=== PATIENT | female | born 1970 | race Caucasian/White ===

== ENCOUNTER 2024-11-06 08:31 | Inpatient (IN) | payer OTHER ==
[2024-11-06 09:23] LABS: Absolute Eosinophils 0.1 K/uL (0-0.5); Absolute Lymphocytes (CBC) 0.8 K/uL (0.7-4.9); Absolute Monocytes 0.3 K/uL (0.1-1.3); Absolute Neutrophil 7.2 K/uL (1.8-8.0); Basophils % 0.4 % (0-1.3); Eosinophils % 0.6 % (0-4.4); Hematocrit 30.7 % (36.0-45.0); Hemoglobin 9.8 g/dL (12.0-15.0); Lymphocytes % 9.2 % (15.3-44.8); MCH 24.8 pg (27.0-35.0); MCHC 31.9 g/dL (32.0-36.0); MCV 77.6 fL (80-100); MPV 9.1 fL (7.6-11.3); Monocytes % 3.2 % (3.3-12.3); Neutrophils % 86.6 % (41.7-73.7); Platelets 172 thou/uL (152-406); RBC Red Blood Cell Count 3.96 M/uL (3.86-4.86)
--- NOTE | 2024-11-06 09:41 | RAD REPORT ---
Procedure: Chest Single View HISTORY: Shortness of breath COMPARISON: none FINDINGS: Mild bilateral pulmonary opacities No significant pleural effusion noted. The heart is mildly enlarged. IMPRESSION: These findings probably indicate mild CHF
[2024-11-06 09:45] LABS: Albumin 3.5 g/dL (3.4-5.0); Albumin/Globulin Ratio 0.8 (1.1-1.8); Anion Gap 12.3 mEq/L (5.0-15.0); Bilirubin Direct 0.3 mg/dL (0-0.2); Bilirubin Indirect, Calculated 0.5 mg/dL (0.2-0.8); Bilirubin Total 0.8 mg/dL (0.2-1.0); Globulin 4.2 g/dL (2.3-3.5); Protein, Total 7.7 g/dL (6.4-8.2)
[2024-11-06 09:46] LABS: Magnesium 2.2 mg/dL (1.6-2.4); Potassium 4.3 mEq/L (3.5-5.1)
[2024-11-06 09:48] LABS: Troponin High Sensitivity 2547.4 pg/mL (<58.9)
[2024-11-06] MEDS ORDERED: NITROGLYCERIN 0.4 MG/TAB SL ONE (09:54)
[2024-11-06] MEDS ORDERED: ASPIRIN 81 MG CHEWABLE TABLET ONE (09:54)
[2024-11-06] MEDS ORDERED: HEPARIN 5000 UNIT/ML 1 ML VIAL ONE (10:11)
[2024-11-06] MEDS ORDERED: HEPARIN/D5W 25,000 UNIT/500 ML BAG IV ONE (10:11)
--- NOTE | 2024-11-06 10:12 | ER ---
Nurse's Notes [facility] Name: Cira Warren Age: 54 yrs Sex: Female : 1970 Arrival Date: 11/06/2024 Time: 08:31 Bed 15 Private MD: Diagnosis: Subsequent non-ST elevation (NSTEMI) myocardial infarction;Anemia, unspecified;Heart failure, unspecified;Essential (primary) hypertension Presentation: 11/06 08:32 Chief complaint: Patient states: trouble breathing since yesterday AM upon awakening. kc6 Coronavirus screen: At this time, the client does not indicate any symptoms associated with coronavirus-19. Ebola Screen: No symptoms or risks identified at this time. Initial Sepsis Screen: Does the patient meet any 2 criteria? No. Patient's initial sepsis screen is negative. Does the patient have a suspected source of infection? No. Patient's initial sepsis screen is negative. Risk Assessment: Do you want to hurt yourself or someone else? Patient reports no desire to harm self or others. Onset of symptoms was November 06, 2024. Care prior to arrival: Glucose check: 210. 08:32 Method Of Arrival: EMS: [facility] 08:32 Acuity: SWETHA 3 kc6 Historical: - Allergies: 08:34 No Known Allergies; kc6 - PMHx: 08:34 Diabetes mellitus; neuropathy; hyperlipidemia; kc6 - PSHx: 08:34 Appendectomy; kc6 - Immunization history:: Adult Immunizations up to date. - Infectious Disease History:: Denies. - Social history:: Smoking status: Patient reports the use of cigarette tobacco products, smokes one-half pack cigarettes per day, Reported history of juuling and/or vaping. Screenin:34 [facility] ED Fall Risk Assessment (Adult) History of falling in the last 3 months, kc6 including since admission No falls in past 3 months (0 pts) Confusion or Disorientation No (0 pts) Intoxicated or Sedated No (0 pts) Impaired Gait No (0 pts) Mobility Assist Device Used No (0 pt) Altered Elimination No (0 pt) Score/Fall Risk Level 0 - 2 = Low Risk Oriented to surroundings, Maintained a safe environment, Educated pt \\T\\ family on fall prevention, incl call for assistance when getting out of bed. Abuse screen: Denies threats or abuse. Denies injuries from another. Nutritional screening: No deficits noted. Tuberculosis screening: No symptoms or risk factors identified. Assessment: 08:32 General: Appears in no apparent distress. comfortable, well groomed, well developed, kc6 Behavior is calm, cooperative, appropriate for age. Pain: Complains of pain in mid-sternal area Pain does not radiate. Pain currently is 3 out of 10 on a pain scale. Quality of pain is described as burning, Pain began 1 day ago. Is intermittent. Neuro: Level of Consciousness is awake, alert, obeys commands, Oriented to person, place, time, situation, Appropriate for age. Cardiovascular: Reports chest pain, Heart tones S1 S2 present Capillary refill < 3 seconds Rhythm is sinus rhythm. Respiratory: Reports shortness of breath on exertion Airway is patent Trachea midline Respiratory effort is even, unlabored, Respiratory pattern is regular, symmetrical, Breath sounds are clear bilaterally. Onset: The symptoms/episode began/occurred yesterday. GI: No signs and/or symptoms were reported involving the gastrointestinal system. : No signs and/or symptoms were reported regarding the genitourinary system. EENT: No signs and/or symptoms were reported regarding the EENT system. Derm: No signs and/or symptoms reported regarding the dermatologic system. Skin is intact, is healthy with good turgor, Skin is dry, Skin is pale, Skin temperature is warm. Musculoskeletal: No signs and/or symptoms reported regarding the musculoskeletal system. Circulation, motion, and sensation intact. Range of motion: intact in all extremities. 09:32 Reassessment: Patient appears in no apparent distress at this time. No changes from kc6 previously documented assessment. Patient and/or family updated on plan of care and expected duration. Pain level reassessed. Patient is alert, oriented x 3, equal unlabored respirations, skin warm/dry/pink. 10:28 Reassessment: Patient appears in no apparent distress at this time. No changes from kc6 previously documented assessment. Patient and/or family updated on plan of care and expected duration. Pain level reassessed. Patient is alert, oriented x 3, equal unlabored respirations, skin warm/dry/pink. 10:52 Neuro: Reports headache that is the "worst ever". kc 11:52 Reassessment: Patient appears in no apparent distress at this time. No changes from kc6 previously documented assessment. Patient and/or family updated on plan of care and expected duration. Pain level reassessed. Patient is alert, oriented x 3, equal unlabored respirations, skin warm/dry/pink. Vital Signs: 08:32 BP 160 / 80; Pulse 83; Resp 18 S; Temp 97.7(O); Pulse Ox 97% on R/A; Weight 74.39 kg kc6 (R); Height 5 ft. 7 in. (R); 09:52 BP 162 / 82; Pulse 82; Resp 20 S; Pulse Ox 98% on R/A; kc6 10:28 BP 144 / 85; Pulse 74; Resp 18 S; Pulse Ox 100% on 2.5 lpm NC; kc6 08:32 Body Mass Index 25.69 (74.39 kg, 170.18 cm) 6 ED Course: 08:32 Patient arrived in ED. kc6 08:34 Triage completed. kc6 08:34 Arm band placed on. kc6 08:35 Patient has correct armband on for positive identification. Bed in low position. Call kc light in reach. Side rails up X2. Pulse ox on. NIBP on. Door closed. Noise minimized. Lights dimmed. Warm blanket given. Pillow given. Verbal reassurance given. 08:35 Patient maintains SpO2 saturation greater than 95% on room air. kc6 08:47 Nolberto Escobar DO is Attending Physician. ms3 08:48 Viktoriya Reddy, TAO is Primary Nurse. kc6 09:10 Inserted saline lock: 20 gauge in right forearm, using aseptic technique. Blood kc6 collected. Flushed with 10 mL NS. 09:32 XRAY Chest (1 view) In Process Unspecified. EDMS 09:49 Notified ED physician of a critical lab result(s). troponin 2,547.4. kc6 10:06 Inserted saline lock: 20 gauge in left forearm, using aseptic technique. Blood kc6 collected. Flushed with 10 mL NS. 10:10 Alexandra Hart MD is Hospitalizing Provider. ms3 12:00 No provider procedures requiring assistance completed. Patient admitted, IV remains in kc6 place. Administered Medications: 09:57 Drug: Nitroglycerin Sublingual 0.4 mg Sublingual once Route: Sublingual; kc6 10:41 Follow up: Response: No adverse reaction; Pain is decreased; Blood pressure is lowered kc6 09:57 Drug: Aspirin PO Chewable Tablet 324 mg PO once; 81 mg tablets x 4 Route: PO; kc6 10:41 Follow up: Response: No adverse reaction kc6 10:20 Drug: Heparin (IN-Bolus No thrombolytic) - HEParin IVP 60 units/kg IVP once; Max 5000 kc6 units {Co-Signature: (Jasbir Esquivel RN).} Route: IVP; Site: right forearm; 10:42 Follow up: Response: No adverse reaction kc6 10:20 Drug: Heparin (IN Drip) 12 units/kg/[place] - ([place] [address] units, D5W IV 500 ml) IV at kc6 calculated rate Per protocol; Max initial rate 1000 units/hr {Co-Signature: bp (Jasbir Esquivel RN).} Route: IV; Rate: calculated rate; Site: right forearm; 12:00 Follow up: Response: No adverse reaction; IV Status: Infusion continued upon admission; kc6 IV Intake: 500ml 10:52 Drug: Acetaminophen PO 1000 mg PO once Route: PO; kc6 12:00 Follow up: Response: No adverse reaction; Pain is unchanged, physician notified kc6 Medication: 12:00 VIS not applicable for this client. kc6 Intake: 12:00 IV: 500ml; Total: 500ml. kc6 Outcome: 10:11 Decision to Hospitalize by Provider. ms3 12:00 Admitted to ER Hold. Please see [facility] for further documentation. kc6 12:00 Condition: stable 12:00 Instructed on the need for admit, 17:44 Patient left the ED. kc6 Signatures: Dispatcher [employer] EDMS Nolberto Escobar DO DO ms3 Viktoriya Reddy RN RN kc6 Jasbir Esquivel RN bp
--- NOTE | 2024-11-06 10:12 | EDPHYS ---
Physician Documentation [facility] Name: Cira Warren Age: 54 yrs Sex: Female : 1970 Arrival Date: 11/06/2024 Time: 08:31 Bed 15 Private MD: ED Physician Nolberto Escobar HPI: 11/06 10:04 This 54 yrs old Female presents to ER via EMS with complaints of Breathing Difficulty. ms3 10:04 54-year-old female with past medical history of diabetes, neuropathy, hyperlipidemia ms3 presents to the emergency department via [facility] for shortness of breath that began yesterday. Patient states she is also having some mild chest discomfort. Patient denies nausea, vomiting, diaphoresis. Patient notes she has been around multiple sick contacts while at work.. Historical: - Allergies: 08:34 No Known Allergies; kc6 - PMHx: 08:34 Diabetes mellitus; neuropathy; hyperlipidemia; kc6 - PSHx: 08:34 Appendectomy; kc6 - Immunization history:: Adult Immunizations up to date. - Infectious Disease History:: Denies. - Social history:: Smoking status: Patient reports the use of cigarette tobacco products, smokes one-half pack cigarettes per day, Reported history of juuling and/or vaping. ROS: 10:04 Constitutional: Negative for fever, and chills. ms3 10:04 MS/Extremity: Negative for injury and deformity, Skin: Negative for injury, rash, and discoloration, 10:04 Cardiovascular: Positive for chest pain, 10:04 Respiratory: Positive for cough, shortness of breath, Exam: 10:04 Constitutional: This is a well developed, well nourished patient who is awake, alert, ms3 and in no acute distress. Chest/axilla: Normal chest wall appearance and motion. Nontender with no deformity. Cardiovascular: Regular rate and rhythm with a normal S1 and S2. No gallops, murmurs, or rubs. Normal PMI, no JVD. No pulse deficits. Respiratory: Lungs have equal breath sounds bilaterally, clear to auscultation and percussion. No rales, rhonchi or wheezes noted. No increased work of breathing, no retractions or nasal flaring. Abdomen/GI: Soft, non-tender, with normal bowel sounds. No distension or tympany. No guarding or rebound. No evidence of tenderness throughout. Skin: Warm, dry with normal turgor. Normal color with no rashes, no lesions, and no evidence of cellulitis. MS/ Extremity: Pulses equal, no cyanosis. Neurovascular intact. Full, normal range of motion. 10:04 ECG was reviewed by the Attending Physician. Vital Signs: 08:32 BP 160 / 80; Pulse 83; Resp 18 S; Temp 97.7(O); Pulse Ox 97% on R/A; Weight 74.39 kg kc6 (R); Height 5 ft. 7 in. (R); 09:52 BP 162 / 82; Pulse 82; Resp 20 S; Pulse Ox 98% on R/A; kc6 10:28 BP 144 / 85; Pulse 74; Resp 18 S; Pulse Ox 100% on 2.5 lpm NC; kc6 08:32 Body Mass Index 25.69 (74.39 kg, 170.18 cm) kc6 MDM: 08:51 Medical Screening Exam initiated ms3 10:04 Differential diagnosis: Anemia Chronic Obstructive Pulmonary Disease Myocardial ms3 Infarction pneumonia, pulmonary edema. Data reviewed: vital signs, nurses notes, lab test result(s), radiologic studies, and as a result, I will admit patient. Consideration of Admission/Observation Patient was admitted/placed on observation. Management of patient was discussed with the following: Assistant Cross Country Coach: Dr Roca will consult on patient. Agrees with Heparin ggt. I considered the following discharge prescriptions or medication management in the emergency department Medications were administered in the Emergency Department. See MAR. Independent interpretation of the following test(s) in the Emergency Department EKG: See my EKG interpretation above. Historians other than the Patient: EMS: [facility]. Counseling: I had a detailed discussion with the patient and/or guardian regarding the historical points, exam findings, and any diagnostic results supporting the discharge/admit diagnosis, lab results, radiology results, the need for further work-up and treatment in the hospital. ED course: Discussed case with Dr Roca and Dr Hart. Dr Hart accepts patient as admission. All questions answered.. 11/06 08:48 Order name: Basic Metabolic Panel; Complete Time: 09:50 ms3 11/06 08:48 Order name: CBC with Diff; Complete Time: 13:26 ms3 11/06 08:48 Order name: LFT's; Complete Time: 09:50 ms3 11/06 08:48 Order name: Magnesium; Complete Time: 09:50 ms3 11/06 08:48 Order name: NT PRO-BNP; Complete Time: 09:50 ms3 11/06 08:48 Order name: Troponin HS; Complete Time: 09:50 ms3 11/06 09:55 Order name: PT-INR; Complete Time: 10:45 ms3 11/06 09:55 Order name: Ptt, Activated; Complete Time: 10:45 ms3 11/06 10:57 Order name: CBC Smear Scan; Complete Time: 13:26 EDMS 11/06 12:08 Order name: Magnesium; Complete Time: 16:02 EDMS 11/06 12:08 Order name: Basic Metabolic Panel EDMS 11/06 12:08 Order name: Phosphorus; Complete Time: 16:02 EDMS 11/06 12:08 Order name: T4 Free; Complete Time: 16:02 EDMS 11/06 12:08 Order name: Basic Metabolic Panel EDMS 11/06 12:08 Order name: Thyroid Stimulating Hormone; Complete Time: 16:02 EDMS 11/06 12:08 Order name: CBC with Automated Diff EDMS 11/06 12:08 Order name: CBC with Automated Diff EDMS 11/06 12:08 Order name: Urinalysis w/ reflexes; Complete Time: 16:02 EDMS 11/06 14:52 Order name: Ptt, Activated kc6 11/06 15:25 Order name: PTT, Activated Partial Thromb; Complete Time: 16:02 EDMS 11/06 08:48 Order name: XRAY Chest (1 view); Complete Time: 09:50 ms3 11/06 08:48 Order name: EKG; Complete Time: 08:48 ms3 11/06 08:48 Order name: Cardiac monitoring; Complete Time: 09:10 ms3 11/06 08:48 Order name: EKG - Nurse/Tech; Complete Time: 09:10 ms3 11/06 08:48 Order name: IV Saline Lock; Complete Time: 09:10 ms3 11/06 08:48 Order name: Labs collected and sent; Complete Time: 09:10 ms3 11/06 08:48 Order name: O2 Per Protocol; Complete Time: 08:48 ms3 11/06 08:48 Order name: O2 Sat Monitoring; Complete Time: 08:48 ms3 EC:04 Rate is 74 beats/min. Rhythm is regular. Right axis deviation noted. QRS interval is ms3 normal. Clinical impression: NSR w/ Non-specific ST/T Changes. Interpreted by me. Reviewed by me. Administered Medications: 09:57 Drug: Nitroglycerin Sublingual 0.4 mg Sublingual once Route: Sublingual; kc6 10:41 Follow up: Response: No adverse reaction; Pain is decreased; Blood pressure is lowered kc6 09:57 Drug: Aspirin PO Chewable Tablet 324 mg PO once; 81 mg tablets x 4 Route: PO; kc6 10:41 Follow up: Response: No adverse reaction kc6 10:20 Drug: Heparin (IA-Bolus No thrombolytic) - HEParin IVP 60 units/kg IVP once; Max 5000 kc6 units {Co-Signature: bp (Jasbir Esquivel RN).} Route: IVP; Site: right forearm; 10:42 Follow up: Response: No adverse reaction kc6 10:20 Drug: Heparin ([place] Drip) 12 units/kg/[place] - ([place] [address] units, D5W IV 500 ml) IV at kc6 calculated rate Per protocol; Max initial rate 1000 units/hr {Co-Signature: bp (Jasbir Esquivel RN).} Route: IV; Rate: calculated rate; Site: right forearm; 12:00 Follow up: Response: No adverse reaction; IV Status: Infusion continued upon admission; kc6 IV Intake: 500ml 10:52 Drug: Acetaminophen PO 1000 mg PO once Route: PO; kc6 12:00 Follow up: Response: No adverse reaction; Pain is unchanged, physician notified kc6 Disposition Summary: 11/06/24 10:11 Hospitalization Ordered Notes: Hospitalization Status: Inpatient Admission ms3 Provider: Alexandra Hart ms3 Condition: Stable ms3 Problem: new ms3 Symptoms: are unchanged ms3 Bed/Room Type: Standard ms3 Location: Telemetry/MedSurg (Inpatient)(11/06/24 16:22) bd Room Assignment: 229(11/06/24 16:22) bd Diagnosis - Subsequent non-ST elevation (NSTEMI) myocardial infarction ms3 - Anemia, unspecified ms3 - Heart failure, unspecified ms3 - Essential (primary) hypertension ms3 Forms: - Medication Reconciliation Form ms3 - SBAR form ms3 - Leadership Thank You Letter ms3 Critical care time excluding procedures: 10:10 Critical care time: Bedside Care: 35 minutes, Consultation: 5 minutes. Total time: 40 ms3 minutes Signatures: Dispatcher [employer] EDYahaira Lopez Marcus, DO DO ms3 Viktoriya Reddy RN RN kc6 Dilia Lam RN RN kb3 Jasbir Esquivel RN bp Corrections: (The following items were deleted from the chart) 12:29 10:11 Telemetry/MedSurg (Inpatient) ms3 kb3 12:29 10:11 ms3 kb3 16:22 12:29 BR ER HOLD kb3 bd 16:22 12:29 ERHOLD- kb3 bd
[2024-11-06] MEDS: HEPARIN/D5W 25,000 UNIT/500 ML BAG IV SCH (10:20)
[2024-11-06 10:28] LABS: PT Prothrombin Time 13.6 SECONDS (10-13.0); PTT, Activated Partial Thromb 31.8 SECONDS (27.2-37.4); Protime INR 1.2
[2024-11-06] MEDS ORDERED: ACETAMINOPHEN 500 MG TAB ONE (10:43)
[2024-11-06 10:56] LABS: Anisocytosis 1+; Blood Morphology Comment NOTED (NOT SEEN); Microcytosis 1+; Platelet Estimate ADEQ; White Blood Cell Scan OK (OK)
[2024-11-06 10:58] LABS: Ovalocytes SLIGHT
[2024-11-06] MEDS ORDERED: ACETAMINOPHEN 325 MG TABLET PO PRN (12:02)
[2024-11-06] MEDS ORDERED: ONDANSETRON 4 MG/2 ML VIAL IV PRN (12:06)
--- NOTE | 2024-11-06 12:10 | P.HP ---
Certification for Inpatient Patient admitted to: Inpatient With expected LOS: >2 Midnights Patient will require the following post-hospital care: None Practitioner: I am a practitioner with admitting privileges, knowledge of patient current condition, hospital course, and medical plan of care. Services: Services provided to patient in accordance with Admission requirements found in Title 42 Section 412.3 of the Code of Federal Regulations <Keegan Dolan - Last Filed: 11/06/24 22:42> Patient History Date of Service: 11/06/24 Reason for admission: Chest pain History of Present Illness: Patient is a 54-year-old female with a past medical history significant for DM2 with neuropathy, hyperlipidemia, nicotine dependence who presents with complaint of substernal chest pain onset yesterday. Patient rated pain as 5/10 in severity and described pain as sharp in quality. Patient reported associated signs and symptoms of chest tightness, cough and shortness of breath. Patient denies any other signs and symptoms. Symptoms are aggravated or relieved by nothing. Patient decided to present to the hospital due to worsening symptoms. - Past Medical/Surgical History -: DM 2 WithNeuropathy -: HLD -: Nicotine dependence Past Surgical History: Patient denies surgical history - Family History Family History: Reviewed- Non-Contributory - Social History Smoking Status: Current every day smoker Counseled patient to stop smoking for: less than 10 minutes Smoking therapy provided: Yes Patient receptive to therapy: Yes Alcohol use: No CD- Drugs: No Caffeine use: No Place of Residence: Home <Keegan Dolan - Last Filed: 11/06/24 22:42> Date of Service: 11/06/24 <Alexandra Hart - Last Filed: 11/28/24 14:54> Allergies No Known Allergies Allergy (Verified 03/28/12 17:20) Home Medications: Duloxetine [Cymbalta *] 100 mg PO DAILY 11/06/24 Gabapentin 1,200 mg PO TID 11/06/24 Insulin NPH Hum/Reg Insulin Hm [Novolin 70-30 100 Unit/ml Vial] 25 units SQ BID 11/06/24 Losartan Potassium 100 mg PO DAILY 11/06/24 Quetiapine Fumarate [Seroquel] 100 mg PO BID 11/06/24 Review of Systems General: Unremarkable Eyes: Unremarkable ENT: Unremarkable Respiratory: Cough, Shortness of Breath, Other (Chest tightness) Cardiovascular: Chest Pain Gastrointestinal: Unremarkable Genitourinary: Unremarkable Musculoskeletal: Unremarkable Integumentary: Unremarkable Neurological: Unremarkable Lymphatics: Unremarkable <Keegan Dolan - Last Filed: 11/06/24 22:42> Physical Examination - Physical Exam General: Alert, In no apparent distress, Oriented x3, Cooperative HEENT: Atraumatic, PERRLA, Mucous membr. moist/pink, EOMI, Sclerae nonicteric Neck: Supple, 2+ carotid pulse no bruit, No LAD, Without JVD or thyroid abnormality Respiratory: Clear to auscultation bilaterally, Normal air movement Cardiovascular: No edema, Regular rate/rhythm, Normal S1 S2 Capillary refill: <2 Seconds Gastrointestinal: Normal bowel sounds, Non-distended, No tenderness Musculoskeletal: No clubbing, No tenderness Integumentary: No rashes Neurological: Normal gait, Normal speech, Normal tone, Normal affect Lymphatics: No axilla or inguinal lymphadenopathy - Studies Laboratory Data (last 24 hrs) 11/06/24 11/06/24 11/06/24 10:06 09:09 09:09 WBC 8.30 Hgb 9.8 L Hct 30.7 L Plt Count 172 PT 13.6 H INR 1.20 APTT 31.8 Sodium 137 Potassium 4.3 BUN 13 Creatinine 0.68 Glucose 206 H Magnesium 2.2 Total Bilirubin 0.8 AST 28 ALT 23 Alkaline Phosphatase 126 H <Keegan Dolan - Last Filed: 11/06/24 22:42> Assessment and Plan - Plan NSTEMI --Will continue to trend serial troponins. --Patient started on heparin drip. --Cardiology consulted. Recommendations appreciated. --Echocardiogram pending to assess cardiac structures and functions. --Continue aspirin and statin --Cardiology plans a left heart cath in a.m. Suspected systolic or diastolic CHF Elevated BNP --Basket Maker recommend starting Lasix twice daily --Daily weight and strict I/O. --Echocardiogram pending to assess LV\valvular functions and wall motions. Nicotine dependence. --Patient counseled on tobacco cessation. --Placed on nicotine patch. Hyperlipidemia --Continue statin DM2 with hyperglycemia and neuropathy --BS monitoring with sliding scale insulin and NPH. --Continue gabapentin for her neuropathy Hypertension. --Poorly controlled. --We manage BP with hydralazine as needed. DVT prophylaxis with heparin drip Discharge Plan: Home Plan to discharge in: Greater than 2 days - Advance Directives Does patient have a Living Will: No Does patient have a Durable POA for Healthcare: No - Code Status/Comfort Care Code Status Assessed: Yes Physician Review: Patient Assessed, Agree with Above Assessment and Plan Critical Care: No <Keegan Dolan - Last Filed: 11/06/24 22:42> - Problems (Diagnosis) (1) Type [address] elevation Status: Acute (2) Metabolic syndrome Status: Acute (3) Tobacco abuse Status: Acute <Alexandra Hart - Last Filed: 11/28/24 14:54> Date of Service: 11/06/24 Patient was seen and examined. Events of the last 24 hours have been noted. Spoke with with JOSE ANGEL regarding patient's clinical picture after evaluating and examining the patient independently. I performed a substantial part of the MDM during this patient's care today. I personally made or approved the documented management plan and acknowledge its risk of complications. I agree with the findings and documentation provided in the JOSE ANGEL's notes. Further evaluation by cardiology <Alexandra Hart - Last Filed: 11/28/24 14:54>
--- NOTE | 2024-11-06 13:45 | P.CNS ---
Date of Consult: 11/06/24 Chief Complaint: SOB, CP History of Present Illness: Patient with no significant PMH presented with new onset SOB, cough, HARTMAN and chest pressure sensation, denies any other cardiac symptoms, no palpitations, no syncope. Allergies No Known Allergies Allergy (Verified 03/28/12 17:20) Home medications list reviewed: Yes Review of Systems 10-point ROS is otherwise unremarkable Physical Examination General: Alert, In no apparent distress HEENT: Atraumatic, PERRLA, Mucous membr. moist/pink, EOMI, Sclerae nonicteric Neck: Supple, 2+ carotid pulse no bruit, No LAD, Without JVD or thyroid abnormality Respiratory: Clear to auscultation bilaterally, Normal air movement Cardiovascular: Regular rate/rhythm, Normal S1 S2 Gastrointestinal: Normal bowel sounds, No tenderness Musculoskeletal: No tenderness Integumentary: No rashes Neurological: Normal gait, Normal speech, Normal tone, Normal affect Lymphatics: No axilla or inguinal lymphadenopathy Laboratory Data (last 24 hrs) 11/06/24 11/06/24 11/06/24 10:06 09:09 09:09 WBC 8.30 Hgb 9.8 L Hct 30.7 L Plt Count 172 PT 13.6 H INR 1.20 APTT 31.8 Sodium 137 Potassium 4.3 BUN 13 Creatinine 0.68 Glucose 206 H Magnesium 2.2 Total Bilirubin 0.8 AST 28 ALT 23 Alkaline Phosphatase 126 H - Problems (1) NSTEMI (non-ST elevated myocardial infarction) Current Visit: Yes Status: Acute Plan: Patient EKG shows ST depression lateral leads, Troponin first set is elevated, ASA 81 mg daily Heparin drip get echo NPO after midnight for coronary angiogram in am (2) SOB (shortness of breath) Current Visit: Yes Status: Acute Plan: BNP is elevated, start patient on Lasix 40 mg IV BID Monitor input and output and electrolytes Echo
[2024-11-06] MEDS ORDERED: HYDROCODONE/APAP 5/325 MG TAB ONE (13:48)
[2024-11-06] MEDS: HYDROCODONE/APAP 5/325 MG TAB PO PRN (13:56)
[2024-11-06 15:01] VITALS: BMI 25.7
[2024-11-06 15:34] LABS: Specific Gravity 1.018 (1.005-1.030); Sqamous Epithelial <5 /HPF (None Seen); Urine Bacteria None Seen /HPF (<20); Urine Bilirubin NEGATIVE (Negative); Urine Blood Negative (Negative); Urine Clarity Clear (Clear); Urine Color Yellow (Yellow); Urine Culture Reflex Order NOT NEEDED; Urine Glucose NEGATIVE (Negative); Urine Ketones 1+ (Negative); Urine Microscopic Reflex YN ORDER UMIC; Urine Nitrite NEGATIVE (Negative); Urine Protein TRACE (Negative); Urine RBC <5 /HPF (None Seen); Urine Urobilinogen 2+ (Normal); Urine WBC None Seen /HPF (<5); Urine pH 6.5 (5.0-7.0)
[2024-11-06 15:54] LABS: Phosphorus 3.8 mg/dL (2.5-4.9); Thyroid Stimulating Hormone 0.778 uIU/mL (0.358-3.740)
[2024-11-06] MEDS: MORPHINE 4 MG/ML SYR IV ONE (22:31)
[2024-11-06] MEDS ORDERED: D50W 25 GM/50 ML SYRINGE IV PRN (22:40)
[2024-11-06] MEDS ORDERED: GLUCAGON 1 MG/VIAL IM PRN ×2 (22:40→22:50)
[2024-11-06] MEDS ORDERED: D10W 125 ML IV PRN ×2 (22:48→22:50)
[2024-11-07] MEDS: FUROSEMIDE 40 MG/4 ML VIAL IV SCH (00:31)
[2024-11-07] MEDS ORDERED: ALBUTEROL 2.5 MG/3 ML NEB SOL NEB SCH (01:00)
[2024-11-07] MEDS: LEVALBUTEROL 1.25 MG/3 ML NEB ONE (04:21)
[2024-11-07 06:21] LABS: Anion Gap 10.3 mEq/L (5.0-15.0); Potassium 3.3 mEq/L (3.5-5.1)
[2024-11-07 06:23] LABS: Absolute Lymphocytes (CBC) 0.9 K/uL (0.7-4.9); Absolute Monocytes 0.4 K/uL (0.1-1.3); Absolute Neutrophil 7.7 K/uL (1.8-8.0); Basophils % 0.3 % (0-1.3); Eosinophils % 0.5 % (0-4.4); Hematocrit 30.3 % (36.0-45.0); Hemoglobin 9.8 g/dL (12.0-15.0); Lymphocytes % 9.7 % (15.3-44.8); MCH 24.5 pg (27.0-35.0); MCHC 32.4 g/dL (32.0-36.0); MCV 75.5 fL (80-100); MPV 9.6 fL (7.6-11.3); Monocytes % 4.6 % (3.3-12.3); Neutrophils % 84.9 % (41.7-73.7); Nucleated Red Blood Cells % 0.3 % (0-0); Platelets 183 thou/uL (152-406); RBC Red Blood Cell Count 4.01 M/uL (3.86-4.86); Red Cell Distribution Width 16.8 % (12.1-15.2)
[2024-11-07] MEDS ORDERED: HEPA 1000U/500MLS 2,000 UNIT/1,000 ML BAG IV ONE (06:48)
[2024-11-07] MEDS ORDERED: HEPARIN 10,000 UNIT/10 ML VIAL IV ONE (06:49)
[2024-11-07] MEDS ORDERED: ATROPINE SULF 1 MG/10 ML SYR IV ONE (06:49)
[2024-11-07] MEDS ORDERED: MIDAZOLAM HCL 2 MG/2 ML INJ ONE (06:49)
[2024-11-07] MEDS ORDERED: LIDOCAINE 1% 20 ML MDV ONE (06:49)
[2024-11-07] MEDS ORDERED: CLOPIDOGREL 75 MG TABLET ONE (06:50)
[2024-11-07] MEDS ORDERED: ASPIRIN 325 MG TAB ONE (06:50)
[2024-11-07] MEDS ORDERED: FENTANYL CITR 100 MCG/2 ML ONE (06:50)
[2024-11-07] MEDS ORDERED: HEPARIN 5000 UNIT/ML 1 ML VIAL ONE (06:50)
[2024-11-07] MEDS ORDERED: TICAGRELOR 90 MG TABLET PO ONE (06:50)
[2024-11-07] MEDS: LEVALBUTEROL 1.25 MG/3 ML NEB NEB SCH (07:00)
[2024-11-07] MEDS: INSULIN REGULAR (HUMAN) 100 UNIT/ML SQ SCH (07:30)
[2024-11-07] MEDS ORDERED: NA CHLORIDE 0.9% 500 ML ONE (07:44)
[2024-11-07] MEDS: INSULIN 70/30 100 UNITS/ML SQ SCH (08:00)
[2024-11-07] MEDS: GABAPENTIN 300 MG CAP PO SCH (08:04)
[2024-11-07] MEDS ORDERED: INSULIN 70/30 100 UNITS/ML SQ SCH ×2 (09:00→17:00)
[2024-11-07] MEDS: DULOXETINE 20 MG CAP PO SCH (11:51)
[2024-11-07] MEDS: NICOTINE 21 MG/PAT TD SCH (11:52)
--- NOTE | 2024-11-07 11:58 | P.PN ---
Subjective Date of Service: 11/07/24 Chief Complaint: Chest pain Subjective: No new changes, No C/O voiced, Tolerating diet, Ambulating, Improving Review of Systems 10-point ROS is otherwise unremarkable Physical Examination - Vital Signs Temperature: 97.5 F Blood Pressure: 159/69 Pulse: 75 Respirations: 17 Pulse Ox (%): 98 - Physical Exam General: Alert, In no apparent distress HEENT: Atraumatic, PERRLA, EOMI Neck: Supple, JVD not distended Respiratory: Clear to auscultation bilaterally, Normal air movement Cardiovascular: Regular rate/rhythm, Normal S1 S2 Gastrointestinal: Normal bowel sounds, No tenderness Musculoskeletal: No tenderness Integumentary: No rashes Neurological: Normal speech, Normal tone, Normal affect Lymphatics: No axilla or inguinal lymphadenopathy - Studies Medications List Reviewed: Yes Assessment And Plan - Current Problems (Diagnosis) (1) NSTEMI (non-ST elevated myocardial infarction) Current Visit: Yes Status: Acute Plan: Patient Coronary angiogram done today and shows multivessel CAD, patient pending transfer to [facility] for CABG evaluation., ASA 81 mg daily resume Heparin drip in 2 hours get echo (2) SOB (shortness of breath) Current Visit: Yes Status: Acute Plan: BNP is elevated, continue Lasix 40 mg IV BID Monitor input and output and electrolytes start patient on Coreg 3.125 mg po BID Resume Losartan 50 mg daily Echo Physician Review: Patient Assessed, Agree with Above Assessment and Plan
--- NOTE | 2024-11-07 12:32 | EKG ---
Test Date: 2024-11-06 Test Time: 08:58:41 Slurry Mixer: DAVID MEASUREMENT RESULTS: Intervals: Rate: 74 OK: 154 QRSD: 96 QT: 414 QTc: 459 [place]: P: 47 OK: 154 QRS: 101 T: -1 INTERPRETIVE STATEMENTS: Normal sinus rhythm Rightward axis Anterior infarct, age undetermined Abnormal ECG Compared to ECG 08/03/2007 21:29:22 Right-axis deviation now present Myocardial infarct finding now present Sinus tachycardia no longer present Electronically Signed On 11-07-24 12:26:15 CDT by Nick Roca
[2024-11-07] MEDS: POTASSIUM CL SA 10 MEQ TAB PO ONE (13:25)
[2024-11-07] MEDS: HYDRALAZINE HCL 20 MG/ML VIAL IV PRN (13:27)
--- NOTE | 2024-11-07 16:15 | OP ---
Date of Procedure: 11/07/2024 Surgeon: Nick Roca Procedures Performed: 1. Selective coronary angiogram. 2. Left heart catheterization. Indication For Procedure: [id number] AR. Complications: None. Estimated Blood Loss: Less than 50 cc. Access: Right radial, closed by TR band. Sedation Time: 20 minutes with 1 of Versed and 25 of fentanyl. Description Of Procedure: After risks, and benefits, and alternatives were explained to the patient, patient agreed to proceed with procedure and signed informed consent. The patient was brought back to the lab tester, prepped and draped in sterile fashion. Time-out was performed. Sedation was admini stered. Next, right radial access was obtained using an ultrasound-guided micropuncture technique. [place] 4.0 catheter was advanced over a J-wire to the LV cavity. LVEDP was obtained. Pullback did no t show any gradient. Same catheter was used for selective angiogram of the left and right coronary a rteries. At the end of procedure, catheter was removed back to the nonselective shot of the CYRUS and then catheter was removed over a J-wire. Sheath was removed. TR band was applied. Hemostasis was a chieved, and the patient was moved back to Recovery in stable condition. Findings: 1. Left main normal. 2. LAD; large with very tortuous artery with mid 80% disease before it takes a 90 degree bend after d iagonal 1 takeoff that has got mild luminal irregularities, then distal mild luminal irregularities o f the LAD. 3. Left circ; small, gives OM1 and OM2, that has both got small diffuse proximal 80% disease, then mi ld luminal irregularities. 4. RCA; large dominant with mid 90% disease, then mild luminal irregularities. 5. Left subclavian artery/ASH patent. 6. LVEDP 19 mmHg. Assessment And Plan: Significant very tortuous mid LAD disease and mid RCA disease with small OM1 an d OM2 disease. The patient will be transferred for inpatient CABG, to be seen in hospital evaluation. CHRISTINE/NIESHA Voice ID: [id number] Report ID: [id number]
[2024-11-07] MEDS: QUETIAPINE 100MG TAB PO SCH (21:10)
[2024-11-07] MEDS: GABAPENTIN 300 MG CAP PO ONE (21:11)
[2024-11-07 23:02] VITALS: O2SAT 96
[2024-11-07 23:27] LABS: Troponin High Sensitivity 2081.1 pg/mL (<58.9)
[2024-11-08 01:24] VITALS: BP 100/63; TEMP 97.5
--- NOTE | 2024-11-28 14:50 | P.PN ---
Subjective Date of Service: 11/07/24 Patient scheduled for cardiac catheterization today. Continues to have some chest pain. Continue with anti-platelet therapy and statin therapy. Review of Systems 10-point ROS is otherwise unremarkable Physical Examination - Vital Signs Temperature: 97.5 F Blood Pressure: 100/63 Pulse: 100 Respirations: 18 Pulse Ox (%): 99 - Physical Exam General: Alert, In no apparent distress, Oriented x3 Respiratory: Clear to auscultation bilaterally, Normal air movement Cardiovascular: Regular rate/rhythm, Normal S1 S2, No murmurs Gastrointestinal: Normal bowel sounds, Soft and benign, Non-distended, No ten derness Musculoskeletal: No clubbing, No swelling, No tenderness Neurological: Sensation intact, Cranial nerves 3-12 intact - Studies Medications List Reviewed: Yes Assessment & Plan - Problems (Diagnosis) (1) Type [address] elevation Status: Acute (2) Metabolic syndrome Status: Acute (3) Tobacco abuse Status: Acute - Plan 1. Patient with type 1 myocardial infarction; scheduled for cardiac catheterization will continue with anticoagulation. Continue with anti-platelet therapy and statin therapy. 2. Metabolic syndrome; strict blood pressure and blood sugar control 3. Nicotine dependence; continue with patch and elementary school counselor regarding cessation 4. GI/DVT prophylaxis Discharge Plan: Home Plan to discharge in: Greater than 2 days - Advance Directives Does patient have a Living Will: No Does patient have a Durable POA for Healthcare: No - Code Status/Comfort Care Code Status Assessed: Yes Code Status: Full Code Physician Review: Patient Assessed, Agree with Above Assessment and Plan Critical Care: No Time Spent Managing PTS Care (In Minutes): 35
--- NOTE | 2024-11-28 14:53 | P.DS ---
Discharge Date: 11/08/24 Disposition: [facility]SFER TO [facility] Discharge Condition: CRITICAL Reason for Admission: Chest pain - Problems (1) Type [address] elevation Status: Acute (2) Metabolic syndrome Status: Acute (3) Tobacco abuse Status: Acute Brief History of Present Illness: Patient is a 54-year-old female with a past medical history significant for DM2 with neuropathy, hyperlipidemia, nicotine dependence who presents with complaint of substernal chest pain onset yesterday. Patient rated pain as 5/10 in severity and described pain as sharp in quality. Patient reported associated signs and symptoms of chest tightness, cough and shortness of breath. Patient denies any other signs and symptoms. Symptoms are aggravated or relieved by nothing. Patient decided to present to the hospital due to worsening symptoms. Hospital Course: patient had a type 1 myocardial infarction and was taken to the cardiac catheterization lab and was found have multivessel disease. Patient was transferred to [facility] for evaluation for bypass surgery. Vital Signs/Physical Exam: Temp Pulse Resp BP Pulse Ox 97.5 F 100 H 18 100/63 99 11/28/24 14:50 11/28/24 14:50 11/28/24 14:50 11/28/24 14:50 11/28/24 14:50 General: Alert, In no apparent distress, Oriented x3 Laboratory Data at Discharge: WBC 9.10 thou/uL (4.3-10.9) 11/07/24 05:43 Hgb 9.8 g/dL (12.0-15.0) L 11/07/24 05:43 Hct 30.3 % (36.0-45.0) L 11/07/24 05:43 Plt Count 183 thou/uL (152-406) 11/07/24 05:43 PT 13.6 SECONDS (10-13.0) H 11/06/24 10:06 INR 1.20 11/06/24 10:06 APTT Cancelled 11/08/24 02:00 Sodium 137 mEq/L (136-145) 11/07/24 05:43 Potassium 3.0 mEq/L (3.5-5.1) L 11/07/24 22:48 BUN 13 mg/dL (7-18) 11/07/24 05:43 Creatinine 0.61 mg/dL (0.55-1.02) 11/07/24 05:43 Glucose 278 mg/dL (74-106) H 11/07/24 05:43 Phosphorus 3.8 mg/dL (2.5-4.9) 11/06/24 15:12 Magnesium 2.0 mg/dL (1.6-2.4) 11/06/24 15:12 Total Bilirubin 0.8 mg/dL (0.2-1.0) 11/06/24 09:09 AST 28 U/L (15-37) 11/06/24 09:09 ALT 23 U/L (13-56) 11/06/24 09:09 Alkaline Phosphatase 126 U/L (45-117) H 11/06/24 09:09 Home Medications: Duloxetine [Cymbalta *] 100 mg PO DAILY 11/06/24 Gabapentin 1,200 mg PO TID 11/06/24 Insulin NPH Hum/Reg Insulin Hm [Novolin 70-30 100 Unit/ml Vial] 25 units SQ BID 11/06/24 Losartan Potassium 100 mg PO DAILY 11/06/24 Quetiapine Fumarate [Seroquel] 100 mg PO BID 11/06/24 Physician Discharge Instructions: Transfer to [facility] for evaluation by CT surgery Diet: AHA Activity: Fall precautions Followup: Nayeli Miner [Primary Care Provider] - Time spent managing pt's care (in minutes): 35
== END 2024-11-08 00:22 | disposition short-term general hospital (02) | DRG 282 ==
LOC: ER 08:31 → ERHOLD 12:01 → 2ND 17:43
PROVIDERS: ADMIT Hospitalist; ATTEND Hospitalist
PROC: 4A023N7 Measurement of Cardiac Sampling and Pressure, Left Heart, Percutaneous Approach (ICD-10-PCS; principal; 2024-11-07)
PROC: B2111ZZ Fluoroscopy of Multiple Coronary Arteries using Low Osmolar Contrast (ICD-10-PCS; 2024-11-07)
DX: I21.9 Acute myocardial infarction, unspecified (principal); I11.0 Hypertensive heart disease with heart failure; I50.9 Heart failure, unspecified; E78.5 Hyperlipidemia, unspecified; E11.65 Type 2 diabetes mellitus with hyperglycemia; E11.40 Type 2 diabetes mellitus with diabetic neuropathy, unspecified; E88.810 Metabolic syndrome; D64.9 Anemia, unspecified; I25.10 Atherosclerotic heart disease of native coronary artery without angina pectoris; F17.210 Nicotine dependence, cigarettes, uncomplicated; Z79.4 Long term (current) use of insulin; Z90.49 Acquired absence of other specified parts of digestive tract; Z79.899 Other long term (current) drug therapy
CPT/HCPCS: 36415; 71045; 76937; 80048; 80076; 81001; 82947; 83735; 83880; 84100; 84132; 84439; 84443; 84484; 85025; 85610; 85730; 93005; 93458; 94640; 94760; 96365; 96366; 99152; 99153; 99285; C1893; J0360; J0461; J1644; J1815; J1940; J2003; J2250; J3010; J7040; J7614; Q9966

== ENCOUNTER 2024-11-24 08:05 | Emergency (ER) | payer OTHER ==
--- OUTSIDE RECORDS SUMMARY | 2024-11-24 08:14 | XMS REPORT | Continuity of Care Document ---
Author Name Unknown Address [address] [facility] [address] [place] [address] [facility] [place] Address [address] [facility] [place] [address] Care Team Providers Care Golf Ball Molder Name Role Phone Flynn Becerra Attending Clinician Unavailab le UNKNOWN Attending Clinician Unavailable REMBERTO CONNORS Attending Clinician Unavailable LAB90 Attending Clinician Unavailable LAVELLE WILSON Attending Clinician Unavailable LAVELLE JOINER Attending Clinician Unavailable EVERARDO PAN Attending Clinician Unavailable Angela Aceves Admitting Clinician Unavailable Payers Payer Name Policy Type Policy Number Effective Date Expirati on Date Source [facility] 2 [id number] 2022 00:00:00 [facility] 9 [id number] 2022 00:00:00 Problems Condition Name Condition Details Condition Category Status Onset Date Resolution Date Last Treatment Date Treating Clinician Comments Source Dizziness Dizziness Disease Active 01-04 00:00: 00 Nancy ortega Stress reaction Stress reaction Disease Active 01-04 00:00: 00 Nancy ortega Snoring Snoring Disease Active 11-30 00:00: 00 Nancy ortega Chronic pain of left knee Chronic pain of left knee Disease Active 11-30 00:00: 00 Nancy Alba - Externa shannon 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 type 2 with diabetic mixed hyperlipid emia Disease Active 11-30 00:00: 00 Nancy Alba - Externa l Type 2 diabetes mellitus with hyperglyce branden, with long-term current use of insulin Type 2 diabetes mellitus with hyperglyce branden, with long-term current use of insulin Disease Active 11-30 00:00: 00 Nancy Alba - Externa shannon Vitamin D deficiency Vitamin D deficiency Disease Active 11-30 00:00: 00 Nancy Alba - Externa shannon Primary insomnia Primary insomnia Disease Active 10-01 00:00: 00 Nancy Alba - Externa l Chronic bilateral low back pain without sciatica Chronic bilateral low back pain without sciatica Disease Active 10-01 00:00: 00 Nancy Alba - Externa l DDD (degenerat leon disc disease), lumbar DDD (degenerat leon disc disease), lumbar Disease Active 10-01 00:00: 00 Nancy Cassidy Externa shannon Class 2 severe obesity due to excess calories with serious comorbidit y and body mass index (BMI) of 37.0 to 37.9 in adult Class 2 severe obesity due to excess calories with serious comorbidit y and body mass index (BMI) of 37.0 to 37.9 in adult Disease Active 10-01 00:00: 00 Nancy Alba - Externa shannon Diabetic polyneurop athy associated with type 2 diabetes mellitus Diabetic polyneurop athy associated with type 2 diabetes mellitus Disease Active 10-01 00:00: 00 Nancy Alba - Externa l Primary hypertensi on Primary hypertensi on Disease Active 10-01 00:00: 00 Nancy Alba - Externa l Allergies, Adverse Reactions, Alerts Allergy Name Allergy Type Status Severity Reaction(s) Onset Date Inactive Date Treating Clinician Comments Source heparin DA Active U BLOOD CLOT 11-13 00:00: 00 [facility] No Known Allergie s DA Active U 20 00:00: 00 [facility] Azithrom ycin Propensi ty to adverse reaction s Active Itching 2 00:00: 00 Nancy ortega Social History Social Habit Start Date Stop Date Quantity Comments Source History of tobacco use Cigarette Smoker Nancy serrato - External Gender identity Radha artis Parth - External Sexual orientation Kallie horn Parth - External Alcohol intake 2023-02-17 00:00:00 2023-02-17 00:00:00 Ex-drinker (finding) Nancy Alba - External Cigarettes smoked current (pack per day) - Reported 2022-11-30 00:00:00 2022-11-30 00:00:00 Nancy Alba - External Cigarette pack-years 2022-11-30 00:00:00 2022-11-30 00:00:00 Nancy Alba - External Tobacco use and exposure 2022-11-30 00:00:00 2022-11-30 00:00:00 Smokeless tobacco non-user Nancy Alba - External History of Social function 2022-11-30 00:00:00 2022-11-30 00:00:00 Nancy Alba - External Education 2022-11-30 00:00:00 2022-11-30 00:00:00 14 Nancy Alba - External Sex Assigned At 1970 00:00:00 1970 00:00:00 Nancy Alba - External Smoking Status Start Date Stop Date Source Smokes tobacco daily 2022-11-30 00:00:00 Nancy Alba - External Medications Ordered Medication Name Filled Medication Name Start Date Stop Date Current Medication? Ordering Clinician Indication Dosage Frequency Signature (SIG) Comments Components Source Insulin Aspart Prot & Aspart (70-30) 100 UNIT/ML SC SUPN 02-17 13:42: 54 Yes 25U Inject 25 units into the skin nightly Nancy ortega Cholecalcif rico (Vitamin D) 25 MCG (1000 UT) oral Tablet 02-17 13:42: 54 Yes 25U Take 25 units by mouth daily Nancy ortega Gabapentin 300 MG oral Capsule 02-17 00:00: 00 Yes [id number] 900mg Take 3 capsules (900 mg total) by mouth 3 times daily Nancy ortega Losartan Potassium (COZAAR) 100 MG oral Tablet 02-17 00:00: 00 Yes [id number] 100mg Take 1 tablet (100 mg total) by mouth daily Nancy ortega Cyanocobala min (VIT B12) 1000 MCG/ML injection Solution 02-17 00:00: 00 Yes [id number] 1000ug Inject 1,000 mcg as directed once a month Nancy ortega Atorvastati n Calcium (Lipitor) 10 MG oral Tablet 02-17 00:00: 00 Yes [id number] 3 10mg Take 1 tablet (10 mg total) by mouth daily Nancy ortega Acetaminoph en-Codeine 300-30 MG oral Tablet 02-17 00:00: 00 Yes [id number] 1{tbl} Q.5D Take 1 tablet by mouth 2 times daily as needed for pain Nancy ortega Multiple Vitamins-Ir on (Multivitam in Plus Iron Adult) oral Tablet 01-09 00:00: 00 Yes [id number] 1{tbl} Take 1 tablet by mouth daily Nancy ortega Insulin Aspart Prot & Aspart (70-30) 100 UNIT/ML SC SUPN 01-04 07:56: 51 Yes 25U Inject 25 units into the skin nightly Nancy ortega Cholecalcif rico (Vitamin D) 25 MCG (1000 UT) oral Tablet 01-04 07:56: 51 Yes 25U Take 25 units by mouth daily Nancy ortega Losartan Potassium (COZAAR) 100 MG oral Tablet 01-04 00:00: 00 Yes [id number] 100mg Take 1 tablet (100 mg total) by mouth daily Nancy ortega Gabapentin 300 MG oral Capsule 01-04 00:00: 00 Yes [id number] 900mg Take 3 capsules (900 mg total) by mouth 3 times daily Nancy ortega Atorvastati n Calcium (Lipitor) 10 MG oral Tablet 01-04 00:00: 00 Yes [id number] 3 10mg Take 1 tablet (10 mg total) by mouth daily Nancy ortega Quetiapine Fumarate 100 MG oral Tablet 01-04 00:00: 00 Yes [id number] 100mg QD Take 1 tablet (100 mg total) by mouth nightly as needed Nancy ortega Acetaminoph en-Codeine 300-30 MG oral Tablet 01-04 00:00: 00 Yes [id number] 1{tbl} Q.5D Take 1 tablet by mouth 2 times daily as needed for pain Nancy ortega Sertraline HCl 25 MG oral Tablet 01-04 00:00: 00 Yes [id number] 25mg Take 1 tablet (25 mg total) by mouth daily Nancy ortega Cholecalcif rico (Vitamin D) 25 MCG (1000 UT) oral Tablet 11-30 10:56: 17 Yes 25U Take 25 units by mouth daily Nancy ortega Insulin Aspart Prot & Aspart (70-30) 100 UNIT/ML SC SUPN 11-30 10:55: 22 Yes 25U Inject 25 units into the skin nightly Nancy ortega Acetaminoph en-Codeine 300-30 MG oral Tablet 11-30 00:00: 00 Yes [id number] 1{tbl} Q.5D Take 1 tablet by mouth 2 times daily as needed for pain Nancy ortega Losartan Potassium (COZAAR) 100 MG oral Tablet 11-30 00:00: 00 Yes [id number] 100mg Take 1 tablet (100 mg total) by mouth daily Nancy ortega Gabapentin 300 MG oral Capsule 11-30 00:00: 00 Yes [id number] 900mg Take 3 capsules (900 mg total) by mouth 3 times daily Nancy ortega Quetiapine Fumarate 100 MG oral Tablet 11-30 00:00: 00 Yes [id number] 100mg QD Take 1 tablet (100 mg total) by mouth nightly as needed Nancy ortega Tirzepatide (Mounjaro) 10 MG/0.5ML subcutaneou s Solution Pen-injecto r 11-30 00:00: 00 Yes [id number] 10mg Inject 0.5 mL (10 mg total) into the skin once a week Nancy ortega Cyanocobala min (VIT B12) 1000 MCG/ML injection Solution 11-30 00:00: 00 02-17 00:00 :00 No [id number] 1000ug Inject 1,000 mcg as directed once a month Nancy ortega Tirzepatide (Mounjaro) 7.5 MG/0.5ML subcutaneou s Solution Pen-injecto r 11-22 00:00: 00 11-30 00:00 :00 No [id number] 3 7.5mg Inject 0.5 mL (7.5 mg total) into the skin once a week Nancy ortega Quetiapine Fumarate 100 MG oral Tablet 11-04 00:00: 00 11-30 00:00 :00 No [id number] TAKE ONE (1) TABLET(S) BY MOUTH NIGHTLY. Nancy ortega Atorvastati n Calcium (Lipitor) 10 MG oral Tablet 10-06 00:00: 00 01-04 00:00 :00 No [id number] 3 10mg Take 1 tablet (10 mg total) by mouth daily Nancy ortega Vitamin D, Ergocalcife rol, 1.25 MG (06835 UT) oral Capsule 10-06 00:00: 00 11-30 00:00 :00 No [id number] 45173S Take 1 capsule (50,000 units total) by mouth once a week Nancy ortega Gabapentin 300 MG oral Capsule 10-01 14:44: 25 10-01 00:00 :00 No 300mg Take 300 mg by mouth 3 times daily Nancy ortega Losartan Potassium (COZAAR) 100 MG oral Tablet 10-01 14:44: 25 10-01 00:00 :00 No 100mg Take 100 mg by mouth daily Nancy ortega Metformin HCl 500 MG oral Tablet 10-01 14:44: 25 10-01 00:00 :00 No 500mg Take 500 mg by mouth in the morning and 500 mg in the evening. Take with meals. Nancy ortega Quetiapine Fumarate 200 MG oral Tablet 10-01 14:44: 25 10-01 00:00 :00 No Take by mouth Nancy ortega Tirzepatide 5 MG/0.5ML subcutaneou s Solution Pen-injecto r 10-01 14:24: 42 10-01 00:00 :00 No 5mg Inject 5 mg into the skin once a week Nancy ortega Cyanocobala min (Vitamin B-12) 500 MCG sublingual SL Tab 10-01 14:02: 50 10-01 00:00 :[address] under the tongue Nancy ortega Quetiapine Fumarate 100 MG oral Tablet 10-01 00:00: 00 Yes [id number] 100mg Take 1 tablet (100 mg total) by mouth nightly Nancy ortega Tirzepatide (Mounjaro) 7.5 MG/0.5ML subcutaneou s Solution Pen-injecto r 10-01 00:00: 00 Yes [id number] 7.5mg Inject 0.5 mL (7.5 mg total) into the skin once a week Nancy ortega Metformin HCl 500 MG oral Tablet 10-01 00:00: 00 Yes [id number] 500mg Take 1 tablet (500 mg total) by mouth in the morning and 1 tablet (500 mg total) in the evening. Take with meals. Nancy ortega Cyanocobala min (VIT B12) 1000 MCG/ML injection Solution 10-01 00:00: 00 Yes [id number] 1000ug Inject 1,000 mcg as directed once a month Nancy orteag Losartan Potassium (COZAAR) 100 MG oral Tablet 10-01 00:00: 00 Yes [id number] 100mg Take 1 tablet (100 mg total) by mouth daily Nancy ortega Gabapentin 300 MG oral Capsule 10-01 00:00: 00 Yes [id number] 900mg Take 3 capsules (900 mg total) by mouth 3 times daily Nancy ortega Acetaminoph en-Codeine 300-30 MG oral Tablet 10-01 00:00: 00 Yes [id number] 1{tbl} Q.5D Take 1 tablet by mouth 2 times daily as needed for pain Nancy ortega Cyanocobala min (VIT B12) 1000 MCG/ML injection Solution 09-24 00:00: 00 10-01 00:00 :00 No INJECT ONE (1) ML(S) INTO THE MUSCLE ONCE A MONTH. Nancy ortega Vital Signs Vital Name Observation Time Observation Value Comments S ource Systolic blood pressure 2023-02-17 18:38:00 130 mm[Hg] Nancyhaley Cejao ld - External Diastolic blood pressure 2023-02-17 18:38:00 74 mm[Hg] Nancyhaley Cejao ld - External Heart rate 2023-02-17 18:38:00 75 /min Kelse y Parth - External Body temperature 2023-02-17 18:38:00 36.22 Vale Nancy Parth - External Respiratory rate 2023-02-17 18:38:00 15 /min Nancyhaley Alba - External Body height 2023-02-17 18:38:00 170.2 cm Radha steff Nguyenybold - External Body weight 2023-02-17 18:38:00 102.513 kg Radha steff Nguyenybold - External BMI 2023-02-17 18:38:00 35.40 kg/m2 Radha ey Seybold - External Systolic blood pressure 2023-01-04 12:55:00 143 mm[Hg] Nancyhaley Cejao ld - External Diastolic blood pressure 2023-01-04 12:55:00 85 mm[Hg] Nancy Seybo ld - External Heart rate 2023-01-04 12:55:00 79 /min Kelse y Sejoeyold - External Body temperature 2023-01-04 12:55:00 36.56 Vale Nancy Seybold - External Respiratory rate 2023-01-04 12:55:00 16 /min Nancy Seybold - External Body height 2023-01-04 12:55:00 170.2 cm Radha ey Seybold - External Body weight 2023-01-04 12:55:00 102.059 kg Radha ey Seybold - External BMI 2023-01-04 12:55:00 35.24 kg/m2 Radha ey Seybold - External Oxygen saturation in Arterial blood by Pulse oximetry 2023-01-04 12:55:00 97 /min Nancy Seybo ld - External Systolic blood pressure 2022-11-30 15:34:00 137 mm[Hg] Nancy Seybo ld - External Diastolic blood pressure 2022-11-30 15:34:00 83 mm[Hg] Nancy Seybo ld - External Heart rate 2022-11-30 15:34:00 70 /min Kelse y Seybold - External Body temperature 2022-11-30 15:34:00 36.5 Vale Nancy Seybold - External Respiratory rate 2022-11-30 15:34:00 18 /min Nancy Seybold - External Body height 2022-11-30 15:34:00 170.2 cm Radha ey Seybold - External Body weight 2022-11-30 15:34:00 107.956 kg Radha ey Seybold - External BMI 2022-11-30 15:34:00 37.28 kg/m2 Radha ey Seybold - External Oxygen saturation in Arterial blood by Pulse oximetry 2022-11-30 15:34:00 98 /min Nancy Seybo ld - External Systolic blood pressure 2022-10-01 19:54:00 148 mm[Hg] Nancy Seybo ld - External Diastolic blood pressure 2022-10-01 19:54:00 82 mm[Hg] Nancy Seybo ld - External Heart rate 2022-10-01 19:54:00 99 /min Kelse y Seybold - External Body temperature 2022-10-01 19:54:00 36.5 Vale Nancy Seybold - External Respiratory rate 2022-10-01 19:54:00 15 /min Nancy Seybold - External Body height 2022-10-01 19:54:00 170.2 cm Radha ey Seybold - External Body weight 2022-10-01 19:54:00 105.688 kg Radha ey Seybold - External BMI 2022-10-01 19:54:00 36.49 kg/m2 Radha ey Seybold - External Procedures Procedure Date / Time Performed Performing Clinicia n Source DRAINAGE OF R PLEURAL CAV WITH DRAIN DEV, PERC JOSE ANGEL 2024-11-19 00:00:00 SHEAL01 [facility] DRAINAGE OF L PLEURAL CAV WITH DRAIN DEV, PERC JOSE ANGEL 2024-11-19 00:00:00 SHEAL01 [facility] BYPASS 1 COR ART FROM L INT MAMMARY, OPEN APPROACH 2024-11-09 00:00:00 CHAAB.01 [facility] BYPASS 4+ COR ART FROM AORTA WITH AUTOL VN, OPEN A 2024-11-09 00:00:00 CHAAB.01 [facility] EXCISION OF RIGHT SAPHENOUS VEIN, [facility] ENDO APPROA 2024-11-09 00:00:00 CHAAB.01 [facility] EXCISION OF LEFT SAPHENOUS VEIN, [facility] ENDO APPROAC 2024-11-09 00:00:00 CHAAB.01 [facility] EXCISION OF LEFT ATRIAL APPENDAGE, OPEN APPROACH 2024-11-09 00:00:00 CHAAB.01 [facility] PERFORMANCE OF CARDIAC OUTPUT, CONTINUOUS 2024-11-09 00:00:00 CHAAB.01 [facility] INSERTION OF INFUSION DEVICE INTO UPPER VEIN, PERC 2024-11-09 00:00:00 RAMED [facility] INSERTION OF MONITORING DEVICE INTO UP ART, PERC A 2024-11-09 00:00:00 RAMED [facility] MONITORING OF ARTERIAL PRESSURE, PERIPHERAL, PERC 2024-11-09 00:00[facility] MONITORING OF ARTERIAL PULSE, PERIPHERAL, [facility] JOSE ANGEL 2024-11-09 00:00:00 [facility] Encounters Start Date/Time End Date/Time Encounter Type Admission Type Attending [facility] Care Facility Care Department Encounter ID Source 2024-11-08 01:59:00 2024-11-21 11:00:00 Inpatient Flynn Gold [facility] INTE.02 [id number] [facility] 2023-06-21 00:00:00 2023-06-21 00:00:00 Outpatient PREZAREMBERTO Bridges NANCY BENITEZ [id number] Nancy Alba 2023-04-07 08:15:00 2023-04-07 08:15:00 Outpatient PREZASDIMPLEREMBERTOSUSHMA BENITEZ [id number] [facility]23-03-21 10:19:58 2023-03-21 10:19:58 Outpatient SFA SFA [id number] Luis F Garcia 2023-03-17 10:15:00 2023-03-17 10:15:00 Outpatient PREZAS, REMBERTO NANCY BENITEZ [id number] [facility] 2023-03-01 08:45:00 2023-03-01 08:45:00 Outpatient PREZAS, REMBERTOSUSHMA BENITEZ [id number] Nancy [facility] 2023-03-01 00:00:00 2023-03-01 00:00:00 Outpatient PREZAS, REMBERTO NANCY BENITEZ [id number] [facility] 2023-02-17 14:45:00 2023-02-17 14:45:00 Outpatient LAB90 NANCY BENITEZ [id number] Nancy [facility] 2023-02-17 14:00:00 2023-02-17 14:00:00 [facility]EL[facility]ILSON [id number] [facility] 2023-02-15 00:00:00 2023-02-15 00:00:00 Outpatient PREZAS REMBERTO NANCY BENITEZ [id number] [facility] 2023-01-09 00:00:00 2023-01-09 00:00:00 Outpatient PREZAS REMBERTO BENITEZ [id number] Nancy [facility] 2023-01-07 08:00:00 2023-01-07 08:00:00 Outpatient LAB90 NANCY BENITEZ [id number] Nancy [facility] 2023-01-07 00:00:00 2023-01-07 00:00:00 Outpatient PREZAS, REMBERTO BENITEZ [id number] [facility] 2023-01-07 00:00:00 2023-01-07 00:00:00 Outpatient IZLAVELLE ADAN [facility]ANCY [id number] [facility] 2023-01-04 08:30:00 2023-01-04 08:30:00 Outpatient LAB90 NANCY NANCY [id number] [facility]23-[facility]-04 08:00:00 2023-01-04 08:00:00 Outpatient PREZAS, REMBERTO BENITEZ NANCY [id number] [facility] 2022-12-10 00:00:00 2022-12-10 00:00:00 Outpatient PREZAS, REMBERTO NANCY BENITEZ [id number] [facility] 2022-11-30 11:30:00 2022-11-30 11:30:00 Outpatient LAB90 NANCY NANCY [id number] [facility] 2022-11-30 10:45:00 2022-11-30 10:45:00 Outpatient PREZAS, REMBERTO BENITEZ NANCY [id number] [facility] 2022-11-25 00:00:00 2022-11-25 00:00:00 Outpatient PREZAS, REMBERTO NANCY BENITEZ [id number] [facility] 2022-11-22 00:00:00 2022-11-22 00:00:00 Outpatient PREZAS, REMBERTO NANCY BENITEZ [id number] [facility] 2022-11-22 00:00:00 2022-11-22 00:00:00 Outpatient PREZAS, REMBERTO NANCY BENITEZ [id number] [facility] 2022-11-20 00:00:00 2022-11-20 00:00:00 Outpatient PREZAS, REMBERTO NANCY BENITEZ [id number] [facility] 2022-11-05 00:00:00 2022-11-05 00:00:00 Outpatient PREZAS, REMBERTO BENITEZ [id number] [facility] 2022-11-04 00:00:00 2022-11-04 00:00:00 Outpatient PREZAS, REMBERTO BENITEZ [id number] Nancy Alba 2022-10-29 15:30:00 2022-10-29 15:30:00 Outpatient PREREMBERTO NOBLE NANCY [id number] Nancy Alba 2022-10-19 00:00:00 2022-10-19 00:00:00 Outpatient PREZAS, REMBERTO BENITEZ NANCY [id number] Nancy Alba 2022-10-13 00:00:00 2022-10-13 00:00:00 Outpatient PREZAS, REMBERTO BENITEZ NANCY [id number] Nancy Alba 2022-10-11 00:00:00 2022-10-11 00:00:00 Outpatient PREZAS, REMBERTO NANCY BENITEZ [id number] Nancy Alba 2022-10-06 00:00:00 2022-10-06 00:00:00 Outpatient PREZASREMBERTO NANCY BENITEZ [id number] Nancy Alba 2022-10-06 00:00:00 2022-10-06 00:00:00 Outpatient PREZASREMBERTO NANCY [id number] Nancy Alba 2022-10-05 08:20:00 2022-10-05 08:20:00 Outpatient LAB90 NANCY BENITEZ [id number] Nancy Alba 2022-10-04 00:00:00 2022-10-04 00:00:00 Outpatient EVERARDO PAN NANCY BENITEZ [id number] Nancy Alba 2022-10-01 15:00:00 2022-10-01 15:00:00 Outpatient LAB90 NANCY BENITEZ [id number] Nancy Nguyenybaam 2022-10-01 14:15:00 2022-10-01 14:15:00 Outpatient PREREMBERTO NOBLE NANCY BENITEZ [id number] [facility] Results Test Description Test Time Test Comments Results Result Co mments Source GLUCOSE [id number] 21:30:00* Test Item Value Reference Range Interpretation Comme nts GLUCOSE BEDSIDE (test code = GLUBED) 135 MG/DL 70-110 H Performed by cer tified power plant operators supervisor at [facility] GLUCOSE [id number] 17:28:00* Test Item Value Reference Range Interpretation Comme nts GLUCOSE BEDSIDE (test code = GLUBED) 177 MG/DL 70-110 H Performed by cer tified power plant operators supervisor at [facility] GLUCOSE [id number] 12:41:00* Test Item Value Reference Range Interpretation Comme nts GLUCOSE BEDSIDE (test code = GLUBED) 221 MG/DL 70-110 H Performed by cer tified power plant operators supervisor at [facility] GLUCOSE [id number] 08:54:00* Test Item Value Reference Range Interpretation Comme nts GLUCOSE BEDSIDE (test code = GLUBED) 173 MG/DL 70-110 H Performed by cer tified power plant operators supervisor at [facility] UNFRACT HEPARIN DEPEND PLT [id number] 07:53:00* Test Item Value Reference Range Interpretation Comme nts UNFRACT HEPARIN LOW DOSE (test code = UHDPABL) <1 % 0-20 UNFRACT HEPARIN HIGH DOSE (test code = UHDPABH) 3 % 0-20 UNFRACT HEPARIN RESULT (test code = UHDPABT) Comment See_Comment RACHELLE Result: NEGATIVECOMMENT: While these results argue against a diagnosis cgubxklpj-ulilaqo-mfgnirhfx topenia (HIT), they do notcompletely exclude the diagnosis. The result should beinterpreted in conjunction with other HIT assays, and thecontext of all the clinical information including theplatelet count, the type of heparin administered, theduration of heparin exposure, previous heparin exposure andany thrombotic history. The assay measures serotoninrelease from donor platelets in the presence of patient'sserum and heparin. A positive result requires greater thanor equal to 20% release in the presence of low dose (0.2IU/mL) heparin and inhibition of serotonin releasein the presence of high dose (100 IU/mL) heparin.Performed At: [address] [id number] Armstrong MD Ph:[phone] [Automated message] The system which generated this result transmitted reference range: (). The reference range was not used to interpret this result as normal/abnormal. SHORT SAMPLE.GLUCOSE [id number] 03:35:00* Test Item Value Reference Range Interpretation Comme [facility] GLUCOSE BEDSIDE (test code = GLUBED) 200 MG/DL 70-110 H Performed by cer tified power plant operators supervisor at [facility] GLUCOSE [id number] 16:34:00* Test Item Value Reference Range Interpretation Comme nts GLUCOSE BEDSIDE (test code = GLUBED) 172 MG/DL 70-110 H Performed by cer tified power plant operators supervisor at [facility] GLUCOSE [id number] 12:51:00* Test Item Value Reference Range Interpretation Comme nts GLUCOSE BEDSIDE (test code = GLUBED) 193 MG/DL 70-110 H Performed by cer tified power plant operators supervisor at [facility] GLUCOSE [id number] 08:36:00* Test Item Value Reference Range Interpretation Comme nts GLUCOSE BEDSIDE (test code = GLUBED) 174 MG/DL 70-110 H Performed by cer tified power plant operators supervisor at [facility] GLUCOSE [id number] 19:50:00* Test Item Value Reference Range Interpretation Comme nts GLUCOSE BEDSIDE (test code = GLUBED) 104 MG/DL 70-110 N Performed by cer tified power plant operators supervisor at [facility] GLUCOSE [id number] 17:28:00* Test Item Value Reference Range Interpretation Comme nts GLUCOSE BEDSIDE (test code = GLUBED) 181 MG/DL 70-110 H Performed by cer tified power plant operators supervisor at [facility] GLUCOSE [id number] 13:21:00* Test Item Value Reference Range Interpretation Comme nts GLUCOSE BEDSIDE (test code = GLUBED) 197 MG/DL 70-110 H Performed by cer tified power plant operators supervisor at [facility] GLUCOSE [id number] 09:09:00* Test Item Value Reference Range Interpretation Comme nts GLUCOSE BEDSIDE (test code = GLUBED) 106 MG/DL 70-110 N Performed by cer tified power plant operators supervisor at [facility] BASIC METABOLIC [id number] 03:49:00* Test Item Value Reference Range Interpretation Comme nts SODIUM (test code = NA) 141 mEq/L 134-147 N POTASSIUM (test code = K) 4.2 mEq/L 3.4-5.0 N CHLORIDE (test code = CL) 105 mEq/L 100-108 N CARBON DIOXIDE (test code = CO2) 32 mEq/l 21-33 N ANION GAP (test code = GAP) 9 0-20 N GLUCOSE (test code = GLU) 106 mg/dL 77-141 BLOOD UREA NITROGEN (test code = BUN) 15 mg/dL 7-25 N GLOMERULAR FILTRATION RATE (test code = GFR) 107.9 90-95 H The Glomerular Filtration Rate is a calculated parameterbased on serum Creatinine, patient age and sex. GFR valuesless than 60 mL/min/1.73 square meters are indicative ofChronic Kidney Disease. Values less than 15 mL/min/1.73square meters indicate Kidney failure. The calculation forGFR is based on the CKD-EPI (202) calculation. This formulais race indifferent and is the recommended formula for GFRby the National Kidney Foundation for Adults.The GFR will not calculate if the sex is unknown or if thepatient's age is <18 years. CREATININE (test code = CREAT) 0.6 mg/dL 0.6-1.3 N CALCIUM (test code = CA) 8.6 mg/dL 8.0-10.5 N [id number] 03:49:00* Test Item Value Reference Range Interpretation Comme nts MAGNESIUM (test code = MAG) 1.90 mg/dL 1.6-2.6 N CBC W/AUTO [id number] 03:31:00* Test Item Value Reference Range Interpretation Comme nts WHITE BLOOD CELL (test code = WBC) 5.2 x10 3/uL 4.5-11.0 N RED BLOOD CELL (test code = RBC) 3.14 x10 6/uL 3.54-5.02 L HEMOGLOBIN (test code = HGB) 7.8 g/dL 11.0-15.0 L HEMATOCRIT (test code = HCT) 26.4 % 33.0-45.0 L MEAN CELL VOLUME (test code = MCV) 84.1 fL 81.0-99.0 N MEAN CELL HGB (test code = MCH) 24.8 pg 27.0-33.0 L MEAN CELL HGB CONCETRATION (test code = MCHC) 29.5 g/dL 33.0-37.0 L RED CELL DISTRIBUTION WIDTH CV (test code = RDW) 17.2 % 11.5-14.5 H RED CELL DISTRIBUTION WIDTH SD (test code = RDW-SD) 51.8 fL 37.0-54.0 N PLATELET COUNT (test code = PLT) 133 x10 3/uL 150-400 L MEAN PLATELET VOLUME (test c ode = MPV) 11.2 fL 7.0-9.0 H NEUTROPHIL % (test code = NT%) 61.9 % 56.0-77.0 N IMMATURE GRANULOCYTE % (test code = IG%) 0.8 % 0.0-2.0 N LYMPHOCYTE % (test code = LY%) 20.2 % 14.0-32.0 N MONOCYTE % (test code = MO%) 11.7 % 4.8-9.0 H EOSINOPHIL % (test code = EO%) 4.6 % 0.3-3.7 H BASOPHIL % (test code = BA%) 0.8 % 0.0-2.0 N NUCLEATED RBC % (test code = NRBC%) 0.0 % 0-0 N NEUTROPHIL # (test code = NT#) 3.22 x10 3/uL 2.0-7.6 N IMMATURE GRANULOCYTE # (test code = IG#) 0.04 x10 3/uL 0.00-0.03 H LYMPHOCYTE # (test code = LY#) 1.05 x10 3/uL 1.0-3.8 N MONOCYTE # (test code = MO#) 0.61 x10 3/uL 0.1-0.8 N EOSINOPHIL # (test code = EO#) 0.24 x10 3/uL 0.0-0.2 H BASOPHIL # (test code = BA#) 0.04 x10 3/uL 0.0-0.2 N NUCLEATED RBC # (test code = NRBC#) 0.00 x10 3/uL 0.0-0.1 N GLUCOSE [id number] 20:44:00* Test Item Value Reference Range Interpretation Comme nts GLUCOSE BEDSIDE (test code = GLUBED) 123 MG/DL 70-110 H Performed by cer tified power plant operators supervisor at [facility] GLUCOSE [id number] 17:34:00* Test Item Value Reference Range Interpretation Comme nts GLUCOSE BEDSIDE (test code = GLUBED) 171 MG/DL 70-110 H Performed by cer tified power plant operators supervisor at [facility] GLUCOSE [id number] 12:46:00* Test Item Value Reference Range Interpretation Comme nts GLUCOSE BEDSIDE (test code = GLUBED) 148 MG/DL 70-110 H Performed by cer tified power plant operators supervisor at [facility] GLUCOSE [id number] 07:33:00* Test Item Value Reference Range Interpretation Comme nts GLUCOSE BEDSIDE (test code = GLUBED) 153 MG/DL 70-110 H Performed by cer tified power plant operators supervisor at [facility] GLUCOSE [id number] 07:33:00* Test Item Value Reference Range Interpretation Comme nts GLUCOSE BEDSIDE (test code = GLUBED) 133 MG/DL 70-110 H Performed by cer tified power plant operators supervisor at [facility] BASIC METABOLIC [id number] 05:53:00* Test Item Value Reference Range Interpretation Comme nts SODIUM (test code = NA) 139 mEq/L 134-147 N POTASSIUM (test code = K) 4.4 mEq/L 3.4-5.0 N CHLORIDE (test code = CL) 104 mEq/L 100-108 N CARBON DIOXIDE (test code = CO2) 29 mEq/l 21-33 N ANION GAP (test code = GAP) 10 0-20 N GLUCOSE (test code = GLU) 175 mg/dL 77-141 H BLOOD UREA NITROGEN (test code = BUN) 14 mg/dL 7-25 N GLOMERULAR FILTRATION RATE (test code = GFR) 104.0 90-95 H The Glomerular Filtration Rate is a calculated parameterbased on serum Creatinine, patient age and sex. GFR valuesless than 60 mL/min/1.73 square meters are indicative ofChronic Kidney Disease. Values less than 15 mL/min/1.73square meters indicate Kidney failure. The calculation forGFR is based on the CKD-EPI (2020) calculation. This formulais race indifferent and is the recommended formula for GFRby the National Kidney Foundation for Adults.The GFR will not calculate if the sex is unknown or if thepatient's age is <18 years. CREATININE (test code = CREAT) 0.7 mg/dL 0.6-1.3 N CALCIUM (test code = CA) 8.4 mg/dL 8.0-10.5 N [id number] 05:53:00* Test Item Value Reference Range Interpretation Comme nts MAGNESIUM (test code = MAG) 1.92 mg/dL 1.6-2.6 N CBC W/AUTO [id number] 05:35:00* Test Item Value Reference Range Interpretation Comme nts WHITE BLOOD CELL (test code = WBC) 6.4 x10 3/uL 4.5-11.0 N RED BLOOD CELL (test code = RBC) 3.17 x10 6/uL 3.54-5.02 L HEMOGLOBIN (test code = HGB) 7.8 g/dL 11.0-15.0 L HEMATOCRIT (test code = HCT) 26.0 % 33.0-45.0 L MEAN CELL VOLUME (test code = MCV) 82.0 fL 81.0-99.0 N MEAN CELL HGB (test code = MCH) 24.6 pg 27.0-33.0 L MEAN CELL HGB CONCETRATION (test code = MCHC) 30.0 g/dL 33.0-37.0 L RED CELL DISTRIBUTION WIDTH CV (test code = RDW) 16.7 % 11.5-14.5 H RED CELL DISTRIBUTION WIDTH SD (test code = RDW-SD) 49.9 fL 37.0-54.0 N PLATELET COUNT (test code = PLT) 138 x10 3/uL 150-400 L MEAN PLATELET VOLUME (test c ode = MPV) 12.1 fL 7.0-9.0 H NEUTROPHIL % (test code = NT%) 67.2 % 56.0-77.0 N IMMATURE GRANULOCYTE % (test code = IG%) 0.6 % 0.0-2.0 N LYMPHOCYTE % (test code = LY%) 16.5 % 14.0-32.0 N MONOCYTE % (test code = MO%) 10.5 % 4.8-9.0 H EOSINOPHIL % (test code = EO%) 4.6 % 0.3-3.7 H BASOPHIL % (test code = BA%) 0.6 % 0.0-2.0 N NUCLEATED RBC % (test code = NRBC%) 0.0 % 0-0 N NEUTROPHIL # (test code = NT#) 4.28 x10 3/uL 2.0-7.6 N IMMATURE GRANULOCYTE # (test code = IG#) 0.04 x10 3/uL 0.00-0.03 H LYMPHOCYTE # (test code = LY#) 1.05 x10 3/uL 1.0-3.8 N MONOCYTE # (test code = MO#) 0.67 x10 3/uL 0.1-0.8 N EOSINOPHIL # (test code = EO#) 0.29 x10 3/uL 0.0-0.2 H BASOPHIL # (test code = BA#) 0.04 x10 3/uL 0.0-0.2 N NUCLEATED RBC # (test code = NRBC#) 0.00 x10 3/uL 0.0-0.1 N GLUCOSE [id number] 16:43:00* Test Item Value Reference Range Interpretation Comme nts GLUCOSE BEDSIDE (test code = GLUBED) 211 MG/DL 70-110 H Performed by cer tified power plant operators supervisor at [facility] GLUCOSE [id number] 11:58:00* Test Item Value Reference Range Interpretation Comme nts GLUCOSE BEDSIDE (test code = GLUBED) 197 MG/DL 70-110 H Performed by cer tified power plant operators supervisor at [facility] GLUCOSE [id number] 08:12:00* Test Item Value Reference Range Interpretation Comme nts GLUCOSE BEDSIDE (test code = GLUBED) 139 MG/DL 70-110 H Performed by [facility] tified power plant operators supervisor at [facility] BASIC METABOLIC [id number] 06:27:00* Test Item Value Reference Range Interpretation Comme nts SODIUM (test code = NA) 139 mEq/L 134-147 N POTASSIUM (test code = K) 4.6 mEq/L 3.4-5.0 N CHLORIDE (test code = CL) 106 mEq/L 100-108 N CARBON DIOXIDE (test code = CO2) 30 mEq/l 21-33 N ANION GAP (test code = GAP) 8 0-20 N GLUCOSE (test code = GLU) 145 mg/dL 77-141 H BLOOD UREA NITROGEN (test code = BUN) 12 mg/dL 7-25 N GLOMERULAR FILTRATION RATE (test code = GFR) 104.0 90-95 H The Glomerular Filtration Rate is a calculated parameterbased on serum Creatinine, patient age and sex. GFR valuesless than 60 mL/min/1.73 square meters are indicative ofChronic Kidney Disease. Values less than 15 mL/min/1.73square meters indicate Kidney failure. The calculation forGFR is based on the CKD-EPI (202) calculation. This formulais race indifferent and is the recommended formula for GFRby the National Kidney Foundation for Adults.The GFR will not calculate if the sex is unknown or if thepatient's age is <18 years. CREATININE (test code = CREAT) 0.7 mg/dL 0.6-1.3 N CALCIUM (test code = CA) 8.7 mg/dL 8.0-10.5 N [id number] 06:27:00* Test Item Value Reference Range Interpretation Comme nts MAGNESIUM (test code = MAG) 1.98 mg/dL 1.6-2.6 N CBC W/AUTO [id number] 06:05:00* Test Item Value Reference Range Interpretation Comme nts WHITE BLOOD CELL (test code = WBC) 5.0 x10 3/uL 4.5-11.0 N RED BLOOD CELL (test code = RBC) 3.42 x10 6/uL 3.54-5.02 L HEMOGLOBIN (test code = HGB) 8.6 g/dL 11.0-15.0 L HEMATOCRIT (test code = HCT) 28.7 % 33.0-45.0 L MEAN CELL VOLUME (test code = MCV) 83.9 fL 81.0-99.0 N MEAN CELL HGB (test code = MCH) 25.1 pg 27.0-33.0 L MEAN CELL HGB CONCETRATION (test code = MCHC) 30.0 g/dL 33.0-37.0 L RED CELL DISTRIBUTION WIDTH CV (test code = RDW) 16.8 % 11.5-14.5 H RED CELL DISTRIBUTION WIDTH SD (test code = RDW-SD) 51.8 fL 37.0-54.0 N PLATELET COUNT (test code = PLT) 118 x10 3/uL 150-400 L MEAN PLATELET VOLUME (test c ode = MPV) 11.9 fL 7.0-9.0 H NEUTROPHIL % (test code = NT%) 61.7 % 56.0-77.0 N IMMATURE GRANULOCYTE % (test code = IG%) 0.4 % 0.0-2.0 N LYMPHOCYTE % (test code = LY%) 22.2 % 14.0-32.0 N MONOCYTE % (test code = MO%) 11.3 % 4.8-9.0 H EOSINOPHIL % (test code = EO%) 3.8 % 0.3-3.7 H BASOPHIL % (test code = BA%) 0.6 % 0.0-2.0 N NUCLEATED RBC % (test code = NRBC%) 0.0 % 0-0 N NEUTROPHIL # (test code = NT#) 3.05 x10 3/uL 2.0-7.6 N IMMATURE GRANULOCYTE # (test code = IG#) 0.02 x10 3/uL 0.00-0.03 N LYMPHOCYTE # (test code = LY#) 1.10 x10 3/uL 1.0-3.8 N MONOCYTE # (test code = MO#) 0.56 x10 3/uL 0.1-0.8 N EOSINOPHIL # (test code = EO#) 0.19 x10 3/uL 0.0-0.2 N BASOPHIL # (test code = BA#) 0.03 x10 3/uL 0.0-0.2 N NUCLEATED RBC # (test code = NRBC#) 0.00 x10 3/uL 0.0-0.1 N GLUCOSE [id number] 21:17:00* Test Item Value Reference Range Interpretation Comme nts GLUCOSE BEDSIDE (test code = GLUBED) 206 MG/DL 70-110 H Performed by [employer] power plant operators supervisor at [facility] GLUCOSE [id number] 17:02:00* Test Item Value Reference Range Interpretation Comme nts GLUCOSE BEDSIDE (test code = GLUBED) 256 MG/DL 70-110 H Performed by [employer] power plant operators supervisor at [facility] GLUCOSE [id number] 11:36:00* Test Item Value Reference Range Interpretation Comme nts GLUCOSE BEDSIDE (test code = GLUBED) 209 MG/DL 70-110 H Performed by [employer] power plant operators supervisor at [facility] GLUCOSE [id number] 10:54:00* Test Item Value Reference Range Interpretation Comme nts GLUCOSE BEDSIDE (test code = GLUBED) 211 MG/DL 70-110 H Performed by [employer] power plant operators supervisor at [facility] BASIC METABOLIC [id number] 07:41:00* Test Item Value Reference Range Interpretation Comme nts SODIUM (test code = NA) 139 mEq/L 134-147 N POTASSIUM (test code = K) 4.2 mEq/L 3.4-5.0 N CHLORIDE (test code = CL) 104 mEq/L 100-108 N CARBON DIOXIDE (test code = CO2) 28 mEq/l 21-33 N ANION GAP (test code = GAP) 11 0-20 N GLUCOSE (test code = GLU) 229 mg/dL 77-141 H BLOOD UREA NITROGEN (test code = BUN) 12 mg/dL 7-25 N GLOMERULAR FILTRATION RATE (test code = GFR) 104.0 90-95 H The Glomerular Filtration Rate is a calculated parameterbased on serum Creatinine, patient age and sex. GFR valuesless than 60 mL/min/1.73 square meters are indicative ofChronic Kidney Disease. Values less than 15 mL/min/1.73square meters indicate Kidney failure. The calculation forGFR is based on the CKD-EPI (202) calculation. This formulais race indifferent and is the recommended formula for GFRby the National Kidney Foundation for Adults.The GFR will not calculate if the sex is unknown or if thepatient's age is <18 years. CREATININE (test code = CREAT) 0.7 mg/dL 0.6-1.3 N CALCIUM (test code = CA) 8.6 mg/dL 8.0-10.5 N [id number] 07:41:00* Test Item Value Reference Range Interpretation Comme nts MAGNESIUM (test code = MAG) 2.03 mg/dL 1.6-2.6 N CBC W/AUTO [id number] 06:43:00* Test Item Value Reference Range Interpretation Comme nts WHITE BLOOD CELL (test code = WBC) 4.7 x10 3/uL 4.5-11.0 N RED BLOOD CELL (test code = RBC) 3.39 x10 6/uL 3.54-5.02 L HEMOGLOBIN (test code = HGB) 8.6 g/dL 11.0-15.0 L HEMATOCRIT (test code = HCT) 28.3 % 33.0-45.0 L MEAN CELL VOLUME (test code = MCV) 83.5 fL 81.0-99.0 N MEAN CELL HGB (test code = MCH) 25.4 pg 27.0-33.0 L MEAN CELL HGB CONCETRATION (test code = MCHC) 30.4 g/dL 33.0-37.0 L RED CELL DISTRIBUTION WIDTH CV (test code = RDW) 16.7 % 11.5-14.5 H RED CELL DISTRIBUTION WIDTH SD (test code = RDW-SD) 51.0 fL 37.0-54.0 N PLATELET COUNT (test code = PLT) 103 x10 3/uL 150-400 L MEAN PLATELET VOLUME (test c ode = MPV) 12.1 fL 7.0-9.0 H NEUTROPHIL % (test code = NT%) 65.3 % 56.0-77.0 N IMMATURE GRANULOCYTE % (test code = IG%) 0.4 % 0.0-2.0 N LYMPHOCYTE % (test code = LY%) 17.8 % 14.0-32.0 N MONOCYTE % (test code = MO%) 11.6 % 4.8-9.0 H EOSINOPHIL % (test code = EO%) 4.3 % 0.3-3.7 H BASOPHIL % (test code = BA%) 0.6 % 0.0-2.0 N NUCLEATED RBC % (test code = NRBC%) 0.0 % 0-0 N NEUTROPHIL # (test code = NT#) 3.05 x10 3/uL 2.0-7.6 N IMMATURE GRANULOCYTE # (test code = IG#) 0.02 x10 3/uL 0.00-0.03 N LYMPHOCYTE # (test code = LY#) 0.83 x10 3/uL 1.0-3.8 L MONOCYTE # (test code = MO#) 0.54 x10 3/uL 0.1-0.8 N EOSINOPHIL # (test code = EO#) 0.20 x10 3/uL 0.0-0.2 N BASOPHIL # (test code = BA#) 0.03 x10 3/uL 0.0-0.2 N NUCLEATED RBC # (test code = NRBC#) 0.00 x10 3/uL 0.0-0.1 N GLUCOSE [id number] 21:22:00* Test Item Value Reference Range Interpretation Comme nts GLUCOSE BEDSIDE (test code = GLUBED) 143 MG/DL 70-110 H Performed by cer tified power plant operators supervisor at [facility] GLUCOSE [id number] 18:07:00* Test Item Value Reference Range Interpretation Comme nts GLUCOSE BEDSIDE (test code = GLUBED) 82 MG/DL 70-110 N Performed by cer tified power plant operators supervisor at [facility] GLUCOSE [id number] 13:16:00* Test Item Value Reference Range Interpretation Comme nts GLUCOSE BEDSIDE (test code = GLUBED) 295 MG/DL 70-110 H Performed by cer tified power plant operators supervisor at [facility] [id number] 11:58:00* Test Item Value Reference Range Interpretation Comments SURGICAL (test code = SR) RUN DATE: 11/14/24 [place] - LAB PAGE 1 RUN TIME: 1158 Specimen Inquiry RUN USER: INTERFACE PATIENT: YUNIER PRATT LOC: [facility] U #: [id number] AGE/SX: 54/F ROOM: [facility] RE11/08/24REG DR: Leyda Trotter MD : 72 BED: 1 DIS: STATUS: ADM IN TLOC: SPEC #: [id number] RECD: 11/12/24-947 STATUS: SOUT REQ #: [id number] PANCHO: 11/09/24- SUBM DR: Antoniette Ross MD ENTERED: 11/12/24-948 SP TYPE: SURGICAL OTHR DR: No Primary or Family Physician Self Referred Sharon Lindquist MD, Hannan H MD Hatmaker, Daniel C NP Howard, Lauren DO Rashid,Nito Smith,Dayanara López MD, MD [id number]: [id number], ANATOMIC SPEC COPIES TO: No Primary or Family Physician Self Referred Sharon Lindquist MD [address] [id number] Antoinette Ross MD [address] [place] [address] Alejandro Cabrera NP [address] [place] [address] Angela Aceves DO [address] [place] [address] [place] [address] [facility] ZEB [address] [id number] CONTINUED ON NEXT PAGE RUN DATE: 11/14/24 [place] - LAB PAGE 2 RUN TIME: 1158 Specimen Inquiry RUN USER: INTERFACE SPEC #: [id number] PATIENT: YUNIER PRATT #[id number] (Continued) - COPIES TO: (Continued) Jean Claude Smith MD [address] [place] [address] Dayanara Man MD R1 [address] [place] [id number] PROCEDURES: 99614 (11/12/24) TISSUES: A. ATRIUM - LEFT ATRIAL APPENDAGE CLINICAL HISTORY SAME FINAL DIAGNOSIS Heart, left atrial appendage, wedge biopsy: - Myocardium with focal mild ischemic change. GROSS DESCRIPTION Received in formalin labeled "left atrial appendage" is a kaur-red atrial appendagemeasuring up to 4.1 cm. The specimen is serially sectioned and no gross lesions areidentified. Rotor Pilot sections are submitted in cassette A. Technical component performed at [facility],[address] [place] [id number] Unless gross only, the diagnosis is based upon microscopic examination.Immunohistochemistry: This test was developed and its performance characteristicsdetermined by this laboratory. It has not been approved nor does it need approvalby the [place] FDA. Appropriate positive and negative controls are reviewed and judgedto be acceptable for performedimmunohistochemistry and/or special stains. This laboratoryis certified under the Clinical Laboratory Improvement Amendments (CLIA-88) as qualified toperform high complexity clinical laboratory testing. CLINICAL INFORMATION MULTIVESSEL DISEASE Signed SIGNATURE ON FILE Iman Long 11/14/24 1158 END OF REPORT BASIC METABOLIC [id number] 11:11:00* Test Item Value Reference Range Interpretation Comme nts SODIUM (test code = NA) 137 mEq/L 134-147 N POTASSIUM (test code = K) 3.8 mEq/L 3.4-5.0 N CHLORIDE (test code = CL) 104 mEq/L 100-108 N CARBON DIOXIDE (test code = CO2) 27 mEq/l 21-33 N ANION GAP (test code = GAP) 10 0-20 N GLUCOSE (test code = GLU) 260 mg/dL 77-141 H BLOOD UREA NITROGEN (test code = BUN) 11 mg/dL 7-25 N GLOMERULAR FILTRATION RATE (test code = GFR) 104.0 90-95 H The Glomerular Filtration Rate is a calculated parameterbased on serum Creatinine, patient age and sex. GFR valuesless than 60 mL/min/1.73 square meters are indicative ofChronic Kidney Disease. Values less than 15 mL/min/1.73square meters indicate Kidney failure. The calculation forGFR is based on the CKD-EPI (2020) calculation. This formulais race indifferent and is the recommended formula for GFRby the National Kidney Foundation for Adults.The GFR will not calculate if the sex is unknown or if thepatient's age is <18 years. CREATININE (test code = CREAT) 0.7 mg/dL 0.6-1.3 N CALCIUM (test code = CA) 8.7 mg/dL 8.0-10.5 N [id number] 11:11:00* Test Item Value Reference Range Interpretation Comme nts MAGNESIUM (test code = MAG) 1.99 mg/dL 1.6-2.6 N CBC W/AUTO [id number] 10:56:00* Test Item Value Reference Range Interpretation Comme nts WHITE BLOOD CELL (test code = WBC) 5.3 x10 3/uL 4.5-11.0 N RED BLOOD CELL (test code = RBC) 3.69 x10 6/uL 3.54-5.02 N HEMOGLOBIN (test code = HGB) 9.5 g/dL 11.0-15.0 L HEMATOCRIT (test code = HCT) 30.6 % 33.0-45.0 L MEAN CELL VOLUME (test code = MCV) 82.9 fL 81.0-99.0 N MEAN CELL HGB (test code = MCH) 25.7 pg 27.0-33.0 L MEAN CELL HGB CONCETRATION (test code = MCHC) 31.0 g/dL 33.0-37.0 L RED CELL DISTRIBUTION WIDTH CV (test code = RDW) 16.4 % 11.5-14.5 H RED CELL DISTRIBUTION WIDTH SD (test code = RDW-SD) 48.8 fL 37.0-54.0 N PLATELET COUNT (test code = PLT) 114 x10 3/uL 150-400 L MEAN PLATELET VOLUME (test c ode = MPV) 13.4 fL 7.0-9.0 H NEUTROPHIL % (test code = NT%) 69.0 % 56.0-77.0 N IMMATURE GRANULOCYTE % (test code = IG%) 0.4 % 0.0-2.0 N LYMPHOCYTE % (test code = LY%) 17.9 % 14.0-32.0 N MONOCYTE % (test code = MO%) 8.3 % 4.8-9.0 N EOSINOPHIL % (test code = EO%) 4.0 % 0.3-3.7 H BASOPHIL % (test code = BA%) 0.4 % 0.0-2.0 N NUCLEATED RBC % (test code = NRBC%) 0.0 % 0-0 N NEUTROPHIL # (test code = NT#) 3.67 x10 3/uL 2.0-7.6 N IMMATURE GRANULOCYTE # (test code = IG#) 0.02 x10 3/uL 0.00-0.03 N LYMPHOCYTE # (test code = LY#) 0.95 x10 3/uL 1.0-3.8 L MONOCYTE # (test code = MO#) 0.44 x10 3/uL 0.1-0.8 N EOSINOPHIL # (test code = EO#) 0.21 x10 3/uL 0.0-0.2 H BASOPHIL # (test code = BA#) 0.02 x10 3/uL 0.0-0.2 N NUCLEATED RBC # (test code = NRBC#) 0.00 x10 3/uL 0.0-0.1 N GLUCOSE [id number] 08:42:00* Test Item Value Reference Range Interpretation Comme nts GLUCOSE BEDSIDE (test code = GLUBED) 128 MG/DL 70-110 H Performed by cer tified power plant operators supervisor at [facility] GLUCOSE [id number] 00:23:00* Test Item Value Reference Range Interpretation Comme nts GLUCOSE BEDSIDE (test code = GLUBED) 93 MG/DL 70-110 N Performed by cer tified power plant operators supervisor at [facility] GLUCOSE [id number] 22:53:00* Test Item Value Reference Range Interpretation Comme nts GLUCOSE BEDSIDE (test code = GLUBED) 213 MG/DL 70-110 H Performed by cer tified power plant operators supervisor at [facility] GLUCOSE [id number] 16:59:00* Test Item Value Reference Range Interpretation Comme nts GLUCOSE BEDSIDE (test code = GLUBED) 85 MG/DL 70-110 N Performed by cer tified power plant operators supervisor at [facility] GLUCOSE [id number] 12:00:00* Test Item Value Reference Range Interpretation Comme nts GLUCOSE BEDSIDE (test code = GLUBED) 212 MG/DL 70-110 H Performed by cer tified power plant operators supervisor at [facility] GLUCOSE [id number] 08:26:00* Test Item Value Reference Range Interpretation Comme nts GLUCOSE BEDSIDE (test code = GLUBED) 287 MG/DL 70-110 H Performed by cer tified power plant operators supervisor at [facility] BASIC METABOLIC [id number] 06:34:00* Test Item Value Reference Range Interpretation Comme nts SODIUM (test code = NA) 135 mEq/L 134-147 N POTASSIUM (test code = K) 3.9 mEq/L 3.4-5.0 N CHLORIDE (test code = CL) 106 mEq/L 100-108 N CARBON DIOXIDE (test code = CO2) 26 mEq/l 21-33 N ANION GAP (test code = GAP) 7 0-20 N GLUCOSE (test code = GLU) 324 mg/dL 77-141 H BLOOD UREA NITROGEN (test code = BUN) 12 mg/dL 7-25 N GLOMERULAR FILTRATION RATE (test code = GFR) 107.9 90-95 H The Glomerular Filtration Rate is a calculated parameterbased on serum Creatinine, patient age and sex. GFR valuesless than 60 mL/min/1.73 square meters are indicative ofChronic Kidney Disease. Values less than 15 mL/min/1.73square meters indicate Kidney failure. The calculation forGFR is based on the CKD-EPI (202) calculation. This formulais race indifferent and is the recommended formula for GFRby the National Kidney Foundation for Adults.The GFR will not calculate if the sex is unknown or if thepatient's age is <18 years. CREATININE (test code = CREAT) 0.6 mg/dL 0.6-1.3 N CALCIUM (test code = CA) 8.4 mg/dL 8.0-10.5 N [id number] 06:34:00* Test Item Value Reference Range Interpretation Comme nts MAGNESIUM (test code = MAG) 1.74 mg/dL 1.6-2.6 N CBC W/AUTO [id number] 06:00:00* Test Item Value Reference Range Interpretation Comme nts WHITE BLOOD CELL (test code = WBC) 4.0 x10 3/uL 4.5-11.0 L RED BLOOD CELL (test code = RBC) 2.70 x10 6/uL 3.54-5.02 L HEMOGLOBIN (test code = HGB) 6.6 g/dL 11.0-15.0 L HEMATOCRIT (test code = HCT) 22.1 % 33.0-45.0 L MEAN CELL VOLUME (test code = MCV) 81.9 fL 81.0-99.0 N MEAN CELL HGB (test code = MCH) 24.4 pg 27.0-33.0 L MEAN CELL HGB CONCETRATION (test code = MCHC) 29.9 g/dL 33.0-37.0 L RED CELL DISTRIBUTION WIDTH CV (test code = RDW) 17.2 % 11.5-14.5 H RED CELL DISTRIBUTION WIDTH SD (test code = RDW-SD) 51.0 fL 37.0-54.0 N PLATELET COUNT (test code = PLT) 61 x10 3/uL 150-400 L IMMATURE PLATELET FRACTION (test code = IPF) 10.9 % 0.9-11.2 N MEAN PLATELET VOLUME (test c ode = MPV) 12.5 fL 7.0-9.0 H NEUTROPHIL % (test code = NT%) 67.1 % 56.0-77.0 N IMMATURE GRANULOCYTE % (test code = IG%) 0.5 % 0.0-2.0 N LYMPHOCYTE % (test code = LY%) 18.7 % 14.0-32.0 N MONOCYTE % (test code = MO%) 10.6 % 4.8-9.0 H EOSINOPHIL % (test code = EO%) 2.8 % 0.3-3.7 N BASOPHIL % (test code = BA%) 0.3 % 0.0-2.0 N NUCLEATED RBC % (test code = NRBC%) 0.0 % 0-0 N NEUTROPHIL # (test code = NT#) 2.66 x10 3/uL 2.0-7.6 N IMMATURE GRANULOCYTE # (test code = IG#) 0.02 x10 3/uL 0.00-0.03 N LYMPHOCYTE # (test code = LY#) 0.74 x10 3/uL 1.0-3.8 L MONOCYTE # (test code = MO#) 0.42 x10 3/uL 0.1-0.8 N EOSINOPHIL # (test code = EO#) 0.11 x10 3/uL 0.0-0.2 N BASOPHIL # (test code = BA#) 0.01 x10 3/uL 0.0-0.2 N NUCLEATED RBC # (test code = NRBC#) 0.00 x10 3/uL 0.0-0.1 N HEPARIN INDUCED [id number] 23:31:00* Test Item Value Reference Range Interpretation Comme nts HEPARIN INDUCED THROMBOCYTOPEN (test code = HITAB) POSITIVE A Critical Value r eported toFirst Name:HARDIK Last Name:BETHANIE READ BACK AND VERIFIEDby [id number], on 11/12/24, @ 1596.The HIT (PF4) test is a qualitative, fully automated lateximmunoassay that detects, IgG, IgM and IgA associatedantibodies and is used as a primary screening assay for thedetection of Platelet Factor 4 Heparin-Dependent Antibodies.Positive or negative is the final interpreted result. Thepositive or negative result should be used with otherinformation, including the clinical context, in forming adiagnosis such as the 4T score and the 2013 [place] [employer] guidelines. NEGATIVE results indicate the absence of Platelet Factor 4Heparin-Dependent Antibodies to IgG, IgM or IgA. A negativeresult for anti-PF4 heparin antibodies can support theclinical decision to exclude the presence of HIT, andtherefore continue heparin treatment. POSITIVE results indicate the presence of Platelet Factor 4Heparin-Dependent Antibodies to IgG, IgM or IgA. Although apositive result obtained using this assay may indicate thepresence of heparin-associated antibodies, a positive resultDOES NOT CONFIRM the diagnosis of HIT. Confirmation with afunctional test is recommended. A clinical reassesmentsupported by laboratory data should be performed beforeconfirmation or exclusion of the diagnosis. Some patientsmay have naturally occurring antibodies to PF4. If clinically indicated, a repeat study is recommended in2-3 days after the patient has been off heparin for at least4 hours. HEPARIN INDUCED [id number] 23:31:00* Test Item Value Reference Range Interpretation Comme nts HEPARIN INDUCED THROMBOCYTOPEN (test code = HITAB) POSITIVE See_Comment A Critical Value r eported toFirst Name:HARDIK Last Name:BEHTANIE READ BACK AND VERIFIEDby [id number], on 11/12/24, @ 4053.The HIT (PF4) test is a qualitative, fully automated lateximmunoassay that detects, IgG, IgM and IgA associatedantibodies and is used as a primary screening assay for thedetection of Platelet Factor 4 Heparin-Dependent Antibodies.Positive or negative is the final interpreted result. Thepositive or negative result should be used with otherinformation, including the clinical context, in forming adiagnosis such as the 4T score and the 2013 [place] [employer] Hemat[employer] guidelines. NEGATIVE results indicate the absence of Platelet Factor 4Heparin-Dependent Antibodies to IgG, IgM or IgA. A negativeresult for anti-PF4 heparin antibodies can support theclinical decision to exclude the presence of HIT, andtherefore continue heparin treatment. POSITIVE results indicate the presence of Platelet Factor 4Heparin-Dependent Antibodies to IgG, IgM or IgA. Although apositive result obtained using this assay may indicate thepresence of heparin-associated antibodies, a positive resultDOES NOT CONFIRM the diagnosis of HIT. Confirmation with afunctional test is recommended. A clinical reassesmentsupported by laboratory data should be performed beforeconfirmation or exclusion of the diagnosis. Some patientsmay have naturally occurring antibodies to PF4. If clinically indicated, a repeat study is recommended in2-3 days after the patient has been off heparin for at least4 hours. [Automated message] The system which generated this result transmitted reference range: (). The reference range was not used to interpret this result as normal/abnormal. GLUCOSE [id number] 20:51:00* Test Item Value Reference Range Interpretation Comme nts GLUCOSE BEDSIDE (test code = GLUBED) 229 MG/DL 70-110 H Performed by cer tified power plant operators supervisor at [facility] GLUCOSE [id number] 16:56:00* Test Item Value Reference Range Interpretation Comme nts GLUCOSE BEDSIDE (test code = GLUBED) 141 MG/DL 70-110 H Performed by cer tified power plant operators supervisor at [facility] GLUCOSE [id number] 12:25:00* Test Item Value Reference Range Interpretation Comme nts GLUCOSE BEDSIDE (test code = GLUBED) 321 MG/DL 70-110 H Performed by cer tified power plant operators supervisor at [facility] GLUCOSE [id number] 09:14:00* Test Item Value Reference Range Interpretation Comme nts GLUCOSE BEDSIDE (test code = GLUBED) 333 MG/DL 70-110 H Performed by cer tified power plant operators supervisor at [facility] BASIC METABOLIC [id number] 06:20:00* Test Item Value Reference Range Interpretation Comme nts SODIUM (test code = NA) 135 mEq/L 134-147 N POTASSIUM (test code = K) 4.3 mEq/L 3.4-5.0 N CHLORIDE (test code = CL) 103 mEq/L 100-108 N CARBON DIOXIDE (test code = CO2) 28 mEq/l 21-33 N ANION GAP (test code = GAP) 8 0-20 N GLUCOSE (test code = GLU) 286 mg/dL 77-141 H BLOOD UREA NITROGEN (test code = BUN) 10 mg/dL 7-25 N GLOMERULAR FILTRATION RATE (test code = GFR) 104.0 90-95 H The Glomerular Filtration Rate is a calculated parameterbased on serum Creatinine, patient age and sex. GFR valuesless than 60 mL/min/1.73 square meters are indicative ofChronic Kidney Disease. Values less than 15 mL/min/1.73square meters indicate Kidney failure. The calculation forGFR is based on the CKD-EPI (202) calculation. This formulais race indifferent and is the recommended formula for GFRby the National Kidney Foundation for Adults.The GFR will not calculate if the sex is unknown or if thepatient's age is <18 years. CREATININE (test code = CREAT) 0.7 mg/dL 0.6-1.3 N CALCIUM (test code = CA) 8.8 mg/dL 8.0-10.5 N COMMENTS: POD #1HEPATIC FUNCTION [id number] 06:20:00* Test Item Value Reference Range Interpretation Comme nts TOTAL PROTEIN (test code = PROT) 6.2 g/dL 5.7-8.2 N Note change in REFERENCE RANGE due to change in REAGENT. ALBUMIN (test code = ALB) 3.10 g/dL 3.4-5.0 L BILIRUBIN TOTAL (test code = BILT) 0.40 mg/dL 0.0-1.0 N BILIRUBIN DIRECT (test code = BILD) 0.20 MG/DL 0.1-0.3 N BILIRUBIN INDIRECT (test code = BILIND) 0.20 MG/DL SGOT/AST (test code = AST) 20 IUnit/L 8-34 N SGPT/ALT (test code = ALT) 15 IUnit/L 10-49 N ALKALINE PHOSPHATASE TOTAL (test code = ALKP) 77 IUnit/L 20-125 N COMMENTS: POD #[id number] 06:20:00* Test Item Value Reference Range Interpretation Comme nts MAGNESIUM (test code = MAG) 1.72 mg/dL 1.6-2.6 N COMMENTS: POD #1CBC W/AUTO [id number] 04:22:00* Test Item Value Reference Range Interpretation Comme nts WHITE BLOOD CELL (test code = WBC) 7.5 x10 3/uL 4.5-11.0 N RED BLOOD CELL (test code = RBC) 3.18 x10 6/uL 3.54-5.02 L HEMOGLOBIN (test code = HGB) 7.8 g/dL 11.0-15.0 L HEMATOCRIT (test code = HCT) 25.9 % 33.0-45.0 L MEAN CELL VOLUME (test code = MCV) 81.4 fL 81.0-99.0 N MEAN CELL HGB (test code = MCH) 24.5 pg 27.0-33.0 L MEAN CELL HGB CONCETRATION (test code = MCHC) 30.1 g/dL 33.0-37.0 L RED CELL DISTRIBUTION WIDTH CV (test code = RDW) 16.8 % 11.5-14.5 H RED CELL DISTRIBUTION WIDTH SD (test code = RDW-SD) 49.4 fL 37.0-54.0 N PLATELET COUNT (test code = PLT) 94 x10 3/uL 150-400 L MEAN PLATELET VOLUME (test c ode = MPV) 12.0 fL 7.0-9.0 H NEUTROPHIL % (test code = NT%) 71.4 % 56.0-77.0 N IMMATURE GRANULOCYTE % (test code = IG%) 0.5 % 0.0-2.0 N LYMPHOCYTE % (test code = LY%) 16.7 % 14.0-32.0 N MONOCYTE % (test code = MO%) 8.9 % 4.8-9.0 N EOSINOPHIL % (test code = EO%) 2.1 % 0.3-3.7 N BASOPHIL % (test code = BA%) 0.4 % 0.0-2.0 N NUCLEATED RBC % (test code = NRBC%) 0.0 % 0-0 N NEUTROPHIL # (test code = NT#) 5.38 x10 3/uL 2.0-7.6 N IMMATURE GRANULOCYTE # (test code = IG#) 0.04 x10 3/uL 0.00-0.03 H LYMPHOCYTE # (test code = LY#) 1.26 x10 3/uL 1.0-3.8 N MONOCYTE # (test code = MO#) 0.67 x10 3/uL 0.1-0.8 N EOSINOPHIL # (test code = EO#) 0.16 x10 3/uL 0.0-0.2 N BASOPHIL # (test code = BA#) 0.03 x10 3/uL 0.0-0.2 N NUCLEATED RBC # (test code = NRBC#) 0.00 x10 3/uL 0.0-0.1 N GLUCOSE [id number] 23:57:00* Test Item Value Reference Range Interpretation Comme nts GLUCOSE BEDSIDE (test code = GLUBED) 241 MG/DL 70-110 H Performed by cer tified power plant operators supervisor at [facility] GLUCOSE [id number] 19:33:00* Test Item Value Reference Range Interpretation Comme nts GLUCOSE BEDSIDE (test code = GLUBED) 227 MG/DL 70-110 H Performed by cer tified power plant operators supervisor at [facility] BASIC METABOLIC [id number] 18:12:00* Test Item Value Reference Range Interpretation Comme nts SODIUM (test code = NA) 133 mEq/L 134-147 L POTASSIUM (test code = K) 4.5 mEq/L 3.4-5.0 N CHLORIDE (test code = CL) 103 mEq/L 100-108 N CARBON DIOXIDE (test code = CO2) 26 mEq/l 21-33 N ANION GAP (test code = GAP) 8 0-20 N GLUCOSE (test code = GLU) 262 mg/dL 77-141 H BLOOD UREA NITROGEN (test code = BUN) 11 mg/dL 7-25 N GLOMERULAR FILTRATION RATE (test code = GFR) 88.6 90-95 L The Glomerular Filtration Rate is a calculated parameterbased on serum Creatinine, patient age and sex. GFR valuesless than 60 mL/min/1.73 square meters are indicative ofChronic Kidney Disease. Values less than 15 mL/min/1.73square meters indicate Kidney failure. The calculation forGFR is based on the CKD-EPI (2020) calculation. This formulais race indifferent and is the recommended formula for GFRby the National Kidney Foundation for Adults.The GFR will not calculate if the sex is unknown or if thepatient's age is <18 years. CREATININE (test code = CREAT) 0.8 mg/dL 0.6-1.3 N CALCIUM (test code = CA) 8.7 mg/dL 8.0-10.5 N [id number] 18:12:00* Test Item Value Reference Range Interpretation Comme nts MAGNESIUM (test code = MAG) 1.61 mg/dL 1.6-2.6 N GLUCOSE [id number] 16:43:00* Test Item Value Reference Range Interpretation Comme nts GLUCOSE BEDSIDE (test code = GLUBED) 185 MG/DL 70-110 H Performed by cer [employer] power plant operators supervisor at [facility] GLUCOSE [id number] 11:39:00* Test Item Value Reference Range Interpretation Comme nts GLUCOSE BEDSIDE (test code = GLUBED) 371 MG/DL 70-110 H Performed by [employer] power plant operators supervisor at [facility] GLUCOSE [id number] 08:34:00* Test Item Value Reference Range Interpretation Comme nts GLUCOSE BEDSIDE (test code = GLUBED) 270 MG/DL 70-110 H Performed by [employer] power plant operators supervisor at [facility] BASIC METABOLIC [id number] 04:27:00* Test Item Value Reference Range Interpretation Comme nts SODIUM (test code = NA) 135 mEq/L 134-147 N POTASSIUM (test code = K) 4.5 mEq/L 3.4-5.0 N CHLORIDE (test code = CL) 106 mEq/L 100-108 N CARBON DIOXIDE (test code = CO2) 25 mEq/l 21-33 N ANION GAP (test code = GAP) 8 0-20 N GLUCOSE (test code = GLU) 317 mg/dL 77-141 H BLOOD UREA NITROGEN (test code = BUN) 12 mg/dL 7-25 N GLOMERULAR FILTRATION RATE (test code = GFR) 104.0 90-95 H The Glomerular Filtration Rate is a calculated parameterbased on serum Creatinine, patient age and sex. GFR valuesless than 60 mL/min/1.73 square meters are indicative ofChronic Kidney Disease. Values less than 15 mL/min/1.73square meters indicate Kidney failure. The calculation forGFR is based on the CKD-EPI (202) calculation. This formulais race indifferent and is the recommended formula for GFRby the National Kidney Foundation for Adults.The GFR will not calculate if the sex is unknown or if thepatient's age is <18 years. CREATININE (test code = CREAT) 0.7 mg/dL 0.6-1.3 N CALCIUM (test code = CA) 8.6 mg/dL 8.0-10.5 N COMMENTS: POD #1HEPATIC FUNCTION [id number] 04:27:00* Test Item Value Reference Range Interpretation Comme nts TOTAL PROTEIN (test code = PROT) 6.1 g/dL 5.7-8.2 N Note change in REFERENCE RANGE due to change in REAGENT. ALBUMIN (test code = ALB) 3.10 g/dL 3.4-5.0 L BILIRUBIN TOTAL (test code = BILT) 0.50 mg/dL 0.0-1.0 N BILIRUBIN DIRECT (test code = BILD) 0.20 MG/DL 0.1-0.3 N BILIRUBIN INDIRECT (test code = BILIND) 0.30 MG/DL SGOT/AST (test code = AST) 38 IUnit/L 8-34 H SGPT/ALT (test code = ALT) 15 IUnit/L 10-49 N ALKALINE PHOSPHATASE TOTAL (test code = ALKP) 73 IUnit/L 20-125 N COMMENTS: POD #[id number] 04:27:00* Test Item Value Reference Range Interpretation Comme nts MAGNESIUM (test code = MAG) 1.76 mg/dL 1.6-2.6 N COMMENTS: POD #1CBC W/AUTO [id number] 04:10:00* Test Item Value Reference Range Interpretation Comme nts WHITE BLOOD CELL (test code = WBC) 11.1 x10 3/uL 4.5-11.0 H RED BLOOD CELL (test code = RBC) 2.98 x10 6/uL 3.54-5.02 L HEMOGLOBIN (test code = HGB) 7.2 g/dL 11.0-15.0 L HEMATOCRIT (test code = HCT) 24.4 % 33.0-45.0 L MEAN CELL VOLUME (test code = MCV) 81.9 fL 81.0-99.0 N MEAN CELL HGB (test code = MCH) 24.2 pg 27.0-33.0 L MEAN CELL HGB CONCETRATION (test code = MCHC) 29.5 g/dL 33.0-37.0 L RED CELL DISTRIBUTION WIDTH CV (test code = RDW) 16.9 % 11.5-14.5 H RED CELL DISTRIBUTION WIDTH SD (test code = RDW-SD) 50.0 fL 37.0-54.0 N PLATELET COUNT (test code = PLT) 113 x10 3/uL 150-400 L MEAN PLATELET VOLUME (test c ode = MPV) 12.3 fL 7.0-9.0 H NEUTROPHIL % (test code = NT%) 75.1 % 56.0-77.0 N IMMATURE GRANULOCYTE % (test code = IG%) 0.5 % 0.0-2.0 N LYMPHOCYTE % (test code = LY%) 12.2 % 14.0-32.0 L MONOCYTE % (test code = MO%) 9.9 % 4.8-9.0 H EOSINOPHIL % (test code = EO%) 1.9 % 0.3-3.7 N BASOPHIL % (test code = BA%) 0.4 % 0.0-2.0 N NUCLEATED RBC % (test code = NRBC%) 0.0 % 0-0 N NEUTROPHIL # (test code = NT#) 8.36 x10 3/uL 2.0-7.6 H IMMATURE GRANULOCYTE # (test code = IG#) 0.05 x10 3/uL 0.00-0.03 H LYMPHOCYTE # (test code = LY#) 1.35 x10 3/uL 1.0-3.8 N MONOCYTE # (test code = MO#) 1.10 x10 3/uL 0.1-0.8 H EOSINOPHIL # (test code = EO#) 0.21 x10 3/uL 0.0-0.2 H BASOPHIL # (test code = BA#) 0.04 x10 3/uL 0.0-0.2 N NUCLEATED RBC # (test code = NRBC#) 0.00 x10 3/uL 0.0-0.1 N GLUCOSE [id number] 19:46:00* Test Item Value Reference Range Interpretation Comme nts GLUCOSE BEDSIDE (test code = GLUBED) 135 MG/DL 70-110 H Performed by cer [employer] plant operators supervisor at [facility] GLUCOSE [id number] 11:34:00* Test Item Value Reference Range Interpretation Comme nts GLUCOSE BEDSIDE (test code = GLUBED) 124 MG/DL 70-110 H Performed by cer [employer] plant operators supervisor at [facility] GLUCOSE [id number] 07:32:00* Test Item Value Reference Range Interpretation Comme nts GLUCOSE BEDSIDE (test code = GLUBED) 153 MG/DL 70-110 H Performed by cer tified power plant operators supervisor at [facility] GLUCOSE [id number] 06:27:00* Test Item Value Reference Range Interpretation Comme nts GLUCOSE BEDSIDE (test code = GLUBED) 187 MG/DL 70-110 H Performed by cer tified power plant operators supervisor at [facility] POC ARTERIAL BLOOD [id number] 05:22:00* Test Item Value Reference Range Interpretation Comme nts POC ARTERIAL BLOOD GAS PH (test code = POCPHA) 7.359 7.35-7.45 N POC ARTERIAL BLOOD GAS PCO2 (test code = BYEVVI0R) 45.0 mmHg 35.0-45 N POC TCO2 ARTERIAL (test code = POCTCO2) 26.8 22-29 N POC ARTERIAL BLOOD GAS PO2 (test code = SZEGU9O) 88.9 mmHg 80-100.0 N POC HCO3 ARTERIAL (test code = RSUSEV1E) 25.4 MMOL/L 22.0-26.0 N POC BASE EXCESS (test code = POCBEA) -0.1 MMOL/L See_Comment L [Automated messa ge] The system which generated this result transmitted reference range: 0-+/-4. The reference range was not used to interpret this result as normal/abnormal. POC O2 SATURATION (test code = POCO2S) 96.4 % 90-100 N ABG DELIVERY (test code = ESTHER) Cannula ABG TEMPERATURE (test code = TEMPA) 98.4 F ABG SITE (test code = SITEA) [employer] BASIC METABOLIC [id number] 05:22:00* Test Item Value Reference Range Interpretation Comme nts SODIUM (test code = NA/ABG) 143 mmol/L 134-147 N POTASSIUM (test code = K/ABG) 4.3 mmol/L 3.4-5.0 N CHLORIDE (test code = CL/ABG) 107 mmol/L 100-108 N CREATININE ABG (test code = CREAABG) 0.6 mg/dL 0.6-1.3 N POC IONIZED CALCIUM (test co de = POCCA) 1.35 MMOL/L 1.12-1.32 H POC GLUCOSE (test code = POCGLU) 175 MG/DL 70-110 H HEMOGLOBIN [id number] 05:22:00* Test Item Value Reference Range Interpretation Comme nts HEMOGLOBIN ABG (test code = HGB/ABG) 7.8 G/DL 11.0-15.0 L [id number] 05:22:00* Test Item Value Reference Range Interpretation Comme nts HEMATOCRIT (test code = HCT/ABG) 23 % 33-45 L CBC W/AUTO [id number] 03:16:00* Test Item Value Reference Range Interpretation Comme nts WHITE BLOOD CELL (test code = WBC) 11.3 x10 3/uL 4.5-11.0 H RED BLOOD CELL (test code = RBC) 2.84 x10 6/uL 3.54-5.02 L HEMOGLOBIN (test code = HGB) 6.9 g/dL 11.0-15.0 L HEMATOCRIT (test code = HCT) 23.0 % 33.0-45.0 L MEAN CELL VOLUME (test code = MCV) 81.0 fL 81.0-99.0 N MEAN CELL HGB (test code = MCH) 24.3 pg 27.0-33.0 L MEAN CELL HGB CONCETRATION (test code = MCHC) 30.0 g/dL 33.0-37.0 L RED CELL DISTRIBUTION WIDTH CV (test code = RDW) 16.4 % 11.5-14.5 H RED CELL DISTRIBUTION WIDTH SD (test code = RDW-SD) 47.8 fL 37.0-54.0 N PLATELET COUNT (test code = PLT) 94 x10 3/uL 150-400 L MEAN PLATELET VOLUME (test code = MPV) 10.7 fL 7.0-9.0 H NEUTROPHIL % (test code = NT%) 89.2 % 56.0-77.0 H IMMATURE GRANULOCYTE % (test code = IG%) 0.4 % 0.0-2.0 N LYMPHOCYTE % (test code = LY%) 4.9 % 14.0-32.0 L MONOCYTE % (test code = MO%) 5.4 % 4.8-9.0 N EOSINOPHIL % (test code = EO%) 0.0 % 0.3-3.7 L BASOPHIL % (test code = BA%) 0.1 % 0.0-2.0 N NUCLEATED RBC % (test code = NRBC%) 0.0 % 0-0 N NEUTROPHIL # (test code = NT#) 10.11 x10 3/uL 2.0-7.6 H IMMATURE GRANULOCYTE # (test code = IG#) 0.05 x10 3/uL 0.00-0.03 H LYMPHOCYTE # (test code = LY#) 0.56 x10 3/uL 1.0-3.8 L MONOCYTE # (test code = MO#) 0.61 x10 3/uL 0.1-0.8 N EOSINOPHIL # (test code = EO#) 0.00 x10 3/uL 0.0-0.2 N BASOPHIL # (test code = BA#) 0.01 x10 3/uL 0.0-0.2 N NUCLEATED RBC # (test code = NRBC#) 0.00 x10 3/uL 0.0-0.1 N PLT [id number] 03:16:00* Test Item Value Reference Range Interpretation Comme nts PLATELET ESTIMATE (test code = PLTEST) 99 x10 3/uL 150-400 L PLATELET MORPHOLOGY (test co de = PLTMORPH) NORMAL BASIC METABOLIC [id number] 02:34:00* Test Item Value Reference Range Interpretation Comme nts SODIUM (test code = NA) 141 mEq/L 134-147 N POTASSIUM (test code = K) 4.5 mEq/L 3.4-5.0 N CHLORIDE (test code = CL) 113 mEq/L 100-108 H CARBON DIOXIDE (test code = CO2) 26 mEq/l 21-33 N ANION GAP (test code = GAP) 6 0-20 N GLUCOSE (test code = GLU) 117 mg/dL 77-141 N BLOOD UREA NITROGEN (test code = BUN) 14 mg/dL 7-25 N GLOMERULAR FILTRATION RATE (test code = GFR) 107.9 90-95 H The Glomerular Filtration Rate is a calculated parameterbased on serum Creatinine, patient age and sex. GFR valuesless than 60 mL/min/1.73 square meters are indicative ofChronic Kidney Disease. Values less than 15 mL/min/1.73square meters indicate Kidney failure. The calculation forGFR is based on the CKD-EPI (2020) calculation. This formulais race indifferent and is the recommended formula for GFRby the National Kidney Foundation for Adults.The GFR will not calculate if the sex is unknown or if thepatient's age is <18 years. CREATININE (test code = CREAT) 0.6 mg/dL 0.6-1.3 N CALCIUM (test code = CA) 8.5 mg/dL 8.0-10.5 N COMMENTS: POD #1HEPATIC FUNCTION [id number] 02:34:00* Test Item Value Reference Range Interpretation Comme nts TOTAL PROTEIN (test code = PROT) 5.7 g/dL 5.7-8.2 N Note change in REFERENCE RANGE due to change in REAGENT. ALBUMIN (test code = ALB) 3.20 g/dL 3.4-5.0 L BILIRUBIN TOTAL (test code = BILT) 0.50 mg/dL 0.0-1.0 N BILIRUBIN DIRECT (test code = BILD) 0.20 MG/DL 0.1-0.3 BILIRUBIN INDIRECT (test code = BILIND) 0.30 MG/DL SGOT/AST (test code = AST) 39 IUnit/L 8-34 H SGPT/ALT (test code = ALT) 14 IUnit/L 10-49 ALKALINE PHOSPHATASE TOTAL (test code = ALKP) 65 IUnit/L 20-125 N COMMENTS: POD #[id number] 02:34:00* Test Item Value Reference Range Interpretation Comme nts MAGNESIUM (test code = MAG) 2.14 mg/dL 1.6-2.6 N COMMENTS: POD #1POC ARTERIAL BLOOD [id number] 02:11:00* Test Item Value Reference Range Interpretation Comme nts POC ARTERIAL BLOOD GAS PH (test code = POCPHA) 7.353 7.35-7.45 N POC ARTERIAL BLOOD GAS PCO2 (test code = PAFLDO3G) 50.9 mmHg 35.0-45 HH POC TCO2 ARTERIAL (test code = POCTCO2) 29.9 22-29 H POC ARTERIAL BLOOD GAS PO2 (test code = ZONLN5T) 169.9 mmHg 80-100.0 H POC HCO3 ARTERIAL (test code = DSOHDI6O) 28.3 MMOL/L 22.0-26.0 HH POC BASE EXCESS (test code = POCBEA) 2.8 MMOL/L See_Comment N [Automated Fidelisa ge] The system which generated this result transmitted reference range: 0-+/-4. The reference range was not used to interpret this result as normal/abnormal. POC O2 SATURATION (test code = POCO2S) 99.4 % 90-100 N ABG DELIVERY (test code = ESTHER) Cannula ABG TEMPERATURE (test code = TEMPA) 98.2 F ABG SITE (test code = SITEA) [employer] BASIC METABOLIC [id number] 02:11:00* Test Item Value Reference Range Interpretation Comme nts SODIUM (test code = NA/ABG) 144 mmol/L 134-147 N POTASSIUM (test code = K/ABG) 4.4 mmol/L 3.4-5.0 N CHLORIDE (test code = CL/ABG) 106 mmol/L 100-108 N CREATININE ABG (test code = CREAABG) 0.5 mg/dL 0.6-1.3 L POC IONIZED CALCIUM (test co de = POCCA) 1.41 MMOL/L 1.12-1.32 H POC GLUCOSE (test code = POCGLU) 120 MG/DL 70-110 H HEMOGLOBIN [id number] 02:11:00* Test Item Value Reference Range Interpretation Comme nts HEMOGLOBIN ABG (test code = HGB/ABG) 7.3 G/DL 11.0-15.0 L [id number] 02:11:00* Test Item Value Reference Range Interpretation Comme nts HEMATOCRIT (test code = HCT/ABG) 21 % 33-45 L POC ARTERIAL BLOOD [id number] 00:17:00* Test Item Value Reference Range Interpretation Comme nts POC ARTERIAL BLOOD GAS PH (test code = POCPHA) 7.320 7.35-7.45 L POC ARTERIAL BLOOD GAS PCO2 (test code = WAGFZK4W) 50.6 mmHg 35.0-45 HH POC TCO2 ARTERIAL (test code = POCTCO2) 27.6 22-29 N POC ARTERIAL BLOOD GAS PO2 (test code = TWAMC4D) 229.7 mmHg 80-100.0 HH POC HCO3 ARTERIAL (test code = TGLZKK5K) 26.1 MMOL/L 22.0-26.0 H POC BASE EXCESS (test code = POCBEA) 0.0 MMOL/L See_Comment N [Automated messa ge] The system which generated this result transmitted reference range: 0-+/-4. The reference range was not used to interpret this result as normal/abnormal. POC O2 SATURATION (test code = POCO2S) 99.7 % 90-100 N ABG DELIVERY (test code = ESTHER) Cannula ABG TEMPERATURE (test code = TEMPA) 97.9 F ABG SITE (test code = SITEA) Art Line BASIC METABOLIC [id number] 00:17:00* Test Item Value Reference Range Interpretation Comme nts SODIUM (test code = NA/ABG) 143 mmol/L 134-147 N POTASSIUM (test code = K/ABG) 4.3 mmol/L 3.4-5.0 N CHLORIDE (test code = CL/ABG) 108 mmol/L 100-108 N CREATININE ABG (test code = CREAABG) 0.5 mg/dL 0.6-1.3 L POC IONIZED CALCIUM (test co de = POCCA) 1.38 MMOL/L 1.12-1.32 H POC GLUCOSE (test code = POCGLU) 141 MG/DL 70-110 H HEMOGLOBIN [id number] 00:17:00* Test Item Value Reference Range Interpretation Comme [facility] HEMOGLOBIN ABG (test code = HGB/ABG) 7.3 G/DL 11.0-15.0 L [id number] 00:17:00* Test Item Value Reference Range Interpretation Comme [facility] HEMATOCRIT (test code = HCT/ABG) 22 % 33-45 L GLUCOSE [id number] 00:12:00* Test Item Value Reference Range Interpretation Comme [facility] GLUCOSE BEDSIDE (test code = GLUBED) 127 MG/DL 70-110 H Performed by cer [employer] power plant operators supervisor at [facility] [id number] 22:55:00* Test Item Value Reference Range Interpretation Comme nts R-TIME (test code = RTIME) 5.9 min 4.6-9.1 N K-TIME (test code = KTIME) 1.2 min 0.8-2.1 N ANGLE (test code = ANG) 74.0 degrees 63-78 N MAXIMUM AMPLITUDE (test code = MA) 59.6 mm 52-69 N TEG TRAIN DRIVER RAP MAXIMUM AMPLITUD E (test code = CRTMA) 61.4 mm 52-70 N TEG CIT KOALIN HEPARINASE CT (test code = CKHR) 5.4 mins 4.3-8.3 N Citrated FUNC FIB MAX AMP (t est code = CFFMA) 19.1 mm 15-32 N CIT FUNCTIONAL FIB ESTIMATED (test code = CFFFLEV) 348.5 mg/dL 278-581 N GLUCOSE [id number] 22:21:00* Test Item Value Reference Range Interpretation Comme nts GLUCOSE BEDSIDE (test code = GLUBED) 143 MG/DL 70-110 H Performed by cer [employer]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 Prophylaxis of venous thrombosis 2.0 - 3.0 (orthopedic surgery), Prophylaxis of venous thrombosis (other than high-risk surgery), Treatment of Deep Vein Thrombosis/Pulmonary Embolism, Prevention of systemic embolism - Tissue heart valves, Acute Myocardial Infarction (to prevent systemic embolism), Valvular heart disease, Atrial Fibrillation, [place] mechanical valve in aortic position.2. Mechanical prosthetic valves (high risk), 2.5 - 3.5 Presence of Lupus Anticoagulant or Antiphospholipid Antibodies, Prevention of systemic embolism - Acute Myocardial Infarction (to prevent recurrent infarct). THROMBOPLASTIN TIME [id number] 21:05:00* Test Item Value Reference Range Interpretation Comme nts THROMBOPLASTIN TIME PARTIAL (test code = PTT) 26.6 Seconds 25.0-39.5 N Therapeutic Rang e: 58.8 - 96.0 Seconds Effective 06/15/2024 POC ARTERIAL BLOOD [id number] 19:50:00* Test Item Value Reference Range Interpretation Comme nts POC ARTERIAL BLOOD GAS PH (test code = POCPHA) 7.338 7.35-7.45 L POC ARTERIAL BLOOD GAS PCO2 (test code = AEPCAF4C) 51.0 mmHg 35.0-45 HH POC TCO2 ARTERIAL (test code = POCTCO2) 29.0 22-29 N POC ARTERIAL BLOOD GAS PO2 (test code = HHOEI6O) 120.6 mmHg 80-100.0 H POC HCO3 ARTERIAL (test code = JAYRUW0I) 27.4 MMOL/L 22.0-26.0 H POC BASE EXCESS (test code = POCBEA) 1.6 MMOL/L See_Comment N [Automated messa ge] The system which generated this result transmitted reference range: 0-+/-4. The reference range was not used to interpret this result as normal/abnormal. POC O2 SATURATION (test code = POCO2S) 98.4 % 90-100 N ABG DELIVERY (test code = ESTHER) Cannula ABG TEMPERATURE (test code = TEMPA) 98.4 F ABG SITE (test code = SITEA) Art Line BASIC METABOLIC [id number] 19:50:00* Test Item Value Reference Range Interpretation Comme nts SODIUM (test code = NA/ABG) 145 mmol/L 134-147 N POTASSIUM (test code = K/ABG) 4.2 mmol/L 3.4-5.0 N CHLORIDE (test code = CL/ABG) 110 mmol/L 100-108 H CREATININE ABG (test code = CREAABG) 0.6 mg/dL 0.6-1.3 N POC IONIZED CALCIUM (test co de = POCCA) 1.38 MMOL/L 1.12-1.32 H POC GLUCOSE (test code = POCGLU) 152 MG/DL 70-110 H HEMOGLOBIN [id number] 19:50:00* Test Item Value Reference Range Interpretation Comme nts HEMOGLOBIN ABG (test code = HGB/ABG) 8.7 G/DL 11.0-15.0 L [id number] 19:50:00* Test Item Value Reference Range Interpretation Comme nts HEMATOCRIT (test code = HCT/ABG) 25 % 33-45 L BASIC METABOLIC [id number] 19:26:00* Test Item Value Reference Range Interpretation Comme nts SODIUM (test code = NA) 142 mEq/L 134-147 N POTASSIUM (test code = K) 4.4 mEq/L 3.4-5.0 N CHLORIDE (test code = CL) 113 mEq/L 100-108 H CARBON DIOXIDE (test code = CO2) 25 mEq/l 21-33 N ANION GAP (test code = GAP) 8 0-20 N GLUCOSE (test code = GLU) 136 mg/dL 77-141 BLOOD UREA NITROGEN (test code = BUN) 13 mg/dL 7-25 N GLOMERULAR FILTRATION RATE (test code = GFR) 107.9 90-95 H The Glomerular Filtration Rate is a calculated parameterbased on serum Creatinine, patient age and sex. GFR valuesless than 60 mL/min/1.73 square meters are indicative ofChronic Kidney Disease. Values less than 15 mL/min/1.73square meters indicate Kidney failure. The calculation forGFR is based on the CKD-EPI (2020) calculation. This formulais race indifferent and is the recommended formula for GFRby the National Kidney Foundation for Adults.The GFR will not calculate if the sex is unknown or if thepatient's age is <18 years. CREATININE (test code = CREAT) 0.6 mg/dL 0.6-1.3 N CALCIUM (test code = CA) 8.4 mg/dL 8.0-10.5 N COMMENTS: On arrivalComment: On [id number] 19:26:00* Test Item Value Reference Range Interpretation Comme nts MAGNESIUM (test code = MAG) 2.30 mg/dL 1.6-2.6 COMMENTS: On arrivalComment: On arrivalPROTHROMBIN [id number] 19:16:00* Test Item Value Reference Range Interpretation Comme [facility] PROTHROMBIN TIME PATIENT (test code = PTP) 15.3 SECONDS 9.3-12.9 H INTERNATIONAL NORMAL RATIO (test code = INR) 1.4 0.8-1.2 H TARGET INR BY INDICATION Indication INR1. Prophylaxis of venous thrombosis 2.0 - 3.0 (orthopedic surgery), Prophylaxis of venous thrombosis (other than high-risk surgery), Treatment of Deep Vein Thrombosis/Pulmonary Embolism, Prevention of systemic embolism - Tissue heart valves, Acute Myocardial Infarction (to prevent systemic embolism), Valvular heart disease, Atrial Fibrillation, Bileaflet mechanical valve in aortic position.2. Mechanical prosthetic valves (high risk), 2.5 - 3.5 Presence of Lupus Anticoagulant or Antiphospholipid Antibodies, Prevention of systemic embolism - Acute Myocardial Infarction (to prevent recurrent infarct). COMMENTS: On arrivalTHROMBOPLASTIN TIME [id number] 19:16:00* Test Item Value Reference Range Interpretation [facility] TIME PARTIAL (test code = PTT) 25.1 Seconds 25.0-39.5 Therapeutic Rang e: 58.8 - 96.0 Seconds Effective 06/15/2024 COMMENTS: On arrivalCBC W/AUTO [id number] 18:46:00* Test Item Value Reference Range Interpretation Comme [facility] WHITE BLOOD CELL (test code = WBC) 18.3 x10 3/uL 4.5-11.0 H RED BLOOD CELL (test code = RBC) 3.23 x10 6/uL 3.54-5.02 L HEMOGLOBIN (test code = HGB) 8.0 g/dL 11.0-15.0 L HEMATOCRIT (test code = HCT) 26.2 % 33.0-45.0 L MEAN CELL VOLUME (test code = MCV) 81.1 fL 81.0-99.0 N MEAN CELL HGB (test code = MCH) 24.8 pg 27.0-33.0 L MEAN CELL HGB CONCETRATION (test code = MCHC) 30.5 g/dL 33.0-37.0 L RED CELL DISTRIBUTION WIDTH CV (test code = RDW) 16.7 % 11.5-14.5 H RED CELL DISTRIBUTION WIDTH SD (test code = RDW-SD) 48.8 fL 37.0-54.0 N PLATELET COUNT (test code = PLT) 151 x10 3/uL 150-400 N MEAN PLATELET VOLUME (test code = MPV) 10.9 fL 7.0-9.0 H NEUTROPHIL % (test code = NT%) 87.5 % 56.0-77.0 H IMMATURE GRANULOCYTE % (test code = IG%) 0.7 % 0.0-2.0 N LYMPHOCYTE % (test code = LY%) 6.1 % 14.0-32.0 L MONOCYTE % (test code = MO%) 4.6 % 4.8-9.0 L EOSINOPHIL % (test code = EO%) 0.8 % 0.3-3.7 N BASOPHIL % (test code = BA%) 0.3 % 0.0-2.0 N NUCLEATED RBC % (test code = NRBC%) 0.0 % 0-0 N NEUTROPHIL # (test code = NT#) 15.97 x10 3/uL 2.0-7.6 H IMMATURE GRANULOCYTE # (test code = IG#) 0.13 x10 3/uL 0.00-0.03 H LYMPHOCYTE # (test code = LY#) 1.12 x10 3/uL 1.0-3.8 N MONOCYTE # (test code = MO#) 0.84 x10 3/uL 0.1-0.8 H EOSINOPHIL # (test code = EO#) 0.15 x10 3/uL 0.0-0.2 N BASOPHIL # (test code = BA#) 0.05 x10 3/uL 0.0-0.2 N NUCLEATED RBC # (test code = NRBC#) 0.00 x10 3/uL 0.0-0.1 N [facility] [id number] 18:38:00* Test Item Value Reference Range Interpretation Comme nts POC ARTERIAL BLOOD GAS PH (test code = POCPHA) 7.310 7.35-7.45 L POC ARTERIAL BLOOD GAS PCO2 (test code = OYIMAD7H) 60.3 mmHg 35.0-45 HH POC TCO2 ARTERIAL (test code = POCTCO2) 32.2 22-29 H POC ARTERIAL BLOOD GAS PO2 (test code = NRNEO6S) 115.3 mmHg 80-100.0 H POC HCO3 ARTERIAL (test code = LRTMAB4Q) 30.4 MMOL/L 22.0-26.0 HH POC BASE EXCESS (test code = POCBEA) 4.1 MMOL/L See_Comment H [Automated messa ge] The system which generated this result transmitted reference range: 0-+/-4. The reference range was not used to interpret this result as normal/abnormal. POC O2 SATURATION (test code = POCO2S) 97.9 % 90-100 N FIO2 (test code = FIO2A) 60.0 % PaO2/FiO2 (test code = [id number]) 192.10 mm/Hg ABG DELIVERY (test code = ESTHER) simple mask ABG TEMPERATURE (test code = TEMPA) 98.4 F ABG SITE (test code = SITEA) Art Line TERESO'S TEST (test code = ALLENS) N/A BASIC METABOLIC [id number] 18:38:00* Test Item Value Reference Range Interpretation Comme nts SODIUM (test code = NA/ABG) 146 mmol/L 134-147 N POTASSIUM (test code = K/ABG) 4.4 mmol/L 3.4-5.0 N CHLORIDE (test code = CL/ABG) 110 mmol/L 100-108 H CREATININE ABG (test code = CREAABG) 0.6 mg/dL 0.6-1.3 N POC IONIZED CALCIUM (test co de = POCCA) 1.45 MMOL/L 1.12-1.32 H POC GLUCOSE (test code = POCGLU) 151 MG/DL 70-110 H HEMOGLOBIN [id number] 18:38:00* Test Item Value Reference Range Interpretation Comme nts HEMOGLOBIN ABG (test code = HGB/ABG) 8.3 G/DL 11.0-15.0 L [id number] 18:38:00* Test Item Value Reference Range Interpretation Comme nts HEMATOCRIT (test code = HCT/ABG) 24 % 33-45 L POC LACTIC [id number] 18:38:00* Test Item Value Reference Range Interpretation Comme nts POC LACTIC ACID (test code = POCLAC) 1.6 mmol/l 0.9-1.7 N [id number] 17:44:00* Test Item Value Reference Range Interpretation Comme nts ACT-ISTAT (test code = ACTI) 106 SEC 74-137 N Performed by cer tified power plant operators supervisor at [facility] POC ARTERIAL BLOOD [id number] 17:41:00* Test Item Value Reference Range Interpretation Comme nts POC ARTERIAL BLOOD GAS PH (test code = POCPHA) 7.448 7.35-7.45 N POC ARTERIAL BLOOD GAS PCO2 (test code = UKMXLI9P) 34.2 mmHg 35.0-45 L POC TCO2 ARTERIAL (test code = POCTCO2) 24.7 22-29 N POC ARTERIAL BLOOD GAS PO2 (test code = WSPRT6M) 99.5 mmHg 80-100.0 N POC HCO3 ARTERIAL (test code = DSSEOF8V) 23.7 MMOL/L 22.0-26.0 N POC BASE EXCESS (test code = POCBEA) -0.2 MMOL/L See_Comment L [Automated messa ge] The system which generated this result transmitted reference range: 0-+/-4. The reference range was not used to interpret this result as normal/abnormal. POC O2 SATURATION (test code = POCO2S) 98.1 % 90-100 N BASIC METABOLIC [id number] 17:41:00* Test Item Value Reference Range Interpretation Comme nts SODIUM (test code = NA/ABG) 146 mmol/L 134-147 N POTASSIUM (test code = K/ABG) 3.7 mmol/L 3.4-5.0 N CHLORIDE (test code = CL/ABG) 112 mmol/L 100-108 H CREATININE ABG (test code = CREAABG) 0.5 mg/dL 0.6-1.3 L POC IONIZED CALCIUM (test co de = POCCA) 1.35 MMOL/L 1.12-1.32 H POC GLUCOSE (test code = POCGLU) 139 MG/DL 70-110 H HEMOGLOBIN [id number] 17:41:00* Test Item Value Reference Range Interpretation Comme nts HEMOGLOBIN ABG (test code = HGB/ABG) 7.4 G/DL 11.0-15.0 L [id number] 17:41:00* Test Item Value Reference Range Interpretation Comme nts HEMATOCRIT (test code = HCT/ABG) 22 % 33-45 L POC LACTIC [id number] 17:41:00* Test Item Value Reference Range Interpretation Comme nts POC LACTIC ACID (test code = POCLAC) 1.9 mmol/l 0.9-1.7 H [id number] 17:30:00* Test Item Value Reference Range Interpretation Comme nts ACT-ISTAT (test code = ACTI) 579 SEC 74-137 H Performed by cer rubiaied power plant operators supervisor at [facility] POC ARTERIAL BLOOD [id number] 17:22:00* Test Item Value Reference Range Interpretation Comme nts POC ARTERIAL BLOOD GAS PH (test code = POCPHA) 7.386 7.35-7.45 N POC ARTERIAL BLOOD GAS PCO2 (test code = ZXLJJF9K) 42.2 mmHg 35.0-45 N POC TCO2 ARTERIAL (test code = POCTCO2) 26.6 22-29 N POC ARTERIAL BLOOD GAS PO2 (test code = IKAXV3L) 477.9 mmHg 80-100.0 HH POC HCO3 ARTERIAL (test code = EMVLFM9G) 25.3 MMOL/L 22.0-26.0 N POC BASE EXCESS (test code = POCBEA) 0.2 MMOL/L See_Comment N [Automated messa ge] The system which generated this result transmitted reference range: 0-+/-4. The reference range was not used to interpret this result as normal/abnormal. POC O2 SATURATION (test code = POCO2S) 100.0 % 90-100 N BASIC METABOLIC [id number] 17:22:00* Test Item Value Reference Range Interpretation Comme nts SODIUM (test code = NA/ABG) 143 mmol/L 134-147 N POTASSIUM (test code = K/ABG) 4.7 mmol/L 3.4-5.0 N CHLORIDE (test code = CL/ABG) 105 mmol/L 100-108 N CREATININE ABG (test code = CREAABG) 0.6 mg/dL 0.6-1.3 N POC IONIZED CALCIUM (test co de = POCCA) 1.19 MMOL/L 1.12-1.32 N POC GLUCOSE (test code = POCGLU) 138 MG/DL 70-110 H HEMOGLOBIN [id number] 17:22:00* Test Item Value Reference Range Interpretation Comme nts HEMOGLOBIN ABG (test code = HGB/ABG) 7.9 G/DL 11.0-15.0 L [id number] 17:22:00* Test Item Value Reference Range Interpretation Comme nts HEMATOCRIT (test code = HCT/ABG) 23 % 33-45 L POC LACTIC [id number] 17:22:00* Test Item Value Reference Range Interpretation Comme nts POC LACTIC ACID (test code = POCLAC) 1.5 mmol/l 0.9-1.7 N [id number] 17:03:00* Test Item Value Reference Range Interpretation Comme nts ACT-ISTAT (test code = ACTI) 458 SEC 74-137 H Performed by cer tified power plant operators supervisor at [facility] POC ARTERIAL BLOOD [id number] 16:53:00* Test Item Value Reference Range Interpretation Comme nts POC ARTERIAL BLOOD GAS PH (test code = POCPHA) 7.390 7.35-7.45 N POC ARTERIAL BLOOD GAS PCO2 (test code = UHXCDR8Y) 42.1 mmHg 35.0-45 N POC TCO2 ARTERIAL (test code = POCTCO2) 26.8 22-29 N POC ARTERIAL BLOOD GAS PO2 (test code = TAVUB3S) 407.2 mmHg 80-100.0 HH POC HCO3 ARTERIAL (test code = AWBKMO5H) 25.5 MMOL/L 22.0-26.0 N POC BASE EXCESS (test code = POCBEA) 0.5 MMOL/L See_Comment N [Automated messa ge] The system which generated this result transmitted reference range: 0-+/-4. The reference range was not used to interpret this result as normal/abnormal. POC O2 SATURATION (test code = POCO2S) 100.0 % 90-100 N BASIC METABOLIC [id number] 16:53:00* Test Item Value Reference Range Interpretation Comme nts SODIUM (test code = NA/ABG) 141 mmol/L 134-147 N POTASSIUM (test code = K/ABG) 4.1 mmol/L 3.4-5.0 N CHLORIDE (test code = CL/ABG) 104 mmol/L 100-108 N CREATININE ABG (test code = CREAABG) 0.6 mg/dL 0.6-1.3 N POC IONIZED CALCIUM (test co de = POCCA) 1.19 MMOL/L 1.12-1.32 N POC GLUCOSE (test code = POCGLU) 147 MG/DL 70-110 H HEMOGLOBIN [id number] 16:53:00* Test Item Value Reference Range Interpretation Comme nts HEMOGLOBIN ABG (test code = HGB/ABG) 6.9 G/DL 11.0-15.0 L [id number] 16:53:00* Test Item Value Reference Range Interpretation Comme nts HEMATOCRIT (test code = HCT/ABG) 20 % 33-45 L POC LACTIC [id number] 16:53:00* Test Item Value Reference Range Interpretation Comme nts POC LACTIC ACID (test code = POCLAC) 1.5 mmol/l 0.9-1.7 N [id number] 16:30:00* Test Item Value Reference Range Interpretation Comme nts ACT-ISTAT (test code = ACTI) 619 SEC 74-137 H Performed by cer tified power plant operators supervisor at [facility] POC ARTERIAL BLOOD [id number] 16:22:00* Test Item Value Reference Range Interpretation Comme nts POC ARTERIAL BLOOD GAS PH (test code = POCPHA) 7.463 7.35-7.45 H POC ARTERIAL BLOOD GAS PCO2 (test code = ZWIIQQ5X) 40.0 mmHg 35.0-45 N POC TCO2 ARTERIAL (test code = POCTCO2) 29.8 22-29 H POC ARTERIAL BLOOD GAS PO2 (test code = GXLNK8K) 449.1 mmHg 80-100.0 HH POC HCO3 ARTERIAL (test code = FLPRQI4T) 28.6 MMOL/L 22.0-26.0 HH POC BASE EXCESS (test code = POCBEA) 4.4 MMOL/L See_Comment H [Automated messa ge] The system which generated this result transmitted reference range: 0-+/-4. The reference range was not used to interpret this result as normal/abnormal. POC O2 SATURATION (test code = POCO2S) 100.0 % 90-100 N BASIC METABOLIC [id number] 16:22:00* Test Item Value Reference Range Interpretation Comme nts SODIUM (test code = NA/ABG) 144 mmol/L 134-147 N POTASSIUM (test code = K/ABG) 3.7 mmol/L 3.4-5.0 N CHLORIDE (test code = CL/ABG) 104 mmol/L 100-108 N CREATININE ABG (test code = CREAABG) 0.6 mg/dL 0.6-1.3 N POC IONIZED CALCIUM (test co de = POCCA) 1.14 MMOL/L 1.12-1.32 N POC GLUCOSE (test code = POCGLU) 160 MG/DL 70-110 H HEMOGLOBIN [id number] 16:22:00* Test Item Value Reference Range Interpretation Comme nts HEMOGLOBIN ABG (test code = HGB/ABG) 7.3 G/DL 11.0-15.0 L [id number] 16:22:00* Test Item Value Reference Range Interpretation Comme nts HEMATOCRIT (test code = HCT/ABG) 22 % 33-45 L POC LACTIC [id number] 16:22:00* Test Item Value Reference Range Interpretation Comme nts POC LACTIC ACID (test code = POCLAC) 0.9 mmol/l 0.9-1.7 N [id number] 16:01:00* Test Item Value Reference Range Interpretation Comme nts ACT-ISTAT (test code = ACTI) 498 SEC 74-137 H Performed by cer tified power plant operators supervisor at [facility] POC ARTERIAL BLOOD [id number] 15:55:00* Test Item Value Reference Range Interpretation Comme nts POC ARTERIAL BLOOD GAS PH (test code = POCPHA) 7.429 7.35-7.45 N POC ARTERIAL BLOOD GAS PCO2 (test code = QIKUCI6G) 39.3 mmHg 35.0-45 N POC TCO2 ARTERIAL (test code = POCTCO2) 27.3 22-29 N POC ARTERIAL BLOOD GAS PO2 (test code = XYGLK3T) 229.4 mmHg 80-100.0 HH POC HCO3 ARTERIAL (test code = KDDQST7Q) 26.1 MMOL/L 22.0-26.0 H POC BASE EXCESS (test code = POCBEA) 1.6 MMOL/L See_Comment N [Automated messa ge] The system which generated this result transmitted reference range: 0-+/-4. The reference range was not used to interpret this result as normal/abnormal. POC O2 SATURATION (test code = POCO2S) 99.8 % 90-100 N BASIC METABOLIC [id number] 15:55:00* Test Item Value Reference Range Interpretation Comme nts SODIUM (test code = NA/ABG) 142 mmol/L 134-147 N POTASSIUM (test code = K/ABG) 4.2 mmol/L 3.4-5.0 N CHLORIDE (test code = CL/ABG) 106 mmol/L 100-108 N CREATININE ABG (test code = CREAABG) 0.4 mg/dL 0.6-1.3 L POC IONIZED CALCIUM (test co de = POCCA) 1.22 MMOL/L 1.12-1.32 N POC GLUCOSE (test code = POCGLU) 195 MG/DL 70-110 H HEMOGLOBIN [id number] 15:55:00* Test Item Value Reference Range Interpretation Comme nts HEMOGLOBIN ABG (test code = HGB/ABG) 8.8 G/DL 11.0-15.0 L [id number] 15:55:00* Test Item Value Reference Range Interpretation Comme nts HEMATOCRIT (test code = HCT/ABG) 26 % 33-45 L POC LACTIC [id number] 15:55:00* Test Item Value Reference Range Interpretation Comme nts POC LACTIC ACID (test code = POCLAC) 0.7 mmol/l 0.9-1.7 L [id number] 15:03:00* Test Item Value Reference Range Interpretation Comme nts ACT-ISTAT (test code = ACTI) 135 SEC 74-137 N Performed by cer tified power plant operators supervisor at [facility] POC ARTERIAL BLOOD [id number] 14:54:00* Test Item Value Reference Range Interpretation Comme nts POC ARTERIAL BLOOD GAS PH (test code = POCPHA) 7.422 7.35-7.45 N POC ARTERIAL BLOOD GAS PCO2 (test code = WOBVDR9X) 38.5 mmHg 35.0-45 N POC TCO2 ARTERIAL (test code = POCTCO2) 26.3 22-29 N POC ARTERIAL BLOOD GAS PO2 (test code = YOWOO5C) 545.9 mmHg 80-100.0 HH POC HCO3 ARTERIAL (test code = XNZWLK3Z) 25.1 MMOL/L 22.0-26.0 N POC BASE EXCESS (test code = POCBEA) 0.7 MMOL/L See_Comment N [Automated messa ge] The system which generated this result transmitted reference range: 0-+/-4. The reference range was not used to interpret this result as normal/abnormal. POC O2 SATURATION (test code = POCO2S) 100.0 % 90-100 N BASIC METABOLIC [id number] 14:54:00* Test Item Value Reference Range Interpretation Comme nts SODIUM (test code = NA/ABG) 145 mmol/L 134-147 N POTASSIUM (test code = K/ABG) 3.8 mmol/L 3.4-5.0 N CHLORIDE (test code = CL/ABG) 108 mmol/L 100-108 N CREATININE ABG (test code = CREAABG) 0.5 mg/dL 0.6-1.3 L POC IONIZED CALCIUM (test co de = POCCA) 1.19 MMOL/L 1.12-1.32 N POC GLUCOSE (test code = POCGLU) 195 MG/DL 70-110 H HEMOGLOBIN [id number] 14:54:00* Test Item Value Reference Range Interpretation Comme nts HEMOGLOBIN ABG (test code = HGB/ABG) 8.3 G/DL 11.0-15.0 L [id number] 14:54:00* Test Item Value Reference Range Interpretation Comme nts HEMATOCRIT (test code = HCT/ABG) 24 % 33-45 L POC LACTIC [id number] 14:54:00* Test Item Value Reference Range Interpretation Comme nts POC LACTIC ACID (test code = POCLAC) < 0.3 mmol/l 0.9-1.7 L HCG SERUM [id number] 13:40:00* Test Item Value Reference Range Interpretation Comme nts HCG SERUM QUAL (test code = HCGQL) SERUM NEGATIVE NEGATIVE GLUCOSE [id number] 09:48:00* Test Item Value Reference Range Interpretation Comme nts GLUCOSE BEDSIDE (test code = GLUBED) 265 MG/DL 70-110 H Performed by cer tified power plant operators supervisor at [facility] BASIC METABOLIC [id number] 02:20:00* Test Item Value Reference Range Interpretation Comme nts SODIUM (test code = NA) 141 mEq/L 134-147 N POTASSIUM (test code = K) 3.8 mEq/L 3.4-5.0 CHLORIDE (test code = CL) 108 mEq/L 100-108 N CARBON DIOXIDE (test code = CO2) 31 mEq/l 21-33 N ANION GAP (test code = GAP) 6 0-20 N GLUCOSE (test code = GLU) 233 mg/dL 77-141 H BLOOD UREA NITROGEN (test code = BUN) 12 mg/dL 7-25 N GLOMERULAR FILTRATION RATE (test code = GFR) 76.9 90-95 L The Glomerular Filtration Rate is a calculated parameterbased on serum Creatinine, patient age and sex. GFR valuesless than 60 mL/min/1.73 square meters are indicative ofChronic Kidney Disease. Values less than 15 mL/min/1.73square meters indicate Kidney failure. The calculation forGFR is based on the CKD-EPI (2020) calculation. This formulais race indifferent and is the recommended formula for GFRby the National Kidney Foundation for Adults.The GFR will not calculate if the sex is unknown or if thepatient's age is <18 years. CREATININE (test code = CREAT) 0.9 mg/dL 0.6-1.3 N CALCIUM (test code = CA) 8.6 mg/dL 8.0-10.5 N [id number] 02:20:00* Test Item Value Reference Range Interpretation Comme nts MAGNESIUM (test code = MAG) 1.83 mg/dL 1.6-2.6 N PROTHROMBIN [id number] 02:13:00* Test Item Value Reference Range Interpretation Comme nts PROTHROMBIN TIME PATIENT (test code = PTP) 13.5 SECONDS 9.3-12.9 H INTERNATIONAL NORMAL RATIO (test code = INR) 1.2 0.8-1.2 N TARGET INR BY INDICATION Indication INR1. Prophylaxis of venous thrombosis 2.0 - 3.0 (orthopedic surgery), Prophylaxis of venous thrombosis (other than high-risk surgery), Treatment of Deep Vein Thrombosis/Pulmonary Embolism, Prevention of systemic embolism - Tissue heart valves, Acute Myocardial Infarction (to prevent systemic embolism), Valvular heart disease, Atrial Fibrillation, Bileaflet mechanical valve in aortic position.2. Mechanical prosthetic valves (high risk), 2.5 - 3.5 Presence of Lupus Anticoagulant or Antiphospholipid Antibodies, Prevention of systemic embolism - Acute Myocardial Infarction (to prevent recurrent infarct). THROMBOPLASTIN TIME [id number] 02:13:00* Test Item Value Reference Range Interpretation Comme nts THROMBOPLASTIN TIME PARTIAL (test code = PTT) 52.0 Seconds 25.0-39.5 H Therapeutic Rang e: 58.8 - 96.0 Seconds Effective 06/15/2024 CBC W/AUTO [id number] 01:52:00* Test Item Value Reference Range Interpretation Comme nts WHITE BLOOD CELL (test code = WBC) 6.2 x10 3/uL 4.5-11.0 N RED BLOOD CELL (test code = RBC) 3.63 x10 6/uL 3.54-5.02 N HEMOGLOBIN (test code = HGB) 8.6 g/dL 11.0-15.0 L HEMATOCRIT (test code = HCT) 28.7 % 33.0-45.0 L MEAN CELL VOLUME (test code = MCV) 79.1 fL 81.0-99.0 L MEAN CELL HGB (test code = MCH) 23.7 pg 27.0-33.0 L MEAN CELL HGB CONCETRATION (test code = MCHC) 30.0 g/dL 33.0-37.0 L RED CELL DISTRIBUTION WIDTH CV (test code = RDW) 16.5 % 11.5-14.5 H RED CELL DISTRIBUTION WIDTH SD (test code = RDW-SD) 46.3 fL 37.0-54.0 N PLATELET COUNT (test code = PLT) 146 x10 3/uL 150-400 L MEAN PLATELET VOLUME (test c ode = MPV) 11.0 fL 7.0-9.0 H NEUTROPHIL % (test code = NT%) 58.1 % 56.0-77.0 N IMMATURE GRANULOCYTE % (test code = IG%) 0.3 % 0.0-2.0 N LYMPHOCYTE % (test code = LY%) 29.6 % 14.0-32.0 N MONOCYTE % (test code = MO%) 9.2 % 4.8-9.0 H EOSINOPHIL % (test code = EO%) 2.3 % 0.3-3.7 N BASOPHIL % (test code = BA%) 0.5 % 0.0-2.0 N NUCLEATED RBC % (test code = NRBC%) 0.0 % 0-0 N NEUTROPHIL # (test code = NT#) 3.59 x10 3/uL 2.0-7.6 N IMMATURE GRANULOCYTE # (test code = IG#) 0.02 x10 3/uL 0.00-0.03 N LYMPHOCYTE # (test code = LY#) 1.83 x10 3/uL 1.0-3.8 N MONOCYTE # (test code = MO#) 0.57 x10 3/uL 0.1-0.8 N EOSINOPHIL # (test code = EO#) 0.14 x10 3/uL 0.0-0.2 N BASOPHIL # (test code = BA#) 0.03 x10 3/uL 0.0-0.2 N NUCLEATED RBC # (test code = NRBC#) 0.00 x10 3/uL 0.0-0.1 N COMMENTS: Daily while on heparin dripGLUCOSE [id number] 21:41:00* Test Item Value Reference Range Interpretation Comme nts GLUCOSE BEDSIDE (test code = GLUBED) 370 MG/DL 70-110 H Performed by cer tified power plant operators supervisor at [facility] THROMBOPLASTIN TIME [id number] 18:00:00* Test Item Value Reference Range Interpretation Comme nts THROMBOPLASTIN TIME PARTIAL (test code = PTT) 47.9 Seconds 25.0-39.5 H Therapeutic Rang e: 58.8 - 96.0 Seconds Effective 06/15/2024 GLUCOSE [id number] 17:35:00* Test Item Value Reference Range Interpretation Comme nts GLUCOSE BEDSIDE (test code = GLUBED) 126 MG/DL 70-110 H Performed by cer tified power plant operators supervisor at [facility] GLUCOSE [id number] 13:11:00* Test Item Value Reference Range Interpretation Comme nts GLUCOSE BEDSIDE (test code = GLUBED) 334 MG/DL 70-110 H Performed by cer tified power plant operators supervisor at [facility] GLUCOSE [id number] 13:11:00* Test Item Value Reference Range Interpretation Comme nts GLUCOSE BEDSIDE (test code = GLUBED) 334 MG/DL 70-110 H Performed by cer tified power plant operators supervisor at [facility] TROP-I HIGH [id number] 11:09:00* Test Item Value Reference Range Interpretation Comme [facility] TROP-I HIGH SENSITIVITY (test code = TROPIHS) 1298 ng/L 0-34 HH CAUTION: Units o f the current test methodology (ng/L) differfrom the prior test methodology (ng/mL) by a factor of 1000. 99th Percentile Upper Reference Limit (URL): Females: 34 ng/LMales: 54 ng/L In order to distinguish acute elevations of high sensitivitytroponin from other clinical conditions, the FourthUniversal Definition of Myocardial Infarction stressesclinical assessment and the demonstration of a rise and/orfall in serial troponin results above the URL. These results were obtained using [employer] IM TnIHreagent. Results from different methodologies should not becompared to one another as quantitative results and URLs mayvary by method. THROMBOPLASTIN TIME [id number] 11:08:00* Test Item Value Reference Range Interpretation Comme [facility] THROMBOPLASTIN TIME PARTIAL (test code = PTT) 32.6 Seconds 25.0-39.5 N Therapeutic Rang e: 58.8 - 96.0 Seconds Effective 06/15/2024 GLUCOSE [id number] 09:30:00* Test Item Value Reference Range Interpretation Comme nts GLUCOSE BEDSIDE (test code = GLUBED) 209 MG/DL 70-110 H Performed by cer [employer] plant operators supervisor at [facility] UA RFLX MICR CULT IF [id number] 08:28:00* Test Item Value Reference Range Interpretation Comme nts UA COLOR (test code = COLU) YELLOW YEL/STRAW UA APPEARANCE (test code = APPU) CLEAR CLEAR UA GLUCOSE DIPSTICK (test co de = DGLUU) NEGATIVE NEGATIVE UA BILIRUBIN DIPSTICK (test code = BILU) NEGATIVE NEGATIVE UA KETONE DIPSTICK (test cod e = KETU) NEGATIVE NEGATIVE UA SPECIFIC GRAVITY (test co de = SGU) 1.024 1.005-1.030 N UA BLOOD DIPSTICK (test code = LAINA) NEGATIVE NEGATIVE UA PH DIPSTICK (test code = ALCIDES) 8.0 5.0-7.0 H UA PROTEIN DIPSTICK (test co de = PROU) NEGATIVE NEGATIVE UA UROBILINIOGEN DIPSTICK (test code = URO) 4.0 mg/dL 0.2-1.0 A UA NITRITE DIPSTICK (test co de = DEMI) NEGATIVE NEGATIVE UA LEUKOCYTE ESTERASE DIPSTI CK (test code = LEUU) NEGATIVE NEGATIVE UA WBC (test code = WBCU) 0-3 WBC/HPF 0-3 UA RBC (test code = RBCU) 0-3 RBC/HPF 0-3 UA WBC NO REFLEX (test code = WBCUCL) 0-3 WBC/HPF 0-3 UA BACTERIA (test code = BACU) NONE SEEN /HPF NONE SEEN UA SQUAMOUS CELLS (test code = SQU) 0-5 /HPF NONE SEEN Indication for culture: Flank PainSpecimen Description: CLEAN CATCHB-TYPE NATRIURETIC [id number] 07:52:00* Test Item Value Reference Range Interpretation Comme nts B-TYPE NATRIURETIC PEPTIDE ( test code = BNP) 687.0 PG/ML 0-100 H COMPREHENSIVE METABOLIC [id number] 07:43:00* Test Item Value Reference Range Interpretation Comme nts SODIUM (test code = NA) 137 mEq/L 134-147 N POTASSIUM (test code = K) 3.0 mEq/L 3.4-5.0 L CHLORIDE (test code = CL) 107 mEq/L 100-108 N CARBON DIOXIDE (test code = CO2) 31 mEq/l 21-33 N ANION GAP (test code = GAP) 2 0-20 N GLUCOSE (test code = GLU) 205 mg/dL 77-141 H BLOOD UREA NITROGEN (test code = BUN) 9 mg/dL 7-25 N GLOMERULAR FILTRATION RATE (test code = GFR) 107.9 90-95 H The Glomerular Filtration Rate is a calculated parameterbased on serum Creatinine, patient age and sex. GFR valuesless than 60 mL/min/1.73 square meters are indicative ofChronic Kidney Disease. Values less than 15 mL/min/1.73square meters indicate Kidney failure. The calculation forGFR is based on the CKD-EPI (202) calculation. This formulais race indifferent and is the recommended formula for GFRby the National Kidney Foundation for Adults.The GFR will not calculate if the sex is unknown or if thepatient's age is <18 years. CREATININE (test code = CREAT) 0.6 mg/dL 0.6-1.3 N TOTAL PROTEIN (test code = PROT) 6.4 g/dL 5.7-8.2 N Note change in REFERENCE RANGE due to change in REAGENT. ALBUMIN (test code = ALB) 3.10 g/dL 3.4-5.0 L CALCIUM (test code = CA) 8.6 mg/dL 8.0-10.5 N BILIRUBIN TOTAL (test code = BILT) 0.50 mg/dL 0.0-1.0 N SGOT/AST (test code = AST) 15 IUnit/L 8-34 N SGPT/ALT (test code = ALT) 9 IUnit/L 10-49 L ALKALINE PHOSPHATASE TOTAL (test code = ALKP) 99 IUnit/L 20-125 N LIPID PROFILE (CORONARY RISK)2024-11-08 07:43:00* Test Item Value Reference Range Interpretation Comme nts TRIGLYCERIDES (test code = TRIG) 85 mg/dL 40-150 N CHOLESTEROL (test code = CHOL) 165 mg/dL <200 CHOLESTEROL/HDL RATIO (test code = CHOLHDL) 3.70 RATIO 3.27-4.44 N RISK ASSOCIATED WITH CHOL/HDL RATIOS: RISK MALE FEMALE1/2 AVERAGE 3.43 3.27AVERAGE 4.97 4.442X AVERAGE 9.55 7.053X AVERAGE 23.39 11.04 NOTE THAT THE REFERENCE VALUE IS RELATEDTO RISK LEVELS RECOMMENDED BY THE NATL.HEART, LUNG, AND BLOOD INST. HDL CHOLESTEROL (test code = HDL) 44.6 MG/DL 40-60 N HDL Interpreta tion < 40.0 mg/dL Low (undesirable, high risk)> 60.0 mg/dL High (desirable, low risk) Reference interval for healthy adults was established by theNational Cholesterol Education Program (NCEP). LIPOPROTEIN LDL (test code = LDL) 112.0 mg/dL 0-100 H <100 EIBAANA34 0-129 NEAR OPTIMAL/ABOVE [id number] HIGH>MU=161 VERY HIGH*Guidelines provided by the National Cholesterol EducationProgram Adult Treatment Panel III TROP-I HIGH [id number] 07:43:00* Test Item Value Reference Range Interpretation Comme nts TROP-I HIGH SENSITIVITY (test code = TROPIHS) 1148 ng/L 0-34 HH CAUTION: Units o f the current test methodology (ng/L) differfrom the prior test methodology (ng/mL) by a factor of 1000. 99th Percentile Upper Reference Limit (URL): Females: 34 ng/LMales: 54 ng/L In order to distinguish acute elevations of high sensitivitytroponin from other clinical conditions, the FourthUniversal Definition of Myocardial Infarction stressesclinical assessment and the demonstration of a rise and/orfall in serial troponin results above the URL. These results were obtained using [employer] IM TnIHreagent. Results from different methodologies should not becompared to one another as quantitative results and URLs mayvary by method. CBC W/AUTO [id number] 07:20:00* Test Item Value Reference Range Interpretation Comme nts WHITE BLOOD CELL (test code = WBC) 6.8 x10 3/uL 4.5-11.0 N RED BLOOD CELL (test code = RBC) 3.72 x10 6/uL 3.54-5.02 N HEMOGLOBIN (test code = HGB) 9.0 g/dL 11.0-15.0 L HEMATOCRIT (test code = HCT) 28.6 % 33.0-45.0 L MEAN CELL VOLUME (test code = MCV) 76.9 fL 81.0-99.0 L MEAN CELL HGB (test code = MCH) 24.2 pg 27.0-33.0 L MEAN CELL HGB CONCETRATION (test code = MCHC) 31.5 g/dL 33.0-37.0 L RED CELL DISTRIBUTION WIDTH CV (test code = RDW) 16.1 % 11.5-14.5 H RED CELL DISTRIBUTION WIDTH SD (test code = RDW-SD) 44.2 fL 37.0-54.0 N PLATELET COUNT (test code = PLT) 163 x10 3/uL 150-400 N MEAN PLATELET VOLUME (test c ode = MPV) 10.5 fL 7.0-9.0 H NEUTROPHIL % (test code = NT%) 72.4 % 56.0-77.0 N IMMATURE GRANULOCYTE % (test code = IG%) 0.4 % 0.0-2.0 N LYMPHOCYTE % (test code = LY%) 17.5 % 14.0-32.0 N MONOCYTE % (test code = MO%) 7.2 % 4.8-9.0 N EOSINOPHIL % (test code = EO%) 2.2 % 0.3-3.7 N BASOPHIL % (test code = BA%) 0.3 % 0.0-2.0 N NUCLEATED RBC % (test code = NRBC%) 0.0 % 0-0 N NEUTROPHIL # (test code = NT#) 4.95 x10 3/uL 2.0-7.6 N IMMATURE GRANULOCYTE # (test code = IG#) 0.03 x10 3/uL 0.00-0.03 N LYMPHOCYTE # (test code = LY#) 1.20 x10 3/uL 1.0-3.8 N MONOCYTE # (test code = MO#) 0.49 x10 3/uL 0.1-0.8 N EOSINOPHIL # (test code = EO#) 0.15 x10 3/uL 0.0-0.2 N BASOPHIL # (test code = BA#) 0.02 x10 3/uL 0.0-0.2 N NUCLEATED RBC # (test code = NRBC#) 0.00 x10 3/uL 0.0-0.1 N GLUCOSE [id number] 04:05:00* Test Item Value Reference Range Interpretation Comme nts GLUCOSE BEDSIDE (test code = GLUBED) 231 MG/DL 70-110 H Performed by cer rubiaied power plant operators supervisor at [facility] LIPOPROTEIN [id number] 03:44:00* Test Item Value Reference Range Interpretation Comme nts LIPOPROTEIN LDL (test code = LDL) 108.0 mg/dL 0-100 H <100 [id number] 0-129 NEAR OPTIMAL/ABOVE [id number] HIGH>GU=842 VERY HIGH*Guidelines provided by the National Cholesterol EducationProgram Adult Treatment Panel III HEPATIC FUNCTION [id number] 03:30:00* Test Item Value Reference Range Interpretation Comme nts TOTAL PROTEIN (test code = PROT) 6.3 g/dL 5.7-8.2 N Note change in REFERENCE RANGE due to change in REAGENT. ALBUMIN (test code = ALB) 3.10 g/dL 3.4-5.0 L BILIRUBIN TOTAL (test code = BILT) 0.50 mg/dL 0.0-1.0 N BILIRUBIN DIRECT (test code = BILD) 0.10 MG/DL 0.1-0.3 N BILIRUBIN INDIRECT (test code = BILIND) 0.40 MG/DL SGOT/AST (test code = AST) 18 IUnit/L 8-34 N SGPT/ALT (test code = ALT) 10 IUnit/L 10-49 N ALKALINE PHOSPHATASE TOTAL (test code = ALKP) 98 IUnit/L 20-125 N TSH REFLEX TO [id number] 03:30:00* Test Item Value Reference Range Interpretation Comme nts TSH REFLEX TO FT4 (test code = TSHREFLEX) 2.39 IU/mL 0.42-5.47 N TROP-I HIGH [id number] 03:30:00* Test Item Value Reference Range Interpretation Comme nts TROP-I HIGH SENSITIVITY (test code = TROPIHS) 1099 ng/L 0-34 HH Critical result called to TAO Dumas [id number] at 0326 11/08/24Nurse read back result and tech confirmed it's correct? YESCAUTION: Units of the current test methodology (ng/L) differfrom the prior test methodology (ng/mL) by a factor of 1000. 99th Percentile Upper Reference Limit (URL): Females: 34 ng/LMales: 54 ng/L In order to distinguish acute elevations of high sensitivitytroponin from other clinical conditions, the FourthUniversal Definition of Myocardial Infarction stressesclinical assessment and the demonstration of a rise and/orfall in serial troponin results above the URL. These results were obtained using [employer] IM TnIHreagent. Results from different methodologies should not becompared to one another as quantitative results and URLs mayvary by method. BASIC METABOLIC [id number] 03:30:00* Test Item Value Reference Range Interpretation Comme nts SODIUM (test code = NA) 137 mEq/L 134-147 N POTASSIUM (test code = K) 3.1 mEq/L 3.4-5.0 L CHLORIDE (test code = CL) 105 mEq/L 100-108 N CARBON DIOXIDE (test code = CO2) 30 mEq/l 21-33 N ANION GAP (test code = GAP) 5 0-20 N GLUCOSE (test code = GLU) 238 mg/dL 77-141 H BLOOD UREA NITROGEN (test code = BUN) 10 mg/dL 7-25 N GLOMERULAR FILTRATION RATE (test code = GFR) 104.0 90-95 H The Glomerular Filtration Rate is a calculated parameterbased on serum Creatinine, patient age and sex. GFR valuesless than 60 mL/min/1.73 square meters are indicative ofChronic Kidney Disease. Values less than 15 mL/min/1.73square meters indicate Kidney failure. The calculation forGFR is based on the CKD-EPI (2020) calculation. This formulais race indifferent and is the recommended formula for GFRby the National Kidney Foundation for Adults.The GFR will not calculate if the sex is unknown or if thepatient's age is <18 years. CREATININE (test code = CREAT) 0.7 mg/dL 0.6-1.3 N CALCIUM (test code = CA) 8.7 mg/dL 8.0-10.5 N PROTHROMBIN [id number] 03:27:00* Test Item Value Reference Range Interpretation Comme nts PROTHROMBIN TIME PATIENT (test code = PTP) 13.5 SECONDS 9.3-12.9 H INTERNATIONAL NORMAL RATIO (test code = INR) 1.2 0.8-1.2 N TARGET INR BY INDICATION Indication INR1. Prophylaxis of venous thrombosis 2.0 - 3.0 (orthopedic surgery), Prophylaxis of venous thrombosis (other than high-risk surgery), Treatment of Deep Vein Thrombosis/Pulmonary Embolism, Prevention of systemic embolism - Tissue heart valves, Acute Myocardial Infarction (to prevent systemic embolism), Valvular heart disease, Atrial Fibrillation, Bileaflet mechanical valve in aortic position.2. Mechanical prosthetic valves (high risk), 2.5 - 3.5 Presence of Lupus Anticoagulant or Antiphospholipid Antibodies, Prevention of systemic embolism - Acute Myocardial Infarction (to prevent recurrent infarct). COMMENTS: STAT if not done within 24 hours prior to initiation of heparinComment: infusionTHROMBOPLASTIN TIME [id number] 03:27:00* Test Item Value Reference Range Interpretation Comme nts THROMBOPLASTIN TIME PARTIAL (test code = PTT) 27.5 Seconds 25.0-39.5 N Therapeutic Rang e: 58.8 - 96.0 Seconds Effective 06/15/2024 COMMENTS: STAT if not done within 24 hours prior to initiation of heparinComment: [id number] 03:26:00* Test Item Value Reference Range Interpretation Comme nts HGBA1C% (test code = HGBA1C%) 8.0 %A1C 4.8-6.0 H CBC W/AUTO [id number] 03:11:00* Test Item Value Reference Range Interpretation Comme nts WHITE BLOOD CELL (test code = WBC) 6.8 x10 3/uL 4.5-11.0 N RED BLOOD CELL (test code = RBC) 3.63 x10 6/uL 3.54-5.02 N HEMOGLOBIN (test code = HGB) 9.1 g/dL 11.0-15.0 L HEMATOCRIT (test code = HCT) 28.6 % 33.0-45.0 L MEAN CELL VOLUME (test code = MCV) 78.8 fL 81.0-99.0 L MEAN CELL HGB (test code = MCH) 25.1 pg 27.0-33.0 L MEAN CELL HGB CONCETRATION (test code = MCHC) 31.8 g/dL 33.0-37.0 L RED CELL DISTRIBUTION WIDTH CV (test code = RDW) 16.2 % 11.5-14.5 H RED CELL DISTRIBUTION WIDTH SD (test code = RDW-SD) 45.7 fL 37.0-54.0 N PLATELET COUNT (test code = PLT) 159 x10 3/uL 150-400 N MEAN PLATELET VOLUME (test c ode = MPV) 10.4 fL 7.0-9.0 H NEUTROPHIL % (test code = NT%) 70.9 % 56.0-77.0 N IMMATURE GRANULOCYTE % (test code = IG%) 0.3 % 0.0-2.0 N LYMPHOCYTE % (test code = LY%) 21.0 % 14.0-32.0 N MONOCYTE % (test code = MO%) 5.9 % 4.8-9.0 N EOSINOPHIL % (test code = EO%) 1.6 % 0.3-3.7 N BASOPHIL % (test code = BA%) 0.3 % 0.0-2.0 N NUCLEATED RBC % (test code = NRBC%) 0.0 % 0-0 N NEUTROPHIL # (test code = NT#) 4.79 x10 3/uL 2.0-7.6 N IMMATURE GRANULOCYTE # (test code = IG#) 0.02 x10 3/uL 0.00-0.03 N LYMPHOCYTE # (test code = LY#) 1.42 x10 3/uL 1.0-3.8 N MONOCYTE # (test code = MO#) 0.40 x10 3/uL 0.1-0.8 N EOSINOPHIL # (test code = EO#) 0.11 x10 3/uL 0.0-0.2 N BASOPHIL # (test code = BA#) 0.02 x10 3/uL 0.0-0.2 N NUCLEATED RBC # (test code = NRBC#) 0.00 x10 3/uL 0.0-0.1 N COMMENTS: STAT if not done within 24 hours prior to initiation of heparin Comment: infusionHEPATITIS C ANTIBODY [id number] 15:31:00* Test Item Value Reference Range Interpretation Comme nts SCRN HCV (test code = SCRN HCV) NEGATIVE NEGATIVE Hepatitis C Anti body test is for screening purposes only. All reactives will be confirmed by additional testing. ER SCREEN FOR HIV 14:10:00* Test Item Value Reference Range Interpretation Comme nts HIV 1/2 AB (test code = SCRN HIV) NONREACTIVE NONREACTIVE This test is us ed for SCREENING purposes only. All reactive results are prelimenary and confirmation results will follow. ISTAT [id number] [id number] 16:35:00* Test Item Value Reference Range Interpretation Comme nts ISTATNA (test code = ISTATNA) 141 MMOL/L 137-145 ISTATK (test code = ISTATK) 3.9 MMOL/L 3.6-5.0 ISTATCL (test code = ISTATCL) 104 MMOL/L 98-107 ISTIONCA (test code = ISTIONCA) 1.22 MMOL/L 1.12-1.32 ISTCO2 (test code = ISTCO2) 24 MMOL/L 22-30 ISTATGLU (test code = ISTATGLU) 204 MG/DL 65-110 ISTATBUN (test code = ISTATBUN) 12.0 MG/DL 7.0-20.0 ISTCREA (test code = ISTCREA) 0.4 MG/DL 0.7-1.5 ISTATHCT (test code = ISTATHCT) 30 %PCV 37.0-52.0 ISTATHGB (test code = ISTATHGB) 10.2 G/DL 12.0-18.0 ISTANGAP (test code = ISTANGAP) 17 MMOL/L ANTIBODY [id number] 20:23:00* Test Item Value Reference Range Interpretation Comme nts AB ID (test code = ABID) Anti-E [id number] 19:35:00* Test Item Value Reference Range Interpretation Comme nts BLOOD TYPE (test code = TYPE) O Rh Positive ANTIBODY SCREEN (test code = SCREEN) POSITIVE NEGATIVE LIVER [id number] 18:38:00* Test Item Value Reference Range Interpretation Comme nts TOTPROT (test code = TOTPROT) 7.7 G/DL 6.3-8.2 ALBUMIN (test code = ALBSERUM) 4.2 G/DL 3.5-5.0 BILITOT (test code = BILITOT) 0.7 MG/DL 0.2-1.3 BILIDIR (test code = BILIDIR) 0.2 MG/DL 0.0-0.4 AST (test code = AST) 29 U/L 15-46 PHOSALK (test code = PHOSALK) 92 U/L 38-126 ALT (test code = ALT) 33 U/L 13-69 [id number] 18:05:00* Test Item Value Reference Range Interpretation Comme nts PTT (test code = PTT) 33.0 SECONDS 24.4-36.3 HEPARIN THERAPEU TIC RANGE 57-92 SECONDS PROTHROMBIN TIME WITH [id number] 18:05:00* Test Item Value Reference Range Interpretation Comme nts PROTHROMBIN TIME (test code = PT) 14.6 SECONDS 12.0-14.6 INR Usual Range = 2 to 3 for prevention of deep vein thrombosis (DVT) INR (test code = INR) 1.1 [id number] 17:59:00* Test Item Value Reference Range Interpretation Comme nts WBC (test code = WBC) 4.9 K/UL 3.5-10.9 RBC (test code = RBC) 3.72 M/UL 4.0-5.0 L HGB (test code = HGB) 9.7 G/DL 11.5-15.5 L HCT (test code = HCT) 31.3 % 34-46 L MCV (test code = MCV) 84.1 FL 80-98 MCH (test code = MCH) 26.1 PG 28-32 L MCHC (test code = MCHC) 31.0 G/DL 32.5-36.5 L RDW (test code = RDW) 21.9 % 11.5-14.5 H PLT (test code = PLT) 102 K/UL 150-450 L MPV (test code = MPV) 11.7 FL 7.4-10.4 H MANDIFF (test code = MANDIFF) NO SCAN (test code = SCAN) NO NEUT% (test code = NEUT%) 58.9 % 40-75 LYMPH% (test code = LYMPH%) 27.4 % 24-44 MONO% (test code = MONO%) 9.2 % 0-13 EOS% (test code = EOS%) 3.7 % 0-4 BASO % (test code = BASO%) 0.4 % 0-2 IG (test code = IG) 0 % 0-1 IG% (test code = IG%) 0.4 % 0-1 IG% = Metamyeloc ytes, Myelocytes, and Promyelocytes. (Immature neutrophils not including "bands".) > 3% IG indicates risk of sepsis NRBC% (test code = NRBC%) 0 /100 WBC ABS NEUT (test code = NEUT) 2.9 K/UL 1.2-7.2 WHOLE BLOOD [id number] 17:25:00* Test Item Value Reference Range Interpretation Comme nts WHOLE BLOOD GLUCOSE (test co de = POC GLU) 189 MG/DL 70-99 H ANTI-NUCLEAR AB, IGG [id number] 16:27:00* Test Item Value Reference Range Interpretation Comme nts ANTI-NUCLEAR AB, IGG (test c ode = DANIEL IGG) NEGATIVE NEGATIVE HEMOGLOBIN [id number] 15:23:00* Test Item Value Reference Range Interpretation Comme nts HEMOGLOBIN A (test code = HGBA) 97.9 % 96.4-98.8 HEMOGLOBIN S (test code = HGBS) 0.0 % >0.0 HEMOGLOBIN C (test code = HGBC) 0.0 % >0.0 HEMOGLOBIN A2 (test code = HGBA2) 2.1 % 1.8-3.2 HEMOGLOBIN F (test code = HGBF) 0.0 % 0.0-2.0 HEMOGLOBIN VARIANT (test code = HGBVAR) 0.0 % >0.0 INTERPRE (test code = INTERPRE) Note: Normal adult hem oglobin present. Performed at: [address], [place] [id number] Sticker Hand: GRETCHEN Luna MD, Phone: [phone] PAROXYSMAL NOCT. [id number] 11:09:00* Test Item Value Reference Range Interpretation Comme nts PNH (test code = PNH) NEGATIVE TESTING PERFORME D AT [facility] INTERPRETATION: NO EVIDENCE OF PAROXYSMAL NOCTURNAL HEMOGLOBINURIA FREE K AND L LIGHT CHAIN [id number] 09:47:00* Test Item Value Reference Range Interpretation Comme nts FREE KAPPA LT CHAIN (test co de = FRKLTCH) 21.5 mg/l 3.3-19.4 H FREE LAMBDA LT CHAINS (test code = FRLLTCH) 22.3 mg/l 5.7-26.3 KAPPA/LAMBDA RATIO (test cod e = K/L RATI) 0.96 0.26-1.65 TESTING PERFORMED AT [address] [id number], QUANT 2018-06-28 08:30:00* Test Item Value Reference Range Interpretation Comme nts HAPTO (test code = HAPTO) 61 mg/dL 34-200 Performed at: [address] [id number] Sticker Hand: Patti Bustillos MD, Phone: [phone] HOMOCYSTEINE, [id number] 10:17:00* Test Item Value Reference Range Interpretation Comme nts HOMOCYSTEINE, PLASMA (test code = HOMO-S) 12.5 umol/L 0.0-15.0 Performed at: [facility] [id number] Sticker Hand: Kiet Carpenter MD, Phone: [phone] DIRECT [id number] 13:36:00* Test Item Value Reference Range Interpretation Comme nts IGG (test code = ANTI-IGG) NEGATIVE NEGATIVE IGG-C3D (test code = IGG-C3D) NEGATIVE NEGATIVE RHEUMATOID [id number] 12:50:00* Test Item Value Reference Range Interpretation Comme nts RF/RA (test code = RA) <8.6 IU/mL 0-12 HIV 1/2 [id number] 12:50:00* Test Item Value Reference Range Interpretation Comme [facility] HIV 1/2 ANTIBODY (test code = AHIV) NONREACTIVE NONREACTIVE This test is used for SCREENING purposes only. All reactive results are prelimenary and confirmation results will follow. ACUTE HEPATITIS [id number] 12:49:00* Test Item Value Reference Range Interpretation Comme nts HAAB,M (test code = HAAB,M) NEGATIVE NEGATIVE HBCABM (test code = HBCABM) NEGATIVE NEGATIVE A GRAYZONE resul t is presumptive evidence of IgM anti-HBc. Patients with specimens exhibiting buitrago zone reactive test results should be retested at approximately one-week intervals. HCV (test code = HCV) NEGATIVE NEGATIVE Hepatitis C Anti body test is for screening purposes only. All reactives will be confirmed by additional testing. HEPBSAG (test code = HEPBSAG) NEGATIVE NEGATIVE Hepatitis B Surf thiago Antigen is for screening purpose only. All reactives will be sent to reference lab for confirmation. [id number] 12:49:00* Test Item Value Reference Range Interpretation Comme nts LDH (test code = LDH) 510 U/L 313-618 WHOLE BLOOD [id number] 12:26:00* Test Item Value Reference Range Interpretation Comme [facility] WHOLE BLOOD GLUCOSE (test code = POC GLU) 122 mg/dL 70-99 H Fasting glucose normal <100 MG/DL- [employer] recommendation US LIMITED ABD [id number] 11:55:[address] [address]AOQPOHRINB IMAGING REPORTPatient Name: Kade PRATT of Service: [id number]: 47 Sex: F Order #: [id number] Room: [address] [place] [address] T3DOB: 1970 X-Ray Number: [id number] Record Number: [id number] Hospital Number: [id number] Physician: LEONOR EUBANKS -Ordering Physician: Lauren COOPER upper quadrant sonogram.History:Splenomegaly.Technique: Transabdominal images of the left upper quadrant was performedand reviewed.F indings:The left kidney appears normal in terms of size, shape, and echogenicity.Left kidney measures 10.8 x 4.8 x 4.8 cm.The spleen was assessed and demonstrates mild enlargement at almost 14 cm.Impression:Mild splenomegaly at 14 cm.Electronically Signed By: Deondre Jules M.D., 06/26/2018 11:52 AMLegally authenticated by KATALINA Mac 2018-06-26 11:52:56RETIC COUNT 2018-06-26 11:22:00* Test Item Value Reference Range Interpretation Comme nts RETIC (test code = RETIRE) 1.8 % 0.3-1.9 IRF (test code = IRF) 20.0 % 3-15.9 H RETHE (test code = RETHE) 21.3 pg 28.2-36.6 L RHCT (test code = RHCT) 33.6 % 38-52 L HCT/[id number] 08:04:00* Test Item Value Reference Range Interpretation Comme nts HGB (test code = HGB) 10.8 G/DL 11.5-15.5 L HCT (test code = HCT) 34.7 % 34-46 MCV (test code = MCV) 77.6 FL 80-98 L MCHC (test code = MCHC) 31.1 G/DL 32.5-36.5 L WHOLE BLOOD [id number] 20:30:00* Test Item Value Reference Range Interpretation Comme nts WHOLE BLOOD GLUCOSE (test code = POC GLU) 127 mg/dL 70-99 H Fasting glucose normal <100 MG/DL- [employer] recommendation VITAMIN [id number] 18:40:00* Test Item Value Reference Range Interpretation Comme nts B12 (test code = B12) 286 pg/mL 239-931 [id number] 18:40:00* Test Item Value Reference Range Interpretation Comme nts FOLATE (test code = FOLATE) 11.8 ng/mL 2.76-20.0 WHOLE BLOOD [id number] 18:01:00* Test Item Value Reference Range Interpretation Comme nts WHOLE BLOOD GLUCOSE (test code = POC GLU) 84 mg/dL 70-99 Fasting glucose normal <100 MG/DL- [employer] recommendation WHOLE BLOOD [id number] 12:26:00* Test Item Value Reference Range Interpretation Comme nts WHOLE BLOOD GLUCOSE (test code = POC GLU) 197 mg/dL 70-99 H Fasting glucose normal <100 MG/DL- [employer] recommendation 1 UNIT [id number] 12:00:00* Test Item Value Reference Range Interpretation Comme nts PI (test code = PI) MORTGAGE FUNDER SI (test code = SI) Transfused [id number] 08:56:00* Test Item Value Reference Range Interpretation Comme nts HGB (test code = HGB) 10.3 G/DL 11.5-15.5 L HCT (test code = HCT) 32.9 % 34-46 L MCV (test code = MCV) 78.5 FL 80-98 L MCHC (test code = MCHC) 31.3 G/DL 32.5-36.5 L WHOLE BLOOD [id number] 08:12:00* Test Item Value Reference Range Interpretation Comme nts WHOLE BLOOD GLUCOSE (test code = POC GLU) 114 mg/dL 70-99 H Fasting glucose normal <100 MG/DL- [employer] recommendation ER SCREEN FOR HIV 07:38:00* Test Item Value Reference Range Interpretation Comme nts HIV 1/2 AB (test code = SCRN HIV) NONREACTIVE NONREACTIVE This test is us ed for SCREENING purposes only. All reactive results are prelimenary and confirmation results will follow. HEPATITIS C ANTIBODY [id number] 07:38:00* Test Item Value Reference Range Interpretation Comme nts SCRN HCV (test code = SCRN HCV) NEGATIVE NEGATIVE Hepatitis C Anti body test is for screening purposes only. All reactives will be confirmed by additional testing. 1 UNIT [id number] 04:00:00* Test Item Value Reference Range Interpretation Comme nts PI (test code = PI) MORTGAGE FUNDER SI (test code = SI) Transfused [id number] 01:31:00* Test Item Value Reference Range Interpretation Comme nts HGB (test code = HGB) 8.9 G/DL 11.5-15.5 L HCT (test code = HCT) 28.8 % 34-46 L MCV (test code = MCV) 77.4 FL 80-98 L MCHC (test code = MCHC) 30.9 G/DL 32.5-36.5 L WHOLE BLOOD [id number] 00:56:00* Test Item Value Reference Range Interpretation Comme nts WHOLE BLOOD GLUCOSE (test code = POC GLU) 139 mg/dL 70-99 H Fasting glucose normal <100 MG/DL- [employer] recommendation WHOLE BLOOD [id number] 21:17:00* Test Item Value Reference Range Interpretation Comme nts WHOLE BLOOD GLUCOSE (test code = POC GLU) 105 mg/dL 70-99 H Fasting glucose normal <100 MG/DL- [employer] recommendation [id number] 17:49:00* Test Item Value Reference Range Interpretation Comme nts HGB (test code = HGB) 9.8 G/DL 11.5-15.5 L HCT (test code = HCT) 31.5 % 34-46 L MCV (test code = MCV) 78.2 FL 80-98 L MCHC (test code = MCHC) 31.1 G/DL 32.5-36.5 L SMALL BOWEL [id number] 16:22:[address] [id number] IMAGING REPORTPatient Name: Kade PRATT of Service: [id number]: 47 Sex: F Order #: [id number] Room: [address] [place] [address] T3DOB: 1970 X-Ray Number: [id number] Record Number: [id number] Hospital Number: [id number] Physician: DANA PERALES NHATOrdering Physician: Sameera NDIAYE bowel study 1500 hoursHistory: Anemia, recent colonoscopyGastrografin Contrast was given orally.Findings:Small bowel loops have a normal course, caliber and motility.Contrast reaches the colon within 45 minutes.There is no definite persistent constricting or obstructing lesion.Impression:Unremarkable small bowel series.Electronically Signed By: Chris Brannon M.D., 06/24/2018 4:20 PMLegally authenticated by LIDYA DAVIDSON 2018-06-24 16:20:24IRON/ BINDING CAPACITY/ %[id number] 15:07:00* Test Item Value Reference Range Interpretation Comme nts IRON % SATURATION (test code = %SAT) 5 % 20-45 L IRON (test code = FE) 28 UG/DL 37-170 L If Iron is <6 the % saturation is incalculable. IBC (test code = IBC) 521 265-497 H [id number] 13:26:00* Test Item Value Reference Range Interpretation Comme nts HGB (test code = HGB) 8.7 G/DL 11.5-15.5 L HCT (test code = HCT) 28.2 % 34-46 L MCV (test code = MCV) 78.3 FL 80-98 L MCHC (test code = MCHC) 30.9 G/DL 32.5-36.5 L 1 UNIT [id number] 10:26:00* Test Item Value Reference Range Interpretation Comme nts PI (test code = PI) MORTGAGE FUNDER SI (test code = SI) Transfused [id number] 10:14:00* Test Item Value Reference Range Interpretation Comme nts WBC (test code = WBC) 5.4 K/UL 3.5-10.9 RBC (test code = RBC) 3.47 M/UL 4.0-5.0 L HGB (test code = HGB) 8.5 G/DL 11.5-15.5 L HCT (test code = HCT) 27.1 % 34-46 L MCV (test code = MCV) 78.1 FL 80-98 L MCH (test code = MCH) 24.5 PG 28-32 L MCHC (test code = MCHC) 31.4 G/DL 32.5-36.5 L RDW (test code = RDW) 17.7 % 11.5-14.5 H PLT (test code = PLT) 131 K/UL 150-450 L MPV (test code = MPV) 12.5 FL 7.4-10.4 H MANDIFF (test code = MANDIFF) NO SCAN (test code = SCAN) NO NEUT% (test code = NEUT%) 62.9 % 40-75 LYMPH% (test code = LYMPH%) 26.9 % 24-44 MONO% (test code = MONO%) 7.0 % 0-13 EOS% (test code = EOS%) 2.2 % 0-4 BASO % (test code = BASO%) 0.6 % 0-2 IG (test code = IG) 0 % 0-1 IG% (test code = IG%) 0.4 % 0-1 IG% = Metamyeloc ytes, Myelocytes, and Promyelocytes. (Immature neutrophils not including "bands".) > 3% IG indicates risk of sepsis NRBC% (test code = NRBC%) 0 /100 WBC ABS NEUT (test code = NEUT) 3.4 K/UL 1.2-7.2 1 UNIT [id number] 10:07:00* Test Item Value Reference Range Interpretation Comme nts PI (test code = PI) MORTGAGE FUNDER SI (test code = SI) Transfused BMP, BASIC METABOLIC [id number] 10:02:00* Test Item Value Reference Range Interpretation Comme nts SODIUM (test code = NA) 142 MMOL/L 137-145 K+ (test code = KSERUM) 4.3 MMOL/L 3.5-5.1 PLEASE NOTE NEW REFERENCE RANGE(S) IN EFFECT EFFECTIVE 03/26/2010 - NEW ANALYZER (iGoOn s.r.l. 5600) CHLORIDE (test code = CL) 107 MMOL/L 98-107 CO2 (test code = CO2) 28 MMOL/L 22-30 BUN (test code = BUN) 8 MG/DL 7-17 CREA (test code = CREA) 0.5 MG/DL 0.7-1.2 L GLUCOSE (test code = GLUCOSE) 122 MG/DL 70-99 H Fasting glucos e normal <100 MG/DL- [employer] recommendation CALCIUM (test code = CABLOOD) 8.8 MG/DL 8.4-10.2 GFR (test code = GFR) 142 mL/min/1.73m2 A GFR of >90 mL/min/1.73m2 is considered normal. [id number] 08:53:00* Test Item Value Reference Range Interpretation Comme nts HGB (test code = HGB) 8.2 G/DL 11.5-15.5 L HCT (test code = HCT) 27.1 % 34-46 L MCV (test code = MCV) 77.7 FL 80-98 L MCHC (test code = MCHC) 30.3 G/DL 32.5-36.5 L THYROID STIMULATION [id number] 23:21:00* Test Item Value Reference Range Interpretation Comme nts TSH (test code = TSH) 2.88 UIU/ML 0.465-4.68 OCCULT BLOOD, [id number] 17:52:00* Test Item Value Reference Range Interpretation Comme nts OCCULT BLOOD FECES (test cod e = OCCBLFEC) POSITIVE NEGATIVE A LOT# CRD (test code = LOT# CRD) [id number] EXP CRD (test code = EXP CRD) LOT# DVL (test code = LOT# DVL) [id number] EXP DVL (test code = EXP DVL) INT QC (test code = INT QC) PASSED ABO/RH [id number] 17:49:00* Test Item Value Reference Range Interpretation Comme nts CONFIRMATION BLOOD TYPE (juan carlos t code = CONFTYPE) O POSITIVE [id number] 17:46:00* Test Item Value Reference Range Interpretation Comme nts BLOOD TYPE (test code = TYPE) O Rh Positive ANTIBODY SCREEN (test code = SCREEN) NEGATIVE NEGATIVE [id number] 17:04:00* Test Item Value Reference Range Interpretation Comme nts SODIUM (test code = NA) 141 MMOL/L 137-145 K+ (test code = KSERUM) 4.1 MMOL/L 3.5-5.1 PLEASE NOTE NEW REFERENCE RANGE(S) IN EFFECT EFFECTIVE 03/26/2010 - NEW ANALYZER (iGoOn s.r.l. 5600) CHLORIDE (test code = CL) 111 MMOL/L 98-107 H CO2 (test code = CO2) 28 MMOL/L 22-30 BUN (test code = BUN) 9 MG/DL 7-17 CREA (test code = CREA) 0.5 MG/DL 0.7-1.2 L GLUCOSE (test code = GLUCOSE) 150 MG/DL 70-99 H Fasting glucos e normal <100 MG/DL- [employer] recommendation CALCIUM (test code = CABLOOD) 8.9 MG/DL 8.4-10.2 TOTPROT (test code = TOTPROT) 6.8 G/DL 6.3-8.2 ALBUMIN (test code = ALBSERUM) 3.5 G/DL 3.5-5.0 BILITOT (test code = BILITOT) 0.5 MG/DL 0.2-1.3 AST (test code = AST) 28 U/L 15-46 PHOSALK (test code = PHOSALK) 86 U/L 38-126 ALT (test code = ALT) 26 U/L 13-69 GFR (test code = GFR) 142 mL/min/1.73m2 A GFR of >90 mL/min/1.73m2 is considered normal. [id number] 16:38:00* Test Item Value Reference Range Interpretation Comme nts WBC (test code = WBC) 6.1 K/UL 3.5-10.9 RBC (test code = RBC) 2.43 M/UL 4.0-5.0 L HGB (test code = HGB) 5.1 G/DL 11.5-15.5 LL HCT (test code = HCT) 17.9 % 34-46 L MCV (test code = MCV) 73.7 FL 80-98 L MCH (test code = MCH) 21.0 PG 28-32 L MCHC (test code = MCHC) 28.5 G/DL 32.5-36.5 L RDW (test code = RDW) 17.6 % 11.5-14.5 H PLT (test code = PLT) 137 K/UL 150-450 L MPV (test code = MPV) 11.5 FL 7.4-10.4 H MANDIFF (test code = MANDIFF) NO SCAN (test code = SCAN) NO NEUT% (test code = NEUT%) 64.0 % 40-75 LYMPH% (test code = LYMPH%) 26.2 % 24-44 MONO% (test code = MONO%) 7.4 % 0-13 EOS% (test code = EOS%) 2.0 % 0-4 BASO % (test code = BASO%) 0.2 % 0-2 IG (test code = IG) 0 % 0-1 IG% (test code = IG%) 0.2 % 0-1 IG% = Metamyeloc ytes, Myelocytes, and Promyelocytes. (Immature neutrophils not including "bands".) > 3% IG indicates risk of sepsis NRBC% (test code = NRBC%) 0 /100 WBC ABS NEUT (test code = NEUT) 3.9 K/UL 1.2-7.2 CHECKED x2 RESULTS VERIFIED.C'd TO ight/ped er/1637/caCHEST 1 VIEW PORTABLE 2018-06-23 14:01:[address] [id number] IMAGING REPORTPatient Name: Kade PRATT of Service: [id number]: 47 Sex: F Order #: [id number] [facility] 1970 [facility] Number: [id number] Record Number: [id number] Hospital Number: [id number] Physician: JANETTE BARRETT -Ordering Physician: JANETTE BARRETT -CHEST 1 VIEW PORTABLE 06/23/2018 1:58 PMHistory: Cough without feverComparisons: 06/12/2018FINDINGS:Heart size is normal.There is no focallung consolidation.There is no definite pleural effusion or pneumothorax identified.Resection of the distal RIGHT clavicle.IMPRESSION:No acute cardiopulmonary process.Electronically Signed By: Chris Brannon M.D., 06/23/2018 1:59 PMLegally authenticated by LIDYA DAVIDSON 2018-06-23 13:59:27WHOLE BLOOD [id number] 12:41:00* Test Item Value Reference Range Interpretation Comme nts WHOLE BLOOD GLUCOSE (test code = POC GLU) 127 mg/dL 70-99 H Fasting glucose normal <100 MG/DL- [employer] recommendation GROUP A STREP [id number] 12:44:00* Test Item Value Reference Range Interpretation Comme nts GROUP A STREP SCREEN (test code = STREPGRA) POSITIVE NEGATIVE A SCREEN PO S/CULT POS - GRP A STREP ISOLATED. FINAL REPORT STREP A INTERNAL POS CNTRL (test code = STRPAIPC) PASS PASS STREP A LOT # (test code = STRPALOT) [id number] STREP A EXPIRATION DATE (test code = STRPAEXP) 2020-06-16 SCREEN POS/CULT POS - GRP A STREP ISOLATED. FINAL REPORTWHOLE BLOOD GLUCOSE 2018-06-12 11:33:00* Test Item Value Reference Range Interpretation Comme nts WHOLE BLOOD GLUCOSE (test code = POC GLU) 146 mg/dL 70-99 H Fasting glucose normal <100 MG/DL- [employer] recommendation CHEST XR 2 [id number] 09:28:00[address] [id number] IMAGING REPORTPatient Name: Kade PRATT of Service: [id number]: 47 Sex: F Order #: [id number] Room: [facility]: [facility] X-Ray Number: [id number] Record Number: [id number] Hospital Number: [id number] Physician: Sophia LAW Physician: SALOMON CAMACHO 2 VIEWS@0 912 hours June 12, 2018:CLINICAL HISTORY: Sore throat, swollen glands and cough dyspnea andlightheaded bodyachesTECHNIQUE: PA and lateralFINDINGS: The heart and pulmonary vasculature are normal, and the lungs areclear.The mediastin al structures and bony thorax are normal.IMPRESSION:Normal chest.Electronically Signed By: Luis F Uribe M.D., 06/12/2018 9:26 AMLegally authenticated by LORNE Tafoya 2018-06-12 09:26:12INFLUENZA [id number] 09:10:00* Test Item Value Reference Range Interpretation Comme nts FLU A (test code = FLU A) NEGATIVE NEGATIVE FLU B (test code = FLU B) NEGATIVE NEGATIVE FLU INTERNAL POSITIVE CNTRL (test code = FLU IPC) PASS PASS INFLUENZA LOT # (test code = FLULOT) [id number] INFLUENZA EXPIRATION DATE (t est code = FLUEXP) [id number] Notes Date/Time Note Provider Source 2024-11-23 14:23:00 [id number] [place] [address] PATIENT NAME: YUNIER PRATT ADMIT DATE: 11/08/24 ACCOUNT NO: [id number] ROOM NO: DCCVN1 AGE: 54 REPORT TYPE: eECHOCARDIOGRAM REPORT SEX: F ADMITTING PHYSICIAN:Angela Aceves DO ATTENDING PHYSICIAN:Flynn Becerra MD *[place] [address] Limited Transthoracic Echocardiogram Patient: Yunier Pratt Study Date: 11/20/2024 BP: 118 / 69 URN: [id number] Location: : 1970 Age: 54 Gender: F Height: 66 in / 167.6 cm Weight: 166 lb / 75.3 kg BMI/BSA: 26.8 kg/m 2 / 1.89 m 2 *Ordering Physician: * Talita Monzon *Interpreting Physician: * Sharon Lindquist MD *Bolt Maker: * Isabela Nguyen Indications: S/P CABG. Study data: Transthoracic echocardiogram, limited study. Procedure: A transthoracic echocardiogram was performed. Image quality was adequate. Limited 2D and limited spectral Doppler. Location: Bedside. Patient room number: 3360. Heart rate: 78 bpm. Findings Left ventricle: The cavity size is normal. Wall thickness is normal. Systolic function is normal. The estimated ejection fraction is 55-60%. Wall motion is normal; there are no regional wall motion abnormalities. Left atrium: The atrium is dilated. Aortic valve: There is thickening, consistent with sclerosis. There is no PATIENT NAME: YUNIER PRATT evidence of stenosis. Mitral valve: The annulus is moderately fibrotic. The leaflets are mildly thickened. Pericardium: A trivial pericardial effusion is identified. Measurements Left ventricle Value Ref 11/08/2024 GLS, 2D -15 % --------- -13 JUANI, LAX 5.2 cm 3.8 - 5.2 4.1 ESD, LAX 3.6 cm 2.2 - 3.5 2.9 FS, LAX 31 % 27 - 45 29 IVS, ED 1.0 cm 0.6 - 0.9 1.2 PW, ED 1.0 cm 0.6 - 0.9 1.6 IVS/PW, ED 0.95 --------- 0.77 EF 58 % 54 - 74 57 LVOT Value Ref 11/08/2024 Diam, S 1.91 cm --------- 2.00 Area 2.9 cm 2 --------- 3.1 Right ventricle Value Ref 11/08/2024 JUANI, LAX 3.0 cm --------- 2.9 Left atrium Value Ref 11/08/2024 Vol/bsa, S 58 ml/m 2 16 - 34 86 Vol/bsa, ES, 1-p A4C 53 ml/m 2 11 - 40 88 Vol, ES, 2-p 118 ml --------- 159 Vol/bsa, ES, 2-p 63 ml/m 2 16 - 34 86 Vol/bsa, ES, A/L 56 ml/m 2 16 - 34 88 AP dim, ES MM 5.3 cm 2.7 - 3.8 LA/Ao root ratio, MM 1.75 --------- Aortic valve Value Ref 11/08/2024 Leaflet sep, MM 2.02 cm --------- Mitral valve Value Ref 11/08/2024 E-septal separation 0.5 cm --------- E-F slope 0.07 m/sec --------- Aortic root Value Ref 11/08/2024 Root diam, ED MM 3.0 cm --------- Conclusions Summary: 1. Left ventricle: The cavity size is normal. Wall thickness is normal. Systolic function is normal. The estimated ejection fraction is 55-60%. Wall motion is normal; there are no regional wall motion abnormalities. 2. Left atrium: The atrium is dilated. 3. Aortic valve: There is thickening, consistent with sclerosis. PATIENT NAME: YUNIER PRATT 4. Mitral valve: The annulus is moderately fibrotic. The leaflets are mildly thickened. 5. Pericardium, extracardiac: A trivial pericardial effusion is identified. Electronically signed by Sharon Lindquist MD 11/23/2024 14:23 at 1423 PATIENT NAME: YUNIER PRATT [facility] 2024-11-23 01:49:00 [id number] [place] [address] PATIENT NAME: YUNIER PRATT ADMIT DATE: 11/08/24 ACCOUNT NO: [id number] ROOM NO: G.DCCVN1 AGE: 54 REPORT TYPE: 360 - QUERY RESPONSE DOCUMENT SEX: F ADMITTING PHYSICIAN:Angela Aceves DO ATTENDING PHYSICIAN:Flynn Becerra MD Provider Query QUERY TEXT: Condition Nutritional Status 360MD Query related questions should be directed to:[facility] Coding Query Helpline Based on your clinical judgment, please clarify the condition(s) that represent(s) the clinical indicators listed below. The patient's Clinical Indicators include: Nutrition BMI calculated: 24.6 Nutrition weight k.050 Nutrition height ft: 5 Nutrition height in: 6 Recent weight loss without trying: Yes How much weight have you lost: 14-23 lb Malnutrition screen tool score: 2 - Malnutrition risk Albumin (3.4 - 5.0 g/dL) 3.10 L Albumin (3.4 - 5.0 g/dL) 3.10 L-Cardiology Consultation 11/08/2024 CYANOCOBALAMIN (VITAMIN B-12) 500 MCG TABLET Date Start Stop Amount Route Site 11/12/2024 07:59 Oral 11/13/2024 08:26 1 MCG Oral 11/14/2024 08:51 1 MCG Oral Options provided: -- Mild protein-calorie/protein-energy malnutrition, Please specify supporting clinical documentation for severity (e.g. BMI, serum albumin, total lymphocyte count, CD4+, etc.) as well as supporting conditions such as disorders that affect GI function, wasting disorders, or metabolic conditions. -- Moderate protein-calorie/protein-energy malnutrition, Please specify supporting clinical documentation for severity (e.g. BMI, serum albumin, total lymphocyte count, CD4+, etc.) as well as supporting conditions such as disorders that affect GI function, wasting disorders, or metabolic conditions. -- Severe protein-calorie/protein-energy malnutrition, Please specify supporting clinical documentation for severity (e.g. BMI, serum albumin, total lymphocyte count, CD4+, etc.) as well as supporting conditions such as disorders that affect GI function, wasting disorders, or metabolic conditions. -- Unspecified protein-calorie/protein-energy malnutrition -- Failure to thrive -- Weight Loss -- Underweight -- Other - I will add my own diagnosis -- Disagree - Not applicable / Not valid -- Disagree - Clinically unable to determine / Unknown -- Assign to another provider QUERY RESPONSE: The patient has mild protein-calorie/protein-energy malnutrition. albu 3.1 BMI 24 Query created by: Kyra English on 11/14/2024 11:46 AM at 0149 PATIENT NAME: YUNIER PRATT [facility] 2024-11-23 01:49:00 [id number] [place] [address] PATIENT NAME: YUNIER PRATT ADMIT DATE: 11/08/24 ACCOUNT NO: [id number] ROOM NO: G.DCCVN1 AGE: 54 REPORT TYPE: 360 - QUERY RESPONSE DOCUMENT SEX: F ADMITTING PHYSICIAN:Angela Aceves DO ATTENDING PHYSICIAN:Flynn Becerra MD Provider Query QUERY TEXT: Condition General 360MD Query related questions should be directed to:[facility] Coding Query Helpline [Based on your clinical judgment, can you please clarify if atelectasis was confirmed, atelectasis Ruled out or other more appropriate diagnosis?.] The patient's Clinical Indicators include: - XR CHEST 1 V 11/14/2024 (1) FINDINGS: Pulmonary vascular congestion with small left pleural effusion and possible left lower lobe consolidation/atelectasis. - XR CHEST 1 V 11/11/2024 (1) FINDINGS: There is pulmonary vascular congestion and interstitial prominence with moderate bibasilar atelectasis/infiltrates and small bilateral pleural effusions. RT: Incentive Spirometry + 11/08/2024 (3) RT: Incentive Spirometry +: 11/08/2024 - 03:10 PM - RT INCENTIVE SPIROMETRY - - Incentive spirometry comments: Incentive Spirometry +: 11/14/2024 - 08:49 AM - RT INCENTIVE SPIROMETRY - - Incentive spirometry comments: - Options provided: -- Respond - Create new note now -- Disagree - Not applicable / Not valid -- Disagree - Clinically unable to determine / Unknown -- Assign to another provider QUERY RESPONSE: Atelectasis ruled out Query created by: Kyra English on 11/14/2024 11:50 AM at 0149 PATIENT NAME: YUNIER PRATT [facility] 2024-11-21 16:24:00 [facility] Hospitalist Progress Note REPORT#:[id number] REPORT STATUS: Signed REPORT INITIALIZATION DATE:11/21/24 TIME: 1624 PATIENT: YUNIER PRATT UNIT #: [id number] ROOM/BED: [place] [address]-1 : [birth year] AGE: 54 SEX: F ATTEND: Flynn Becerra MD ADM AUTHOR: Flynn Becerra MD REPT SERVICE DT/TIME: 11/21/24 0901 * ALL edits or amendments must be made on the electronic/computer document * Subjective Chief complaint: s/p chest tube insertion, fluid drained. Chest tube have been removed and pain resolved. Objective General VS/I O: Vital Signs: Date Time Temp Pulse Resp B/P B/P Pulse O2 O2 Flow FiO2 Mean Ox Delivery Rate 11/21 910 100 Room air 11/21 0725 74 38 112/59 79 100 11/21 0725 98.4 74 20 112/59 0.0 100 Room air 11/21 0547 98.4 76 14 148/75 0.0 100 Room air 11/21 0545 78 25 148/75 105 100 11/20 2354 69 18 100/59 75 99 11/20 2354 97.7 69 12 100/59 0.0 99 Room air 11/203 99 Room air 11/20 2037 86 22 146/72 103 99 11/20 1937 99.3 85 14 118/69 85.2 100 Room air 11/20 1648 97.9 78 16 102/65 77.2 99 24 hour I O ending at 0700: 11/21 0700 11/20 1900 Intake Total Output Total Balance Number 1 Bowel Movements PATIENT WEIGHT: Weight (lb): 166 Weight (oz): 3.66 Weight (kg): 75.400 Physical Exam General appearance: alert, awake, oriented Head/Eyes: atraumatic, normocephalic ENT: moist mucosal membranes, normal dentition Neck: full range of motion, supple/no meningismus Cardiovascular: normal heart sounds, regular rate rhythm, no murmur Respiratory: aerating well, clear to auscultation, symmetric expansion, no distress Abdomen: non-tender, soft, no distention, no guarding, no rebound Extremities: moves all, no edema 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, oriented X 3, CNII-XII intact, no motor deficits, no sensory deficits Skin: dry, intact, no rash Psychiatry: normal affect, normal mood Results Findings/Data: Laboratory Tests 11/21 11/20 11/20 0723 2046 1646 Chemistry POC Glucose (70 - 110 MG/DL) 184 H 135 H 177 H Radiology data: Recent Impressions: RADIOLOGY - XR CHEST 1 V 11/21 0850 Report Impression - Status: SIGNED Entered: 11/21/2024 1118 IMPRESSION: Cardiomegaly with mild pulmonary vascular congestion, similar to most recent prior. Impression By: Jj Wynne M.D. Diagnosis, Assessment Plan Hospital course to date: 11/10- POD #1 CABG. c/o post op pain. d/w CV surgery team and pain management consulted 11/11- POD #2 CABG. pain is much better controlled. possibly transfer out of CCU today. chest tubes out yesterday.lasix x1 today 11/12: POD #3. Hyperglycemia improved after adding Lantus 15 BID. 11/13: Hb 6.6 today. 2 units RBC transfused. HIT panel postive, Heme Onc consulted and RACHELLE panel sent. CXR shows diffsue congestive changes. Venous doppler negative. 11/15-11/17: Fecal occult blood and RACHELLE pending 11/19: US for pleural effusion was done due to SOB, shows that there is increasing effusion, IR has been consulted to place CORNELL pigtails. 11/20: s/p CORNELL pigtails, reduction in effusion, will DC according to CTS. RACHELLE negative. 11/21: s/p chest tube removal. Ok to d/c home. Consultants: cardiology, cardiovascular surgery Free Text DxA P Notes Free text DxA P notes: 54 yo F w PMHx of HTN, DM presented for evaluation of SOB and chest pain at [facility]. Patient was found to have NSTEMI. 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 Patient was transported to [facility] for CABG evaluation. Assessment and Plan CORNELL pleural effusion: -As seen on US -s/p Ultrasound guided pleural drain placement (11/19) -s/p CORNELL pigtails, reduction in effusion, will DC according to CTS. Heparin Induced Thrombocytopenia -As per Hematology and CTS anticoagulation, will hold off on argatroban but watch closely for any thrombosis, platelet counts and await RACHELLE testing result. -Platelets 94>61>114>118 -HIT panel positive, RACHELLE negative. 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 FEV1 is 60% of predicted. Ratio is normal. History of Diabetes Mellitus Type-2, Uncontrolled - HGB A1c 8.0 - Blood sugar monitoring - Lantus 20 BID - Insulin SS History of Diabetic Neuropathy - Continue Gabapentin 1,200MG PO TID (verified) - Continue home Cymbalta History of Anxiety - Continue Seroquel 200MG PO bedtime Pleural effusions -U/S - may need pig tail catheter. Diet: Regular DVT ppx: Heparin gtt Pepcid FULL CODE Dispo: CORNELL pigtails in place, will DC acording to CTS. at 1625 RPT #:[id number] END OF REPORT [facility] 2024-11-21 08:27:00 [facility] Pain Management Progress Note REPORT#:[id number] REPORT STATUS: Signed REPORT INITIALIZATION DATE:11/21/24 TIME: 826 PATIENT: YUNIER PRATT UNIT #: [id number] [facility] AGE: 54 SEX: F ATTEND: Flynn Becerra MD ADM AUTHOR: Alejandro Cabrera JOB COACH/JOB DEVELOPER REPT SERVICE DT/TIME: 11/21/24826 * ALL edits or amendments must be made on the electronic/computer document * Subjective Chief complaint: Patient seen and examined. Chart/MAR reviewed Patient states pain control has been doing fairly well. The medication allows for adequate comfort when taken and without side effects. Medication regimen reviewed. She is discharging this morning. Patient being seen for chest pain, acute postoperative pain, diabetic polyneuropathy, muscle spasms, constipation/OIC Patient is still requiring medications to help with managing current problems Patient is requiring IV narcotics to help manage breakthrough pain No fever/chills, chest pain, orthopnea, nausea/vomiting, pruritus, or hallucinations. 14-point ROS undertaken and is unremarkable except as noted. Objective General VS/I O: Vital Signs Date Temp Pulse Resp B/P B/P Mean Pulse Ox FiO2 11/20-11/21 97.7-99.3 66-86 12-38 100-148/56-75 0.0-105 96-100 Last Documented: Result Date Time Pulse Ox 100 11/21 0725 B/P 112/59 11/21 07 B/P Mean 79 11/21 0725 Pulse 74 11/21 0725 Resp 38 11/21 07 O2 Delivery Room air 11/21 724 Temp 98.4 11/21 07 FiO2 21 11/20 0141 O2 Flow Rate 0 11/11 1601 24 hour I O ending at 0700: 11/21 0700 11/20 1900 Intake Total Output Total Balance Number 1 Bowel Movements PATIENT WEIGHT: Weight (lb): 166 Weight (oz): 3.66 Weight (kg): 75.400 Medications: Active Meds + DC'd Last 24 Hrs Lorazepam (ATIVAN) 0.5 MG Q8H PRN PRN PO Amiodarone HCl (CORDARONE) 200 MG BID PO Acetaminophen (TYLENOL) 650 MG Q4H PRN PRN PO Hydromorphone HCl (DILAUDID) 0.2 MG Q6H PRN PRN IV Bisacodyl (DULCOLAX) 10 MG DAILY PRN PRN RECTAL Lidocaine (Lidocaine 4% Patch) 1 PATCH DAILY TOPICAL Tizanidine HCl (ZANAFLEX) 4 MG Q8HR PO Hydrocodone Bitart/Acetaminophen (NORCO 7.5/325 TABLET) 2 TAB Q4H PRN PRN PO Insulin Glargine (Semglee) 20 UNIT BID SUBQ Ipratropium Hazard (ATROVENT) 500 MCG RTQ2H PRN PRN INH Cyanocobalamin (Vitamin B-12 500 mcg tab) 500 MCG DAILY PO Ferrous Sulfate (FERROUS SULFATE) 325 MG DAILY PO Quetiapine Fumarate (SeroqueL) 200 MG BEDTIME PO Gabapentin (NEURONTIN) 1,200 MG TID PO Insulin Human Lispro (Admelog) 0 AC HS SUBQ Amitriptyline HCl (ELAVIL) 25 MG BEDTIME PO Naloxone HCl (NARCAN) 0.4 MG Q2M PRN PRN IV Clopidogrel Bisulfate (Plavix) 75 MG DAILY PO Polyethylene Glycol (MIRALAX) 17 GM DAILY PO Pantoprazole (PROTONIX) 40 MG DAILY@0600 PO Aspirin (ASPIRIN) 81 MG DAILY PO Atorvastatin Calcium (LIPITOR) 40 MG 2100 PO Docusate Sodium (COLACE) 100 MG BID PO Metoprolol Tartrate (LOPRESSOR) 12.5 MG Q12HR PO Sennosides (Senna Lax 8.6 MG TABLET) 17.2 MG BEDTIME PO Dextrose/Water (DEXTROSE 10% IN WATER) 125 ML ASDIR PRN IV (CKD) Dextrose/Water (DEXTROSE 10% IN WATER) 250 ML ASDIR PRN IV (CKD) Glucagon (GLUCAGON) 1 MG ASDIR PRN IM Magnesium Sulfate (MAGNESIUM SULFATE 4GM/SWFI 100ML) 100 ML ASDIR PRN IV Magnesium Sulfate (MAGNESIUM SULFATE 2GM/SWFI 50ML) 50 ML ASDIR PRN IV Magnesium Sulfate/Dextrose (MAGNESIUM SULFATE 1GM/D5W 100ML) 100 ML ASDIR PRN IV Ondansetron HCl (ZOFRAN) 4 MG Q6H PRN PRN IV Potassium Chloride (KCL 20MEQ/SWFI 100ML) 100 ML ASDIR PRN IV Fluticasone Propionate (Flonase Nasal Baxter) 2 SPRAY DAILY NASAL (CKD) Physical Exam General appearance: alert, awake, oriented, no acute distress Head/eyes: atraumatic, EOMI, normocephalic, PERRLA ENT: normal nose, moist mucosal membranes Neck: no JVD, supple/no meningismus Cardiovascular: regular rate rhythm, normal heart sounds, dressing over sternum Respiratory: aerating well, symmetric expansion Abdomen: soft, non-tender, no distention Extremities: moves all, no edema, no clubbing, no cyanosis 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, oriented X 3, normal speech, CNII-XII grossly intact Skin: dry, normal turgor, warm Psychiatry: no hallucinations, normal affect, normal mood Results Findings/data: Laboratory Tests: 11/21 11/20 11/20 11/20 0723 2046 1646 1154 Chemistry POC Glucose (70 - 110 MG/DL) 184 H 135 H 177 H 221 H Recent Impressions: RADIOLOGY - XR CHEST 1 V 11/20 1008 Report Impression - Status: SIGNED Entered: 11/20/2024 1009 impression: Bilateral pigtail pleural chest tubes remain in place with significant interval decrease in size of bilateral pleural effusions with only trace residual fluid. There is mild CHF pattern with cardiomegaly and pulmonary vascular congestion. Cardiac and mediastinal silhouettes otherwise appear stable. Significantly improved aeration of the lung bases with only mild bibasilar subsegmental atelectasis. There are trace biapical pneumothoraces. No acute bony abnormality or other remarkable changes compared to prior study. Impression By: [email or web address] - George Gonzalez D.O. Diagnosis, Assessment Plan Free text A P: Patient is a 54 year old female who presents with the following: Chest pain, acute postoperative pain -S/P CABG on 11/09/24 -S/P chest tube placement x 2 11/19 -DC oxycodone 10mg q6h PRN -DC Dilaudid 4mg PO q4h PRN, pain scale 4-10 (11/15) -DC Acetaminophen 1000mg q6h (11/15) -Lidocaine patch to chest wall daily 12h on 12h off (11/16) -[place] 7.5/325 mg 2 tabs PO q4h PRN pain scale 4-10 (11/15) -Dilaudid 0.2 mg IV q6h PRN, pain scale 7-10, second line (decr dose 11/18) -stable Diabetic polyneuropathy -Amitriptyline 25mg at bedtime -Gabapentin 1200mg TID (11/11) -stable Muscle spams -DC Robaxin 500mg PO TID -DC Methocarbamol 1000mg IV q8h x 3 doses (11/14) -Tizanidine 4 mg PO q8h (11/15) -stable Insomnia -Takes seroquel 200mg QHS at home Constipation/OIC -Relistor 12 mg subq daily x 3 days (11/13, completed) -Docusate 100mg BID -Miralax 17gm daily -Senna 17.2 mg at bedtime -Dulcolax 10 mg CA daily PRN -Manageable Disposition: Okay for outpatient follow up Rx: sent electronically 11/19 Portage 7.5/325 mg PO q6h PRN #20, Narcan, Gabapentin 1200 mg PO TID, Tizanidine 4 mg PO q8h PRN (signed) [facility]: [facility] Past medical history: DM, HTN, CAD Past surgical history: CABG, ALAA, PP, EVH, chest tube placement x2 Family history: Noncontributory Social history: denies drugs, alcohol, smoking Allergies: NKDA All pertinent diagnostics/labs from the last 24 hours and during the course of the admission were reviewed. Plan discussed with the patient and the nurse. All questions were answered. Patient will be monitored for deleterious side effects associated with opioids and sedative medications. Medications will be adjusted further clinical course. Risks versus benefits of opioid medications were reviewed to include, but not limited to respiratory depression, accidental overdose, altered mental status, sudden , constipation which could result in bowel obstruction, seizures, withdrawal, dependency/addiction, risk for falls. Goals: Daily pain control. Case reviewed and discussed with Dr. Keith who agrees with plan of care. [place] [employer] records reviewed: Total Prescriptions 6 Total Private Pay 0 Total Prescribers 4 Total Pharmacies 2 2024 2024 1 HYDROCODONE-ACETAMIN 5-325 MG 20.00 3 Pa Tho [id number] [facility] (191) 0 33.33 MME Comm Ins [place] 2024 2024 1 TRAMADOL-ACETAMINOPHN 37.5-325 20.00 3 Pa Tho [id number] [facility] (0911) 0 50.00 MME Comm Ins [place] 06/08/2023 06/08/2023 1 ACETAMINOPHEN-COD #3 TABLET 10.00 10 Ma Gopi [id number] [facility] ( 9890) 0 4.50 MME Comm Ins [place] [facility] (1911) [address] [facility] [id number] [facility] [phone] [facility] [address] at 1404 RPT #:[id number] END OF REPORT [facility] 2024-11-21 07:42:00 [facility] ([facility] Discharge Summary REPORT#:[id number] REPORT STATUS: Signed REPORT INITIALIZATION DATE:11/21/24 TIME: 741 PATIENT: YUNIRE PRATT UNIT #: [id number] ROOM/BED: [place] [id number] : 72 AGE: 54 SEX: F ATTEND: Flynn Becerra MD ADM AUTHOR: Talita Monzon REPT SERVICE DT/TIME: 11/21/24 0742 * ALL edits or amendments must be made on the electronic/computer document * PCP PCP PCP: PCP: No Primary or Family Physician Discharge to: home General Information Date of admission: Observation Start Date: Date of admission: 11/08/24 Discharge date: 11/21/24 Discharge diagnosis: s/p CABG Hospital course: This is a 54-year-old female with a past medical history of hypertension, diabetes on insulin who presented to [facility] with complaints of chest pain. She was ruled in for NSTEMI on her blood work. 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 Patient was transferred to [facility] for further evaluation and workup of multivessel CAD. Patient denies any alcohol or drug use. He does report half pack a day smoking for the past 40 years. 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 Assessment/plan 1. Hypertension 2. Diabetes on insulin 3. NSTEMI 4. Multivessel CAD Patient seen and examined. Patient will begin workup for consideration for coronary bypass graft surgery. Appropriate preoperative studies will be completed. Echocardiogram pending vein mapping pending Carotid Doppler pending Will obtain pulmonary function test due to patient's history of smoking Further recs to follow based on further clinical workup. 11/09/24 1. Coronary artery bypass graft surgery x5 (ASH to LAD, saphenous vein to diagonal, saphenous vein to first marginal, saphenous vein to second marginal, saphenous vein to PDA). 2. Amputation of left atrial appendage. 3. Endoscopic vein harvest bilateral greater saphenous vein. 4. Posterior pericardiotomy. 11/10/24 POD 1 AAOx3 Patient reports pain, Multimodal pain control Respiratory: 4 L nasal cannula Encourage IS, Deep Breathing, CXR reviewed chest tube drainage 25 and 25 so far this morning after walking. Chest tubes causing marked amount of pain. Will DC chest tubes Cardiac: Sinus rhythm, pacing wires on standby GI: Advance diet as tolerated, monitor glycemic control : Ramirez in place, monitor urine output UO: 765 overnight PT/OT, patient walked the unit Disposition: Patient has good family support DVT prophylaxis, SCDs in place Continue DAPT, metoprolol, Lipitor, amiodarone Labs reveiwed- replace electrolytes as needed Patient seen and examined by Dr. Ross. Plan of care discussed with patient and multidisciplinary team. The patient's questions were answered 11/11/24 POD 2 AAOx3 Patient reports pain, Multimodal pain control, pain management following Respiratory: Room air Encourage IS, Deep Breathing, CXR reviewed, chest tubes removed yesterday. Bilateral pleural effusions. Continue diuresis for now. Patient may need right pigtail placement GI: Advance diet as tolerated, monitor glycemic control : F Ramirez DC'd yesterday. Voiding well PT/OT, patient walked the unit Disposition: Patient has good family support DVT prophylaxis, SCDs in place Continue DAPT, metoprolol, Lipitor, amiodarone Labs reveiwed- replace electrolytes as needed Patient seen and examined by Dr. Ross. Plan of care discussed with patient and multidisciplinary team. The patient's questions were answered Give Lasix 20 IV today. 11/12/24 POD 3 AAOx3 Patient reports pain, Multimodal pain control, pain management following, consider decreasing pain m meds. Respiratory: Room air Encourage IS, Deep Breathing, CXR reviewed, pleural effusion appears to be improving continue diuresing. GI: Tolerating diet, pending BM : Voiding well PT/OT, patient walked the unit Disposition: Patient has good family support DVT prophylaxis, SCDs in place Continue DAPT, metoprolol, Lipitor, amiodarone Labs reveiwed- replace electrolytes as needed Patient seen and examined by Dr. Ross. Plan of care discussed with patient and multidisciplinary team. The patient's questions were answered 20 of Lasix given. Platelets trending down, Will order HIT panel 11/13/24 POD 4 AAOx3 Labs reviewed, replace electrolytes as needed, hgb dropped to 6.6 from 7.8, plts 61 HIT panel positive, pending RACHELLE Patient reports improved pain, Multimodal pain control, pain management following Respiratory: Room air, Encourage IS, Deep Breathing, CXR reviewed, There are diffuse congestive changes bilaterally. No pneumothorax or pleural effusion is identified. NSR, monitoring BP closly, pacing wires on standby GI: Tolerating diet, pending BM, mom suppository today : Voiding well, urine output 400cc overnight, Lasix today PT/OT, patient walked the unit Disposition: Patient has good family support DVT prophylaxis, SCDs in place DVT study ordered, negative DVT to Left leg, ordered updated bilateral Lower extremity Continue DAPT, metoprolol, Lipitor, amiodarone Labs reviewed- replace electrolytes as needed Patient seen and examined by Dr. Ross. Plan of care discussed with patient and multidisciplinary team. The patient's questions were answered. 11/14/24 POD 5 AAOx3 Pending updated labs, replace electrolytes as needed, yesterday hgb dropped to 6.6 from 7.8, plts 61, pending stool occult HIT panel positive, pending RACHELLE Discussed with hematology plan for anticoagulation, will hold off on argatroban but watch closely for any thrombosis, platelet counts and await RACHELLE testing result. Patient reports improved pain, Multimodal pain control, pain management following Respiratory: Room air, Encourage IS, Deep Breathing, CXR reviewed NSR, monitoring BP closly, pacing wires on standby GI: Tolerating diet, pending BM, mom suppository today : Voiding well, weight still up from baseline, continue diuresis PT/OT, patient ambulating around the unit Disposition: Patient has good family support DVT prophylaxis, SCDs in place DVT study negative for DVT to CORNELL LE Continue DAPT, metoprolol, Lipitor, amiodarone Patient seen and examined by Dr. Ross. Plan of care discussed with patient and multidisciplinary team. The patient's questions were answered. 11/16/24 POD 7 AAOx3 Pending updated labs, replace electrolytes as needed, hgb 8.6, plts 118, pending stool occult Patient complaints of left back pain, pain management following HIT panel positive, pending RACHELLE Discussed with hematology plan for anticoagulation, will hold off on argatroban but watch closely for any thrombosis, platelet counts and await RACHELLE testing result. Patient reports improved pain, Multimodal pain control, pain management following Respiratory: Room air, Encourage IS, Deep Breathing, CXR reviewed, small bilateral effusions, will give Lasix 20mg IV BID NSR, monitoring BP closly, pacing wires on standby GI: Tolerating diet, small bowel movement yesterday, continue bowel regimen : Voiding well, weight still up from baseline, continue diuresis PT/OT, patient ambulating around the unit Disposition: Patient has good family support DVT prophylaxis, SCDs in place DVT study negative for DVT to CORNELL LE Continue DAPT, metoprolol, Lipitor, amiodarone Patient seen and examined by Dr. Ross. Plan of care discussed with patient and multidisciplinary team. The patient's questions were answered. 11/17/24 POD 8 AAOx3 Pending updated labs, replace electrolytes as needed, hgb 7.8, plts 138 Patient complaints of left back pain, pain management following HIT panel positive, pending RACHELLE Discussed with hematology plan for anticoagulation, will hold off on argatroban but watch closely for any thrombosis, platelet counts and await RACHELLE testing result. Patient reports improved pain, Multimodal pain control, pain management following Respiratory: Room air, Encourage IS, Deep Breathing, CXR reviewed, small bilateral effusions, will give Lasix 40mg IV x1 today NSR, monitoring BP closly, pacing wires on standby GI: Tolerating diet, reports BM, continue bowel regimen : Voiding well, weight still up from baseline, continue diuresis PT/OT, patient ambulating around the unit Disposition: Patient has good family support DVT prophylaxis, SCDs in place DVT study negative for DVT to CORNELL LE Continue DAPT, metoprolol, Lipitor, amiodarone Patient seen and examined by Dr. Rsos. Plan of care discussed with patient and multidisciplinary team. The patient's questions were answered. 11/18/24 POD 9 AAOx3 Pending updated labs, replace electrolytes as needed, hgb 7.8, plts 133 Please no more labs, patient complaining of being poked all the time and is becoming very frustrated. Today, a repeat type and screen was completed. Will hold off on any further lab draws until RACHELLE is resulted. Patient complaints of left back pain, pain management following HIT panel positive, pending RACHELLE Discussed with hematology plan for anticoagulation, will hold off on argatroban but watch closely for any thrombosis, platelet counts and await RACHELLE testing result. Patient reports improved pain, Multimodal pain control, pain management following Respiratory: Room air, Encourage IS, Deep Breathing, CXR reviewed, bilateral pleural effusions, ordered US to evaluate size for possible pigtail placement NSR, monitoring BP closly, pacing wires on standby GI: Tolerating diet, reports BM, continue bowel regimen : Voiding well, weight still up from baseline, continue diuresis PT/OT, patient ambulating around the unit Disposition: Patient has good family support. DVT prophylaxis, SCDs in place DVT study negative for DVT to CORNELL LE Continue DAPT, metoprolol, Lipitor, amiodarone Patient seen and examined by Dr. Ross. Plan of care discussed with patient and multidisciplinary team. The patient's questions were answered. 11/20/24 POD 11 AAOx3 Pending updated labs, replace electrolytes as needed, hgb 7.8, plts 133 on Please no more labs. Will hold off on any further lab draws until RACHELLE is resulted. Patient complaints of left back pain, pain management following HIT panel positive, pending RACHELLE Discussed with hematology plan for anticoagulation, will hold off on argatroban but watch closely for any thrombosis, platelet counts and await RACHELLE testing result. Patient reports improved pain, Multimodal pain control, pain management following Respiratory: Room air, Encourage IS, Deep Breathing, CXR reviewed IR placed bilateral pigtails, CT 1 1600cc, CT 2 1800, will continue to monitor today NSR, monitoring BP closly, pacing wires on standby GI: Tolerating diet, reports BM, continue bowel regimen : Voiding well, weight still up from baseline, continue diuresis PT/OT, patient ambulating around the unit Disposition: Patient has good family support. DVT prophylaxis, SCDs in place DVT study negative for DVT to CORNELL LE Continue DAPT, metoprolol, Lipitor, amiodarone Patient seen and examined by Dr. Ross. Plan of care discussed with patient and multidisciplinary team. The patient's questions were answered. 11/21/24 POD 12 AAOx3 RACHELLE negative Patient reports improved pain, Multimodal pain control, pain management following Respiratory: Room air, Encourage IS, Deep Breathing, CXR reviewed CT's removed last night NSR, monitoring BP closly, pacing wires Dc'd last night, echocardiogram limited preliminary results shows EF 55-60%, trivial pericardial effusion GI: Tolerating diet, reports BM, continue bowel regimen : Voiding well, continue diuresis PT/OT, patient ambulating around the unit Disposition: Patient has good family support. DVT prophylaxis, SCDs in place DVT study negative for DVT to CORNELL LE Continue DAPT, metoprolol, Lipitor, amiodarone Post op apt given, instructions given, all questions answered. Patient seen and examined by Dr. Ross. Plan of care discussed with patient and multidisciplinary team. The patient's questions were answered. Consultants: cardiology, cardiovascular surgery Med Rec PCP PCP: PCP: No Primary or Family Physician Med Rec Discharge meds: Stop taking the following medications: FUROSEMIDE (LASIX) 10 MG/ML VIAL 40 MILLIGRAM INTRAVENOUS TWICE DAILY. NICOTINE (NICODERM 21 MG) 21 MG/24 HOUR PATCH 21 MILLIGRAM TRANSDERMAL DAILY. Continue taking these medications: DULoxetine DR (CYMBALTA) 20 MG CAP.DR 20 MILLIGRAM ORAL DAILY. GABAPENTIN (NEURONTIN) 300 MG CAP 600 MILLIGRAM ORAL THREE TIMES A DAY. Qty = 2 Start taking the following new medications: CLOPIDOGREL (PLAVIX) 75 MG TAB 75 MILLIGRAM ORAL DAILY. Days = 60 Qty = 60 No Refills FERROUS SULFATE (FEOSOL) 325 MG (65 MG IRON) TAB 325 MILLIGRAM ORAL DAILY. Days = 30 Qty = 30 No Refills AMIODARONE (PACERONE) 200 MG TAB 200 MILLIGRAM ORAL DAILY. Days = 7 Qty = 7 No Refills ATORVASTATIN (LIPITOR) 40 MG TAB 40 MILLIGRAM ORAL 2100 Days = 30 Qty = 30 No Refills METOPROLOL TARTRATE (LOPRESSOR) 25 MG TAB 12.5 MILLIGRAM ORAL EVERY 12 HOURS. Days = 30 Qty = 30 No Refills ASPIRIN (ASPIRIN) 81 MG TAB.CHEW 81 MILLIGRAM ORAL DAILY. Days = 30 Qty = [address] (PROTONIX) 40 MG TAB.DR 40 MILLIGRAM ORAL DAILY. Days = 30 Qty = 30 No Refills CYANOCOBALAMIN (VITAMIN B-12) 500 MCG TAB 500 MICROGRAM ORAL DAILY. Days = 30 Qty = 30 No Refills FUROSEMIDE (LASIX) 40 MG TAB 40 MILLIGRAM ORAL DAILY. Days = 7 Qty = 7 No Refills Objective VS/I O Last Documented: Result Date Time Pulse Ox 100 11/21 0725 B/P 112/59 11/21 0725 B/P Mean 0.0 11/21 0725 O2 Delivery Room air 11/21 0725 Temp 98.4 11/21 0725 Pulse 74 11/21 0725 Resp 20 11/21 0725 FiO2 21 11/20 0141 O2 Flow Rate 0 11/11 1601 24 hour I O ending at 0700: 11/21 0700 11/20 1900 Intake Total Output Total Balance Number 1 Bowel Movements PATIENT WEIGHT: Weight (lb): 166 Weight (oz): 3.66 Weight (kg): 75.400 General appearance: alert, awake, oriented Head/Eyes: atraumatic, clear cornea, EOMI, normocephalic ENT: normal dentition Neck: full range of motion, non-tender Cardiovascular: normal capillary refill, regular rate rhythm, normal heart sounds Respiratory: no distress, aerating well, symmetric expansion GI: soft, non-tender, normal bowel sounds Genitourinary: urine Extremities: moves all, no edema-all extremities, normal capillary refill, normal range of motion Musculoskeletal: full range of motion, normal inspection 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, oriented X 3 Skin: dry, intact, no gross abnormalities, normal color, normal turgor Wound/incision: Location: sternum Site Condition: incision intact, no changes in wound, no drainage, no ecchymosis, no erythema Results Findings/Data: Laboratory Tests: 11/20 11/20 11/20 11/20 2046 1646 1154 0826 Chemistry POC Glucose (70 - 110 MG/DL) 135 H 177 H 221 H 173 H Radiology data: Recent Impressions: RADIOLOGY - XR CHEST 1 V 11/20 1008 Report Impression - Status: SIGNED Entered: 11/20/2024 1009 impression: Bilateral pigtail pleural chest tubes remain in place with significant interval decrease in size of bilateral pleural effusions with only trace residual fluid. There is mild CHF pattern with cardiomegaly and pulmonary vascular congestion. Cardiac and mediastinal silhouettes otherwise appear stable. Significantly improved aeration of the lung bases with only mild bibasilar subsegmental atelectasis. There are trace biapical pneumothoraces. No acute bony abnormality or other remarkable changes compared to prior study. Impression By: [email or web address] Ange Gonzalez D.O. Results: labs reviewed, vital signs reviewed, vital signs stable, rhythm personally rev'd, current med profile rev'd Treatments Procedures Imaging: Recent Impressions: SPECIAL PROCEDURES - SP PERC DRAIN 11/19 1044 Report Impression - Status: SIGNED Entered: 11/19/2024 1654 IMPRESSION: Successful image-guided aspiration and drain placement into left chest fluid collection/left pleural effusion. Impression By: Efraín Gramajo M.D. SPECIAL PROCEDURES - SP PERC DRAIN 11/19 1123 Report Impression - Status: SIGNED Entered: 11/19/2024 1653 IMPRESSION: Successful image-guided aspiration and drain placement into right chest fluid collection/right pleural effusion. Impression By: Efraín Gramajo M.D. RADIOLOGY - XR CHEST 1 V 11/19 1131 Report Impression - Status: SIGNED Entered: 11/19/2024 1352 IMPRESSION: Uneventful placement of bilateral thoracostomy tubes with some improvement in pleural effusions. CHF with effusions noted. Impression By: [email or web address] Ange Galindo M.D. RADIOLOGY - XR CHEST 1 V 11/20 1008 Report Impression - Status: SIGNED Entered: 11/20/2024 1009 impression: Bilateral pigtail pleural chest tubes remain in place with significant interval decrease in size of bilateral pleural effusions with only trace residual fluid. There is mild CHF pattern with cardiomegaly and pulmonary vascular congestion. Cardiac and mediastinal silhouettes otherwise appear stable. Significantly improved aeration of the lung bases with only mild bibasilar subsegmental atelectasis. There are trace biapical pneumothoraces. No acute bony abnormality or other remarkable changes compared to prior study. Impression By: MitchABNba Gonzalez D.O. Discharge Instructions PCP PCP: PCP: No Primary or Family Physician )( Discharge to: Home/Self Care Discharge Instructions Additional Discharge Routines: PCP Follow-Up, Attending Follow-Up )( Diet: Cardiac )( Activity: As Tolerated, Appropriate for Age, Do not Submerge Incision, Light Duty, No Driving, No Lifting >10lbs, No Strenuous Activity, Shower Only, Sternal Precautions, Walk Follow-up Appointments PCP follow up: PCP: No Primary or Family Physician PCP follow up timeframe: In 1-2 weeks Attending Physician: Attending Physician: Flynn Becerra MD Consulting provider 1: Provider 1: Huey Michelle MD Specialty: Hematology and Oncology Consult follow up timeframe: In 1-2 weeks Consulting provider 2: Provider 2: Sharon Lindquist MD Specialty: CardiologyInterventional Follow up timeframe: In 1-2 weeks at 0747 RPT #:[id number] END OF REPORT [facility] 2024-11-20 23:34:00 [facility] Cardiology Progress Note REPORT#:[id number] REPORT STATUS: Signed REPORT INITIALIZATION DATE:11/20/24 TIME: 2333 PATIENT: YUNIER PRATT UNIT #: [id number] ROOM/BED: [place] [id number] : 74 AGE: 54 SEX: F ATTEND: Flynn Becerra MD ADM AUTHOR: Sharon Lindquist MD REPT SERVICE DT/TIME: 11/20/24 2334 * ALL edits or amendments must be made on the electronic/computer document * Subjective Free Text Subj Notes Free Text Subj Notes: Doing ok, hurts around the chest tubes Objective General VS/I O: 24 hour I O ending at 0700: 11/20 0700 11/19 1900 Intake Total 300 Output Total 560 200 Balance -260 -200 Intake, Oral 300 Number Voids 3 Output, Chest 560 200 Tube Drainage Patient 75.4 kg Weight Weight Standing scale Measurement Method Vital Signs: Date Time Temp Pulse Resp B/P B/P Pulse O2 O2 Flow FiO2 Mean Ox Delivery Rate 11/203 99 Room air 11/20 1937 99.3 85 14 118/69 85.2 100 Room air 11/20 1648 97.9 78 16 102/65 77.2 99 11/20 1154 98.1 68 20 108/62 0.0 100 11/20 0920 96 Room air 11/20 0828 98.1 66 16 101/56 0.0 100 11/20 0444 97.7 67 15 99/58 0.0 96 11/20 0443 67 16 99/58 76 98 11/20 0141 97 Room air 21 11/20 0049 98.1 75 17 140/67 0.0 97 11/20 0047 75 22 140/67 96 100 PATIENT WEIGHT: Weight (lb): 166 Weight (oz): 3.66 Weight (kg): 75.400 Medications: Active Meds + DC'd Last 24 Hrs Lorazepam (ATIVAN) 0.5 MG Q8H PRN PRN PO Amiodarone HCl (CORDARONE) 200 MG BID PO Acetaminophen (TYLENOL) 650 MG Q4H PRN PRN PO Hydromorphone HCl (DILAUDID) 0.2 MG Q6H PRN PRN IV Bisacodyl (DULCOLAX) 10 MG DAILY PRN PRN RECTAL Lidocaine (Lidocaine 4% Patch) 1 PATCH DAILY TOPICAL Tizanidine HCl (ZANAFLEX) 4 MG Q8HR PO Hydrocodone Bitart/Acetaminophen (NORCO 7.5/325 TABLET) 2 TAB Q4H PRN PRN PO Insulin Glargine (Semglee) 20 UNIT BID SUBQ Ipratropium Hazard (ATROVENT) 500 MCG RTQ2H PRN PRN INH Cyanocobalamin (Vitamin B-12 500 mcg tab) 500 MCG DAILY PO Ferrous Sulfate (FERROUS SULFATE) 325 MG DAILY PO Quetiapine Fumarate (SeroqueL) 200 MG BEDTIME PO Gabapentin (NEURONTIN) 1,200 MG TID PO Insulin Human Lispro (Admelog) 0 AC HS SUBQ Amitriptyline HCl (ELAVIL) 25 MG BEDTIME PO Naloxone HCl (NARCAN) 0.4 MG Q2M PRN PRN IV Clopidogrel Bisulfate (Plavix) 75 MG DAILY PO Polyethylene Glycol (MIRALAX) 17 GM DAILY PO Pantoprazole (PROTONIX) 40 MG DAILY@0600 PO Aspirin (ASPIRIN) 81 MG DAILY PO Atorvastatin Calcium (LIPITOR) 40 MG 2100 PO Docusate Sodium (COLACE) 100 MG BID PO Metoprolol Tartrate (LOPRESSOR) 12.5 MG Q12HR PO Sennosides (Senna Lax 8.6 MG TABLET) 17.2 MG BEDTIME PO Dextrose/Water (DEXTROSE 10% IN WATER) 125 ML ASDIR PRN IV (CKD) Dextrose/Water (DEXTROSE 10% IN WATER) 250 ML ASDIR PRN IV (CKD) Glucagon (GLUCAGON) 1 MG ASDIR PRN IM Magnesium Sulfate (MAGNESIUM SULFATE 4GM/SWFI 100ML) 100 ML ASDIR PRN IV Magnesium Sulfate (MAGNESIUM SULFATE 2GM/SWFI 50ML) 50 ML ASDIR PRN IV Magnesium Sulfate/Dextrose (MAGNESIUM SULFATE 1GM/D5W 100ML) 100 ML ASDIR PRN IV Ondansetron HCl (ZOFRAN) 4 MG Q6H PRN PRN IV Potassium Chloride (KCL 20MEQ/SWFI 100ML) 100 ML ASDIR PRN IV Fluticasone Propionate (Flonase Nasal Baxter) 2 SPRAY DAILY NASAL (CKD) Physical Exam General appearance: alert, awake, oriented Head/Eyes: atraumatic, normocephalic Neck: non-tender, no JVD Cardiovascular: CV assessment: regular rate and rhythm Respiratory: accessory muscle use (B/L chest tube placed ), decreased breath sounds, shortness of breath, mild SOB Abdomen: soft, non-tender, normal bowel sounds, no distention Genitourinary: no flank pain, no urinary catheter Lower extremity: LE assessment: no edema Musculoskeletal: normal inspection 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, oriented X 3, normal speech Skin: dry, intact, normal color Psychiatry: normal affect, normal judgment/insight, normal mood Results Findings/Data: Laboratory Tests 11/20 11/20 11/20 11/20 2046 1646 1154 2866 Chemistry POC Glucose (70 - 110 MG/DL) 135 H 177 H 221 H 173 H Diagnosis, Assessment Plan Consultants: cardiology, cardiovascular surgery Free Text DxA P Notes Free Text DxA P Notes: 54 YO patient with MH of HTN, DM, neuropathy, tobacco abuse who presented at [facility] with shortness of breath and chest pain. She was ruled for NSTEMI, had LHC which revealed multivessed CAD. She is transferred to [facility] for CABG evaluation. 1. NSTEMI/Multivessel CAD * Echo LVEF 50-54%, G1DD, mild MR * Plavix ASA, BB, statin * S/p CABG (ASH-LAD, SVG-OM1, SVG-OM2, SVG-Diag, SVG-PDA) and ALAA 2. Hypertension * BP stable, continue BB. 3. Diabetes mellitus * A1c 8 * manage per CTS 4. Acute Diastolic CHF, present to admission * LVEF 50-54% * cont GDMT 5. Positive heparin-induced thrombocytopenia * Platelets 61K->114K->103K * Hematology following 6. Postoperative anemia * Hemoglobin 6.6-> 9.9 * s/p 2 units PRBC 11/14 at 2336 RPT #:[id number] END OF REPORT [facility] 2024-11-20 23:23:00 [facility] ([facility] Tereso/Oncology Progress Note REPORT#:[id number] REPORT STATUS: Signed REPORT INITIALIZATION DATE:11/20/24 TIME: 2322 PATIENT: YUNIER PRATT UNIT #: [id number] ROOM/BED: [place] [id number] : 74 AGE: 54 SEX: F ATTEND: Flynn Becerra MD ADM AUTHOR: Huey Michelle MD REPT SERVICE DT/TIME: 11/20/242322 * ALL edits or amendments must be made on the electronic/computer document * Subjective Chief Complaint: pt doing ok. s/p 2 u prbc HGB at 7.8 positive DECLAN ab ELISAA and RACHELLE pending. fu on thrombocytopenia c/o chest discomfort and asks for pain meds Objective Physical Exam VS: Vital Signs Date Temp Pulse Resp B/P B/P Mean Pulse Ox FiO2 11/20 36.5-37.4 66-85 14-22 99-140/56-69 0.0-96 96-100 21 Last Documented: Result Date Time Pulse Ox 99 11/20 2152 O2 Delivery Room air 11/20 2152 B/P 118/69 11/20 1936 B/P Mean 85.2 11/20 1936 Temp 37.4 11/20 1936 Pulse 85 11/20 1936 Resp 14 11/20 1936 FiO2 21 11/20 0141 O2 Flow Rate 0 11/11 1601 HEENT: pupils reactive to light Cardiovascular: regular rate and rhythm, normal S1/S2 Respiratory: symmetric expansion Abdomen: non-tender, soft Extremities: edema, moves all, normal temperature, no edema 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, oriented X 3, no motor deficits Current Medications Medications: Active Meds + DC'd Last 24 Hrs Lorazepam (ATIVAN) 0.5 MG Q8H PRN PRN PO Amiodarone HCl (CORDARONE) 200 MG BID PO Acetaminophen (TYLENOL) 650 MG Q4H PRN PRN PO Hydromorphone HCl (DILAUDID) 0.2 MG Q6H PRN PRN IV Bisacodyl (DULCOLAX) 10 MG DAILY PRN PRN RECTAL Lidocaine (Lidocaine 4% Patch) 1 PATCH DAILY TOPICAL Tizanidine HCl (ZANAFLEX) 4 MG Q8HR PO Hydrocodone Bitart/Acetaminophen (NORCO 7.5/325 TABLET) 2 TAB Q4H PRN PRN PO Insulin Glargine (Semglee) 20 UNIT BID SUBQ Ipratropium Hazard (ATROVENT) 500 MCG RTQ2H PRN PRN INH Cyanocobalamin (Vitamin B-12 500 mcg tab) 500 MCG DAILY PO Ferrous Sulfate (FERROUS SULFATE) 325 MG DAILY PO Quetiapine Fumarate (SeroqueL) 200 MG BEDTIME PO Gabapentin (NEURONTIN) 1,200 MG TID PO Insulin Human Lispro (Admelog) 0 AC HS SUBQ Amitriptyline HCl (ELAVIL) 25 MG BEDTIME PO Naloxone HCl (NARCAN) 0.4 MG Q2M PRN PRN IV Clopidogrel Bisulfate (Plavix) 75 MG DAILY PO Polyethylene Glycol (MIRALAX) 17 GM DAILY PO Pantoprazole (PROTONIX) 40 MG DAILY@0600 PO Aspirin (ASPIRIN) 81 MG DAILY PO Atorvastatin Calcium (LIPITOR) 40 MG 2100 PO Docusate Sodium (COLACE) 100 MG BID PO Metoprolol Tartrate (LOPRESSOR) 12.5 MG Q12HR PO Sennosides (Senna Lax 8.6 MG TABLET) 17.2 MG BEDTIME PO Dextrose/Water (DEXTROSE 10% IN WATER) 125 ML ASDIR PRN IV (CKD) Dextrose/Water (DEXTROSE 10% IN WATER) 250 ML ASDIR PRN IV (CKD) Glucagon (GLUCAGON) 1 MG ASDIR PRN IM Magnesium Sulfate (MAGNESIUM SULFATE 4GM/SWFI 100ML) 100 ML ASDIR PRN IV Magnesium Sulfate (MAGNESIUM SULFATE 2GM/SWFI 50ML) 50 ML ASDIR PRN IV Magnesium Sulfate/Dextrose (MAGNESIUM SULFATE 1GM/D5W 100ML) 100 ML ASDIR PRN IV Ondansetron HCl (ZOFRAN) 4 MG Q6H PRN PRN IV Potassium Chloride (KCL 20MEQ/SWFI 100ML) 100 ML ASDIR PRN IV Fluticasone Propionate (Flonase Nasal Baxter) 2 SPRAY DAILY NASAL (CKD) Results Findings/Data: Laboratory Tests 11/20 11/20 11/20 11/20 2046 1646 1154 0826 Chemistry POC Glucose (70 - 110 MG/DL) 135 H 177 H 221 H 173 H Diagnosis, Assessment Plan Consultants: cardiology, cardiovascular surgery Free Text DxA P Notes Free Text DxA P Notes: 1. Thrombocytopenia 2. Positive DECLAN antibody test 3. s/p CABG x5 on 11/09/24 POD #3 4. Anemia post surgery acute on chronic Per MICA ([employer] [employer]) guidelines of diagnosis and management of DECLAN This patient has a low clinical probability of DECLAN based on 4Ts scoring - Thrombocytopenia >50% but timing less than 4 days from exposure, and no thrombosis. Other possible causes of thrombocytopenia exist (related to consumption and blood loss post surgery as- HGB dropped as well). she is at 3 point score which is low probability. Laboratory testing DECLAN positive by EISA but RACHELLE is pending which is more specific test. 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 This could be false positive but given positive test until RACHELLE assay is available will consider non heparin anticoagulant argatroban to prevent future thrombosis and ischemia risk. If RACHELLE is negative can dc argatroban. If RACHELLE is positive would transition to DOAC such as eliquis. This patient has a high risk of bleeding as post op state and HGB 6.6. low HIT probability. Hence will also check with [facility] if they feel strongly against starting argatroban weighing risk and benefit will hold off on argatroban but watch closely for any thrombosis, monitor platelet counts and await RACHELLE testing. 11/14 * HGB 9.5 plt 114k s/p 2 u prbc. seems transient thrombocytopenia more likely from consumption. * after d/w [facility] decided against any needs for argatroban unless positive RACHELLE noted. * platelet ct improving * cbc in am 11/16 * HGB 8.6 plt 118k * rachelle still pending * continue asa + plavix * supportive meds 11/17 * HGB 7.8 plt 138k * RACHELLE pending * continue on asa and plavix * supportive meds per primary team and CV surgery 11/20 * RACHELLE negative * s/p cornell chest drain tube placement for pleural effusion * plt 133k HGB 7.8 * no transfusion needs now but did recieve 2 u prbc on 11/14 at 2337 RPT #:[id number] END OF REPORT [facility] 2024-11-20 10:28:00 [facility] Cardiothoracic Surgery Prog REPORT#:[id number] REPORT STATUS: Signed REPORT INITIALIZATION DATE:11/20/24 TIME: 1028 PATIENT: YUNIER PRATT UNIT #: [id number] ROOM/BED: [place] [id number] : 74 AGE: 54 SEX: F ATTEND: Flynn Becerra MD ADM AUTHOR: Talita Monzon REPT SERVICE DT/TIME: 11/20/24 1028 * ALL edits or amendments must be made on the electronic/computer document * General Post-op: day 11 Status post: 11/09/24 1. Coronary artery bypass graft surgery x5 (ASH to LAD, saphenous vein to diagonal, saphenous vein to first marginal, saphenous vein to second marginal, saphenous vein to PDA). 2. Amputation of left atrial appendage. 3. Endoscopic vein harvest bilateral greater saphenous vein. 4. Posterior pericardiotomy. Subjective Chief complaint: Post op Review of Systems Constitutional: Reports: fatigue, generalized weakness. Denies: chills, fever. Skin: Denies: abrasion. Eyes: Denies: redness. ENT: Denies: ear drainage. Respiratory: Denies: HARTMAN (dyspnea on exertion), hemoptysis, non productive cough, SOB. Cardiovascular: Denies: chest pain, HARTMAN (dyspnea on exertion), edema. GI: Denies: abdominal pain. : Denies: dysuria. Musculoskeletal: Denies: arthritis. Heme: Denies: adenopathy, bleeding. All systems rev neg: except as marked Objective General VS/I O Last Documented: Result Date Time Pulse Ox 96 11/21 919 O2 Delivery Room air 11/21 919 B/P 101/56 11/21 827 B/P Mean 0.0 11/21 827 Temp 98.1 11/21 827 Pulse 66 11/21 827 Resp 16 11/21 827 FiO2 21 11/20 0141 O2 Flow Rate 0 11/11 1601 24 hour I O ending at 0700: 11/20 0700 11/19 1900 Intake Total 300 Output Total 560 200 Balance -260 -200 Intake, Oral 300 Number Voids 3 Output, Chest 560 200 Tube Drainage Patient 75.4 kg Weight Weight Standing scale Measurement Method PATIENT WEIGHT: Weight (lb): 166 Weight (oz): 3.66 Weight (kg): 75.400 Dietitian Nutrition assessment The data set between the solid lines has been imported from the dietitian's assessment. BMI Calculated: 26.8 Nutrition related diagnosis: Nutrition diagnosis details: Nutrition problem: Increased nutrient needs Nutrition etiology: Decreased/poor appetite, Decreased intake, Chronic disease Nutrition signs and symptoms: Mild muscle loss, 20% or more weight loss, S/P SURGERY Nutrition prescription: RECOMMEND: 1. RECOMMEND A CCD5 CARDIAC DIET. 2. RECOMMEND GLUCERNA TID WITH MEALS. Dietitian name: Evelin Perez, DIET Assessment completed: 11/16/24 Physical Exam General appearance: alert, awake, oriented Wound/incision: Location: sternum Site condition: incision intact, no changes in wound, no drainage HEENT: mucosal membranes moist, pupils reactive to light Neck: full range of motion, non-tender Cardiovascular: regular rate rhythm Respiratory: symmetric expansion, no distress Abdomen: soft, non-tender Extremities: dry, moves all 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, oriented X 3 Skin: dry, intact Current Medications Medications: Active Meds + DC'd Last 24 Hrs Amiodarone HCl (CORDARONE) 200 MG BID PO Acetaminophen (TYLENOL) 650 MG Q4H PRN PRN PO Fentanyl Citrate (SUBLIMAZE) 0 .STK-MED ONE IV (DC) Lorazepam (ATIVAN) 0 .STK-MED ONE IV (DC) Hydromorphone HCl (DILAUDID) 0.2 MG Q6H PRN PRN IV Bisacodyl (DULCOLAX) 10 MG DAILY PRN PRN RECTAL Lidocaine (Lidocaine 4% Patch) 1 PATCH DAILY TOPICAL Tizanidine HCl (ZANAFLEX) 4 MG Q8HR PO Hydrocodone Bitart/Acetaminophen (NORCO 7.5/325 TABLET) 2 TAB Q4H PRN PRN PO Insulin Glargine (Semglee) 20 UNIT BID SUBQ Ipratropium Hazard (ATROVENT) 500 MCG RTQ2H PRN PRN INH Cyanocobalamin (Vitamin B-12 500 mcg tab) 500 MCG DAILY PO Ferrous Sulfate (FERROUS SULFATE) 325 MG DAILY PO Quetiapine Fumarate (SeroqueL) 200 MG BEDTIME PO Gabapentin (NEURONTIN) 1,200 MG TID PO Insulin Human Lispro (Admelog) 0 AC HS SUBQ Amitriptyline HCl (ELAVIL) 25 MG BEDTIME PO Naloxone HCl (NARCAN) 0.4 MG Q2M PRN PRN IV Clopidogrel Bisulfate (Plavix) 75 MG DAILY PO Polyethylene Glycol (MIRALAX) 17 GM DAILY PO Pantoprazole (PROTONIX) 40 MG DAILY@0600 PO Aspirin (ASPIRIN) 81 MG DAILY PO Atorvastatin Calcium (LIPITOR) 40 MG 2100 PO Docusate Sodium (COLACE) 100 MG BID PO Metoprolol Tartrate (LOPRESSOR) 12.5 MG Q12HR PO Sennosides (Senna Lax 8.6 MG TABLET) 17.2 MG BEDTIME PO Dextrose/Water (DEXTROSE 10% IN WATER) 125 ML ASDIR PRN IV (CKD) Dextrose/Water (DEXTROSE 10% IN WATER) 250 ML ASDIR PRN IV (CKD) Glucagon (GLUCAGON) 1 MG ASDIR PRN IM Magnesium Sulfate (MAGNESIUM SULFATE 4GM/SWFI 100ML) 100 ML ASDIR PRN IV Magnesium Sulfate (MAGNESIUM SULFATE 2GM/SWFI 50ML) 50 ML ASDIR PRN IV Magnesium Sulfate/Dextrose (MAGNESIUM SULFATE 1GM/D5W 100ML) 100 ML ASDIR PRN IV Ondansetron HCl (ZOFRAN) 4 MG Q6H PRN PRN IV Potassium Chloride (KCL 20MEQ/SWFI 100ML) 100 ML ASDIR PRN IV Fluticasone Propionate (Flonase Nasal Baxter) 2 SPRAY DAILY NASAL (CKD) Results Findings/Data: Laboratory Tests 11/20 11/19 11/19 11/19 0826 2153 1531 1237 Chemistry POC Glucose (70 - 110 MG/DL) 173 H 200 H 172 H 193 H Radiology data: Recent Impressions: SPECIAL PROCEDURES - SP PERC DRAIN 11/19 1044 Report Impression - Status: SIGNED Entered: 11/19/2024 1654 IMPRESSION: Successful image-guided aspiration and drain placement into left chest fluid collection/left pleural effusion. Impression By: Efraín Gramajo M.D. SPECIAL PROCEDURES - SP PERC DRAIN 11/19 1123 Report Impression - Status: SIGNED Entered: 11/19/2024 1653 IMPRESSION: Successful image-guided aspiration and drain placement into right chest fluid collection/right pleural effusion. Impression By: Efraín Gramajo M.D. RADIOLOGY - XR CHEST 1 V 11/19 1131 Report Impression - Status: SIGNED Entered: 11/19/2024 1352 IMPRESSION: Uneventful placement of bilateral thoracostomy tubes with some improvement in pleural effusions. CHF with effusions noted. Impression By: [email or web address] - Jordan Galindo M.D. RADIOLOGY - XR CHEST 1 V 11/20 1008 Report Impression - Status: SIGNED Entered: 11/20/2024 1009 impression: Bilateral pigtail pleural chest tubes remain in place with significant interval decrease in size of bilateral pleural effusions with only trace residual fluid. There is mild CHF pattern with cardiomegaly and pulmonary vascular congestion. Cardiac and mediastinal silhouettes otherwise appear stable. Significantly improved aeration of the lung bases with only mild bibasilar subsegmental atelectasis. There are trace biapical pneumothoraces. No acute bony abnormality or other remarkable changes compared to prior study. Impression By: [email or web address] - George Gonzalez D.O. Results: labs reviewed, vital signs stable, rythm personally rev'd, current med profile rev'd Diagnosis, Assessment Plan Hospital course to date: This is a 54-year-old female with a past medical history of hypertension, diabetes on insulin who presented to [facility] with complaints of chest pain. She was ruled in for NSTEMI on her blood work. 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 Patient was transferred to [facility] for further evaluation and workup of multivessel CAD. Patient denies any alcohol or drug use. He does report half pack a day smoking for the past 40 years. 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 Assessment/plan 1. Hypertension 2. Diabetes on insulin 3. NSTEMI 4. Multivessel CAD Patient seen and examined. Patient will begin workup for consideration for coronary bypass graft surgery. Appropriate preoperative studies will be completed. Echocardiogram pending vein mapping pending Carotid Doppler pending Will obtain pulmonary function test due to patient's history of smoking Further recs to follow based on further clinical workup. 11/09/24 1. Coronary artery bypass graft surgery x5 (ASH to LAD, saphenous vein to diagonal, saphenous vein to first marginal, saphenous vein to second marginal, saphenous vein to PDA). 2. Amputation of left atrial appendage. 3. Endoscopic vein harvest bilateral greater saphenous vein. 4. Posterior pericardiotomy. 11/10/24 POD 1 AAOx3 Patient reports pain, Multimodal pain control Respiratory: 4 L nasal cannula Encourage IS, Deep Breathing, CXR reviewed chest tube drainage 25 and 25 so far this morning after walking. Chest tubes causing marked amount of pain. Will DC chest tubes Cardiac: Sinus rhythm, pacing wires on standby GI: Advance diet as tolerated, monitor glycemic control : Ramirez in place, monitor urine output UO: 765 overnight PT/OT, patient walked the unit Disposition: Patient has good family support DVT prophylaxis, SCDs in place Continue DAPT, metoprolol, Lipitor, amiodarone Labs reveiwed- replace electrolytes as needed Patient seen and examined by Dr. Ross. Plan of care discussed with patient and multidisciplinary team. The patient's questions were answered 11/11/24 POD 2 AAOx3 Patient reports pain, Multimodal pain control, pain management following Respiratory: Room air Encourage IS, Deep Breathing, CXR reviewed, chest tubes removed yesterday. Bilateral pleural effusions. Continue diuresis for now. Patient may need right pigtail placement GI: Advance diet as tolerated, monitor glycemic control : F Ramirez DC'd yesterday. Voiding well PT/OT, patient walked the unit Disposition: Patient has good family support DVT prophylaxis, SCDs in place Continue DAPT, metoprolol, Lipitor, amiodarone Labs reveiwed- replace electrolytes as needed Patient seen and examined by Dr. Ross. Plan of care discussed with patient and multidisciplinary team. The patient's questions were answered Give Lasix 20 IV today. 11/12/24 POD 3 AAOx3 Patient reports pain, Multimodal pain control, pain management following, consider decreasing pain m meds. Respiratory: Room air Encourage IS, Deep Breathing, CXR reviewed, pleural effusion appears to be improving continue diuresing. GI: Tolerating diet, pending BM : Voiding well PT/OT, patient walked the unit Disposition: Patient has good family support DVT prophylaxis, SCDs in place Continue DAPT, metoprolol, Lipitor, amiodarone Labs reveiwed- replace electrolytes as needed Patient seen and examined by Dr. Ross. Plan of care discussed with patient and multidisciplinary team. The patient's questions were answered 20 of Lasix given. Platelets trending down, Will order HIT panel 3/25/25 POD 4 AAOx3 Labs reviewed, replace electrolytes as needed, hgb dropped to 6.6 from 7.8, plts 61 HIT panel positive, pending RACHELLE Patient reports improved pain, Multimodal pain control, pain management following Respiratory: Room air, Encourage IS, Deep Breathing, CXR reviewed, There are diffuse congestive changes bilaterally. No pneumothorax or pleural effusion is identified. NSR, monitoring BP closly, pacing wires on standby GI: Tolerating diet, pending BM, mom suppository today : Voiding well, urine output 400cc overnight, Lasix today PT/OT, patient walked the unit Disposition: Patient has good family support DVT prophylaxis, SCDs in place DVT study ordered, negative DVT to Left leg, ordered updated bilateral Lower extremity Continue DAPT, metoprolol, Lipitor, amiodarone Labs reviewed- replace electrolytes as needed Patient seen and examined by Dr. Ross. Plan of care discussed with patient and multidisciplinary team. The patient's questions were answered. 11/14/24 POD 5 AAOx3 Pending updated labs, replace electrolytes as needed, yesterday hgb dropped to 6.6 from 7.8, plts 61, pending stool occult HIT panel positive, pending RACHELLE Discussed with hematology plan for anticoagulation, will hold off on argatroban but watch closely for any thrombosis, platelet counts and await RACHELLE testing result. Patient reports improved pain, Multimodal pain control, pain management following Respiratory: Room air, Encourage IS, Deep Breathing, CXR reviewed NSR, monitoring BP closly, pacing wires on standby GI: Tolerating diet, pending BM, mom suppository today : Voiding well, weight still up from baseline, continue diuresis PT/OT, patient ambulating around the unit Disposition: Patient has good family support DVT prophylaxis, SCDs in place DVT study negative for DVT to CORNELL LE Continue DAPT, metoprolol, Lipitor, amiodarone Patient seen and examined by Dr. Ross. Plan of care discussed with patient and multidisciplinary team. The patient's questions were answered. 11/16/24 POD 7 AAOx3 Pending updated labs, replace electrolytes as needed, hgb 8.6, plts 118, pending stool occult Patient complaints of left back pain, pain management following HIT panel positive, pending RACHELLE Discussed with hematology plan for anticoagulation, will hold off on argatroban but watch closely for any thrombosis, platelet counts and await RACHELLE testing result. Patient reports improved pain, Multimodal pain control, pain management following Respiratory: Room air, Encourage IS, Deep Breathing, CXR reviewed, small bilateral effusions, will give Lasix 20mg IV BID NSR, monitoring BP closly, pacing wires on standby GI: Tolerating diet, small bowel movement yesterday, continue bowel regimen : Voiding well, weight still up from baseline, continue diuresis PT/OT, patient ambulating around the unit Disposition: Patient has good family support DVT prophylaxis, SCDs in place DVT study negative for DVT to CORNELL LE Continue DAPT, metoprolol, Lipitor, amiodarone Patient seen and examined by Dr. Ross. Plan of care discussed with patient and multidisciplinary team. The patient's questions were answered. 11/17/24 POD 8 AAOx3 Pending updated labs, replace electrolytes as needed, hgb 7.8, plts 138 Patient complaints of left back pain, pain management following HIT panel positive, pending RACHELLE Discussed with hematology plan for anticoagulation, will hold off on argatroban but watch closely for any thrombosis, platelet counts and await RACHELLE testing result. Patient reports improved pain, Multimodal pain control, pain management following Respiratory: Room air, Encourage IS, Deep Breathing, CXR reviewed, small bilateral effusions, will give Lasix 40mg IV x1 today NSR, monitoring BP closly, pacing wires on standby GI: Tolerating diet, reports BM, continue bowel regimen : Voiding well, weight still up from baseline, continue diuresis PT/OT, patient ambulating around the unit Disposition: Patient has good family support DVT prophylaxis, SCDs in place DVT study negative for DVT to CORNELL LE Continue DAPT, metoprolol, Lipitor, amiodarone Patient seen and examined by Dr. Ross. Plan of care discussed with patient and multidisciplinary team. The patient's questions were answered. 11/18/24 POD 9 AAOx3 Pending updated labs, replace electrolytes as needed, hgb 7.8, plts 133 Please no more labs, patient complaining of being poked all the time and is becoming very frustrated. Today, a repeat type and screen was completed. Will hold off on any further lab draws until RACHELLE is resulted. Patient complaints of left back pain, pain management following HIT panel positive, pending RACHELLE Discussed with hematology plan for anticoagulation, will hold off on argatroban but watch closely for any thrombosis, platelet counts and await RACHELLE testing result. Patient reports improved pain, Multimodal pain control, pain management following Respiratory: Room air, Encourage IS, Deep Breathing, CXR reviewed, bilateral pleural effusions, ordered US to evaluate size for possible pigtail placement NSR, monitoring BP closly, pacing wires on standby GI: Tolerating diet, reports BM, continue bowel regimen : Voiding well, weight still up from baseline, continue diuresis PT/OT, patient ambulating around the unit Disposition: Patient has good family support. DVT prophylaxis, SCDs in place DVT study negative for DVT to CORNELL LE Continue DAPT, metoprolol, Lipitor, amiodarone Patient seen and examined by Dr. Ross. Plan of care discussed with patient and multidisciplinary team. The patient's questions were answered. 11/20/24 POD 11 AAOx3 Pending updated labs, replace electrolytes as needed, hgb 7.8, plts 133 on Please no more labs. Will hold off on any further lab draws until RACHELLE is resulted. Patient complaints of left back pain, pain management following HIT panel positive, pending RACHELLE Discussed with hematology plan for anticoagulation, will hold off on argatroban but watch closely for any thrombosis, platelet counts and await RACHELLE testing result. Patient reports improved pain, Multimodal pain control, pain management following Respiratory: Room air, Encourage IS, Deep Breathing, CXR reviewed IR placed bilateral pigtails, CT 1 1600cc, CT 2 1800, will continue to monitor today NSR, monitoring BP closly, pacing wires on standby GI: Tolerating diet, reports BM, continue bowel regimen : Voiding well, weight still up from baseline, continue diuresis PT/OT, patient ambulating around the unit Disposition: Patient has good family support. DVT prophylaxis, SCDs in place DVT study negative for DVT to CORNELL LE Continue DAPT, metoprolol, Lipitor, amiodarone Patient seen and examined by Dr. Ross. Plan of care discussed with patient and multidisciplinary team. The patient's questions were answered. Consultants: cardiology, cardiovascular surgery Code status: full code Plan discussed with: patient, collaborating MD, nurse, interdisc care team at [address] [facility] #:[id number] END OF REPORT [facility] 2024-11-20 10:26:00 [facility] ([facility]) Pain Management Progress Note REPORT#:[id number] REPORT STATUS: Signed REPORT INITIALIZATION DATE:11/20/24 TIME: 1026 PATIENT: YUNIER PRATT UNIT #: [id number] ROOM/BED: [place] [id number] : 72 AGE: 54 SEX: F ATTEND: Flynn Becerra MD ADM AUTHOR: Alejandro Cabrera NP REPT SERVICE DT/TIME: 11/20/24 1026 * ALL edits or amendments must be made on the electronic/computer document * Subjective Chief complaint: Patient seen and examined. Chart/MAR reviewed Patient underwent chest tube placement. She hurts but is tolerating. Patient being seen for chest pain, acute postoperative pain, diabetic polyneuropathy, muscle spasms, constipation/OIC Patient is still requiring medications to help with managing current problems Patient is requiring IV narcotics to help manage breakthrough pain No fever/chills, chest pain, orthopnea, nausea/vomiting, pruritus, or hallucinations. 14-point ROS undertaken and is unremarkable except as noted. Objective General VS/I O: Vital Signs Date Temp Pulse Resp B/P B/P Mean Pulse Ox FiO2 11/19-11/20 97.7-101.7 66-91 14-35 99-143/54-70 0.0-96 93-100 21 Last Documented: Result Date Time Pulse Ox 96 11/20 0920 O2 Delivery Room air 11/20 0920 B/P 101/56 11/20 0828 B/P Mean 0.0 11/20 0828 Temp 98.1 11/20 0828 Pulse 66 11/20 0828 Resp 16 11/20 0828 FiO2 21 11/20 0141 O2 Flow Rate 0 11/11 1601 24 hour I O ending at 0700: 11/20 0700 11/19 1900 Intake Total 300 Output Total 560 200 Balance -260 -200 Intake, Oral 300 Number Voids 3 Output, Chest 560 200 Tube Drainage Patient 75.4 kg Weight Weight Standing scale Measurement Method PATIENT WEIGHT: Weight (lb): 166 Weight (oz): 3.66 Weight (kg): 75.400 Medications: Active Meds + DC'd Last 24 Hrs Amiodarone HCl (CORDARONE) 200 MG BID PO Acetaminophen (TYLENOL) 650 MG Q4H PRN PRN PO Fentanyl Citrate (SUBLIMAZE) 0 .STK-MED ONE IV (DC) Lorazepam (ATIVAN) 0 .STK-MED ONE IV (DC) Hydromorphone HCl (DILAUDID) 0.2 MG Q6H PRN PRN IV Bisacodyl (DULCOLAX) 10 MG DAILY PRN PRN RECTAL Lidocaine (Lidocaine 4% Patch) 1 PATCH DAILY TOPICAL Tizanidine HCl (ZANAFLEX) 4 MG Q8HR PO Hydrocodone Bitart/Acetaminophen (NORCO 7.5/325 TABLET) 2 TAB Q4H PRN PRN PO Insulin Glargine (Semglee) 20 UNIT BID SUBQ Ipratropium Hazard (ATROVENT) 500 MCG RTQ2H PRN PRN INH Cyanocobalamin (Vitamin B-12 500 mcg tab) 500 MCG DAILY PO Ferrous Sulfate (FERROUS SULFATE) 325 MG DAILY PO Quetiapine Fumarate (SeroqueL) 200 MG BEDTIME PO Gabapentin (NEURONTIN) 1,200 MG TID PO Insulin Human Lispro (Admelog) 0 AC HS SUBQ Amitriptyline HCl (ELAVIL) 25 MG BEDTIME PO Naloxone HCl (NARCAN) 0.4 MG Q2M PRN PRN IV Clopidogrel Bisulfate (Plavix) 75 MG DAILY PO Polyethylene Glycol (MIRALAX) 17 GM DAILY PO Pantoprazole (PROTONIX) 40 MG DAILY@0600 PO Aspirin (ASPIRIN) 81 MG DAILY PO Atorvastatin Calcium (LIPITOR) 40 MG 2100 PO Docusate Sodium (COLACE) 100 MG BID PO Metoprolol Tartrate (LOPRESSOR) 12.5 MG Q12HR PO Sennosides (Senna Lax 8.6 MG TABLET) 17.2 MG BEDTIME PO Dextrose/Water (DEXTROSE 10% IN WATER) 125 ML ASDIR PRN IV (CKD) Dextrose/Water (DEXTROSE 10% IN WATER) 250 ML ASDIR PRN IV (CKD) Glucagon (GLUCAGON) 1 MG ASDIR PRN IM Magnesium Sulfate (MAGNESIUM SULFATE 4GM/SWFI 100ML) 100 ML ASDIR PRN IV Magnesium Sulfate (MAGNESIUM SULFATE 2GM/SWFI 50ML) 50 ML ASDIR PRN IV Magnesium Sulfate/Dextrose (MAGNESIUM SULFATE 1GM/D5W 100ML) 100 ML ASDIR PRN IV Ondansetron HCl (ZOFRAN) 4 MG Q6H PRN PRN IV Potassium Chloride (KCL 20MEQ/SWFI 100ML) 100 ML ASDIR PRN IV Fluticasone Propionate (Flonase Nasal Baxter) 2 SPRAY DAILY NASAL (CKD) Physical Exam General appearance: alert, awake, oriented, no respiratory distress Head/eyes: atraumatic, EOMI, normocephalic, PERRLA ENT: normal nose, moist mucosal membranes Neck: no JVD, supple/no meningismus Cardiovascular: regular rate rhythm, normal heart sounds, dressing over sternum Respiratory: aerating well, symmetric expansion, Chest tube x 2 Abdomen: soft, non-tender, no distention Extremities: moves all, no edema, no clubbing, no cyanosis 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, oriented X 3, normal speech, CNII-XII grossly intact Skin: dry, normal turgor, warm Psychiatry: normal affect, normal mood Diagnosis, Assessment Plan Free text A P: Patient is a 54 year old female who presents with the following: Chest pain, acute postoperative pain -S/P CABG on 11/09/24 -S/P chest tube placement x 2 11/19 -DC oxycodone 10mg q6h PRN -DC Dilaudid 4mg PO q4h PRN, pain scale 4-10 (11/15) -DC Acetaminophen 1000mg q6h (11/15) -Lidocaine patch to chest wall daily 12h on 12h off (11/16) -[place] 7.5/325 mg 2 tabs PO q4h PRN pain scale 4-10 (11/15) -Dilaudid 0.2 mg IV q6h PRN, pain scale 7-10, second line (decr dose 11/18) -stable Diabetic polyneuropathy -Amitriptyline 25mg at bedtime -Gabapentin 1200mg TID (11/11) -stable Muscle spams -DC Robaxin 500mg PO TID -DC Methocarbamol 1000mg IV q8h x 3 doses (11/14) -Tizanidine 4 mg PO q8h (11/15) -stable Insomnia -Takes seroquel 200mg QHS at home Constipation/OIC -Relistor 12 mg subq daily x 3 days (11/13, completed) -Docusate 100mg BID -Miralax 17gm daily -Senna 17.2 mg at bedtime -Dulcolax 10 mg CA daily PRN -Manageable Disposition: Okay for outpatient follow up Rx: sent electronically 11/19 [place] 7.5/325 mg PO q6h PRN #20, Narcan, Gabapentin 1200 mg PO TID, Tizanidine 4 mg PO q8h PRN Pharmacy: [facility] Past medical history: DM, HTN, CAD Past surgical history: CABG, ALAA, PP, EVH, chest tube placement x2 Family history: Noncontributory Social history: denies drugs, alcohol, smoking Allergies: NKDA All pertinent diagnostics/labs from the last 24 hours and during the course of the admission were reviewed. Plan discussed with the patient and the nurse. All questions were answered. Patient will be monitored for deleterious side effects associated with opioids and sedative medications. Medications will be adjusted further clinical course. Risks versus benefits of opioid medications were reviewed to include, but not limited to respiratory depression, accidental overdose, altered mental status, sudden , constipation which could result in bowel obstruction, seizures, withdrawal, dependency/addiction, risk for falls. Goals: Daily pain control. Case reviewed and discussed with Dr. Keith who agrees with plan of care. [place] [employer] records reviewed: Total Prescriptions 6 Total Private Pay 0 Total Prescribers 4 Total Pharmacies 2 2024 2024 1 HYDROCODONE-ACETAMIN 5-325 MG 20.00 3 [facility] [id number] [facility] ([id number]) 0 33.33 M[place] Comm [place] 2024 2024 1 TRAMADOL-ACETAMINOPHN 37.5-325 20.00 3 [facility] [id number] [facility] (096) 0 50.00 M[place] Comm Ins [place] 06/08/2023 06/08/2023 1 ACETAMINOPHEN-COD #3 TABLET 10.00 10 [facility]i [id number] [facility] ( 5448) 0 4.50 MME Comm Ins [place] [employer] (1910) [address] [place] [address] [id number] ([id number]) [address] [place] [address] at 1128 RPT #:[id number] END OF REPORT [facility] 2024-11-20 08:34:00 [facility] ([facility]) Hospitalist Progress Note REPORT#:[id number] REPORT STATUS: Signed REPORT INITIALIZATION DATE:11/20/24 TIME: 833 PATIENT: YUNIER PRATT UNIT #: [id number] ROOM/BED: [place] [id number] : 72 AGE: 54 SEX: F ATTEND: Flynn Becerra MD ADM AUTHOR: Dayanara Man MD R1 REPT SERVICE DT/TIME: 11/20/24 0834 * ALL edits or amendments must be made on the electronic/computer document * Dayanara Man 11/20/24 0834: Subjective Chief complaint: s/p chest tube insertion, fluid drained. Objective General VS/I O: Vital Signs: Date Time Temp Pulse Resp B/P B/P Pulse O2 O2 Flow FiO2 Mean Ox Delivery Rate 11/20 1648 36.6 78 16 102/65 77.2 99 11/20 1154 36.7 68 20 108/62 0.0 100 11/20 0920 96 Room air 11/20 0828 36.7 66 16 101/56 0.0 100 11/20 0444 36.5 67 15 99/58 0.0 96 11/20 0443 67 16 99/58 76 98 04/ 0141 97 Room air 21 11/20 0049 36.7 75 17 140/67 0.0 97 11/20 0047 75 22 140/67 96 100 11/19 2144 84 29 128/68 93 98 11/19 191 89 35 128/62 89 96 11/19 191 38.7 91 16 128/62 0.0 96 24 hour I O ending at 0700: 11/20 0700 11/19 1900 Intake Total 300 Output Total 560 200 Balance -260 -200 Intake, Oral 300 Number Voids 3 Output, Chest 560 200 Tube Drainage Patient 75.4 kg Weight Weight Standing scale Measurement Method PATIENT WEIGHT: Weight (lb): 166 Weight (oz): 3.66 Weight (kg): 75.400 Medications: Active Meds + DC'd Last 24 Hrs Lorazepam (ATIVAN) 0.5 MG Q8H PRN PRN PO Amiodarone HCl (CORDARONE) 200 MG BID PO Acetaminophen (TYLENOL) 650 MG Q4H PRN PRN PO Hydromorphone HCl (DILAUDID) 0.2 MG Q6H PRN PRN IV Bisacodyl (DULCOLAX) 10 MG DAILY PRN PRN RECTAL Lidocaine (Lidocaine 4% Patch) 1 PATCH DAILY TOPICAL Tizanidine HCl (ZANAFLEX) 4 MG Q8HR PO Hydrocodone Bitart/Acetaminophen (NORCO 7.5/325 TABLET) 2 TAB Q4H PRN PRN PO Insulin Glargine (Semglee) 20 UNIT BID SUBQ Ipratropium Hazard (ATROVENT) 500 MCG RTQ2H PRN PRN INH Cyanocobalamin (Vitamin B-12 500 mcg tab) 500 MCG DAILY PO Ferrous Sulfate (FERROUS SULFATE) 325 MG DAILY PO Quetiapine Fumarate (SeroqueL) 200 MG BEDTIME PO Gabapentin (NEURONTIN) 1,200 MG TID PO Insulin Human Lispro (Admelog) 0 AC HS SUBQ Amitriptyline HCl (ELAVIL) 25 MG BEDTIME PO Naloxone HCl (NARCAN) 0.4 MG Q2M PRN PRN IV Clopidogrel Bisulfate (Plavix) 75 MG DAILY PO Polyethylene Glycol (MIRALAX) 17 GM DAILY PO Pantoprazole (PROTONIX) 40 MG DAILY@0600 PO Aspirin (ASPIRIN) 81 MG DAILY PO Atorvastatin Calcium (LIPITOR) 40 MG 2100 PO Docusate Sodium (COLACE) 100 MG BID PO Metoprolol Tartrate (LOPRESSOR) 12.5 MG Q12HR PO Sennosides (Senna Lax 8.6 MG TABLET) 17.2 MG BEDTIME PO Dextrose/Water (DEXTROSE 10% IN WATER) 125 ML ASDIR PRN IV (CKD) Dextrose/Water (DEXTROSE 10% IN WATER) 250 ML ASDIR PRN IV (CKD) Glucagon (GLUCAGON) 1 MG ASDIR PRN IM Magnesium Sulfate (MAGNESIUM SULFATE 4GM/SWFI 100ML) 100 ML ASDIR PRN IV Magnesium Sulfate (MAGNESIUM SULFATE 2GM/SWFI 50ML) 50 ML ASDIR PRN IV Magnesium Sulfate/Dextrose (MAGNESIUM SULFATE 1GM/D5W 100ML) 100 ML ASDIR PRN IV Ondansetron HCl (ZOFRAN) 4 MG Q6H PRN PRN IV Potassium Chloride (KCL 20MEQ/SWFI 100ML) 100 ML ASDIR PRN IV Fluticasone Propionate (Flonase Nasal Baxter) 2 SPRAY DAILY NASAL (CKD) Physical Exam Head/Eyes: atraumatic, normocephalic ENT: moist mucosal membranes, normal dentition Neck: full range of motion, supple/no meningismus Cardiovascular: normal heart sounds, regular rate rhythm, no murmur Respiratory: aerating well, clear to auscultation, symmetric expansion, no distress Abdomen: non-tender, soft, no distention, no guarding, no rebound Extremities: moves all, no edema 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, oriented X 3, CNII-XII intact, no motor deficits, no sensory deficits Skin: dry, intact, no rash Psychiatry: normal affect, normal mood Results Findings/Data: Laboratory Tests 11/20 11/20 11/20 11/19 1646 1154 0826 2153 Chemistry POC Glucose (70 - 110 MG/DL) 177 H 221 H 173 H 200 H Radiology data: Recent Impressions: RADIOLOGY - XR CHEST 1 V 11/20 1008 Report Impression - Status: SIGNED Entered: 11/20/2024 1009 impression: Bilateral pigtail pleural chest tubes remain in place with significant interval decrease in size of bilateral pleural effusions with only trace residual fluid. There is mild CHF pattern with cardiomegaly and pulmonary vascular congestion. Cardiac and mediastinal silhouettes otherwise appear stable. Significantly improved aeration of the lung bases with only mild bibasilar subsegmental atelectasis. There are trace biapical pneumothoraces. No acute bony abnormality or other remarkable changes compared to prior study. Impression By: Jackeline Gonzalez D.O. Diagnosis, Assessment Plan Hospital course to date: 11/10- POD #1 CABG. c/o post op pain. d/w CV surgery team and pain management consulted 11/11- POD #2 CABG. pain is much better controlled. possibly transfer out of CCU today. chest tubes out yesterday.lasix x1 today 11/12: POD #3. Hyperglycemia improved after adding Lantus 15 BID. 11/13: Hb 6.6 today. 2 units RBC transfused. HIT panel postive, Heme Onc consulted and RACHELLE panel sent. CXR shows diffsue congestive changes. Venous doppler negative. 11/15-11/17: Fecal occult blood and RACHELLE pending 11/19: US for pleural effusion was done due to SOB, shows that there is increasing effusion, IR has been consulted to place CORNELL pigtails. 11/20: s/p CORNELL pigtails, reduction in effusion, will DC according to CTS. RACHELLE negative. Consultants: cardiology, cardiovascular surgery Free Text DxA P Notes Free text DxA P notes: 54 yo F w PMHx of HTN, DM presented for evaluation of SOB and chest pain at [facility]. Patient was found to have NSTEMI. 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 Patient was transported to [facility] for CABG evaluation. Assessment and Plan CORNELL pleural effusion: -As seen on US -s/p Ultrasound guided pleural drain placement (11/19) -s/p CORNELL pigtails, reduction in effusion, will DC according to CTS. Heparin Induced Thrombocytopenia -As per Hematology and CTS anticoagulation, will hold off on argatroban but watch closely for any thrombosis, platelet counts and await RACHELLE testing result. -Platelets 94>61>114>118 -HIT panel positive, RACHELLE negative. 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 FEV1 is 60% of predicted. Ratio is normal. History of Diabetes Mellitus Type-2, Uncontrolled - HGB A1c 8.0 - Blood sugar monitoring - Lantus 20 BID - Insulin SS History of Diabetic Neuropathy - Continue Gabapentin 1,200MG PO TID (verified) - Continue home Cymbalta History of Anxiety - Continue Seroquel 200MG PO bedtime Pleural effusions -U/S - may need pig tail catheter. Diet: Regular DVT ppx: Heparin gtt Pepcid FULL CODE Dispo: CORNELL pigtails in place, will DC acording to CTS. Flynn Becerra 11/20/242124: Attestations Teaching Physician Attestation F/U visit w/o resident: I personally saw the patient and reviewed the resident's note. I agree with the resident's findings and plan. at 1739 at 2132 RPT #:[id number] END OF REPORT [facility] 2024-11-20 08:05:00 [facility] ([facility]) Int. Radiology Progress Note REPORT#:[id number] REPORT STATUS: Signed REPORT INITIALIZATION DATE:11/20/24 TIME: 804 PATIENT: YUNIER PRATT UNIT #: [id number] ROOM/BED: [place] [id number] : 72 AGE: 54 SEX: F ATTEND: Flynn Becerra MD ADM AUTHOR: Vito Buitrago REPT SERVICE DT/TIME: 11/20/24 0805 * ALL edits or amendments must be made on the electronic/computer document * General Date of Procedure: 11/19/24 Status post: bilateral chest drain placement for post-op pleural effusions Subjective Chief complaint: SOB Patient reports: improved breathing, pain at both tube sites on posterior chest Review of Systems All systems rev neg: except as marked Objective General VS/I O: Last Documented: Result Date Time Pulse Ox 96 11/20 0444 B/P 99/58 11/20 0444 B/P Mean 0.0 11/20 0444 Temp 36.5 11/20 0444 Pulse 67 11/20 0444 Resp 15 11/20 0444 FiO2 21 11/20 0141 O2 Delivery Room air 11/20 014 O2 Flow Rate 0 11/11 1601 24 hour I O ending at 0700: 11/20 0700 11/19 1900 Intake Total 300 Output Total 560 200 Balance -260 -200 Intake, Oral 300 Number Voids 3 Output, Chest 560 200 Tube Drainage Patient 75.4 kg Weight Weight Standing scale Measurement Method PATIENT WEIGHT: Weight (lb): 166 Weight (oz): 3.66 Weight (kg): 75.400 Medications: Active Meds + DC'd Last 24 Hrs Amiodarone HCl (CORDARONE) 200 MG BID PO Acetaminophen (TYLENOL) 650 MG Q4H PRN PRN PO Fentanyl Citrate (SUBLIMAZE) 0 .STK-MED ONE IV (DC) Lorazepam (ATIVAN) 0 .STK-MED ONE IV (DC) Lidocaine HCl (XYLOCAINE) 0 .STK-MED ONE LOCAL (DC) Hydromorphone HCl (DILAUDID) 0.2 MG Q6H PRN PRN IV Bisacodyl (DULCOLAX) 10 MG DAILY PRN PRN RECTAL Lidocaine (Lidocaine 4% Patch) 1 PATCH DAILY TOPICAL Tizanidine HCl (ZANAFLEX) 4 MG Q8HR PO Hydrocodone Bitart/Acetaminophen (NORCO 7.5/325 TABLET) 2 TAB Q4H PRN PRN PO Insulin Glargine (Semglee) 20 UNIT BID SUBQ Ipratropium Hazard (ATROVENT) 500 MCG RTQ2H PRN PRN INH Cyanocobalamin (Vitamin B-12 500 mcg tab) 500 MCG DAILY PO Ferrous Sulfate (FERROUS SULFATE) 325 MG DAILY PO Quetiapine Fumarate (SeroqueL) 200 MG BEDTIME PO Gabapentin (NEURONTIN) 1,200 MG TID PO Insulin Human Lispro (Admelog) 0 AC HS SUBQ Amitriptyline HCl (ELAVIL) 25 MG BEDTIME PO Naloxone HCl (NARCAN) 0.4 MG Q2M PRN PRN IV Clopidogrel Bisulfate (Plavix) 75 MG DAILY PO Polyethylene Glycol (MIRALAX) 17 GM DAILY PO Pantoprazole (PROTONIX) 40 MG DAILY@0600 PO Aspirin (ASPIRIN) 81 MG DAILY PO Amiodarone HCl (CORDARONE) 200 MG TID PO (DC) Atorvastatin Calcium (LIPITOR) 40 MG 2100 PO Docusate Sodium (COLACE) 100 MG BID PO Metoprolol Tartrate (LOPRESSOR) 12.5 MG Q12HR PO Sennosides (Senna Lax 8.6 MG TABLET) 17.2 MG BEDTIME PO Dextrose/Water (DEXTROSE 10% IN WATER) 125 ML ASDIR PRN IV (CKD) Dextrose/Water (DEXTROSE 10% IN WATER) 250 ML ASDIR PRN IV (CKD) Glucagon (GLUCAGON) 1 MG ASDIR PRN IM Magnesium Sulfate (MAGNESIUM SULFATE 4GM/SWFI 100ML) 100 ML ASDIR PRN IV Magnesium Sulfate (MAGNESIUM SULFATE 2GM/SWFI 50ML) 50 ML ASDIR PRN IV Magnesium Sulfate/Dextrose (MAGNESIUM SULFATE 1GM/D5W 100ML) 100 ML ASDIR PRN IV Ondansetron HCl (ZOFRAN) 4 MG Q6H PRN PRN IV Potassium Chloride (KCL 20MEQ/SWFI 100ML) 100 ML ASDIR PRN IV Fluticasone Propionate (Flonase Nasal Baxter) 2 SPRAY DAILY NASAL (CKD) Physical Exam General appearance: alert, awake, oriented Wound/incision: Location: bilateral chest Site condition: dressing clean dry, dressing intact HEENT: anicteric Cardiovascular: regular rate rhythm Respiratory: no distress, no tenderness, symmetric expansion Abdomen: soft, non-tender, no rebound Musculoskeletal: normal inspection 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, oriented X 3 Results Findings/Data: Laboratory Tests: 11/20 11/20 11/19 11/19 1154 0826 2153 1531 Chemistry POC Glucose (70 - 110 MG/DL) 221 H 173 H 200 H 172 H Recent Impressions: RADIOLOGY - XR CHEST 1 V 11/20 1008 Report Impression - Status: SIGNED Entered: 11/20/2024 1009 impression: Bilateral pigtail pleural chest tubes remain in place with significant interval decrease in size of bilateral pleural effusions with only trace residual fluid. There is mild CHF pattern with cardiomegaly and pulmonary vascular congestion. Cardiac and mediastinal silhouettes otherwise appear stable. Significantly improved aeration of the lung bases with only mild bibasilar subsegmental atelectasis. There are trace biapical pneumothoraces. No acute bony abnormality or other remarkable changes compared to prior study. Impression By: MitchABNba Gonzalez D.O. Results: labs reviewed, vital signs reviewed, x-ray personally reviewed Diagnosis, Assessment Plan Problem List/A P: 1. CAD (coronary artery disease) 2. Pleural effusion 3. S/P CABG x 5 Consultants: cardiology, cardiovascular surgery Free Text DxA P Notes: Tubes in place, dramatic reduction in bilat effusions, now trace bilaterally. Patient reports pain at both sites of tube insertion. Given that the effusion appear largely resolved, tube removal can occur whenever primary team is willing. Patient otherwise no complaints. at 1343 RPT #:[id number] END OF REPORT [facility] 2024-11-19 14:10:00 [facility] Cardiology Progress Note REPORT#:[id number] REPORT STATUS: Signed REPORT INITIALIZATION DATE:11/19/24 TIME: 1410 PATIENT: YUNIER PRATT UNIT #: [id number] ROOM/BED: [place] [id number] : 74 AGE: 54 SEX: F ATTEND: Flynn Becerra MD ADM AUTHOR: Judi Diaz MD R2 REPT SERVICE DT/TIME: 11/19/24 1410 * ALL edits or amendments must be made on the electronic/computer document * Subjective Chief complaint: Shortness of breath and chest pain HPI: 54 YO patient with MH of HTN, DM, neuropathy, tobacco abuse who presented at [facility] with shortness of breath and chest pain. She was ruled for NSTEMI, had LHC which revealed multivessed CAD. She is transferred to [facility] for CABG evaluation. Comments: Has pain on the right side of chest, where pigtail drain placed this am. Review of Systems All systems rev neg: except as marked Objective General VS/I O: 24 hour I O ending at 0700: 11/19 0700 11/18 1900 Intake Total Output Total Balance Output, Emesis Patient 78 kg Weight Weight Standing scale Measurement Method Vital Signs: Date Time Temp Pulse Resp B/P B/P Pulse O2 O2 Flow FiO2 Mean Ox Delivery Rate 11/19 1239 37.1 75 14 110/62 0.0 98 Room air 11/19 0807 37.2 78 15 125/73 0.0 92 Room air 11/19 0435 36.8 76 19 130/62 0.0 100 Room air 11/19 0049 36.6 76 23 124/69 0.0 91 Room air 11/18 2305 97 Room air 21 11/18 1914 37.5 87 30 155/77 0.0 96 Room air 11/18 1717 37.3 81 24 138/64 0.0 92 Room air PATIENT WEIGHT: Weight (lb): 171 Weight (oz): 15.37 Weight (kg): 78.000 Medications: Active Meds + DC'd Last 24 Hrs Amiodarone HCl (CORDARONE) 200 MG BID PO Fentanyl Citrate (SUBLIMAZE) 0 .STK-MED ONE IV (DC) Lorazepam (ATIVAN) 0 .STK-MED ONE IV (DC) Lidocaine HCl (XYLOCAINE) 0 .STK-MED ONE LOCAL (DC) Hydromorphone HCl (DILAUDID) 0.2 MG Q6H PRN PRN IV Furosemide (LASIX 20MG INJ) 20 MG BID 9A 5P IV (DC) Bisacodyl (DULCOLAX) 10 MG DAILY PRN PRN RECTAL Lidocaine (Lidocaine 4% Patch) 1 PATCH DAILY TOPICAL Tizanidine HCl (ZANAFLEX) 4 MG Q8HR PO Hydrocodone Bitart/Acetaminophen (NORCO 7.5/325 TABLET) 2 TAB Q4H PRN PRN PO Insulin Glargine (Semglee) 20 UNIT BID SUBQ Ipratropium Hazard (ATROVENT) 500 MCG RTQ2H PRN PRN INH Cyanocobalamin (Vitamin B-12 500 mcg tab) 500 MCG DAILY PO Ferrous Sulfate (FERROUS SULFATE) 325 MG DAILY PO Quetiapine Fumarate (SeroqueL) 200 MG BEDTIME PO Gabapentin (NEURONTIN) 1,200 MG TID PO Insulin Human Lispro (Admelog) 0 AC HS SUBQ Amitriptyline HCl (ELAVIL) 25 MG BEDTIME PO Naloxone HCl (NARCAN) 0.4 MG Q2M PRN PRN IV Clopidogrel Bisulfate (Plavix) 75 MG DAILY PO Polyethylene Glycol (MIRALAX) 17 GM DAILY PO Pantoprazole (PROTONIX) 40 MG DAILY@0600 PO Aspirin (ASPIRIN) 81 MG DAILY PO Amiodarone HCl (CORDARONE) 200 MG TID PO (DC) Atorvastatin Calcium (LIPITOR) 40 MG 2100 PO Docusate Sodium (COLACE) 100 MG BID PO Metoprolol Tartrate (LOPRESSOR) 12.5 MG Q12HR PO Sennosides (Senna Lax 8.6 MG TABLET) 17.2 MG BEDTIME PO Dextrose/Water (DEXTROSE 10% IN WATER) 125 ML ASDIR PRN IV (CKD) Dextrose/Water (DEXTROSE 10% IN WATER) 250 ML ASDIR PRN IV (CKD) Glucagon (GLUCAGON) 1 MG ASDIR PRN IM Magnesium Sulfate (MAGNESIUM SULFATE 4GM/SWFI 100ML) 100 ML ASDIR PRN IV Magnesium Sulfate (MAGNESIUM SULFATE 2GM/SWFI 50ML) 50 ML ASDIR PRN IV Magnesium Sulfate/Dextrose (MAGNESIUM SULFATE 1GM/D5W 100ML) 100 ML ASDIR PRN IV Ondansetron HCl (ZOFRAN) 4 MG Q6H PRN PRN IV Potassium Chloride (KCL 20MEQ/SWFI 100ML) 100 ML ASDIR PRN IV Fluticasone Propionate (Flonase Nasal Baxter) 2 SPRAY DAILY NASAL (CKD) Physical Exam Head/Eyes: atraumatic, normocephalic Neck: non-tender, no JVD Cardiovascular: CV assessment: regular rate and rhythm Respiratory: accessory muscle use (B/L chest tube placed ), decreased breath sounds, shortness of breath, mild SOB Abdomen: soft, non-tender, normal bowel sounds, no distention Genitourinary: no flank pain, no urinary catheter Lower extremity: LE assessment: no edema Musculoskeletal: normal inspection 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, oriented X 3, normal speech Skin: dry, intact, normal color Psychiatry: normal affect, normal judgment/insight, normal mood Results Findings/Data: Laboratory Tests 11/19 11/19 11/18 11/18 1237 0805 1917 1714 Chemistry POC Glucose (70 - 110 MG/DL) 193 H 174 H 104 181 H Radiology data: Recent Impressions: RADIOLOGY - XR CHEST 1 V 11/19 1131 Report Impression - Status: SIGNED Entered: 11/19/2024 1352 IMPRESSION: Uneventful placement of bilateral thoracostomy tubes with some improvement in pleural effusions. CHF with effusions noted. Impression By: Fern - Jordan Galindo M.D. Diagnosis, Assessment Plan Consultants: cardiology, cardiovascular surgery Free Text DxA P Notes Free Text DxA P Notes: 54 YO patient with MH of HTN, DM, neuropathy, tobacco abuse who presented at [facility] with shortness of breath and chest pain. She was ruled for NSTEMI, had LHC which revealed multivessed CAD. She is transferred to [facility] for CABG evaluation. # NSTEMI/Multivessel CAD Post op day 10 * Echo LVEF 50-54%, G1DD, mild MR * Plavix ASA, BB, statin * S/p CABG 11/09/2024 (ASH-LAD, SVG-OM1, SVG-OM2, SVG-Diag, SVG-PDA) and ALAA and posterior periocardiotomy and Endoscopic vein harvest bilateral greater saphenous vein. 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 - No heparin products. - Per heme hold off on argatroban but watch closely for thrombosis. - Platelets 61K->114K->103K> 133k # Bilateral pleural effusions - CXR reviewed, bilateral pleural effusions, US shows moderate bilateral effusions, - IR placed b/l pigtail 11/19. 20 ml of thin blood tinged fluid aspirated from each side. Has pain on the right side. - Pain management following. # Postoperative anemia - Hemoglobin 6.6-> 9.9 - s/p 2 units PRBC 11/14 # Acute Diastolic CHF, present to admission - LVEF 50-54% - cont GDMT at 1424 RPT #:[id number] END OF REPORT [facility] 2024-11-19 11:44:00 [facility] ([facility]) Brief Op Note REPORT#:[id number] REPORT STATUS: Signed REPORT INITIALIZATION DATE:11/19/24 TIME: 1143 PATIENT: YUNIER PRATT UNIT #: [id number] ROOM/BED: [place] [id number] : 72 AGE: 54 SEX: F ATTEND: Flynn Becerra MD ADM AUTHOR: Vito Buitrago REPT SERVICE DT/TIME: 11/19/24 1144 * ALL edits or amendments must be made on the electronic/computer document * Op/Inv Proc Note - Brief Pre-procedure diagnosis: bilateral pleural effusion Post-procedure diagnosis: same as pre procedure dx Procedures performed: Ultrasound guided pleural drain placement Primary Surgeon: Ravi Buitrago. MELANIE Bag Mender(s): none Anesthesia: local anesthesia, IV analgesia, IV anxiolytic Findings: The risks and benefits of drain placement were discussed and consent was granted. Risks of bleeding, infection, damage to lung or adjacent structures was discussed and patient s questions were answered. Risks of sedation anesthesia were discussed and consent was granted. Sedation: Local anes and IV analgesia. Patient received 50 mcg fentanyl IV during procedure. Patient received 0.5 mg ativan IV prior to procedure for anxiety. Time out was performed. Procedure site was selected using imaging. Each site was prepped and draped in the usual fashion. 1% lidocaine was used to anesthetize the site and needle tract. On the right side, an 18G chiba needle was used to access the pleural cavity. An amplatz wire was guided through the chiba into the thorax. Tract was dilated and a 10 Chadian drain was guided into the thorax. Pleural fluid was aspirated with vacuum suction. The procedure was then repeated for the left sided effusion. Each drain was sutured in place and attached to pleurevac suction. There were no complications. The patient left the room in good condition. 20 mL of thin blood tinged fluid were aspirated from each side. Complications: none Estimated blood loss in ml's: none Specimens removed/altered: none at 1150 RPT #:[id number] END OF REPORT [facility] 2024-11-19 10:24:00 [facility] ([facility]) Pain Management Progress Note REPORT#:[id number] REPORT STATUS: Signed REPORT INITIALIZATION DATE:11/19/24 TIME: 1024 PATIENT: YUNIER PRATT UNIT #: [id number] ROOM/BED: [place] [id number] : 72 AGE: 54 SEX: F ATTEND: Flynn Becerra MD ADM AUTHOR: Alejandro Cabrera JOB COACH/JOB DEVELOPER REPT SERVICE DT/TIME: 11/19/24 1024 * ALL edits or amendments must be made on the electronic/computer document * Subjective Chief complaint: Patient seen and examined. Chart/MAR reviewed Patient states that the pain occurs throughout the day and night, but the medication appears to remain effective. No side effects are noted. Regimen was reviewed. Has SOB due to pleural effusion. Going for a thoracentesis. Will send discharge Rx. Patient being seen for chest pain, acute postoperative pain, diabetic polyneuropathy, muscle spasms, constipation/OIC Patient is still requiring medications to help with managing current problems Patient is requiring IV narcotics to help manage breakthrough pain No fever/chills, chest pain, orthopnea, nausea/vomiting, pruritus, or hallucinations. 14-point ROS undertaken and is unremarkable except as noted. Objective General VS/I O: Vital Signs Date Temp Pulse Resp B/P B/P Mean Pulse Ox FiO2 11/18-11/19 97.9-99.5 76-87 15-30 124-155/62-77 0.0-95 91-100 21 Last Documented: Result Date Time Pulse Ox 92 11/19 0807 B/P 125/73 11/19 0807 B/P Mean 0.0 11/19 0807 O2 Delivery Room air 11/19 0807 Temp 99.0 11/19 0807 Pulse 78 11/19 0807 Resp 15 11/19 0807 FiO2 21 11/18 2305 O2 Flow Rate 0 11/11 1601 24 hour I O ending at 0700: 11/19 0700 11/18 1900 Intake Total Output Total Balance Output, Emesis Patient 78 kg Weight Weight Standing scale Measurement Method PATIENT WEIGHT: Weight (lb): 171 Weight (oz): 15.37 Weight (kg): 78.000 Medications: Active Meds + DC'd Last 24 Hrs Amiodarone HCl (CORDARONE) 200 MG BID PO Lidocaine HCl (XYLOCAINE) 0 .STK-MED ONE .ROUTE (DC) Hydromorphone HCl (DILAUDID) 0.2 MG Q6H PRN PRN IV Furosemide (LASIX 20MG INJ) 20 MG BID 9A 5P IV (DC) Bisacodyl (DULCOLAX) 10 MG DAILY PRN PRN RECTAL Lidocaine (Lidocaine 4% Patch) 1 PATCH DAILY TOPICAL Tizanidine HCl (ZANAFLEX) 4 MG Q8HR PO Hydrocodone Bitart/Acetaminophen (NORCO 7.5/325 TABLET) 2 TAB Q4H PRN PRN PO Hydromorphone HCl (DILAUDID) 0.5 MG Q6H PRN PRN IV (DC) Insulin Glargine (Semglee) 20 UNIT BID SUBQ Ipratropium Hazard (ATROVENT) 500 MCG RTQ2H PRN PRN INH Cyanocobalamin (Vitamin B-12 500 mcg tab) 500 MCG DAILY PO Ferrous Sulfate (FERROUS SULFATE) 325 MG DAILY PO Quetiapine Fumarate (SeroqueL) 200 MG BEDTIME PO Gabapentin (NEURONTIN) 1,200 MG TID PO Insulin Human Lispro (Admelog) 0 AC HS SUBQ Amitriptyline HCl (ELAVIL) 25 MG BEDTIME PO Naloxone HCl (NARCAN) 0.4 MG Q2M PRN PRN IV Clopidogrel Bisulfate (Plavix) 75 MG DAILY PO Polyethylene Glycol (MIRALAX) 17 GM DAILY PO Pantoprazole (PROTONIX) 40 MG DAILY@0600 PO Aspirin (ASPIRIN) 81 MG DAILY PO Amiodarone HCl (CORDARONE) 200 MG TID PO (DC) Atorvastatin Calcium (LIPITOR) 40 MG 2100 PO Docusate Sodium (COLACE) 100 MG BID PO Metoprolol Tartrate (LOPRESSOR) 12.5 MG Q12HR PO Sennosides (Senna Lax 8.6 MG TABLET) 17.2 MG BEDTIME PO Dextrose/Water (DEXTROSE 10% IN WATER) 125 ML ASDIR PRN IV (CKD) Dextrose/Water (DEXTROSE 10% IN WATER) 250 ML ASDIR PRN IV (CKD) Glucagon (GLUCAGON) 1 MG ASDIR PRN IM Magnesium Sulfate (MAGNESIUM SULFATE 4GM/SWFI 100ML) 100 ML ASDIR PRN IV Magnesium Sulfate (MAGNESIUM SULFATE 2GM/SWFI 50ML) 50 ML ASDIR PRN IV Magnesium Sulfate/Dextrose (MAGNESIUM SULFATE 1GM/D5W 100ML) 100 ML ASDIR PRN IV Ondansetron HCl (ZOFRAN) 4 MG Q6H PRN PRN IV Potassium Chloride (KCL 20MEQ/SWFI 100ML) 100 ML ASDIR PRN IV Fluticasone Propionate (Flonase Nasal Baxter) 2 SPRAY DAILY NASAL (CKD) Physical Exam General appearance: alert, awake, oriented Head/eyes: atraumatic, EOMI, normocephalic, PERRLA ENT: normal nose, moist mucosal membranes Neck: no JVD, supple/no meningismus Cardiovascular: regular rate rhythm, normal heart sounds, dressing over sternum Respiratory: aerating well, symmetric expansion Abdomen: soft, non-tender, no distention Extremities: moves all, no edema, no clubbing, no cyanosis 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, oriented X 3, normal speech, CNII-XII grossly intact Skin: dry, normal turgor, warm Psychiatry: normal affect, normal mood Results Findings/data: Laboratory Tests: 11/19 11/18 11/18 11/18 0805 1917 1714 1110 Chemistry POC Glucose (70 - 110 MG/DL) 174 H 104 181 H 197 H Recent Impressions: ULTRASOUND - US SOFT TISSUE TORSO 11/18 1241 Report Impression - Status: SIGNED Entered: 11/18/2024 1350 IMPRESSION: Moderate-sized bilateral pleural effusions are seen with evidence of volume loss in both lower lobes. Impression By: [email or web address] - David Ashby M.D. Diagnosis, Assessment Plan Free text A P: Patient is a 54 year old female who presents with the following: Chest pain, acute postoperative pain -S/P CABG on 11/09/24 -DC oxycodone 10mg q6h PRN -DC Dilaudid 4mg PO q4h PRN, pain scale 4-10 (11/15) -DC Acetaminophen 1000mg q6h (11/15) -Lidocaine patch to chest wall daily 12h on 12h off (11/16) -[place] 7.5/325 mg 2 tabs PO q4h PRN pain scale 4-10 (11/15) -Dilaudid 0.2 mg IV q6h PRN, pain scale 7-10, second line (decr dose 11/18) -stable Diabetic polyneuropathy -Amitriptyline 25mg at bedtime -Gabapentin 1200mg TID (11/11) -stable Muscle spams -DC Robaxin 500mg PO TID -DC Methocarbamol 1000mg IV q8h x 3 doses (11/14) -Tizanidine 4 mg PO q8h (11/15) -stable Insomnia -Takes seroquel 200mg QHS at home Constipation/OIC -Relistor 12 mg subq daily x 3 days (11/13, completed) -Docusate 100mg BID -Miralax 17gm daily -Senna 17.2 mg at bedtime -Dulcolax 10 mg CA daily PRN -Manageable Disposition: Okay for outpatient follow up Rx: sent electronically 11/19 [place]age 7.5/325 mg PO q6h PRN #20, Narcan, Gabapentin 1200 mg PO TID, Tizanidine 4 mg PO q8h PRN [facility]: [facility] Past medical history: DM, HTN, CAD Past surgical history: CABG, ALAA, PP, EVH Family history: Noncontributory Social history: denies drugs, alcohol, smoking Allergies: NKDA All pertinent diagnostics/labs from the last 24 hours and during the course of the admission were reviewed. Plan discussed with the patient and the nurse. All questions were answered. Patient will be monitored for deleterious side effects associated with opioids and sedative medications. Medications will be adjusted further clinical course. Risks versus benefits of opioid medications were reviewed to include, but not limited to respiratory depression, accidental overdose, altered mental status, sudden , constipation which could result in bowel obstruction, seizures, withdrawal, dependency/addiction, risk for falls. Goals: Daily pain control. Case reviewed and discussed with Dr. Keith who agrees with plan of care. [facility] records reviewed: Total Prescriptions 6 Total Private Pay 0 Total Prescribers 4 Total Pharmacies 2 2024 2024 1 HYDROCODONE-ACETAMIN 5-325 MG 20.00 3 Pa Tho [id number] Merged With [facility] (1910) 0 33.33 MME Comm Ins [place] 2024 2024 1 TRAMADOL-ACETAMINOPHN 37.5-325 20.00 3 Pa Tho [id number] [facility] (8925) 0 50.00 MME Comm Ins [place] 06/08/2023 06/08/2023 1 ACETAMINOPHEN-COD #3 TABLET 10.00 10 Ma Gopi [id number] b ( 5115) 0 4.50 MME Comm Ins [place] [employer] (1910) [address] [facility] [id number] [id number] [phone] [address] [facility] [address] at 1326 RPT #:[id number] END OF REPORT [facility] 2024-11-19 09:09:00 [facility] Cardiothoracic Surgery Prog REPORT#:[id number] REPORT STATUS: Signed REPORT INITIALIZATION DATE:11/19/24 TIME: 908 PATIENT: YUNIER PRATT UNIT #: [id number] ROOM/BED: [place] [id number] : 72 AGE: 54 SEX: F ATTEND: Flynn Becerra MD ADM AUTHOR: Talita Monzon REPT SERVICE DT/TIME: 11/19/24 0909 * ALL edits or amendments must be made on the electronic/computer document * General Post-op: day 10 Status post: 11/09/24 1. Coronary artery bypass graft surgery x5 (ASH to LAD, saphenous vein to diagonal, saphenous vein to first marginal, saphenous vein to second marginal, saphenous vein to PDA). 2. Amputation of left atrial appendage. 3. Endoscopic vein harvest bilateral greater saphenous vein. 4. Posterior pericardiotomy. Subjective Chief complaint: Post op Review of Systems Constitutional: Reports: fatigue, generalized weakness. Denies: chills, fever. Skin: Denies: abrasion. Eyes: Denies: redness. ENT: Denies: ear drainage. Respiratory: Denies: HARTMAN (dyspnea on exertion), hemoptysis, non productive cough, SOB. Cardiovascular: Denies: chest pain, HARTMAN (dyspnea on exertion), edema. GI: Denies: abdominal pain. : Denies: dysuria. Musculoskeletal: Denies: arthritis. Heme: Denies: adenopathy, bleeding. All systems rev neg: except as marked Objective General VS/I O Last Documented: Result Date Time Pulse Ox 92 11/19 0807 B/P 125/73 11/19 0807 B/P Mean 0.0 11/19 0807 O2 Delivery Room air 11/19 0807 Temp 99.0 11/19 0807 Pulse 78 11/19 0807 Resp 15 11/19 0807 FiO2 21 11/18 2305 O2 Flow Rate 0 11/11 1601 24 hour I O ending at 0700: 11/19 0700 11/18 1900 Intake Total Output Total Balance Output, Emesis Patient 78 kg Weight Weight Standing scale Measurement Method PATIENT WEIGHT: Weight (lb): 171 Weight (oz): 15.37 Weight (kg): 78.000 Dietitian Nutrition assessment The data set between the solid lines has been imported from the dietitian's assessment. BMI Calculated: 27.8 Nutrition related diagnosis: Nutrition diagnosis details: Nutrition problem: Increased nutrient needs Nutrition etiology: Decreased/poor appetite, Decreased intake, Chronic disease Nutrition signs and symptoms: Mild muscle loss, 20% or more weight loss, S/P SURGERY Nutrition prescription: RECOMMEND: 1. RECOMMEND A CCD5 CARDIAC DIET. 2. RECOMMEND GLUCERNA TID WITH MEALS. Dietitian name: Evelin Perez, DIET Assessment completed: 11/16/24 Physical Exam General appearance: alert, awake, oriented Wound/incision: Location: sternum Site condition: incision intact, no changes in wound, no drainage HEENT: mucosal membranes moist, pupils reactive to light Neck: full range of motion, non-tender Cardiovascular: regular rate rhythm Respiratory: symmetric expansion, no distress Abdomen: soft, non-tender Extremities: dry, moves all 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, oriented X 3 Skin: dry, intact Current Medications Medications: Active Meds + DC'd Last 24 Hrs Amiodarone HCl (CORDARONE) 200 MG BID PO (UNVr) Hydromorphone HCl (DILAUDID) 0.2 MG Q6H PRN PRN IV Furosemide (LASIX 20MG INJ) 20 MG BID 9A 5P IV (DC) Bisacodyl (DULCOLAX) 10 MG DAILY PRN PRN RECTAL Lidocaine (Lidocaine 4% Patch) 1 PATCH DAILY TOPICAL Tizanidine HCl (ZANAFLEX) 4 MG Q8HR PO Hydrocodone Bitart/Acetaminophen (NORCO 7.5/325 TABLET) 2 TAB Q4H PRN PRN PO Hydromorphone HCl (DILAUDID) 0.5 MG Q6H PRN PRN IV (DC) Insulin Glargine (Semglee) 20 UNIT BID SUBQ Ipratropium Hazard (ATROVENT) 500 MCG RTQ2H PRN PRN INH Cyanocobalamin (Vitamin B-12 500 mcg tab) 500 MCG DAILY PO Ferrous Sulfate (FERROUS SULFATE) 325 MG DAILY PO Quetiapine Fumarate (SeroqueL) 200 MG BEDTIME PO Gabapentin (NEURONTIN) 1,200 MG TID PO Insulin Human Lispro (Admelog) 0 AC HS SUBQ Amitriptyline HCl (ELAVIL) 25 MG BEDTIME PO Naloxone HCl (NARCAN) 0.4 MG Q2M PRN PRN IV Clopidogrel Bisulfate (Plavix) 75 MG DAILY PO Polyethylene Glycol (MIRALAX) 17 GM DAILY PO Pantoprazole (PROTONIX) 40 MG DAILY@0600 PO Aspirin (ASPIRIN) 81 MG DAILY PO Amiodarone HCl (CORDARONE) 200 MG TID PO (DCr) Atorvastatin Calcium (LIPITOR) 40 MG 2100 PO Docusate Sodium (COLACE) 100 MG BID PO Metoprolol Tartrate (LOPRESSOR) 12.5 MG Q12HR PO Sennosides (Senna Lax 8.6 MG TABLET) 17.2 MG BEDTIME PO Dextrose/Water (DEXTROSE 10% IN WATER) 125 ML ASDIR PRN IV (CKD) Dextrose/Water (DEXTROSE 10% IN WATER) 250 ML ASDIR PRN IV (CKD) Glucagon (GLUCAGON) 1 MG ASDIR PRN IM Magnesium Sulfate (MAGNESIUM SULFATE 4GM/SWFI 100ML) 100 ML ASDIR PRN IV Magnesium Sulfate (MAGNESIUM SULFATE 2GM/SWFI 50ML) 50 ML ASDIR PRN IV Magnesium Sulfate/Dextrose (MAGNESIUM SULFATE 1GM/D5W 100ML) 100 ML ASDIR PRN IV Ondansetron HCl (ZOFRAN) 4 MG Q6H PRN PRN IV Potassium Chloride (KCL 20MEQ/SWFI 100ML) 100 ML ASDIR PRN IV Fluticasone Propionate (Flonase Nasal Baxter) 2 SPRAY DAILY NASAL (CKD) Results Findings/Data: Laboratory Tests 11/19 11/18 11/18 11/18 0805 1917 1714 1110 Chemistry POC Glucose (70 - 110 MG/DL) 174 H 104 181 H 197 H Radiology data: Recent Impressions: ULTRASOUND - US SOFT TISSUE TORSO 11/18 1241 Report Impression - Status: SIGNED Entered: 11/18/2024 1350 IMPRESSION: Moderate-sized bilateral pleural effusions are seen with evidence of volume loss in both lower lobes. Impression By: [email or web address] - David Ashby M.D. Results: labs reviewed, vital signs stable, nadia personally rev'd, current med profile rev'd Diagnosis, Assessment Plan Hospital course to date: This is a 54-year-old female with a past medical history of hypertension, diabetes on insulin who presented to [facility] with complaints of chest pain. She was ruled in for NSTEMI on her blood work. 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 Patient was transferred to [facility] for further evaluation and workup of multivessel CAD. Patient denies any alcohol or drug use. He does report half pack a day smoking for the past 40 years. 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 Assessment/plan 1. Hypertension 2. Diabetes on insulin 3. NSTEMI 4. Multivessel CAD Patient seen and examined. Patient will begin workup for consideration for coronary bypass graft surgery. Appropriate preoperative studies will be completed. Echocardiogram pending vein mapping pending Carotid Doppler pending Will obtain pulmonary function test due to patient's history of smoking Further recs to follow based on further clinical workup. 11/09/24 1. Coronary artery bypass graft surgery x5 (ASH to LAD, saphenous vein to diagonal, saphenous vein to first marginal, saphenous vein to second marginal, saphenous vein to PDA). 2. Amputation of left atrial appendage. 3. Endoscopic vein harvest bilateral greater saphenous vein. 4. Posterior pericardiotomy. 11/10/24 POD 1 AAOx3 Patient reports pain, Multimodal pain control Respiratory: 4 L nasal cannula Encourage IS, Deep Breathing, CXR reviewed chest tube drainage 25 and 25 so far this morning after walking. Chest tubes causing marked amount of pain. Will DC chest tubes Cardiac: Sinus rhythm, pacing wires on standby GI: Advance diet as tolerated, monitor glycemic control : Ramirez in place, monitor urine output UO: 765 overnight PT/OT, patient walked the unit Disposition: Patient has good family support DVT prophylaxis, SCDs in place Continue DAPT, metoprolol, Lipitor, amiodarone Labs reveiwed- replace electrolytes as needed Patient seen and examined by Dr. Ross. Plan of care discussed with patient and multidisciplinary team. The patient's questions were answered 11/11/24 POD 2 AAOx3 Patient reports pain, Multimodal pain control, pain management following Respiratory: Room air Encourage IS, Deep Breathing, CXR reviewed, chest tubes removed yesterday. Bilateral pleural effusions. Continue diuresis for now. Patient may need right pigtail placement GI: Advance diet as tolerated, monitor glycemic control : F James DC'd yesterday. Voiding well PT/OT, patient walked the unit Disposition: Patient has good family support DVT prophylaxis, SCDs in place Continue DAPT, metoprolol, Lipitor, amiodarone Labs reveiwed- replace electrolytes as needed Patient seen and examined by Dr. Ross. Plan of care discussed with patient and multidisciplinary team. The patient's questions were answered Give Lasix 20 IV today. 11/12/24 POD 3 AAOx3 Patient reports pain, Multimodal pain control, pain management following, consider decreasing pain m meds. Respiratory: Room air Encourage IS, Deep Breathing, CXR reviewed, pleural effusion appears to be improving continue diuresing. GI: Tolerating diet, pending BM : Voiding well PT/OT, patient walked the unit Disposition: Patient has good family support DVT prophylaxis, SCDs in place Continue DAPT, metoprolol, Lipitor, amiodarone Labs reveiwed- replace electrolytes as needed Patient seen and examined by Dr. Ross. Plan of care discussed with patient and multidisciplinary team. The patient's questions were answered 20 of Lasix given. Platelets trending down, Will order HIT panel 11/13/24 POD 4 AAOx3 Labs reviewed, replace electrolytes as needed, hgb dropped to 6.6 from 7.8, plts 61 HIT panel positive, pending RACHELLE Patient reports improved pain, Multimodal pain control, pain management following Respiratory: Room air, Encourage IS, Deep Breathing, CXR reviewed, There are diffuse congestive changes bilaterally. No pneumothorax or pleural effusion is identified. NSR, monitoring BP closly, pacing wires on standby GI: Tolerating diet, pending BM, mom suppository today : Voiding well, urine output 400cc overnight, Lasix today PT/OT, patient walked the unit Disposition: Patient has good family support DVT prophylaxis, SCDs in place DVT study ordered, negative DVT to Left leg, ordered updated bilateral Lower extremity Continue DAPT, metoprolol, Lipitor, amiodarone Labs reviewed- replace electrolytes as needed Patient seen and examined by Dr. Ross. Plan of care discussed with patient and multidisciplinary team. The patient's questions were answered. 11/14/24 POD 5 AAOx3 Pending updated labs, replace electrolytes as needed, yesterday hgb dropped to 6.6 from 7.8, plts 61, pending stool occult HIT panel positive, pending RACHELLE Discussed with hematology plan for anticoagulation, will hold off on argatroban but watch closely for any thrombosis, platelet counts and await RACHELLE testing result. Patient reports improved pain, Multimodal pain control, pain management following Respiratory: Room air, Encourage IS, Deep Breathing, CXR reviewed NSR, monitoring BP closly, pacing wires on standby GI: Tolerating diet, pending BM, mom suppository today : Voiding well, weight still up from baseline, continue diuresis PT/OT, patient ambulating around the unit Disposition: Patient has good family support DVT prophylaxis, SCDs in place DVT study negative for DVT to CORNELL LE Continue DAPT, metoprolol, Lipitor, amiodarone Patient seen and examined by Dr. Ross. Plan of care discussed with patient and multidisciplinary team. The patient's questions were answered. 11/16/24 POD 7 AAOx3 Pending updated labs, replace electrolytes as needed, hgb 8.6, plts 118, pending stool occult Patient complaints of left back pain, pain management following HIT panel positive, pending RACHELLE Discussed with hematology plan for anticoagulation, will hold off on argatroban but watch closely for any thrombosis, platelet counts and await RACHELLE testing result. Patient reports improved pain, Multimodal pain control, pain management following Respiratory: Room air, Encourage IS, Deep Breathing, CXR reviewed, small bilateral effusions, will give Lasix 20mg IV BID NSR, monitoring BP closly, pacing wires on standby GI: Tolerating diet, small bowel movement yesterday, continue bowel regimen : Voiding well, weight still up from baseline, continue diuresis PT/OT, patient ambulating around the unit Disposition: Patient has good family support DVT prophylaxis, SCDs in place DVT study negative for DVT to CORNELL LE Continue DAPT, metoprolol, Lipitor, amiodarone Patient seen and examined by Dr. Ross. Plan of care discussed with patient and multidisciplinary team. The patient's questions were answered. 11/17/24 POD 8 AAOx3 Pending updated labs, replace electrolytes as needed, hgb 7.8, plts 138 Patient complaints of left back pain, pain management following HIT panel positive, pending RACHELLE Discussed with hematology plan for anticoagulation, will hold off on argatroban but watch closely for any thrombosis, platelet counts and await RACHELLE testing result. Patient reports improved pain, Multimodal pain control, pain management following Respiratory: Room air, Encourage IS, Deep Breathing, CXR reviewed, small bilateral effusions, will give Lasix 40mg IV x1 today NSR, monitoring BP closly, pacing wires on standby GI: Tolerating diet, reports BM, continue bowel regimen : Voiding well, weight still up from baseline, continue diuresis PT/OT, patient ambulating around the unit Disposition: Patient has good family support DVT prophylaxis, SCDs in place DVT study negative for DVT to CORNELL LE Continue DAPT, metoprolol, Lipitor, amiodarone Patient seen and examined by Dr. Ross. Plan of care discussed with patient and multidisciplinary team. The patient's questions were answered. 11/18/24 POD 9 AAOx3 Pending updated labs, replace electrolytes as needed, hgb 7.8, plts 133 Please no more labs, patient complaining of being poked all the time and is becoming very frustrated. Today, a repeat type and screen was completed. Will hold off on any further lab draws until RACHELLE is resulted. Patient complaints of left back pain, pain management following HIT panel positive, pending RACHELLE Discussed with hematology plan for anticoagulation, will hold off on argatroban but watch closely for any thrombosis, platelet counts and await RACHELLE testing result. Patient reports improved pain, Multimodal pain control, pain management following Respiratory: Room air, Encourage IS, Deep Breathing, CXR reviewed, bilateral pleural effusions, ordered US to evaluate size for possible pigtail placement NSR, monitoring BP closly, pacing wires on standby GI: Tolerating diet, reports BM, continue bowel regimen : Voiding well, weight still up from baseline, continue diuresis PT/OT, patient ambulating around the unit Disposition: Patient has good family support. DVT prophylaxis, SCDs in place DVT study negative for DVT to CORNELL LE Continue DAPT, metoprolol, Lipitor, amiodarone Patient seen and examined by Dr. Ross. Plan of care discussed with patient and multidisciplinary team. The patient's questions were answered. 11/19/24 POD 10 AAOx3 Pending updated labs, replace electrolytes as needed, hgb 7.8, plts 133 on Please no more labs. Will hold off on any further lab draws until RACHELLE is resulted. Patient complaints of left back pain, pain management following HIT panel positive, pending RACHELLE Discussed with hematology plan for anticoagulation, will hold off on argatroban but watch closely for any thrombosis, platelet counts and await RACHELLE testing result. Patient reports improved pain, Multimodal pain control, pain management following Respiratory: Room air, Encourage IS, Deep Breathing, CXR reviewed, bilateral pleural effusions, US shows moderate bilateral effusions, consulted IR for pigtail placement NSR, monitoring BP closly, pacing wires on standby GI: Tolerating diet, reports BM, continue bowel regimen : Voiding well, weight still up from baseline, continue diuresis PT/OT, patient ambulating around the unit Disposition: Patient has good family support. DVT prophylaxis, SCDs in place DVT study negative for DVT to CORNELL LE Continue DAPT, metoprolol, Lipitor, amiodarone Patient seen and examined by Dr. Ross. Plan of care discussed with patient and multidisciplinary team. The patient's questions were answered. Consultants: cardiology, cardiovascular surgery Code status: full code Plan discussed with: patient, collaborating MD, nurse, interdisc care team at 0916 RPT #:[id number] END OF REPORT [facility] 2024-11-19 08:47:00 [facility] Hospitalist Progress Note REPORT#:[id number] REPORT STATUS: Signed REPORT INITIALIZATION DATE:11/19/24 TIME: 846 PATIENT: YUNIER PRATT UNIT #: [id number] ROOM/BED: [place] [id number] : 72 AGE: 54 SEX: F ATTEND: Flynn Becerra MD ADM AUTHOR: Dayanara Man MD R1 REPT SERVICE DT/TIME: 11/19/24 0847 * ALL edits or amendments must be made on the electronic/computer document * Dayanaar Man 11/19/24 0847: Subjective Chief complaint: has pleural effusions on US- IR consulted Objective General VS/I O: Vital Signs: Date Time Temp Pulse Resp B/P B/P Pulse O2 O2 Flow FiO2 Mean Ox Delivery Rate 11/19 1400 80 20 124/60 87 11/19 1350 81 20 138/54 91 11/19 1338 81 19 143/63 90 11/19 1239 37.1 75 14 110/62 0.0 98 Room air 11/19 1234 75 19 110/62 81 95 11/19 0807 37.2 78 15 125/73 0.0 92 Room air 11/19 0806 76 30 125/73 90 87 11/19 0435 36.8 76 19 130/62 0.0 100 Room air 11/19 0049 36.6 76 23 124/69 0.0 91 Room air 11/18 2305 97 Room air 21 11/18 1914 37.5 87 30 155/77 0.0 96 Room air 11/18 1717 37.3 81 24 138/64 0.0 92 Room air 24 hour I O ending at 0700: 11/19 0700 11/18 1900 Intake Total Output Total Balance Output, Emesis Patient 78 kg Weight Weight Standing scale Measurement Method PATIENT WEIGHT: Weight (lb): 171 Weight (oz): 15.37 Weight (kg): 78.000 Medications: Active Meds + DC'd Last 24 Hrs Amiodarone HCl (CORDARONE) 200 MG BID PO Fentanyl Citrate (SUBLIMAZE) 0 .STK-MED ONE IV (DC) Lorazepam (ATIVAN) 0 .STK-MED ONE IV (DC) Lidocaine HCl (XYLOCAINE) 0 .STK-MED ONE LOCAL (DC) Hydromorphone HCl (DILAUDID) 0.2 MG Q6H PRN PRN IV Furosemide (LASIX 20MG INJ) 20 MG BID 9A 5P IV (DC) Bisacodyl (DULCOLAX) 10 MG DAILY PRN PRN RECTAL Lidocaine (Lidocaine 4% Patch) 1 PATCH DAILY TOPICAL Tizanidine HCl (ZANAFLEX) 4 MG Q8HR PO Hydrocodone Bitart/Acetaminophen (NORCO 7.5/325 TABLET) 2 TAB Q4H PRN PRN PO Insulin Glargine (Semglee) 20 UNIT BID SUBQ Ipratropium Hazard (ATROVENT) 500 MCG RTQ2H PRN PRN INH Cyanocobalamin (Vitamin B-12 500 mcg tab) 500 MCG DAILY PO Ferrous Sulfate (FERROUS SULFATE) 325 MG DAILY PO Quetiapine Fumarate (SeroqueL) 200 MG BEDTIME PO Gabapentin (NEURONTIN) 1,200 MG TID PO Insulin Human Lispro (Admelog) 0 AC HS SUBQ Amitriptyline HCl (ELAVIL) 25 MG BEDTIME PO Naloxone HCl (NARCAN) 0.4 MG Q2M PRN PRN IV Clopidogrel Bisulfate (Plavix) 75 MG DAILY PO Polyethylene Glycol (MIRALAX) 17 GM DAILY PO Pantoprazole (PROTONIX) 40 MG DAILY@0600 PO Aspirin (ASPIRIN) 81 MG DAILY PO Amiodarone HCl (CORDARONE) 200 MG TID PO (DC) Atorvastatin Calcium (LIPITOR) 40 MG 2100 PO Docusate Sodium (COLACE) 100 MG BID PO Metoprolol Tartrate (LOPRESSOR) 12.5 MG Q12HR PO Sennosides (Senna Lax 8.6 MG TABLET) 17.2 MG BEDTIME PO Dextrose/Water (DEXTROSE 10% IN WATER) 125 ML ASDIR PRN IV (CKD) Dextrose/Water (DEXTROSE 10% IN WATER) 250 ML ASDIR PRN IV (CKD) Glucagon (GLUCAGON) 1 MG ASDIR PRN IM Magnesium Sulfate (MAGNESIUM SULFATE 4GM/SWFI 100ML) 100 ML ASDIR PRN IV Magnesium Sulfate (MAGNESIUM SULFATE 2GM/SWFI 50ML) 50 ML ASDIR PRN IV Magnesium Sulfate/Dextrose (MAGNESIUM SULFATE 1GM/D5W 100ML) 100 ML ASDIR PRN IV Ondansetron HCl (ZOFRAN) 4 MG Q6H PRN PRN IV Potassium Chloride (KCL 20MEQ/SWFI 100ML) 100 ML ASDIR PRN IV Fluticasone Propionate (Flonase Nasal Baxter) 2 SPRAY DAILY NASAL (CKD) Physical Exam Head/Eyes: atraumatic, normocephalic ENT: moist mucosal membranes, normal dentition Neck: full range of motion, supple/no meningismus Cardiovascular: normal heart sounds, regular rate rhythm, no murmur Respiratory: aerating well, clear to auscultation, symmetric expansion, no distress Abdomen: non-tender, soft, no distention, no guarding, no rebound Extremities: moves all, no edema 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, oriented X 3, CNII-XII intact, no motor deficits, no sensory deficits Skin: dry, intact, no rash Psychiatry: normal affect, normal mood Results Findings/Data: Laboratory Tests 11/19 11/19 11/18 11/18 1237 0805 1917 1714 Chemistry POC Glucose (70 - 110 MG/DL) 193 H 174 H 104 181 H Radiology data: Recent Impressions: RADIOLOGY - XR CHEST 1 V 11/19 1131 Report Impression - Status: SIGNED Entered: 11/19/2024 1352 IMPRESSION: Uneventful placement of bilateral thoracostomy tubes with some improvement in pleural effusions. CHF with effusions noted. Impression By: Fern - Jordan Galindo M.D. Diagnosis, Assessment Plan Hospital course to date: 11/10- POD #1 CABG. c/o post op pain. d/w CV surgery team and pain management consulted 11/11- POD #2 CABG. pain is much better controlled. possibly transfer out of CCU today. chest tubes out yesterday.lasix x1 today 11/12: POD #3. Hyperglycemia improved after adding Lantus 15 BID. 11/13: Hb 6.6 today. 2 units RBC transfused. HIT panel postive, Heme Onc consulted and RACHELLE panel sent. CXR shows diffsue congestive changes. Venous doppler negative. 11/15-11/17: Fecal occult blood and RACHELLE pending 11/19: US for pleural effusion was done due to SOB, shows that there is increasing effusion, IR has been consulted to place CORNELL pigtails. Consultants: cardiology, cardiovascular surgery Free Text DxA P Notes Free text DxA P notes: 54 yo F w PMHx of HTN, DM presented for evaluation of SOB and chest pain at [facility]. Patient was found to have NSTEMI. 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 Patient was transported to [facility] for CABG evaluation. Assessment and Plan CORNELL pleural effusion: -As seen on US -s/p Ultrasound guided pleural drain placement (11/19) Heparin Induced Thrombocytopenia -As per Hematology and CTS anticoagulation, will hold off on argatroban but watch closely for any thrombosis, platelet counts and await RACHELLE testing result. 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 FEV1 is 60% of predicted. Ratio is normal. History of Diabetes Mellitus Type-2, Uncontrolled - HGB A1c 8.0 - Blood sugar monitoring - Lantus 20 BID - Insulin SS History of Diabetic Neuropathy - Continue Gabapentin 1,200MG PO TID (verified) - Continue home Cymbalta History of Anxiety - Continue Seroquel 200MG PO bedtime Pleural effusions -U/S - may need pig tail catheter. Diet: Regular DVT ppx: Heparin gtt Pepcid FULL CODE Dispo: RACHELLE pending. CORNELL pigtails in place. Flynn Becerra 11/19/24 1712: Attestations Teaching Physician Attestation F/U visit w/o resident: I personally saw the patient and reviewed the resident's note. I agree with the resident's findings and plan. at 1454 at 1714 RPT #:[id number] END OF REPORT [facility] 2024-11-18 12:54:00 [facility] Hospitalist Progress Note REPORT#:[id number] REPORT STATUS: Signed REPORT INITIALIZATION DATE:11/18/24 TIME: 125 PATIENT: YUNIER PRATT UNIT #: [id number] ROOM/BED: [place] [id number] : 72 AGE: 54 SEX: F ATTEND: Flynn Becerra MD ADM AUTHOR: Flynn Becerra MD REPT SERVICE DT/TIME: 11/18/24 1254 * ALL edits or amendments must be made on the electronic/computer document * Subjective Chief complaint: Pending RACHELLE. Had u/s for pleural effussions Objective General VS/I O: Vital Signs: Date Time Temp Pulse Resp B/P B/P Pulse O2 O2 Flow FiO2 Mean Ox Delivery Rate 11/18 1113 99.3 76 24 130/72 0.0 92 Room air 11/18 0810 98 11/18 0734 97.9 81 24 129/68 0.0 96 Room air 11/18 0524 98.1 80 16 120/66 0.0 95 Room air 11/18 0115 97.5 80 12 111/62 0.0 100 Room air 11/17 2159 98 Room air 21 11/17 1902 99.3 91 22 142/66 0.0 94 Room air 11/17 1700 99.5 88 18 138/76 96.5 97 Room air 24 hour I O ending at 0700: 11/18 0700 11/17 1900 Intake Total 340 750 Output Total 300 1800 Balance 40 -1050 Intake, Oral 340 750 Number 1 Bowel Movements Output, Urine 300 1800 Patient 77.8 kg Weight Weight Standing scale Measurement Method PATIENT WEIGHT: Weight (lb): 171 Weight (oz): 8.31 Weight (kg): 77.800 Physical Exam General appearance: alert, awake, oriented Head/Eyes: atraumatic, normocephalic ENT: moist mucosal membranes, normal dentition Neck: full range of motion, supple/no meningismus Cardiovascular: normal heart sounds, regular rate rhythm, no murmur Respiratory: aerating well, clear to auscultation, symmetric expansion, no distress Abdomen: non-tender, soft, no distention, no guarding, no rebound Extremities: moves all, no edema 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, oriented X 3, CNII-XII intact, no motor deficits, no sensory deficits Skin: dry, intact, no rash Psychiatry: normal affect, normal mood Results Findings/Data: Laboratory Tests 11/18 11/18 11/17 11/17 0731 3278 8170 6979 Chemistry Sodium (134 - 147 mEq/L) 141 Potassium (3.4 - 5.0 mEq/L) 4.2 Chloride (100 - 108 mEq/L) 105 Carbon Dioxide (21 - 33 mEq/l) 32 Anion Gap (0 - 20) 9 BUN (7 - 25 mg/dL) 15 Creatinine (0.6 - 1.3 mg/dL) 0.6 Glomerular Filtr Rate (90 - 95) 107.9 H Glucose (77 - 141 mg/dL) 106 POC Glucose (70 - 110 MG/DL) 106 123 H 171 H Calcium (8.0 - 10.5 mg/dL) 8.6 Magnesium (1.6 - 2.6 mg/dL) 1.90 Laboratory Tests 11/18 0248 Hematology WBC (4.5 - 11.0 x10 3/uL) 5.2 RBC (3.54 - 5.02 x10 6/uL) 3.14 L Hgb (11.0 - 15.0 g/dL) 7.8 L Hct (33.0 - 45.0 %) 26.4 L MCV (81.0 - 99.0 fL) 84.1 MCH (27.0 - 33.0 pg) 24.8 L MCHC (33.0 - 37.0 g/dL) 29.5 L RDW (11.5 - 14.5 %) 17.2 H Plt Count (150 - 400 x10 3/uL) 133 L MPV (7.0 - 9.0 fL) 11.2 H Neut % (Auto) (56.0 - 77.0 %) 61.9 Lymph % (Auto) (14.0 - 32.0 %) 20.2 Brule % (Auto) (4.8 - 9.0 %) 11.7 H Eos % (Auto) (0.3 - 3.7 %) 4.6 H Baso % (Auto) (0.0 - 2.0 %) 0.8 Neut # (Auto) (2.0 - 7.6 x10 3/uL) 3.22 Lymph # (Auto) (1.0 - 3.8 x10 3/uL) 1.05 Brule # (Auto) (0.1 - 0.8 x10 3/uL) 0.61 Eos # (Auto) (0.0 - 0.2 x10 3/uL) 0.24 H Baso # (Auto) (0.0 - 0.2 x10 3/uL) 0.04 Abs Immat Gran (auto) (0.00 - 0.03 x10 3/uL) 0.04 H Immature Gran % (0.0 - 2.0 %) 0.8 Nucleated RBC % (0 - 0 %) 0.0 Nucleated RBCs # (Man) (0.0 - 0.1 x10 3/uL) 0.00 Radiology data: Recent Impressions: RADIOLOGY - XR CHEST 1 V 11/18 0626 Report Impression - Status: SIGNED Entered: 11/18/2024 0930 IMPRESSION: Moderate central vasculature congestion/pulmonary edema with bilateral effusions and likely adjacent atelectasis. Right pleural effusion appears to be enlarging. Location: H2 Impression By: Janet Winters M.D. Diagnosis, Assessment Plan Hospital course to date: 11/10- POD #1 CABG. c/o post op pain. d/w CV surgery team and pain management consulted 11/11- POD #2 CABG. pain is much better controlled. possibly transfer out of CCU today. chest tubes out yesterday.lasix x1 today 11/12: POD #3. Hyperglycemia improved after adding Lantus 15 BID. 11/13: Hb 6.6 today. 2 units RBC transfused. HIT panel postive, Heme Onc consulted and RACHELLE panel sent. CXR shows diffsue congestive changes. Venous doppler negative. 11/15-11/17: Fecal occult blood and RACHELLE pending Consultants: cardiology, cardiovascular surgery Free Text DxA P Notes Free text DxA P notes: 54 yo F w PMHx of HTN, DM presented for evaluation of SOB and chest pain at [facility]. Patient was found to have NSTEMI. 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 Patient was transported to [facility] for CABG evaluation. Assessment and Plan Heparin Induced Thrombocytopenia -As per Hematology and CTS anticoagulation, will hold off on argatroban but watch closely for any thrombosis, platelet counts and await RACHELLE testing result. 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 FEV1 is 60% of predicted. Ratio is normal. History of Diabetes Mellitus Type-2, Uncontrolled - HGB A1c 8.0 - Blood sugar monitoring - Lantus 20 BID - Insulin SS History of Diabetic Neuropathy - Continue Gabapentin 1,200MG PO TID (verified) - Continue home Cymbalta History of Anxiety - Continue Seroquel 200MG PO bedtime Pleural effusions -U/S - may need pig tail catheter. Diet: Regular DVT ppx: Heparin gtt Pepcid FULL CODE Dispo: FOBT and RACHELLE trending. Keep trending Hb at 1256 RPT #:[id number] END OF REPORT [facility] 2024-11-18 11:19:00 [facility] Cardiology Progress Note REPORT#:[id number] REPORT STATUS: Signed REPORT INITIALIZATION DATE:11/18/24 TIME: 1119 PATIENT: YUNIER PRATT UNIT #: [id number] ROOM/BED: [place] [id number] : 72 AGE: 54 SEX: F ATTEND: Flynn Becerra MD ADM AUTHOR: Celeste Diana APRN REPT SERVICE DT/TIME: 11/18/24 1119 * ALL edits or amendments must be made on the electronic/computer document * Subjective Chief complaint: Shortness of breath and chest pain Free Text Subj Notes Free Text Subj Notes: NAD Noted. Objective General VS/I O: 24 hour I O ending at 0700: 11/18 0700 11/17 1900 Intake Total 340 750 Output Total 300 1800 Balance 40 -1050 Intake, Oral 340 750 Number 1 Bowel Movements Output, Urine 300 1800 Patient 77.8 kg Weight Weight Standing scale Measurement Method Vital Signs: Date Time Temp Pulse Resp B/P B/P Pulse O2 O2 Flow FiO2 Mean Ox Delivery Rate 11/18 0810 98 11/18 0734 97.9 81 24 129/68 0.0 96 Room air 11/18 0524 98.1 80 16 120/66 0.0 95 Room air 11/18 0115 97.5 80 12 111/62 0.0 100 Room air 11/17 2159 98 Room air 21 11/17 1902 99.3 91 22 142/66 0.0 94 Room air 11/17 1700 99.5 88 18 138/76 96.5 97 Room air 11/17 1212 98.2 75 18 133/89 0.0 97 Room air PATIENT WEIGHT: Weight (lb): 171 Weight (oz): 8.31 Weight (kg): 77.800 Medications: Active Meds + DC'd Last 24 Hrs Hydromorphone HCl (DILAUDID) 0.2 MG Q6H PRN PRN IV Furosemide (LASIX 20MG INJ) 20 MG BID 9A 5P IV Bisacodyl (DULCOLAX) 10 MG DAILY PRN PRN RECTAL Lidocaine (Lidocaine 4% Patch) 1 PATCH DAILY TOPICAL Tizanidine HCl (ZANAFLEX) 4 MG Q8HR PO Hydrocodone Bitart/Acetaminophen (NORCO 7.5/325 TABLET) 2 TAB Q4H PRN PRN PO Hydromorphone HCl (DILAUDID) 0.5 MG Q6H PRN PRN IV (DC) Insulin Glargine (Semglee) 20 UNIT BID SUBQ Ipratropium Hazard (ATROVENT) 500 MCG RTQ2H PRN PRN INH Cyanocobalamin (Vitamin B-12 500 mcg tab) 500 MCG DAILY PO Ferrous Sulfate (FERROUS SULFATE) 325 MG DAILY PO Quetiapine Fumarate (SeroqueL) 200 MG BEDTIME PO Gabapentin (NEURONTIN) 1,200 MG TID PO Insulin Human Lispro (Admelog) 0 AC HS SUBQ Amitriptyline HCl (ELAVIL) 25 MG BEDTIME PO Naloxone HCl (NARCAN) 0.4 MG Q2M PRN PRN IV Clopidogrel Bisulfate (Plavix) 75 MG DAILY PO Polyethylene Glycol (MIRALAX) 17 GM DAILY PO Pantoprazole (PROTONIX) 40 MG DAILY@0600 PO Aspirin (ASPIRIN) 81 MG DAILY PO Amiodarone HCl (CORDARONE) 200 MG TID PO Atorvastatin Calcium (LIPITOR) 40 MG 2100 PO Docusate Sodium (COLACE) 100 MG BID PO Metoprolol Tartrate (LOPRESSOR) 12.5 MG Q12HR PO Sennosides (Senna Lax 8.6 MG TABLET) 17.2 MG BEDTIME PO Dextrose/Water (DEXTROSE 10% IN WATER) 125 ML ASDIR PRN IV (CKD) Dextrose/Water (DEXTROSE 10% IN WATER) 250 ML ASDIR PRN IV (CKD) Glucagon (GLUCAGON) 1 MG ASDIR PRN IM Magnesium Sulfate (MAGNESIUM SULFATE 4GM/SWFI 100ML) 100 ML ASDIR PRN IV Magnesium Sulfate (MAGNESIUM SULFATE 2GM/SWFI 50ML) 50 ML ASDIR PRN IV Magnesium Sulfate/Dextrose (MAGNESIUM SULFATE 1GM/D5W 100ML) 100 ML ASDIR PRN IV Ondansetron HCl (ZOFRAN) 4 MG Q6H PRN PRN IV Potassium Chloride (KCL 20MEQ/SWFI 100ML) 100 ML ASDIR PRN IV Fluticasone Propionate (Flonase Nasal Baxter) 2 SPRAY DAILY NASAL (CKD) Physical Exam Head/Eyes: atraumatic, normocephalic Neck: non-tender, no JVD Cardiovascular: CV assessment: regular rate and rhythm Respiratory: decreased breath sounds, shortness of breath, mild SOB Abdomen: soft, non-tender, normal bowel sounds, no distention Genitourinary: no flank pain, no urinary catheter Lower extremity: LE assessment: no edema Musculoskeletal: normal inspection 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, oriented X 3, normal speech Skin: dry, intact, normal color Psychiatry: normal affect, normal judgment/insight, normal mood Results Findings/Data: Laboratory Tests 11/18 11/18 11/17 11/17 11/17 0731 0248 2031 1659 1210 Chemistry Sodium (134 - 147 mEq/L) 141 Potassium (3.4 - 5.0 mEq/L) 4.2 Chloride (100 - 108 mEq/L) 105 Carbon Dioxide (21 - 33 mEq/l) 32 Anion Gap (0 - 20) 9 BUN (7 - 25 mg/dL) 15 Creatinine (0.6 - 1.3 mg/dL) 0.6 Glomerular Filtr Rate (90 - 95) 107.9 H Glucose (77 - 141 mg/dL) 106 POC Glucose (70 - 110 MG/DL) 106 123 H 171 H 148 H Calcium (8.0 - 10.5 mg/dL) 8.6 Magnesium (1.6 - 2.6 mg/dL) 1.90 Laboratory Tests 11/18 0248 Hematology WBC (4.5 - 11.0 x10 3/uL) 5.2 RBC (3.54 - 5.02 x10 6/uL) 3.14 L Hgb (11.0 - 15.0 g/dL) 7.8 L Hct (33.0 - 45.0 %) 26.4 L MCV (81.0 - 99.0 fL) 84.1 MCH (27.0 - 33.0 pg) 24.8 L MCHC (33.0 - 37.0 g/dL) 29.5 L RDW (11.5 - 14.5 %) 17.2 H Plt Count (150 - 400 x10 3/uL) 133 L MPV (7.0 - 9.0 fL) 11.2 H Neut % (Auto) (56.0 - 77.0 %) 61.9 Lymph % (Auto) (14.0 - 32.0 %) 20.2 Brule % (Auto) (4.8 - 9.0 %) 11.7 H Eos % (Auto) (0.3 - 3.7 %) 4.6 H Baso % (Auto) (0.0 - 2.0 %) 0.8 Neut # (Auto) (2.0 - 7.6 x10 3/uL) 3.22 Lymph # (Auto) (1.0 - 3.8 x10 3/uL) 1.05 Brule # (Auto) (0.1 - 0.8 x10 3/uL) 0.61 Eos # (Auto) (0.0 - 0.2 x10 3/uL) 0.24 H Baso # (Auto) (0.0 - 0.2 x10 3/uL) 0.04 Abs Immat Gran (auto) (0.00 - 0.03 x10 3/uL) 0.04 H Immature Gran % (0.0 - 2.0 %) 0.8 Nucleated RBC % (0 - 0 %) 0.0 Nucleated RBCs # (Man) (0.0 - 0.1 x10 3/uL) 0.00 Laboratory Tests 11/18 0248 Chemistry Magnesium (1.6 - 2.6 mg/dL) 1.90 Radiology data: Recent Impressions: RADIOLOGY - XR CHEST 1 V 11/18 0626 Report Impression - Status: SIGNED Entered: 11/18/2024 6084 IMPRESSION: Moderate central vasculature congestion/pulmonary edema with bilateral effusions and likely adjacent atelectasis. Right pleural effusion appears to be enlarging. Location: H2 Impression By: Janet Winters M.D. Diagnosis, Assessment Plan Consultants: cardiology, cardiovascular surgery Free Text DxA P Notes Free Text DxA P Notes: 54 YO patient with MH of HTN, DM, neuropathy, tobacco abuse who presented at [facility] with shortness of breath and chest pain. She was ruled for NSTEMI, had LHC which revealed multivessed CAD. She is transferred to [facility] for CABG evaluation. 1. NSTEMI/Multivessel CAD * Echo LVEF 50-54%, G1DD, mild MR * Plavix ASA, BB, statin * S/p CABG (ASH-LAD, SVG-OM1, SVG-OM2, SVG-Diag, SVG-PDA) and ALAA * given 1 dose of IV Lasix 40 mg 2. Hypertension * BP stable, continue BB. 3. Diabetes mellitus * A1c 8 * manage per CTS 4. Acute Diastolic CHF, present to admission * LVEF 50-54% * cont GDMT 5. Positive heparin-induced thrombocytopenia * Platelets 61K->114K->103K * Hematology following 6. Postoperative anemia * Hemoglobin 6.6-> 9.9 * s/p 2 units PRBC 11/[address] Lindquist 11/18/24 VS stable cont to monitor closely MDM per Dr. Richardson. at 1456 at 1700 RPT #:[id number] END OF REPORT [facility] 2024-11-18 09:53:00 [facility] ([facility]) Pain Management Progress Note REPORT#:[id number] REPORT STATUS: Signed REPORT INITIALIZATION DATE:11/18/24 TIME: 952 PATIENT: YUNIER PRATT UNIT #: [id number] ROOM/BED: [place] [id number] : 72 AGE: 54 SEX: F ATTEND: Flynn Becerra MD ADM AUTHOR: Alejandro Cabrera NP REPT SERVICE DT/TIME: 11/18/24 0953 * ALL edits or amendments must be made on the electronic/computer document * Subjective Chief complaint: Patient seen and examined. Chart/MAR reviewed Patient states pain is tolerable today. Medicaitons provide sufficient relief when taken. Able to rest and remain with reasonable comfort. Pending Rachelle results. Will continue to wean IV opioids. Patient being seen for chest pain, acute postoperative pain, diabetic polyneuropathy, muscle spasms, constipation/OIC Patient is still requiring medications to help with managing current problems Patient is requiring IV narcotics to help manage breakthrough pain No fever/chills, chest pain, orthopnea, nausea/vomiting, pruritus, or hallucinations. 14-point ROS undertaken and is unremarkable except as noted. Objective General VS/I O: Vital Signs Date Temp Pulse Resp B/P B/P Mean Pulse Ox FiO2 11/17-11/18 97.5-99.5 75-91 12-24 111-142/62-89 0.0-96.5 94-100 21 Last Documented: Result Date Time Pulse Ox 96 11/18 0734 B/P 129/68 11/18 0734 B/P Mean 0.0 11/18 0734 O2 Delivery Room air 11/18 07 Temp 97.9 11/18 0734 Pulse 81 11/18 0734 Resp 24 11/18 0734 FiO2 21 11/17 2159 O2 Flow Rate 0 11/11 1601 24 hour I O ending at 0700: 11/18 0700 11/17 1900 Intake Total 340 750 Output Total 300 1800 Balance 40 -1050 Intake, Oral 340 750 Number 1 Bowel Movements Output, Urine 300 1800 Patient 77.8 kg Weight Weight Standing scale Measurement Method PATIENT WEIGHT: Weight (lb): 171 Weight (oz): 8.31 Weight (kg): 77.800 Medications: Active Meds + DC'd Last 24 Hrs Furosemide (LASIX 20MG INJ) 20 MG BID 9A 5P IV Bisacodyl (DULCOLAX) 10 MG DAILY PRN PRN RECTAL Furosemide (LASIX 40 mg/4 mL INJECTION) 40 MG ONCE ONE IV (DC) Lidocaine (Lidocaine 4% Patch) 1 PATCH DAILY TOPICAL Tizanidine HCl (ZANAFLEX) 4 MG Q8HR PO Hydrocodone Bitart/Acetaminophen (NORCO 7.5/325 TABLET) 2 TAB Q4H PRN PRN PO Hydromorphone HCl (DILAUDID) 0.5 MG Q6H PRN PRN IV Insulin Glargine (Semglee) 20 UNIT BID SUBQ Ipratropium Hazard (ATROVENT) 500 MCG RTQ2H PRN PRN INH Cyanocobalamin (Vitamin B-12 500 mcg tab) 500 MCG DAILY PO Ferrous Sulfate (FERROUS SULFATE) 325 MG DAILY PO Quetiapine Fumarate (SeroqueL) 200 MG BEDTIME PO Gabapentin (NEURONTIN) 1,200 MG TID PO Insulin Human Lispro (Admelog) 0 AC HS SUBQ Amitriptyline HCl (ELAVIL) 25 MG BEDTIME PO Naloxone HCl (NARCAN) 0.4 MG Q2M PRN PRN IV Clopidogrel Bisulfate (Plavix) 75 MG DAILY PO Polyethylene Glycol (MIRALAX) 17 GM DAILY PO Pantoprazole (PROTONIX) 40 MG DAILY@0600 PO Aspirin (ASPIRIN) 81 MG DAILY PO Amiodarone HCl (CORDARONE) 200 MG TID PO Atorvastatin Calcium (LIPITOR) 40 MG 2100 PO Docusate Sodium (COLACE) 100 MG BID PO Metoprolol Tartrate (LOPRESSOR) 12.5 MG Q12HR PO Sennosides (Senna Lax 8.6 MG TABLET) 17.2 MG BEDTIME PO Dextrose/Water (DEXTROSE 10% IN WATER) 125 ML ASDIR PRN IV (CKD) Dextrose/Water (DEXTROSE 10% IN WATER) 250 ML ASDIR PRN IV (CKD) Glucagon (GLUCAGON) 1 MG ASDIR PRN IM Magnesium Sulfate (MAGNESIUM SULFATE 4GM/SWFI 100ML) 100 ML ASDIR PRN IV Magnesium Sulfate (MAGNESIUM SULFATE 2GM/SWFI 50ML) 50 ML ASDIR PRN IV Magnesium Sulfate/Dextrose (MAGNESIUM SULFATE 1GM/D5W 100ML) 100 ML ASDIR PRN IV Ondansetron HCl (ZOFRAN) 4 MG Q6H PRN PRN IV Potassium Chloride (KCL 20MEQ/SWFI 100ML) 100 ML ASDIR PRN IV Fluticasone Propionate (Flonase Nasal Baxter) 2 SPRAY DAILY NASAL (CKD) Physical Exam General appearance: alert, awake, oriented, no acute distress Head/eyes: atraumatic, EOMI, normocephalic, PERRLA ENT: normal ear right, normal nose, moist mucosal membranes Neck: no JVD, supple/no meningismus Cardiovascular: regular rate rhythm, normal heart sounds, dressing over sternum Respiratory: clear to auscultation, aerating well, symmetric expansion Abdomen: soft, non-tender, no distention Extremities: moves all, no edema, no clubbing, no cyanosis 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, oriented X 3, normal speech, CNII-XII grossly intact Skin: dry, warm Psychiatry: normal affect, normal mood Results Findings/data: Laboratory Tests: 11/18 11/18 11/17 11/17 0731 7835 8433 4070 Chemistry Sodium (134 - 147 mEq/L) 141 Potassium (3.4 - 5.0 mEq/L) 4.2 Chloride (100 - 108 mEq/L) 105 Carbon Dioxide (21 - 33 mEq/l) 32 Anion Gap (0 - 20) 9 BUN (7 - 25 mg/dL) 15 Creatinine (0.6 - 1.3 mg/dL) 0.6 Glomerular Filtr Rate (90 - 95) 107.9 H Glucose (77 - 141 mg/dL) 106 POC Glucose (70 - 110 MG/DL) 106 123 H 171 H Calcium (8.0 - 10.5 mg/dL) 8.6 Magnesium (1.6 - 2.6 mg/dL) 1.90 Hematology WBC (4.5 - 11.0 x10 3/uL) 5.2 RBC (3.54 - 5.02 x10 6/uL) 3.14 L Hgb (11.0 - 15.0 g/dL) 7.8 L Hct (33.0 - 45.0 %) 26.4 L MCV (81.0 - 99.0 fL) 84.1 MCH (27.0 - 33.0 pg) 24.8 L MCHC (33.0 - 37.0 g/dL) 29.5 L RDW (11.5 - 14.5 %) 17.2 H Plt Count (150 - 400 x10 3/uL) 133 L MPV (7.0 - 9.0 fL) 11.2 H Neut % (Auto) (56.0 - 77.0 %) 61.9 Lymph % (Auto) (14.0 - 32.0 %) 20.2 Brule % (Auto) (4.8 - 9.0 %) 11.7 H Eos % (Auto) (0.3 - 3.7 %) 4.6 H Baso % (Auto) (0.0 - 2.0 %) 0.8 Neut # (Auto) (2.0 - 7.6 x10 3/uL) 3.22 Lymph # (Auto) (1.0 - 3.8 x10 3/uL) 1.05 Brule # (Auto) (0.1 - 0.8 x10 3/uL) 0.61 Eos # (Auto) (0.0 - 0.2 x10 3/uL) 0.24 H Baso # (Auto) (0.0 - 0.2 x10 3/uL) 0.04 Abs Immat Gran (auto) (0.00 - 0.03 x10 3/uL) 0.04 H Immature Gran % (0.0 - 2.0 %) 0.8 Nucleated RBC % (0 - 0 %) 0.0 Nucleated RBCs # (Man) (0.0 - 0.1 x10 3/uL) 0.00 11/17 1210 Chemistry POC Glucose (70 - 110 MG/DL) 148 H Recent Impressions: RADIOLOGY - XR CHEST 1 V 11/18 0626 Report Impression - Status: SIGNED Entered: 11/18/2024 09 IMPRESSION: Moderate central vasculature congestion/pulmonary edema with bilateral effusions and likely adjacent atelectasis. Right pleural effusion appears to be enlarging. Location: H2 Impression By: Janet Winters M.D. Diagnosis, Assessment Plan Free text A P: Patient is a 54 year old female who presents with the following: Chest pain, acute postoperative pain -S/P CABG on 11/09/24 -DC oxycodone 10mg q6h PRN -DC Dilaudid 4mg PO q4h PRN, pain scale 4-10 (11/15) -DC Acetaminophen 1000mg q6h (11/15) -Lidocaine patch to chest wall daily 12h on 12h off (11/16) -[place] 7.5/325 mg 2 tabs PO q4h PRN pain scale 4-10 (11/15) -decr Dilaudid 0.2 mg IV q6h PRN, pain scale 7-10, second line (decr dose 11/18) -stable Diabetic polyneuropathy -Amitriptyline 25mg at bedtime -Gabapentin 1200mg TID (11/11) -stable Muscle spams -DC Robaxin 500mg PO TID -DC Methocarbamol 1000mg IV q8h x 3 doses (11/14) -Tizanidine 4 mg PO q8h (11/15) -stable Insomnia -Takes seroquel 200mg QHS at home Constipation/OIC -Docusate 100mg BID -Miralax 17gm daily -Senna 17.2 mg at bedtime -Relistor 12 mg subq daily x 3 days (11/13) -Adjustment made Disposition: Rx: [facility]acy: [facility] Past medical history: DM, HTN, CAD Past surgical history: CABG, ALAA, PP, EVH Family history: Noncontributory Social history: denies drugs, alcohol, smoking Allergies: NKDA All pertinent diagnostics/labs from the last 24 hours and during the course of the admission were reviewed. Plan discussed with the patient and the nurse. All questions were answered. Patient will be monitored for deleterious side effects associated with opioids and sedative medications. Medications will be adjusted further clinical course. Risks versus benefits of opioid medications were reviewed to include, but not limited to respiratory depression, accidental overdose, altered mental status, sudden , constipation which could result in bowel obstruction, seizures, withdrawal, dependency/addiction, risk for falls. Goals: Daily pain control. Case reviewed and discussed with Dr. Keith who agrees with plan of care. [place] [employer] records reviewed: Total Prescriptions 6 Total Private Pay 0 Total Prescribers 4 Total Pharmacies 2 2024 2024 1 HYDROCODONE-ACETAMIN 5-325 MG 20.00 3 Pa o [id number] [facility] (1910) 0 33.33 MME Comm Ins [place] 2024 2024 1 TRAMADOL-ACETAMINOPHN 37.5-325 20.00 3 Pa Tho [id number] [facility] (5) 0 50.00 MME Comm Ins [place] 06/08/2023 06/08/2023 1 ACETAMINOPHEN-COD #3 TABLET 10.00 10 Ma Gopi [id number] [facility] ( 5115) 0 4.50 MME Comm Ins [place] [employer] (1910) [address] [place] [address] [id number] ([phone]) [address] [place] [address] at 5656 RPT #:[id number] END OF REPORT [facility] 2024-11-18 08:53:00 [facility] ([facility]) Cardiothoracic Surgery Prog REPORT#:[id number] REPORT STATUS: Signed REPORT INITIALIZATION DATE:11/18/24 TIME: 852 PATIENT: YUNIER PRATT UNIT #: [id number] ROOM/BED: 3360-1 : 72 AGE: 54 SEX: F ATTEND: Flynn Becerra MD ADM AUTHOR: Talita Monzon REPT SERVICE DT/TIME: 11/18/2453 * ALL edits or amendments must be made on the electronic/computer document * General Post-op: day 9 Status post: 11/09/24 1. Coronary artery bypass graft surgery x5 (ASH to LAD, saphenous vein to diagonal, saphenous vein to first marginal, saphenous vein to second marginal, saphenous vein to PDA). 2. Amputation of left atrial appendage. 3. Endoscopic vein harvest bilateral greater saphenous vein. 4. Posterior pericardiotomy. Subjective Chief complaint: Post op Review of Systems Constitutional: Reports: fatigue, generalized weakness. Denies: chills, fever. Skin: Denies: abrasion. Eyes: Denies: redness. ENT: Denies: ear drainage. Respiratory: Denies: HARTMAN (dyspnea on exertion), hemoptysis, non productive cough, SOB. Cardiovascular: Denies: chest pain, HARTMAN (dyspnea on exertion), edema. GI: Denies: abdominal pain. : Denies: dysuria. Musculoskeletal: Denies: arthritis. Heme: Denies: adenopathy, bleeding. All systems rev neg: except as marked Objective General VS/I O Last Documented: Result Date Time Pulse Ox 96 11/18 733 B/P 129/68 11/18 733 B/P Mean 0.0 11/18 733 O2 Delivery Room air 11/18 733 Temp 97.9 11/18 733 Pulse 81 11/18 733 Resp 24 11/18 733 FiO2 21 11/17 2159 O2 Flow Rate 0 11/11 1601 24 hour I O ending at 0700: 11/18 0700 11/17 1900 Intake Total 340 750 Output Total 300 1800 Balance 40 -1050 Intake, Oral 340 750 Number 1 Bowel Movements Output, Urine 300 1800 Patient 77.8 kg Weight Weight Standing scale Measurement Method PATIENT WEIGHT: Weight (lb): 171 Weight (oz): 8.31 Weight (kg): 77.800 Dietitian Nutrition assessment The data set between the solid lines has been imported from the dietitian's assessment. BMI Calculated: 27.8 Nutrition related diagnosis: Nutrition diagnosis details: Nutrition problem: Increased nutrient needs Nutrition etiology: Decreased/poor appetite, Decreased intake, Chronic disease Nutrition signs and symptoms: Mild muscle loss, 20% or more weight loss, S/P SURGERY Nutrition prescription: RECOMMEND: 1. RECOMMEND A CCD5 CARDIAC DIET. 2. RECOMMEND GLUCERNA TID WITH MEALS. Dietitian name: Evelin Perez, DIET Assessment completed: 11/16/24 Physical Exam General appearance: alert, awake, oriented Wound/incision: Location: sternum Site condition: incision intact, no changes in wound, no drainage HEENT: mucosal membranes moist, pupils reactive to light Neck: full range of motion, non-tender Cardiovascular: regular rate rhythm Respiratory: symmetric expansion, no distress Abdomen: soft, non-tender Extremities: dry, moves all 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, oriented X 3 Skin: dry, intact Current Medications Medications: Active Meds + DC'd Last 24 Hrs Bisacodyl (DULCOLAX) 10 MG DAILY PRN PRN RECTAL Furosemide (LASIX 40 mg/4 mL INJECTION) 40 MG ONCE ONE IV (DC) Lidocaine (Lidocaine 4% Patch) 1 PATCH DAILY TOPICAL Tizanidine HCl (ZANAFLEX) 4 MG Q8HR PO Hydrocodone Bitart/Acetaminophen (NORCO 7.5/325 TABLET) 2 TAB Q4H PRN PRN PO Hydromorphone HCl (DILAUDID) 0.5 MG Q6H PRN PRN IV Insulin Glargine (Semglee) 20 UNIT BID SUBQ Ipratropium Hazard (ATROVENT) 500 MCG RTQ2H PRN PRN INH Cyanocobalamin (Vitamin B-12 500 mcg tab) 500 MCG DAILY PO Ferrous Sulfate (FERROUS SULFATE) 325 MG DAILY PO Quetiapine Fumarate (SeroqueL) 200 MG BEDTIME PO Gabapentin (NEURONTIN) 1,200 MG TID PO Insulin Human Lispro (Admelog) 0 AC HS SUBQ Nicotine (NICODERM) 7 MG DAILY TRANSDERM (DC) Amitriptyline HCl (ELAVIL) 25 MG BEDTIME PO Naloxone HCl (NARCAN) 0.4 MG Q2M PRN PRN IV Clopidogrel Bisulfate (Plavix) 75 MG DAILY PO Polyethylene Glycol (MIRALAX) 17 GM DAILY PO Pantoprazole (PROTONIX) 40 MG DAILY@0600 PO Aspirin (ASPIRIN) 81 MG DAILY PO Amiodarone HCl (CORDARONE) 200 MG TID PO Atorvastatin Calcium (LIPITOR) 40 MG 2100 PO Docusate Sodium (COLACE) 100 MG BID PO Metoprolol Tartrate (LOPRESSOR) 12.5 MG Q12HR PO Sennosides (Senna Lax 8.6 MG TABLET) 17.2 MG BEDTIME PO Dextrose/Water (DEXTROSE 10% IN WATER) 125 ML ASDIR PRN IV (CKD) Dextrose/Water (DEXTROSE 10% IN WATER) 250 ML ASDIR PRN IV (CKD) Glucagon (GLUCAGON) 1 MG ASDIR PRN IM Magnesium Sulfate (MAGNESIUM SULFATE 4GM/SWFI 100ML) 100 ML ASDIR PRN IV Magnesium Sulfate (MAGNESIUM SULFATE 2GM/SWFI 50ML) 50 ML ASDIR PRN IV Magnesium Sulfate/Dextrose (MAGNESIUM SULFATE 1GM/D5W 100ML) 100 ML ASDIR PRN IV Ondansetron HCl (ZOFRAN) 4 MG Q6H PRN PRN IV Potassium Chloride (KCL 20MEQ/SWFI 100ML) 100 ML ASDIR PRN IV Fluticasone Propionate (Flonase Nasal Baxter) 2 SPRAY DAILY NASAL (CKD) Results Findings/Data: Laboratory Tests 11/18 11/17 11/17 11/17 0248 2031 1659 1210 Chemistry Sodium (134 - 147 mEq/L) 141 Potassium (3.4 - 5.0 mEq/L) 4.2 Chloride (100 - 108 mEq/L) 105 Carbon Dioxide (21 - 33 mEq/l) 32 Anion Gap (0 - 20) 9 BUN (7 - 25 mg/dL) 15 Creatinine (0.6 - 1.3 mg/dL) 0.6 Glomerular Filtr Rate (90 - 95) 107.9 H Glucose (77 - 141 mg/dL) 106 POC Glucose (70 - 110 MG/DL) 123 H 171 H 148 H Calcium (8.0 - 10.5 mg/dL) 8.6 Magnesium (1.6 - 2.6 mg/dL) 1.90 Laboratory Tests 11/18 0248 Hematology WBC (4.5 - 11.0 x10 3/uL) 5.2 RBC (3.54 - 5.02 x10 6/uL) 3.14 L Hgb (11.0 - 15.0 g/dL) 7.8 L Hct (33.0 - 45.0 %) 26.4 L MCV (81.0 - 99.0 fL) 84.1 MCH (27.0 - 33.0 pg) 24.8 L MCHC (33.0 - 37.0 g/dL) 29.5 L RDW (11.5 - 14.5 %) 17.2 H Plt Count (150 - 400 x10 3/uL) 133 L MPV (7.0 - 9.0 fL) 11.2 H Neut % (Auto) (56.0 - 77.0 %) 61.9 Lymph % (Auto) (14.0 - 32.0 %) 20.2 Brule % (Auto) (4.8 - 9.0 %) 11.7 H Eos % (Auto) (0.3 - 3.7 %) 4.6 H Baso % (Auto) (0.0 - 2.0 %) 0.8 Neut # (Auto) (2.0 - 7.6 x10 3/uL) 3.22 Lymph # (Auto) (1.0 - 3.8 x10 3/uL) 1.05 Brule # (Auto) (0.1 - 0.8 x10 3/uL) 0.61 Eos # (Auto) (0.0 - 0.2 x10 3/uL) 0.24 H Baso # (Auto) (0.0 - 0.2 x10 3/uL) 0.04 Abs Immat Gran (auto) (0.00 - 0.03 x10 3/uL) 0.04 H Immature Gran % (0.0 - 2.0 %) 0.8 Nucleated RBC % (0 - 0 %) 0.0 Nucleated RBCs # (Man) (0.0 - 0.1 x10 3/uL) 0.00 Results: labs reviewed, vital signs stable, nadia personally rev'd, current med profile rev'd Diagnosis, Assessment Plan Hospital course to date: This is a 54-year-old female with a past medical history of hypertension, diabetes on insulin who presented to [facility] with complaints of chest pain. She was ruled in for NSTEMI on her blood work. 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 Patient was transferred to [facility] for further evaluation and workup of multivessel CAD. Patient denies any alcohol or drug use. He does report half pack a day smoking for the past 40 years. 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 Assessment/plan 1. Hypertension 2. Diabetes on insulin 3. NSTEMI 4. Multivessel CAD Patient seen and examined. Patient will begin workup for consideration for coronary bypass graft surgery. Appropriate preoperative studies will be completed. Echocardiogram pending vein mapping pending Carotid Doppler pending Will obtain pulmonary function test due to patient's history of smoking Further recs to follow based on further clinical workup. 11/09/24 1. Coronary artery bypass graft surgery x5 (ASH to LAD, saphenous vein to diagonal, saphenous vein to first marginal, saphenous vein to second marginal, saphenous vein to PDA). 2. Amputation of left atrial appendage. 3. Endoscopic vein harvest bilateral greater saphenous vein. 4. Posterior pericardiotomy. 11/10/24 POD 1 AAOx3 Patient reports pain, Multimodal pain control Respiratory: 4 L nasal cannula Encourage IS, Deep Breathing, CXR reviewed chest tube drainage 25 and 25 so far this morning after walking. Chest tubes causing marked amount of pain. Will DC chest tubes Cardiac: Sinus rhythm, pacing wires on standby GI: Advance diet as tolerated, monitor glycemic control : Ramirez in place, monitor urine output UO: 765 overnight PT/OT, patient walked the unit Disposition: Patient has good family support DVT prophylaxis, SCDs in place Continue DAPT, metoprolol, Lipitor, amiodarone Labs reveiwed- replace electrolytes as needed Patient seen and examined by Dr. Ross. Plan of care discussed with patient and multidisciplinary team. The patient's questions were answered 11/11/24 POD 2 AAOx3 Patient reports pain, Multimodal pain control, pain management following Respiratory: Room air Encourage IS, Deep Breathing, CXR reviewed, chest tubes removed yesterday. Bilateral pleural effusions. Continue diuresis for now. Patient may need right pigtail placement GI: Advance diet as tolerated, monitor glycemic control : F Ramirez DC'd yesterday. Voiding well PT/OT, patient walked the unit Disposition: Patient has good family support DVT prophylaxis, SCDs in place Continue DAPT, metoprolol, Lipitor, amiodarone Labs reveiwed- replace electrolytes as needed Patient seen and examined by Dr. Ross. Plan of care discussed with patient and multidisciplinary team. The patient's questions were answered Give Lasix 20 IV today. 11/12/24 POD 3 AAOx3 Patient reports pain, Multimodal pain control, pain management following, consider decreasing pain m meds. Respiratory: Room air Encourage IS, Deep Breathing, CXR reviewed, pleural effusion appears to be improving continue diuresing. GI: Tolerating diet, pending BM : Voiding well PT/OT, patient walked the unit Disposition: Patient has good family support DVT prophylaxis, SCDs in place Continue DAPT, metoprolol, Lipitor, amiodarone Labs reveiwed- replace electrolytes as needed Patient seen and examined by Dr. Ross. Plan of care discussed with patient and multidisciplinary team. The patient's questions were answered 20 of Lasix given. Platelets trending down, Will order HIT panel 11/13/24 POD 4 AAOx3 Labs reviewed, replace electrolytes as needed, hgb dropped to 6.6 from 7.8, plts 61 HIT panel positive, pending RACHELLE Patient reports improved pain, Multimodal pain control, pain management following Respiratory: Room air, Encourage IS, Deep Breathing, CXR reviewed, There are diffuse congestive changes bilaterally. No pneumothorax or pleural effusion is identified. NSR, monitoring BP closly, pacing wires on standby GI: Tolerating diet, pending BM, mom suppository today : Voiding well, urine output 400cc overnight, Lasix today PT/OT, patient walked the unit Disposition: Patient has good family support DVT prophylaxis, SCDs in place DVT study ordered, negative DVT to Left leg, ordered updated bilateral Lower extremity Continue DAPT, metoprolol, Lipitor, amiodarone Labs reviewed- replace electrolytes as needed Patient seen and examined by Dr. Ross. Plan of care discussed with patient and multidisciplinary team. The patient's questions were answered. 11/14/24 POD 5 AAOx3 Pending updated labs, replace electrolytes as needed, yesterday hgb dropped to 6.6 from 7.8, plts 61, pending stool occult HIT panel positive, pending RACHELLE Discussed with hematology plan for anticoagulation, will hold off on argatroban but watch closely for any thrombosis, platelet counts and await RACHELLE testing result. Patient reports improved pain, Multimodal pain control, pain management following Respiratory: Room air, Encourage IS, Deep Breathing, CXR reviewed NSR, monitoring BP closly, pacing wires on standby GI: Tolerating diet, pending BM, mom suppository today : Voiding well, weight still up from baseline, continue diuresis PT/OT, patient ambulating around the unit Disposition: Patient has good family support DVT prophylaxis, SCDs in place DVT study negative for DVT to CORNELL LE Continue DAPT, metoprolol, Lipitor, amiodarone Patient seen and examined by Dr. Ross. Plan of care discussed with patient and multidisciplinary team. The patient's questions were answered. 11/16/24 POD 7 AAOx3 Pending updated labs, replace electrolytes as needed, hgb 8.6, plts 118, pending stool occult Patient complaints of left back pain, pain management following HIT panel positive, pending RACHELLE Discussed with hematology plan for anticoagulation, will hold off on argatroban but watch closely for any thrombosis, platelet counts and await RACHELLE testing result. Patient reports improved pain, Multimodal pain control, pain management following Respiratory: Room air, Encourage IS, Deep Breathing, CXR reviewed, small bilateral effusions, will give Lasix 20mg IV BID NSR, monitoring BP closly, pacing wires on standby GI: Tolerating diet, small bowel movement yesterday, continue bowel regimen : Voiding well, weight still up from baseline, continue diuresis PT/OT, patient ambulating around the unit Disposition: Patient has good family support DVT prophylaxis, SCDs in place DVT study negative for DVT to CORNELL LE Continue DAPT, metoprolol, Lipitor, amiodarone Patient seen and examined by Dr. Ross. Plan of care discussed with patient and multidisciplinary team. The patient's questions were answered. 11/17/24 POD 8 AAOx3 Pending updated labs, replace electrolytes as needed, hgb 7.8, plts 138 Patient complaints of left back pain, pain management following HIT panel positive, pending RACHELLE Discussed with hematology plan for anticoagulation, will hold off on argatroban but watch closely for any thrombosis, platelet counts and await RACHELLE testing result. Patient reports improved pain, Multimodal pain control, pain management following Respiratory: Room air, Encourage IS, Deep Breathing, CXR reviewed, small bilateral effusions, will give Lasix 40mg IV x1 today NSR, monitoring BP closly, pacing wires on standby GI: Tolerating diet, reports BM, continue bowel regimen : Voiding well, weight still up from baseline, continue diuresis PT/OT, patient ambulating around the unit Disposition: Patient has good family support DVT prophylaxis, SCDs in place DVT study negative for DVT to CORNELL LE Continue DAPT, metoprolol, Lipitor, amiodarone Patient seen and examined by Dr. Ross. Plan of care discussed with patient and multidisciplinary team. The patient's questions were answered. 11/18/24 POD 9 AAOx3 Pending updated labs, replace electrolytes as needed, hgb 7.8, plts 133 Please no more labs, patient complaining of being poked all the time and is becoming very frustrated. Today, a repeat type and screen was completed. Will hold off on any further lab draws until RACHELLE is resulted. Patient complaints of left back pain, pain management following HIT panel positive, pending RACHELLE Discussed with hematology plan for anticoagulation, will hold off on argatroban but watch closely for any thrombosis, platelet counts and await RACHELLE testing result. Patient reports improved pain, Multimodal pain control, pain management following Respiratory: Room air, Encourage IS, Deep Breathing, CXR reviewed, bilateral pleural effusions, ordered US to evaluate size for possible pigtail placement NSR, monitoring BP closly, pacing wires on standby GI: Tolerating diet, reports BM, continue bowel regimen : Voiding well, weight still up from baseline, continue diuresis PT/OT, patient ambulating around the unit Disposition: Patient has good family support. DVT prophylaxis, SCDs in place DVT study negative for DVT to CORNELL LE Continue DAPT, metoprolol, Lipitor, amiodarone Patient seen and examined by Dr. Ross. Plan of care discussed with patient and multidisciplinary team. The patient's questions were answered. Consultants: cardiology, cardiovascular surgery Code status: full code Plan discussed with: patient, collaborating MD, nurse, interdisc care team at 0859 RPT #:[id number] END OF REPORT [facility] 2024-11-17 14:56:00 [facility] ([facility]) Tereso/Oncology Progress Note REPORT#:[id number] REPORT STATUS: Signed REPORT INITIALIZATION DATE:11/17/24 TIME: 1455 PATIENT: YUNIER PRATT UNIT #: [id number] ROOM/BED: [place] [id number] : 74 AGE: 54 SEX: F ATTEND: Flynn Becerra MD ADM AUTHOR: Huey Michelle MD REPT SERVICE DT/TIME: 11/17/241455 * ALL edits or amendments must be made on the electronic/computer document * Subjective Chief Complaint: pt doing ok. s/p 2 u prbc HGB at 7.8 positive DECLAN ab ELISAA and RACHELLE pending. fu on thrombocytopenia c/o chest discomfort and asks for pain meds Objective Physical Exam VS: Vital Signs Date Temp Pulse Resp B/P B/P Mean Pulse Ox FiO2 11/16-11/17 36.5-37.5 75-101 14-31 106-181/64-89 0.0-119 91-100 Last Documented: Result Date Time Pulse Ox 97 11/17 1212 B/P 133/89 11/17 1212 B/P Mean 0.0 11/17 1212 O2 Delivery Room air 11/17 1212 Temp 36.8 11/17 1212 Pulse 75 11/17 1212 Resp 18 11/17 1212 FiO2 21 11/16 0743 O2 Flow Rate 0 11/11 1601 General appearance: awake HEENT: pupils reactive to light Cardiovascular: regular rate and rhythm, normal S1/S2 Respiratory: symmetric expansion Abdomen: non-tender, soft Extremities: edema, moves all, normal temperature, no edema 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, oriented X 3, no motor deficits Current Medications Medications: Active Meds + DC'd Last 24 Hrs Furosemide (LASIX 40 mg/4 mL INJECTION) 40 MG ONCE ONE IV (DC) Bisacodyl (DULCOLAX) 10 MG ONCE ONE RECTAL (DC) Lidocaine (Lidocaine 4% Patch) 1 PATCH DAILY TOPICAL Furosemide (LASIX 20MG INJ) 20 MG BID 9A 5P IV (DC) Tizanidine HCl (ZANAFLEX) 4 MG Q8HR PO Hydrocodone Bitart/Acetaminophen (NORCO 7.5/325 TABLET) 2 TAB Q4H PRN PRN PO Hydromorphone HCl (DILAUDID) 0.5 MG Q6H PRN PRN IV Insulin Glargine (Semglee) 20 UNIT BID SUBQ Ipratropium Hazard (ATROVENT) 500 MCG RTQ2H PRN PRN INH Cyanocobalamin (Vitamin B-12 500 mcg tab) 500 MCG DAILY PO Ferrous Sulfate (FERROUS SULFATE) 325 MG DAILY PO Quetiapine Fumarate (SeroqueL) 200 MG BEDTIME PO Gabapentin (NEURONTIN) 1,200 MG TID PO Insulin Human Lispro (Admelog) 0 AC HS SUBQ Nicotine (NICODERM) 7 MG DAILY TRANSDERM (DC) Amitriptyline HCl (ELAVIL) 25 MG BEDTIME PO Naloxone HCl (NARCAN) 0.4 MG Q2M PRN PRN IV Clopidogrel Bisulfate (Plavix) 75 MG DAILY PO Polyethylene Glycol (MIRALAX) 17 GM DAILY PO Pantoprazole (PROTONIX) 40 MG DAILY@0600 PO Aspirin (ASPIRIN) 81 MG DAILY PO Amiodarone HCl (CORDARONE) 200 MG TID PO Atorvastatin Calcium (LIPITOR) 40 MG 2100 PO Docusate Sodium (COLACE) 100 MG BID PO Metoprolol Tartrate (LOPRESSOR) 12.5 MG Q12HR PO Sennosides (Senna Lax 8.6 MG TABLET) 17.2 MG BEDTIME PO Dextrose/Water (DEXTROSE 10% IN WATER) 125 ML ASDIR PRN IV (CKD) Dextrose/Water (DEXTROSE 10% IN WATER) 250 ML ASDIR PRN IV (CKD) Glucagon (GLUCAGON) 1 MG ASDIR PRN IM Magnesium Sulfate (MAGNESIUM SULFATE 4GM/SWFI 100ML) 100 ML ASDIR PRN IV Magnesium Sulfate (MAGNESIUM SULFATE 2GM/SWFI 50ML) 50 ML ASDIR PRN IV Magnesium Sulfate/Dextrose (MAGNESIUM SULFATE 1GM/D5W 100ML) 100 ML ASDIR PRN IV Ondansetron HCl (ZOFRAN) 4 MG Q6H PRN PRN IV Potassium Chloride (KCL 20MEQ/SWFI 100ML) 100 ML ASDIR PRN IV Fluticasone Propionate (Flonase Nasal Baxter) 2 SPRAY DAILY NASAL (CKD) Results Findings/Data: Laboratory Tests 11/17/24 0406: [Embedded Image Not Available] Laboratory Tests 11/17 11/17 11/17 11/16 11/16 1210 0722 0406 2023 1624 Chemistry Sodium (134 - 147 mEq/L) 139 Potassium (3.4 - 5.0 mEq/L) 4.4 Chloride (100 - 108 mEq/L) 104 Carbon Dioxide (21 - 33 mEq/l) 29 Anion Gap (0 - 20) 10 BUN (7 - 25 mg/dL) 14 Creatinine (0.6 - 1.3 mg/dL) 0.7 Glomerular Filtr Rate (90 - 95) 104.0 H Glucose (77 - 141 mg/dL) 175 H POC Glucose (70 - 110 MG/DL) 148 H 153 H 133 H 211 H Calcium (8.0 - 10.5 mg/dL) 8.4 Magnesium (1.6 - 2.6 mg/dL) 1.92 Laboratory Tests 11/176 Hematology WBC (4.5 - 11.0 x10 3/uL) 6.4 RBC (3.54 - 5.02 x10 6/uL) 3.17 L Hgb (11.0 - 15.0 g/dL) 7.8 L Hct (33.0 - 45.0 %) 26.0 L MCV (81.0 - 99.0 fL) 82.0 MCH (27.0 - 33.0 pg) 24.6 L MCHC (33.0 - 37.0 g/dL) 30.0 L RDW (11.5 - 14.5 %) 16.7 H Plt Count (150 - 400 x10 3/uL) 138 L MPV (7.0 - 9.0 fL) 12.1 H Neut % (Auto) (56.0 - 77.0 %) 67.2 Lymph % (Auto) (14.0 - 32.0 %) 16.5 Brule % (Auto) (4.8 - 9.0 %) 10.5 H Eos % (Auto) (0.3 - 3.7 %) 4.6 H Baso % (Auto) (0.0 - 2.0 %) 0.6 Neut # (Auto) (2.0 - 7.6 x10 3/uL) 4.28 Lymph # (Auto) (1.0 - 3.8 x10 3/uL) 1.05 Brule # (Auto) (0.1 - 0.8 x10 3/uL) 0.67 Eos # (Auto) (0.0 - 0.2 x10 3/uL) 0.29 H Baso # (Auto) (0.0 - 0.2 x10 3/uL) 0.04 Abs Immat Gran (auto) (0.00 - 0.03 x10 3/uL) 0.04 H Immature Gran % (0.0 - 2.0 %) 0.6 Nucleated RBC % (0 - 0 %) 0.0 Nucleated RBCs # (Man) (0.0 - 0.1 x10 3/uL) 0.00 Radiology data: Recent Impressions: RADIOLOGY - XR CHEST 1 V 11/17 0643 Report Impression - Status: SIGNED Entered: 11/17/2024 1020 IMPRESSION: Slight worsening central vasculature congestion with likely bilateral effusions and adjacent atelectasis. Location: H2 Impression By: Janet Winters M.D. Diagnosis, Assessment Plan Consultants: cardiology, cardiovascular surgery Free Text DxA P Notes Free Text DxA P Notes: 1. Thrombocytopenia 2. Positive DECLAN antibody test 3. s/p CABG x5 on 11/09/24 POD #3 4. Anemia post surgery acute on chronic Per MICA ([place] [employer]) guidelines of diagnosis and management of DECLAN This patient has a low clinical probability of DECLAN based on 4Ts scoring - Thrombocytopenia >50% but timing less than 4 days from exposure, and no thrombosis. Other possible causes of thrombocytopenia exist (related to consumption and blood loss post surgery as- HGB dropped as well). she is at 3 point score which is low probability. Laboratory testing DECLAN positive by EISA but RACHELLE is pending which is more specific test. 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 This could be false positive but given positive test until RACHELLE assay is available will consider non heparin anticoagulant argatroban to prevent future thrombosis and ischemia risk. If RACHELLE is negative can dc argatroban. If RACHELLE is positive would transition to DOAC such as eliquis. This patient has a high risk of bleeding as post op state and HGB 6.6. low HIT probability. Hence will also check with [facility] if they feel strongly against starting argatroban weighing risk and benefit will hold off on argatroban but watch closely for any thrombosis, monitor platelet counts and await RACHELLE testing. 11/14 * HGB 9.5 plt 114k s/p 2 u prbc. seems transient thrombocytopenia more likely from consumption. * after d/w [facility] decided against any needs for argatroban unless positive RACHELLE noted. * platelet ct improving * cbc in am 11/16 * HGB 8.6 plt 118k * rachelle still pending * continue asa + plavix * supportive meds 11/17 * HGB 7.8 plt 138k * RACHELLE pending * continue on asa and plavix * supportive meds per primary team and CV surgery at 1458 RPT #:[id number] END OF REPORT [facility] 2024-11-17 12:12:00 [facility] ([facility]) Cardiology Progress Note REPORT#:[id number] REPORT STATUS: Signed REPORT INITIALIZATION DATE:11/17/24 TIME: 1211 PATIENT: YUNIER PRATT UNIT #: [id number] ROOM/BED: [place] [id number] : 74 AGE: 54 SEX: F ATTEND: Flynn Becerra MD ADM AUTHOR: Celeste Diana APRN REPT SERVICE DT/TIME: 11/17/24 1212 * ALL edits or amendments must be made on the electronic/computer document * Subjective Chief complaint: Shortness of breath and chest pain Free Text Subj Notes Free Text Subj Notes: NAD Noted. Objective General VS/I O: 24 hour I O ending at 0700: 11/17 0700 11/16 1900 Intake Total 100 500 Output Total 1300 Balance 100 -800 Intake, Oral 100 500 Number 1 Bowel Movements Number Voids 1 Output, Urine 1300 Patient 78.15 kg Weight Weight Standing scale Measurement Method Vital Signs: Date Time Temp Pulse Resp B/P B/P Pulse O2 O2 Flow FiO2 Mean Ox Delivery Rate 11/17 1212 98.2 75 18 133/89 0.0 97 Room air 11/17 0820 93 Room air 11/17 0652 98.2 75 17 124/64 0.0 94 Room air 11/17 0617 75 14 93 11/17 0520 77 22 109/64 81 92 11/17 0436 98.4 75 27 106/66 79.2 96 11/17 0245 78 16 93 11/16 2349 99.5 76 19 133/74 93.7 93 11/16 2345 90 23 95 11/16 2236 91 28 161/75 108 98 11/16 2208 97 31 181/83 119 100 11/16 2145 91 26 98 11/16 2100 95 Room air 11/16 2045 91 26 95 11/16 1916 96 149/70 101 97 11/16 1916 97.7 101 20 149/70 0.0 91 Room air 11/16 1626 98.1 84 18 141/68 91.9 100 PATIENT WEIGHT: Weight (lb): 172 Weight (oz): 4.66 Weight (kg): 78.150 Medications: Active Meds + DC'd Last 24 Hrs Furosemide (LASIX 40 mg/4 mL INJECTION) 40 MG ONCE ONE IV (DC) Bisacodyl (DULCOLAX) 10 MG ONCE ONE RECTAL (DC) Lidocaine (Lidocaine 4% Patch) 1 PATCH DAILY TOPICAL Furosemide (LASIX 20MG INJ) 20 MG BID 9A 5P IV (DC) Tizanidine HCl (ZANAFLEX) 4 MG Q8HR PO Hydrocodone Bitart/Acetaminophen (NORCO 7.5/325 TABLET) 2 TAB Q4H PRN PRN PO Hydromorphone HCl (DILAUDID) 0.5 MG Q6H PRN PRN IV Insulin Glargine (Semglee) 20 UNIT BID SUBQ Ipratropium Hazard (ATROVENT) 500 MCG RTQ2H PRN PRN INH Cyanocobalamin (Vitamin B-12 500 mcg tab) 500 MCG DAILY PO Ferrous Sulfate (FERROUS SULFATE) 325 MG DAILY PO Quetiapine Fumarate (SeroqueL) 200 MG BEDTIME PO Gabapentin (NEURONTIN) 1,200 MG TID PO Insulin Human Lispro (Admelog) 0 AC HS SUBQ Nicotine (NICODERM) 7 MG DAILY TRANSDERM (DC) Amitriptyline HCl (ELAVIL) 25 MG BEDTIME PO Naloxone HCl (NARCAN) 0.4 MG Q2M PRN PRN IV Clopidogrel Bisulfate (Plavix) 75 MG DAILY PO Polyethylene Glycol (MIRALAX) 17 GM DAILY PO Pantoprazole (PROTONIX) 40 MG DAILY@0600 PO Aspirin (ASPIRIN) 81 MG DAILY PO Amiodarone HCl (CORDARONE) 200 MG TID PO Atorvastatin Calcium (LIPITOR) 40 MG 2100 PO Docusate Sodium (COLACE) 100 MG BID PO Metoprolol Tartrate (LOPRESSOR) 12.5 MG Q12HR PO Sennosides (Senna Lax 8.6 MG TABLET) 17.2 MG BEDTIME PO Dextrose/Water (DEXTROSE 10% IN WATER) 125 ML ASDIR PRN IV (CKD) Dextrose/Water (DEXTROSE 10% IN WATER) 250 ML ASDIR PRN IV (CKD) Glucagon (GLUCAGON) 1 MG ASDIR PRN IM Magnesium Sulfate (MAGNESIUM SULFATE 4GM/SWFI 100ML) 100 ML ASDIR PRN IV Magnesium Sulfate (MAGNESIUM SULFATE 2GM/SWFI 50ML) 50 ML ASDIR PRN IV Magnesium Sulfate/Dextrose (MAGNESIUM SULFATE 1GM/D5W 100ML) 100 ML ASDIR PRN IV Ondansetron HCl (ZOFRAN) 4 MG Q6H PRN PRN IV Potassium Chloride (KCL 20MEQ/SWFI 100ML) 100 ML ASDIR PRN IV Fluticasone Propionate (Flonase Nasal Baxter) 2 SPRAY DAILY NASAL (CKD) Physical Exam General appearance: alert, awake, oriented Head/Eyes: atraumatic, normocephalic Neck: non-tender, no JVD Cardiovascular: CV assessment: regular rate and rhythm Respiratory: decreased breath sounds, shortness of breath, mild SOB Abdomen: soft, non-tender, normal bowel sounds, no distention Genitourinary: no flank pain, no urinary catheter Lower extremity: LE assessment: no edema Musculoskeletal: normal inspection 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, oriented X 3, normal speech Skin: dry, intact, normal color Psychiatry: normal affect, normal judgment/insight, normal mood Results Findings/Data: Laboratory Tests 11/17 11/17 11/16 11/16 0722 0406 2023 162 Chemistry Sodium (134 - 147 mEq/L) 139 Potassium (3.4 - 5.0 mEq/L) 4.4 Chloride (100 - 108 mEq/L) 104 Carbon Dioxide (21 - 33 mEq/l) 29 Anion Gap (0 - 20) 10 BUN (7 - 25 mg/dL) 14 Creatinine (0.6 - 1.3 mg/dL) 0.7 Glomerular Filtr Rate (90 - 95) 104.0 H Glucose (77 - 141 mg/dL) 175 H POC Glucose (70 - 110 MG/DL) 153 H 133 H 211 H Calcium (8.0 - 10.5 mg/dL) 8.4 Magnesium (1.6 - 2.6 mg/dL) 1.92 Laboratory Tests 11/17 0406 Hematology WBC (4.5 - 11.0 x10 3/uL) 6.4 RBC (3.54 - 5.02 x10 6/uL) 3.17 L Hgb (11.0 - 15.0 g/dL) 7.8 L Hct (33.0 - 45.0 %) 26.0 L MCV (81.0 - 99.0 fL) 82.0 MCH (27.0 - 33.0 pg) 24.6 L MCHC (33.0 - 37.0 g/dL) 30.0 L RDW (11.5 - 14.5 %) 16.7 H Plt Count (150 - 400 x10 3/uL) 138 L MPV (7.0 - 9.0 fL) 12.1 H Neut % (Auto) (56.0 - 77.0 %) 67.2 Lymph % (Auto) (14.0 - 32.0 %) 16.5 Brule % (Auto) (4.8 - 9.0 %) 10.5 H Eos % (Auto) (0.3 - 3.7 %) 4.6 H Baso % (Auto) (0.0 - 2.0 %) 0.6 Neut # (Auto) (2.0 - 7.6 x10 3/uL) 4.28 Lymph # (Auto) (1.0 - 3.8 x10 3/uL) 1.05 Brule # (Auto) (0.1 - 0.8 x10 3/uL) 0.67 Eos # (Auto) (0.0 - 0.2 x10 3/uL) 0.29 H Baso # (Auto) (0.0 - 0.2 x10 3/uL) 0.04 Abs Immat Gran (auto) (0.00 - 0.03 x10 3/uL) 0.04 H Immature Gran % (0.0 - 2.0 %) 0.6 Nucleated RBC % (0 - 0 %) 0.0 Nucleated RBCs # (Man) (0.0 - 0.1 x10 3/uL) 0.00 Laboratory Tests 11/17 0406 Chemistry Magnesium (1.6 - 2.6 mg/dL) 1.92 Radiology data: Recent Impressions: RADIOLOGY - XR CHEST 1 V 11/17 0643 Report Impression - Status: SIGNED Entered: 11/17/2024 1020 IMPRESSION: Slight worsening central vasculature congestion with likely bilateral effusions and adjacent atelectasis. Location: H2 Impression By: Janet Winters M.D. Diagnosis, Assessment Plan Consultants: cardiology, cardiovascular surgery Free Text DxA P Notes Free Text DxA P Notes: 54 YO patient with MH of HTN, DM, neuropathy, tobacco abuse who presented at [facility] with shortness of breath and chest pain. She was ruled for NSTEMI, had LHC which revealed multivessed CAD. She is transferred to [facility] for CABG evaluation. 1. NSTEMI/Multivessel CAD * Echo LVEF 50-54%, G1DD, mild MR * Plavix ASA, BB, statin * S/p CABG (ASH-LAD, SVG-OM1, SVG-OM2, SVG-Diag, SVG-PDA) and ALAA * given 1 dose of IV Lasix 40 mg 2. Hypertension * BP stable, continue BB. 3. Diabetes mellitus * A1c 8 * manage per CTS 4. Acute Diastolic CHF, present to admission * LVEF 50-54% * cont GDMT 5. Positive heparin-induced thrombocytopenia * Platelets 61K->114K->103K * Hematology following 6. Postoperative anemia * Hemoglobin 6.6-> 9.9 * s/p 2 units PRBC 11/[address] Lindquist 11/17/24 VS stable cont to monitor closely MDM per Dr. Richardson. at 1734 at 1830 RPT #:[id number] END OF REPORT [facility] 2024-11-17 10:52:00 [facility] Cardiothoracic Surgery Prog REPORT#:[id number] REPORT STATUS: Signed REPORT INITIALIZATION DATE:11/17/24 TIME: 105 PATIENT: YUNIER PRATT UNIT #: [id number] ROOM/BED: [place] [id number] : 74 AGE: 54 SEX: F ATTEND: Flynn Becerra MD ADM AUTHOR: Talita Monzon APRN-SKILLED HELPER REPT SERVICE DT/TIME: 11/17/24 1052 * ALL edits or amendments must be made on the electronic/computer document * General Post-op: day 8 Status post: 11/09/24 1. Coronary artery bypass graft surgery x5 (ASH to LAD, saphenous vein to diagonal, saphenous vein to first marginal, saphenous vein to second marginal, saphenous vein to PDA). 2. Amputation of left atrial appendage. 3. Endoscopic vein harvest bilateral greater saphenous vein. 4. Posterior pericardiotomy. Subjective Chief complaint: Post op Review of Systems Constitutional: Reports: fatigue, generalized weakness. Denies: chills, fever. Skin: Denies: abrasion. Eyes: Denies: redness. ENT: Denies: ear drainage. Respiratory: Denies: HARTMAN (dyspnea on exertion), hemoptysis, non productive cough, SOB. Cardiovascular: Denies: chest pain, HARTMAN (dyspnea on exertion), edema. GI: Denies: abdominal pain. : Denies: dysuria. Musculoskeletal: Denies: arthritis. Heme: Denies: adenopathy, bleeding. All systems rev neg: except as marked Objective General VS/I O Last Documented: Result Date Time Pulse Ox 93 11/18 819 O2 Delivery Room air 03/29 0820 B/P 124/64 11/18 651 B/P Mean 0.0 11/18 651 Temp 98.2 11/18 651 Pulse 75 11/18 651 Resp 17 11/18 651 FiO2 21 11/16 0743 O2 Flow Rate 0 11/11 1601 24 hour I O ending at 0700: 11/17 0700 11/16 1900 Intake Total 100 500 Output Total 1300 Balance 100 -800 Intake, Oral 100 500 Number 1 Bowel Movements Number Voids 1 Output, Urine 1300 Patient 78.15 kg Weight Weight Standing scale Measurement Method PATIENT WEIGHT: Weight (lb): 172 Weight (oz): 4.66 Weight (kg): 78.150 Dietitian Nutrition assessment The data set between the solid lines has been imported from the dietitian's assessment. BMI Calculated: 27.8 Nutrition related diagnosis: Nutrition diagnosis details: Nutrition problem: Increased nutrient needs Nutrition etiology: Decreased/poor appetite, Decreased intake, Chronic disease Nutrition signs and symptoms: Mild muscle loss, 20% or more weight loss, S/P SURGERY Nutrition prescription: RECOMMEND: 1. RECOMMEND A CCD5 CARDIAC DIET. 2. RECOMMEND GLUCERNA TID WITH MEALS. Dietitian name: Evelin Perez, DIET Assessment completed: 11/16/24 Physical Exam General appearance: alert, awake, oriented Wound/incision: Location: sternum Site condition: incision intact, no changes in wound, no drainage HEENT: mucosal membranes moist, pupils reactive to light Neck: full range of motion, non-tender Cardiovascular: regular rate rhythm Respiratory: symmetric expansion, no distress Abdomen: soft, non-tender Extremities: dry, moves all 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, oriented X 3 Skin: dry, intact Current Medications Medications: Active Meds + DC'd Last 24 Hrs Bisacodyl (DULCOLAX) 10 MG ONCE ONE RECTAL (DC) Lidocaine (Lidocaine 4% Patch) 1 PATCH DAILY TOPICAL Furosemide (LASIX 20MG INJ) 20 MG BID 9A 5P IV (DC) Tizanidine HCl (ZANAFLEX) 4 MG Q8HR PO Hydrocodone Bitart/Acetaminophen (NORCO 7.5/325 TABLET) 2 TAB Q4H PRN PRN PO Hydromorphone HCl (DILAUDID) 0.5 MG Q6H PRN PRN IV Insulin Glargine (Semglee) 20 UNIT BID SUBQ Ipratropium Hazard (ATROVENT) 500 MCG RTQ2H PRN PRN INH Cyanocobalamin (Vitamin B-12 500 mcg tab) 500 MCG DAILY PO Ferrous Sulfate (FERROUS SULFATE) 325 MG DAILY PO Quetiapine Fumarate (SeroqueL) 200 MG BEDTIME PO Gabapentin (NEURONTIN) 1,200 MG TID PO Insulin Human Lispro (Admelog) 0 AC HS SUBQ Nicotine (NICODERM) 7 MG DAILY TRANSDERM (DC) Amitriptyline HCl (ELAVIL) 25 MG BEDTIME PO Naloxone HCl (NARCAN) 0.4 MG Q2M PRN PRN IV Clopidogrel Bisulfate (Plavix) 75 MG DAILY PO Polyethylene Glycol (MIRALAX) 17 GM DAILY PO Pantoprazole (PROTONIX) 40 MG DAILY@0600 PO Aspirin (ASPIRIN) 81 MG DAILY PO Amiodarone HCl (CORDARONE) 200 MG TID PO Atorvastatin Calcium (LIPITOR) 40 MG 2100 PO Docusate Sodium (COLACE) 100 MG BID PO Metoprolol Tartrate (LOPRESSOR) 12.5 MG Q12HR PO Sennosides (Senna Lax 8.6 MG TABLET) 17.2 MG BEDTIME PO Dextrose/Water (DEXTROSE 10% IN WATER) 125 ML ASDIR PRN IV (CKD) Dextrose/Water (DEXTROSE 10% IN WATER) 250 ML ASDIR PRN IV (CKD) Glucagon (GLUCAGON) 1 MG ASDIR PRN IM Magnesium Sulfate (MAGNESIUM SULFATE 4GM/SWFI 100ML) 100 ML ASDIR PRN IV Magnesium Sulfate (MAGNESIUM SULFATE 2GM/SWFI 50ML) 50 ML ASDIR PRN IV Magnesium Sulfate/Dextrose (MAGNESIUM SULFATE 1GM/D5W 100ML) 100 ML ASDIR PRN IV Ondansetron HCl (ZOFRAN) 4 MG Q6H PRN PRN IV Potassium Chloride (KCL 20MEQ/SWFI 100ML) 100 ML ASDIR PRN IV Fluticasone Propionate (Flonase Nasal Baxter) 2 SPRAY DAILY NASAL (CKD) Results Findings/Data: Laboratory Tests 11/17 11/17 11/16 11/16 11/16 0722 0406 4 1624 1145 Chemistry Sodium (134 - 147 mEq/L) 139 Potassium (3.4 - 5.0 mEq/L) 4.4 Chloride (100 - 108 mEq/L) 104 Carbon Dioxide (21 - 33 mEq/l) 29 Anion Gap (0 - 20) 10 BUN (7 - 25 mg/dL) 14 Creatinine (0.6 - 1.3 mg/dL) 0.7 Glomerular Filtr Rate (90 - 95) 104.0 H Glucose (77 - 141 mg/dL) 175 H POC Glucose (70 - 110 MG/DL) 153 H 133 H 211 H 197 H Calcium (8.0 - 10.5 mg/dL) 8.4 Magnesium (1.6 - 2.6 mg/dL) 1.92 Laboratory Tests 11/17 0406 Hematology WBC (4.5 - 11.0 x10 3/uL) 6.4 RBC (3.54 - 5.02 x10 6/uL) 3.17 L Hgb (11.0 - 15.0 g/dL) 7.8 L Hct (33.0 - 45.0 %) 26.0 L MCV (81.0 - 99.0 fL) 82.0 MCH (27.0 - 33.0 pg) 24.6 L MCHC (33.0 - 37.0 g/dL) 30.0 L RDW (11.5 - 14.5 %) 16.7 H Plt Count (150 - 400 x10 3/uL) 138 L MPV (7.0 - 9.0 fL) 12.1 H Neut % (Auto) (56.0 - 77.0 %) 67.2 Lymph % (Auto) (14.0 - 32.0 %) 16.5 Brule % (Auto) (4.8 - 9.0 %) 10.5 H Eos % (Auto) (0.3 - 3.7 %) 4.6 H Baso % (Auto) (0.0 - 2.0 %) 0.6 Neut # (Auto) (2.0 - 7.6 x10 3/uL) 4.28 Lymph # (Auto) (1.0 - 3.8 x10 3/uL) 1.05 Brule # (Auto) (0.1 - 0.8 x10 3/uL) 0.67 Eos # (Auto) (0.0 - 0.2 x10 3/uL) 0.29 H Baso # (Auto) (0.0 - 0.2 x10 3/uL) 0.04 Abs Immat Gran (auto) (0.00 - 0.03 x10 3/uL) 0.04 H Immature Gran % (0.0 - 2.0 %) 0.6 Nucleated RBC % (0 - 0 %) 0.0 Nucleated RBCs # (Man) (0.0 - 0.1 x10 3/uL) 0.00 Radiology data: Recent Impressions: RADIOLOGY - XR CHEST 1 V 11/17 0643 Report Impression - Status: SIGNED Entered: 11/17/2024 1020 IMPRESSION: Slight worsening central vasculature congestion with likely bilateral effusions and adjacent atelectasis. Location: H2 Impression By: Janet Winters M.D. Results: labs reviewed, vital signs stable, alfonsom personally rev'd, current med profile rev'd Diagnosis, Assessment Plan Hospital course to date: This is a 54-year-old female with a past medical history of hypertension, diabetes on insulin who presented to [facility] with complaints of chest pain. She was ruled in for NSTEMI on her blood work. 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 Patient was transferred to [facility] for further evaluation and workup of multivessel CAD. Patient denies any alcohol or drug use. He does report half pack a day smoking for the past 40 years. 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 Assessment/plan 1. Hypertension 2. Diabetes on insulin 3. NSTEMI 4. Multivessel CAD Patient seen and examined. Patient will begin workup for consideration for coronary bypass graft surgery. Appropriate preoperative studies will be completed. Echocardiogram pending vein mapping pending Carotid Doppler pending Will obtain pulmonary function test due to patient's history of smoking Further recs to follow based on further clinical workup. 3/21/25 1. Coronary artery bypass graft surgery x5 (ASH to LAD, saphenous vein to diagonal, saphenous vein to first marginal, saphenous vein to second marginal, saphenous vein to PDA). 2. Amputation of left atrial appendage. 3. Endoscopic vein harvest bilateral greater saphenous vein. 4. Posterior pericardiotomy. 11/10/24 POD 1 AAOx3 Patient reports pain, Multimodal pain control Respiratory: 4 L nasal cannula Encourage IS, Deep Breathing, CXR reviewed chest tube drainage 25 and 25 so far this morning after walking. Chest tubes causing marked amount of pain. Will DC chest tubes Cardiac: Sinus rhythm, pacing wires on standby GI: Advance diet as tolerated, monitor glycemic control : Ramirez in place, monitor urine output UO: 765 overnight PT/OT, patient walked the unit Disposition: Patient has good family support DVT prophylaxis, SCDs in place Continue DAPT, metoprolol, Lipitor, amiodarone Labs reveiwed- replace electrolytes as needed Patient seen and examined by Dr. Ross. Plan of care discussed with patient and multidisciplinary team. The patient's questions were answered 11/11/24 POD 2 AAOx3 Patient reports pain, Multimodal pain control, pain management following Respiratory: Room air Encourage IS, Deep Breathing, CXR reviewed, chest tubes removed yesterday. Bilateral pleural effusions. Continue diuresis for now. Patient may need right pigtail placement GI: Advance diet as tolerated, monitor glycemic control : F Ramirez DC'd yesterday. Voiding well PT/OT, patient walked the unit Disposition: Patient has good family support DVT prophylaxis, SCDs in place Continue DAPT, metoprolol, Lipitor, amiodarone Labs reveiwed- replace electrolytes as needed Patient seen and examined by Dr. Ross. Plan of care discussed with patient and multidisciplinary team. The patient's questions were answered Give Lasix 20 IV today. 11/12/24 POD 3 AAOx3 Patient reports pain, Multimodal pain control, pain management following, consider decreasing pain m meds. Respiratory: Room air Encourage IS, Deep Breathing, CXR reviewed, pleural effusion appears to be improving continue diuresing. GI: Tolerating diet, pending BM : Voiding well PT/OT, patient walked the unit Disposition: Patient has good family support DVT prophylaxis, SCDs in place Continue DAPT, metoprolol, Lipitor, amiodarone Labs reveiwed- replace electrolytes as needed Patient seen and examined by Dr. Ross. Plan of care discussed with patient and multidisciplinary team. The patient's questions were answered 20 of Lasix given. Platelets trending down, Will order HIT panel 11/13/24 POD 4 AAOx3 Labs reviewed, replace electrolytes as needed, hgb dropped to 6.6 from 7.8, plts 61 HIT panel positive, pending RACHELLE Patient reports improved pain, Multimodal pain control, pain management following Respiratory: Room air, Encourage IS, Deep Breathing, CXR reviewed, There are diffuse congestive changes bilaterally. No pneumothorax or pleural effusion is identified. NSR, monitoring BP closly, pacing wires on standby GI: Tolerating diet, pending BM, mom suppository today : Voiding well, urine output 400cc overnight, Lasix today PT/OT, patient walked the unit Disposition: Patient has good family support DVT prophylaxis, SCDs in place DVT study ordered, negative DVT to Left leg, ordered updated bilateral Lower extremity Continue DAPT, metoprolol, Lipitor, amiodarone Labs reviewed- replace electrolytes as needed Patient seen and examined by Dr. Ross. Plan of care discussed with patient and multidisciplinary team. The patient's questions were answered. 11/14/24 POD 5 AAOx3 Pending updated labs, replace electrolytes as needed, yesterday hgb dropped to 6.6 from 7.8, plts 61, pending stool occult HIT panel positive, pending RACHELLE Discussed with hematology plan for anticoagulation, will hold off on argatroban but watch closely for any thrombosis, platelet counts and await RACHELLE testing result. Patient reports improved pain, Multimodal pain control, pain management following Respiratory: Room air, Encourage IS, Deep Breathing, CXR reviewed NSR, monitoring BP closly, pacing wires on standby GI: Tolerating diet, pending BM, mom suppository today : Voiding well, weight still up from baseline, continue diuresis PT/OT, patient ambulating around the unit Disposition: Patient has good family support DVT prophylaxis, SCDs in place DVT study negative for DVT to CORNELL LE Continue DAPT, metoprolol, Lipitor, amiodarone Patient seen and examined by Dr. Ross. Plan of care discussed with patient and multidisciplinary team. The patient's questions were answered. 11/16/24 POD 7 AAOx3 Pending updated labs, replace electrolytes as needed, hgb 8.6, plts 118, pending stool occult Patient complaints of left back pain, pain management following HIT panel positive, pending RACHELLE Discussed with hematology plan for anticoagulation, will hold off on argatroban but watch closely for any thrombosis, platelet counts and await RACHELLE testing result. Patient reports improved pain, Multimodal pain control, pain management following Respiratory: Room air, Encourage IS, Deep Breathing, CXR reviewed, small bilateral effusions, will give Lasix 20mg IV BID NSR, monitoring BP closly, pacing wires on standby GI: Tolerating diet, small bowel movement yesterday, continue bowel regimen : Voiding well, weight still up from baseline, continue diuresis PT/OT, patient ambulating around the unit Disposition: Patient has good family support DVT prophylaxis, SCDs in place DVT study negative for DVT to CORNELL LE Continue DAPT, metoprolol, Lipitor, amiodarone Patient seen and examined by Dr. Ross. Plan of care discussed with patient and multidisciplinary team. The patient's questions were answered. 11/17/24 POD 8 AAOx3 Pending updated labs, replace electrolytes as needed, hgb 7.8, plts 138 Patient complaints of left back pain, pain management following HIT panel positive, pending RACHELLE Discussed with hematology plan for anticoagulation, will hold off on argatroban but watch closely for any thrombosis, platelet counts and await RACHELLE testing result. Patient reports improved pain, Multimodal pain control, pain management following Respiratory: Room air, Encourage IS, Deep Breathing, CXR reviewed, small bilateral effusions, will give Lasix 40mg IV x1 today NSR, monitoring BP closly, pacing wires on standby GI: Tolerating diet, reports BM, continue bowel regimen : Voiding well, weight still up from baseline, continue diuresis PT/OT, patient ambulating around the unit Disposition: Patient has good family support DVT prophylaxis, SCDs in place DVT study negative for DVT to CORNELL LE Continue DAPT, metoprolol, Lipitor, amiodarone Patient seen and examined by Dr. Ross. Plan of care discussed with patient and multidisciplinary team. The patient's questions were answered. Consultants: cardiology, cardiovascular surgery Code status: full code Plan discussed with: patient, collaborating MD, nurse, interdisc care team at 1058 RPT #:[id number] END OF REPORT [facility] 2024-11-17 08:14:00 [facility] Hospitalist Progress Note REPORT#:[id number] REPORT STATUS: Signed REPORT INITIALIZATION DATE:11/17/24 TIME: 813 PATIENT: YUNIER PRATT UNIT #: [id number] ROOM/BED: [place] [id number] : 72 AGE: 54 SEX: F ATTEND: Flynn Becerra MD ADM AUTHOR: Dayanara Man MD R1 REPT SERVICE DT/TIME: 11/17/24 0814 * ALL edits or amendments must be made on the electronic/computer document * Dayanara Man 11/17/24 0814: Subjective Chief complaint: Pending RACHELLE and stool occult Objective General VS/I O: Vital Signs: Date Time Temp Pulse Resp B/P B/P Pulse O2 O2 Flow FiO2 Mean Ox Delivery Rate 11/17 1212 36.8 75 18 133/89 0.0 97 Room air 11/17 0820 93 Room air 11/17 0652 36.8 75 17 124/64 0.0 94 Room air 11/17 0617 75 14 93 11/17 0520 77 22 109/64 81 92 11/17 0436 36.9 75 27 106/66 79.2 96 11/17 0245 78 16 93 11/16 2349 37.5 76 19 133/74 93.7 93 11/16 2345 90 23 95 11/16 2236 91 28 161/75 108 98 11/16 2208 97 31 181/83 119 100 11/16 2145 91 26 98 11/16 2100 95 Room air 11/16 2045 91 26 95 11/16 1916 96 149/70 101 97 11/16 1916 36.5 101 20 149/70 0.0 91 Room air 11/16 1626 36.7 84 18 141/68 91.9 100 24 hour I O ending at 0700: 11/17 0700 11/16 1900 Intake Total 100 500 Output Total 1300 Balance 100 -800 Intake, Oral 100 500 Number 1 Bowel Movements Number Voids 1 Output, Urine 1300 Patient 78.15 kg Weight Weight Standing scale Measurement Method PATIENT WEIGHT: Weight (lb): 172 Weight (oz): 4.66 Weight (kg): 78.150 Medications: Active Meds + DC'd Last 24 Hrs Furosemide (LASIX 40 mg/4 mL INJECTION) 40 MG ONCE ONE IV (DC) Bisacodyl (DULCOLAX) 10 MG ONCE ONE RECTAL (DC) Lidocaine (Lidocaine 4% Patch) 1 PATCH DAILY TOPICAL Furosemide (LASIX 20MG INJ) 20 MG BID 9A 5P IV (DC) Tizanidine HCl (ZANAFLEX) 4 MG Q8HR PO Hydrocodone Bitart/Acetaminophen (NORCO 7.5/325 TABLET) 2 TAB Q4H PRN PRN PO Hydromorphone HCl (DILAUDID) 0.5 MG Q6H PRN PRN IV Insulin Glargine (Semglee) 20 UNIT BID SUBQ Ipratropium Hazard (ATROVENT) 500 MCG RTQ2H PRN PRN INH Cyanocobalamin (Vitamin B-12 500 mcg tab) 500 MCG DAILY PO Ferrous Sulfate (FERROUS SULFATE) 325 MG DAILY PO Quetiapine Fumarate (SeroqueL) 200 MG BEDTIME PO Gabapentin (NEURONTIN) 1,200 MG TID PO Insulin Human Lispro (Admelog) 0 AC HS SUBQ Nicotine (NICODERM) 7 MG DAILY TRANSDERM (DC) Amitriptyline HCl (ELAVIL) 25 MG BEDTIME PO Naloxone HCl (NARCAN) 0.4 MG Q2M PRN PRN IV Clopidogrel Bisulfate (Plavix) 75 MG DAILY PO Polyethylene Glycol (MIRALAX) 17 GM DAILY PO Pantoprazole (PROTONIX) 40 MG DAILY@0600 PO Aspirin (ASPIRIN) 81 MG DAILY PO Amiodarone HCl (CORDARONE) 200 MG TID PO Atorvastatin Calcium (LIPITOR) 40 MG 2100 PO Docusate Sodium (COLACE) 100 MG BID PO Metoprolol Tartrate (LOPRESSOR) 12.5 MG Q12HR PO Sennosides (Senna Lax 8.6 MG TABLET) 17.2 MG BEDTIME PO Dextrose/Water (DEXTROSE 10% IN WATER) 125 ML ASDIR PRN IV (CKD) Dextrose/Water (DEXTROSE 10% IN WATER) 250 ML ASDIR PRN IV (CKD) Glucagon (GLUCAGON) 1 MG ASDIR PRN IM Magnesium Sulfate (MAGNESIUM SULFATE 4GM/SWFI 100ML) 100 ML ASDIR PRN IV Magnesium Sulfate (MAGNESIUM SULFATE 2GM/SWFI 50ML) 50 ML ASDIR PRN IV Magnesium Sulfate/Dextrose (MAGNESIUM SULFATE 1GM/D5W 100ML) 100 ML ASDIR PRN IV Ondansetron HCl (ZOFRAN) 4 MG Q6H PRN PRN IV Potassium Chloride (KCL 20MEQ/SWFI 100ML) 100 ML ASDIR PRN IV Fluticasone Propionate (Flonase Nasal Baxter) 2 SPRAY DAILY NASAL (CKD) Physical Exam Head/Eyes: atraumatic, normocephalic ENT: moist mucosal membranes, normal dentition Neck: full range of motion, supple/no meningismus Cardiovascular: normal heart sounds, regular rate rhythm, no murmur Respiratory: aerating well, clear to auscultation, symmetric expansion, no distress Abdomen: non-tender, soft, no distention, no guarding, no rebound Extremities: moves all, no edema 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, oriented X 3, CNII-XII intact, no motor deficits, no sensory deficits Skin: dry, intact, no rash Psychiatry: normal affect, normal mood Results Findings/Data: Laboratory Tests 11/17 11/17 11/17 11/16 11/16 1210 0722 0406 202 1624 Chemistry Sodium (134 - 147 mEq/L) 139 Potassium (3.4 - 5.0 mEq/L) 4.4 Chloride (100 - 108 mEq/L) 104 Carbon Dioxide (21 - 33 mEq/l) 29 Anion Gap (0 - 20) 10 BUN (7 - 25 mg/dL) 14 Creatinine (0.6 - 1.3 mg/dL) 0.7 Glomerular Filtr Rate (90 - 95) 104.0 H Glucose (77 - 141 mg/dL) 175 H POC Glucose (70 - 110 MG/DL) 148 H 153 H 133 H 211 H Calcium (8.0 - 10.5 mg/dL) 8.4 Magnesium (1.6 - 2.6 mg/dL) 1.92 Laboratory Tests 11/17 0406 Hematology WBC (4.5 - 11.0 x10 3/uL) 6.4 RBC (3.54 - 5.02 x10 6/uL) 3.17 L Hgb (11.0 - 15.0 g/dL) 7.8 L Hct (33.0 - 45.0 %) 26.0 L MCV (81.0 - 99.0 fL) 82.0 MCH (27.0 - 33.0 pg) 24.6 L MCHC (33.0 - 37.0 g/dL) 30.0 L RDW (11.5 - 14.5 %) 16.7 H Plt Count (150 - 400 x10 3/uL) 138 L MPV (7.0 - 9.0 fL) 12.1 H Neut % (Auto) (56.0 - 77.0 %) 67.2 Lymph % (Auto) (14.0 - 32.0 %) 16.5 Brule % (Auto) (4.8 - 9.0 %) 10.5 H Eos % (Auto) (0.3 - 3.7 %) 4.6 H Baso % (Auto) (0.0 - 2.0 %) 0.6 Neut # (Auto) (2.0 - 7.6 x10 3/uL) 4.28 Lymph # (Auto) (1.0 - 3.8 x10 3/uL) 1.05 Brule # (Auto) (0.1 - 0.8 x10 3/uL) 0.67 Eos # (Auto) (0.0 - 0.2 x10 3/uL) 0.29 H Baso # (Auto) (0.0 - 0.2 x10 3/uL) 0.04 Abs Immat Gran (auto) (0.00 - 0.03 x10 3/uL) 0.04 H Immature Gran % (0.0 - 2.0 %) 0.6 Nucleated RBC % (0 - 0 %) 0.0 Nucleated RBCs # (Man) (0.0 - 0.1 x10 3/uL) 0.00 Radiology data: Recent Impressions: RADIOLOGY - XR CHEST 1 V 11/17 0643 Report Impression - Status: SIGNED Entered: 11/17/2024 1020 IMPRESSION: Slight worsening central vasculature congestion with likely bilateral effusions and adjacent atelectasis. Location: H2 Impression By: Janet Winters M.D. Diagnosis, Assessment Plan Hospital course to date: 11/10- POD #1 CABG. c/o post op pain. d/w CV surgery team and pain management consulted 11/11- POD #2 CABG. pain is much better controlled. possibly transfer out of CCU today. chest tubes out yesterday.lasix x1 today 11/12: POD #3. Hyperglycemia improved after adding Lantus 15 BID. 11/13: Hb 6.6 today. 2 units RBC transfused. HIT panel postive, Heme Onc consulted and RACHELLE panel sent. CXR shows diffsue congestive changes. Venous doppler negative. 11/15-11/17: Fecal occult blood and RACHELLE pending Consultants: cardiology, cardiovascular surgery Free Text DxA P Notes Free text DxA P notes: 54 yo F w PMHx of HTN, DM presented for evaluation of SOB and chest pain at [facility]. Patient was found to have NSTEMI. 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 Patient was transported to [facility] for CABG evaluation. Assessment and Plan Heparin Induced Thrombocytopenia -As per Hematology and CTS anticoagulation, will hold off on argatroban but watch closely for any thrombosis, platelet counts and await RACHELLE testing result. 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 FEV1 is 60% of predicted. Ratio is normal. History of Diabetes Mellitus Type-2, Uncontrolled - HGB A1c 8.0 - Blood sugar monitoring - Lantus 20 BID - Insulin SS History of Diabetic Neuropathy - Continue Gabapentin 1,200MG PO TID (verified) - Continue home Cymbalta History of Anxiety - Continue Seroquel 200MG PO bedtime Diet: Regular DVT ppx: Heparin gtt Pepcid FULL CODE Dispo: FOBT and RACHELLE trending. Keep trending Hb Jian Becerrakyra Bridges 11/17/24 1532: Attestations Teaching Physician Attestation F/U visit w/o resident: I personally saw the patient and reviewed the resident's note. I agree with the resident's findings and plan. at 1515 at 1533 RPT #:[id number] END OF REPORT [facility] 2024-11-17 07:49:00 [facility] ([facility]) Pain Management Progress Note REPORT#:[id number] REPORT STATUS: Signed REPORT INITIALIZATION DATE:11/17/24 TIME: 07 PATIENT: YUNIER PRATT UNIT #: [id number] ROOM/BED: [place] [id number] : 72 AGE: 54 SEX: F ATTEND: Flynn Becerra MD ADM AUTHOR: Alejandro Cabrera JOB COACH/JOB DEVELOPER REPT SERVICE DT/TIME: 11/17/24 0749 * ALL edits or amendments must be made on the electronic/computer document * Subjective Chief complaint: Patient seen and examined. Chart/MAR reviewed Patient takes medications for pain that continue to provide relief. They dont feel a need for medication adjustments at the time. Patient being seen for chest pain, acute postoperative pain, diabetic polyneuropathy, muscle spasms, constipation/OIC Patient is still requiring medications to help with managing current problems Patient is requiring IV narcotics to help manage breakthrough pain No fever/chills, chest pain, orthopnea, nausea/vomiting, pruritus, or hallucinations. 14-point ROS undertaken and is unremarkable except as noted. Objective General VS/I O: Vital Signs Date Temp Pulse Resp B/P B/P Mean Pulse Ox FiO2 11/16-11/17 97.7-99.5 75-101 14-31 106-181/64-89 0.0-119 91-100 Last Documented: Result Date Time Pulse Ox 97 11/17 1212 B/P 133/89 11/17 1212 B/P Mean 0.0 11/17 1212 O2 Delivery Room air 11/17 1212 Temp 98.2 11/17 1212 Pulse 75 11/17 1212 Resp 18 11/17 1212 FiO2 21 11/16 0743 O2 Flow Rate 0 11/11 1601 24 hour I O ending at 0700: 11/17 0700 11/16 1900 Intake Total 100 500 Output Total 1300 Balance 100 -800 Intake, Oral 100 500 Number 1 Bowel Movements Number Voids 1 Output, Urine 1300 Patient 78.15 kg Weight Weight Standing scale Measurement Method PATIENT WEIGHT: Weight (lb): 172 Weight (oz): 4.66 Weight (kg): 78.150 Medications: Active Meds + DC'd Last 24 Hrs Furosemide (LASIX 40 mg/4 mL INJECTION) 40 MG ONCE ONE IV (DC) Bisacodyl (DULCOLAX) 10 MG ONCE ONE RECTAL (DC) Lidocaine (Lidocaine 4% Patch) 1 PATCH DAILY TOPICAL Furosemide (LASIX 20MG INJ) 20 MG BID 9A 5P IV (DC) Tizanidine HCl (ZANAFLEX) 4 MG Q8HR PO Hydrocodone Bitart/Acetaminophen (NORCO 7.5/325 TABLET) 2 TAB Q4H PRN PRN PO Hydromorphone HCl (DILAUDID) 0.5 MG Q6H PRN PRN IV Insulin Glargine (Semglee) 20 UNIT BID SUBQ Ipratropium Hazard (ATROVENT) 500 MCG RTQ2H PRN PRN INH Cyanocobalamin (Vitamin B-12 500 mcg tab) 500 MCG DAILY PO Ferrous Sulfate (FERROUS SULFATE) 325 MG DAILY PO Quetiapine Fumarate (SeroqueL) 200 MG BEDTIME PO Gabapentin (NEURONTIN) 1,200 MG TID PO Insulin Human Lispro (Admelog) 0 AC HS SUBQ Nicotine (NICODERM) 7 MG DAILY TRANSDERM (DC) Amitriptyline HCl (ELAVIL) 25 MG BEDTIME PO Naloxone HCl (NARCAN) 0.4 MG Q2M PRN PRN IV Clopidogrel Bisulfate (Plavix) 75 MG DAILY PO Polyethylene Glycol (MIRALAX) 17 GM DAILY PO Pantoprazole (PROTONIX) 40 MG DAILY@0600 PO Aspirin (ASPIRIN) 81 MG DAILY PO Amiodarone HCl (CORDARONE) 200 MG TID PO Atorvastatin Calcium (LIPITOR) 40 MG 2100 PO Docusate Sodium (COLACE) 100 MG BID PO Metoprolol Tartrate (LOPRESSOR) 12.5 MG Q12HR PO Sennosides (Senna Lax 8.6 MG TABLET) 17.2 MG BEDTIME PO Dextrose/Water (DEXTROSE 10% IN WATER) 125 ML ASDIR PRN IV (CKD) Dextrose/Water (DEXTROSE 10% IN WATER) 250 ML ASDIR PRN IV (CKD) Glucagon (GLUCAGON) 1 MG ASDIR PRN IM Magnesium Sulfate (MAGNESIUM SULFATE 4GM/SWFI 100ML) 100 ML ASDIR PRN IV Magnesium Sulfate (MAGNESIUM SULFATE 2GM/SWFI 50ML) 50 ML ASDIR PRN IV Magnesium Sulfate/Dextrose (MAGNESIUM SULFATE 1GM/D5W 100ML) 100 ML ASDIR PRN IV Ondansetron HCl (ZOFRAN) 4 MG Q6H PRN PRN IV Potassium Chloride (KCL 20MEQ/SWFI 100ML) 100 ML ASDIR PRN IV Fluticasone Propionate (Flonase Nasal Baxter) 2 SPRAY DAILY NASAL (CKD) Physical Exam General appearance: alert, awake, oriented, no respiratory distress Head/eyes: atraumatic, EOMI, normocephalic, PERRLA ENT: normal nose, moist mucosal membranes Neck: no JVD, supple/no meningismus Cardiovascular: regular rate rhythm, normal heart sounds, dressing over sternum Respiratory: clear to auscultation, aerating well, symmetric expansion Abdomen: soft, non-tender, no distention Extremities: moves all, no edema, no clubbing, no cyanosis 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, oriented X 3, normal speech, CNII-XII grossly intact Skin: dry Psychiatry: normal affect, normal mood Results Findings/data: Laboratory Tests: 11/17 11/17 11/16 11/16 0722 0406 2024 1624 Chemistry Sodium (134 - 147 mEq/L) 139 Potassium (3.4 - 5.0 mEq/L) 4.4 Chloride (100 - 108 mEq/L) 104 Carbon Dioxide (21 - 33 mEq/l) 29 Anion Gap (0 - 20) 10 BUN (7 - 25 mg/dL) 14 Creatinine (0.6 - 1.3 mg/dL) 0.7 Glomerular Filtr Rate (90 - 95) 104.0 H Glucose (77 - 141 mg/dL) 175 H POC Glucose (70 - 110 MG/DL) 153 H 133 H 211 H Calcium (8.0 - 10.5 mg/dL) 8.4 Magnesium (1.6 - 2.6 mg/dL) 1.92 Hematology WBC (4.5 - 11.0 x10 3/uL) 6.4 RBC (3.54 - 5.02 x10 6/uL) 3.17 L Hgb (11.0 - 15.0 g/dL) 7.8 L Hct (33.0 - 45.0 %) 26.0 L MCV (81.0 - 99.0 fL) 82.0 MCH (27.0 - 33.0 pg) 24.6 L MCHC (33.0 - 37.0 g/dL) 30.0 L RDW (11.5 - 14.5 %) 16.7 H Plt Count (150 - 400 x10 3/uL) 138 L MPV (7.0 - 9.0 fL) 12.1 H Neut % (Auto) (56.0 - 77.0 %) 67.2 Lymph % (Auto) (14.0 - 32.0 %) 16.5 Brule % (Auto) (4.8 - 9.0 %) 10.5 H Eos % (Auto) (0.3 - 3.7 %) 4.6 H Baso % (Auto) (0.0 - 2.0 %) 0.6 Neut # (Auto) (2.0 - 7.6 x10 3/uL) 4.28 Lymph # (Auto) (1.0 - 3.8 x10 3/uL) 1.05 Brule # (Auto) (0.1 - 0.8 x10 3/uL) 0.67 Eos # (Auto) (0.0 - 0.2 x10 3/uL) 0.29 H Baso # (Auto) (0.0 - 0.2 x10 3/uL) 0.04 Abs Immat Gran (auto) (0.00 - 0.03 x10 3/uL) 0.04 H Immature Gran % (0.0 - 2.0 %) 0.6 Nucleated RBC % (0 - 0 %) 0.0 Nucleated RBCs # (Man) (0.0 - 0.1 x10 3/uL) 0.00 Recent Impressions: RADIOLOGY - XR CHEST 1 V 11/17 0643 Report Impression - Status: SIGNED Entered: 11/17/2024 1020 IMPRESSION: Slight worsening central vasculature congestion with likely bilateral effusions and adjacent atelectasis. Location: H2 Impression By: Janet Winters M.D. Diagnosis, Assessment Plan Free text A P: Patient is a 54 year old female who presents with the following: Chest pain, acute postoperative pain -S/P CABG on 11/09/24 -DC oxycodone 10mg q6h PRN -DC Dilaudid 4mg PO q4h PRN, pain scale 4-10 (11/15) -DC Acetaminophen 1000mg q6h (11/15) -Lidocaine patch to chest wall daily 12h on 12h off (11/16) -[place] 7.5/325 mg 2 tabs PO q4h PRN pain scale 4-10 (11/15) -Dilaudid 0.5 mg IV q6h PRN, pain scale 7-10, second line (11/11, decr dose/freq 11/15) -stable Diabetic polyneuropathy -Amitriptyline 25mg at bedtime -Gabapentin 1200mg TID (11/11) -stable Muscle spams -DC Robaxin 500mg PO TID -DC Methocarbamol 1000mg IV q8h x 3 doses (11/14) -Tizanidine 4 mg PO q8h (11/15) -stable Insomnia -Takes seroquel 200mg QHS at home Constipation/OIC -Docusate 100mg BID -Miralax 17gm daily -Senna 17.2 mg at bedtime -Relistor 12 mg subq daily x 3 days (11/13) -Adjustment made Disposition: Rx: [facility]acy: [facility] Past medical history: DM, HTN, CAD Past surgical history: CABG, ALAA, PP, EVH Family history: Noncontributory Social history: denies drugs, alcohol, smoking Allergies: NKDA All pertinent diagnostics/labs from the last 24 hours and during the course of the admission were reviewed. Plan discussed with the patient and the nurse. All questions were answered. Patient will be monitored for deleterious side effects associated with opioids and sedative medications. Medications will be adjusted further clinical course. Risks versus benefits of opioid medications were reviewed to include, but not limited to respiratory depression, accidental overdose, altered mental status, sudden , constipation which could result in bowel obstruction, seizures, withdrawal, dependency/addiction, risk for falls. Goals: Daily pain control. Case reviewed and discussed with Dr. Keith who agrees with plan of care. 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 (1910) [address] [place] [address] [facility] ([id number]) [address] [place] [address] at 1525 RPT #:[id number] END OF REPORT [facility] 2024-11-16 23:11:00 [facility] Tereso/Oncology Progress Note REPORT#:[id number] REPORT STATUS: Signed REPORT INITIALIZATION DATE:11/16/24 TIME: 2310 PATIENT: YUNIER PRATT UNIT #: [id number] ROOM/BED: [place] [id number] : 74 AGE: 54 SEX: F ATTEND: Flynn Becerra MD ADM AUTHOR: Huey Michelle MD REPT SERVICE DT/TIME: 11/16/242310 * ALL edits or amendments must be made on the electronic/computer document * Subjective Chief Complaint: pt doing ok. s/p 2 u prbc Objective Physical Exam VS: Vital Signs Date Temp Pulse Resp B/P B/P Mean Pulse Ox FiO2 11/16 36.5-37.1 69-101 14-22 120-149/60-72 0.0-104 91-100 21 Last Documented: Result Date Time Pulse Ox 95 11/16 2099 O2 Delivery Room air 11/16 2099 B/P 149/70 11/17 1915 B/P Mean 0.0 11/17 1915 Temp 36.5 11/17 1915 Pulse 101 11/17 1915 Resp 20 11/17 1915 FiO2 21 11/16 0743 O2 Flow Rate 0 11/11 1601 HEENT: pupils reactive to light Cardiovascular: regular rate and rhythm, normal S1/S2 Respiratory: symmetric expansion Abdomen: non-tender, soft Extremities: edema, moves all, normal temperature, no edema 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, oriented X 3, no motor deficits Current Medications Medications: Active Meds + DC'd Last 24 Hrs Bisacodyl (DULCOLAX) 10 MG ONCE ONE RECTAL (DC) Lidocaine (Lidocaine 4% Patch) 1 PATCH DAILY TOPICAL Furosemide (LASIX 20MG INJ) 20 MG BID 9A 5P IV (DC) Tizanidine HCl (ZANAFLEX) 4 MG Q8HR PO Hydrocodone Bitart/Acetaminophen (NORCO 7.5/325 TABLET) 2 TAB Q4H PRN PRN PO Hydromorphone HCl (DILAUDID) 0.5 MG Q6H PRN PRN IV Insulin Glargine (Semglee) 20 UNIT BID SUBQ Ipratropium Hazard (ATROVENT) 500 MCG RTQ2H PRN PRN INH Cyanocobalamin (Vitamin B-12 500 mcg tab) 500 MCG DAILY PO Ferrous Sulfate (FERROUS SULFATE) 325 MG DAILY PO Quetiapine Fumarate (SeroqueL) 200 MG BEDTIME PO Gabapentin (NEURONTIN) 1,200 MG TID PO Insulin Human Lispro (Admelog) 0 AC HS SUBQ Nicotine (NICODERM) 7 MG DAILY TRANSDERM (CKD) Amitriptyline HCl (ELAVIL) 25 MG BEDTIME PO Naloxone HCl (NARCAN) 0.4 MG Q2M PRN PRN IV Clopidogrel Bisulfate (Plavix) 75 MG DAILY PO Polyethylene Glycol (MIRALAX) 17 GM DAILY PO Pantoprazole (PROTONIX) 40 MG DAILY@0600 PO Aspirin (ASPIRIN) 81 MG DAILY PO Amiodarone HCl (CORDARONE) 200 MG TID PO Atorvastatin Calcium (LIPITOR) 40 MG 2100 PO Docusate Sodium (COLACE) 100 MG BID PO Metoprolol Tartrate (LOPRESSOR) 12.5 MG Q12HR PO Sennosides (Senna Lax 8.6 MG TABLET) 17.2 MG BEDTIME PO Dextrose/Water (DEXTROSE 10% IN WATER) 125 ML ASDIR PRN IV (CKD) Dextrose/Water (DEXTROSE 10% IN WATER) 250 ML ASDIR PRN IV (CKD) Glucagon (GLUCAGON) 1 MG ASDIR PRN IM Magnesium Sulfate (MAGNESIUM SULFATE 4GM/SWFI 100ML) 100 ML ASDIR PRN IV Magnesium Sulfate (MAGNESIUM SULFATE 2GM/SWFI 50ML) 50 ML ASDIR PRN IV Magnesium Sulfate/Dextrose (MAGNESIUM SULFATE 1GM/D5W 100ML) 100 ML ASDIR PRN IV Ondansetron HCl (ZOFRAN) 4 MG Q6H PRN PRN IV Potassium Chloride (KCL 20MEQ/SWFI 100ML) 100 ML ASDIR PRN IV Fluticasone Propionate (Flonase Nasal Baxter) 2 SPRAY DAILY NASAL (CKD) Results Findings/Data: Laboratory Tests 11/16/24 045: [Embedded Image Not Available] 11/16/24 045: [Embedded Image Not Available] Laboratory Tests 11/16 11/16 11/16 11/16 1624 1145 0755 0457 Chemistry Sodium (134 - 147 mEq/L) 139 Potassium (3.4 - 5.0 mEq/L) 4.6 Chloride (100 - 108 mEq/L) 106 Carbon Dioxide (21 - 33 mEq/l) 30 Anion Gap (0 - 20) 8 BUN (7 - 25 mg/dL) 12 Creatinine (0.6 - 1.3 mg/dL) 0.7 Glomerular Filtr Rate (90 - 95) 104.0 H Glucose (77 - 141 mg/dL) 145 H POC Glucose (70 - 110 MG/DL) 211 H 197 H 139 H Calcium (8.0 - 10.5 mg/dL) 8.7 Magnesium (1.6 - 2.6 mg/dL) 1.98 Laboratory Tests 11/16 457 Hematology WBC (4.5 - 11.0 x10 3/uL) 5.0 RBC (3.54 - 5.02 x10 6/uL) 3.42 L Hgb (11.0 - 15.0 g/dL) 8.6 L Hct (33.0 - 45.0 %) 28.7 L MCV (81.0 - 99.0 fL) 83.9 MCH (27.0 - 33.0 pg) 25.1 L MCHC (33.0 - 37.0 g/dL) 30.0 L RDW (11.5 - 14.5 %) 16.8 H Plt Count (150 - 400 x10 3/uL) 118 L MPV (7.0 - 9.0 fL) 11.9 H Neut % (Auto) (56.0 - 77.0 %) 61.7 Lymph % (Auto) (14.0 - 32.0 %) 22.2 Brule % (Auto) (4.8 - 9.0 %) 11.3 H Eos % (Auto) (0.3 - 3.7 %) 3.8 H Baso % (Auto) (0.0 - 2.0 %) 0.6 Neut # (Auto) (2.0 - 7.6 x10 3/uL) 3.05 Lymph # (Auto) (1.0 - 3.8 x10 3/uL) 1.10 Brule # (Auto) (0.1 - 0.8 x10 3/uL) 0.56 Eos # (Auto) (0.0 - 0.2 x10 3/uL) 0.19 Baso # (Auto) (0.0 - 0.2 x10 3/uL) 0.03 Abs Immat Gran (auto) (0.00 - 0.03 x10 3/uL) 0.02 Immature Gran % (0.0 - 2.0 %) 0.4 Nucleated RBC % (0 - 0 %) 0.0 Nucleated RBCs # (Man) (0.0 - 0.1 x10 3/uL) 0.00 Diagnosis, Assessment Plan Free Text DxA P Notes Free Text DxA P Notes: 1. Thrombocytopenia 2. Positive DECLAN antibody test 3. s/p CABG x5 on 11/09/24 POD #3 4. Anemia post surgery acute on chronic Per MICA ([place] [employer]) guidelines of diagnosis and management of DECLAN This patient has a low clinical probability of DECLAN based on 4Ts scoring - Thrombocytopenia >50% but timing less than 4 days from exposure, and no thrombosis. Other possible causes of thrombocytopenia exist (related to consumption and blood loss post surgery as- HGB dropped as well). she is at 3 point score which is low probability. Laboratory testing DECLAN positive by EISA but RACHELLE is pending which is more specific test. 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 This could be false positive but given positive test until RACHELLE assay is available will consider non heparin anticoagulant argatroban to prevent future thrombosis and ischemia risk. If RACHELLE is negative can dc argatroban. If RACHELLE is positive would transition to DOAC such as eliquis. This patient has a high risk of bleeding as post op state and HGB 6.6. low HIT probability. Hence will also check with [facility] if they feel strongly against starting argatroban weighing risk and benefit will hold off on argatroban but watch closely for any thrombosis, monitor platelet counts and await RACHELLE testing. 11/14 * HGB 9.5 plt 114k s/p 2 u prbc. seems transient thrombocytopenia more likely from consumption. * after d/w [facility] decided against any needs for argatroban unless positive RACHELLE noted. * platelet ct improving * cbc in am 11/16 * HGB 8.6 plt 118k * rachelle still pending * continue asa + plavix * supportive meds at 2313 RPT #:[id number] END OF REPORT [facility] 2024-11-16 10:11:00 [facility]) Cardiothoracic Surgery Prog REPORT#:[id number] REPORT STATUS: Signed REPORT INITIALIZATION DATE:11/16/24 TIME: 101 PATIENT: YUNIER PRATT UNIT #: [id number] ROOM/BED: [place] [id number] : 72 AGE: 54 SEX: F ATTEND: Flynn Becerra MD ADM AUTHOR: Talita Monzon REPT SERVICE DT/TIME: 11/16/24 1011 * ALL edits or amendments must be made on the electronic/computer document * General Post-op: day 7 Status post: 11/09/24 1. Coronary artery bypass graft surgery x5 (ASH to LAD, saphenous vein to diagonal, saphenous vein to first marginal, saphenous vein to second marginal, saphenous vein to PDA). 2. Amputation of left atrial appendage. 3. Endoscopic vein harvest bilateral greater saphenous vein. 4. Posterior pericardiotomy. Subjective Chief complaint: Post op Review of Systems Constitutional: Reports: fatigue, generalized weakness. Denies: chills, fever. Skin: Denies: abrasion. Eyes: Denies: redness. ENT: Denies: ear drainage. Respiratory: Denies: HARTMAN (dyspnea on exertion), hemoptysis, non productive cough, SOB. Cardiovascular: Denies: chest pain, HARTMAN (dyspnea on exertion), edema. GI: Denies: abdominal pain. : Denies: dysuria. Musculoskeletal: Denies: arthritis. All systems rev neg: except as marked Objective General VS/I O Last Documented: Result Date Time Pulse Ox 100 11/16 075 B/P 128/66 11/16 0756 B/P Mean 87.1 11/16 075 Temp 97.9 11/16 075 Pulse 77 11/16 0756 Resp 18 11/16 0756 FiO2 21 11/16 0743 O2 Delivery Room air 11/16 0743 O2 Flow Rate 0 11/11 1601 24 hour I O ending at 0700: 11/16 0700 11/15 1900 Intake Total 700 Output Total 1300 Balance -600 Intake, Oral 700 Number 1 Bowel Movements Output, Urine 1300 Patient 78 kg Weight Weight Standing scale Measurement Method PATIENT WEIGHT: Weight (lb): 171 Weight (oz): 15.37 Weight (kg): 78.000 Dietitian Nutrition assessment The data set between the solid lines has been imported from the dietitian's assessment. BMI Calculated: 26.2 Nutrition related diagnosis: Nutrition diagnosis details: Nutrition problem: Increased nutrient needs Nutrition etiology: Decreased/poor appetite, Decreased intake, Chronic disease Nutrition signs and symptoms: Mild muscle loss, 20% or more weight loss, S/P SURGERY Nutrition prescription: RECOMMEND: 1. RECOMMEND A CCD5 CARDIAC DIET. 2. RECOMMEND GLUCERNA TID WITH MEALS. Dietitian name: Evelin Perez, DIET Assessment completed: 11/10/24 Physical Exam General appearance: alert, awake, oriented Wound/incision: Location: sternum Site condition: incision intact, no changes in wound, no drainage HEENT: mucosal membranes moist, pupils reactive to light Neck: full range of motion, non-tender Cardiovascular: regular rate rhythm Respiratory: symmetric expansion, no distress Abdomen: soft, non-tender Extremities: dry, moves all 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, oriented X 3 Skin: dry, intact Current Medications Medications: Active Meds + DC'd Last 24 Hrs Tizanidine HCl (ZANAFLEX) 4 MG Q8HR PO Hydrocodone Bitart/Acetaminophen (NORCO 7.5/325 TABLET) 2 TAB Q4H PRN PRN PO Hydromorphone HCl (DILAUDID) 0.5 MG Q6H PRN PRN IV Insulin Glargine (Semglee) 20 UNIT BID SUBQ Sodium Chloride (SODIUM CHLORIDE 0.9%) 100 ML ASDIR PRN IV (DC) Ipratropium Hazard (ATROVENT) 500 MCG RTQ2H PRN PRN INH Cyanocobalamin (Vitamin B-12 500 mcg tab) 500 MCG DAILY PO Ferrous Sulfate (FERROUS SULFATE) 325 MG DAILY PO Quetiapine Fumarate (SeroqueL) 200 MG BEDTIME PO Gabapentin (NEURONTIN) 1,200 MG TID PO Insulin Human Lispro (Admelog) 0 AC HS SUBQ Nicotine (NICODERM) 7 MG DAILY TRANSDERM (CKD) Amitriptyline HCl (ELAVIL) 25 MG BEDTIME PO Naloxone HCl (NARCAN) 0.4 MG Q2M PRN PRN IV Clopidogrel Bisulfate (Plavix) 75 MG DAILY PO Polyethylene Glycol (MIRALAX) 17 GM DAILY PO Pantoprazole (PROTONIX) 40 MG DAILY@0600 PO Aspirin (ASPIRIN) 81 MG DAILY PO Amiodarone HCl (CORDARONE) 200 MG TID PO Atorvastatin Calcium (LIPITOR) 40 MG 2100 PO Docusate Sodium (COLACE) 100 MG BID PO Metoprolol Tartrate (LOPRESSOR) 12.5 MG Q12HR PO Sennosides (Senna Lax 8.6 MG TABLET) 17.2 MG BEDTIME PO Dextrose/Water (DEXTROSE 10% IN WATER) 125 ML ASDIR PRN IV (CKD) Dextrose/Water (DEXTROSE 10% IN WATER) 250 ML ASDIR PRN IV (CKD) Glucagon (GLUCAGON) 1 MG ASDIR PRN IM Magnesium Sulfate (MAGNESIUM SULFATE 4GM/SWFI 100ML) 100 ML ASDIR PRN IV Magnesium Sulfate (MAGNESIUM SULFATE 2GM/SWFI 50ML) 50 ML ASDIR PRN IV Magnesium Sulfate/Dextrose (MAGNESIUM SULFATE 1GM/D5W 100ML) 100 ML ASDIR PRN IV Ondansetron HCl (ZOFRAN) 4 MG Q6H PRN PRN IV Potassium Chloride (KCL 20MEQ/SWFI 100ML) 100 ML ASDIR PRN IV Fluticasone Propionate (Flonase Nasal Baxter) 2 SPRAY DAILY NASAL (CKD) Results Findings/Data: Laboratory Tests 11/16 11/16 11/15 11/15 11/15 0755 0457 2105 1633 1113 Chemistry Sodium (134 - 147 mEq/L) 139 Potassium (3.4 - 5.0 mEq/L) 4.6 Chloride (100 - 108 mEq/L) 106 Carbon Dioxide (21 - 33 mEq/l) 30 Anion Gap (0 - 20) 8 BUN (7 - 25 mg/dL) 12 Creatinine (0.6 - 1.3 mg/dL) 0.7 Glomerular Filtr Rate (90 - 95) 104.0 H Glucose (77 - 141 mg/dL) 145 H POC Glucose (70 - 110 MG/DL) 139 H 206 H 256 H 209 H Calcium (8.0 - 10.5 mg/dL) 8.7 Magnesium (1.6 - 2.6 mg/dL) 1.98 Laboratory Tests 11/16 0458 Hematology WBC (4.5 - 11.0 x10 3/uL) 5.0 RBC (3.54 - 5.02 x10 6/uL) 3.42 L Hgb (11.0 - 15.0 g/dL) 8.6 L Hct (33.0 - 45.0 %) 28.7 L MCV (81.0 - 99.0 fL) 83.9 MCH (27.0 - 33.0 pg) 25.1 L MCHC (33.0 - 37.0 g/dL) 30.0 L RDW (11.5 - 14.5 %) 16.8 H Plt Count (150 - 400 x10 3/uL) 118 L MPV (7.0 - 9.0 fL) 11.9 H Neut % (Auto) (56.0 - 77.0 %) 61.7 Lymph % (Auto) (14.0 - 32.0 %) 22.2 Brule % (Auto) (4.8 - 9.0 %) 11.3 H Eos % (Auto) (0.3 - 3.7 %) 3.8 H Baso % (Auto) (0.0 - 2.0 %) 0.6 Neut # (Auto) (2.0 - 7.6 x10 3/uL) 3.05 Lymph # (Auto) (1.0 - 3.8 x10 3/uL) 1.10 Brule # (Auto) (0.1 - 0.8 x10 3/uL) 0.56 Eos # (Auto) (0.0 - 0.2 x10 3/uL) 0.19 Baso # (Auto) (0.0 - 0.2 x10 3/uL) 0.03 Abs Immat Gran (auto) (0.00 - 0.03 x10 3/uL) 0.02 Immature Gran % (0.0 - 2.0 %) 0.4 Nucleated RBC % (0 - 0 %) 0.0 Nucleated RBCs # (Man) (0.0 - 0.1 x10 3/uL) 0.00 Results: labs reviewed, vital signs stable, alfonsom personally rev'd, current med profile rev'd Diagnosis, Assessment Plan Hospital course to date: This is a 54-year-old female with a past medical history of hypertension, diabetes on insulin who presented to [facility] with complaints of chest pain. She was ruled in for NSTEMI on her blood work. 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 Patient was transferred to [facility] for further evaluation and workup of multivessel CAD. Patient denies any alcohol or drug use. He does report half pack a day smoking for the past 40 years. 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 Assessment/plan 1. Hypertension 2. Diabetes on insulin 3. NSTEMI 4. Multivessel CAD Patient seen and examined. Patient will begin workup for consideration for coronary bypass graft surgery. Appropriate preoperative studies will be completed. Echocardiogram pending vein mapping pending Carotid Doppler pending Will obtain pulmonary function test due to patient's history of smoking Further recs to follow based on further clinical workup. 11/09/24 1. Coronary artery bypass graft surgery x5 (ASH to LAD, saphenous vein to diagonal, saphenous vein to first marginal, saphenous vein to second marginal, saphenous vein to PDA). 2. Amputation of left atrial appendage. 3. Endoscopic vein harvest bilateral greater saphenous vein. 4. Posterior pericardiotomy. 11/10/24 POD 1 AAOx3 Patient reports pain, Multimodal pain control Respiratory: 4 L nasal cannula Encourage IS, Deep Breathing, CXR reviewed chest tube drainage 25 and 25 so far this morning after walking. Chest tubes causing marked amount of pain. Will DC chest tubes Cardiac: Sinus rhythm, pacing wires on standby GI: Advance diet as tolerated, monitor glycemic control : Ramirez in place, monitor urine output UO: 765 overnight PT/OT, patient walked the unit Disposition: Patient has good family support DVT prophylaxis, SCDs in place Continue DAPT, metoprolol, Lipitor, amiodarone Labs reveiwed- replace electrolytes as needed Patient seen and examined by Dr. Ross. Plan of care discussed with patient and multidisciplinary team. The patient's questions were answered 11/11/24 POD 2 AAOx3 Patient reports pain, Multimodal pain control, pain management following Respiratory: Room air Encourage IS, Deep Breathing, CXR reviewed, chest tubes removed yesterday. Bilateral pleural effusions. Continue diuresis for now. Patient may need right pigtail placement GI: Advance diet as tolerated, monitor glycemic control : F Ramirez DC'd yesterday. Voiding well PT/OT, patient walked the unit Disposition: Patient has good family support DVT prophylaxis, SCDs in place Continue DAPT, metoprolol, Lipitor, amiodarone Labs reveiwed- replace electrolytes as needed Patient seen and examined by Dr. Ross. Plan of care discussed with patient and multidisciplinary team. The patient's questions were answered Give Lasix 20 IV today. 11/12/24 POD 3 AAOx3 Patient reports pain, Multimodal pain control, pain management following, consider decreasing pain m meds. Respiratory: Room air Encourage IS, Deep Breathing, CXR reviewed, pleural effusion appears to be improving continue diuresing. GI: Tolerating diet, pending BM : Voiding well PT/OT, patient walked the unit Disposition: Patient has good family support DVT prophylaxis, SCDs in place Continue DAPT, metoprolol, Lipitor, amiodarone Labs reveiwed- replace electrolytes as needed Patient seen and examined by Dr. Ross. Plan of care discussed with patient and multidisciplinary team. The patient's questions were answered 20 of Lasix given. Platelets trending down, Will order HIT panel 11/13/24 POD 4 AAOx3 Labs reviewed, replace electrolytes as needed, hgb dropped to 6.6 from 7.8, plts 61 HIT panel positive, pending RACHELLE Patient reports improved pain, Multimodal pain control, pain management following Respiratory: Room air, Encourage IS, Deep Breathing, CXR reviewed, There are diffuse congestive changes bilaterally. No pneumothorax or pleural effusion is identified. NSR, monitoring BP closly, pacing wires on standby GI: Tolerating diet, pending BM, mom suppository today : Voiding well, urine output 400cc overnight, Lasix today PT/OT, patient walked the unit Disposition: Patient has good family support DVT prophylaxis, SCDs in place DVT study ordered, negative DVT to Left leg, ordered updated bilateral Lower extremity Continue DAPT, metoprolol, Lipitor, amiodarone Labs reviewed- replace electrolytes as needed Patient seen and examined by Dr. Ross. Plan of care discussed with patient and multidisciplinary team. The patient's questions were answered. 11/14/24 POD 5 AAOx3 Pending updated labs, replace electrolytes as needed, yesterday hgb dropped to 6.6 from 7.8, plts 61, pending stool occult HIT panel positive, pending RACHELLE Discussed with hematology plan for anticoagulation, will hold off on argatroban but watch closely for any thrombosis, platelet counts and await RACHELLE testing result. Patient reports improved pain, Multimodal pain control, pain management following Respiratory: Room air, Encourage IS, Deep Breathing, CXR reviewed NSR, monitoring BP closly, pacing wires on standby GI: Tolerating diet, pending BM, mom suppository today : Voiding well, weight still up from baseline, continue diuresis PT/OT, patient ambulating around the unit Disposition: Patient has good family support DVT prophylaxis, SCDs in place DVT study negative for DVT to CORNELL LE Continue DAPT, metoprolol, Lipitor, amiodarone Patient seen and examined by Dr. Ross. Plan of care discussed with patient and multidisciplinary team. The patient's questions were answered. 11/16/24 POD 7 AAOx3 Pending updated labs, replace electrolytes as needed, hgb 8.6, plts 118, pending stool occult Patient complaints of left back pain, pain management following HIT panel positive, pending RACHELLE Discussed with hematology plan for anticoagulation, will hold off on argatroban but watch closely for any thrombosis, platelet counts and await RACHELLE testing result. Patient reports improved pain, Multimodal pain control, pain management following Respiratory: Room air, Encourage IS, Deep Breathing, CXR reviewed, small bilateral effusions, will give Lasix 20mg IV BID NSR, monitoring BP closly, pacing wires on standby GI: Tolerating diet, small bowel movement yesterday, continue bowel regimen : Voiding well, weight still up from baseline, continue diuresis PT/OT, patient ambulating around the unit Disposition: Patient has good family support DVT prophylaxis, SCDs in place DVT study negative for DVT to CORNELL LE Continue DAPT, metoprolol, Lipitor, amiodarone Patient seen and examined by Dr. Ross. Plan of care discussed with patient and multidisciplinary team. The patient's questions were answered. Consultants: cardiology, cardiovascular surgery Code status: full code Plan discussed with: patient, collaborating MD, nurse, interdisc care team at 1457 RPT #:[id number] END OF REPORT [facility] 2024-11-16 09:00:00 [facility] Pain Management Progress Note REPORT#:[id number] REPORT STATUS: Signed REPORT INITIALIZATION DATE:11/16/24 TIME: 09 PATIENT: YUNIER PRATT UNIT #: [id number] ROOM/BED: [place] [id number] : 72 AGE: 54 SEX: F ATTEND: Flynn Becerra MD ADM AUTHOR: Alejandro Cabrera NP REPT SERVICE DT/TIME: 11/16/24 0900 * ALL edits or amendments must be made on the electronic/computer document * Subjective Chief complaint: Patient seen and examined. Chart/MAR reviewed Patient has chest pain. Reviewed medications and the need to wean the IV opioids. Will review medications. Patient being seen for chest pain, acute postoperative pain, diabetic polyneuropathy, muscle spasms, constipation/OIC Patient is still requiring medications to help with managing current problems Patient is requiring IV narcotics to help manage breakthrough pain No fever/chills, chest pain, orthopnea, nausea/vomiting, pruritus, or hallucinations. 14-point ROS undertaken and is unremarkable except as noted. Objective General VS/I O: Vital Signs Date Temp Pulse Resp B/P B/P Mean Pulse Ox FiO2 11/15-11/16 97.9-98.8 69-88 14-34 111-145/61-72 0.0-104 93-100 21 Last Documented: Result Date Time Pulse Ox 100 11/16 0756 B/P 128/66 11/16 0756 B/P Mean 87.1 11/16 0756 Temp 97.9 11/16 0756 Pulse 77 11/16 0756 Resp 18 11/16 0756 FiO2 21 11/16 0743 O2 Delivery Room air 11/16 0743 O2 Flow Rate 0 11/11 1601 24 hour I O ending at 0700: 11/16 0700 11/15 1900 Intake Total 700 Output Total 1300 Balance -600 Intake, Oral 700 Number 1 Bowel Movements Output, Urine 1300 Patient 78 kg Weight Weight Standing scale Measurement Method PATIENT WEIGHT: Weight (lb): 171 Weight (oz): 15.37 Weight (kg): 78.000 Medications: Active Meds + DC'd Last 24 Hrs Tizanidine HCl (ZANAFLEX) 4 MG Q8HR PO Hydrocodone Bitart/Acetaminophen (NORCO 7.5/325 TABLET) 2 TAB Q4H PRN PRN PO Hydromorphone HCl (DILAUDID) 0.5 MG Q6H PRN PRN IV Insulin Glargine (Semglee) 20 UNIT BID SUBQ Sodium Chloride (SODIUM CHLORIDE 0.9%) 100 ML ASDIR PRN IV (DC) Methylnaltrexone Hazard (RELISTOR 12MG VIAL) 12 MG DAILY SUBQ (DC) Ipratropium Hazard (ATROVENT) 500 MCG RTQ2H PRN PRN INH Cyanocobalamin (Vitamin B-12 500 mcg tab) 500 MCG DAILY PO Ferrous Sulfate (FERROUS SULFATE) 325 MG DAILY PO Quetiapine Fumarate (SeroqueL) 200 MG BEDTIME PO Gabapentin (NEURONTIN) 1,200 MG TID PO Insulin Human Lispro (Admelog) 0 AC HS SUBQ Nicotine (NICODERM) 7 MG DAILY TRANSDERM (CKD) Amitriptyline HCl (ELAVIL) 25 MG BEDTIME PO Naloxone HCl (NARCAN) 0.4 MG Q2M PRN PRN IV Clopidogrel Bisulfate (Plavix) 75 MG DAILY PO Polyethylene Glycol (MIRALAX) 17 GM DAILY PO Pantoprazole (PROTONIX) 40 MG DAILY@0600 PO Aspirin (ASPIRIN) 81 MG DAILY PO Amiodarone HCl (CORDARONE) 200 MG TID PO Atorvastatin Calcium (LIPITOR) 40 MG 2100 PO Docusate Sodium (COLACE) 100 MG BID PO Metoprolol Tartrate (LOPRESSOR) 12.5 MG Q12HR PO Sennosides (Senna Lax 8.6 MG TABLET) 17.2 MG BEDTIME PO Dextrose/Water (DEXTROSE 10% IN WATER) 125 ML ASDIR PRN IV (CKD) Dextrose/Water (DEXTROSE 10% IN WATER) 250 ML ASDIR PRN IV (CKD) Glucagon (GLUCAGON) 1 MG ASDIR PRN IM Magnesium Sulfate (MAGNESIUM SULFATE 4GM/SWFI 100ML) 100 ML ASDIR PRN IV Magnesium Sulfate (MAGNESIUM SULFATE 2GM/SWFI 50ML) 50 ML ASDIR PRN IV Magnesium Sulfate/Dextrose (MAGNESIUM SULFATE 1GM/D5W 100ML) 100 ML ASDIR PRN IV Ondansetron HCl (ZOFRAN) 4 MG Q6H PRN PRN IV Potassium Chloride (KCL 20MEQ/SWFI 100ML) 100 ML ASDIR PRN IV Fluticasone Propionate (Flonase Nasal Baxter) 2 SPRAY DAILY NASAL (CKD) Physical Exam General appearance: alert, awake Head/eyes: atraumatic, EOMI, normocephalic, PERRLA ENT: normal nose Neck: no JVD, supple/no meningismus Cardiovascular: regular rate rhythm, normal heart sounds, dressing over sternum Respiratory: clear to auscultation, aerating well, symmetric expansion Abdomen: soft, non-tender, no distention Extremities: moves all, no edema, no clubbing, no cyanosis 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, oriented X 3, normal speech, CNII-XII grossly intact Skin: dry, normal turgor, warm Psychiatry: normal affect, normal mood Results Findings/data: Laboratory Tests: 11/16 11/16 11/16 11/15 7985 5147 6068 7050 Chemistry Sodium (134 - 147 mEq/L) 139 Potassium (3.4 - 5.0 mEq/L) 4.6 Chloride (100 - 108 mEq/L) 106 Carbon Dioxide (21 - 33 mEq/l) 30 Anion Gap (0 - 20) 8 BUN (7 - 25 mg/dL) 12 Creatinine (0.6 - 1.3 mg/dL) 0.7 Glomerular Filtr Rate (90 - 95) 104.0 H Glucose (77 - 141 mg/dL) 145 H POC Glucose (70 - 110 MG/DL) 139 H 206 H Calcium (8.0 - 10.5 mg/dL) 8.7 Magnesium (1.6 - 2.6 mg/dL) 1.98 Hematology WBC (4.5 - 11.0 x10 3/uL) 5.0 RBC (3.54 - 5.02 x10 6/uL) 3.42 L Hgb (11.0 - 15.0 g/dL) 8.6 L Hct (33.0 - 45.0 %) 28.7 L MCV (81.0 - 99.0 fL) 83.9 MCH (27.0 - 33.0 pg) 25.1 L MCHC (33.0 - 37.0 g/dL) 30.0 L RDW (11.5 - 14.5 %) 16.8 H Plt Count (150 - 400 x10 3/uL) 118 L MPV (7.0 - 9.0 fL) 11.9 H Neut % (Auto) (56.0 - 77.0 %) 61.7 Lymph % (Auto) (14.0 - 32.0 %) 22.2 Brule % (Auto) (4.8 - 9.0 %) 11.3 H Eos % (Auto) (0.3 - 3.7 %) 3.8 H Baso % (Auto) (0.0 - 2.0 %) 0.6 Neut # (Auto) (2.0 - 7.6 x10 3/uL) 3.05 Lymph # (Auto) (1.0 - 3.8 x10 3/uL) 1.10 Brule # (Auto) (0.1 - 0.8 x10 3/uL) 0.56 Eos # (Auto) (0.0 - 0.2 x10 3/uL) 0.19 Baso # (Auto) (0.0 - 0.2 x10 3/uL) 0.03 Abs Immat Gran (auto) (0.00 - 0.03 0.02 x10 3/uL) Immature Gran % (0.0 - 2.0 %) 0.4 Nucleated RBC % (0 - 0 %) 0.0 Nucleated RBCs # (Man) (0.0 - 0.1 x10 3/uL) 0.00 11/15 11/15 1633 1113 Chemistry POC Glucose (70 - 110 MG/DL) 256 H 209 H Recent Impressions: RADIOLOGY - XR CHEST 1 V 11/15 0953 Report Impression - Status: SIGNED Entered: 11/15/2024 1055 IMPRESSION: Features of congestive heart failure with small bilateral pleural effusions, similar to priors. Impression By: Jj Wynne M.D. Diagnosis, Assessment Plan Free text A P: Patient is a 54 year old female who presents with the following: Chest pain, acute postoperative pain -S/P CABG on 11/09/24 -DC oxycodone 10mg q6h PRN -DC Dilaudid 4mg PO q4h PRN, pain scale 4-10 (11/15) -DC Acetaminophen 1000mg q6h (11/15) -Lidocaine patch to chest wall daily 12h on 12h off (11/16) -[place] 7.5/325 mg 2 tabs PO q4h PRN pain scale 4-10 (11/15) -Dilaudid 0.5 mg IV q6h PRN, pain scale 7-10, second line (11/11, decr dose/freq 11/15) -stable Diabetic polyneuropathy -Amitriptyline 25mg at bedtime -Gabapentin 1200mg TID (11/11) -stable Muscle spams -DC Robaxin 500mg PO TID -DC Methocarbamol 1000mg IV q8h x 3 doses (11/14) -Tizanidine 4 mg PO q8h (11/15) -stable Insomnia -Takes seroquel 200mg QHS at home Constipation/OIC -Docusate 100mg BID -Miralax 17gm daily -Senna 17.2 mg at bedtime -Relistor 12 mg subq daily x 3 days (11/13) -Adjustment made Disposition: Rx: [facility]: [facility] Past medical history: DM, HTN, CAD Past surgical history: CABG, ALAA, PP, EVH Family history: Noncontributory Social history: denies drugs, alcohol, smoking Allergies: NKDA All pertinent diagnostics/labs from the last 24 hours and during the course of the admission were reviewed. Plan discussed with the patient and the nurse. All questions were answered. Patient will be monitored for deleterious side effects associated with opioids and sedative medications. Medications will be adjusted further clinical course. Risks versus benefits of opioid medications were reviewed to include, but not limited to respiratory depression, accidental overdose, altered mental status, sudden , constipation which could result in bowel obstruction, seizures, withdrawal, dependency/addiction, risk for falls. Goals: Daily pain control. Case reviewed and discussed with Dr. Keith who agrees with plan of care. [place] [employer] records reviewed: Total Prescriptions 6 Total Private Pay 0 Total Prescribers 4 Total Pharmacies 2 2024 2024 1 HYDROCODONE-ACETAMIN 5-325 MG 20.00 3 Pa o [id number] [facility] (1910) 0 33.33 M[place] Comm Ins [place] 2024 2024 1 TRAMADOL-ACETAMINOPHN 37.5-325 20.00 3 Pa Tho [id number] [facility] (1385) 0 50.00 M[place] Comm Ins [place] 06/08/2023 06/08/2023 1 ACETAMINOPHEN-COD #3 TABLET 10.00 10 Ma Gopi 601446 [facility] ( 5115) 0 4.50 M[place] Comm Ins [place] [facility] (1910) [address] [place] [address] [facility] (3584) [address] [place] [address] at 6181 RPT #:[id number] END OF REPORT [facility] 2024-11-16 08:03:00 [facility] ([facility]) Hospitalist Progress Note REPORT#:[id number] REPORT STATUS: Signed REPORT INITIALIZATION DATE:11/16/24 TIME: 802 PATIENT: YUNIER PRATT UNIT #: [id number] ROOM/BED: [place] [id number] : 72 AGE: 54 SEX: F ATTEND: Flynn Becerra MD ADM AUTHOR: Dayanara Man MD R1 REPT SERVICE DT/TIME: 11/16/24 0803 * ALL edits or amendments must be made on the electronic/computer document * Dayanara Man 11/16/24 0803: Subjective Chief complaint: Pending RACHELLE and stool occult Objective Physical Exam Head/Eyes: atraumatic, normocephalic ENT: moist mucosal membranes, normal dentition Neck: full range of motion, supple/no meningismus Cardiovascular: normal heart sounds, regular rate rhythm, no murmur Respiratory: aerating well, clear to auscultation, symmetric expansion, no distress Abdomen: non-tender, soft, no distention, no guarding, no rebound Extremities: moves all, no edema 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, oriented X 3, CNII-XII intact, no motor deficits, no sensory deficits Skin: dry, intact, no rash Psychiatry: normal affect, normal mood Diagnosis, Assessment Plan Hospital course to date: 11/10- POD #1 CABG. c/o post op pain. d/w CV surgery team and pain management consulted 11/11- POD #2 CABG. pain is much better controlled. possibly transfer out of CCU today. chest tubes out yesterday.lasix x1 today 11/12: POD #3. Hyperglycemia improved after adding Lantus 15 BID. 11/13: Hb 6.6 today. 2 units RBC transfused. HIT panel postive, Heme Onc consulted and RACHELLE panel sent. CXR shows diffsue congestive changes. Venous doppler negative. 11/15-11/16: Fecal occult blood and RACHELLE pending Consultants: cardiology, cardiovascular surgery Free Text DxA P Notes Free text DxA P notes: 54 yo F w PMHx of HTN, DM presented for evaluation of SOB and chest pain at [facility]. Patient was found to have NSTEMI. 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 Patient was transported to [facility] for CABG evaluation. Assessment and Plan Heparin Induced Thrombocytopenia -As per Hematology and CTS anticoagulation, will hold off on argatroban but watch closely for any thrombosis, platelet counts and await RACHELLE testing result. 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 FEV1 is 60% of predicted. Ratio is normal. History of Diabetes Mellitus Type-2, Uncontrolled - HGB A1c 8.0 - Blood sugar monitoring - Lantus 20 BID - Insulin SS History of Diabetic Neuropathy - Continue Gabapentin 1,200MG PO TID (verified) - Continue home Cymbalta History of Anxiety - Continue Seroquel 200MG PO bedtime Diet: Regular DVT ppx: Heparin gtt Pepcid FULL CODE Dispo: FOBT and RACHELLE trending. Keep trending Hb Flynn Becerra 11/16/24 2246: Attestations Teaching Physician Attestation F/U visit w/o resident: I personally saw the patient and reviewed the resident's note. I agree with the resident's findings and plan. at 1733 at 2242 RPT #:[id number] END OF REPORT [facility] 2024-11-15 09:12:00 [facility] ([facility]) Pain Management Progress Note REPORT#:[id number] REPORT STATUS: Signed REPORT INITIALIZATION DATE:11/15/24 TIME: 911 PATIENT: YUNIER PRATT UNIT #: [id number] ROOM/BED: 3360-1 : 72 AGE: 54 SEX: F ATTEND: Leyda Trotter MD ADM AUTHOR: Hatmaker,Alejandro C JOB COACH/JOB DEVELOPER REPT SERVICE DT/TIME: 11/15/24 0912 * ALL edits or amendments must be made on the electronic/computer document * Subjective Chief complaint: Patient seen and examined. Chart/MAR reviewed Patient continues to hurt. I discussed starting to wean the IV dilaudid. Will start this today. Patient being seen for chest pain, acute postoperative pain, diabetic polyneuropathy, muscle spasms, constipation/OIC Patient is still requiring medications to help with managing current problems Patient is requiring IV narcotics to help manage breakthrough pain No fever/chills, chest pain, orthopnea, nausea/vomiting, pruritus, or hallucinations. 14-point ROS undertaken and is unremarkable except as noted. Objective General VS/I O: Vital Signs Date Temp Pulse Resp B/P B/P Mean Pulse Ox FiO2 11/14-11/15 98.4-99.5 76-88 12-20 116-159/60-84 0.0-82.4 94-100 Last Documented: Result Date Time Pulse Ox 96 11/15 0757 B/P 116/66 11/15 0757 B/P Mean 82.4 11/15 0757 Temp 98.6 11/15 0757 Pulse 81 11/15 0757 Resp 18 11/15 0757 O2 Delivery Room air 11/15 0755 FiO2 21 11/13 1053 O2 Flow Rate 0 11/11 1601 24 hour I O ending at 0700: 11/15 0700 11/14 1900 Intake Total 500 1500 Output Total 900 1600 Balance -400 -100 Intake, Oral 500 1500 Output, Urine 900 1600 Patient 77.6 kg Weight Weight Standing scale Measurement Method PATIENT WEIGHT: Weight (lb): 171 Weight (oz): 1.26 Weight (kg): 77.600 Medications: Active Meds + DC'd Last 24 Hrs Tizanidine HCl (ZANAFLEX) 4 MG Q8HR PO (UNV) Hydrocodone Bitart/Acetaminophen (NORCO 7.5/325 TABLET) 2 TAB Q4H PRN PRN PO (UNV) Hydromorphone HCl (DILAUDID) 0.5 MG Q6H PRN PRN IV (UNVr) Methocarbamol (ROBAXIN) 1,000 MG Q8HR IV (DC) Furosemide (LASIX 40 mg/4 mL INJECTION) 40 MG ONCE ONE IV (DC) Insulin Glargine (Semglee) 20 UNIT BID SUBQ Sodium Chloride (SODIUM CHLORIDE 0.9%) 100 ML ASDIR PRN IV Methylnaltrexone Hazard (RELISTOR 12MG VIAL) 12 MG DAILY SUBQ (DC) Ipratropium Hazard (ATROVENT) 500 MCG RTQ2H PRN PRN INH Cyanocobalamin (Vitamin B-12 500 mcg tab) 500 MCG DAILY PO Ferrous Sulfate (FERROUS SULFATE) 325 MG DAILY PO Quetiapine Fumarate (SeroqueL) 200 MG BEDTIME PO Gabapentin (NEURONTIN) 1,200 MG TID PO Insulin Human Lispro (Admelog) 0 AC HS SUBQ Hydromorphone HCl (DILAUDID) 1 MG Q4H PRN PRN IV (DCr) Nicotine (NICODERM) 7 MG DAILY TRANSDERM (CKD) Amitriptyline HCl (ELAVIL) 25 MG BEDTIME PO Naloxone HCl (NARCAN) 0.4 MG Q2M PRN PRN IV Acetaminophen (TYLENOL EXTRA STRENGTH) 1,000 MG Q6H PO (DCr) Hydromorphone HCl (DILAUDID) 4 MG Q4H PRN PRN PO (DCr) Clopidogrel Bisulfate (Plavix) 75 MG DAILY PO Polyethylene Glycol (MIRALAX) 17 GM DAILY PO Pantoprazole (PROTONIX) 40 MG DAILY@0600 PO Aspirin (ASPIRIN) 81 MG DAILY PO Amiodarone HCl (CORDARONE) 200 MG TID PO Atorvastatin Calcium (LIPITOR) 40 MG 2100 PO Docusate Sodium (COLACE) 100 MG BID PO Metoprolol Tartrate (LOPRESSOR) 12.5 MG Q12HR PO Sennosides (Senna Lax 8.6 MG TABLET) 17.2 MG BEDTIME PO Acetaminophen (TYLENOL) 650 MG Q4H PRN PRN RECTAL (DCr) Dextrose/Water (DEXTROSE 10% IN WATER) 125 ML ASDIR PRN IV (CKD) Dextrose/Water (DEXTROSE 10% IN WATER) 250 ML ASDIR PRN IV (CKD) Glucagon (GLUCAGON) 1 MG ASDIR PRN IM Magnesium Sulfate (MAGNESIUM SULFATE 4GM/SWFI 100ML) 100 ML ASDIR PRN IV Magnesium Sulfate (MAGNESIUM SULFATE 2GM/SWFI 50ML) 50 ML ASDIR PRN IV Magnesium Sulfate/Dextrose (MAGNESIUM SULFATE 1GM/D5W 100ML) 100 ML ASDIR PRN IV Ondansetron HCl (ZOFRAN) 4 MG Q6H PRN PRN IV Potassium Chloride (KCL 20MEQ/SWFI 100ML) 100 ML ASDIR PRN IV Fluticasone Propionate (Flonase Nasal Baxter) 2 SPRAY DAILY NASAL (CKD) Physical Exam General appearance: alert, awake Head/eyes: atraumatic, EOMI, normocephalic, PERRLA ENT: normal ear right, normal nose Neck: no JVD, supple/no meningismus Cardiovascular: regular rate rhythm, normal heart sounds, dressing over sternum Respiratory: clear to auscultation, aerating well, symmetric expansion Abdomen: soft, non-tender, no distention Extremities: moves all, no edema, no clubbing, no cyanosis 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, oriented X 3, normal speech, CNII-XII grossly intact Skin: dry, normal turgor, warm Psychiatry: normal affect Results Findings/data: Laboratory Tests: 11/15 11/14 11/14 11/14 0500 2059 1734 1235 Chemistry Sodium (134 - 147 mEq/L) 139 Potassium (3.4 - 5.0 mEq/L) 4.2 Chloride (100 - 108 mEq/L) 104 Carbon Dioxide (21 - 33 mEq/l) 28 Anion Gap (0 - 20) 11 BUN (7 - 25 mg/dL) 12 Creatinine (0.6 - 1.3 mg/dL) 0.7 Glomerular Filtr Rate (90 - 95) 104.0 H Glucose (77 - 141 mg/dL) 229 H POC Glucose (70 - 110 MG/DL) 143 H 82 295 H Calcium (8.0 - 10.5 mg/dL) 8.6 Magnesium (1.6 - 2.6 mg/dL) 2.03 Hematology WBC (4.5 - 11.0 x10 3/uL) 4.7 RBC (3.54 - 5.02 x10 6/uL) 3.39 L Hgb (11.0 - 15.0 g/dL) 8.6 L Hct (33.0 - 45.0 %) 28.3 L MCV (81.0 - 99.0 fL) 83.5 MCH (27.0 - 33.0 pg) 25.4 L MCHC (33.0 - 37.0 g/dL) 30.4 L RDW (11.5 - 14.5 %) 16.7 H Plt Count (150 - 400 x10 3/uL) 103 L MPV (7.0 - 9.0 fL) 12.1 H Neut % (Auto) (56.0 - 77.0 %) 65.3 Lymph % (Auto) (14.0 - 32.0 %) 17.8 Brule % (Auto) (4.8 - 9.0 %) 11.6 H Eos % (Auto) (0.3 - 3.7 %) 4.3 H Baso % (Auto) (0.0 - 2.0 %) 0.6 Neut # (Auto) (2.0 - 7.6 x10 3/uL) 3.05 Lymph # (Auto) (1.0 - 3.8 x10 3/uL) 0.83 L Brule # (Auto) (0.1 - 0.8 x10 3/uL) 0.54 Eos # (Auto) (0.0 - 0.2 x10 3/uL) 0.20 Baso # (Auto) (0.0 - 0.2 x10 3/uL) 0.03 Abs Immat Gran (auto) (0.00 - 0.03 x10 3/uL) 0.02 Immature Gran % (0.0 - 2.0 %) 0.4 Nucleated RBC % (0 - 0 %) 0.0 Nucleated RBCs # (Man) (0.0 - 0.1 x10 3/uL) 0.00 11/14 0949 Chemistry Sodium (134 - 147 mEq/L) 137 Potassium (3.4 - 5.0 mEq/L) 3.8 Chloride (100 - 108 mEq/L) 104 Carbon Dioxide (21 - 33 mEq/l) 27 Anion Gap (0 - 20) 10 BUN (7 - 25 mg/dL) 11 Creatinine (0.6 - 1.3 mg/dL) 0.7 Glomerular Filtr Rate (90 - 95) 104.0 H Glucose (77 - 141 mg/dL) 260 H Calcium (8.0 - 10.5 mg/dL) 8.7 Magnesium (1.6 - 2.6 mg/dL) 1.99 Hematology WBC (4.5 - 11.0 x10 3/uL) 5.3 RBC (3.54 - 5.02 x10 6/uL) 3.69 Hgb (11.0 - 15.0 g/dL) 9.5 L Hct (33.0 - 45.0 %) 30.6 L MCV (81.0 - 99.0 fL) 82.9 MCH (27.0 - 33.0 pg) 25.7 L MCHC (33.0 - 37.0 g/dL) 31.0 L RDW (11.5 - 14.5 %) 16.4 H Plt Count (150 - 400 x10 3/uL) 114 L MPV (7.0 - 9.0 fL) 13.4 H Neut % (Auto) (56.0 - 77.0 %) 69.0 Lymph % (Auto) (14.0 - 32.0 %) 17.9 Brule % (Auto) (4.8 - 9.0 %) 8.3 Eos % (Auto) (0.3 - 3.7 %) 4.0 H Baso % (Auto) (0.0 - 2.0 %) 0.4 Neut # (Auto) (2.0 - 7.6 x10 3/uL) 3.67 Lymph # (Auto) (1.0 - 3.8 x10 3/uL) 0.95 L Brule # (Auto) (0.1 - 0.8 x10 3/uL) 0.44 Eos # (Auto) (0.0 - 0.2 x10 3/uL) 0.21 H Baso # (Auto) (0.0 - 0.2 x10 3/uL) 0.02 Abs Immat Gran (auto) (0.00 - 0.03 x10 3/uL) 0.02 Immature Gran % (0.0 - 2.0 %) 0.4 Nucleated RBC % (0 - 0 %) 0.0 Nucleated RBCs # (Man) (0.0 - 0.1 x10 3/uL) 0.00 Diagnosis, Assessment Plan Free text A P: Patient is a 54 year old female who presents with the following: Chest pain, acute postoperative pain -S/P CABG on 11/09/24 -DC oxycodone 10mg q6h PRN -DC Dilaudid 4mg PO q4h PRN, pain scale 4-10 (11/15) -DC Acetaminophen 1000mg q6h (11/15) -[place] 7.5/325 mg 2 tabs PO q4h PRN pain scale 4-10 (11/15) -Dilaudid 0.5 mg IV q6h PRN, pain scale 7-10, second line (11/11, decr dose/freq 11/15) -stable Diabetic polyneuropathy -Amitriptyline 25mg at bedtime -Gabapentin 1200mg TID (11/11) -stable Muscle spams -DC Robaxin 500mg PO TID -DC Methocarbamol 1000mg IV q8h x 3 doses (11/14) -Tizanidine 4 mg PO q8h (11/15) -stable Insomnia -Takes seroquel 200mg QHS at home Constipation/OIC -Docusate 100mg BID -Miralax 17gm daily -Senna 17.2 mg at bedtime -Relistor 12 mg subq daily x 3 days (11/13) -Adjustment made Disposition: Rx: Pharmacy: [facility] Past medical history: DM, HTN, CAD Past surgical history: CABG, ALAA, PP, EVH Family history: Noncontributory Social history: denies drugs, alcohol, smoking Allergies: NKDA All pertinent diagnostics/labs from the last 24 hours and during the course of the admission were reviewed. Plan discussed with the patient and the nurse. All questions were answered. Patient will be monitored for deleterious side effects associated with opioids and sedative medications. Medications will be adjusted further clinical course. Risks versus benefits of opioid medications were reviewed to include, but not limited to respiratory depression, accidental overdose, altered mental status, sudden , constipation which could result in bowel obstruction, seizures, withdrawal, dependency/addiction, risk for falls. Goals: Daily pain control. Case reviewed and discussed with Dr. Keith who agrees with plan of care. [place] [employer] records reviewed: Total Prescriptions 6 Total Private Pay 0 Total Prescribers 4 Total Pharmacies 2 2024 2024 1 HYDROCODONE-ACETAMIN 5-325 MG 20.00 3 Pa o [id number] [facility] (191) 0 33.33 MME Comm Ins [place] 2024 2024 1 TRAMADOL-ACETAMINOPHN 37.5-325 20.00 3 Pa Tho [id number] [facility] (4496) 0 50.00 MME Comm Ins [place] 06/08/2023 06/08/2023 1 ACETAMINOPHEN-COD #3 TABLET 10.00 10 Ma Gopi 431004 [facility] ( 8808) 0 4.50 M[place] Comm Ins [place] [facility] (1911) [address] [place] [address] [facility] (8528) [address] [place] [address] at 1251 RPT #:[id number] END OF REPORT [facility] 2024-11-15 08:10:00 [facility] ([facility] Cardiology Progress Note REPORT#:[id number] REPORT STATUS: Signed REPORT INITIALIZATION DATE:11/15/24 TIME: 809 PATIENT: YUNIER PRATT UNIT #: [id number] ROOM/BED: [place] [id number] : 72 AGE: 54 SEX: F ATTEND: Leyda Trotter MD ADM AUTHOR: Fay Fernandez REPT SERVICE DT/TIME: 11/15/24 0810 * ALL edits or amendments must be made on the electronic/computer document * Subjective Patient reports: Yes: shortness of breath. Objective General VS/I O: 24 hour I O ending at 0700: 11/15 0700 11/14 1900 Intake Total 500 1500 Output Total 900 1600 Balance -400 -100 Intake, Oral 500 1500 Output, Urine 900 1600 Patient 77.6 kg Weight Weight Standing scale Measurement Method Vital Signs: Date Time Temp Pulse Resp B/P B/P Pulse O2 O2 Flow FiO2 Mean Ox Delivery Rate 11/15 0757 37.0 81 18 116/66 82.4 96 11/15 0514 36.9 78 14 133/73 0.0 100 Room air 11/15 0031 37.4 76 12 131/60 0.0 96 Room air 11/14 1902 37.4 85 14 159/73 0.0 96 Room air 11/14 1738 37.5 88 20 148/71 0.0 94 Room air 11/14 1239 37.2 80 20 151/84 0.0 98 Room air 11/14 0849 99 Room air 11/14 0815 37.2 84 24 132/70 0.0 95 Room air PATIENT WEIGHT: Weight (lb): 171 Weight (oz): 1.26 Weight (kg): 77.600 Medications: Active Meds + DC'd Last 24 Hrs Methocarbamol (ROBAXIN) 1,000 MG Q8HR IV (DC) Furosemide (LASIX 40 mg/4 mL INJECTION) 40 MG ONCE ONE IV (DC) Insulin Glargine (Semglee) 20 UNIT BID SUBQ Sodium Chloride (SODIUM CHLORIDE 0.9%) 100 ML ASDIR PRN IV Methylnaltrexone Hazard (RELISTOR 12MG VIAL) 12 MG DAILY SUBQ (CKD) Ipratropium Hazard (ATROVENT) 500 MCG RTQ2H PRN PRN INH Cyanocobalamin (Vitamin B-12 500 mcg tab) 500 MCG DAILY PO Ferrous Sulfate (FERROUS SULFATE) 325 MG DAILY PO Quetiapine Fumarate (SeroqueL) 200 MG BEDTIME PO Gabapentin (NEURONTIN) 1,200 MG TID PO Insulin Human Lispro (Admelog) 0 AC HS SUBQ Hydromorphone HCl (DILAUDID) 1 MG Q4H PRN PRN IV Nicotine (NICODERM) 7 MG DAILY TRANSDERM (CKD) Amitriptyline HCl (ELAVIL) 25 MG BEDTIME PO Naloxone HCl (NARCAN) 0.4 MG Q2M PRN PRN IV Acetaminophen (TYLENOL EXTRA STRENGTH) 1,000 MG Q6H PO Hydromorphone HCl (DILAUDID) 4 MG Q4H PRN PRN PO Clopidogrel Bisulfate (Plavix) 75 MG DAILY PO Polyethylene Glycol (MIRALAX) 17 GM DAILY PO Pantoprazole (PROTONIX) 40 MG DAILY@0600 PO Aspirin (ASPIRIN) 81 MG DAILY PO Amiodarone HCl (CORDARONE) 200 MG TID PO Atorvastatin Calcium (LIPITOR) 40 MG 2100 PO Docusate Sodium (COLACE) 100 MG BID PO Metoprolol Tartrate (LOPRESSOR) 12.5 MG Q12HR PO Mupirocin (BACTROBAN 2% 22 GM OINTMENT) 1 APPLIC BID NASAL (DC) Sennosides (Senna Lax 8.6 MG TABLET) 17.2 MG BEDTIME PO Acetaminophen (TYLENOL) 650 MG Q4H PRN PRN RECTAL Dextrose/Water (DEXTROSE 10% IN WATER) 125 ML ASDIR PRN IV (CKD) Dextrose/Water (DEXTROSE 10% IN WATER) 250 ML ASDIR PRN IV (CKD) Glucagon (GLUCAGON) 1 MG ASDIR PRN IM Magnesium Sulfate (MAGNESIUM SULFATE 4GM/SWFI 100ML) 100 ML ASDIR PRN IV Magnesium Sulfate (MAGNESIUM SULFATE 2GM/SWFI 50ML) 50 ML ASDIR PRN IV Magnesium Sulfate/Dextrose (MAGNESIUM SULFATE 1GM/D5W 100ML) 100 ML ASDIR PRN IV Ondansetron HCl (ZOFRAN) 4 MG Q6H PRN PRN IV Potassium Chloride (KCL 20MEQ/SWFI 100ML) 100 ML ASDIR PRN IV Fluticasone Propionate (Flonase Nasal Baxter) 2 SPRAY DAILY NASAL (CKD) Physical Exam General appearance: alert, awake, oriented Neck: non-tender, no JVD Cardiovascular: CV assessment: regular rate and rhythm Respiratory: decreased breath sounds, shortness of breath, mild SOB Abdomen: soft, non-tender, normal bowel sounds, no distention Genitourinary: no flank pain, no urinary catheter Lower extremity: LE assessment: no edema Musculoskeletal: normal inspection 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, oriented X 3, normal speech Skin: dry, intact, normal color Psychiatry: normal affect, normal judgment/insight, normal mood Results Findings/Data: Laboratory Tests 11/15 11/14 11/14 11/14 11/14 0500 2059 1734 1235 0949 Chemistry Sodium (134 - 147 mEq/L) 139 137 Potassium (3.4 - 5.0 mEq/L) 4.2 3.8 Chloride (100 - 108 mEq/L) 104 104 Carbon Dioxide (21 - 33 mEq/l) 28 27 Anion Gap (0 - 20) 11 10 BUN (7 - 25 mg/dL) 12 11 Creatinine (0.6 - 1.3 mg/dL) 0.7 0.7 Glomerular Filtr Rate (90 - 95) 104.0 H 104.0 H Glucose (77 - 141 mg/dL) 229 H 260 H POC Glucose (70 - 110 MG/DL) 143 H 82 295 H Calcium (8.0 - 10.5 mg/dL) 8.6 8.7 Magnesium (1.6 - 2.6 mg/dL) 2.03 1.99 Laboratory Tests 11/15 11/14 0500 0949 Hematology WBC (4.5 - 11.0 x10 3/uL) 4.7 5.3 RBC (3.54 - 5.02 x10 6/uL) 3.39 L 3.69 Hgb (11.0 - 15.0 g/dL) 8.6 L 9.5 L Hct (33.0 - 45.0 %) 28.3 L 30.6 L MCV (81.0 - 99.0 fL) 83.5 82.9 MCH (27.0 - 33.0 pg) 25.4 L 25.7 L MCHC (33.0 - 37.0 g/dL) 30.4 L 31.0 L RDW (11.5 - 14.5 %) 16.7 H 16.4 H Plt Count (150 - 400 x10 3/uL) 103 L 114 L MPV (7.0 - 9.0 fL) 12.1 H 13.4 H Neut % (Auto) (56.0 - 77.0 %) 65.3 69.0 Lymph % (Auto) (14.0 - 32.0 %) 17.8 17.9 Brule % (Auto) (4.8 - 9.0 %) 11.6 H 8.3 Eos % (Auto) (0.3 - 3.7 %) 4.3 H 4.0 H Baso % (Auto) (0.0 - 2.0 %) 0.6 0.4 Neut # (Auto) (2.0 - 7.6 x10 3/uL) 3.05 3.67 Lymph # (Auto) (1.0 - 3.8 x10 3/uL) 0.83 L 0.95 L Brule # (Auto) (0.1 - 0.8 x10 3/uL) 0.54 0.44 Eos # (Auto) (0.0 - 0.2 x10 3/uL) 0.20 0.21 H Baso # (Auto) (0.0 - 0.2 x10 3/uL) 0.03 0.02 Abs Immat Gran (auto) (0.00 - 0.03 x10 3/uL) 0.02 0.02 Immature Gran % (0.0 - 2.0 %) 0.4 0.4 Nucleated RBC % (0 - 0 %) 0.0 0.0 Nucleated RBCs # (Man) (0.0 - 0.1 x10 3/uL) 0.00 0.00 Laboratory Tests 11/15 11/14 0500 0949 Chemistry Magnesium (1.6 - 2.6 mg/dL) 2.03 1.99 Radiology data: Recent Impressions: RADIOLOGY - XR CHEST 1 V 11/14 0828 Report Impression - Status: SIGNED Entered: 11/14/2024 1103 IMPRESSION: Features of congestive heart failure with small left pleural effusion, similar to most recent prior. Impression By: Jj Wynne M.D. Results: labs reviewed, vital signs reviewed, rhythm personally rev'd Diagnosis, Assessment Plan Plan discussed with: patient, family, collaborating MD, nurse Free Text DxA P Notes Free Text DxA P Notes: 54 YO patient with MH of HTN, DM, neuropathy, tobacco abuse who presented at [facility] with shortness of breath and chest pain. She was ruled for NSTEMI, had LHC which revealed multivessed CAD. She is transferred to [facility] for CABG evaluation. 1. NSTEMI/Multivessel CAD * Echo LVEF 50-54%, G1DD, mild MR * Plavix ASA, BB, statin * S/p CABG (ASH-LAD, SVG-OM1, SVG-OM2, SVG-Diag, SVG-PDA) and ALAA * given 1 dose of IV Lasix 40 mg 2. Hypertension * BP stable, continue BB. 3. Diabetes mellitus * A1c 8 * manage per CTS 4. Acute Diastolic CHF, present to admission * LVEF 50-54% * 5. Positive heparin-induced thrombocytopenia * Platelets 61K->114K->103K * Hematology following 6. Postoperative anemia * Hemoglobin 6.6-> 9.9 * s/p 2 units PRBC 11/[address] Lindquist. at 1838 RPT #:[id number] END OF REPORT [facility] 2024-11-15 08:02:00 [facility] Hospitalist Progress Note REPORT#:[id number] REPORT STATUS: Signed REPORT INITIALIZATION DATE:11/15/24 TIME: 08 PATIENT: YUNIER PRATT UNIT #: [id number] ROOM/BED: [address] : [birth year] AGE: 54 SEX: F ATTEND: Leyda Trotter MD ADM AUTHOR: Dayanara Man MD R1 REPT SERVICE DT/TIME: 11/15/24 0802 * ALL edits or amendments must be made on the electronic/computer document * Dayanara Man 11/15/24 0802: Subjective Chief complaint: No complaints Objective General VS/I O: Vital Signs: Date Time Temp Pulse Resp B/P B/P Pulse O2 O2 Flow FiO2 Mean Ox Delivery Rate 11/15 0757 37.0 81 18 116/66 82.4 96 11/15 0755 97 Room air 11/15 0514 36.9 78 14 133/73 0.0 100 Room air 11/15 0031 37.4 76 12 131/60 0.0 96 Room air 11/14 1902 37.4 85 14 159/73 0.0 96 Room air 11/14 1738 37.5 88 20 148/71 0.0 94 Room air 11/14 1239 37.2 80 20 151/84 0.0 98 Room air 11/14 0849 99 Room air 24 hour I O ending at 0700: 11/15 0700 11/14 1900 Intake Total 500 1500 Output Total 900 1600 Balance -400 -100 Intake, Oral 500 1500 Output, Urine 900 1600 Patient 77.6 kg Weight Weight Standing scale Measurement Method PATIENT WEIGHT: Weight (lb): 171 Weight (oz): 1.26 Weight (kg): 77.600 Medications: Active Meds + DC'd Last 24 Hrs Methocarbamol (ROBAXIN) 1,000 MG Q8HR IV (DC) Furosemide (LASIX 40 mg/4 mL INJECTION) 40 MG ONCE ONE IV (DC) Insulin Glargine (Semglee) 20 UNIT BID SUBQ Sodium Chloride (SODIUM CHLORIDE 0.9%) 100 ML ASDIR PRN IV Methylnaltrexone Hazard (RELISTOR 12MG VIAL) 12 MG DAILY SUBQ (CKD) Ipratropium Hazard (ATROVENT) 500 MCG RTQ2H PRN PRN INH Cyanocobalamin (Vitamin B-12 500 mcg tab) 500 MCG DAILY PO Ferrous Sulfate (FERROUS SULFATE) 325 MG DAILY PO Quetiapine Fumarate (SeroqueL) 200 MG BEDTIME PO Gabapentin (NEURONTIN) 1,200 MG TID PO Insulin Human Lispro (Admelog) 0 AC HS SUBQ Hydromorphone HCl (DILAUDID) 1 MG Q4H PRN PRN IV Nicotine (NICODERM) 7 MG DAILY TRANSDERM (CKD) Amitriptyline HCl (ELAVIL) 25 MG BEDTIME PO Naloxone HCl (NARCAN) 0.4 MG Q2M PRN PRN IV Acetaminophen (TYLENOL EXTRA STRENGTH) 1,000 MG Q6H PO Hydromorphone HCl (DILAUDID) 4 MG Q4H PRN PRN PO Clopidogrel Bisulfate (Plavix) 75 MG DAILY PO Polyethylene Glycol (MIRALAX) 17 GM DAILY PO Pantoprazole (PROTONIX) 40 MG DAILY@0600 PO Aspirin (ASPIRIN) 81 MG DAILY PO Amiodarone HCl (CORDARONE) 200 MG TID PO Atorvastatin Calcium (LIPITOR) 40 MG 2100 PO Docusate Sodium (COLACE) 100 MG BID PO Metoprolol Tartrate (LOPRESSOR) 12.5 MG Q12HR PO Mupirocin (BACTROBAN 2% 22 GM OINTMENT) 1 APPLIC BID NASAL (DC) Sennosides (Senna Lax 8.6 MG TABLET) 17.2 MG BEDTIME PO Acetaminophen (TYLENOL) 650 MG Q4H PRN PRN RECTAL Dextrose/Water (DEXTROSE 10% IN WATER) 125 ML ASDIR PRN IV (CKD) Dextrose/Water (DEXTROSE 10% IN WATER) 250 ML ASDIR PRN IV (CKD) Glucagon (GLUCAGON) 1 MG ASDIR PRN IM Magnesium Sulfate (MAGNESIUM SULFATE 4GM/SWFI 100ML) 100 ML ASDIR PRN IV Magnesium Sulfate (MAGNESIUM SULFATE 2GM/SWFI 50ML) 50 ML ASDIR PRN IV Magnesium Sulfate/Dextrose (MAGNESIUM SULFATE 1GM/D5W 100ML) 100 ML ASDIR PRN IV Ondansetron HCl (ZOFRAN) 4 MG Q6H PRN PRN IV Potassium Chloride (KCL 20MEQ/SWFI 100ML) 100 ML ASDIR PRN IV Fluticasone Propionate (Flonase Nasal Baxter) 2 SPRAY DAILY NASAL (CKD) Physical Exam Head/Eyes: atraumatic, normocephalic ENT: moist mucosal membranes, normal dentition Neck: full range of motion, supple/no meningismus Cardiovascular: normal heart sounds, regular rate rhythm, no murmur Respiratory: aerating well, clear to auscultation, symmetric expansion, no distress Abdomen: non-tender, soft, no distention, no guarding, no rebound Extremities: moves all, no edema 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, oriented X 3, CNII-XII intact, no motor deficits, no sensory deficits Skin: dry, intact, no rash Psychiatry: normal affect, normal mood Results Findings/Data: Laboratory Tests 11/15 11/14 11/14 11/14 11/14 0500 2059 1734 1235 0949 Chemistry Sodium (134 - 147 mEq/L) 139 137 Potassium (3.4 - 5.0 mEq/L) 4.2 3.8 Chloride (100 - 108 mEq/L) 104 104 Carbon Dioxide (21 - 33 mEq/l) 28 27 Anion Gap (0 - 20) 11 10 BUN (7 - 25 mg/dL) 12 11 Creatinine (0.6 - 1.3 mg/dL) 0.7 0.7 Glomerular Filtr Rate (90 - 95) 104.0 H 104.0 H Glucose (77 - 141 mg/dL) 229 H 260 H POC Glucose (70 - 110 MG/DL) 143 H 82 295 H Calcium (8.0 - 10.5 mg/dL) 8.6 8.7 Magnesium (1.6 - 2.6 mg/dL) 2.03 1.99 Laboratory Tests 11/15 11/14 0500 0949 Hematology WBC (4.5 - 11.0 x10 3/uL) 4.7 5.3 RBC (3.54 - 5.02 x10 6/uL) 3.39 L 3.69 Hgb (11.0 - 15.0 g/dL) 8.6 L 9.5 L Hct (33.0 - 45.0 %) 28.3 L 30.6 L MCV (81.0 - 99.0 fL) 83.5 82.9 MCH (27.0 - 33.0 pg) 25.4 L 25.7 L MCHC (33.0 - 37.0 g/dL) 30.4 L 31.0 L RDW (11.5 - 14.5 %) 16.7 H 16.4 H Plt Count (150 - 400 x10 3/uL) 103 L 114 L MPV (7.0 - 9.0 fL) 12.1 H 13.4 H Neut % (Auto) (56.0 - 77.0 %) 65.3 69.0 Lymph % (Auto) (14.0 - 32.0 %) 17.8 17.9 Brule % (Auto) (4.8 - 9.0 %) 11.6 H 8.3 Eos % (Auto) (0.3 - 3.7 %) 4.3 H 4.0 H Baso % (Auto) (0.0 - 2.0 %) 0.6 0.4 Neut # (Auto) (2.0 - 7.6 x10 3/uL) 3.05 3.67 Lymph # (Auto) (1.0 - 3.8 x10 3/uL) 0.83 L 0.95 L Brule # (Auto) (0.1 - 0.8 x10 3/uL) 0.54 0.44 Eos # (Auto) (0.0 - 0.2 x10 3/uL) 0.20 0.21 H Baso # (Auto) (0.0 - 0.2 x10 3/uL) 0.03 0.02 Abs Immat Gran (auto) (0.00 - 0.03 x10 3/uL) 0.02 0.02 Immature Gran % (0.0 - 2.0 %) 0.4 0.4 Nucleated RBC % (0 - 0 %) 0.0 0.0 Nucleated RBCs # (Man) (0.0 - 0.1 x10 3/uL) 0.00 0.00 Diagnosis, Assessment Plan Hospital course to date: 11/10- POD #1 CABG. c/o post op pain. d/w CV surgery team and pain management consulted 11/11- POD #2 CABG. pain is much better controlled. possibly transfer out of CCU today. chest tubes out yesterday.lasix x1 today 11/12: POD #3. Hyperglycemia improved after adding Lantus 15 BID. 11/13: Hb 6.6 today. 2 units RBC transfused. HIT panel postive, Heme Onc consulted and RACHELLE panel sent. CXR shows diffsue congestive changes. Venous doppler negative. 11/15: Fecal occult blood and RACHELLE pendingn Consultants: cardiology, cardiovascular surgery Free Text DxA P Notes Free text DxA P notes: 54 yo F w PMHx of HTN, DM presented for evaluation of SOB and chest pain at [facility]. Patient was found to have NSTEMI. 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 Patient was transported to [facility] for CABG evaluation. Assessment and Plan Heparin Induced Thrombocytopenia -As per Hematology and CTS anticoagulation, will hold off on argatroban but watch closely for any thrombosis, platelet counts and await RACHELLE testing result. -Platelets 94>61>114 -HIT panel positive, pending RACHELLE -Heme-Onc consulted NSTEMI Multivessel Coronary Artery Disease - s/p CABG 11/09 - POD #6 - PRN lasix - On aspirin and plavix History of Essential Hypertension - Resume home BP meds when appropriate - Lopressor 12.5 BID Interstitial lung disease -PFTs done show FVC is 64% of predicted. FEV1 is 60% of predicted. Ratio is normal. History of Diabetes Mellitus Type-2, Uncontrolled - HGB A1c 8.0 - Blood sugar monitoring - Lantus 20 BID - Insulin SS History of Diabetic Neuropathy - Continue Gabapentin 1,200MG PO TID (verified) - Continue home Cymbalta History of Anxiety - Continue Seroquel 200MG PO bedtime Diet: Regular DVT ppx: Heparin gtt Pepcid FULL CODE Dispo: FOBT and RACHELLE trending. Keep trending Hb Leyda Trotter 11/15/24 2014: Attestations Teaching Physician Attestation F/U visit w/o resident: I personally saw the patient and reviewed the resident's note. I . . . agree with the resident's findings and plan. at 1526 at 2014 RPT #:[id number] END OF REPORT [facility] 2024-11-14 20:28:00 [facility] ([facility]) Tereso/Oncology Progress Note REPORT#:[id number] REPORT STATUS: Signed REPORT INITIALIZATION DATE:11/14/24 TIME: 2027 PATIENT: YUNIER PRATT UNIT #: [id number] ROOM/BED: 3360-1 : 72 AGE: 54 SEX: F ATTEND: Leyda Trotter MD ADM AUTHOR: Huey Michelle MD REPT SERVICE DT/TIME: 11/14/242027 * ALL edits or amendments must be made on the electronic/computer document * Subjective Chief Complaint: pt doing ok. s/p 2 u prbc Objective Physical Exam VS: Vital Signs Date Temp Pulse Resp B/P B/P Mean Pulse Ox FiO2 11/13-11/14 36.9-37.5 75-91 12-31 108-159/60-84 0.0-94.7 93-100 Last Documented: Result Date Time Pulse Ox 96 11/14 1902 B/P 159/73 11/14 1902 B/P Mean 0.0 11/14 1902 O2 Delivery Room air 11/14 190 Temp 37.4 11/14 190 Pulse 85 11/14 1902 Resp 14 11/14 190 FiO2 21 11/13 1053 O2 Flow Rate 0 11/11 1601 HEENT: pupils reactive to light Cardiovascular: regular rate and rhythm, normal S1/S2 Respiratory: symmetric expansion Abdomen: non-tender, soft Extremities: edema, moves all, normal temperature, no edema 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, oriented X 3, no motor deficits Current Medications Medications: Active Meds + DC'd Last 24 Hrs Methocarbamol (ROBAXIN) 1,000 MG Q8HR IV Furosemide (LASIX 40 mg/4 mL INJECTION) 40 MG ONCE ONE IV (DC) Bisacodyl (DULCOLAX) 10 MG ONCE ONE RECTAL (DC) Magnesium Hydroxide (MILK OF MAGNESIA) 30 ML ONCE ONE PO (DC) Insulin Glargine (Semglee) 20 UNIT BID SUBQ Sodium Chloride (SODIUM CHLORIDE 0.9%) 100 ML ASDIR PRN IV Methylnaltrexone Hazard (RELISTOR 12MG VIAL) 12 MG DAILY SUBQ (CKD) Ipratropium Hazard (ATROVENT) 500 MCG RTQ2H PRN PRN INH Cyanocobalamin (Vitamin B-12 500 mcg tab) 500 MCG DAILY PO Ferrous Sulfate (FERROUS SULFATE) 325 MG DAILY PO Quetiapine Fumarate (SeroqueL) 200 MG BEDTIME PO Gabapentin (NEURONTIN) 1,200 MG TID PO Insulin Human Lispro (Admelog) 0 AC HS SUBQ Hydromorphone HCl (DILAUDID) 1 MG Q4H PRN PRN IV Nicotine (NICODERM) 7 MG DAILY TRANSDERM (CKD) Methocarbamol (ROBAXIN) 1,000 MG Q8HR IV (DC) Amitriptyline HCl (ELAVIL) 25 MG BEDTIME PO Naloxone HCl (NARCAN) 0.4 MG Q2M PRN PRN IV Acetaminophen (TYLENOL EXTRA STRENGTH) 1,000 MG Q6H PO Hydromorphone HCl (DILAUDID) 4 MG Q4H PRN PRN PO Clopidogrel Bisulfate (Plavix) 75 MG DAILY PO Polyethylene Glycol (MIRALAX) 17 GM DAILY PO Pantoprazole (PROTONIX) 40 MG DAILY@0600 PO Aspirin (ASPIRIN) 81 MG DAILY PO Amiodarone HCl (CORDARONE) 200 MG TID PO Atorvastatin Calcium (LIPITOR) 40 MG 2100 PO Docusate Sodium (COLACE) 100 MG BID PO Metoprolol Tartrate (LOPRESSOR) 12.5 MG Q12HR PO Mupirocin (BACTROBAN 2% 22 GM OINTMENT) 1 APPLIC BID NASAL (DC) Sennosides (Senna Lax 8.6 MG TABLET) 17.2 MG BEDTIME PO Acetaminophen (TYLENOL) 650 MG Q4H PRN PRN RECTAL Dextrose/Water (DEXTROSE 10% IN WATER) 125 ML ASDIR PRN IV (CKD) Dextrose/Water (DEXTROSE 10% IN WATER) 250 ML ASDIR PRN IV (CKD) Glucagon (GLUCAGON) 1 MG ASDIR PRN IM Magnesium Sulfate (MAGNESIUM SULFATE 4GM/SWFI 100ML) 100 ML ASDIR PRN IV Magnesium Sulfate (MAGNESIUM SULFATE 2GM/SWFI 50ML) 50 ML ASDIR PRN IV Magnesium Sulfate/Dextrose (MAGNESIUM SULFATE 1GM/D5W 100ML) 100 ML ASDIR PRN IV Ondansetron HCl (ZOFRAN) 4 MG Q6H PRN PRN IV Potassium Chloride (KCL 20MEQ/SWFI 100ML) 100 ML ASDIR PRN IV Fluticasone Propionate (Flonase Nasal Baxter) 2 SPRAY DAILY NASAL (CKD) Results Findings/Data: Laboratory Tests 11/14/24 0949: [Embedded Image Not Available] Laboratory Tests 11/14 11/14 11/14 11/14 11/13 1734 1235 0949 0810 2357 Chemistry Sodium (134 - 147 mEq/L) 137 Potassium (3.4 - 5.0 mEq/L) 3.8 Chloride (100 - 108 mEq/L) 104 Carbon Dioxide (21 - 33 mEq/l) 27 Anion Gap (0 - 20) 10 BUN (7 - 25 mg/dL) 11 Creatinine (0.6 - 1.3 mg/dL) 0.7 Glomerular Filtr Rate (90 - 95) 104.0 H Glucose (77 - 141 mg/dL) 260 H POC Glucose (70 - 110 MG/DL) 82 295 H 128 H 93 Calcium (8.0 - 10.5 mg/dL) 8.7 Magnesium (1.6 - 2.6 mg/dL) 1.99 Laboratory Tests 11/14 0949 Hematology WBC (4.5 - 11.0 x10 3/uL) 5.3 RBC (3.54 - 5.02 x10 6/uL) 3.69 Hgb (11.0 - 15.0 g/dL) 9.5 L Hct (33.0 - 45.0 %) 30.6 L MCV (81.0 - 99.0 fL) 82.9 MCH (27.0 - 33.0 pg) 25.7 L MCHC (33.0 - 37.0 g/dL) 31.0 L RDW (11.5 - 14.5 %) 16.4 H Plt Count (150 - 400 x10 3/uL) 114 L MPV (7.0 - 9.0 fL) 13.4 H Neut % (Auto) (56.0 - 77.0 %) 69.0 Lymph % (Auto) (14.0 - 32.0 %) 17.9 Brule % (Auto) (4.8 - 9.0 %) 8.3 Eos % (Auto) (0.3 - 3.7 %) 4.0 H Baso % (Auto) (0.0 - 2.0 %) 0.4 Neut # (Auto) (2.0 - 7.6 x10 3/uL) 3.67 Lymph # (Auto) (1.0 - 3.8 x10 3/uL) 0.95 L Brule # (Auto) (0.1 - 0.8 x10 3/uL) 0.44 Eos # (Auto) (0.0 - 0.2 x10 3/uL) 0.21 H Baso # (Auto) (0.0 - 0.2 x10 3/uL) 0.02 Abs Immat Gran (auto) (0.00 - 0.03 x10 3/uL) 0.02 Immature Gran % (0.0 - 2.0 %) 0.4 Nucleated RBC % (0 - 0 %) 0.0 Nucleated RBCs # (Man) (0.0 - 0.1 x10 3/uL) 0.00 Radiology data: Recent Impressions: RADIOLOGY - XR CHEST 1 V 11/14 0892 Report Impression - Status: SIGNED Entered: 11/14/2024 1103 IMPRESSION: Features of congestive heart failure with small left pleural effusion, similar to most recent prior. Impression By: Jj Wynne M.D. Diagnosis, Assessment Plan Free Text DxA P Notes Free Text DxA P Notes: 1. Thrombocytopenia 2. Positive DECLAN antibody test 3. s/p CABG x5 on 11/09/24 POD #3 4. Anemia post surgery acute on chronic Per MICA ([place] [employer]) guidelines of diagnosis and management of DECLAN This patient has a low clinical probability of DECLAN based on 4Ts scoring - Thrombocytopenia >50% but timing less than 4 days from exposure, and no thrombosis. Other possible causes of thrombocytopenia exist (related to consumption and blood loss post surgery as- HGB dropped as well). she is at 3 point score which is low probability. Laboratory testing DECLAN positive by EISA but RACHELLE is pending which is more specific test. 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 This could be false positive but given positive test until RACHELLE assay is available will consider non heparin anticoagulant argatroban to prevent future thrombosis and ischemia risk. If RACHELLE is negative can dc argatroban. If RACHELLE is positive would transition to DOAC such as eliquis. This patient has a high risk of bleeding as post op state and HGB 6.6. low HIT probability. Hence will also check with [facility] if they feel strongly against starting argatroban weighing risk and benefit will hold off on argatroban but watch closely for any thrombosis, monitor platelet counts and await RACHELLE testing. 11/14 * HGB 9.5 plt 114k s/p 2 u prbc. seems transient thrombocytopenia more likely from consumption. * after d/w [facility] decided against any needs for argatroban unless positive RACHELLE noted. * platelet ct improving * cbc in am at 2031 RPT #:[id number] END OF REPORT [facility] 2024-11-14 13:46:00 [facility] ([facility]) Clinical Note REPORT#:[id number] REPORT STATUS: Signed REPORT INITIALIZATION DATE:11/14/24 TIME: 1345 PATIENT: YUNIER PRATT UNIT #: [id number] ROOM/BED: [place] [id number] : 72 AGE: 54 SEX: F ATTEND: Leyda Trotter MD ADM AUTHOR: Talita Monzon REPT SERVICE DT/TIME: 11/14/24 1346 * ALL edits or amendments must be made on the electronic/computer document * See Addendum Clinical Note Note: Clinical Summary Planned Surgery: Isolated CABG, Urgent, First cardiovascular surgery Demographics: 54 year old, White, female, 73.7kg, 167.64cm, BMI: 26.2 kg/m PreOp Medications: Insulin diabetes control Substance Abuse: Current smoker Risk Factors / Comorbidities: Insulin-dependent Diabetes Mellitus, Hypertension Pulmonary RF: Mild CLD Cardiac Status: Ejection Fraction = 50% Coronary Artery Disease: 3 vessels diseased, Proximal LAD Stenosis = 70%, Non- ST Elevation W[place], WV: 1 to 7 Days Valve Disease: Mild MR, Mild TR Clinical Summary Planned Surgery: Isolated CABG, Urgent, First cardiovascular surgery Demographics: 54 year old, White, female, 73.7kg, 167.64cm, BMI: 26.2 kg/m PreOp Medications: Insulin diabetes control Substance Abuse: Current smoker Risk Factors / Comorbidities: Insulin-dependent Diabetes Mellitus, Hypertension Pulmonary RF: Mild CLD Cardiac Status: Ejection Fraction = 50% Coronary Artery Disease: 3 vessels diseased, Proximal LAD Stenosis = 70%, Non- ST Elevation WV, WV: 1 to 7 Days Valve Disease: Mild MR, Mild TR at 1352 Addendum 1: 11/14/24 1353 by Talita Monzon Procedure Type: Isolated CABG Perioperative Outcome Estimate % Operative Mortality 0.841% Morbidity Mortality 6.27% Stroke 0.912% Renal Failure 0.946% Reoperation 1.93% Prolonged Ventilation 3.05% Deep Sternal Wound Infection 0.567% Long Hospital Stay (>14 days) 3.2% Short Hospital Stay (<6 days)* 48.8% at 1353 RPT #:[id number] END OF REPORT [facility] 2024-11-14 10:06:00 [facility] Cardiothoracic Surgery Prog REPORT#:[id number] REPORT STATUS: Signed REPORT INITIALIZATION DATE:11/14/24 TIME: 1006 PATIENT: YUNIER PRATT UNIT #: [id number] ROOM/BED: [place] [id number] : 72 AGE: 54 SEX: F ATTEND: Leyda Trotter MD ADM AUTHOR: Talita Monzon REPT SERVICE DT/TIME: 11/14/24 1006 * ALL edits or amendments must be made on the electronic/computer document * General Post-op: day 5 Status post: 11/09/24 1. Coronary artery bypass graft surgery x5 (ASH to LAD, saphenous vein to diagonal, saphenous vein to first marginal, saphenous vein to second marginal, saphenous vein to PDA). 2. Amputation of left atrial appendage. 3. Endoscopic vein harvest bilateral greater saphenous vein. 4. Posterior pericardiotomy. Subjective Chief complaint: Post op Review of Systems Constitutional: Reports: fatigue, generalized weakness. Denies: chills, fever. Skin: Denies: abrasion. Eyes: Denies: redness. ENT: Denies: ear drainage. Respiratory: Denies: HARTMAN (dyspnea on exertion), hemoptysis, non productive cough, SOB. Cardiovascular: Denies: chest pain, HARTMAN (dyspnea on exertion), edema. GI: Denies: abdominal pain. : Denies: dysuria. Musculoskeletal: Denies: arthritis. All systems rev neg: except as marked Objective General VS/I O Last Documented: Result Date Time Pulse Ox 99 11/14 0849 O2 Delivery Room air 11/14 0849 B/P 132/70 11/14 0815 B/P Mean 0.0 11/15 0715 Temp 99.0 11/14 0815 Pulse 84 11/14 0815 Resp 24 11/14 0815 FiO2 21 11/13 1053 O2 Flow Rate 0 11/11 1601 24 hour I O ending at 0700: 11/14 0700 11/13 1900 Intake Total 1220 1850.00 Output Total 660 1200 Balance 560 650.00 Intake, IV 250 450.00 Intake, Oral 720 1100 Intake, 250 300 Packed Cells Number 0 Bowel Movements Number Voids 3 Output, Urine 660 1200 PATIENT WEIGHT: Weight (lb): 162 Weight (oz): 7.69 Weight (kg): 73.700 Dietitian Nutrition assessment The data set between the solid lines has been imported from the dietitian's assessment. BMI Calculated: 26.2 Nutrition related diagnosis: Nutrition diagnosis details: Nutrition problem: Increased nutrient needs Nutrition etiology: Decreased/poor appetite, Decreased intake, Chronic disease Nutrition signs and symptoms: Mild muscle loss, 20% or more weight loss, S/P SURGERY Nutrition prescription: RECOMMEND: 1. RECOMMEND A CCD5 CARDIAC DIET. 2. RECOMMEND GLUCERNA TID WITH MEALS. Dietitian name: Evelin Perez, DIET Assessment completed: 11/10/24 Physical Exam General appearance: alert, awake, oriented Wound/incision: Location: sternum Site condition: incision intact, no changes in wound, no drainage HEENT: mucosal membranes moist, pupils reactive to light Neck: full range of motion, non-tender Cardiovascular: regular rate rhythm Respiratory: symmetric expansion, no distress Abdomen: soft, non-tender Extremities: dry, moves all 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, oriented X 3 Skin: dry, intact Current Medications Medications: Active Meds + DC'd Last 24 Hrs Methocarbamol (ROBAXIN) 1,000 MG Q8HR IV Bisacodyl (DULCOLAX) 10 MG ONCE ONE RECTAL (DC) Magnesium Hydroxide (MILK OF MAGNESIA) 30 ML ONCE ONE PO (DC) Insulin Glargine (Semglee) 20 UNIT BID SUBQ Sodium Chloride (SODIUM CHLORIDE 0.9%) 100 ML ASDIR PRN IV Methylnaltrexone Hazard (RELISTOR 12MG VIAL) 12 MG DAILY SUBQ (CKD) Ipratropium Hazard (ATROVENT) 500 MCG RTQ2H PRN PRN INH Cyanocobalamin (Vitamin B-12 500 mcg tab) 500 MCG DAILY PO Ferrous Sulfate (FERROUS SULFATE) 325 MG DAILY PO Quetiapine Fumarate (SeroqueL) 200 MG BEDTIME PO Gabapentin (NEURONTIN) 1,200 MG TID PO Insulin Human Lispro (Admelog) 0 AC HS SUBQ Hydromorphone HCl (DILAUDID) 1 MG Q4H PRN PRN IV Nicotine (NICODERM) 7 MG DAILY TRANSDERM (CKD) Methocarbamol (ROBAXIN) 1,000 MG Q8HR IV (DC) Amitriptyline HCl (ELAVIL) 25 MG BEDTIME PO Naloxone HCl (NARCAN) 0.4 MG Q2M PRN PRN IV Acetaminophen (TYLENOL EXTRA STRENGTH) 1,000 MG Q6H PO Hydromorphone HCl (DILAUDID) 4 MG Q4H PRN PRN PO Clopidogrel Bisulfate (Plavix) 75 MG DAILY PO Polyethylene Glycol (MIRALAX) 17 GM DAILY PO Pantoprazole (PROTONIX) 40 MG DAILY@0600 PO Aspirin (ASPIRIN) 81 MG DAILY PO Amiodarone HCl (CORDARONE) 200 MG TID PO Atorvastatin Calcium (LIPITOR) 40 MG 2100 PO Docusate Sodium (COLACE) 100 MG BID PO Metoprolol Tartrate (LOPRESSOR) 12.5 MG Q12HR PO Mupirocin (BACTROBAN 2% 22 GM OINTMENT) 1 APPLIC BID NASAL (DC) Sennosides (Senna Lax 8.6 MG TABLET) 17.2 MG BEDTIME PO Acetaminophen (TYLENOL) 650 MG Q4H PRN PRN RECTAL Dextrose/Water (DEXTROSE 10% IN WATER) 125 ML ASDIR PRN IV (CKD) Dextrose/Water (DEXTROSE 10% IN WATER) 250 ML ASDIR PRN IV (CKD) Glucagon (GLUCAGON) 1 MG ASDIR PRN IM Magnesium Sulfate (MAGNESIUM SULFATE 4GM/SWFI 100ML) 100 ML ASDIR PRN IV Magnesium Sulfate (MAGNESIUM SULFATE 2GM/SWFI 50ML) 50 ML ASDIR PRN IV Magnesium Sulfate/Dextrose (MAGNESIUM SULFATE 1GM/D5W 100ML) 100 ML ASDIR PRN IV Ondansetron HCl (ZOFRAN) 4 MG Q6H PRN PRN IV Potassium Chloride (KCL 20MEQ/SWFI 100ML) 100 ML ASDIR PRN IV Fluticasone Propionate (Flonase Nasal Baxter) 2 SPRAY DAILY NASAL (CKD) Results Findings/Data: Laboratory Tests 11/14 11/13 11/13 11/13 11/13 0810 2357 1918 1633 1135 Chemistry POC Glucose (70 - 110 MG/DL) 128 H 93 213 H 85 212 H Results: labs reviewed, vital signs stable, nadia personally rev'd, current med profile rev'd Diagnosis, Assessment Plan Hospital course to date: This is a 54-year-old female with a past medical history of hypertension, diabetes on insulin who presented to [facility] with complaints of chest pain. She was ruled in for NSTEMI on her blood work. 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 Patient was transferred to [facility] for further evaluation and workup of multivessel CAD. Patient denies any alcohol or drug use. He does report half pack a day smoking for the past 40 years. 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 Assessment/plan 1. Hypertension 2. Diabetes on insulin 3. NSTEMI 4. Multivessel CAD Patient seen and examined. Patient will begin workup for consideration for coronary bypass graft surgery. Appropriate preoperative studies will be completed. Echocardiogram pending vein mapping pending Carotid Doppler pending Will obtain pulmonary function test due to patient's history of smoking Further recs to follow based on further clinical workup. 11/09/24 1. Coronary artery bypass graft surgery x5 (ASH to LAD, saphenous vein to diagonal, saphenous vein to first marginal, saphenous vein to second marginal, saphenous vein to PDA). 2. Amputation of left atrial appendage. 3. Endoscopic vein harvest bilateral greater saphenous vein. 4. Posterior pericardiotomy. 11/10/24 POD 1 AAOx3 Patient reports pain, Multimodal pain control Respiratory: 4 L nasal cannula Encourage IS, Deep Breathing, CXR reviewed chest tube drainage 25 and 25 so far this morning after walking. Chest tubes causing marked amount of pain. Will DC chest tubes Cardiac: Sinus rhythm, pacing wires on standby GI: Advance diet as tolerated, monitor glycemic control : Ramirez in place, monitor urine output UO: 765 overnight PT/OT, patient walked the unit Disposition: Patient has good family support DVT prophylaxis, SCDs in place Continue DAPT, metoprolol, Lipitor, amiodarone Labs reveiwed- replace electrolytes as needed Patient seen and examined by Dr. Ross. Plan of care discussed with patient and multidisciplinary team. The patient's questions were answered 11/11/24 POD 2 AAOx3 Patient reports pain, Multimodal pain control, pain management following Respiratory: Room air Encourage IS, Deep Breathing, CXR reviewed, chest tubes removed yesterday. Bilateral pleural effusions. Continue diuresis for now. Patient may need right pigtail placement GI: Advance diet as tolerated, monitor glycemic control : F Ramirez DC'd yesterday. Voiding well PT/OT, patient walked the unit Disposition: Patient has good family support DVT prophylaxis, SCDs in place Continue DAPT, metoprolol, Lipitor, amiodarone Labs reveiwed- replace electrolytes as needed Patient seen and examined by Dr. Ross. Plan of care discussed with patient and multidisciplinary team. The patient's questions were answered Give Lasix 20 IV today. 11/12/24 POD 3 AAOx3 Patient reports pain, Multimodal pain control, pain management following, consider decreasing pain m meds. Respiratory: Room air Encourage IS, Deep Breathing, CXR reviewed, pleural effusion appears to be improving continue diuresing. GI: Tolerating diet, pending BM : Voiding well PT/OT, patient walked the unit Disposition: Patient has good family support DVT prophylaxis, SCDs in place Continue DAPT, metoprolol, Lipitor, amiodarone Labs reveiwed- replace electrolytes as needed Patient seen and examined by Dr. Ross. Plan of care discussed with patient and multidisciplinary team. The patient's questions were answered 20 of Lasix given. Platelets trending down, Will order HIT panel 11/13/24 POD 4 AAOx3 Labs reviewed, replace electrolytes as needed, hgb dropped to 6.6 from 7.8, plts 61 HIT panel positive, pending RACHELLE Patient reports improved pain, Multimodal pain control, pain management following Respiratory: Room air, Encourage IS, Deep Breathing, CXR reviewed, There are diffuse congestive changes bilaterally. No pneumothorax or pleural effusion is identified. NSR, monitoring BP closly, pacing wires on standby GI: Tolerating diet, pending BM, mom suppository today : Voiding well, urine output 400cc overnight, Lasix today PT/OT, patient walked the unit Disposition: Patient has good family support DVT prophylaxis, SCDs in place DVT study ordered, negative DVT to Left leg, ordered updated bilateral Lower extremity Continue DAPT, metoprolol, Lipitor, amiodarone Labs reviewed- replace electrolytes as needed Patient seen and examined by Dr. Ross. Plan of care discussed with patient and multidisciplinary team. The patient's questions were answered. 11/14/24 POD 5 AAOx3 Pending updated labs, replace electrolytes as needed, yesterday hgb dropped to 6.6 from 7.8, plts 61, pending stool occult HIT panel positive, pending RACHELLE Discussed with hematology plan for anticoagulation, will hold off on argatroban but watch closely for any thrombosis, platelet counts and await RACHELLE testing result. Patient reports improved pain, Multimodal pain control, pain management following Respiratory: Room air, Encourage IS, Deep Breathing, CXR reviewed NSR, monitoring BP closly, pacing wires on standby GI: Tolerating diet, pending BM, mom suppository today : Voiding well, weight still up from baseline, continue diuresis PT/OT, patient ambulating around the unit Disposition: Patient has good family support DVT prophylaxis, SCDs in place DVT study negative for DVT to CORNELL LE Continue DAPT, metoprolol, Lipitor, amiodarone Patient seen and examined by Dr. Ross. Plan of care discussed with patient and multidisciplinary team. The patient's questions were answered. Consultants: cardiology, cardiovascular surgery Code status: full code Plan discussed with: patient, collaborating MD, nurse, interdisc care team at 1015 RPT #:[id number] END OF REPORT [facility] 2024-11-14 08:53:00 [facility] ([facility]) Hospitalist Progress Note REPORT#:[id number] REPORT STATUS: Signed REPORT INITIALIZATION DATE:11/14/24 TIME: 852 PATIENT: YUNIER PRATT UNIT #: [id number] ROOM/BED: [place] [id number] : 72 AGE: 54 SEX: F ATTEND: Leyda Trotter MD ADM AUTHOR: Dayanara Man MD R1 REPT SERVICE DT/TIME: 11/14/24 0853 * ALL edits or amendments must be made on the electronic/computer document * Dayanara Man 11/14/24 0853: Subjective Chief complaint: No complaints Objective General VS/I O: Vital Signs: Date Time Temp Pulse Resp B/P B/P Pulse O2 O2 Flow FiO2 Mean Ox Delivery Rate 11/14 1239 37.2 80 20 151/84 0.0 98 Room air 11/14 0849 99 Room air 11/14 0815 37.2 84 24 132/70 0.0 95 Room air 11/14 0534 78 12 123/64 98 11/14 0504 76 12 123/64 100 11/14 0416 36.9 80 31 125/79 94.7 11/14 0354 80 20 125/79 98 11/14 0339 37.1 76 12 119/66 96 11/14 0312 37.1 76 17 128/62 98 11/14 0242 85 12 115/60 99 11/14 0235 37.1 76 21 113/66 99 11/14 0230 37.1 77 25 150/72 99 11/13 2349 76 26 108/68 81.1 93 11/13 2300 75 30 11/13 2200 80 30 11/13 2059 91 11/13 1957 89 95 11/13 1940 100 Room air 11/13 1910 37.7 64 64 138/75 96.0 96 11/13 1900 87 29 99 11/13 1634 36.7 92 18 132/75 94.2 99 11/13 1605 89 29 142/67 96 96 11/13 1605 37.2 88 23 142/67 95 11/13 1600 87 27 137/65 93 97 11/13 1600 37.1 87 22 137/65 96 11/13 1556 85 30 129/69 92 95 11/13 1555 36.9 84 22 129/69 95 11/13 1550 82 21 119/57 82 96 11/13 1550 37.1 82 20 119/56 96 11/13 1500 80 33 100 24 hour I O ending at 0700: 11/14 0700 11/13 1900 Intake Total 1220 1850.00 Output Total 660 1200 Balance 560 650.00 Intake, IV 250 450.00 Intake, Oral 720 1100 Intake, 250 300 Packed Cells Number 0 Bowel Movements Number Voids 3 Output, Urine 660 1200 PATIENT WEIGHT: Weight (lb): 162 Weight (oz): 7.69 Weight (kg): 73.700 Medications: Active Meds + DC'd Last 24 Hrs Methocarbamol (ROBAXIN) 1,000 MG Q8HR IV Furosemide (LASIX 40 mg/4 mL INJECTION) 40 MG ONCE ONE IV (DC) Bisacodyl (DULCOLAX) 10 MG ONCE ONE RECTAL (DC) Magnesium Hydroxide (MILK OF MAGNESIA) 30 ML ONCE ONE PO (DC) Insulin Glargine (Semglee) 20 UNIT BID SUBQ Sodium Chloride (SODIUM CHLORIDE 0.9%) 100 ML ASDIR PRN IV Methylnaltrexone Hazard (RELISTOR 12MG VIAL) 12 MG DAILY SUBQ (CKD) Ipratropium Hazard (ATROVENT) 500 MCG RTQ2H PRN PRN INH Cyanocobalamin (Vitamin B-12 500 mcg tab) 500 MCG DAILY PO Ferrous Sulfate (FERROUS SULFATE) 325 MG DAILY PO Quetiapine Fumarate (SeroqueL) 200 MG BEDTIME PO Gabapentin (NEURONTIN) 1,200 MG TID PO Insulin Human Lispro (Admelog) 0 AC HS SUBQ Hydromorphone HCl (DILAUDID) 1 MG Q4H PRN PRN IV Nicotine (NICODERM) 7 MG DAILY TRANSDERM (CKD) Methocarbamol (ROBAXIN) 1,000 MG Q8HR IV (DC) Amitriptyline HCl (ELAVIL) 25 MG BEDTIME PO Naloxone HCl (NARCAN) 0.4 MG Q2M PRN PRN IV Acetaminophen (TYLENOL EXTRA STRENGTH) 1,000 MG Q6H PO Hydromorphone HCl (DILAUDID) 4 MG Q4H PRN PRN PO Clopidogrel Bisulfate (Plavix) 75 MG DAILY PO Polyethylene Glycol (MIRALAX) 17 GM DAILY PO Pantoprazole (PROTONIX) 40 MG DAILY@0600 PO Aspirin (ASPIRIN) 81 MG DAILY PO Amiodarone HCl (CORDARONE) 200 MG TID PO Atorvastatin Calcium (LIPITOR) 40 MG 2100 PO Docusate Sodium (COLACE) 100 MG BID PO Metoprolol Tartrate (LOPRESSOR) 12.5 MG Q12HR PO Mupirocin (BACTROBAN 2% 22 GM OINTMENT) 1 APPLIC BID NASAL (DC) Sennosides (Senna Lax 8.6 MG TABLET) 17.2 MG BEDTIME PO Acetaminophen (TYLENOL) 650 MG Q4H PRN PRN RECTAL Dextrose/Water (DEXTROSE 10% IN WATER) 125 ML ASDIR PRN IV (CKD) Dextrose/Water (DEXTROSE 10% IN WATER) 250 ML ASDIR PRN IV (CKD) Glucagon (GLUCAGON) 1 MG ASDIR PRN IM Magnesium Sulfate (MAGNESIUM SULFATE 4GM/SWFI 100ML) 100 ML ASDIR PRN IV Magnesium Sulfate (MAGNESIUM SULFATE 2GM/SWFI 50ML) 50 ML ASDIR PRN IV Magnesium Sulfate/Dextrose (MAGNESIUM SULFATE 1GM/D5W 100ML) 100 ML ASDIR PRN IV Ondansetron HCl (ZOFRAN) 4 MG Q6H PRN PRN IV Potassium Chloride (KCL 20MEQ/SWFI 100ML) 100 ML ASDIR PRN IV Fluticasone Propionate (Flonase Nasal Baxter) 2 SPRAY DAILY NASAL (CKD) Physical Exam Head/Eyes: atraumatic, normocephalic ENT: moist mucosal membranes, normal dentition Neck: full range of motion, supple/no meningismus Cardiovascular: normal heart sounds, regular rate rhythm, no murmur Respiratory: aerating well, clear to auscultation, symmetric expansion, no distress Abdomen: non-tender, soft, no distention, no guarding, no rebound Extremities: moves all, no edema 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, oriented X 3, CNII-XII intact, no motor deficits, no sensory deficits Skin: dry, intact, no rash Psychiatry: normal affect, normal mood Results Findings/Data: Laboratory Tests 11/14 11/14 11/14 11/13 11/13 1235 0949 0810 2357 1918 Chemistry Sodium (134 - 147 mEq/L) 137 Potassium (3.4 - 5.0 mEq/L) 3.8 Chloride (100 - 108 mEq/L) 104 Carbon Dioxide (21 - 33 mEq/l) 27 Anion Gap (0 - 20) 10 BUN (7 - 25 mg/dL) 11 Creatinine (0.6 - 1.3 mg/dL) 0.7 Glomerular Filtr Rate (90 - 95) 104.0 H Glucose (77 - 141 mg/dL) 260 H POC Glucose (70 - 110 MG/DL) 295 H 128 H 93 213 H Calcium (8.0 - 10.5 mg/dL) 8.7 Magnesium (1.6 - 2.6 mg/dL) 1.99 11/13 1633 Chemistry POC Glucose (70 - 110 MG/DL) 85 Laboratory Tests 11/14 0949 Hematology WBC (4.5 - 11.0 x10 3/uL) 5.3 RBC (3.54 - 5.02 x10 6/uL) 3.69 Hgb (11.0 - 15.0 g/dL) 9.5 L Hct (33.0 - 45.0 %) 30.6 L MCV (81.0 - 99.0 fL) 82.9 MCH (27.0 - 33.0 pg) 25.7 L MCHC (33.0 - 37.0 g/dL) 31.0 L RDW (11.5 - 14.5 %) 16.4 H Plt Count (150 - 400 x10 3/uL) 114 L MPV (7.0 - 9.0 fL) 13.4 H Neut % (Auto) (56.0 - 77.0 %) 69.0 Lymph % (Auto) (14.0 - 32.0 %) 17.9 Brule % (Auto) (4.8 - 9.0 %) 8.3 Eos % (Auto) (0.3 - 3.7 %) 4.0 H Baso % (Auto) (0.0 - 2.0 %) 0.4 Neut # (Auto) (2.0 - 7.6 x10 3/uL) 3.67 Lymph # (Auto) (1.0 - 3.8 x10 3/uL) 0.95 L Brule # (Auto) (0.1 - 0.8 x10 3/uL) 0.44 Eos # (Auto) (0.0 - 0.2 x10 3/uL) 0.21 H Baso # (Auto) (0.0 - 0.2 x10 3/uL) 0.02 Abs Immat Gran (auto) (0.00 - 0.03 x10 3/uL) 0.02 Immature Gran % (0.0 - 2.0 %) 0.4 Nucleated RBC % (0 - 0 %) 0.0 Nucleated RBCs # (Man) (0.0 - 0.1 x10 3/uL) 0.00 Radiology data: Recent Impressions: RADIOLOGY - XR CHEST 1 V 11/14 7496 Report Impression - Status: SIGNED Entered: 11/14/2024 1103 IMPRESSION: Features of congestive heart failure with small left pleural effusion, similar to most recent prior. Impression By: Jj Wynne M.D. Diagnosis, Assessment Plan Hospital course to date: 11/10- POD #1 CABG. c/o post op pain. d/w CV surgery team and pain management consulted 11/11- POD #2 CABG. pain is much better controlled. possibly transfer out of CCU today. chest tubes out yesterday.lasix x1 today 11/12: POD #3. Hyperglycemia improved after adding Lantus 15 BID. 11/13: Hb 6.6 today. 2 units RBC transfused. HIT panel postive, Heme Onc consulted and RACHELLE panel sent. CXR shows diffsue congestive changes. Venous doppler negative. Consultants: cardiology, cardiovascular surgery Free Text DxA P Notes Free text DxA P notes: 54 yo F w PMHx of HTN, DM presented for evaluation of SOB and chest pain at [facility]. Patient was found to have NSTEMI. 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 Patient was transported to [facility] for CABG evaluation. Assessment and Plan Heparin Induced Thrombocytopenia -As per Hematology and CTS anticoagulation, will hold off on argatroban but watch closely for any thrombosis, platelet counts and await RACHELLE testing result. -Platelets 94>61>114 -HIT panel positive, pending RACHELLE -Heme-Onc consulted NSTEMI Multivessel Coronary Artery Disease - s/p CABG 11/09 - POD #5 - PRN lasix - On aspirin and plavix History of Essential Hypertension - Resume home BP meds when appropriate - Lopressor 12.5 BID Interstitial lung disease -PFTs done show FVC is 64% of predicted. FEV1 is 60% of predicted. Ratio is normal. History of Diabetes Mellitus Type-2, Uncontrolled - HGB A1c 8.0 - Blood sugar monitoring - Lantus 20 BID - Insulin SS History of Diabetic Neuropathy - Continue Gabapentin 1,200MG PO TID (verified) - Continue home Cymbalta History of Anxiety - Continue Seroquel 200MG PO bedtime Diet: Regular DVT ppx: Heparin gtt Pepcid FULL CODE Dispo: Will trend labs Leyda Trotter 11/15/24 0055: Attestations Teaching Physician Attestation F/U visit w/o resident: I personally saw the patient and reviewed the resident's note. I . . . agree with the resident's findings and plan. at 1421 at 0056 RPT #:[id number] END OF REPORT [facility] 2024-11-14 08:42:00 [facility] Pain Management Progress Note REPORT#:[id number] REPORT STATUS: Signed REPORT INITIALIZATION DATE:11/14/24 TIME: 841 PATIENT: YUNIER PRATT UNIT #: [id number] ROOM/BED: [place] [id number] : 72 AGE: 54 SEX: F ATTEND: Leyda Trotter MD ADM AUTHOR: Alejandro Cabrera NP REPT SERVICE DT/TIME: 11/14/24 0842 * ALL edits or amendments must be made on the electronic/computer document * Subjective Chief complaint: Patient seen and examined. Chart/MAR reviewed Patient states the pain continues to be noticeable, but is tolerable with the use of the currently available pain medications. No side effects are noted when the medications are taken. She requests one more day of the Robaxin IV. Patient being seen for chest pain, acute postoperative pain, diabetic polyneuropathy, muscle spasms, constipation/OIC Patient is still requiring medications to help with managing current problems Patient is requiring IV narcotics to help manage breakthrough pain No fever/chills, chest pain, orthopnea, nausea/vomiting, pruritus, or hallucinations. 14-point ROS undertaken and is unremarkable except as noted. Objective General VS/I O: Vital Signs Date Temp Pulse Resp B/P B/P Mean Pulse Ox FiO2 11/13-11/14 98.1-99.9 64-92 12-64 108-150/56-79 0.0-96.0 83-100 21 Last Documented: Result Date Time Pulse Ox 95 11/14 0815 B/P 132/70 11/14 0815 B/P Mean 0.0 11/14 0815 O2 Delivery Room air 11/14 08 Temp 99.0 11/14 0815 Pulse 84 11/14 0815 Resp 24 11/14 0815 FiO2 21 11/13 1053 O2 Flow Rate 0 11/11 1601 24 hour I O ending at 0700: 11/14 0700 11/13 1900 Intake Total 1220 1850.00 Output Total 660 1200 Balance 560 650.00 Intake, IV 250 450.00 Intake, Oral 720 1100 Intake, 250 300 Packed Cells Number 0 Bowel Movements Number Voids 3 Output, Urine 660 1200 PATIENT WEIGHT: Weight (lb): 162 Weight (oz): 7.69 Weight (kg): 73.700 Medications: Active Meds + DC'd Last 24 Hrs Bisacodyl (DULCOLAX) 10 MG ONCE ONE RECTAL (DC) Magnesium Hydroxide (MILK OF MAGNESIA) 30 ML ONCE ONE PO (DC) Insulin Glargine (Semglee) 20 UNIT BID SUBQ Sodium Chloride (SODIUM CHLORIDE 0.9%) 100 ML ASDIR PRN IV Methylnaltrexone Hazard (RELISTOR 12MG VIAL) 12 MG DAILY SUBQ (CKD) Ipratropium Hazard (ATROVENT) 500 MCG RTQ2H PRN PRN INH Cyanocobalamin (Vitamin B-12 500 mcg tab) 500 MCG DAILY PO Ferrous Sulfate (FERROUS SULFATE) 325 MG DAILY PO Insulin Glargine (Semglee) 15 UNIT BID SUBQ (DC) Quetiapine Fumarate (SeroqueL) 200 MG BEDTIME PO Gabapentin (NEURONTIN) 1,200 MG TID PO Insulin Human Lispro (Admelog) 0 AC HS SUBQ Hydromorphone HCl (DILAUDID) 1 MG Q4H PRN PRN IV Nicotine (NICODERM) 7 MG DAILY TRANSDERM (CKD) Methocarbamol (ROBAXIN) 1,000 MG Q8HR IV (DC) Amitriptyline HCl (ELAVIL) 25 MG BEDTIME PO Naloxone HCl (NARCAN) 0.4 MG Q2M PRN PRN IV Acetaminophen (TYLENOL EXTRA STRENGTH) 1,000 MG Q6H PO Hydromorphone HCl (DILAUDID) 4 MG Q4H PRN PRN PO Clopidogrel Bisulfate (Plavix) 75 MG DAILY PO Polyethylene Glycol (MIRALAX) 17 GM DAILY PO Pantoprazole (PROTONIX) 40 MG DAILY@0600 PO Aspirin (ASPIRIN) 81 MG DAILY PO Amiodarone HCl (CORDARONE) 200 MG TID PO Atorvastatin Calcium (LIPITOR) 40 MG 2100 PO Docusate Sodium (COLACE) 100 MG BID PO Metoprolol Tartrate (LOPRESSOR) 12.5 MG Q12HR PO Mupirocin (BACTROBAN 2% 22 GM OINTMENT) 1 APPLIC BID NASAL Sennosides (Senna Lax 8.6 MG TABLET) 17.2 MG BEDTIME PO Acetaminophen (TYLENOL) 650 MG Q4H PRN PRN RECTAL Dextrose/Water (DEXTROSE 10% IN WATER) 125 ML ASDIR PRN IV (CKD) Dextrose/Water (DEXTROSE 10% IN WATER) 250 ML ASDIR PRN IV (CKD) Glucagon (GLUCAGON) 1 MG ASDIR PRN IM Magnesium Sulfate (MAGNESIUM SULFATE 4GM/SWFI 100ML) 100 ML ASDIR PRN IV Magnesium Sulfate (MAGNESIUM SULFATE 2GM/SWFI 50ML) 50 ML ASDIR PRN IV Magnesium Sulfate/Dextrose (MAGNESIUM SULFATE 1GM/D5W 100ML) 100 ML ASDIR PRN IV Ondansetron HCl (ZOFRAN) 4 MG Q6H PRN PRN IV Potassium Chloride (KCL 20MEQ/SWFI 100ML) 100 ML ASDIR PRN IV Fluticasone Propionate (Flonase Nasal Baxter) 2 SPRAY DAILY NASAL (CKD) Physical Exam General appearance: alert, awake Head/eyes: atraumatic, EOMI, normocephalic, PERRLA ENT: normal nose Neck: no JVD, supple/no meningismus Cardiovascular: regular rate rhythm, normal heart sounds, dressing over sternum Respiratory: clear to auscultation, aerating well, symmetric expansion Abdomen: soft, non-tender, no distention Extremities: moves all, no edema, no clubbing, no cyanosis 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, oriented X 3, normal speech, CNII-XII grossly intact Skin: dry, normal turgor, warm Psychiatry: normal affect, normal mood Results Findings/data: Laboratory Tests: 11/13 11/13 11/13 11/13 2357 1918 1633 1135 Chemistry POC Glucose (70 - 110 MG/DL) 93 213 H 85 212 H Results: no new labs Diagnosis, Assessment Plan Free text A P: Patient is a 54 year old female who presents with the following: Chest pain, acute postoperative pain -S/P CABG on 11/09/24 -DC oxycodone 10mg q6h PRN -Acetaminophen 1000mg q6h -Dilaudid 4mg PO q4h PRN, pain scale 4-10 -Dilaudid 1mg IV q4h PRN, pain scale 7-10, second line (11/11) -stable Diabetic polyneuropathy -Amitriptyline 25mg at bedtime -Gabapentin 1200mg TID (11/11) -stable Muscle spams -DC Robaxin 500mg PO TID -Methocarbamol 1000mg IV q8h x 3 doses (11/14) -stable Insomnia -Takes seroquel 200mg QHS at home Constipation/OIC -Docusate 100mg BID -Miralax 17gm daily -Senna 17.2 mg at bedtime -Relistor 12 mg subq daily x 3 days (11/13) -Adjustment made Disposition: Rx: Pharmacy: [facility] Past medical history: DM, HTN, CAD Past surgical history: CABG, ALAA, PP, EVH Family history: Noncontributory Social history: denies drugs, alcohol, smoking Allergies: NKDA All pertinent diagnostics/labs from the last 24 hours and during the course of the admission were reviewed. Plan discussed with the patient and the nurse. All questions were answered. Patient will be monitored for deleterious side effects associated with opioids and sedative medications. Medications will be adjusted further clinical course. Risks versus benefits of opioid medications were reviewed to include, but not limited to respiratory depression, accidental overdose, altered mental status, sudden , constipation which could result in bowel obstruction, seizures, withdrawal, dependency/addiction, risk for falls. Goals: Daily pain control. Case reviewed and discussed with Dr. Keith who agrees with plan of care. [place] [employer] records reviewed: Total Prescriptions 6 Total Private Pay 0 Total Prescribers 4 Total Pharmacies 2 2024 2024 1 HYDROCODONE-ACETAMIN 5-325 MG 20.00 3 Pa Tho [id number] [facility] (1910) 0 33.33 MME Comm Ins [place] 2024 2024 1 TRAMADOL-ACETAMINOPHN 37.5-325 20.00 3 Pa Tho [id number] [facility] (5) 0 50.00 MME Comm Ins [place] 06/08/2023 06/08/2023 1 ACETAMINOPHEN-COD #3 TABLET 10.00 10 Ma Gopi [id number] [facility] ( 8726) 0 4.50 MME Comm Ins [place] [employer] (1910) [address] [facility] [id number] [facility] [id number]) [address] [facility] [address] at 1403 RPT #:[id number] END OF REPORT [facility] 2024-11-14 07:25:00 [facility] ([facility]) Cardiology Progress Note REPORT#:[id number] REPORT STATUS: Signed REPORT INITIALIZATION DATE:11/14/24 TIME: 724 PATIENT: YUNIER PRATT UNIT #: [id number] ROOM/BED: [place] [id number] : 72 AGE: 54 SEX: F ATTEND: Leyda Trotter MD ADM AUTHOR: Fay Fernandez REPT SERVICE DT/TIME: 11/14/24724 * ALL edits or amendments must be made on the electronic/computer document * Subjective Patient reports: No: complaints. Objective General VS/I O: 24 hour I O ending at 0700: 11/14 0700 11/13 1900 Intake Total 1220 1850.00 Output Total 660 1200 Balance 560 650.00 Intake, IV 250 450.00 Intake, Oral 720 1100 Intake, 250 300 Packed Cells Number 0 Bowel Movements Number Voids 3 Output, Urine 660 1200 Vital Signs Date Temp Pulse Resp B/P B/P Mean Pulse Ox FiO2 11/13-11/14 36.9-37.7 64-91 12-64 108-151/60-84 0.0-96.0 93-100 PATIENT WEIGHT: Weight (lb): 162 Weight (oz): 7.69 Weight (kg): 73.700 Medications: Active Meds + DC'd Last 24 Hrs Bisacodyl (DULCOLAX) 10 MG ONCE ONE RECTAL (DC) Magnesium Hydroxide (MILK OF MAGNESIA) 30 ML ONCE ONE PO (DC) Insulin Glargine (Semglee) 20 UNIT BID SUBQ Sodium Chloride (SODIUM CHLORIDE 0.9%) 100 ML ASDIR PRN IV Methylnaltrexone Hazard (RELISTOR 12MG VIAL) 12 MG DAILY SUBQ (CKD) Potassium Chloride (POTASSIUM CHLORIDE 20MEQ TAB.ER) 20 MEQ ONCE ONE PO (DC) Bisacodyl (DULCOLAX) 10 MG ONCE ONE RECTAL (DC) Furosemide (LASIX 20MG INJ) 20 MG ONCE ONE IV (DC) Magnesium Hydroxide (MILK OF MAGNESIA) 30 ML ONCE ONE PO (DC) Ipratropium Hazard (ATROVENT) 500 MCG RTQ2H PRN PRN INH Cyanocobalamin (Vitamin B-12 500 mcg tab) 500 MCG DAILY PO Ferrous Sulfate (FERROUS SULFATE) 325 MG DAILY PO Insulin Glargine (Semglee) 15 UNIT BID SUBQ (DC) Quetiapine Fumarate (SeroqueL) 200 MG BEDTIME PO Gabapentin (NEURONTIN) 1,200 MG TID PO Bisacodyl (DULCOLAX) 10 MG ONCE PRN RECTAL (DC) Insulin Human Lispro (Admelog) 0 AC HS SUBQ Hydromorphone HCl (DILAUDID) 1 MG Q4H PRN PRN IV Nicotine (NICODERM) 7 MG DAILY TRANSDERM (CKD) Methocarbamol (ROBAXIN) 1,000 MG Q8HR IV (DC) Amitriptyline HCl (ELAVIL) 25 MG BEDTIME PO Naloxone HCl (NARCAN) 0.4 MG Q2M PRN PRN IV Acetaminophen (TYLENOL EXTRA STRENGTH) 1,000 MG Q6H PO Hydromorphone HCl (DILAUDID) 4 MG Q4H PRN PRN PO Clopidogrel Bisulfate (Plavix) 75 MG DAILY PO Polyethylene Glycol (MIRALAX) 17 GM DAILY PO Pantoprazole (PROTONIX) 40 MG DAILY@0600 PO Aspirin (ASPIRIN) 81 MG DAILY PO Amiodarone HCl (CORDARONE) 200 MG TID PO Atorvastatin Calcium (LIPITOR) 40 MG 2100 PO Docusate Sodium (COLACE) 100 MG BID PO Metoprolol Tartrate (LOPRESSOR) 12.5 MG Q12HR PO Mupirocin (BACTROBAN 2% 22 GM OINTMENT) 1 APPLIC BID NASAL Sennosides (Senna Lax 8.6 MG TABLET) 17.2 MG BEDTIME PO Acetaminophen (TYLENOL) 650 MG Q4H PRN PRN RECTAL Dextrose/Water (DEXTROSE 10% IN WATER) 125 ML ASDIR PRN IV (CKD) Dextrose/Water (DEXTROSE 10% IN WATER) 250 ML ASDIR PRN IV (CKD) Glucagon (GLUCAGON) 1 MG ASDIR PRN IM Magnesium Sulfate (MAGNESIUM SULFATE 4GM/SWFI 100ML) 100 ML ASDIR PRN IV Magnesium Sulfate (MAGNESIUM SULFATE 2GM/SWFI 50ML) 50 ML ASDIR PRN IV Magnesium Sulfate/Dextrose (MAGNESIUM SULFATE 1GM/D5W 100ML) 100 ML ASDIR PRN IV Ondansetron HCl (ZOFRAN) 4 MG Q6H PRN PRN IV Potassium Chloride (KCL 20MEQ/SWFI 100ML) 100 ML ASDIR PRN IV Fluticasone Propionate (Flonase Nasal Baxter) 2 SPRAY DAILY NASAL (CKD) Physical Exam General appearance: alert, awake, oriented, no acute distress Neck: non-tender, no JVD Cardiovascular: CV assessment: regular rate and rhythm Respiratory: decreased breath sounds, shortness of breath, mild SOB Abdomen: soft, non-tender, normal bowel sounds, no distention Genitourinary: no flank pain, no urinary catheter Lower extremity: LE assessment: no edema Musculoskeletal: normal inspection 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, oriented X 3, normal speech Skin: dry, intact, normal color Psychiatry: normal affect, normal judgment/insight, normal mood Results Findings/Data: Laboratory Tests 11/13 11/13 11/13 11/13 11/13 2357 1918 1633 1135 0758 Chemistry POC Glucose (70 - 110 MG/DL) 93 213 H 85 212 H 287 H Radiology data: Recent Impressions: RADIOLOGY - XR CHEST 1 V 11/13 0755 Report Impression - Status: SIGNED Entered: 11/13/2024 1013 IMPRESSION: Cardiomegaly with diffuse congestive changes and small left pleural effusion. Impression By: Jack - Chastity Hunter M.D. Results: labs reviewed, vital signs reviewed, rhythm personally rev'd Telemetry Interpretation: NSR Diagnosis, Assessment Plan Plan discussed with: patient, collaborating MD, nurse Free Text DxA P Notes Free Text DxA P Notes: 54 YO patient with MH of HTN, DM, neuropathy, tobacco abuse who presented at [facility] with shortness of breath and chest pain. She was ruled for NSTEMI, had LHC which revealed multivessed CAD. She is transferred to [facility] for CABG evaluation. 1. NSTEMI/Multivessel CAD * Echo LVEF 50-54%, G1DD, mild MR * Plavix ASA, BB, statin * S/p CABG (ASH-LAD, SVG-OM1, SVG-OM2, SVG-Diag, SVG-PDA) and ALAA * given 1 dose of IV Lasix 40 mg 2. Hypertension * BP stable, continue BB. 3. Diabetes mellitus * A1c 8 * manage per CTS 4. Acute Diastolic CHF, present to admission * LVEF 50-54% * 5. Positive heparin-induced thrombocytopenia * Platelets 61K->114K * Hematology following 6. Postoperative anemia * Hemoglobin 6.6-> 9.9 * s/p 2 units PRBC 11/[address] Lindquist. at 1845 RPT #:[id number] END OF REPORT [facility] 2024-11-13 13:11:00 [facility] ([facility]) Tereso/Oncology Consult Note REPORT#:[id number] REPORT STATUS: Signed REPORT INITIALIZATION DATE:11/13/24 TIME: 1311 PATIENT: YUNIER PRATT UNIT #: [id number] ROOM/BED: [place] [id number] : 72 AGE: 54 SEX: F ATTEND: Leyda Trotter MD ADM AUTHOR: Huey Michelle MD REPT SERVICE DT/TIME: 11/13/24 1311 * ALL edits or amendments must be made on the electronic/computer document * History of Present Illness Requesting clinician: DR Ross Reason for consult: Thrombocytopenia and positive DECLAN Chief complaint: admitted for NSTEMI and multivessel CAD PCP: PCP: No Primary or Family Physician HPI: This is a 54-year-old female with a past medical history of hypertension, diabetes on insulin, tobacco use presented to [facility] with complaints of chest pain. 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 Patient was transferred to [facility] for further evaluation and workup of multivessel CAD. On 11/09/24 patient underwent CABG x 5. She is on DAPT plavix. She did receive heparin gtt on 11/09/24. Admission labs: CBC on 11/09/2024 showed a platelet count of 159k postsurgery day 1 platelet counts trended down to 94K and then subsequently postop day 3 is at 61K today 11/14/2023. Hemoglobin dropped from 9 presurgery to 6.6 on postop day 3 patient is ordered 2 units packed RBC has not received any yet. HIT antibody was sent due to the platelet trend down and is positive on 11/12/2024. Serotonin release assay is pending. Venous Doppler ultrasound lower extremity negative for DVT. Hematology is consulted History - Adult longitudinal Past medical history: Reports: COPD, Coronary artery disease, Diabetes mellitus, Hypertension. Additional medical history: 1. DM 2. HTN 3. neuropathy Alcohol use: Denies EtOH use Drug use: Denies recreational drugs Smoking status for patients 13 years old or older: Current every day smoker Date last smoked: 11/07/24 Packs per day: 0.5 Pack years: 0 Medications: Home Medications: Medication Dose/Rte/Freq Days Qty Entered Last Max Daily Dose Reviewed DULoxetine (CYMBALTA) 20 MG PO DAILY 11/08/24 11/08/24 Strength: 20 MG CAP. 2976 2389 FUROSEMIDE (LASIX) 40 MG IV BID 11/08/24 11/08/24 Strength: 10 MG/ML VIAL 305 309 NICOTINE 21 MG TRANSDERM 11/08/24 11/08/24 (NICODERM 21 MG) DAILY 309 309 Strength: 21 MG/24 HOUR PATCH GABAPENTIN (NEURONTIN) 600 MG PO TID 2 11/08/24 11/10/24 Strength: 300 MG CAP 306 2037 Current Hospital Medications: Autonomic Drugs Sig/Clarke Start time Last Medication Dose Route Stop Time Status Admin Ipratropium Hazard 500 MCG RTQ2H PRN PRN 11/12 1558 AC 11/13 (ATROVENT) INH 02/10 1557 0914 Nicotine 7 MG DAILY 11/11 0900 CKD 11/13 (NICODERM) TRANSDERM 11/17 0901 0827 Methocarbamol 1,000 MG Q8HR 11/10 2200 AC 11/13 (ROBAXIN) IV 11/13 2159 0547 Ipratropium Hazard 500 MCG RTQ4H 11/09 1700 DC 11/12 (ATROVENT) INH 11/12 1500 1208 Epinephrine 4 MG ASDIR 11/09 1600 DC (ADRENALIN CHLORIDE) IV 02/07 1559 Dextrose/Water 246 ML (DEXTROSE 5% WATER) Norepinephrine/ 250 ML TITRATE 11/09 1600 DC Dextrose IV 02/07 1559 (Norepinephrine 8 MG/ D5W 250 mL) Blood Formation,Coagulation Sig/Clarke Start time Last Medication Dose Route Stop Time Status Admin Ferrous Sulfate 325 MG DAILY 11/12 09 AC (FERROUS SULFATE) PO 02/10 0859 Clopidogrel Bisulfate 75 MG DAILY 11/10 09 AC 11/13 (Plavix) PO 02/08 0859 0826 Cardiovascular Drugs Sig/Clarke Start time Last Medication Dose Route Stop Time Status Admin Amiodarone HCl 200 MG TID 11/09 2099 AC 11/13 (CORDARONE) PO 02/07 2059 0826 Atorvastatin Calcium 40 MG 2100 11/09 2099 AC 11/12 (LIPITOR) PO 12/09 Metoprolol Tartrate 12.5 MG Q12HR 11/09 2099 AC 11/13 (LOPRESSOR) PO 02/07 2059 0826 Nitroglycerin/ 250 ML ASDIR 11/09 1600 DC Dextrose IV 02/07 1559 (NITROGLYCERIN 50,000MCG/D5W 250ML) Central Nervous System Agents Sig/Clarke Start time Last Medication Dose Route Stop Time Status Admin Quetiapine Fumarate 200 MG BEDTIME 11/11 2100 AC 11/12 (SeroqueL) PO 02/09 Gabapentin 1,200 MG TID 11/11 1500 AC 11/13 (NEURONTIN) PO 02/09 1459 0826 Hydromorphone HCl 1 MG Q4H PRN PRN 11/11 1045 AC 11/13 (DILAUDID) IV 12/12 1300 1037 Amitriptyline HCl 25 MG BEDTIME 11/10 2100 AC 11/12 (ELAVIL) PO 02/08 Naloxone HCl 0.4 MG Q2M PRN PRN 11/10 1700 AC (NARCAN) IV 12/10 1659 Acetaminophen 1,000 MG Q6H 11/10 1600 AC 11/13 (TYLENOL EXTRA PO 02/07 1559 1037 STRENGTH) Hydromorphone HCl 4 MG Q4H PRN PRN 11/10 1545 AC 11/13 (DILAUDID) PO 12/11 1300 0824 Aspirin 81 MG DAILY 11/09 2158 AC 11/13 (ASPIRIN) PO 02/07 215 0826 Acetaminophen 650 MG Q4H PRN PRN 11/09 1600 AC (TYLENOL) RECTAL 02/07 1559 Magnesium Sulfate 100 ML ASDIR PRN 11/09 1600 AC (MAGNESIUM SULFATE IV 02/07 1559 4GM/SWFI 100ML) Magnesium Sulfate 50 ML ASDIR PRN 11/09 1600 AC 11/12 (MAGNESIUM SULFATE IV 02/07 155 0631 2GM/SWFI 50ML) Magnesium Sulfate/ 100 ML ASDIR PRN 11/09 1600 AC 11/10 Dextrose IV 02/07 1559 0353 (MAGNESIUM SULFATE 1GM/D5W 100ML) Electrolytic, Caloric, And Prosper Sig/Clarke Start time Last Medication Dose Route Stop Time Status Admin Sodium Chloride 100 ML ASDIR PRN 11/13 1130 AC (SODIUM CHLORIDE IV 11/15 1129 0.9%) Potassium Chloride 20 MEQ ONCE ONE 11/13 0800 DC 11/13 (POTASSIUM CHLORIDE PO 11/13 0801 0826 20MEQ TAB.ER) Furosemide 20 MG ONCE ONE 11/13 0745 DC 11/13 (LASIX 20MG INJ) IV 11/13 0746 0825 Furosemide 20 MG ONCE ONE 11/12 1815 DC 11/12 (LASIX 20MG INJ) IV 11/12 Calcium Chloride 1 GM ASDIR PRN 11/09 1600 DC (CALCIUM CHLORIDE) IV 02/07 1559 Dextrose/Water 125 ML ASDIR PRN 11/09 1600 CKD (DEXTROSE 10% IN IV 02/07 155 WATER) Dextrose/Water 250 ML ASDIR PRN 11/09 1600 CKD (DEXTROSE 10% IN IV 02/07 155 WATER) Potassium Chloride 100 ML ASDIR PRN 11/09 1600 AC (KCL 20MEQ/SWFI IV 02/07 1559 100ML) Sodium Bicarbonate 50 MEQ ASDIR PRN 11/09 1600 DC (SODIUM BICARBONATE) IV 02/07 1559 Sodium Chloride 250 ML Q24H 11/09 1600 DC (SODIUM CHLORIDE IV 02/07 1559 0.9%) Eye, Ear, Nose And Throat (Een Sig/Clarke Start time Last Medication Dose Route Stop Time Status Admin Fluticasone 2 SPRAY DAILY 11/09 0900 CKD 11/13 Propionate NASAL 12/09 0859 1038 (Flonase Nasal Baxter) Gastrointestinal Drugs Sig/Clarke Start time Last Medication Dose Route Stop Time Status Admin Methylnaltrexone 12 MG DAILY 11/13 0915 CKD 11/13 Hazard SUBQ 11/15 0901 1038 (RELISTOR 12MG VIAL) Bisacodyl 10 MG ONCE ONE 11/13 0745 DC 11/13 (DULCOLAX) RECTAL 11/13 0746 0825 Magnesium Hydroxide 30 ML ONCE ONE 11/13 0745 DC 11/13 (MILK OF MAGNESIA) PO 11/13 0746 0825 Bisacodyl 10 MG ONCE PRN 11/11 1200 DC 11/11 (DULCOLAX) RECTAL 02/09 1159 1448 Polyethylene Glycol 17 GM DAILY 11/10 09 AC 11/13 (MIRALAX) PO 02/08 0859 0825 Pantoprazole 40 MG DAILY@0600 11/10 0600 AC 11/13 (PROTONIX) PO 02/08 0559 0547 Docusate Sodium 100 MG BID 11/09 2100 AC 11/13 (COLACE) PO 02/07 2059 08 Sennosides 17.2 MG BEDTIME 11/09 2099 AC 11/12 (Senna Lax 8.6 MG PO 02/07 TABLET) Ondansetron HCl 4 MG Q6H PRN PRN 11/09 1600 AC (ZOFRAN) IV 02/07 1559 Hormones And Synthetic Substit Sig/Clarke Start time Last Medication Dose Route Stop Time Status Admin Insulin Glargine 20 UNIT BID 11/13 2100 AC (Semglee) SUBQ 02/11 205 Insulin Glargine 15 UNIT BID 11/11 2100 DC 11/13 (Semglee) SUBQ 02/09 2059 0824 Insulin Human Lispro 0 AC HS 11/11 1130 AC 11/13 (Admelog) SUBQ 02/09 1129 1258 Glucagon 1 MG ASDIR PRN 11/09 1600 AC (GLUCAGON) IM 02/07 1559 Skin And Mucous Membrane Agent Sig/Clarke Start time Last Medication Dose Route Stop Time Status Admin Mupirocin 1 APPLIC BID 11/09 2100 AC 11/13 (BACTROBAN 2% 22 GM NASAL 11/14 0901 1258 OINTMENT) Vitamins Sig/Clarke Start time Last Medication Dose Route Stop Time Status Admin Cyanocobalamin 500 MCG DAILY 11/12 0900 AC 11/13 (Vitamin B-12 500 PO 02/10 0859 0826 mcg tab) Allergies: Coded Allergies: heparin (BLOOD CLOT 11/13/24) HIT (+) Ambulatory status: Independent Objective Physical Exam VS: Vital Signs Date Temp Pulse Resp B/P B/P Mean Pulse Ox FiO2 11/12-11/13 36.6-37.6 77-94 16-32 107-130/58-66 0.0-88 90-97 21 Last Documented: Result Date Time Pulse Ox 91 11/13 1140 B/P 110/66 11/13 1140 B/P Mean 80.8 11/13 1140 Temp 37.0 11/13 1140 Pulse 78 11/13 1140 Resp 18 11/13 1140 FiO2 21 11/13 1053 O2 Delivery Room air 11/13 1053 O2 Flow Rate 0 11/11 1601 PATIENT WEIGHT: Weight (lb): 162 Weight (oz): 7.69 Weight (kg): 73.700 General appearance: alert, awake, oriented HEENT: pupils reactive to light Cardiovascular: regular rate and rhythm, normal heart sounds Respiratory: aerating well, symmetric expansion Abdomen: non-tender, soft Extremities: moves all, no edema 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, oriented X 3 Results Findings/Data: Laboratory Tests 11/13/24 0501: [Embedded Image Not Available] Laboratory Tests 11/13 11/13 11/13 11/12 11/12 1135 0758 0501 2032 1557 Chemistry Sodium (134 - 147 mEq/L) 135 Potassium (3.4 - 5.0 mEq/L) 3.9 Chloride (100 - 108 mEq/L) 106 Carbon Dioxide (21 - 33 mEq/l) 26 Anion Gap (0 - 20) 7 BUN (7 - 25 mg/dL) 12 Creatinine (0.6 - 1.3 mg/dL) 0.6 Glomerular Filtr Rate (90 - 95) 107.9 H Glucose (77 - 141 mg/dL) 324 H POC Glucose (70 - 110 MG/DL) 212 H 287 H 229 H 141 H Calcium (8.0 - 10.5 mg/dL) 8.4 Magnesium (1.6 - 2.6 mg/dL) 1.74 Laboratory Tests 11/12 1547 Coagulation Hep-Rosalia Thrombocytopen (()) POSITIVE *A Laboratory Tests 11/13 0501 Hematology WBC (4.5 - 11.0 x10 3/uL) 4.0 L RBC (3.54 - 5.02 x10 6/uL) 2.70 L Hgb (11.0 - 15.0 g/dL) 6.6 L Hct (33.0 - 45.0 %) 22.1 L MCV (81.0 - 99.0 fL) 81.9 MCH (27.0 - 33.0 pg) 24.4 L MCHC (33.0 - 37.0 g/dL) 29.9 L RDW (11.5 - 14.5 %) 17.2 H Plt Count (150 - 400 x10 3/uL) 61 L MPV (7.0 - 9.0 fL) 12.5 H Neut % (Auto) (56.0 - 77.0 %) 67.1 Lymph % (Auto) (14.0 - 32.0 %) 18.7 Brule % (Auto) (4.8 - 9.0 %) 10.6 H Eos % (Auto) (0.3 - 3.7 %) 2.8 Baso % (Auto) (0.0 - 2.0 %) 0.3 Neut # (Auto) (2.0 - 7.6 x10 3/uL) 2.66 Lymph # (Auto) (1.0 - 3.8 x10 3/uL) 0.74 L Brule # (Auto) (0.1 - 0.8 x10 3/uL) 0.42 Eos # (Auto) (0.0 - 0.2 x10 3/uL) 0.11 Baso # (Auto) (0.0 - 0.2 x10 3/uL) 0.01 Abs Immat Gran (auto) (0.00 - 0.03 x10 3/uL) 0.02 Immature Gran % (0.0 - 2.0 %) 0.5 Nucleated RBC % (0 - 0 %) 0.0 Nucleated RBCs # (Man) (0.0 - 0.1 x10 3/uL) 0.00 Immature Plt Fraction (0.9 - 11.2 %) 10.9 Radiology data: Recent Impressions: ULTRASOUND - DUP VEIN CORNELL 11/12 2056 Addendum Impression - Status: SIGNED Entered: 11/13/2024 1119 IMPRESSION: No evidence of deep venous thrombosis in the bilateral lower extremities. LOCATION: B2 Impression By: Jack Hunter M.D. Report Impression - Status: SIGNED Entered: 11/12/2024 2159 IMPRESSION: Normal Venous Doppler ultrasound of the left lower extremity. Impression By: Janey Pulido M.D. RADIOLOGY - XR CHEST 1 V 11/13 4415 Report Impression - Status: SIGNED Entered: 11/13/2024 1013 IMPRESSION: Cardiomegaly with diffuse congestive changes and small left pleural effusion. Impression By: Jack Hunter M.D. Diagnosis, Assessment Plan Consultants: cardiology, cardiovascular surgery Free Text DxA P Notes Free Text DxA P Notes: 1. Thrombocytopenia 2. Positive DECLAN antibody test 3. s/p CABG x5 on 11/09/24 POD #3 4. Anemia post surgery acute on chronic Per MICA ([place] [employer]) guidelines of diagnosis and management of DECLAN This patient has a low clinical probability of DECLAN based on 4Ts scoring - Thrombocytopenia >50% but timing less than 4 days from exposure, and no thrombosis. Other possible causes of thrombocytopenia exist (related to consumption and blood loss post surgery as- HGB dropped as well). she is at 3 point score which is low probability. Laboratory testing DECLAN positive by EISA but RACHELLE is pending which is more specific test. 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 This could be false positive but given positive test until RACHELLE assay is available will consider non heparin anticoagulant argatroban to prevent future thrombosis and ischemia risk. If RACHELLE is negative can dc argatroban. If RACHELLE is positive would transition to DOAC such as eliquis. This patient has a high risk of bleeding as post op state and HGB 6.6. low HIT probability. Hence will also check with [facility] if they feel strongly against starting argatroban weighing risk and benefit will hold off on argatroban but watch closely for any thrombosis , platelet counts and await RACHELLE testing. at 2305 RPT #:[id number] END OF REPORT [facility] 2024-11-13 09:13:00 [facility] ([facility] Pain Management Progress Note REPORT#:[id number] REPORT STATUS: Signed REPORT INITIALIZATION DATE:11/13/24 TIME: 912 PATIENT: YUNIER PRATT UNIT #: [id number] ROOM/BED: [place] [id number] : 72 AGE: 54 SEX: F ATTEND: Leyda Trotter MD ADM AUTHOR: Alejandro Cabrera NP REPT SERVICE DT/TIME: 11/13/24 0913 * ALL edits or amendments must be made on the electronic/computer document * Subjective Chief complaint: Patient seen and examined. Chart/MAR reviewed Patient transferred out of ICU. Pain is tolerable. Passing gas, no BM. Will address this. Patient being seen for chest pain, acute postoperative pain, diabetic polyneuropathy, muscle spasms, constipation/OIC Patient is still requiring medications to help with managing current problems Patient is requiring IV narcotics to help manage breakthrough pain No fever/chills, chest pain, orthopnea, nausea/vomiting, pruritus, or hallucinations. 14-point ROS undertaken and is unremarkable except as noted. Objective General VS/I O: Vital Signs Date Temp Pulse Resp B/P B/P Mean Pulse Ox FiO2 11/12-11/13 97.9-99.7 77-94 16-32 105-130/58-63 0.0-88 90-100 Last Documented: Result Date Time Pulse Ox 97 11/13 0759 B/P 107/63 11/13 0759 B/P Mean 0.0 11/13 0759 Temp 97.9 11/13 0759 Pulse 79 11/13 0759 Resp 16 11/13 0759 O2 Delivery Room air 11/12 1558 O2 Flow Rate 0 11/11 1601 FiO2 36 11/10 0338 24 hour I O ending at 0700: 11/13 0700 11/12 1900 Intake Total 480 Output Total 400 Balance 80 Intake, Oral 480 Number Voids 3 Output, Urine 400 PATIENT WEIGHT: Weight (lb): 162 Weight (oz): 7.69 Weight (kg): 73.700 Medications: Active Meds + DC'd Last 24 Hrs Potassium Chloride (POTASSIUM CHLORIDE 20MEQ TAB.ER) 20 MEQ ONCE ONE PO (DC) Bisacodyl (DULCOLAX) 10 MG ONCE ONE RECTAL (DC) Furosemide (LASIX 20MG INJ) 20 MG ONCE ONE IV (DC) Magnesium Hydroxide (MILK OF MAGNESIA) 30 ML ONCE ONE PO (DC) Furosemide (LASIX 20MG INJ) 20 MG ONCE ONE IV (DC) Ipratropium Hazard (ATROVENT) 500 MCG RTQ2H PRN PRN INH Cyanocobalamin (Vitamin B-12 500 mcg tab) 500 MCG DAILY PO Ferrous Sulfate (FERROUS SULFATE) 325 MG DAILY PO Insulin Glargine (Semglee) 15 UNIT BID SUBQ Quetiapine Fumarate (SeroqueL) 200 MG BEDTIME PO Gabapentin (NEURONTIN) 1,200 MG TID PO Bisacodyl (DULCOLAX) 10 MG ONCE PRN RECTAL (DC) Insulin Human Lispro (Admelog) 0 AC HS SUBQ Hydromorphone HCl (DILAUDID) 1 MG Q4H PRN PRN IV Nicotine (NICODERM) 7 MG DAILY TRANSDERM (CKD) Methocarbamol (ROBAXIN) 1,000 MG Q8HR IV Amitriptyline HCl (ELAVIL) 25 MG BEDTIME PO Naloxone HCl (NARCAN) 0.4 MG Q2M PRN PRN IV Acetaminophen (TYLENOL EXTRA STRENGTH) 1,000 MG Q6H PO Hydromorphone HCl (DILAUDID) 4 MG Q4H PRN PRN PO Clopidogrel Bisulfate (Plavix) 75 MG DAILY PO Polyethylene Glycol (MIRALAX) 17 GM DAILY PO Pantoprazole (PROTONIX) 40 MG DAILY@0600 PO Aspirin (ASPIRIN) 81 MG DAILY PO Amiodarone HCl (CORDARONE) 200 MG TID PO Atorvastatin Calcium (LIPITOR) 40 MG 2100 PO Docusate Sodium (COLACE) 100 MG BID PO Metoprolol Tartrate (LOPRESSOR) 12.5 MG Q12HR PO Mupirocin (BACTROBAN 2% 22 GM OINTMENT) 1 APPLIC BID NASAL Sennosides (Senna Lax 8.6 MG TABLET) 17.2 MG BEDTIME PO Ipratropium Hazard (ATROVENT) 500 MCG RTQ4H INH (DC) Acetaminophen (TYLENOL) 650 MG Q4H PRN PRN RECTAL Calcium Chloride (CALCIUM CHLORIDE) 1 GM ASDIR PRN IV (DC) Dextrose/Water (DEXTROSE 10% IN WATER) 125 ML ASDIR PRN IV (CKD) Dextrose/Water (DEXTROSE 10% IN WATER) 250 ML ASDIR PRN IV (CKD) Epinephrine (ADRENALIN CHLORIDE) 4 MG ASDIR IV (DC) Dextrose/Water (DEXTROSE 5% WATER) 246 ML Glucagon (GLUCAGON) 1 MG ASDIR PRN IM Magnesium Sulfate (MAGNESIUM SULFATE 4GM/SWFI 100ML) 100 ML ASDIR PRN IV Magnesium Sulfate (MAGNESIUM SULFATE 2GM/SWFI 50ML) 50 ML ASDIR PRN IV Magnesium Sulfate/Dextrose (MAGNESIUM SULFATE 1GM/D5W 100ML) 100 ML ASDIR PRN IV Nitroglycerin/Dextrose (NITROGLYCERIN 50,000MCG/D5W 250ML) 250 ML ASDIR IV (DC) Norepinephrine/Dextrose (Norepinephrine 8 MG/D5W 250 mL) 250 ML TITRATE IV (DC) Ondansetron HCl (ZOFRAN) 4 MG Q6H PRN PRN IV Potassium Chloride (KCL 20MEQ/SWFI 100ML) 100 ML ASDIR PRN IV Sodium Bicarbonate (SODIUM BICARBONATE) 50 MEQ ASDIR PRN IV (DC) Sodium Chloride (SODIUM CHLORIDE 0.9%) 250 ML Q24H IV (DC) Fluticasone Propionate (Flonase Nasal Baxter) 2 SPRAY DAILY NASAL (CKD) Physical Exam General appearance: alert, awake, oriented, conversational Head/eyes: atraumatic, EOMI, normocephalic, PERRLA ENT: moist mucosal membranes Neck: no JVD, supple/no meningismus Cardiovascular: regular rate rhythm, normal heart sounds, dressing over sternum Respiratory: clear to auscultation, aerating well, symmetric expansion Abdomen: soft, non-tender, no distention Extremities: moves all, no edema, no clubbing, no cyanosis 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, oriented X 3, normal speech, CNII-XII grossly intact Skin: dry, normal turgor, warm Psychiatry: normal affect, normal judgment/insight, normal mood Diagnosis, Assessment Plan Free text A P: Patient is a 54 year old female who presents with the following: Chest pain, acute postoperative pain -S/P CABG on 11/09/24 -DC oxycodone 10mg q6h PRN -Acetaminophen 1000mg q6h -Dilaudid 4mg PO q4h PRN, pain scale 4-10 -Dilaudid 1mg IV q4h PRN, pain scale 7-10, second line (11/11) -stable Diabetic polyneuropathy -Amitriptyline 25mg at bedtime -Gabapentin 1200mg TID (11/11) -stable Muscle spams -DC Robaxin 500mg PO TID -Methocarbamol 1000mg IV q8h -stable Insomnia -Takes seroquel 200mg QHS at home Constipation/OIC -Docusate 100mg BID -Miralax 17gm daily -Senna 17.2 mg at bedtime -Relistor 12 mg subq daily x 3 days (11/13) -Adjustment made Disposition: Rx: Pharmacy: [facility] Past medical history: DM, HTN, CAD Past surgical history: CABG, ALAA, PP, EVH Family history: NC Social history: denies drugs, alcohol, smoking Allergies: NKDA All pertinent diagnostics/labs from the last 24 hours and during the course of the admission were reviewed. Plan discussed with the patient and the nurse. All questions were answered. Patient will be monitored for deleterious side effects associated with opioids and sedative medications. Medications will be adjusted further clinical course. Risks versus benefits of opioid medications were reviewed to include, but not limited to respiratory depression, accidental overdose, altered mental status, sudden , constipation which could result in bowel obstruction, seizures, withdrawal, dependency/addiction, risk for falls. Goals: Daily pain control. Case reviewed and discussed with Dr. Keith who agrees with plan of care. [place] [employer] records reviewed: Total Prescriptions 6 Total Private Pay 0 Total Prescribers 4 Total Pharmacies 2 2024 2024 1 HYDROCODONE-ACETAMIN 5-325 MG 20.00 3 Pa Tho [id number] [facility] (1910) 0 33.33 M[facility] Comm [place] 2024 2024 1 TRAMADOL-ACETAMINOPHN 37.5-325 20.00 3 Pa Tho [id number] [facility] (8045) 0 50.00 M[facility] Comm [facility] [place] 06/08/2023 06/08/2023 1 ACETAMINOPHEN-COD #3 TABLET 10.00 10 Ma Gopi [id number] [facility] ( 4042) 0 4.50 MME Comm Ins [place] [facility] (1910) [address] [place] [address] [id number] ([id number]) [address] [facility] [id number] at 0926 RPT #:[id number] END OF REPORT [facility] 2024-11-13 08:50:00 [facility] Hospitalist Progress Note REPORT#:[id number] REPORT STATUS: Signed REPORT INITIALIZATION DATE:11/13/24 TIME: 0850 PATIENT: YUNIER PRATT UNIT #: [id number] ROOM/BED: [place] [id number] : 72 AGE: 54 SEX: F ATTEND: Leyda Trotter MD ADM AUTHOR: Dayanara Man MD R1 REPT SERVICE DT/TIME: 11/13/24 0850 * ALL edits or amendments must be made on the electronic/computer document * Dayanara Man 11/13/24 0850: Subjective Chief complaint: No complaints Objective General VS/I O: Vital Signs: Date Time Temp Pulse Resp B/P B/P Pulse O2 O2 Flow FiO2 Mean Ox Delivery Rate 11/13 1140 37.0 78 18 110/66 80.8 91 11/13 1053 97 Room air 21 11/13 0759 36.6 79 16 107/63 0.0 97 11/13 0353 37.0 77 19 111/61 0.0 94 11/13 0040 78 18 93 11/12 2335 79 25 107/59 78 96 11/12 2335 37.5 79 21 107/59 0.0 95 11/12 2300 82 26 90 11/12 2200 94 29 95 11/12 2100 93 27 94 11/12 2000 91 32 94 11/12 1913 92 28 130/62 88 95 11/12 1913 37.6 92 29 130/62 0.0 94 11/12 1900 91 24 96 11/12 1558 37.3 87 20 113/58 0.0 94 Room air 11/12 1513 86 26 113/58 79 97 24 hour I O ending at 0700: 11/13 0700 11/12 1900 Intake Total 480 Output Total 400 Balance 80 Intake, Oral 480 Number Voids 3 Output, Urine 400 PATIENT WEIGHT: Weight (lb): 162 Weight (oz): 7.69 Weight (kg): 73.700 Medications: Active Meds + DC'd Last 24 Hrs Insulin Glargine (Semglee) 20 UNIT BID SUBQ Sodium Chloride (SODIUM CHLORIDE 0.9%) 100 ML ASDIR PRN IV Methylnaltrexone Hazard (RELISTOR 12MG VIAL) 12 MG DAILY SUBQ (CKD) Potassium Chloride (POTASSIUM CHLORIDE 20MEQ TAB.ER) 20 MEQ ONCE ONE PO (DC) Bisacodyl (DULCOLAX) 10 MG ONCE ONE RECTAL (DC) Furosemide (LASIX 20MG INJ) 20 MG ONCE ONE IV (DC) Magnesium Hydroxide (MILK OF MAGNESIA) 30 ML ONCE ONE PO (DC) Furosemide (LASIX 20MG INJ) 20 MG ONCE ONE IV (DC) Ipratropium Hazard (ATROVENT) 500 MCG RTQ2H PRN PRN INH Cyanocobalamin (Vitamin B-12 500 mcg tab) 500 MCG DAILY PO Ferrous Sulfate (FERROUS SULFATE) 325 MG DAILY PO Insulin Glargine (Semglee) 15 UNIT BID SUBQ (DC) Quetiapine Fumarate (SeroqueL) 200 MG BEDTIME PO Gabapentin (NEURONTIN) 1,200 MG TID PO Bisacodyl (DULCOLAX) 10 MG ONCE PRN RECTAL (DC) Insulin Human Lispro (Admelog) 0 AC HS SUBQ Hydromorphone HCl (DILAUDID) 1 MG Q4H PRN PRN IV Nicotine (NICODERM) 7 MG DAILY TRANSDERM (CKD) Methocarbamol (ROBAXIN) 1,000 MG Q8HR IV Amitriptyline HCl (ELAVIL) 25 MG BEDTIME PO Naloxone HCl (NARCAN) 0.4 MG Q2M PRN PRN IV Acetaminophen (TYLENOL EXTRA STRENGTH) 1,000 MG Q6H PO Hydromorphone HCl (DILAUDID) 4 MG Q4H PRN PRN PO Clopidogrel Bisulfate (Plavix) 75 MG DAILY PO Polyethylene Glycol (MIRALAX) 17 GM DAILY PO Pantoprazole (PROTONIX) 40 MG DAILY@0600 PO Aspirin (ASPIRIN) 81 MG DAILY PO Amiodarone HCl (CORDARONE) 200 MG TID PO Atorvastatin Calcium (LIPITOR) 40 MG 2100 PO Docusate Sodium (COLACE) 100 MG BID PO Metoprolol Tartrate (LOPRESSOR) 12.5 MG Q12HR PO Mupirocin (BACTROBAN 2% 22 GM OINTMENT) 1 APPLIC BID NASAL Sennosides (Senna Lax 8.6 MG TABLET) 17.2 MG BEDTIME PO Ipratropium Hazard (ATROVENT) 500 MCG RTQ4H INH (DC) Acetaminophen (TYLENOL) 650 MG Q4H PRN PRN RECTAL Calcium Chloride (CALCIUM CHLORIDE) 1 GM ASDIR PRN IV (DC) Dextrose/Water (DEXTROSE 10% IN WATER) 125 ML ASDIR PRN IV (CKD) Dextrose/Water (DEXTROSE 10% IN WATER) 250 ML ASDIR PRN IV (CKD) Epinephrine (ADRENALIN CHLORIDE) 4 MG ASDIR IV (DC) Dextrose/Water (DEXTROSE 5% WATER) 246 ML Glucagon (GLUCAGON) 1 MG ASDIR PRN IM Magnesium Sulfate (MAGNESIUM SULFATE 4GM/SWFI 100ML) 100 ML ASDIR PRN IV Magnesium Sulfate (MAGNESIUM SULFATE 2GM/SWFI 50ML) 50 ML ASDIR PRN IV Magnesium Sulfate/Dextrose (MAGNESIUM SULFATE 1GM/D5W 100ML) 100 ML ASDIR PRN IV Nitroglycerin/Dextrose (NITROGLYCERIN 50,000MCG/D5W 250ML) 250 ML ASDIR IV (DC) Norepinephrine/Dextrose (Norepinephrine 8 MG/D5W 250 mL) 250 ML TITRATE IV (DC) Ondansetron HCl (ZOFRAN) 4 MG Q6H PRN PRN IV Potassium Chloride (KCL 20MEQ/SWFI 100ML) 100 ML ASDIR PRN IV Sodium Bicarbonate (SODIUM BICARBONATE) 50 MEQ ASDIR PRN IV (DC) Sodium Chloride (SODIUM CHLORIDE 0.9%) 250 ML Q24H IV (DC) Fluticasone Propionate (Flonase Nasal Baxter) 2 SPRAY DAILY NASAL (CKD) Physical Exam Head/Eyes: atraumatic, normocephalic ENT: moist mucosal membranes, normal dentition Neck: full range of motion, supple/no meningismus Cardiovascular: normal heart sounds, regular rate rhythm, no murmur Respiratory: aerating well, clear to auscultation, symmetric expansion, no distress Abdomen: non-tender, soft, no distention, no guarding, no rebound Extremities: moves all, no edema 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, oriented X 3, CNII-XII intact, no motor deficits, no sensory deficits Skin: dry, intact, no rash Psychiatry: normal affect, normal mood Results Findings/Data: Laboratory Tests 11/13 11/13 11/13 11/12 11/12 1135 0758 0501 2032 1557 Chemistry Sodium (134 - 147 mEq/L) 135 Potassium (3.4 - 5.0 mEq/L) 3.9 Chloride (100 - 108 mEq/L) 106 Carbon Dioxide (21 - 33 mEq/l) 26 Anion Gap (0 - 20) 7 BUN (7 - 25 mg/dL) 12 Creatinine (0.6 - 1.3 mg/dL) 0.6 Glomerular Filtr Rate (90 - 95) 107.9 H Glucose (77 - 141 mg/dL) 324 H POC Glucose (70 - 110 MG/DL) 212 H 287 H 229 H 141 H Calcium (8.0 - 10.5 mg/dL) 8.4 Magnesium (1.6 - 2.6 mg/dL) 1.74 Laboratory Tests 11/12 1547 Coagulation Hep-Rosalia Thrombocytopen (()) POSITIVE *A Laboratory Tests 11/13 0501 Hematology WBC (4.5 - 11.0 x10 3/uL) 4.0 L RBC (3.54 - 5.02 x10 6/uL) 2.70 L Hgb (11.0 - 15.0 g/dL) 6.6 L Hct (33.0 - 45.0 %) 22.1 L MCV (81.0 - 99.0 fL) 81.9 MCH (27.0 - 33.0 pg) 24.4 L MCHC (33.0 - 37.0 g/dL) 29.9 L RDW (11.5 - 14.5 %) 17.2 H Plt Count (150 - 400 x10 3/uL) 61 L MPV (7.0 - 9.0 fL) 12.5 H Neut % (Auto) (56.0 - 77.0 %) 67.1 Lymph % (Auto) (14.0 - 32.0 %) 18.7 Brule % (Auto) (4.8 - 9.0 %) 10.6 H Eos % (Auto) (0.3 - 3.7 %) 2.8 Baso % (Auto) (0.0 - 2.0 %) 0.3 Neut # (Auto) (2.0 - 7.6 x10 3/uL) 2.66 Lymph # (Auto) (1.0 - 3.8 x10 3/uL) 0.74 L Brule # (Auto) (0.1 - 0.8 x10 3/uL) 0.42 Eos # (Auto) (0.0 - 0.2 x10 3/uL) 0.11 Baso # (Auto) (0.0 - 0.2 x10 3/uL) 0.01 Abs Immat Gran (auto) (0.00 - 0.03 x10 3/uL) 0.02 Immature Gran % (0.0 - 2.0 %) 0.5 Nucleated RBC % (0 - 0 %) 0.0 Nucleated RBCs # (Man) (0.0 - 0.1 x10 3/uL) 0.00 Immature Plt Fraction (0.9 - 11.2 %) 10.9 Diagnosis, Assessment Plan Hospital course to date: 11/10- POD #1 CABG. c/o post op pain. d/w CV surgery team and pain management consulted 11/11- POD #2 CABG. pain is much better controlled. possibly transfer out of CCU today. chest tubes out yesterday.lasix x1 today 11/12: POD #3. Hyperglycemia improved after adding Lantus 15 BID. 11/13: Hb 6.6 today. 2 units RBC transfused. HIT panel postive, Heme Onc consulted and RACHELLE panel sent. CXR shows diffsue congestive changes. Venous doppler negative. Orders: Procedure Date/time Status PACKED CELL PRE-LEUKO REDUCED 11/13 1129 Active PHYSICIAN CONSULT 11/13 0209 Active Consultants: cardiology, cardiovascular surgery Free Text DxA P Notes Free text DxA P notes: 54 yo F w PMHx of HTN, DM presented for evaluation of SOB and chest pain at [facility]. Patient was found to have NSTEMI. 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 Patient was transported to [facility] for CABG evaluation. Assessment and Plan Heparin Induced Thrombocytopenia -Platelets trending down -HIT panel positive, pending RACHELLE -Heme-Onc consulted NSTEMI Multivessel Coronary Artery Disease - s/p CABG 11/09 - POD #4 -Platelets trending down - HIT ordered History of Essential Hypertension - Resume home BP meds when appropriate - lopressor 12.5 BID. Interstitial lung disease -PFTs done show FVC is 64% of predicted. FEV1 is 60% of predicted. Ratio is normal. History of Diabetes Mellitus Type-2, Uncontrolled - HGB A1c 8.0 - Blood sugar monitoring -Lantus 15 BID - Insulin SS History of Diabetic Neuropathy - Continue Gabapentin 1,200MG PO TID (verified) - Continue home Cymbalta History of Anxiety - Continue Seroquel 200MG PO bedtime Diet: Regular DVT ppx: Heparin gtt Pepcid FULL CODE Dispo: Awaiting heme onc consult. Trend CBC Leyda Trotter 11/13/24 1821: Attestations Teaching Physician Attestation F/U visit w/o resident: I personally saw the patient and reviewed the resident's note. I . . . agree with the resident's findings and plan. at 1317 at 1821 RPT #:[id number] END OF REPORT [facility] 2024-11-13 07:40:00 [facility] Cardiothoracic Surgery Prog REPORT#:[id number] REPORT STATUS: Signed REPORT INITIALIZATION DATE:11/13/24 TIME: 739 PATIENT: YUNIER PRATT UNIT #: [id number] ROOM/BED: 3360-1 : 72 AGE: 54 SEX: F ATTEND: Leyda Trotter MD ADM AUTHOR: Talita MonzonSKILLED HELPER REPT SERVICE DT/TIME: 11/13/24 0740 * ALL edits or amendments must be made on the electronic/computer document * General Post-op: day 4 Status post: 11/09/24 1. Coronary artery bypass graft surgery x5 (ASH to LAD, saphenous vein to diagonal, saphenous vein to first marginal, saphenous vein to second marginal, saphenous vein to PDA). 2. Amputation of left atrial appendage. 3. Endoscopic vein harvest bilateral greater saphenous vein. 4. Posterior pericardiotomy. Subjective Chief complaint: Post op Review of Systems Constitutional: Reports: fatigue, generalized weakness. Skin: Denies: abrasion. Eyes: Denies: redness. ENT: Denies: ear drainage. Respiratory: Denies: HARTMAN (dyspnea on exertion), hemoptysis, non productive cough, SOB. Cardiovascular: Denies: chest pain, HARTMAN (dyspnea on exertion), edema. GI: Denies: abdominal pain. : Denies: dysuria. All systems rev neg: except as marked Objective General VS/I O Last Documented: Result Date Time Pulse Ox 94 11/13 0353 B/P 111/61 11/13 0353 B/P Mean 0.0 11/13 0353 Temp 98.6 11/13 0353 Pulse 77 11/13 0353 Resp 19 11/13 0353 O2 Delivery Room air 11/12 1558 O2 Flow Rate 0 11/11 1601 FiO2 36 11/10 0338 24 hour I O ending at 0700: 11/13 0700 11/12 1900 Intake Total 480 Output Total 400 Balance 80 Intake, Oral 480 Number Voids 3 Output, Urine 400 PATIENT WEIGHT: Weight (lb): 162 Weight (oz): 7.69 Weight (kg): 73.700 Dietitian Nutrition assessment The data set between the solid lines has been imported from the dietitian's assessment. BMI Calculated: 26.2 Nutrition related diagnosis: Nutrition diagnosis details: Nutrition problem: Increased nutrient needs Nutrition etiology: Decreased/poor appetite, Decreased intake, Chronic disease Nutrition signs and symptoms: Mild muscle loss, 20% or more weight loss, S/P SURGERY Nutrition prescription: RECOMMEND: 1. RECOMMEND A CCD5 CARDIAC DIET. 2. RECOMMEND GLUCERNA TID WITH MEALS. Dietitian name: Evelin Perez, DIET Assessment completed: 11/10/24 Physical Exam General appearance: alert, awake, oriented Wound/incision: Location: sternum Site condition: incision intact, no changes in wound, no drainage HEENT: mucosal membranes moist, pupils reactive to light Neck: full range of motion, non-tender Cardiovascular: regular rate rhythm Respiratory: decreased breath sounds Abdomen: soft, non-tender Extremities: dry, moves all 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, oriented X 3 Skin: dry, intact Current Medications Medications: Active Meds + DC'd Last 24 Hrs Furosemide (LASIX 20MG INJ) 20 MG ONCE ONE IV (DC) Ipratropium Hazard (ATROVENT) 500 MCG RTQ2H PRN PRN INH Cyanocobalamin (Vitamin B-12 500 mcg tab) 500 MCG DAILY PO Ferrous Sulfate (FERROUS SULFATE) 325 MG DAILY PO Insulin Glargine (Semglee) 15 UNIT BID SUBQ Quetiapine Fumarate (SeroqueL) 200 MG BEDTIME PO Gabapentin (NEURONTIN) 1,200 MG TID PO Bisacodyl (DULCOLAX) 10 MG ONCE PRN RECTAL Insulin Human Lispro (Admelog) 0 AC HS SUBQ Hydromorphone HCl (DILAUDID) 1 MG Q4H PRN PRN IV Nicotine (NICODERM) 7 MG DAILY TRANSDERM (CKD) Methocarbamol (ROBAXIN) 1,000 MG Q8HR IV Amitriptyline HCl (ELAVIL) 25 MG BEDTIME PO Naloxone HCl (NARCAN) 0.4 MG Q2M PRN PRN IV Acetaminophen (TYLENOL EXTRA STRENGTH) 1,000 MG Q6H PO Hydromorphone HCl (DILAUDID) 4 MG Q4H PRN PRN PO Clopidogrel Bisulfate (Plavix) 75 MG DAILY PO Polyethylene Glycol (MIRALAX) 17 GM DAILY PO Pantoprazole (PROTONIX) 40 MG DAILY@0600 PO Aspirin (ASPIRIN) 81 MG DAILY PO Amiodarone HCl (CORDARONE) 200 MG TID PO Atorvastatin Calcium (LIPITOR) 40 MG 2100 PO Docusate Sodium (COLACE) 100 MG BID PO Metoprolol Tartrate (LOPRESSOR) 12.5 MG Q12HR PO Mupirocin (BACTROBAN 2% 22 GM OINTMENT) 1 APPLIC BID NASAL Sennosides (Senna Lax 8.6 MG TABLET) 17.2 MG BEDTIME PO Ipratropium Hazard (ATROVENT) 500 MCG RTQ4H INH (DC) Acetaminophen (TYLENOL) 650 MG Q4H PRN PRN RECTAL Calcium Chloride (CALCIUM CHLORIDE) 1 GM ASDIR PRN IV (DC) Dextrose/Water (DEXTROSE 10% IN WATER) 125 ML ASDIR PRN IV (CKD) Dextrose/Water (DEXTROSE 10% IN WATER) 250 ML ASDIR PRN IV (CKD) Epinephrine (ADRENALIN CHLORIDE) 4 MG ASDIR IV (DC) Dextrose/Water (DEXTROSE 5% WATER) 246 ML Glucagon (GLUCAGON) 1 MG ASDIR PRN IM Magnesium Sulfate (MAGNESIUM SULFATE 4GM/SWFI 100ML) 100 ML ASDIR PRN IV Magnesium Sulfate (MAGNESIUM SULFATE 2GM/SWFI 50ML) 50 ML ASDIR PRN IV Magnesium Sulfate/Dextrose (MAGNESIUM SULFATE 1GM/D5W 100ML) 100 ML ASDIR PRN IV Nitroglycerin/Dextrose (NITROGLYCERIN 50,000MCG/D5W 250ML) 250 ML ASDIR IV (DC) Norepinephrine/Dextrose (Norepinephrine 8 MG/D5W 250 mL) 250 ML TITRATE IV (DC) Ondansetron HCl (ZOFRAN) 4 MG Q6H PRN PRN IV Potassium Chloride (KCL 20MEQ/SWFI 100ML) 100 ML ASDIR PRN IV Sodium Bicarbonate (SODIUM BICARBONATE) 50 MEQ ASDIR PRN IV (DC) Sodium Chloride (SODIUM CHLORIDE 0.9%) 250 ML Q24H IV (DC) Fluticasone Propionate (Flonase Nasal Baxter) 2 SPRAY DAILY NASAL (CKD) Results Findings/Data: Laboratory Tests 11/13 11/12 11/12 11/12 11/12 0501 2032 1557 1155 0902 Chemistry Sodium (134 - 147 mEq/L) 135 Potassium (3.4 - 5.0 mEq/L) 3.9 Chloride (100 - 108 mEq/L) 106 Carbon Dioxide (21 - 33 mEq/l) 26 Anion Gap (0 - 20) 7 BUN (7 - 25 mg/dL) 12 Creatinine (0.6 - 1.3 mg/dL) 0.6 Glomerular Filtr Rate (90 - 95) 107.9 H Glucose (77 - 141 mg/dL) 324 H POC Glucose (70 - 110 MG/DL) 229 H 141 H 321 H 333 H Calcium (8.0 - 10.5 mg/dL) 8.4 Magnesium (1.6 - 2.6 mg/dL) 1.74 Laboratory Tests 11/12 1547 Coagulation Hep-Rosalia Thrombocytopen (()) POSITIVE *A Laboratory Tests 11/13 0501 Hematology WBC (4.5 - 11.0 x10 3/uL) 4.0 L RBC (3.54 - 5.02 x10 6/uL) 2.70 L Hgb (11.0 - 15.0 g/dL) 6.6 L Hct (33.0 - 45.0 %) 22.1 L MCV (81.0 - 99.0 fL) 81.9 MCH (27.0 - 33.0 pg) 24.4 L MCHC (33.0 - 37.0 g/dL) 29.9 L RDW (11.5 - 14.5 %) 17.2 H Plt Count (150 - 400 x10 3/uL) 61 L MPV (7.0 - 9.0 fL) 12.5 H Neut % (Auto) (56.0 - 77.0 %) 67.1 Lymph % (Auto) (14.0 - 32.0 %) 18.7 Brule % (Auto) (4.8 - 9.0 %) 10.6 H Eos % (Auto) (0.3 - 3.7 %) 2.8 Baso % (Auto) (0.0 - 2.0 %) 0.3 Neut # (Auto) (2.0 - 7.6 x10 3/uL) 2.66 Lymph # (Auto) (1.0 - 3.8 x10 3/uL) 0.74 L Brule # (Auto) (0.1 - 0.8 x10 3/uL) 0.42 Eos # (Auto) (0.0 - 0.2 x10 3/uL) 0.11 Baso # (Auto) (0.0 - 0.2 x10 3/uL) 0.01 Abs Immat Gran (auto) (0.00 - 0.03 x10 3/uL) 0.02 Immature Gran % (0.0 - 2.0 %) 0.5 Nucleated RBC % (0 - 0 %) 0.0 Nucleated RBCs # (Man) (0.0 - 0.1 x10 3/uL) 0.00 Immature Plt Fraction (0.9 - 11.2 %) 10.9 Radiology data: Recent Impressions: ULTRASOUND - DUP VEIN CORNELL 11/12 2056 Report Impression - Status: SIGNED Entered: 11/12/20242158 IMPRESSION: Normal Venous Doppler ultrasound of the left lower extremity. Impression By: [facility] Ange Pulido M.D. Results: labs reviewed, vital signs stable, rythm personally rev'd, current med profile rev'd Diagnosis, Assessment Plan Hospital course to date: This is a 54-year-old female with a past medical history of hypertension, diabetes on insulin who presented to [facility] with complaints of chest pain. She was ruled in for NSTEMI on her blood work. 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 Patient was transferred to [facility] for further evaluation and workup of multivessel CAD. Patient denies any alcohol or drug use. He does report half pack a day smoking for the past 40 years. 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 Assessment/plan 1. Hypertension 2. Diabetes on insulin 3. NSTEMI 4. Multivessel CAD Patient seen and examined. Patient will begin workup for consideration for coronary bypass graft surgery. Appropriate preoperative studies will be completed. Echocardiogram pending vein mapping pending Carotid Doppler pending Will obtain pulmonary function test due to patient's history of smoking Further recs to follow based on further clinical workup. 11/09/24 1. Coronary artery bypass graft surgery x5 (ASH to LAD, saphenous vein to diagonal, saphenous vein to first marginal, saphenous vein to second marginal, saphenous vein to PDA). 2. Amputation of left atrial appendage. 3. Endoscopic vein harvest bilateral greater saphenous vein. 4. Posterior pericardiotomy. 11/10/24 POD 1 AAOx3 Patient reports pain, Multimodal pain control Respiratory: 4 L nasal cannula Encourage IS, Deep Breathing, CXR reviewed chest tube drainage 25 and 25 so far this morning after walking. Chest tubes causing marked amount of pain. Will DC chest tubes Cardiac: Sinus rhythm, pacing wires on standby GI: Advance diet as tolerated, monitor glycemic control : Ramirez in place, monitor urine output UO: 765 overnight PT/OT, patient walked the unit Disposition: Patient has good family support DVT prophylaxis, SCDs in place Continue DAPT, metoprolol, Lipitor, amiodarone Labs reveiwed- replace electrolytes as needed Patient seen and examined by Dr. Ross. Plan of care discussed with patient and multidisciplinary team. The patient's questions were answered 11/11/24 POD 2 AAOx3 Patient reports pain, Multimodal pain control, pain management following Respiratory: Room air Encourage IS, Deep Breathing, CXR reviewed, chest tubes removed yesterday. Bilateral pleural effusions. Continue diuresis for now. Patient may need right pigtail placement GI: Advance diet as tolerated, monitor glycemic control : F Ramirez DC'd yesterday. Voiding well PT/OT, patient walked the unit Disposition: Patient has good family support DVT prophylaxis, SCDs in place Continue DAPT, metoprolol, Lipitor, amiodarone Labs reveiwed- replace electrolytes as needed Patient seen and examined by Dr. Ross. Plan of care discussed with patient and multidisciplinary team. The patient's questions were answered Give Lasix 20 IV today. 11/12/24 POD 3 AAOx3 Patient reports pain, Multimodal pain control, pain management following, consider decreasing pain m meds. Respiratory: Room air Encourage IS, Deep Breathing, CXR reviewed, pleural effusion appears to be improving continue diuresing. GI: Tolerating diet, pending BM : Voiding well PT/OT, patient walked the unit Disposition: Patient has good family support DVT prophylaxis, SCDs in place Continue DAPT, metoprolol, Lipitor, amiodarone Labs reveiwed- replace electrolytes as needed Patient seen and examined by Dr. Ross. Plan of care discussed with patient and multidisciplinary team. The patient's questions were answered 20 of Lasix given. Platelets trending down, Will order HIT panel 11/13/24 POD 4 AAOx3 Labs reviewed, replace electrolytes as needed, hgb dropped to 6.6 from 7.8, plts 61 HIT panel positive, pending RACHELLE Patient reports improved pain, Multimodal pain control, pain management following Respiratory: Room air, Encourage IS, Deep Breathing, CXR reviewed, There are diffuse congestive changes bilaterally. No pneumothorax or pleural effusion is identified. NSR, monitoring BP closly, pacing wires on standby GI: Tolerating diet, pending BM, mom suppository today : Voiding well, urine output 400cc overnight, Lasix today PT/OT, patient walked the unit Disposition: Patient has good family support DVT prophylaxis, SCDs in place DVT study ordered, negative DVT to Left leg, ordered updated bilateral Lower extremity Continue DAPT, metoprolol, Lipitor, amiodarone Labs reviewed- replace electrolytes as needed Patient seen and examined by Dr. Ross. Plan of care discussed with patient and multidisciplinary team. The patient's questions were answered. Consultants: cardiology, cardiovascular surgery Code status: full code Plan discussed with: patient, collaborating MD, nurse, interdisc care team at 0753 at 0835 RPT #:[id number] END OF REPORT [facility] 2024-11-13 07:30:00 [facility] ([facility] Cardiology Progress Note REPORT#:[id number] REPORT STATUS: Signed REPORT INITIALIZATION DATE:11/13/24 TIME: 07 PATIENT: YUNEIR PRATT UNIT #: [id number] ROOM/BED: [place] [id number] : 72 AGE: 54 SEX: F ATTEND: Leyda Trotter MD ADM AUTHOR: Fay Fernandez AGACNP REPT SERVICE DT/TIME: 11/13/24 07 * ALL edits or amendments must be made on the electronic/computer document * Subjective Comments: The patient is irritable. She would like to go home. However HIT came back positive. Objective General VS/I O: 24 hour I O ending at 0700: 11/13 0700 11/12 1900 Intake Total 480 Output Total 400 Balance 80 Intake, Oral 480 Number Voids 3 Output, Urine 400 Vital Signs: Date Time Temp Pulse Resp B/P B/P Pulse O2 O2 Flow FiO2 Mean Ox Delivery Rate 11/13 0353 37.0 77 19 111/61 0.0 94 11/13 0040 78 18 93 11/12 2335 79 25 107/59 78 96 11/12 2335 37.5 79 21 107/59 0.0 95 11/12 2300 82 26 90 11/12 2200 94 29 95 11/12 2100 93 27 94 11/12 2000 91 32 94 11/12 1913 92 28 130/62 88 95 11/12 1913 37.6 92 29 130/62 0.0 94 11/12 1900 91 24 96 11/12 1558 37.3 87 20 113/58 0.0 94 Room air 11/12 1513 86 26 113/58 79 97 11/12 1157 37.2 79 20 105/61 0.0 98 Room air 11/12 1156 79 25 105/61 77 100 11/12 0800 37.2 11/12 0800 81 22 112/57 79 93 11/12 0734 93 Room air PATIENT WEIGHT: Weight (lb): 162 Weight (oz): 7.69 Weight (kg): 73.700 Medications: Active Meds + DC'd Last 24 Hrs Furosemide (LASIX 20MG INJ) 20 MG ONCE ONE IV (DC) Ipratropium Hazard (ATROVENT) 500 MCG RTQ2H PRN PRN INH Cyanocobalamin (Vitamin B-12 500 mcg tab) 500 MCG DAILY PO Ferrous Sulfate (FERROUS SULFATE) 325 MG DAILY PO Insulin Glargine (Semglee) 15 UNIT BID SUBQ Quetiapine Fumarate (SeroqueL) 200 MG BEDTIME PO Gabapentin (NEURONTIN) 1,200 MG TID PO Bisacodyl (DULCOLAX) 10 MG ONCE PRN RECTAL Insulin Human Lispro (Admelog) 0 AC HS SUBQ Hydromorphone HCl (DILAUDID) 1 MG Q4H PRN PRN IV Nicotine (NICODERM) 7 MG DAILY TRANSDERM (CKD) Methocarbamol (ROBAXIN) 1,000 MG Q8HR IV Amitriptyline HCl (ELAVIL) 25 MG BEDTIME PO Naloxone HCl (NARCAN) 0.4 MG Q2M PRN PRN IV Acetaminophen (TYLENOL EXTRA STRENGTH) 1,000 MG Q6H PO Hydromorphone HCl (DILAUDID) 4 MG Q4H PRN PRN PO Clopidogrel Bisulfate (Plavix) 75 MG DAILY PO Polyethylene Glycol (MIRALAX) 17 GM DAILY PO Pantoprazole (PROTONIX) 40 MG DAILY@0600 PO Aspirin (ASPIRIN) 81 MG DAILY PO Amiodarone HCl (CORDARONE) 200 MG TID PO Atorvastatin Calcium (LIPITOR) 40 MG 2100 PO Docusate Sodium (COLACE) 100 MG BID PO Metoprolol Tartrate (LOPRESSOR) 12.5 MG Q12HR PO Mupirocin (BACTROBAN 2% 22 GM OINTMENT) 1 APPLIC BID NASAL Sennosides (Senna Lax 8.6 MG TABLET) 17.2 MG BEDTIME PO Ipratropium Hazard (ATROVENT) 500 MCG RTQ4H INH (DC) Acetaminophen (TYLENOL) 650 MG Q4H PRN PRN RECTAL Calcium Chloride (CALCIUM CHLORIDE) 1 GM ASDIR PRN IV (DC) Dextrose/Water (DEXTROSE 10% IN WATER) 125 ML ASDIR PRN IV (CKD) Dextrose/Water (DEXTROSE 10% IN WATER) 250 ML ASDIR PRN IV (CKD) Epinephrine (ADRENALIN CHLORIDE) 4 MG ASDIR IV (DC) Dextrose/Water (DEXTROSE 5% WATER) 246 ML Glucagon (GLUCAGON) 1 MG ASDIR PRN IM Magnesium Sulfate (MAGNESIUM SULFATE 4GM/SWFI 100ML) 100 ML ASDIR PRN IV Magnesium Sulfate (MAGNESIUM SULFATE 2GM/SWFI 50ML) 50 ML ASDIR PRN IV Magnesium Sulfate/Dextrose (MAGNESIUM SULFATE 1GM/D5W 100ML) 100 ML ASDIR PRN IV Nitroglycerin/Dextrose (NITROGLYCERIN 50,000MCG/D5W 250ML) 250 ML ASDIR IV (DC) Norepinephrine/Dextrose (Norepinephrine 8 MG/D5W 250 mL) 250 ML TITRATE IV (DC) Ondansetron HCl (ZOFRAN) 4 MG Q6H PRN PRN IV Potassium Chloride (KCL 20MEQ/SWFI 100ML) 100 ML ASDIR PRN IV Sodium Bicarbonate (SODIUM BICARBONATE) 50 MEQ ASDIR PRN IV (DC) Sodium Chloride (SODIUM CHLORIDE 0.9%) 250 ML Q24H IV (DC) Fluticasone Propionate (Flonase Nasal Baxter) 2 SPRAY DAILY NASAL (CKD) Physical Exam General appearance: alert, awake, oriented, no acute distress Neck: non-tender, no JVD Cardiovascular: CV assessment: regular rate and rhythm Respiratory: decreased breath sounds, shortness of breath, mild SOB Abdomen: soft, non-tender, normal bowel sounds, no distention Genitourinary: no flank pain, no urinary catheter Lower extremity: LE assessment: no edema Musculoskeletal: normal inspection 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, oriented X 3, normal speech Skin: dry, intact, normal color Psychiatry: normal affect, normal judgment/insight, normal mood Results Findings/Data: Laboratory Tests 11/13 11/12 11/12 11/12 11/12 0501 2032 1557 1155 0902 Chemistry Sodium (134 - 147 mEq/L) 135 Potassium (3.4 - 5.0 mEq/L) 3.9 Chloride (100 - 108 mEq/L) 106 Carbon Dioxide (21 - 33 mEq/l) 26 Anion Gap (0 - 20) 7 BUN (7 - 25 mg/dL) 12 Creatinine (0.6 - 1.3 mg/dL) 0.6 Glomerular Filtr Rate (90 - 95) 107.9 H Glucose (77 - 141 mg/dL) 324 H POC Glucose (70 - 110 MG/DL) 229 H 141 H 321 H 333 H Calcium (8.0 - 10.5 mg/dL) 8.4 Magnesium (1.6 - 2.6 mg/dL) 1.74 Laboratory Tests 11/12 1547 Coagulation Hep-Rosalia Thrombocytopen (()) POSITIVE Laboratory Tests 11/13 0501 Hematology WBC (4.5 - 11.0 x10 3/uL) 4.0 L RBC (3.54 - 5.02 x10 6/uL) 2.70 L Hgb (11.0 - 15.0 g/dL) 6.6 L Hct (33.0 - 45.0 %) 22.1 L MCV (81.0 - 99.0 fL) 81.9 MCH (27.0 - 33.0 pg) 24.4 L MCHC (33.0 - 37.0 g/dL) 29.9 L RDW (11.5 - 14.5 %) 17.2 H Plt Count (150 - 400 x10 3/uL) 61 L MPV (7.0 - 9.0 fL) 12.5 H Neut % (Auto) (56.0 - 77.0 %) 67.1 Lymph % (Auto) (14.0 - 32.0 %) 18.7 Brule % (Auto) (4.8 - 9.0 %) 10.6 H Eos % (Auto) (0.3 - 3.7 %) 2.8 Baso % (Auto) (0.0 - 2.0 %) 0.3 Neut # (Auto) (2.0 - 7.6 x10 3/uL) 2.66 Lymph # (Auto) (1.0 - 3.8 x10 3/uL) 0.74 L Brule # (Auto) (0.1 - 0.8 x10 3/uL) 0.42 Eos # (Auto) (0.0 - 0.2 x10 3/uL) 0.11 Baso # (Auto) (0.0 - 0.2 x10 3/uL) 0.01 Abs Immat Gran (auto) (0.00 - 0.03 x10 3/uL) 0.02 Immature Gran % (0.0 - 2.0 %) 0.5 Nucleated RBC % (0 - 0 %) 0.0 Nucleated RBCs # (Man) (0.0 - 0.1 x10 3/uL) 0.00 Immature Plt Fraction (0.9 - 11.2 %) 10.9 Laboratory Tests 11/13 0501 Chemistry Magnesium (1.6 - 2.6 mg/dL) 1.74 Radiology data: Recent Impressions: ULTRASOUND - DUP VEIN CORNELL 11/12 2056 Report Impression - Status: SIGNED Entered: 11/12/20242158 IMPRESSION: Normal Venous Doppler ultrasound of the left lower extremity. Impression By: Janey Ange Pulido M.D. Results: labs reviewed, vital signs reviewed, rhythm personally rev'd Telemetry Interpretation: Sinus rhythm Diagnosis, Assessment Plan Plan discussed with: patient, collaborating MD, nurse Free Text DxA P Notes Free Text DxA P Notes: 54 YO patient with MH of HTN, DM, neuropathy, tobacco abuse who presented at [facility] with shortness of breath and chest pain. She was ruled for NSTEMI, had LHC which revealed multivessed CAD. She is transferred to [facility] for CABG evaluation. 1. NSTEMI/Multivessel CAD * Echo LVEF 50-54%, G1DD, mild MR * Plavix ASA, BB, statin * S/p CABG (ASH-LAD, SVG-OM1, SVG-OM2, SVG-Diag, SVG-PDA) and ALAA 2. Hypertension * BP stable, continue BB. 3. Diabetes mellitus * A1c 8 * manage per CTS 4. Acute Diastolic CHF, present to admission * LVEF 50-54% * CXR still showing congestion, some shortness of breath, given another given IV lasix 20 mg today 5. Positive heparin-induced thrombocytopenia * Platelets 61K * Hematology consulted 6. Postoperative anemia * Hemoglobin 6.6 * Defer transfusion to cardiothoracic surgery MDM by Dr. Lindquist. at 1523 RPT #:[id number] END OF REPORT [facility] 2024-11-12 18:06:00 [facility] ([facility] Cardiology Progress Note REPORT#:[id number] REPORT STATUS: Signed REPORT INITIALIZATION DATE:11/12/24 TIME: 1805 PATIENT: YUNIER PRATT UNIT #: [id number] ROOM/BED: [place] [address] : 72 AGE: 54 SEX: F ATTEND: Leyda Trotter MD ADM AUTHOR: Fay Fernandez REPT SERVICE DT/TIME: 11/12/241805 * ALL edits or amendments must be made on the electronic/computer document * Subjective Patient reports: No: complaints. Objective General VS/I O: 24 hour I O ending at 0700: 11/12 0700 11/11 1900 Intake Total 900 540 Output Total 945 2400 Balance -45.00 -1860 Intake, IV 0 Intake, Oral 900 540 Intake, Oral 0 Supplement Number 0 0 Bowel Movements Number 0 Incontinent Voids Number Voids 4 Output, Stool 0 Output, Urine 945 2400 Patient 73.7 kg Weight Weight Standing scale Measurement Method Vital Signs Date Temp Pulse Resp B/P B/P Mean Pulse Ox FiO2 11/11-11/12 36.3-37.6 79-94 17-26 105-135/55-71 0.0-95 91-100 Weight (lb): 162 Weight (oz): 7.69 Weight (kg): 73.700 Medications: Active Meds + DC'd Last 24 Hrs Ipratropium Hazard (ATROVENT) 500 MCG RTQ2H PRN PRN INH Cyanocobalamin (Vitamin B-12 500 mcg tab) 500 MCG DAILY PO Ferrous Sulfate (FERROUS SULFATE) 325 MG DAILY PO Insulin Glargine (Semglee) 15 UNIT BID SUBQ Quetiapine Fumarate (SeroqueL) 200 MG BEDTIME PO Gabapentin (NEURONTIN) 1,200 MG TID PO Bisacodyl (DULCOLAX) 10 MG ONCE PRN RECTAL Insulin Human Lispro (Admelog) 0 AC HS SUBQ Hydromorphone HCl (DILAUDID) 1 MG Q4H PRN PRN IV Nicotine (NICODERM) 7 MG DAILY TRANSDERM (CKD) Methocarbamol (ROBAXIN) 1,000 MG Q8HR IV Amitriptyline HCl (ELAVIL) 25 MG BEDTIME PO Naloxone HCl (NARCAN) 0.4 MG Q2M PRN PRN IV Acetaminophen (TYLENOL EXTRA STRENGTH) 1,000 MG Q6H PO Hydromorphone HCl (DILAUDID) 4 MG Q4H PRN PRN PO Clopidogrel Bisulfate (Plavix) 75 MG DAILY PO Polyethylene Glycol (MIRALAX) 17 GM DAILY PO Pantoprazole (PROTONIX) 40 MG DAILY@0600 PO Aspirin (ASPIRIN) 81 MG DAILY PO Amiodarone HCl (CORDARONE) 200 MG TID PO Atorvastatin Calcium (LIPITOR) 40 MG 2100 PO Docusate Sodium (COLACE) 100 MG BID PO Metoprolol Tartrate (LOPRESSOR) 12.5 MG Q12HR PO Mupirocin (BACTROBAN 2% 22 GM OINTMENT) 1 APPLIC BID NASAL Sennosides (Senna Lax 8.6 MG TABLET) 17.2 MG BEDTIME PO Ipratropium Hazard (ATROVENT) 500 MCG RTQ4H INH (DC) Acetaminophen (TYLENOL) 650 MG Q4H PRN PRN RECTAL Calcium Chloride (CALCIUM CHLORIDE) 1 GM ASDIR PRN IV Dextrose/Water (DEXTROSE 10% IN WATER) 125 ML ASDIR PRN IV (CKD) Dextrose/Water (DEXTROSE 10% IN WATER) 250 ML ASDIR PRN IV (CKD) Epinephrine (ADRENALIN CHLORIDE) 4 MG ASDIR IV Dextrose/Water (DEXTROSE 5% WATER) 246 ML Glucagon (GLUCAGON) 1 MG ASDIR PRN IM Magnesium Sulfate (MAGNESIUM SULFATE 4GM/SWFI 100ML) 100 ML ASDIR PRN IV Magnesium Sulfate (MAGNESIUM SULFATE 2GM/SWFI 50ML) 50 ML ASDIR PRN IV Magnesium Sulfate/Dextrose (MAGNESIUM SULFATE 1GM/D5W 100ML) 100 ML ASDIR PRN IV Nitroglycerin/Dextrose (NITROGLYCERIN 50,000MCG/D5W 250ML) 250 ML ASDIR IV Norepinephrine/Dextrose (Norepinephrine 8 MG/D5W 250 mL) 250 ML TITRATE IV Ondansetron HCl (ZOFRAN) 4 MG Q6H PRN PRN IV Potassium Chloride (KCL 20MEQ/SWFI 100ML) 100 ML ASDIR PRN IV Sodium Bicarbonate (SODIUM BICARBONATE) 50 MEQ ASDIR PRN IV Sodium Chloride (SODIUM CHLORIDE 0.9%) 250 ML Q24H IV Fluticasone Propionate (Flonase Nasal Baxter) 2 SPRAY DAILY NASAL (CKD) Physical Exam General appearance: alert, awake, oriented, no acute distress Neck: non-tender, no JVD Cardiovascular: CV assessment: regular rate and rhythm Respiratory: decreased breath sounds, no distress Abdomen: soft, non-tender, normal bowel sounds, no distention Genitourinary: no flank pain, no urinary catheter Lower extremity: LE assessment: no edema Musculoskeletal: normal inspection 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, oriented X 3, normal speech Skin: dry, intact, normal color Psychiatry: normal affect, normal judgment/insight, normal mood Results Findings/Data: Laboratory Tests 11/12 11/12 11/12 11/12 11/11 1557 1155 0902 0549 2345 Chemistry Sodium (134 - 147 mEq/L) 135 Potassium (3.4 - 5.0 mEq/L) 4.3 Chloride (100 - 108 mEq/L) 103 Carbon Dioxide (21 - 33 mEq/l) 28 Anion Gap (0 - 20) 8 BUN (7 - 25 mg/dL) 10 Creatinine (0.6 - 1.3 mg/dL) 0.7 Glomerular Filtr Rate (90 - 95) 104.0 H Glucose (77 - 141 mg/dL) 286 H POC Glucose (70 - 110 MG/DL) 141 H 321 H 333 H 241 H Calcium (8.0 - 10.5 mg/dL) 8.8 Magnesium (1.6 - 2.6 mg/dL) 1.72 Total Bilirubin (0.0 - 1.0 mg/dL) 0.40 Direct Bilirubin (0.1 - 0.3 MG/DL) 0.20 Indirect Bilirubin (MG/DL) 0.20 AST (8 - 34 IUnit/L) 20 ALT (10 - 49 IUnit/L) 15 Total Alk Phosphatase (20 - 125 77 IUnit/L) Total Protein (5.7 - 8.2 g/dL) 6.2 Albumin (3.4 - 5.0 g/dL) 3.10 L 11/11 1920 Chemistry POC Glucose (70 - 110 MG/DL) 227 H Laboratory Tests 11/12 0342 Hematology WBC (4.5 - 11.0 x10 3/uL) 7.5 RBC (3.54 - 5.02 x10 6/uL) 3.18 L Hgb (11.0 - 15.0 g/dL) 7.8 L Hct (33.0 - 45.0 %) 25.9 L MCV (81.0 - 99.0 fL) 81.4 MCH (27.0 - 33.0 pg) 24.5 L MCHC (33.0 - 37.0 g/dL) 30.1 L RDW (11.5 - 14.5 %) 16.8 H Plt Count (150 - 400 x10 3/uL) 94 L MPV (7.0 - 9.0 fL) 12.0 H Neut % (Auto) (56.0 - 77.0 %) 71.4 Lymph % (Auto) (14.0 - 32.0 %) 16.7 Brule % (Auto) (4.8 - 9.0 %) 8.9 Eos % (Auto) (0.3 - 3.7 %) 2.1 Baso % (Auto) (0.0 - 2.0 %) 0.4 Neut # (Auto) (2.0 - 7.6 x10 3/uL) 5.38 Lymph # (Auto) (1.0 - 3.8 x10 3/uL) 1.26 Brule # (Auto) (0.1 - 0.8 x10 3/uL) 0.67 Eos # (Auto) (0.0 - 0.2 x10 3/uL) 0.16 Baso # (Auto) (0.0 - 0.2 x10 3/uL) 0.03 Abs Immat Gran (auto) (0.00 - 0.03 x10 3/uL) 0.04 H Immature Gran % (0.0 - 2.0 %) 0.5 Nucleated RBC % (0 - 0 %) 0.0 Nucleated RBCs # (Man) (0.0 - 0.1 x10 3/uL) 0.00 Laboratory Tests 11/12 0549 Chemistry Magnesium (1.6 - 2.6 mg/dL) 1.72 Radiology data: Recent Impressions: RADIOLOGY - XR CHEST 1 V 11/12 0615 Report Impression - Status: SIGNED Entered: 11/12/2024 1002 IMPRESSION: Cardiomegaly with diffuse congestive changes bilaterally. Impression By: Jack - Chastity Hunter M.D. Results: labs reviewed, vital signs reviewed Telemetry Interpretation: NSR Diagnosis, Assessment Plan Plan discussed with: patient Free Text DxA P Notes Free Text DxA P Notes: 54 YO patient with MH of HTN, DM, neuropathy, tobacco abuse who presented at [facility] with shortness of breath and chest pain. She was ruled for NSTEMI, had LHC which revealed multivessed CAD. She is transferred to [facility] for CABG evaluation. 1. NSTEMI/Multivessel CAD * Echo LVEF 50-54%, G1DD, mild MR * Plavix ASA, BB, statin * S/p CABG (ASH-LAD, SVG-OM1, SVG-OM2, SVG-Diag, SVG-PDA) and ALAA 2. Hypertension * BP stable, continue BB. 3. Diabetes mellitus * A1c 8 * manage per CTS 4. Acute Diastolic CHF, present to admission * LVEF 50-54% * CXR noted, give IV lasix 20 mg x1 dose MDM by Dr. Lindquist. at 1810 RPT #:[id number] END OF REPORT [facility] 2024-11-12 09:25:00 [facility] ([facility]) Pain Management Progress Note REPORT#:[id number] REPORT STATUS: Signed REPORT INITIALIZATION DATE:11/12/24 TIME: 924 PATIENT: YUNIER PRATT UNIT #: [id number] ROOM/BED: [place] [id number] : 72 AGE: 54 SEX: F ATTEND: Alejandro Bay MD ADM AUTHOR: Alejandro Cabrera JOB COACH/JOB DEVELOPER REPT SERVICE DT/TIME: 11/12/24924 * ALL edits or amendments must be made on the electronic/computer document * Subjective Chief complaint: Patient seen and examined. Chart/MAR reviewed Patient is in ICU. Patient states the pain has been optimally controlled. The medications are effective at times of need. The pain medication does not appear to be causing side effects. Patient being seen for chest pain, acute postoperative pain, diabetic polyneuropathy, muscle spasms, constipation Patient is still requiring medications to help with managing current problems Patient is requiring IV narcotics to help manage breakthrough pain No fever/chills, chest pain, orthopnea, nausea/vomiting, pruritus, or hallucinations. 14-point ROS undertaken and is unremarkable except as noted. Objective General VS/I O: Vital Signs Date Temp Pulse Resp B/P B/P Mean Pulse Ox FiO2 11/11-11/12 97.3-99.7 81-94 17-38 106-153/55-73 75-105 71-100 Last Documented: Result Date Time Temp 99.0 11/12 0800 Pulse Ox 93 11/12 0800 B/P 112/57 11/12 0800 B/P Mean 79 11/12 0800 Pulse 81 11/12 0800 Resp 22 11/12 0800 O2 Delivery Room air 11/12 0734 O2 Flow Rate 0 11/11 1601 FiO2 36 11/10 0338 24 hour I O ending at 0700: 11/12 0700 11/11 1900 Intake Total 900 540 Output Total 945 2400 Balance -45.00 -1860 Intake, IV 0 Intake, Oral 900 540 Intake, Oral 0 Supplement Number 0 0 Bowel Movements Number 0 Incontinent Voids Number Voids 4 Output, Stool 0 Output, Urine 945 2400 Patient 73.7 kg Weight Weight Standing scale Measurement Method PATIENT WEIGHT: Weight (lb): 162 Weight (oz): 7.69 Weight (kg): 73.700 Medications: Active Meds + DC'd Last 24 Hrs Ipratropium Hazard (ATROVENT) 500 MCG RTQ2H PRN PRN INH Cyanocobalamin (Vitamin B-12 500 mcg tab) 500 MCG DAILY PO Ferrous Sulfate (FERROUS SULFATE) 325 MG DAILY PO Insulin Glargine (Semglee) 15 UNIT BID SUBQ Quetiapine Fumarate (SeroqueL) 200 MG BEDTIME PO Gabapentin (NEURONTIN) 1,200 MG TID PO Furosemide (LASIX 20MG INJ) 20 MG ONCE ONE IV (DC) Bisacodyl (DULCOLAX) 10 MG ONCE PRN RECTAL Magnesium Hydroxide (MILK OF MAGNESIA) 30 ML ONCE PRN PO (DC) Insulin Human Lispro (Admelog) 0 AC HS SUBQ Hydromorphone HCl (DILAUDID) 1 MG Q4H PRN PRN IV Gabapentin (NEURONTIN) 1,200 MG BID PO (DC) Nicotine (NICODERM) 7 MG DAILY TRANSDERM (CKD) Methocarbamol (ROBAXIN) 1,000 MG Q8HR IV Amitriptyline HCl (ELAVIL) 25 MG BEDTIME PO Naloxone HCl (NARCAN) 0.4 MG Q2M PRN PRN IV Acetaminophen (TYLENOL EXTRA STRENGTH) 1,000 MG Q6H PO Hydromorphone HCl (DILAUDID) 4 MG Q4H PRN PRN PO Hydromorphone HCl (DILAUDID) 0.5 MG Q3H PRN PRN IV (DC) Clopidogrel Bisulfate (Plavix) 75 MG DAILY PO Polyethylene Glycol (MIRALAX) 17 GM DAILY PO Pantoprazole (PROTONIX) 40 MG DAILY@0600 PO Aspirin (ASPIRIN) 81 MG DAILY PO Amiodarone HCl (CORDARONE) 200 MG TID PO Atorvastatin Calcium (LIPITOR) 40 MG 2100 PO Docusate Sodium (COLACE) 100 MG BID PO Metoprolol Tartrate (LOPRESSOR) 12.5 MG Q12HR PO Mupirocin (BACTROBAN 2% 22 GM OINTMENT) 1 APPLIC BID NASAL Sennosides (Senna Lax 8.6 MG TABLET) 17.2 MG BEDTIME PO Ipratropium Hazard (ATROVENT) 500 MCG RTQ4H INH Acetaminophen (TYLENOL) 650 MG Q4H PRN PRN RECTAL Calcium Chloride (CALCIUM CHLORIDE) 1 GM ASDIR PRN IV Dextrose/Water (DEXTROSE 10% IN WATER) 125 ML ASDIR PRN IV (CKD) Dextrose/Water (DEXTROSE 10% IN WATER) 250 ML ASDIR PRN IV (CKD) Epinephrine (ADRENALIN CHLORIDE) 4 MG ASDIR IV Dextrose/Water (DEXTROSE 5% WATER) 246 ML Glucagon (GLUCAGON) 1 MG ASDIR PRN IM Insulin Human Regular (MYXREDLIN 100 UNITS/NS 100ML) 100 ML ASDIR IV (DC ) Magnesium Sulfate (MAGNESIUM SULFATE 4GM/SWFI 100ML) 100 ML ASDIR PRN IV Magnesium Sulfate (MAGNESIUM SULFATE 2GM/SWFI 50ML) 50 ML ASDIR PRN IV Magnesium Sulfate/Dextrose (MAGNESIUM SULFATE 1GM/D5W 100ML) 100 ML ASDIR PRN IV Nitroglycerin/Dextrose (NITROGLYCERIN 50,000MCG/D5W 250ML) 250 ML ASDIR IV Norepinephrine/Dextrose (Norepinephrine 8 MG/D5W 250 mL) 250 ML TITRATE IV Ondansetron HCl (ZOFRAN) 4 MG Q6H PRN PRN IV Potassium Chloride (KCL 20MEQ/SWFI 100ML) 100 ML ASDIR PRN IV Sodium Bicarbonate (SODIUM BICARBONATE) 50 MEQ ASDIR PRN IV Sodium Chloride (SODIUM CHLORIDE 0.9%) 250 ML Q24H IV Fluticasone Propionate (Flonase Nasal Baxter) 2 SPRAY DAILY NASAL (CKD) Physical Exam General appearance: alert, awake, oriented, no acute distress Head/eyes: atraumatic, EOMI, normocephalic, PERRLA ENT: moist mucosal membranes Neck: no JVD, supple/no meningismus Cardiovascular: regular rate rhythm, normal heart sounds, dressing over sternum Respiratory: clear to auscultation, aerating well, symmetric expansion Abdomen: soft, non-tender, no distention Extremities: moves all, no edema, no clubbing, no cyanosis 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, oriented X 3, normal speech, CNII-XII grossly intact Skin: dry, warm Psychiatry: normal affect, normal judgment/insight, normal mood Results Findings/data: Laboratory Tests: 11/12 11/12 11/12 11/11 0902 0549 7120 0318 Chemistry Sodium (134 - 147 mEq/L) 135 Potassium (3.4 - 5.0 mEq/L) 4.3 Chloride (100 - 108 mEq/L) 103 Carbon Dioxide (21 - 33 mEq/l) 28 Anion Gap (0 - 20) 8 BUN (7 - 25 mg/dL) 10 Creatinine (0.6 - 1.3 mg/dL) 0.7 Glomerular Filtr Rate (90 - 95) 104.0 H Glucose (77 - 141 mg/dL) 286 H POC Glucose (70 - 110 MG/DL) 333 H 241 H Calcium (8.0 - 10.5 mg/dL) 8.8 Magnesium (1.6 - 2.6 mg/dL) 1.72 Total Bilirubin (0.0 - 1.0 mg/dL) 0.40 Direct Bilirubin (0.1 - 0.3 MG/DL) 0.20 Indirect Bilirubin (MG/DL) 0.20 AST (8 - 34 IUnit/L) 20 ALT (10 - 49 IUnit/L) 15 Total Alk Phosphatase (20 - 125 IUnit/L) 77 Total Protein (5.7 - 8.2 g/dL) 6.2 Albumin (3.4 - 5.0 g/dL) 3.10 L Hematology WBC (4.5 - 11.0 x10 3/uL) 7.5 RBC (3.54 - 5.02 x10 6/uL) 3.18 L Hgb (11.0 - 15.0 g/dL) 7.8 L Hct (33.0 - 45.0 %) 25.9 L MCV (81.0 - 99.0 fL) 81.4 MCH (27.0 - 33.0 pg) 24.5 L MCHC (33.0 - 37.0 g/dL) 30.1 L RDW (11.5 - 14.5 %) 16.8 H Plt Count (150 - 400 x10 3/uL) 94 L MPV (7.0 - 9.0 fL) 12.0 H Neut % (Auto) (56.0 - 77.0 %) 71.4 Lymph % (Auto) (14.0 - 32.0 %) 16.7 Brule % (Auto) (4.8 - 9.0 %) 8.9 Eos % (Auto) (0.3 - 3.7 %) 2.1 Baso % (Auto) (0.0 - 2.0 %) 0.4 Neut # (Auto) (2.0 - 7.6 x10 3/uL) 5.38 Lymph # (Auto) (1.0 - 3.8 x10 3/uL) 1.26 Brule # (Auto) (0.1 - 0.8 x10 3/uL) 0.67 Eos # (Auto) (0.0 - 0.2 x10 3/uL) 0.16 Baso # (Auto) (0.0 - 0.2 x10 3/uL) 0.03 Abs Immat Gran (auto) (0.00 - 0.03 0.04 H x10 3/uL) Immature Gran % (0.0 - 2.0 %) 0.5 Nucleated RBC % (0 - 0 %) 0.0 Nucleated RBCs # (Man) (0.0 - 0.1 x10 3/uL) 0.00 11/11 11/11 11/11 11/11 1920 1743 1631 1045 Chemistry Sodium (134 - 147 mEq/L) 133 L Potassium (3.4 - 5.0 mEq/L) 4.5 Chloride (100 - 108 mEq/L) 103 Carbon Dioxide (21 - 33 mEq/l) 26 Anion Gap (0 - 20) 8 BUN (7 - 25 mg/dL) 11 Creatinine (0.6 - 1.3 mg/dL) 0.8 Glomerular Filtr Rate (90 - 95) 88.6 L Glucose (77 - 141 mg/dL) 262 H POC Glucose (70 - 110 MG/DL) 227 H 185 H 371 H Calcium (8.0 - 10.5 mg/dL) 8.7 Magnesium (1.6 - 2.6 mg/dL) 1.61 Diagnosis, Assessment Plan Free text A P: Patient is a 54 year old female who presents with the following: Chest pain, acute postoperative pain -S/P CABG on 11/09/24 -DC oxycodone 10mg q6h PRN -Acetaminophen 1000mg q6h -Dilaudid 4mg PO q4h PRN, pain scale 4-10 -Dilaudid 1mg IV q4h PRN, pain scale 7-10, second line (11/11) -stable Diabetic polyneuropathy -Amitriptyline 25mg at bedtime -Gabapentin 1200mg TID (11/11) -stable Muscle spams -DC Robaxin 500mg PO TID -Methocarbamol 1000mg IV q8h -stable Insomnia -Takes seroquel 200mg QHS at home Constipation -Docusate 100mg BID -Miralax 17gm daily -Senna 17.2 mg at bedtime -stable Disposition: Rx: [facility]acy: [facility] Past medical history: DM, HTN, CAD Past surgical history: CABG, ALAA, PP, EVH Family history: NC Social history: denies drugs, alcohol, smoking Allergies: NKDA All pertinent diagnostics/labs from the last 24 hours and during the course of the admission were reviewed. Plan discussed with the patient and the nurse. All questions were answered. Patient will be monitored for deleterious side effects associated with opioids and sedative medications. Medications will be adjusted further clinical course. Risks versus benefits of opioid medications were reviewed to include, but not limited to respiratory depression, accidental overdose, altered mental status, sudden , constipation which could result in bowel obstruction, seizures, withdrawal, dependency/addiction, risk for falls. Goals: Daily pain control. Case reviewed and discussed with Dr. Keith who agrees with plan of care. 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 (1911) [address] [place] [address] [id number] (3522) [address] [place] [address] at 1147 RPT #:[id number] END OF REPORT [facility] 2024-11-12 08:31:00 [facility] ([facility]) Hospitalist Progress Note REPORT#:[id number] REPORT STATUS: Signed REPORT INITIALIZATION DATE:11/12/24 TIME: 830 PATIENT: YUNIER PRATT UNIT #: [id number] ROOM/BED: [place] [id number] : 72 AGE: 54 SEX: F ATTEND: Leyda Trotter MD ADM AUTHOR: Dayanara Man MD R1 REPT SERVICE DT/TIME: 11/12/24 0831 * ALL edits or amendments must be made on the electronic/computer document * Dayanara Man 11/12/24 0831: Subjective Chief complaint: No complaints Objective General VS/I O: Vital Signs: Date Time Temp Pulse Resp B/P B/P Pulse O2 O2 Flow FiO2 Mean Ox Delivery Rate 11/12 0800 37.2 11/12 0800 81 22 112/57 79 93 11/12 0734 93 Room air 11/12 0700 84 17 112/56 78 92 11/12 0634 86 20 106/59 78 92 11/12 0445 96 Room air 11/12 0400 36.6 11/12 0300 86 19 110/57 77 93 11/12 0200 87 19 110/56 77 92 11/12 0101 87 20 92 11/12 0100 88 17 115/57 81 91 11/12 0000 36.7 11/12 0000 36.3 11/12 0000 86 20 115/55 79 94 11/11 2303 94 125/71 95 99 11/11 2200 84 18 117/59 83 93 11/11 2100 85 107/56 75 94 11/11 2014 91 135/65 93 100 11/12 1999 17 11/12 1999 37.6 11/11 1959 96 Room air 11/11 1900 86 24 115/60 82 92 11/11 1700 94 26 153/73 105 95 11/11 1601 37.2 88 142/60 86 71 0 11/11 1500 84 24 143/65 93 94 11/11 1400 87 38 119/71 83 97 11/11 1300 82 27 115/59 80 93 11/11 1200 37.6 85 30 135/69 94 98 0 11/11 1100 82 36 152/72 103 99 24 hour I O ending at 0700: 11/12 0700 11/11 1900 Intake Total 900 540 Output Total 945 2400 Balance -45.00 -1860 Intake, IV 0 Intake, Oral 900 540 Intake, Oral 0 Supplement Number 0 0 Bowel Movements Number 0 Incontinent Voids Number Voids 4 Output, Stool 0 Output, Urine 945 2400 Patient 73.7 kg Weight Weight Standing scale Measurement Method PATIENT WEIGHT: Weight (lb): 162 Weight (oz): 7.69 Weight (kg): 73.700 Medications: Active Meds + DC'd Last 24 Hrs Ipratropium Hazard (ATROVENT) 500 MCG RTQ2H PRN PRN INH Cyanocobalamin (Vitamin B-12 500 mcg tab) 500 MCG DAILY PO Ferrous Sulfate (FERROUS SULFATE) 325 MG DAILY PO Insulin Glargine (Semglee) 15 UNIT BID SUBQ Quetiapine Fumarate (SeroqueL) 200 MG BEDTIME PO Gabapentin (NEURONTIN) 1,200 MG TID PO Furosemide (LASIX 20MG INJ) 20 MG ONCE ONE IV (DC) Bisacodyl (DULCOLAX) 10 MG ONCE PRN RECTAL Magnesium Hydroxide (MILK OF MAGNESIA) 30 ML ONCE PRN PO (DC) Insulin Human Lispro (Admelog) 0 AC HS SUBQ Hydromorphone HCl (DILAUDID) 1 MG Q4H PRN PRN IV Gabapentin (NEURONTIN) 1,200 MG BID PO (DC) Nicotine (NICODERM) 7 MG DAILY TRANSDERM (CKD) Methocarbamol (ROBAXIN) 1,000 MG Q8HR IV Amitriptyline HCl (ELAVIL) 25 MG BEDTIME PO Naloxone HCl (NARCAN) 0.4 MG Q2M PRN PRN IV Acetaminophen (TYLENOL EXTRA STRENGTH) 1,000 MG Q6H PO Hydromorphone HCl (DILAUDID) 4 MG Q4H PRN PRN PO Hydromorphone HCl (DILAUDID) 0.5 MG Q3H PRN PRN IV (DC) Clopidogrel Bisulfate (Plavix) 75 MG DAILY PO Polyethylene Glycol (MIRALAX) 17 GM DAILY PO Pantoprazole (PROTONIX) 40 MG DAILY@0600 PO Aspirin (ASPIRIN) 81 MG DAILY PO Amiodarone HCl (CORDARONE) 200 MG TID PO Atorvastatin Calcium (LIPITOR) 40 MG 2100 PO Docusate Sodium (COLACE) 100 MG BID PO Metoprolol Tartrate (LOPRESSOR) 12.5 MG Q12HR PO Mupirocin (BACTROBAN 2% 22 GM OINTMENT) 1 APPLIC BID NASAL Sennosides (Senna Lax 8.6 MG TABLET) 17.2 MG BEDTIME PO Ipratropium Hazard (ATROVENT) 500 MCG RTQ4H INH Acetaminophen (TYLENOL) 650 MG Q4H PRN PRN RECTAL Calcium Chloride (CALCIUM CHLORIDE) 1 GM ASDIR PRN IV Dextrose/Water (DEXTROSE 10% IN WATER) 125 ML ASDIR PRN IV (CKD) Dextrose/Water (DEXTROSE 10% IN WATER) 250 ML ASDIR PRN IV (CKD) Epinephrine (ADRENALIN CHLORIDE) 4 MG ASDIR IV Dextrose/Water (DEXTROSE 5% WATER) 246 ML Glucagon (GLUCAGON) 1 MG ASDIR PRN IM Magnesium Sulfate (MAGNESIUM SULFATE 4GM/SWFI 100ML) 100 ML ASDIR PRN IV Magnesium Sulfate (MAGNESIUM SULFATE 2GM/SWFI 50ML) 50 ML ASDIR PRN IV Magnesium Sulfate/Dextrose (MAGNESIUM SULFATE 1GM/D5W 100ML) 100 ML ASDIR PRN IV Nitroglycerin/Dextrose (NITROGLYCERIN 50,000MCG/D5W 250ML) 250 ML ASDIR IV Norepinephrine/Dextrose (Norepinephrine 8 MG/D5W 250 mL) 250 ML TITRATE IV Ondansetron HCl (ZOFRAN) 4 MG Q6H PRN PRN IV Potassium Chloride (KCL 20MEQ/SWFI 100ML) 100 ML ASDIR PRN IV Sodium Bicarbonate (SODIUM BICARBONATE) 50 MEQ ASDIR PRN IV Sodium Chloride (SODIUM CHLORIDE 0.9%) 250 ML Q24H IV Fluticasone Propionate (Flonase Nasal Baxter) 2 SPRAY DAILY NASAL (CKD) Physical Exam Head/Eyes: atraumatic, normocephalic ENT: moist mucosal membranes, normal dentition Neck: full range of motion, supple/no meningismus Cardiovascular: normal heart sounds, regular rate rhythm, no murmur Respiratory: aerating well, clear to auscultation, symmetric expansion, no distress Abdomen: non-tender, soft, no distention, no guarding, no rebound Extremities: moves all, no edema 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, oriented X 3, CNII-XII intact, no motor deficits, no sensory deficits Skin: dry, intact, no rash Psychiatry: normal affect, normal mood Diagnosis, Assessment Plan Hospital course to date: 11/10- POD #1 CABG. c/o post op pain. d/w CV surgery team and pain management consulted 11/11- POD #2 CABG. pain is much better controlled. possibly transfer out of CCU today. chest tubes out yesterday.lasix x1 today 11/12: POD #3. Hyperglycemia improved after adding Lantus 15 BID. Consultants: cardiology, cardiovascular surgery Free Text DxA P Notes Free text DxA P notes: 54 yo F w PMHx of HTN, DM presented for evaluation of SOB and chest pain at [facility]. Patient was found to have NSTEMI. 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 Patient was transported to [facility] for CABG evaluation. Assessment and Plan NSTEMI Multivessel Coronary Artery Disease - s/p CABG 11/09 - POD #3 -Lasix 20 given today -Platelets trending down - HIT ordered History of Essential Hypertension - Resume home BP meds when appropriate - lopressor 12.5 BID. History of Diabetes Mellitus Type-2, Uncontrolled - HGB A1c 8.0 - Blood sugar monitoring -Lantus 15 BID - Insulin SS History of Diabetic Neuropathy - Continue Gabapentin 1,200MG PO TID (verified) - Continue home Cymbalta History of Anxiety - Continue Seroquel 200MG PO bedtime Diet: Regular DVT ppx: Heparin gtt Pepcid FULL CODE Dispo: Awaiting HIT panel. Leyda Trotter 11/12/241958: Attestations Teaching Physician Attestation F/U visit w/o resident: I personally saw the patient and reviewed the resident's note. I . . . agree with the resident's findings and plan. at 1912 at 1959 [facility] #:[id number] END OF REPORT [facility] 2024-11-12 08:01:00 [facility] Critical Care Progress Note REPORT#:[id number] REPORT STATUS: Signed REPORT INITIALIZATION DATE:11/12/24 TIME: 08 PATIENT: YUNIER PRATT UNIT #: [id number] ROOM/BED: [place] [id number] : 72 AGE: 54 SEX: F ATTEND: Alejandro Bay MD ADM AUTHOR: Jean Claude Smith MD REPT SERVICE DT/TIME: 11/12/24 0801 * ALL edits or amendments must be made on the electronic/computer document * Subjective Chief complaint: CP, SOB HPI: 52-year-old female with significant history of hypertension diabetes diabetic neuropathy history of CAD tobacco use who presented to an outside facility [facility] complaining of shortness of breath or chest pain. Diagnosed with elevated troponins and NSTEMI. Cardiac cath showed multivessel disease. Patient was transferred to [facility] for surgical vascularization evaluation. Patient today underwent CABG x 5 ASH to LAD SVG to diagonal VG to OM1 SVG to OM 2 SVG to RPDA bilateral lower extremity endoscopic vein harvest the left atrial appendage amputation. Patient received 1.5 L of crystalloids EBL was 200 Cell Saver received was 430 urine output through the case was 500. Cross-clamp time was 72 minutes cardiopulmonary bypass time was 78 minutes. Patient coming off pump was in V-fib that required x 1 shock and temporary pacing. Patient was extubated ultimately room and brought to the CVICU on norepinephrine at 3 mics per kilo per minute and insulin 2 units/h. Patient pCO2 was elevated at the initial gas and required BiPAP immediately after arrival. 11/10 Seen evaluated this morning. Postop day 1. Overnight significant issues with pain requiring multiple doses of narcotic agents. We will increase her Neurontin dose to her home dose. Up in a chair doing okay oxygen requirements are improved. Hemoglobin is 6.9 started low continues to be on insulin drip glucose well-controlled 11/11 Seen evaluate this morning postop day 2 on room air no pressors acute pain following the patient denies being on pain medications review of scripts show that she is on multiple narcotics as well as other medications for her neuropathy. Will restart as able. Patient requested nicotine patch and patient was transitioned off insulin drip was started on insulin sliding scale today. 11/12 Doing okay no significant issues overnight. Awake and interactive. Pain better controlled. On room air ambulating tolerating well p.o. had a bowel movement will start diuresing. Objective General VS/I O Last Documented: Result Date Time Pulse Ox 93 11/12 0734 O2 Delivery Room air 11/12 0734 B/P 106/59 11/12 0634 B/P Mean 78 11/12 0634 Pulse 86 11/12 0634 Resp 20 11/12 0634 Temp 97.8 11/12 0400 O2 Flow Rate 0 11/11 1601 FiO2 36 11/10 0338 24 hour I O ending at 0700: 11/12 0700 11/11 1900 Intake Total 900 540 Output Total 945 2400 Balance -45.00 -1860 Intake, IV 0 Intake, Oral 900 540 Intake, Oral 0 Supplement Number 0 0 Bowel Movements Number 0 Incontinent Voids Number Voids 4 Output, Stool 0 Output, Urine 945 2400 Patient 73.7 kg Weight Weight Standing scale Measurement Method PATIENT WEIGHT: Weight (lb): 162 Weight (oz): 7.69 Weight (kg): 73.700 Medications: Active Meds + DC'd Last 24 Hrs Ipratropium Hazard (ATROVENT) 500 MCG RTQ2H PRN PRN INH Cyanocobalamin (Vitamin B-12 500 mcg tab) 500 MCG DAILY PO Ferrous Sulfate (FERROUS SULFATE) 325 MG DAILY PO Insulin Glargine (Semglee) 15 UNIT BID SUBQ Quetiapine Fumarate (SeroqueL) 200 MG BEDTIME PO Gabapentin (NEURONTIN) 1,200 MG TID PO Furosemide (LASIX 20MG INJ) 20 MG ONCE ONE IV (DC) Bisacodyl (DULCOLAX) 10 MG ONCE PRN RECTAL Magnesium Hydroxide (MILK OF MAGNESIA) 30 ML ONCE PRN PO (DC) Insulin Human Lispro (Admelog) 0 AC HS SUBQ Hydromorphone HCl (DILAUDID) 1 MG Q4H PRN PRN IV Gabapentin (NEURONTIN) 1,200 MG BID PO (DC) Nicotine (NICODERM) 7 MG DAILY TRANSDERM (CKD) Methocarbamol (ROBAXIN) 1,000 MG Q8HR IV Amitriptyline HCl (ELAVIL) 25 MG BEDTIME PO Naloxone HCl (NARCAN) 0.4 MG Q2M PRN PRN IV Acetaminophen (TYLENOL EXTRA STRENGTH) 1,000 MG Q6H PO Hydromorphone HCl (DILAUDID) 4 MG Q4H PRN PRN PO Hydromorphone HCl (DILAUDID) 0.5 MG Q3H PRN PRN IV (DC) Clopidogrel Bisulfate (Plavix) 75 MG DAILY PO Polyethylene Glycol (MIRALAX) 17 GM DAILY PO Pantoprazole (PROTONIX) 40 MG DAILY@0600 PO Aspirin (ASPIRIN) 81 MG DAILY PO Amiodarone HCl (CORDARONE) 200 MG TID PO Atorvastatin Calcium (LIPITOR) 40 MG 2100 PO Docusate Sodium (COLACE) 100 MG BID PO Metoprolol Tartrate (LOPRESSOR) 12.5 MG Q12HR PO Mupirocin (BACTROBAN 2% 22 GM OINTMENT) 1 APPLIC BID NASAL Sennosides (Senna Lax 8.6 MG TABLET) 17.2 MG BEDTIME PO Ipratropium Hazard (ATROVENT) 500 MCG RTQ4H INH Acetaminophen (TYLENOL) 650 MG Q4H PRN PRN RECTAL Calcium Chloride (CALCIUM CHLORIDE) 1 GM ASDIR PRN IV Dextrose/Water (DEXTROSE 10% IN WATER) 125 ML ASDIR PRN IV (CKD) Dextrose/Water (DEXTROSE 10% IN WATER) 250 ML ASDIR PRN IV (CKD) Epinephrine (ADRENALIN CHLORIDE) 4 MG ASDIR IV Dextrose/Water (DEXTROSE 5% WATER) 246 ML Glucagon (GLUCAGON) 1 MG ASDIR PRN IM Insulin Human Regular (MYXREDLIN 100 UNITS/NS 100ML) 100 ML ASDIR IV (DC ) Magnesium Sulfate (MAGNESIUM SULFATE 4GM/SWFI 100ML) 100 ML ASDIR PRN IV Magnesium Sulfate (MAGNESIUM SULFATE 2GM/SWFI 50ML) 50 ML ASDIR PRN IV Magnesium Sulfate/Dextrose (MAGNESIUM SULFATE 1GM/D5W 100ML) 100 ML ASDIR PRN IV Nitroglycerin/Dextrose (NITROGLYCERIN 50,000MCG/D5W 250ML) 250 ML ASDIR IV Norepinephrine/Dextrose (Norepinephrine 8 MG/D5W 250 mL) 250 ML TITRATE IV Ondansetron HCl (ZOFRAN) 4 MG Q6H PRN PRN IV Potassium Chloride (KCL 20MEQ/SWFI 100ML) 100 ML ASDIR PRN IV Sodium Bicarbonate (SODIUM BICARBONATE) 50 MEQ ASDIR PRN IV Sodium Chloride (SODIUM CHLORIDE 0.9%) 250 ML Q24H IV Fluticasone Propionate (Flonase Nasal Baxter) 2 SPRAY DAILY NASAL (CKD) Physical Exam Head/eyes: EOMI, PERRLA ENT: moist mucosal membranes Neck: non-tender, no JVD Cardiovascular: normal capillary refill, normal heart sounds Respiratory: decreased breath sounds, symmetric expansion, no distress Abdomen: soft, non-tender, no guarding Extremities: moves all, normal capillary refill 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: CNII-XII intact, normal speech, reflexes equal bilat, no motor deficits, no sensory deficits, somnolent but follows commands Results Findings/data: Laboratory Tests 11/12 11/11 11/11 11/11 11/11 0549 2345 1920 1743 1631 Chemistry Sodium (134 - 147 mEq/L) 135 133 L Potassium (3.4 - 5.0 mEq/L) 4.3 4.5 Chloride (100 - 108 mEq/L) 103 103 Carbon Dioxide (21 - 33 mEq/l) 28 26 Anion Gap (0 - 20) 8 8 BUN (7 - 25 mg/dL) 10 11 Creatinine (0.6 - 1.3 mg/dL) 0.7 0.8 Glomerular Filtr Rate (90 - 95) 104.0 H 88.6 L Glucose (77 - 141 mg/dL) 286 H 262 H POC Glucose (70 - 110 MG/DL) 241 H 227 H 185 H Calcium (8.0 - 10.5 mg/dL) 8.8 8.7 Magnesium (1.6 - 2.6 mg/dL) 1.72 1.61 Total Bilirubin (0.0 - 1.0 mg/dL) 0.40 Direct Bilirubin (0.1 - 0.3 MG/DL) 0.20 Indirect Bilirubin (MG/DL) 0.20 AST (8 - 34 IUnit/L) 20 ALT (10 - 49 IUnit/L) 15 Total Alk Phosphatase (20 - 125 IUnit/L) 77 Total Protein (5.7 - 8.2 g/dL) 6.2 Albumin (3.4 - 5.0 g/dL) 3.10 L 11/11 1045 Chemistry POC Glucose (70 - 110 MG/DL) 371 H Laboratory Tests 11/12 0342 Hematology WBC (4.5 - 11.0 x10 3/uL) 7.5 RBC (3.54 - 5.02 x10 6/uL) 3.18 L Hgb (11.0 - 15.0 g/dL) 7.8 L Hct (33.0 - 45.0 %) 25.9 L MCV (81.0 - 99.0 fL) 81.4 MCH (27.0 - 33.0 pg) 24.5 L MCHC (33.0 - 37.0 g/dL) 30.1 L RDW (11.5 - 14.5 %) 16.8 H Plt Count (150 - 400 x10 3/uL) 94 L MPV (7.0 - 9.0 fL) 12.0 H Neut % (Auto) (56.0 - 77.0 %) 71.4 Lymph % (Auto) (14.0 - 32.0 %) 16.7 Brule % (Auto) (4.8 - 9.0 %) 8.9 Eos % (Auto) (0.3 - 3.7 %) 2.1 Baso % (Auto) (0.0 - 2.0 %) 0.4 Neut # (Auto) (2.0 - 7.6 x10 3/uL) 5.38 Lymph # (Auto) (1.0 - 3.8 x10 3/uL) 1.26 Brule # (Auto) (0.1 - 0.8 x10 3/uL) 0.67 Eos # (Auto) (0.0 - 0.2 x10 3/uL) 0.16 Baso # (Auto) (0.0 - 0.2 x10 3/uL) 0.03 Abs Immat Gran (auto) (0.00 - 0.03 x10 3/uL) 0.04 H Immature Gran % (0.0 - 2.0 %) 0.5 Nucleated RBC % (0 - 0 %) 0.0 Nucleated RBCs # (Man) (0.0 - 0.1 x10 3/uL) 0.00 Laboratory Tests 11/12/24 0549: [Embedded Image Not Available] 11/12/24 0342: [Embedded Image Not Available] 11/11/24 1743: [Embedded Image Not Available] Diagnosis, Assessment Plan Problem list/A P: 1. Tobacco use 2. S/P CABG x 5 3. CAD (coronary artery disease) 4. DM neuropathy, type II diabetes mellitus 5. DM (diabetes mellitus) 6. HTN (hypertension) Free text A P: 52-year-old female significant past med history of hypertension diabetes CAD diabetic neuropathy current tobacco use who was evaluated outside facility for an NSTEMI and then found to have multivessel disease transferred for surgical vascularization. Assessment History hypertension History of diabetes History of CAD History of recent NSTEMI History of diabetic neuropathy Current tobacco use Status post CABG x 5 11/12 Doing okay pain well-controlled on room air ambulating stable enough to transfer to the floor Plan Transfer to N 1 Continue telemetry Advance diet as tolerated continue bowel regimen Patient does have a history of tobacco use. On nicotine patch.. Continue aggressive pulmonary toilet incentive spirometry and pulm clearance as needed. Start gentle diuresis. Replete electrolytes as needed. Monitor H H transfuse for hemoglobin less than 7 or active bleeding Mechanical DVT prophylaxis for now PT/OT ambulation as able Continue to restart home medications as able Adjusted insulin sliding scale for better glucose control. Consultants: cardiology, cardiovascular surgery Critical care time: Minutes: 35 at 0823 RPT #:[id number] END OF REPORT [facility] 2024-11-12 07:51:00 [facility] Cardiothoracic Surgery Prog REPORT#:[id number] REPORT STATUS: Signed REPORT INITIALIZATION DATE:11/12/24 TIME: 750 PATIENT: YUNIER PRATT UNIT #: [id number] ROOM/BED: 3360-1 : 72 AGE: 54 SEX: F ATTEND: Leyda Trotter MD ADM AUTHOR: Elise Harvey Physic REPT SERVICE DT/TIME: 11/12/24 0751 * ALL edits or amendments must be made on the electronic/computer document * General Post-op: day 3 Status post: 11/09/24 1. Coronary artery bypass graft surgery x5 (ASH to LAD, saphenous vein to diagonal, saphenous vein to first marginal, saphenous vein to second marginal, saphenous vein to PDA). 2. Amputation of left atrial appendage. 3. Endoscopic vein harvest bilateral greater saphenous vein. 4. Posterior pericardiotomy. Subjective Chief complaint: Post op Review of Systems Constitutional: Reports: fatigue, generalized weakness. Respiratory: Denies: HARTMAN (dyspnea on exertion), SOB. Cardiovascular: Reports: chest pain. All systems rev neg: except as marked Objective General VS/I O Last Documented: Result Date Time Pulse Ox 93 11/12 0734 O2 Delivery Room air 11/12 0734 B/P 106/59 11/12 0634 B/P Mean 78 11/12 0634 Pulse 86 11/12 0634 Resp 20 11/12 0634 Temp 97.8 11/12 0400 O2 Flow Rate 0 11/11 1601 FiO2 36 11/10 0338 24 hour I O ending at 0700: 11/12 0700 11/11 1900 Intake Total 900 540 Output Total 945 2400 Balance -45.00 -1860 Intake, IV 0 Intake, Oral 900 540 Intake, Oral 0 Supplement Number 0 0 Bowel Movements Number 0 Incontinent Voids Number Voids 4 Output, Stool 0 Output, Urine 945 2400 Patient 73.7 kg Weight Weight Standing scale Measurement Method PATIENT WEIGHT: Weight (lb): 162 Weight (oz): 7.69 Weight (kg): 73.700 Physical Exam General appearance: alert, awake, oriented HEENT: mucosal membranes moist, pupils reactive to light Neck: full range of motion, non-tender Cardiovascular: regular rate rhythm Respiratory: decreased breath sounds Abdomen: soft, non-tender Extremities: dry, moves all 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, 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 She was ruled in for NSTEMI on her blood work. 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 Patient was transferred to [facility] for further evaluation and workup of multivessel CAD. Patient denies any alcohol or drug use. He does report half pack a day smoking for the past 40 years. 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 Assessment/plan 1. Hypertension 2. Diabetes on insulin 3. NSTEMI 4. Multivessel CAD Patient seen and examined. Patient will begin workup for consideration for coronary bypass graft surgery. Appropriate preoperative studies will be completed. Echocardiogram pending vein mapping pending Carotid Doppler pending Will obtain pulmonary function test due to patient's history of smoking Further recs to follow based on further clinical workup. 11/09/24 1. Coronary artery bypass graft surgery x5 (ASH to LAD, saphenous vein to diagonal, saphenous vein to first marginal, saphenous vein to second marginal, saphenous vein to PDA). 2. Amputation of left atrial appendage. 3. Endoscopic vein harvest bilateral greater saphenous vein. 4. Posterior pericardiotomy. 11/10/24 POD 1 AAOx3 Patient reports pain, Multimodal pain control Respiratory: 4 L nasal cannula Encourage IS, Deep Breathing, CXR reviewed chest tube drainage 25 and 25 so far this morning after walking. Chest tubes causing marked amount of pain. Will DC chest tubes Cardiac: Sinus rhythm, pacing wires on standby GI: Advance diet as tolerated, monitor glycemic control : Ramirez in place, monitor urine output UO: 765 overnight PT/OT, patient walked the unit Disposition: Patient has good family support DVT prophylaxis, SCDs in place Continue DAPT, metoprolol, Lipitor, amiodarone Labs reveiwed- replace electrolytes as needed Patient seen and examined by Dr. Ross. Plan of care discussed with patient and multidisciplinary team. The patient's questions were answered 11/11/24 POD 2 AAOx3 Patient reports pain, Multimodal pain control, pain management following Respiratory: Room air Encourage IS, Deep Breathing, CXR reviewed, chest tubes removed yesterday. Bilateral pleural effusions. Continue diuresis for now. Patient may need right pigtail placement GI: Advance diet as tolerated, monitor glycemic control : F Ramirez DC'd yesterday. Voiding well PT/OT, patient walked the unit Disposition: Patient has good family support DVT prophylaxis, SCDs in place Continue DAPT, metoprolol, Lipitor, amiodarone Labs reveiwed- replace electrolytes as needed Patient seen and examined by Dr. Ross. Plan of care discussed with patient and multidisciplinary team. The patient's questions were answered Give Lasix 20 IV today. 11/12/24 POD 3 AAOx3 Patient reports pain, Multimodal pain control, pain management following, consider decreasing pain m meds. Respiratory: Room air Encourage IS, Deep Breathing, CXR reviewed, pleural effusion appears to be improving continue diuresing. GI: Tolerating diet, pending BM : Voiding well PT/OT, patient walked the unit Disposition: Patient has good family support DVT prophylaxis, SCDs in place Continue DAPT, metoprolol, Lipitor, amiodarone Labs reveiwed- replace electrolytes as needed Patient seen and examined by Dr. Ross. Plan of care discussed with patient and multidisciplinary team. The patient's questions were answered 20 of Lasix given. Platelets trending down, Will order HIT panel Consultants: cardiology, cardiovascular surgery at 1717 at 0834 RPT #:[id number] END OF REPORT [facility] 2024-11-11 15:50:00 [facility] ([facility]) Cardiology Progress Note REPORT#:[id number] REPORT STATUS: Signed REPORT INITIALIZATION DATE:11/11/24 TIME: 1550 PATIENT: YUNIER PRATT UNIT #: [id number] ROOM/BED: [place] [address] : 72 AGE: 54 SEX: F ATTEND: Alejandro Bay MD ADM AUTHOR: Fay Fernandez AGACNP REPT SERVICE DT/TIME: 11/11/24 1550 * ALL edits or amendments must be made on the electronic/computer document * Subjective Patient reports: No: complaints. Objective General VS/I O: 24 hour I O ending at 0700: 11/11 0700 11/10 1900 Intake Total 360 575 Output Total 1100 695 Balance -740 -120 Intake, Oral 360 575 Number Voids 6 Output, Chest 50 Tube Drainage Output, Urine 1100 645 Patient 72.5 kg 72.575 kg Weight Weight Standing scale Measurement Method Vital Signs Date Temp Pulse Resp B/P B/P Mean Pulse Ox FiO2 11/10-11/11 36.7-37.6 71-89 15-38 115-152/58-72 80-103 91-100 PATIENT WEIGHT: Weight (lb): 159 Weight (oz): 13.36 Weight (kg): 72.500 Medications: Active Meds + DC'd Last 24 Hrs Ipratropium Hazard (ATROVENT) 500 MCG RTQ2H PRN PRN INH Cyanocobalamin (Vitamin B-12 500 mcg tab) 500 MCG DAILY PO Ferrous Sulfate (FERROUS SULFATE) 325 MG DAILY PO Quetiapine Fumarate (SeroqueL) 200 MG BEDTIME PO Gabapentin (NEURONTIN) 1,200 MG TID PO Furosemide (LASIX 20MG INJ) 20 MG ONCE ONE IV (DC) Bisacodyl (DULCOLAX) 10 MG ONCE PRN RECTAL Magnesium Hydroxide (MILK OF MAGNESIA) 30 ML ONCE PRN PO Insulin Human Lispro (Admelog) 0 AC HS SUBQ Hydromorphone HCl (DILAUDID) 1 MG Q4H PRN PRN IV Gabapentin (NEURONTIN) 1,200 MG BID PO (DC) Nicotine (NICODERM) 7 MG DAILY TRANSDERM (CKD) Methocarbamol (ROBAXIN) 1,000 MG Q8HR IV Amitriptyline HCl (ELAVIL) 25 MG BEDTIME PO Gabapentin (NEURONTIN) 1,200 MG BID PO (DC) Gabapentin (NEURONTIN) 600 MG ONCE ONE PO (DC) Naloxone HCl (NARCAN) 0.4 MG Q2M PRN PRN IV Acetaminophen (TYLENOL EXTRA STRENGTH) 1,000 MG Q6H PO Hydromorphone HCl (DILAUDID) 4 MG Q4H PRN PRN PO Hydromorphone HCl (DILAUDID) 0.5 MG Q3H PRN PRN IV (DC) Clopidogrel Bisulfate (Plavix) 75 MG DAILY PO Gabapentin (NEURONTIN) 600 MG BID PO (DC) Polyethylene Glycol (MIRALAX) 17 GM DAILY PO Pantoprazole (PROTONIX) 40 MG DAILY@0600 PO Aspirin (ASPIRIN) 81 MG DAILY PO Amiodarone HCl (CORDARONE) 200 MG TID PO Atorvastatin Calcium (LIPITOR) 40 MG 2100 PO Docusate Sodium (COLACE) 100 MG BID PO Metoprolol Tartrate (LOPRESSOR) 12.5 MG Q12HR PO Mupirocin (BACTROBAN 2% 22 GM OINTMENT) 1 APPLIC BID NASAL Sennosides (Senna Lax 8.6 MG TABLET) 17.2 MG BEDTIME PO Ipratropium Hazard (ATROVENT) 500 MCG RTQ4H INH Acetaminophen (TYLENOL) 650 MG Q4H PRN PRN RECTAL Albumin Human (ALBUMINAR 25%) 25 GM ASDIR PRN IV (DC) Calcium Chloride (CALCIUM CHLORIDE) 1 GM ASDIR PRN IV Dextrose/Water (DEXTROSE 10% IN WATER) 125 ML ASDIR PRN IV (CKD) Dextrose/Water (DEXTROSE 10% IN WATER) 250 ML ASDIR PRN IV (CKD) Epinephrine (ADRENALIN CHLORIDE) 4 MG ASDIR IV Dextrose/Water (DEXTROSE 5% WATER) 246 ML Glucagon (GLUCAGON) 1 MG ASDIR PRN IM Insulin Human Regular (MYXREDLIN 100 UNITS/NS 100ML) 100 ML ASDIR IV (DC ) Magnesium Sulfate (MAGNESIUM SULFATE 4GM/SWFI 100ML) 100 ML ASDIR PRN IV Magnesium Sulfate (MAGNESIUM SULFATE 2GM/SWFI 50ML) 50 ML ASDIR PRN IV Magnesium Sulfate/Dextrose (MAGNESIUM SULFATE 1GM/D5W 100ML) 100 ML ASDIR PRN IV Nitroglycerin/Dextrose (NITROGLYCERIN 50,000MCG/D5W 250ML) 250 ML ASDIR IV Norepinephrine/Dextrose (Norepinephrine 8 MG/D5W 250 mL) 250 ML TITRATE IV Ondansetron HCl (ZOFRAN) 4 MG Q6H PRN PRN IV Potassium Chloride (KCL 20MEQ/SWFI 100ML) 100 ML ASDIR PRN IV Sodium Bicarbonate (SODIUM BICARBONATE) 50 MEQ ASDIR PRN IV Sodium Chloride (SODIUM CHLORIDE 0.9%) 250 ML Q24H IV Fluticasone Propionate (Flonase Nasal Baxter) 2 SPRAY DAILY NASAL (CKD) Physical Exam General appearance: alert, awake Neck: non-tender, no JVD Cardiovascular: CV assessment: pedal edema, regular rate and rhythm Respiratory: decreased breath sounds, no distress Abdomen: soft, non-tender, normal bowel sounds, no distention Genitourinary: no flank pain, no urinary catheter Lower extremity: LE assessment: edema Musculoskeletal: normal inspection 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, oriented X 3, normal speech Skin: dry, intact, normal color Psychiatry: normal affect, normal judgment/insight, normal mood Results Findings/Data: Laboratory Tests 11/11 11/11 11/11 11/10 1045 0745 0321 1644 Chemistry Sodium (134 - 147 mEq/L) 135 Potassium (3.4 - 5.0 mEq/L) 4.5 Chloride (100 - 108 mEq/L) 106 Carbon Dioxide (21 - 33 mEq/l) 25 Anion Gap (0 - 20) 8 BUN (7 - 25 mg/dL) 12 Creatinine (0.6 - 1.3 mg/dL) 0.7 Glomerular Filtr Rate (90 - 95) 104.0 H Glucose (77 - 141 mg/dL) 317 H POC Glucose (70 - 110 MG/DL) 371 H 270 H 135 H Calcium (8.0 - 10.5 mg/dL) 8.6 Magnesium (1.6 - 2.6 mg/dL) 1.76 Total Bilirubin (0.0 - 1.0 mg/dL) 0.50 Direct Bilirubin (0.1 - 0.3 MG/DL) 0.20 Indirect Bilirubin (MG/DL) 0.30 AST (8 - 34 IUnit/L) 38 H ALT (10 - 49 IUnit/L) 15 Total Alk Phosphatase (20 - 125 IUnit/L) 73 Total Protein (5.7 - 8.2 g/dL) 6.1 Albumin (3.4 - 5.0 g/dL) 3.10 L Laboratory Tests 11/11 0321 Hematology WBC (4.5 - 11.0 x10 3/uL) 11.1 H RBC (3.54 - 5.02 x10 6/uL) 2.98 L Hgb (11.0 - 15.0 g/dL) 7.2 L Hct (33.0 - 45.0 %) 24.4 L MCV (81.0 - 99.0 fL) 81.9 MCH (27.0 - 33.0 pg) 24.2 L MCHC (33.0 - 37.0 g/dL) 29.5 L RDW (11.5 - 14.5 %) 16.9 H Plt Count (150 - 400 x10 3/uL) 113 L MPV (7.0 - 9.0 fL) 12.3 H Neut % (Auto) (56.0 - 77.0 %) 75.1 Lymph % (Auto) (14.0 - 32.0 %) 12.2 L Brule % (Auto) (4.8 - 9.0 %) 9.9 H Eos % (Auto) (0.3 - 3.7 %) 1.9 Baso % (Auto) (0.0 - 2.0 %) 0.4 Neut # (Auto) (2.0 - 7.6 x10 3/uL) 8.36 H Lymph # (Auto) (1.0 - 3.8 x10 3/uL) 1.35 Brule # (Auto) (0.1 - 0.8 x10 3/uL) 1.10 H Eos # (Auto) (0.0 - 0.2 x10 3/uL) 0.21 H Baso # (Auto) (0.0 - 0.2 x10 3/uL) 0.04 Abs Immat Gran (auto) (0.00 - 0.03 x10 3/uL) 0.05 H Immature Gran % (0.0 - 2.0 %) 0.5 Nucleated RBC % (0 - 0 %) 0.0 Nucleated RBCs # (Man) (0.0 - 0.1 x10 3/uL) 0.00 Laboratory Tests 11/11 0321 Chemistry Magnesium (1.6 - 2.6 mg/dL) 1.76 Radiology data: Recent Impressions: RADIOLOGY - XR CHEST 1 V 11/11 0713 Report Impression - Status: SIGNED Entered: 11/11/2024 7353 IMPRESSION: 1. No significant change. Impression By: [email or web address] - Remberto Pfeiffer M.D. Results: labs reviewed, vital signs reviewed, rhythm personally rev'd Diagnosis, Assessment Plan Plan discussed with: patient, family, collaborating MD, nurse Free Text DxA P Notes Free Text DxA P Notes: 54 YO patient with MH of HTN, DM, neuropathy, tobacco abuse who presented at [facility] with shortness of breath and chest pain. She was ruled for NSTEMI, had LHC which revealed multivessed CAD. She is transferred to [facility] for CABG evaluation. 1. NSTEMI/Multivessel CAD * Echo LVEF 50-54%, G1DD, mild MR * Plavix ASA, BB, statin * S/p CABG (ASH-LAD, SVG-OM1, SVG-OM2, SVG-Diag, SVG-PDA) and ALAA 2. Hypertension * BP stable, continue BB. 3. Diabetes mellitus * A1c 8 * manage per CTS 4. Acute Diastolic CHF, present to admission * LVEF 50-54% MDM by Dr. Lindquist. at 0725 RPT #:[id number] END OF REPORT [facility] 2024-11-11 14:34:00 [facility] ([facility] Hospitalist Progress Note REPORT#:[id number] REPORT STATUS: Signed REPORT INITIALIZATION DATE:11/11/24 TIME: 1433 PATIENT: YUNIER PRATT UNIT #: [id number] ROOM/BED: [place] [address] : 72 AGE: 54 SEX: F ATTEND: Alejandro Bay MD ADM AUTHOR: Alejandro Bay MD REPT SERVICE DT/TIME: 11/11/241433 * ALL edits or amendments must be made on the electronic/computer document * Subjective Chief complaint: states post op pain is improved. ready to transfer out of ICU Objective General VS/I O: Vital Signs: Date Time Temp Pulse Resp B/P B/P Pulse O2 O2 Flow FiO2 Mean Ox Delivery Rate 11/11 1000 84 18 150/71 102 98 11/11 0900 83 22 119/58 84 96 11/11 0800 99.1 89 33 125/65 88 91 0 11/11 0739 94 Room air 11/11 0700 81 21 123/58 84 94 11/11 0600 83 23 139/64 92 94 11/11 0500 80 18 120/58 84 95 11/11 0432 96 Room air 11/11 0406 78 24 120/60 83 94 11/11 0400 99.0 78 24 120/60 83 94 Room air 11/11 0300 80 21 119/66 87 97 11/11 0200 81 20 144/67 97 91 11/11 0142 97 11/11 0100 73 19 120/58 84 93 11/11 0000 98.0 73 15 129/63 90 100 Room air 03 0000 73 15 129/63 90 100 03/22 2300 71 21 123/63 88 96 11/10 2200 73 26 122/61 86 95 11/10 2112 28 121/59 83 91 11/11 1999 98.9 79 25 143/65 93 97 Room air 11/11 1999 79 25 143/65 93 97 11/10 1958 96 Room air 11/10 1900 78 30 128/63 90 98 11/10 1700 81 33 119/67 87 95 11/10 1600 79 29 131/66 92 96 11/10 1500 75 21 121/69 90 24 hour I O ending at 0700: 11/11 0700 11/10 1900 Intake Total 360 575 Output Total 1100 695 Balance -740 -120 Intake, Oral 360 575 Number Voids 6 Output, Chest 50 Tube Drainage Output, Urine 1100 645 Patient 72.5 kg 72.575 kg Weight Weight Standing scale Measurement Method PATIENT WEIGHT: Weight (lb): 159 Weight (oz): 13.36 Weight (kg): 72.500 Physical Exam General appearance: alert, awake, oriented Head/Eyes: atraumatic, normocephalic ENT: moist mucosal membranes, normal dentition Neck: full range of motion, supple/no meningismus Cardiovascular: normal heart sounds, regular rate rhythm, no murmur Respiratory: aerating well, clear to auscultation, symmetric expansion, no distress Abdomen: non-tender, soft, no distention, no guarding, no rebound Extremities: moves all, no edema 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, oriented X 3, CNII-XII intact, no motor deficits, no sensory deficits Skin: dry, intact, no rash Psychiatry: normal affect, normal mood Results Radiology data: Laboratory Tests 11/11/24 0321: [Embedded Image Not Available] 11/10/24 0124: [Embedded Image Not Available] 11/09/24 1757: [Embedded Image Not Available] Current Medications Sig/Clarke Start time Last Medication Dose Route Stop Time Status Admin Ipratropium Hazard 500 MCG RTQ2H PRN PRN 11/12 1558 AC INH 02/10 1557 Cyanocobalamin 500 MCG DAILY 11/12 0900 AC PO 02/10 0859 Ferrous Sulfate 325 MG DAILY 11/12 0900 AC PO 02/10 0859 Quetiapine Fumarate 200 MG BEDTIME 11/11 2100 AC PO 02/09 2059 Gabapentin 1,200 MG TID 11/11 1500 AC PO 02/09 1459 Furosemide 20 MG ONCE ONE 11/11 1230 DC 11/11 IV 11/11 1231 1356 Bisacodyl 10 MG ONCE PRN 11/11 1200 AC RECTAL 02/09 1159 Magnesium Hydroxide 30 ML ONCE PRN 11/11 1200 AC PO Insulin Human Lispro 0 AC HS 11/11 1130 AC 11/11 SUBQ 02/09 1129 1051 Hydromorphone HCl 1 MG Q4H PRN PRN 11/11 1045 AC 11/11 IV 12/12 1300 1301 Gabapentin 1,200 MG BID 11/11 0900 DC 11/11 PO 02/09 0859 0807 Nicotine 7 MG DAILY 11/11 09 CKD 11/11 TRANSDERM 11/17 0901 1011 Methocarbamol 1,000 MG Q8HR 11/10 2200 AC 11/11 IV 11/13 2159 1356 Amitriptyline HCl 25 MG BEDTIME 11/10 2100 AC 11/10 PO 02/08 Gabapentin 1,200 MG BID 11/10 2100 DC PO 02/08 205 Gabapentin 600 MG ONCE ONE 11/10 2100 DC 11/10 PO 11/10 2101 2103 Naloxone HCl 0.4 MG Q2M PRN PRN 11/10 1700 AC IV 12/10 1659 Acetaminophen 1,000 MG Q6H 11/10 1600 AC 11/11 PO 02/07 1559 1012 Hydromorphone HCl 4 MG Q4H PRN PRN 11/10 1545 AC 11/11 PO 12/11 1300 1046 Hydromorphone HCl 0.5 MG Q3H PRN PRN 11/10 1545 DC 11/11 IV 12/11 1300 0817 Hydromorphone HCl 0.2 MG Q3H PRN PRN 11/10 1145 DC 11/10 IV 11/15 1144 1411 Clopidogrel Bisulfate 75 MG DAILY 11/10 09 AC 11/11 PO 02/08 0859 0807 Gabapentin 600 MG BID 11/10 09 DC 11/10 PO 02/08 0859 2003 Methocarbamol 500 MG TID 11/10 0900 DC 11/10 PO 02/08 0859 1411 Polyethylene Glycol 17 GM DAILY 11/10 09 AC 11/11 PO 02/08 0859 0806 Pantoprazole 40 MG DAILY@06 11/10 0600 AC 11/11 PO 02/08 0559 0600 Oxycodone HCl 10 MG Q6H PRN PRN 11/09 2330 DC 11/10 PO 11/14 2329 1009 Aspirin 81 MG DAILY 11/09 2158 AC 11/11 PO 02/07 2157 0808 Amiodarone HCl 200 MG TID 11/09 2099 AC 11/11 PO 02/07 2059 0807 Atorvastatin Calcium 40 MG 2100 11/09 2100 AC 11/10 PO 12/09 Docusate Sodium 100 MG BID 11/09 2100 AC 11/11 PO 02/07 2059 0807 Metoprolol Tartrate 12.5 MG Q12HR 11/09 2099 AC 11/11 PO 02/07 2059 0807 Mupirocin 1 APPLIC BID 11/09 2100 AC 11/11 NASAL 11/14 0901 0806 Sennosides 17.2 MG BEDTIME 11/09 2099 AC 11/10 PO 02/07 Ipratropium Hazard 500 MCG RTQ4H 11/09 1700 AC 11/11 INH 02/07 1659 1142 Acetaminophen 650 MG Q4H PRN PRN 11/09 1600 DC PO 02/07 1559 Acetaminophen 650 MG Q4H PRN PRN 11/09 1600 AC RECTAL 02/07 1559 Albumin Human 25 GM ASDIR PRN 11/09 1600 DC IV 11/10 1558 Calcium Chloride 1 GM ASDIR PRN 11/09 1600 AC IV 02/07 1559 Dextrose/Water 125 ML ASDIR PRN 11/09 1600 CKD IV 02/07 1559 Dextrose/Water 250 ML ASDIR PRN 11/09 1600 CKD IV 02/07 1559 Epinephrine 4 MG ASDIR 11/09 1600 AC Dextrose/Water 246 ML IV 02/07 1559 Glucagon 1 MG ASDIR PRN 11/09 1600 AC IM 02/07 1559 Insulin Human Regular 100 ML ASDIR 11/09 1600 DC IV 02/07 1559 Magnesium Sulfate 100 ML ASDIR PRN 11/09 1600 AC IV 02/07 1559 Magnesium Sulfate 50 ML ASDIR PRN 11/09 1600 AC 11/11 IV 02/07 1559 0601 Magnesium Sulfate/ 100 ML ASDIR PRN 11/09 1600 AC 11/10 Dextrose IV 02/07 1559 0353 Nitroglycerin/ 250 ML ASDIR 11/09 1600 AC Dextrose IV 02/07 1559 Norepinephrine/ 250 ML TITRATE 11/10 1599 AC Dextrose IV 02/07 155 Ondansetron HCl 4 MG Q6H PRN PRN 11/09 1600 AC IV 02/07 155 Potassium Chloride 100 ML ASDIR PRN 11/09 1600 AC IV 02/07 155 Sodium Bicarbonate 50 MEQ ASDIR PRN 11/09 1600 AC IV 02/07 155 Sodium Chloride 250 ML Q24H 11/09 1600 AC IV 02/07 155 Fluticasone 2 SPRAY DAILY 11/09 0900 CKD 11/11 Propionate NASAL 12/09 0859 0806 Laboratory Tests: 11/11 11/11 11/11 11/10 1045 0742 0321 1644 Chemistry Sodium (134 - 147 mEq/L) 135 Potassium (3.4 - 5.0 mEq/L) 4.5 Chloride (100 - 108 mEq/L) 106 Carbon Dioxide (21 - 33 mEq/l) 25 Anion Gap (0 - 20) 8 BUN (7 - 25 mg/dL) 12 Creatinine (0.6 - 1.3 mg/dL) 0.7 Glomerular Filtr Rate (90 - 95) 104.0 H Glucose (77 - 141 mg/dL) 317 H POC Glucose (70 - 110 MG/DL) 371 H 270 H 135 H Calcium (8.0 - 10.5 mg/dL) 8.6 Magnesium (1.6 - 2.6 mg/dL) 1.76 Total Bilirubin (0.0 - 1.0 mg/dL) 0.50 Direct Bilirubin (0.1 - 0.3 MG/DL) 0.20 Indirect Bilirubin (MG/DL) 0.30 AST (8 - 34 IUnit/L) 38 H ALT (10 - 49 IUnit/L) 15 Total Alk Phosphatase (20 - 125 IUnit/L) 73 Total Protein (5.7 - 8.2 g/dL) 6.1 Albumin (3.4 - 5.0 g/dL) 3.10 L Hematology WBC (4.5 - 11.0 x10 3/uL) 11.1 H RBC (3.54 - 5.02 x10 6/uL) 2.98 L Hgb (11.0 - 15.0 g/dL) 7.2 L Hct (33.0 - 45.0 %) 24.4 L MCV (81.0 - 99.0 fL) 81.9 MCH (27.0 - 33.0 pg) 24.2 L MCHC (33.0 - 37.0 g/dL) 29.5 L RDW (11.5 - 14.5 %) 16.9 H Plt Count (150 - 400 x10 3/uL) 113 L MPV (7.0 - 9.0 fL) 12.3 H Neut % (Auto) (56.0 - 77.0 %) 75.1 Lymph % (Auto) (14.0 - 32.0 %) 12.2 L Brule % (Auto) (4.8 - 9.0 %) 9.9 H Eos % (Auto) (0.3 - 3.7 %) 1.9 Baso % (Auto) (0.0 - 2.0 %) 0.4 Neut # (Auto) (2.0 - 7.6 x10 3/uL) 8.36 H Lymph # (Auto) (1.0 - 3.8 x10 3/uL) 1.35 Brule # (Auto) (0.1 - 0.8 x10 3/uL) 1.10 H Eos # (Auto) (0.0 - 0.2 x10 3/uL) 0.21 H Baso # (Auto) (0.0 - 0.2 x10 3/uL) 0.04 Abs Immat Gran (auto) (0.00 - 0.03 x10 3/uL) 0.05 H Immature Gran % (0.0 - 2.0 %) 0.5 Nucleated RBC % (0 - 0 %) 0.0 Nucleated RBCs # (Man) (0.0 - 0.1 x10 3/uL) 0.00 Recent Impressions: RADIOLOGY - XR CHEST 1 V 11/11 7313 Report Impression - Status: SIGNED Entered: 11/11/2024 8163 IMPRESSION: 1. No significant change. Impression By: Alexa - Remberto Pfeiffer M.D. Diagnosis, Assessment Plan Hospital course to date: 11/10- POD #1 CABG. c/o post op pain. d/w CV surgery team and pain management consulted 11/11- POD #2 CABG. pain is much better controlled. possibly transfer out of CCU today. chest tubes out yesterday.lasix x1 today Consultants: cardiology, cardiovascular surgery Free Text DxA P Notes Free text DxA P notes: 54 yo F w PMHx of HTN, DM presented for evaluation of SOB and chest pain at [facility]. Patient was found to have NSTEMI. 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 Patient was transported to [facility] for CABG evaluation. Assessment and Plan NSTEMI Multivessel Coronary Artery Disease - s/p CABG 11/09 - POD #2. History of Essential Hypertension - Resume home BP meds when appropriate - lopressor 12.5 BID. History of Diabetes Mellitus Type-2, Uncontrolled - HGB A1c 8.0 - Blood sugar monitoring - Insulin SS History of Diabetic Neuropathy - Continue Gabapentin 1,200MG PO TID (verified) - Continue home Cymbalta History of Anxiety - Continue Seroquel 200MG PO bedtime Diet: Cardiac DVT ppx: Heparin gtt Pepcid FULL CODE Dispo: POD #2. CABG...out of icu transfer at 1439 RPT #:[id number] END OF REPORT [facility] 2024-11-11 12:23:00 [facility] ([facility]) Cardiothoracic Surgery Prog REPORT#:[id number] REPORT STATUS: Signed REPORT INITIALIZATION DATE:11/11/24 TIME: 1223 PATIENT: YUNIER PRATT UNIT #: [id number] ROOM/BED: [place] [address] : 72 AGE: 54 SEX: F ATTEND: Leyda Trotter MD ADM AUTHOR: Elise Harvey Physic REPT SERVICE DT/TIME: 11/11/24 1223 * ALL edits or amendments must be made on the electronic/computer document * General Post-op: day 2 Status post: 11/09/24 1. Coronary artery bypass graft surgery x5 (ASH to LAD, saphenous vein to diagonal, saphenous vein to first marginal, saphenous vein to second marginal, saphenous vein to PDA). 2. Amputation of left atrial appendage. 3. Endoscopic vein harvest bilateral greater saphenous vein. 4. Posterior pericardiotomy. Subjective Chief complaint: Post op Review of Systems Constitutional: Reports: fatigue, generalized weakness. Respiratory: Denies: HARTMAN (dyspnea on exertion), SOB. Cardiovascular: Reports: chest pain. All systems rev neg: except as marked Objective General VS/I O Last Documented: Result Date Time Pulse Ox 98 11/11 1000 B/P 150/71 11/11 1000 B/P Mean 102 11/11 1000 Pulse 84 11/11 1000 Resp 18 11/11 1000 O2 Flow Rate 0 11/11 0800 Temp 99.1 11/11 0800 O2 Delivery Room air 11/11 0739 FiO2 36 11/10 0338 24 hour I O ending at 0700: 11/11 0700 11/10 1900 Intake Total 360 575 Output Total 1100 695 Balance -740 -120 Intake, Oral 360 575 Number Voids 6 Output, Chest 50 Tube Drainage Output, Urine 1100 645 Patient 72.5 kg 72.575 kg Weight Weight Standing scale Measurement Method PATIENT WEIGHT: Weight (lb): 159 Weight (oz): 13.36 Weight (kg): 72.500 Physical Exam General appearance: alert, awake, oriented HEENT: mucosal membranes moist, pupils reactive to light Neck: full range of motion, non-tender Cardiovascular: regular rate rhythm Respiratory: decreased breath sounds Abdomen: soft, non-tender Extremities: dry, moves all 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, 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 She was ruled in for NSTEMI on her blood work. 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 Patient was transferred to [facility] for further evaluation and workup of multivessel CAD. Patient denies any alcohol or drug use. He does report half pack a day smoking for the past 40 years. 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 Assessment/plan 1. Hypertension 2. Diabetes on insulin 3. NSTEMI 4. Multivessel CAD Patient seen and examined. Patient will begin workup for consideration for coronary bypass graft surgery. Appropriate preoperative studies will be completed. Echocardiogram pending vein mapping pending Carotid Doppler pending Will obtain pulmonary function test due to patient's history of smoking Further recs to follow based on further clinical workup. 11/09/24 1. Coronary artery bypass graft surgery x5 (ASH to LAD, saphenous vein to diagonal, saphenous vein to first marginal, saphenous vein to second marginal, saphenous vein to PDA). 2. Amputation of left atrial appendage. 3. Endoscopic vein harvest bilateral greater saphenous vein. 4. Posterior pericardiotomy. 11/10/24 POD 1 AAOx3 Patient reports pain, Multimodal pain control Respiratory: 4 L nasal cannula Encourage IS, Deep Breathing, CXR reviewed chest tube drainage 25 and 25 so far this morning after walking. Chest tubes causing marked amount of pain. Will DC chest tubes Cardiac: Sinus rhythm, pacing wires on standby GI: Advance diet as tolerated, monitor glycemic control : Ramirez in place, monitor urine output UO: 765 overnight PT/OT, patient walked the unit Disposition: Patient has good family support DVT prophylaxis, SCDs in place Continue DAPT, metoprolol, Lipitor, amiodarone Labs reveiwed- replace electrolytes as needed Patient seen and examined by Dr. Ross. Plan of care discussed with patient and multidisciplinary team. The patient's questions were answered 11/11/24 POD 2 AAOx3 Patient reports pain, Multimodal pain control, pain management following Respiratory: Room air Encourage IS, Deep Breathing, CXR reviewed, chest tubes removed yesterday. Bilateral pleural effusions. Continue diuresis for now. Patient may need right pigtail placement GI: Advance diet as tolerated, monitor glycemic control : F Ramirez DC'd yesterday. Voiding well PT/OT, patient walked the unit Disposition: Patient has good family support DVT prophylaxis, SCDs in place Continue DAPT, metoprolol, Lipitor, amiodarone Labs reveiwed- replace electrolytes as needed Patient seen and examined by Dr. Ross. Plan of care discussed with patient and multidisciplinary team. The patient's questions were answered Give Lasix 20 IV today. Consultants: cardiology, cardiovascular surgery at 1228 at [phone] [facility] #:[id number] END OF REPORT [facility] 2024-11-11 09:32:00 [facility] ([facility]) Pain Management Progress Note REPORT#:[id number] REPORT STATUS: Signed REPORT INITIALIZATION DATE:11/11/24 TIME: 931 PATIENT: YUNIER PRATT UNIT #: [id number] ROOM/BED: 2204-1 : 72 AGE: 54 SEX: F ATTEND: Alejandro Bay MD ADM AUTHOR: Alejandro Cabrera JOB COACH/JOB DEVELOPER REPT SERVICE DT/TIME: 11/11/24931 * ALL edits or amendments must be made on the electronic/computer document * Subjective Chief complaint: Patient seen and examined. Chart/MAR reviewed Patient is in ICU. She continues to hurt. She has intense burning pain. She feels the medication needs to continue to be adjusted. She didnt sleep well. she notes she takes gabapentin 1200mg TID. Patient being seen for chest pain, acute postoperative pain, diabetic polyneuropathy, muscle spasms, constipation Patient is still requiring medications to help with managing current problems Patient is requiring IV narcotics to help manage breakthrough pain No fever/chills, chest pain, orthopnea, nausea/vomiting, pruritus, or hallucinations. 14-point ROS undertaken and is unremarkable except as noted. Objective General VS/I O: Vital Signs Date Temp Pulse Resp B/P B/P Mean Pulse Ox FiO2 11/10-11/11 98.0-99.0 71-84 1-33 107-144/58-78 80-97 87-100 Last Documented: Result Date Time Pulse Ox 94 11/11 0600 B/P 139/64 11/11 0600 B/P Mean 92 11/11 0600 Pulse 83 11/11 0600 Resp 23 11/11 0600 O2 Delivery Room air 11/11 0432 Temp 99.0 11/11 0400 O2 Flow Rate 4 11/10 0808 FiO2 36 11/10 0338 24 hour I O ending at 0700: 11/11 0700 11/10 1900 Intake Total 360 575 Output Total 1100 695 Balance -740 -120 Intake, Oral 360 575 Number Voids 6 Output, Chest 50 Tube Drainage Output, Urine 1100 645 Patient 72.5 kg 72.575 kg Weight Weight Standing scale Measurement Method PATIENT WEIGHT: Weight (lb): 159 Weight (oz): 13.36 Weight (kg): 72.500 Medications: Active Meds + DC'd Last 24 Hrs Ipratropium Hazard (ATROVENT) 500 MCG RTQ2H PRN PRN INH Cyanocobalamin (Vitamin B-12 500 mcg tab) 500 MCG DAILY PO Ferrous Sulfate (FERROUS SULFATE) 325 MG DAILY PO Quetiapine Fumarate (SeroqueL) 200 MG BEDTIME PO Bisacodyl (DULCOLAX) 10 MG ONCE PRN RECTAL Magnesium Hydroxide (MILK OF MAGNESIA) 30 ML ONCE PRN PO Insulin Human Lispro (Admelog) 0 AC HS SUBQ (PEND) Gabapentin (NEURONTIN) 1,200 MG BID PO Nicotine (NICODERM) 7 MG DAILY TRANSDERM (CKD) Methocarbamol (ROBAXIN) 1,000 MG Q8HR IV Amitriptyline HCl (ELAVIL) 25 MG BEDTIME PO Gabapentin (NEURONTIN) 1,200 MG BID PO (DC) Gabapentin (NEURONTIN) 600 MG ONCE ONE PO (DC) Naloxone HCl (NARCAN) 0.4 MG Q2M PRN PRN IV Acetaminophen (TYLENOL EXTRA STRENGTH) 1,000 MG Q6H PO Hydromorphone HCl (DILAUDID) 4 MG Q4H PRN PRN PO Hydromorphone HCl (DILAUDID) 0.5 MG Q3H PRN PRN IV Hydromorphone HCl (DILAUDID) 0.2 MG Q3H PRN PRN IV (DC) Hydromorphone HCl (DILAUDID) 0 .STK-MED ONE .ROUTE (DC) Clopidogrel Bisulfate (Plavix) 75 MG DAILY PO Gabapentin (NEURONTIN) 600 MG BID PO (DC) Methocarbamol (ROBAXIN) 500 MG TID PO (DC) Polyethylene Glycol (MIRALAX) 17 GM DAILY PO Pantoprazole (PROTONIX) 40 MG DAILY@0600 PO Oxycodone HCl (Oxycodone HCl) 10 MG Q6H PRN PRN PO (DC) Aspirin (ASPIRIN) 81 MG DAILY PO Amiodarone HCl (CORDARONE) 200 MG TID PO Atorvastatin Calcium (LIPITOR) 40 MG 2100 PO Docusate Sodium (COLACE) 100 MG BID PO Metoprolol Tartrate (LOPRESSOR) 12.5 MG Q12HR PO Mupirocin (BACTROBAN 2% 22 GM OINTMENT) 1 APPLIC BID NASAL Sennosides (Senna Lax 8.6 MG TABLET) 17.2 MG BEDTIME PO Ipratropium Hazard (ATROVENT) 500 MCG RTQ4H INH Acetaminophen (TYLENOL) 650 MG Q4H PRN PRN PO (DC) Acetaminophen (TYLENOL) 650 MG Q4H PRN PRN RECTAL Albumin Human (ALBUMINAR 25%) 25 GM ASDIR PRN IV (DC) Calcium Chloride (CALCIUM CHLORIDE) 1 GM ASDIR PRN IV Cefazolin Sodium (KEFZOL OR ANCEF) 3 GM ONCE ONE IV (DC) Sodium Chloride (SODIUM CHLORIDE 0.9%) 250 ML Dextrose/Water (DEXTROSE 10% IN WATER) 125 ML ASDIR PRN IV (CKD) Dextrose/Water (DEXTROSE 10% IN WATER) 250 ML ASDIR PRN IV (CKD) Epinephrine (ADRENALIN CHLORIDE) 4 MG ASDIR IV Dextrose/Water (DEXTROSE 5% WATER) 246 ML Glucagon (GLUCAGON) 1 MG ASDIR PRN IM Insulin Human Regular (MYXREDLIN 100 UNITS/NS 100ML) 100 ML ASDIR IV ( CKD) Magnesium Sulfate (MAGNESIUM SULFATE 4GM/SWFI 100ML) 100 ML ASDIR PRN IV Magnesium Sulfate (MAGNESIUM SULFATE 2GM/SWFI 50ML) 50 ML ASDIR PRN IV Magnesium Sulfate/Dextrose (MAGNESIUM SULFATE 1GM/D5W 100ML) 100 ML ASDIR PRN IV Nitroglycerin/Dextrose (NITROGLYCERIN 50,000MCG/D5W 250ML) 250 ML ASDIR IV Norepinephrine/Dextrose (Norepinephrine 8 MG/D5W 250 mL) 250 ML TITRATE IV Ondansetron HCl (ZOFRAN) 4 MG Q6H PRN PRN IV Potassium Chloride (KCL 20MEQ/SWFI 100ML) 100 ML ASDIR PRN IV Sodium Bicarbonate (SODIUM BICARBONATE) 50 MEQ ASDIR PRN IV Sodium Chloride (SODIUM CHLORIDE 0.9%) 250 ML Q24H IV Fluticasone Propionate (Flonase Nasal Baxter) 2 SPRAY DAILY NASAL (CKD) Physical Exam General appearance: alert, awake, oriented, no respiratory distress Head/eyes: atraumatic, EOMI, normocephalic, PERRLA ENT: moist mucosal membranes Neck: no JVD, supple/no meningismus Cardiovascular: regular rate rhythm, normal heart sounds, dressing over sternum Respiratory: clear to auscultation, aerating well, symmetric expansion Abdomen: soft, non-tender, no distention Extremities: moves all, no edema, no clubbing, no cyanosis 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, oriented X 3, normal speech, CNII-XII grossly intact Skin: dry Psychiatry: normal affect, normal judgment/insight, normal mood Results Findings/data: Laboratory Tests: 11/11 11/11 11/10 11/10 0745 0321 1644 1119 Chemistry Sodium (134 - 147 mEq/L) 135 Potassium (3.4 - 5.0 mEq/L) 4.5 Chloride (100 - 108 mEq/L) 106 Carbon Dioxide (21 - 33 mEq/l) 25 Anion Gap (0 - 20) 8 BUN (7 - 25 mg/dL) 12 Creatinine (0.6 - 1.3 mg/dL) 0.7 Glomerular Filtr Rate (90 - 95) 104.0 H Glucose (77 - 141 mg/dL) 317 H POC Glucose (70 - 110 MG/DL) 270 H 135 H 124 H Calcium (8.0 - 10.5 mg/dL) 8.6 Magnesium (1.6 - 2.6 mg/dL) 1.76 Total Bilirubin (0.0 - 1.0 mg/dL) 0.50 Direct Bilirubin (0.1 - 0.3 MG/DL) 0.20 Indirect Bilirubin (MG/DL) 0.30 AST (8 - 34 IUnit/L) 38 H ALT (10 - 49 IUnit/L) 15 Total Alk Phosphatase (20 - 125 IUnit/L) 73 Total Protein (5.7 - 8.2 g/dL) 6.1 Albumin (3.4 - 5.0 g/dL) 3.10 L Hematology WBC (4.5 - 11.0 x10 3/uL) 11.1 H RBC (3.54 - 5.02 x10 6/uL) 2.98 L Hgb (11.0 - 15.0 g/dL) 7.2 L Hct (33.0 - 45.0 %) 24.4 L MCV (81.0 - 99.0 fL) 81.9 MCH (27.0 - 33.0 pg) 24.2 L MCHC (33.0 - 37.0 g/dL) 29.5 L RDW (11.5 - 14.5 %) 16.9 H Plt Count (150 - 400 x10 3/uL) 113 L MPV (7.0 - 9.0 fL) 12.3 H Neut % (Auto) (56.0 - 77.0 %) 75.1 Lymph % (Auto) (14.0 - 32.0 %) 12.2 L Brule % (Auto) (4.8 - 9.0 %) 9.9 H Eos % (Auto) (0.3 - 3.7 %) 1.9 Baso % (Auto) (0.0 - 2.0 %) 0.4 Neut # (Auto) (2.0 - 7.6 x10 3/uL) 8.36 H Lymph # (Auto) (1.0 - 3.8 x10 3/uL) 1.35 Brule # (Auto) (0.1 - 0.8 x10 3/uL) 1.10 H Eos # (Auto) (0.0 - 0.2 x10 3/uL) 0.21 H Baso # (Auto) (0.0 - 0.2 x10 3/uL) 0.04 Abs Immat Gran (auto) (0.00 - 0.03 x10 3/uL) 0.05 H Immature Gran % (0.0 - 2.0 %) 0.5 Nucleated RBC % (0 - 0 %) 0.0 Nucleated RBCs # (Man) (0.0 - 0.1 x10 3/uL) 0.00 Diagnosis, Assessment Plan Free text A P: Patient is a 54 year old female who presents with the following: Chest pain, acute postoperative pain -S/P CABG on 11/09/24 -DC oxycodone 10mg q6h PRN -Acetaminophen 1000mg q6h -Dilaudid 4mg PO q4h PRN, pain scale 4-10 -incr Dilaudid 1mg IV q4h PRN, pain scale 7-10, second line (11/11) -stable Diabetic polyneuropathy -Amitriptyline 25mg at bedtime -Adj Gabapentin 1200mg BID (11/11) -stable Muscle spams -DC Robaxin 500mg PO TID -Methocarbamol 1000mg IV q8h -stable Insomnia -Takes seroquel 200mg QHS at home Constipation -Docusate 100mg BID -Miralax 17gm daily -Senna 2tabs at bedtime -stable Disposition: Rx: Pharmacy: [facility] Past medical history: DM, HTN, CAD Past surgical history: CABG, ALAA, PP, EVH Family history: NC Social history: denies drugs, alcohol, smoking Allergies: NKDA All pertinent diagnostics/labs from the last 24 hours and during the course of the admission were reviewed. Plan discussed with the patient and the nurse. All questions were answered. Patient will be monitored for deleterious side effects associated with opioids and sedative medications. Medications will be adjusted further clinical course. Risks versus benefits of opioid medications were reviewed to include, but not limited to respiratory depression, accidental overdose, altered mental status, sudden , constipation which could result in bowel obstruction, seizures, withdrawal, dependency/addiction, risk for falls. Goals: Daily pain control. Case reviewed and discussed with Dr. Keith who agrees with plan of care. 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 (1910) [address] [facility] [id number] [id number] [phone]) [address] [facility] [address] at 1142 RPT #:[id number] END OF REPORT [facility] 2024-11-11 06:53:00 [facility] ([facility] Critical Care Progress Note REPORT#:[id number] REPORT STATUS: Signed REPORT INITIALIZATION DATE:11/11/24 TIME: 652 PATIENT: YUNIER PRATT UNIT #: [id number] ROOM/BED: 2204-1 : 72 AGE: 54 SEX: F ATTEND: Alejandro Bay MD ADM AUTHOR: Jean Claude Smith MD REPT SERVICE DT/TIME: 11/11/24 0653 * ALL edits or amendments must be made on the electronic/computer document * Subjective Chief complaint: CP, SOB HPI: 52-year-old female with significant history of hypertension diabetes diabetic neuropathy history of CAD tobacco use who presented to an outside facility [facility] complaining of shortness of breath or chest pain. Diagnosed with elevated troponins and NSTEMI. Cardiac cath showed multivessel disease. Patient was transferred to [facility] for surgical vascularization evaluation. Patient today underwent CABG x 5 ASH to LAD SVG to diagonal VG to OM1 SVG to OM 2 SVG to RPDA bilateral lower extremity endoscopic vein harvest the left atrial appendage amputation. Patient received 1.5 L of crystalloids EBL was 200 Cell Saver received was 430 urine output through the case was 500. Cross-clamp time was 72 minutes cardiopulmonary bypass time was 78 minutes. Patient coming off pump was in V-fib that required x 1 shock and temporary pacing. Patient was extubated ultimately room and brought to the CVICU on norepinephrine at 3 mics per kilo per minute and insulin 2 units/h. Patient pCO2 was elevated at the initial gas and required BiPAP immediately after arrival. 11/10 Seen evaluated this morning. Postop day 1. Overnight significant issues with pain requiring multiple doses of narcotic agents. We will increase her Neurontin dose to her home dose. Up in a chair doing okay oxygen requirements are improved. Hemoglobin is 6.9 started low continues to be on insulin drip glucose well-controlled 11/11 Seen evaluate this morning postop day 2 on room air no pressors acute pain following the patient denies being on pain medications review of scripts show that she is on multiple narcotics as well as other medications for her neuropathy. Will restart as able. Patient requested nicotine patch and patient was transitioned off insulin drip was started on insulin sliding scale today. Objective General VS/I O Last Documented: Result Date Time Pulse Ox 94 11/11 0600 B/P 139/64 11/11 0600 B/P Mean 92 11/11 0600 Pulse 83 11/11 0600 Resp 23 11/11 0600 O2 Delivery Room air 11/11 0432 Temp 99.0 11/11 0400 O2 Flow Rate 4 11/10 0808 FiO2 36 11/10 0338 24 hour I O ending at 0700: 11/11 0700 11/10 1900 Intake Total 360 575 Output Total 1100 695 Balance -740 -120 Intake, Oral 360 575 Number Voids 6 Output, Chest 50 Tube Drainage Output, Urine 1100 645 Patient 72.5 kg 72.575 kg Weight Weight Standing scale Measurement Method PATIENT WEIGHT: Weight (lb): 159 Weight (oz): 13.36 Weight (kg): 72.500 Medications: Active Meds + DC'd Last 24 Hrs Ipratropium Hazard (ATROVENT) 500 MCG RTQ2H PRN PRN INH Cyanocobalamin (Vitamin B-12 500 mcg tab) 500 MCG DAILY PO Ferrous Sulfate (FERROUS SULFATE) 325 MG DAILY PO Quetiapine Fumarate (SeroqueL) 200 MG BEDTIME PO (UNV) Bisacodyl (DULCOLAX) 10 MG ONCE PRN RECTAL Magnesium Hydroxide (MILK OF MAGNESIA) 30 ML ONCE PRN PO Insulin Human Lispro (Admelog) 0 AC HS SUBQ (UNV) Gabapentin (NEURONTIN) 1,200 MG BID PO Nicotine (NICODERM) 7 MG DAILY TRANSDERM (CKD) Methocarbamol (ROBAXIN) 1,000 MG Q8HR IV Amitriptyline HCl (ELAVIL) 25 MG BEDTIME PO Gabapentin (NEURONTIN) 1,200 MG BID PO (DC) Gabapentin (NEURONTIN) 600 MG ONCE ONE PO (DC) Naloxone HCl (NARCAN) 0.4 MG Q2M PRN PRN IV Acetaminophen (TYLENOL EXTRA STRENGTH) 1,000 MG Q6H PO Hydromorphone HCl (DILAUDID) 4 MG Q4H PRN PRN PO Hydromorphone HCl (DILAUDID) 0.5 MG Q3H PRN PRN IV Hydromorphone HCl (DILAUDID) 0.2 MG Q3H PRN PRN IV (DC) Hydromorphone HCl (DILAUDID) 0 .STK-MED ONE .ROUTE (DC) Clopidogrel Bisulfate (Plavix) 75 MG DAILY PO Famotidine (PEPCID) 20 MG DAILY PO (DC) Gabapentin (NEURONTIN) 600 MG BID PO (DC) Methocarbamol (ROBAXIN) 500 MG TID PO (DC) Polyethylene Glycol (MIRALAX) 17 GM DAILY PO Pantoprazole (PROTONIX) 40 MG DAILY@0600 PO Oxycodone HCl (Oxycodone HCl) 10 MG Q6H PRN PRN PO (DC) Aspirin (ASPIRIN) 81 MG DAILY PO Amiodarone HCl (CORDARONE) 200 MG TID PO Atorvastatin Calcium (LIPITOR) 40 MG 2100 PO Docusate Sodium (COLACE) 100 MG BID PO Metoprolol Tartrate (LOPRESSOR) 12.5 MG Q12HR PO Mupirocin (BACTROBAN 2% 22 GM OINTMENT) 1 APPLIC BID NASAL Sennosides (Senna Lax 8.6 MG TABLET) 17.2 MG BEDTIME PO Ipratropium Hazard (ATROVENT) 500 MCG RTQ4H INH Acetaminophen (TYLENOL) 650 MG Q4H PRN PRN PO (DC) Acetaminophen (TYLENOL) 650 MG Q4H PRN PRN RECTAL Albumin Human (ALBUMINAR 25%) 25 GM ASDIR PRN IV (DC) Calcium Chloride (CALCIUM CHLORIDE) 1 GM ASDIR PRN IV Cefazolin Sodium (KEFZOL OR ANCEF) 3 GM ONCE ONE IV (DC) Sodium Chloride (SODIUM CHLORIDE 0.9%) 250 ML Dextrose/Water (DEXTROSE 10% IN WATER) 125 ML ASDIR PRN IV (CKD) Dextrose/Water (DEXTROSE 10% IN WATER) 250 ML ASDIR PRN IV (CKD) Epinephrine (ADRENALIN CHLORIDE) 4 MG ASDIR IV Dextrose/Water (DEXTROSE 5% WATER) 246 ML Glucagon (GLUCAGON) 1 MG ASDIR PRN IM Insulin Human Regular (MYXREDLIN 100 UNITS/NS 100ML) 100 ML ASDIR IV ( CKD) Magnesium Sulfate (MAGNESIUM SULFATE 4GM/SWFI 100ML) 100 ML ASDIR PRN IV Magnesium Sulfate (MAGNESIUM SULFATE 2GM/SWFI 50ML) 50 ML ASDIR PRN IV Magnesium Sulfate/Dextrose (MAGNESIUM SULFATE 1GM/D5W 100ML) 100 ML ASDIR PRN IV Nitroglycerin/Dextrose (NITROGLYCERIN 50,000MCG/D5W 250ML) 250 ML ASDIR IV Norepinephrine/Dextrose (Norepinephrine 8 MG/D5W 250 mL) 250 ML TITRATE IV Ondansetron HCl (ZOFRAN) 4 MG Q6H PRN PRN IV Potassium Chloride (KCL 20MEQ/SWFI 100ML) 100 ML ASDIR PRN IV Sodium Bicarbonate (SODIUM BICARBONATE) 50 MEQ ASDIR PRN IV Sodium Chloride (SODIUM CHLORIDE 0.9%) 250 ML Q24H IV Fluticasone Propionate (Flonase Nasal Baxter) 2 SPRAY DAILY NASAL (CKD) Physical Exam Head/eyes: EOMI, PERRLA ENT: moist mucosal membranes Neck: non-tender, no JVD Cardiovascular: normal capillary refill, normal heart sounds Respiratory: decreased breath sounds, prolonged exp phase, symmetric expansion, no distress Abdomen: soft, non-tender, no guarding Extremities: moves all, normal capillary refill 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: CNII-XII intact, normal speech, reflexes equal bilat, no motor deficits, no sensory deficits, somnolent but follows commands Results Findings/data: Laboratory Tests 11/11 11/11 11/10 11/10 0745 0321 1644 1119 Chemistry Sodium (134 - 147 mEq/L) 135 Potassium (3.4 - 5.0 mEq/L) 4.5 Chloride (100 - 108 mEq/L) 106 Carbon Dioxide (21 - 33 mEq/l) 25 Anion Gap (0 - 20) 8 BUN (7 - 25 mg/dL) 12 Creatinine (0.6 - 1.3 mg/dL) 0.7 Glomerular Filtr Rate (90 - 95) 104.0 H Glucose (77 - 141 mg/dL) 317 H POC Glucose (70 - 110 MG/DL) 270 H 135 H 124 H Calcium (8.0 - 10.5 mg/dL) 8.6 Magnesium (1.6 - 2.6 mg/dL) 1.76 Total Bilirubin (0.0 - 1.0 mg/dL) 0.50 Direct Bilirubin (0.1 - 0.3 MG/DL) 0.20 Indirect Bilirubin (MG/DL) 0.30 AST (8 - 34 IUnit/L) 38 H ALT (10 - 49 IUnit/L) 15 Total Alk Phosphatase (20 - 125 IUnit/L) 73 Total Protein (5.7 - 8.2 g/dL) 6.1 Albumin (3.4 - 5.0 g/dL) 3.10 L Laboratory Tests 03/23 0321 Hematology WBC (4.5 - 11.0 x10 3/uL) 11.1 H RBC (3.54 - 5.02 x10 6/uL) 2.98 L Hgb (11.0 - 15.0 g/dL) 7.2 L Hct (33.0 - 45.0 %) 24.4 L MCV (81.0 - 99.0 fL) 81.9 MCH (27.0 - 33.0 pg) 24.2 L MCHC (33.0 - 37.0 g/dL) 29.5 L RDW (11.5 - 14.5 %) 16.9 H Plt Count (150 - 400 x10 3/uL) 113 L MPV (7.0 - 9.0 fL) 12.3 H Neut % (Auto) (56.0 - 77.0 %) 75.1 Lymph % (Auto) (14.0 - 32.0 %) 12.2 L Brule % (Auto) (4.8 - 9.0 %) 9.9 H Eos % (Auto) (0.3 - 3.7 %) 1.9 Baso % (Auto) (0.0 - 2.0 %) 0.4 Neut # (Auto) (2.0 - 7.6 x10 3/uL) 8.36 H Lymph # (Auto) (1.0 - 3.8 x10 3/uL) 1.35 Brule # (Auto) (0.1 - 0.8 x10 3/uL) 1.10 H Eos # (Auto) (0.0 - 0.2 x10 3/uL) 0.21 H Baso # (Auto) (0.0 - 0.2 x10 3/uL) 0.04 Abs Immat Gran (auto) (0.00 - 0.03 x10 3/uL) 0.05 H Immature Gran % (0.0 - 2.0 %) 0.5 Nucleated RBC % (0 - 0 %) 0.0 Nucleated RBCs # (Man) (0.0 - 0.1 x10 3/uL) 0.00 Laboratory Tests 11/11/24 0321: [Embedded Image Not Available] Microbiology: 11/08 1555 NASAL: MSSA Surveillance Screen - ORD 11/08 1555 NASAL: MRSA DNA Surveillance Screen - ORD 03/20 0949 NASAL: MSSA Surveillance Screen - COMP 11/08 948 NASAL: MRSA DNA Surveillance Screen - COMP Diagnosis, Assessment Plan Problem list/A P: 1. Tobacco use 2. S/P CABG x 5 3. CAD (coronary artery disease) 4. DM neuropathy, type II diabetes mellitus 5. DM (diabetes mellitus) 6. HTN (hypertension) Free text A P: 52-year-old female significant past med history of hypertension diabetes CAD diabetic neuropathy current tobacco use who was evaluated outside facility for an NSTEMI and then found to have multivessel disease transferred for surgical vascularization. Assessment History hypertension History of diabetes History of CAD History of recent NSTEMI History of diabetic neuropathy Current tobacco use Status post CABG x 5 11/11 Seen and evaluated pain slightly better controlled now on after adjustments made by acute pain service. Glucose slightly elevated adjusted insulin sliding scale. Tolerating well p.o. Room air. Plan Continue care in CVICU Continue close hemodynamic metabolic respiratory neurological monitoring. Continue telemetry Advance diet as tolerated continue bowel regimen Patient does have a history of tobacco use. Patient requested nicotine patch.. Continue aggressive pulmonary toilet incentive spirometry and pulm clearance as needed. Monitor urinary output renal function and replete electrolytes as needed. Good urine output Monitor H H transfuse for hemoglobin less than 7 or active bleeding Mechanical DVT prophylaxis for now PT/OT ambulation as able Restart home medications as able Adjusted insulin sliding scale for better glucose control. Consultants: cardiology, cardiovascular surgery Critical care time: Minutes: 35 at 0839 RPT #:[id number] END OF REPORT [facility] 2024-11-11 04:08:00 [id number] [place] [address] PATIENT NAME: YUNIER PRATT ADMIT DATE: 11/08/24 ACCOUNT NO: [id number] ROOM NO: [id number] AGE: 54 REPORT TYPE: eELECTROCARDIOGRAM REPORT SEX: F ADMITTING PHYSICIAN:Angela Aceves DO ATTENDING PHYSICIAN:Flynn Becerra MD Order: [id number] Test Reason : CABG POD 2 Test Date/Time Stamp: TueNov 11 2024 04:08:49 Blood Pressure : / mmHG Vent. Rate : 080 BPM Atrial Rate : 080 BPM P-R Int : 170 ms QRS Dur : 096 ms QT Int : 382 ms P-R-T Axes : 038 037 -31 degrees QTc Int : 440 ms Normal sinus rhythm T wave abnormality, consider inferior ischemia Poor R wave progression Abnormal ECG When compared with ECG of 10-NOV-2024 04:38, No significant change was found Confirmed by NITO JACQUES ([id number]) on 11/15/2024 1:21:42 PM Referred By: Self Referred Confirmed by:NITO JACQUES at 1321 PATIENT NAME: YUNIER PRATT [facility] 2024-11-10 15:37:00 [facility] ([facility] Pain Management Consult Note REPORT#:[id number] REPORT STATUS: Signed REPORT INITIALIZATION DATE:11/10/24 TIME: 1536 PATIENT: YUNIER PRATT UNIT #: [id number] ROOM/BED: [place] [address] : 72 AGE: 54 SEX: F ATTEND: Alejandro Bay MD ADM AUTHOR: Alejandro Cabrera JOB COACH/JOB DEVELOPER REPT SERVICE DT/TIME: 11/10/241536 * ALL edits or amendments must be made on the electronic/computer document * History of Present Illness Requesting clinician: Alejandro Bay MD Chief complaint: Pain control post CABG PCP: PCP: No Primary or Family Physician HPI: Presented as a transfer for CABG evaluation s/p CABG. She complains of severe postoperative chest pain. The pain is throbbing and aching. The pain is mostly moderate to severe. The pain is not very tolerable with medication use. The pain worsens with movement or palpation. PAin management has been asked to assist with pain control. Review of Systems All systems rev neg: except as marked History - Adult longitudinal Past medical history: Reports: COPD, Coronary artery disease, Diabetes mellitus, Hypertension. Additional medical history: 1. DM 2. HTN 3. neuropathy Alcohol use: Denies EtOH use Drug use: Denies recreational drugs Smoking status for patients 13 years old or older: Current every day smoker Date last smoked: 11/07/24 Packs per day: 0.5 Pack years: 0 Medications: Home Medications: Medication Dose/Rte/Freq Days Qty Entered Last Max Daily Dose Reviewed DULoxetine (CYMBALTA) 20 MG PO DAILY 11/08/24 11/08/24 Strength: 20 MG CAP. 303 309 FUROSEMIDE (LASIX) 40 MG IV BID 11/08/24 11/08/24 Strength: 10 MG/ML VIAL 305 309 GABAPENTIN (NEURONTIN) 300 MG PO TID 11/08/24 11/08/24 Strength: 300 MG CAP 306 309 NICOTINE 21 MG TRANSDERM 11/08/24 11/08/24 (NICODERM 21 MG) DAILY 309 309 Strength: 21 MG/24 HOUR PATCH Current Hospital Medications: Anti-Infective Agents Sig/Clarke Start time Last Medication Dose Route Stop Time Status Admin Cefazolin Sodium 3 GM ONCE ONE 11/09 1600 DC 11/09 (KEFZOL OR ANCEF) IV 11/10 1159 1954 Sodium Chloride 250 ML (SODIUM CHLORIDE 0.9%) Cefazolin Sodium 2 GM PREOP ONCALL 11/09 0500 DC (ceFAZolin 2 GM Inj) IV 11/09 2359 Sodium Chloride 20 ML (SODIUM CHLORIDE) Vancomycin HCl 1,000 MG PREOP ONCALL 11/09 0500 DC (VANCOMYCIN HCL) IV 11/09 2359 Sodium Chloride 250 ML (SODIUM CHLORIDE 0.9%) Autonomic Drugs Sig/Clarke Start time Last Medication Dose Route Stop Time Status Admin Ipratropium Hazard 500 MCG RTQ2H PRN PRN 11/12 1558 AC (ATROVENT) INH 02/10 1557 Methocarbamol 1,000 MG Q8HR 11/10 2200 AC (ROBAXIN) IV 11/13 2159 Methocarbamol 500 MG TID 11/10 0900 DC 11/10 (ROBAXIN) PO 02/08 0859 1411 Methocarbamol 1,000 MG ONCE ONE 11/09 2145 DC 11/09 (ROBAXIN) IV 11/09 2146 2148 Ipratropium Hazard 500 MCG RTQ4H 11/09 1700 AC 11/10 (ATROVENT) INH 02/07 1659 1147 Ephedrine Sulfate 0 .STK-MED ONE 11/09 1643 DC (ePHEDrine sulfate) .ROUTE Epinephrine 4 MG ASDIR 11/09 1600 AC (ADRENALIN CHLORIDE) IV 02/07 1559 Dextrose/Water 246 ML (DEXTROSE 5% WATER) Norepinephrine/ 250 ML TITRATE 11/09 1600 AC Dextrose IV 02/07 1559 (Norepinephrine 8 MG/ D5W 250 mL) Rocuronium Hazard 0 .STK-MED ONE 11/09 1554 DC (ZEMURON) IV Nicotine 21 MG DAILY 11/08 0900 DC 11/08 (NICODERM) TRANSDERM 02/06 0859 0916 Blood Derivatives Sig/Clarke Start time Last Medication Dose Route Stop Time Status Admin Albumin Human 250 ML ONCE ONE 11/09 2130 DC 11/09 (ALBUMINAR 5% 12.5GM/ IV 11/09 215 2130 250ML) Albumin Human 25 GM ASDIR PRN 11/09 1600 AC (ALBUMINAR 25%) IV 11/10 1558 Blood Formation,Coagulation Sig/Clarke Start time Last Medication Dose Route Stop Time Status Admin Ferrous Sulfate 325 MG DAILY 11/12 0900 AC (FERROUS SULFATE) PO 02/10 0859 Clopidogrel Bisulfate 75 MG DAILY 11/10 0900 AC 11/10 (Plavix) PO 02/08 0859 0805 Protamine Sulfate 0 .STK-MED ONE 11/09 1733 DC (PROTAMINE SULFATE) IV Heparin Sodium 5,000 UNIT ASDIR PRN PRN 11/08 0600 DC 11/08 (HEPARIN 5000 UNITS/ IV 02/06 0559 1121 ML) Heparin Sodium 3,000 UNIT ASDIR PRN PRN 11/08 0600 DC 11/09 (HEPARIN 5000 UNITS/ IV 02/06 0559 0227 ML) Heparin Sodium 500 ML ASDIR 11/08 0230 DC 11/09 (Porcine) IV 02/06 0229 0508 (HEPARIN 25,000 UNITS/ 1/2NS 500ML) Cardiovascular Drugs Sig/Clarke Start time Last Medication Dose Route Stop Time Status Admin Amiodarone HCl 200 MG TID 11/09 2099 AC 11/10 (CORDARONE) PO 02/07 2059 1410 Atorvastatin Calcium 40 MG 2100 11/09 2100 AC 11/09 (LIPITOR) PO 12/09 2058 2118 Metoprolol Tartrate 12.5 MG Q12HR 11/09 2100 AC 11/10 (LOPRESSOR) PO 02/07 205 0804 Nicardipine HCl 0 .STK-MED ONE 11/09 1600 DC (niCARdipine HCl) IV Nitroglycerin/ 250 ML ASDIR 11/09 1600 AC Dextrose IV 02/07 1559 (NITROGLYCERIN 50,000MCG/D5W 250ML) Verapamil HCl 16.6 MG .Q24H ONE 11/09 0500 DC (ISOPTIN) IV 11/10 0459 Heparin Sodium 1,660 UNIT (Porcine) (HEPARIN SODIUM) Sodium Bicarbonate 0.7 ML (SODIUM BICARBONATE) Nitroglycerin/ 8.3 MG Dextrose (NITROGLYCERIN 50MG/ D5W 250ML) Lactated Ringer's 949.5 ML (LACTATED RINGERS) Atorvastatin Calcium 40 MG 2100 11/08 2100 DC 11/08 (LIPITOR) PO 12/08 2058 2146 Hydralazine HCl 10 MG Q6H PRN PRN 11/08 194 DC (APRESOLINE) IV 02/06 194 Carvedilol 6.25 MG C BK DIN 11/08 0800 DC 11/08 (COREG) PO 02/06 0759 1702 Central Nervous System Agents Sig/Clarke Start time Last Medication Dose Route Stop Time Status Admin Amitriptyline HCl 25 MG BEDTIME 11/10 2100 AC (ELAVIL) PO 02/08 2059 Acetaminophen 1,000 MG Q6H 11/10 1600 AC (TYLENOL EXTRA PO 02/07 1559 STRENGTH) Hydromorphone HCl 4 MG Q4H PRN PRN 11/10 1545 AC (DILAUDID) PO 12/11 1300 Hydromorphone HCl 0.5 MG Q3H PRN PRN 11/10 1545 AC (DILAUDID) IV 12/11 1300 Hydromorphone HCl 0.2 MG Q3H PRN PRN 11/10 1145 DC 11/10 (DILAUDID) IV 11/15 1144 1411 Hydromorphone HCl 0 .STK-MED ONE 11/10 1142 DC (DILAUDID) .ROUTE Gabapentin 600 MG BID 11/10 0900 AC 11/10 (NEURONTIN) PO 02/08 0859 0806 Fentanyl Citrate 25 MCG ONCE ONE 11/10 0645 DC 11/10 (SUBLIMAZE) IV 11/10 0646 0648 Hydromorphone HCl 0.5 MG ONCE ONE 11/10 0400 DC 11/10 (DILAUDID) IV 11/10 0401 0402 Oxycodone HCl 10 MG Q6H PRN PRN 11/09 2330 DC 11/10 (Oxycodone HCl) PO 11/14 2329 1009 Aspirin 81 MG DAILY 11/09 2157 AC 11/10 (ASPIRIN) PO 02/07 215 0804 Gabapentin 300 MG TID 11/09 2099 DC 11/09 (NEURONTIN) PO 02/07 Quetiapine Fumarate 200 MG BEDTIME 11/09 2100 DC (SeroqueL) PO 02/07 2059 Fentanyl Citrate 25 MCG ONCE ONE 11/09 2044 DC 11/09 (SUBLIMAZE) IV 11/09 Acetaminophen 100 ML Q6H 11/09 1845 DC 11/09 (OFIRMEV 10MG/ML) IV 11/10 658 193 Fentanyl Citrate 0 .STK-MED ONE 11/09 182 DC (SUBLIMAZE) .ROUTE Ketorolac 0 .STK-MED ONE 11/09 1825 DC Tromethamine .ROUTE (TORADOL 30 MG) Hydromorphone HCl 0 .STK-MED ONE 11/09 1750 DC (DILAUDID) .ROUTE Propofol 20 ML .STK-MED ONE 11/09 1748 DC (DIPRIVAN 200MG/20ML IV INJECTION) Acetaminophen 650 MG Q4H PRN PRN 11/09 1600 DC (TYLENOL) PO 02/07 1559 Acetaminophen 650 MG Q4H PRN PRN 11/09 1600 AC (TYLENOL) RECTAL 02/07 1559 Magnesium Sulfate 100 ML ASDIR PRN 11/09 1600 AC (MAGNESIUM SULFATE IV 02/07 1559 4GM/SWFI 100ML) Magnesium Sulfate 50 ML ASDIR PRN 11/09 1600 AC (MAGNESIUM SULFATE IV 02/07 1559 2GM/SWFI 50ML) Magnesium Sulfate/ 100 ML ASDIR PRN 11/09 1600 AC 11/10 Dextrose IV 02/07 155 0353 (MAGNESIUM SULFATE 1GM/D5W 100ML) Oxycodone HCl 5 MG Q4H PRN PRN 11/09 1600 DC (ROXICODONE) PO 11/14 1559 Oxycodone HCl 10 MG Q4H PRN PRN 11/09 1600 DC (ROXICODONE) PO 11/14 1559 Gabapentin 1,200 MG TID 11/08 1700 DC 11/08 (NEURONTIN) PO 02/06 1659 1702 Acetaminophen 1,000 MG PREOP ONCALL 11/08 1600 DC 11/09 (TYLENOL EXTRA PO 02/06 1559 0751 STRENGTH) Gabapentin 200 MG PREOP ONCALL 11/08 1600 DC 11/09 (NEURONTIN) PO 12/08 2359 0750 Aspirin 81 MG DAILY 11/08 0900 DC 11/08 (ASPIRIN) PO 02/06 0859 0918 Duloxetine HCl 20 MG DAILY 11/08 0900 DC 11/08 (CYMBALTA) PO 02/06 0859 0917 Acetaminophen 650 MG Q4H PRN PRN 11/08 0230 DC (TYLENOL) PO 02/06 0229 Hydrocodone Bitart/ 1 TAB Q6H PRN PRN 11/08 0230 DC 11/09 Acetaminophen PO 11/13 0229 0459 (NORCO 5/325) Morphine Sulfate 2 MG Q4H PRN PRN 11/08 0230 DC (morphine SULFATE) IV 11/13 0229 Electrolytic, Caloric, And Prosper Sig/Clarke Start time Last Medication Dose Route Stop Time Status Admin Sodium Chloride 50 ML .STK-MED ONE 11/09 1748 DC (SODIUM CHLORIDE IV 0.9%) Calcium Chloride 0 .STK-MED ONE 11/09 1722 DC (CALCIUM CHLORIDE) IV Calcium Chloride 1 GM ASDIR PRN 11/09 1600 AC (CALCIUM CHLORIDE) IV 02/07 1559 Dextrose/Water 125 ML ASDIR PRN 11/09 1600 CKD (DEXTROSE 10% IN IV 02/07 1559 WATER) Dextrose/Water 250 ML ASDIR PRN 11/09 1600 CKD (DEXTROSE 10% IN IV 02/07 155 WATER) Potassium Chloride 100 ML ASDIR PRN 11/09 1600 AC (KCL 20MEQ/SWFI IV 02/07 155 100ML) Sodium Bicarbonate 50 MEQ ASDIR PRN 11/09 1600 AC (SODIUM BICARBONATE) IV 02/07 1559 Sodium Chloride 250 ML Q24H 11/09 1600 AC (SODIUM CHLORIDE IV 02/07 1559 0.9%) Sodium Chloride 100 ML ASDIR PRN 11/08 1600 DC (SODIUM CHLORIDE IV 11/10 1549 0.9%) Sodium Chloride 100 ML ASDIR PRN 11/08 1600 DC (SODIUM CHLORIDE IV 11/10 1549 0.9%) Sodium Chloride 100 ML ASDIR PRN 11/08 1600 DC (SODIUM CHLORIDE IV 11/10 1549 0.9%) Furosemide 40 MG BID 11/08 0900 DC 11/08 (LASIX 40 mg/4 mL IV 02/06 0859 2150 INJECTION) Dextrose/Water 125 ML ASDIR PRN 11/08 0230 DC (DEXTROSE 10% IN IV 02/06 229 WATER) Dextrose/Water 250 ML ASDIR PRN 11/08 0230 DC (DEXTROSE 10% IN IV 02/06 229 WATER) Eye, Ear, Nose And Throat (Een Sig/Clarke Start time Last Medication Dose Route Stop Time Status Admin Fluticasone 2 SPRAY DAILY 11/09 0900 CKD 11/10 Propionate NASAL 12/09 0859 0804 (Flonase Nasal Baxter) Gastrointestinal Drugs Sig/Clarke Start time Last Medication Dose Route Stop Time Status Admin Bisacodyl 10 MG ONCE PRN 11/11 1200 AC (DULCOLAX) RECTAL 02/09 1159 Magnesium Hydroxide 30 ML ONCE PRN 11/11 1200 AC (MILK OF MAGNESIA) PO Famotidine 20 MG DAILY 11/10 0900 DC (PEPCID) PO 02/08 0859 Polyethylene Glycol 17 GM DAILY 11/10 0900 AC 11/10 (MIRALAX) PO 02/08 0859 0805 Pantoprazole 40 MG DAILY@0600 11/10 0600 AC 11/10 (PROTONIX) PO 02/08 0559 0537 Docusate Sodium 100 MG BID 11/09 2100 AC 11/10 (COLACE) PO 02/07 2059 0804 Sennosides 17.2 MG BEDTIME 11/09 2100 AC 11/09 (Senna Lax 8.6 MG PO 02/07 2059 211 TABLET) Ondansetron HCl 4 MG Q6H PRN PRN 11/09 1600 AC (ZOFRAN) IV 02/07 1559 Ondansetron HCl 4 MG Q4H PRN PRN 11/08 0230 DC (ZOFRAN) IV 02/06 022 Hormones And Synthetic Substit Sig/Clarke Start time Last Medication Dose Route Stop Time Status Admin Glucagon 1 MG ASDIR PRN 11/09 1600 AC (GLUCAGON) IM 02/07 1559 Insulin Human Regular 100 ML ASDIR 11/09 1600 CKD (MYXREDLIN 100 UNITS/ IV 02/07 1559 NS 100ML) Insulin Human Lispro 0 AC HS 11/08 0730 DC 11/09 (Admelog) SUBQ 02/06 0729 0831 Glucagon 1 MG ASDIR PRN 11/08 0230 DC (GLUCAGON) IM 02/06 0229 Miscellaneous Therapeutic Agen Sig/Clarke Start time Last Medication Dose Route Stop Time Status Admin Sugammadex Sodium 0 .STK-MED ONE 11/09 1741 DC (BRIDION) IV Skin And Mucous Membrane Agent Sig/Clarke Start time Last Medication Dose Route Stop Time Status Admin Mupirocin 1 APPLIC BID 11/09 2100 AC 11/10 (BACTROBAN 2% 22 GM NASAL 11/14 0901 0803 OINTMENT) Mupirocin 1 APPLIC BID 11/09 0930 DC (BACTROBAN 2% 22 GM NASAL 11/13 2101 OINTMENT) Vitamins Sig/Clarke Start time Last Medication Dose Route Stop Time Status Admin Cyanocobalamin 500 MCG DAILY 11/12 0900 AC (Vitamin B-12 500 PO 02/10 0859 mcg tab) Allergies: Coded Allergies: No Known Allergies (11/08/24) Ambulatory status: Independent Objective Physical Exam VS/I O: Last Documented: Result Date Time B/P 121/69 11/10 1500 B/P Mean 90 11/10 1500 Pulse 75 11/10 1500 Resp 21 11/10 1500 Pulse Ox 87 11/10 1200 Temp 98.6 11/10 0900 O2 Delivery Nasal cannula 11/10 0808 O2 Flow Rate 4 11/10 0808 FiO2 36 11/10 0338 24 hour I O ending at 0700: 11/10 0700 11/09 1900 Intake Total 2014.00 Output Total 1130 250 Balance 884.00 -250 Intake, IV 1774.00 Intake, Oral 240 Output, Chest 475 140 Tube Drainage Output, Urine 655 110 Patient 72.8 kg Weight Weight Standing scale Measurement Method PATIENT WEIGHT: Weight (lb): 160 Weight (oz): 7.94 Weight (kg): 72.575 General appearance: alert, awake, oriented Head/eyes: atraumatic, EOMI, normocephalic, PERRLA Neck: no JVD, supple/no meningismus Cardiovascular: regular rate rhythm, normal heart sounds, dressing over sternum Respiratory: clear to auscultation, aerating well, symmetric expansion Abdomen: soft, non-tender, no distention Extremities: moves all, no edema, no clubbing, no cyanosis 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, oriented X 3, normal speech, CNII-XII grossly intact Skin: dressing over sternum Psychiatry: normal affect, normal judgment/insight, normal mood Results Findings/data: Laboratory Tests: 11/10 11/10 11/10 11/10 11/10 1119 0721 0616 0514 0204 Blood Gas Puncture Site Art Line Art Line O2 Saturation (90 - 100 %) 96.4 99.4 ABG pH (7.35 - 7.45) 7.359 7.353 ABG pCO2 (35.0 - 45 mmHg) 45.0 50.9 *H ABG pO2 (80 - 100.0 mmHg) 88.9 169.9 H ABG HCO3 (22.0 - 26.0 MMOL/L) 25.4 28.3 *H ABG Total CO2 (22 - 29) 26.8 29.9 H ABG Base Excess (0 - +/ MMOL/L) -0.1 L 2.8 ABG Hematocrit (33 - 45 %) 23 L 21 L ABG Hemoglobin (11.0 - 15.0 G/DL) 7.8 L 7.3 L Sodium (134 - 147 mmol/L) 143 144 Potassium (3.4 - 5.0 mmol/L) 4.3 4.4 Chloride (100 - 108 mmol/L) 107 106 Ionized Calcium (1.12 - 1.32 MMOL/L) 1.35 H 1.41 H Temperature (F) 98.4 98.2 O2 Delivery Device Cannula Cannula Chemistry POC Creatinine (0.6 - 1.3 mg/dL) 0.6 0.5 L POC Glucose (70 - 110 MG/DL) 124 H 153 H 187 H POC Glucose (mg/dL) (70 - 110 MG/DL) 175 H 120 H 11/10 11/10 11/09 11/09 0124 0016 6477 6985 Blood Gas Puncture Site Art Line O2 Saturation (90 - 100 %) 99.7 ABG pH (7.35 - 7.45) 7.320 L ABG pCO2 (35.0 - 45 mmHg) 50.6 *H ABG pO2 (80 - 100.0 mmHg) 229.7 *H ABG HCO3 (22.0 - 26.0 MMOL/L) 26.1 H ABG Total CO2 (22 - 29) 27.6 ABG Base Excess (0 - +/ MMOL/L) 0.0 ABG Hematocrit (33 - 45 %) 22 L ABG Hemoglobin (11.0 - 15.0 G/DL) 7.3 L Sodium (134 - 147 mmol/L) 143 Potassium (3.4 - 5.0 mmol/L) 4.3 Chloride (100 - 108 mmol/L) 108 Ionized Calcium (1.12 - 1.32 MMOL/L) 1.38 H Temperature (F) 97.9 O2 Delivery Device Cannula Chemistry Sodium (134 - 147 mEq/L) 141 Potassium (3.4 - 5.0 mEq/L) 4.5 Chloride (100 - 108 mEq/L) 113 H Carbon Dioxide (21 - 33 mEq/l) 26 Anion Gap (0 - 20) 6 BUN (7 - 25 mg/dL) 14 Creatinine (0.6 - 1.3 mg/dL) 0.6 POC Creatinine (0.6 - 1.3 mg/dL) 0.5 L Glomerular Filtr Rate (90 - 95) 107.9 H Glucose (77 - 141 mg/dL) 117 POC Glucose (70 - 110 MG/DL) 127 H 143 H POC Glucose (mg/dL) (70 - 110 MG/DL) 141 H Calcium (8.0 - 10.5 mg/dL) 8.5 Magnesium (1.6 - 2.6 mg/dL) 2.14 Total Bilirubin (0.0 - 1.0 mg/dL) 0.50 Direct Bilirubin (0.1 - 0.3 MG/DL) 0.20 Indirect Bilirubin (MG/DL) 0.30 AST (8 - 34 IUnit/L) 39 H ALT (10 - 49 IUnit/L) 14 Total Alk Phosphatase (20 - 125 IUnit/L) 65 Total Protein (5.7 - 8.2 g/dL) 5.7 Albumin (3.4 - 5.0 g/dL) 3.20 L Hematology WBC (4.5 - 11.0 x10 3/uL) 11.3 H RBC (3.54 - 5.02 x10 6/uL) 2.84 L Hgb (11.0 - 15.0 g/dL) 6.9 L Hct (33.0 - 45.0 %) 23.0 L MCV (81.0 - 99.0 fL) 81.0 MCH (27.0 - 33.0 pg) 24.3 L MCHC (33.0 - 37.0 g/dL) 30.0 L RDW (11.5 - 14.5 %) 16.4 H Plt Count (150 - 400 x10 3/uL) 94 L MPV (7.0 - 9.0 fL) 10.7 H Neut % (Auto) (56.0 - 77.0 %) 89.2 H Lymph % (Auto) (14.0 - 32.0 %) 4.9 L Brule % (Auto) (4.8 - 9.0 %) 5.4 Eos % (Auto) (0.3 - 3.7 %) 0.0 L Baso % (Auto) (0.0 - 2.0 %) 0.1 Neut # (Auto) (2.0 - 7.6 x10 3/uL) 10.11 H Lymph # (Auto) (1.0 - 3.8 x10 3/uL) 0.56 L Brule # (Auto) (0.1 - 0.8 x10 3/uL) 0.61 Eos # (Auto) (0.0 - 0.2 x10 3/uL) 0.00 Baso # (Auto) (0.0 - 0.2 x10 3/uL) 0.01 Abs Immat Gran (auto) (0.00 - 0.03 x10 3/uL) 0.05 H Immature Gran % (0.0 - 2.0 %) 0.4 Nucleated RBC % (0 - 0 %) 0.0 Nucleated RBCs # (Man) (0.0 - 0.1 x10 3/uL) 0.00 Platelet Estimate (150 - 400 x10 3/uL) 99 L Plt Morphology Comment NORMAL 11/09 Blood Gas Puncture Site Art Line O2 Saturation (90 - 100 %) 98.4 ABG pH (7.35 - 7.45) 7.338 L ABG pCO2 (35.0 - 45 mmHg) 51.0 *H ABG pO2 (80 - 100.0 mmHg) 120.6 H ABG HCO3 (22.0 - 26.0 MMOL/L) 27.4 H ABG Total CO2 (22 - 29) 29.0 ABG Base Excess (0 - +/ MMOL/L) 1.6 ABG Hematocrit (33 - 45 %) 25 L ABG Hemoglobin (11.0 - 15.0 G/DL) 8.7 L Sodium (134 - 147 mmol/L) 145 Potassium (3.4 - 5.0 mmol/L) 4.2 Chloride (100 - 108 mmol/L) 110 H Ionized Calcium (1.12 - 1.32 MMOL/L) 1.38 H Temperature (F) 98.4 O2 Delivery Device Cannula Chemistry POC Creatinine (0.6 - 1.3 mg/dL) 0.6 POC Glucose (mg/dL) (70 - 110 MG/DL) 152 H Coagulation INR (0.8 - 1.2) 1.3 H PTT (Ravalli) (25.0 - 39.5 Seconds) 26.6 PT Patient/Control Mix (9.3 - 12.9 SECONDS) 14.0 H TEG R Time Citrated (4.6 - 9.1 min) 5.9 TEG K Time Citrated (0.8 - 2.1 min) 1.2 TEG Alpha Angle Citr (63 - 78 degrees) 74.0 TEG Max Ampl Citrated (52 - 69 mm) 59.6 TEG Max Ampl Citr Rapid (52 - 70 mm) 61.4 TEG Clot Time Rpd w Hep (4.3 - 8.3 mins) 5.4 Func Fibrinogen MA (15 - 32 mm) 19.1 Func Fibrinogen Level (278 - 581 mg/dL) 348.5 11/09 11/09 11/09 1836 1757 1742 Blood Gas Puncture Site Art Line O2 Saturation (90 - 100 %) 97.9 ABG pH (7.35 - 7.45) 7.310 L ABG pCO2 (35.0 - 45 mmHg) 60.3 *H ABG pO2 (80 - 100.0 mmHg) 115.3 H ABG PO2/FiO2 Ratio (mm/Hg) 192.10 ABG HCO3 (22.0 - 26.0 MMOL/L) 30.4 *H ABG Total CO2 (22 - 29) 32.2 H ABG Base Excess (0 - +/ MMOL/L) 4.1 H ABG Hematocrit (33 - 45 %) 24 L ABG Hemoglobin (11.0 - 15.0 G/DL) 8.3 L Tereso Test N/A Sodium (134 - 147 mmol/L) 146 Potassium (3.4 - 5.0 mmol/L) 4.4 Chloride (100 - 108 mmol/L) 110 H Ionized Calcium (1.12 - 1.32 MMOL/L) 1.45 H Lactic Acid (0.9 - 1.7 mmol/l) 1.6 Temperature (F) 98.4 O2 Delivery Device simple mask FiO2 (%) 60.0 Chemistry Sodium (134 - 147 mEq/L) 142 Potassium (3.4 - 5.0 mEq/L) 4.4 Chloride (100 - 108 mEq/L) 113 H Carbon Dioxide (21 - 33 mEq/l) 25 Anion Gap (0 - 20) 8 BUN (7 - 25 mg/dL) 13 Creatinine (0.6 - 1.3 mg/dL) 0.6 POC Creatinine (0.6 - 1.3 mg/dL) 0.6 Glomerular Filtr Rate (90 - 95) 107.9 H Glucose (77 - 141 mg/dL) 136 POC Glucose (mg/dL) (70 - 110 MG/DL) 151 H Calcium (8.0 - 10.5 mg/dL) 8.4 Magnesium (1.6 - 2.6 mg/dL) 2.30 Coagulation INR (0.8 - 1.2) 1.4 H PTT (Ravalli) (25.0 - 39.5 Seconds) 25.1 PT Patient/Control Mix (9.3 - 12.9 SECONDS) 15.3 H Activated Coag Time (74 - 137 SEC) 106 Hematology WBC (4.5 - 11.0 x10 3/uL) 18.3 H RBC (3.54 - 5.02 x10 6/uL) 3.23 L Hgb (11.0 - 15.0 g/dL) 8.0 L Hct (33.0 - 45.0 %) 26.2 L MCV (81.0 - 99.0 fL) 81.1 MCH (27.0 - 33.0 pg) 24.8 L MCHC (33.0 - 37.0 g/dL) 30.5 L RDW (11.5 - 14.5 %) 16.7 H Plt Count (150 - 400 x10 3/uL) 151 MPV (7.0 - 9.0 fL) 10.9 H Neut % (Auto) (56.0 - 77.0 %) 87.5 H Lymph % (Auto) (14.0 - 32.0 %) 6.1 L Brule % (Auto) (4.8 - 9.0 %) 4.6 L Eos % (Auto) (0.3 - 3.7 %) 0.8 Baso % (Auto) (0.0 - 2.0 %) 0.3 Neut # (Auto) (2.0 - 7.6 x10 3/uL) 15.97 H Lymph # (Auto) (1.0 - 3.8 x10 3/uL) 1.12 Brule # (Auto) (0.1 - 0.8 x10 3/uL) 0.84 H Eos # (Auto) (0.0 - 0.2 x10 3/uL) 0.15 Baso # (Auto) (0.0 - 0.2 x10 3/uL) 0.05 Abs Immat Gran (auto) (0.00 - 0.03 x10 3/uL) 0.13 H Immature Gran % (0.0 - 2.0 %) 0.7 Nucleated RBC % (0 - 0 %) 0.0 Nucleated RBCs # (Man) (0.0 - 0.1 x10 3/uL) 0.00 11/09 11/09 11/09 11/09 11/09 1739 1728 1719 1656 1649 Blood Gas O2 Saturation (90 - 100 %) 98.1 100.0 100.0 ABG pH (7.35 - 7.45) 7.448 7.386 7.390 ABG pCO2 (35.0 - 45 mmHg) 34.2 L 42.2 42.1 ABG pO2 (80 - 100.0 mmHg) 99.5 477.9 *H 407.2 *H ABG HCO3 (22.0 - 26.0 MMOL/L) 23.7 25.3 25.5 ABG Total CO2 (22 - 29) 24.7 26.6 26.8 ABG Base Excess (0 - +/ MMOL/L) -0.2 L 0.2 0.5 ABG Hematocrit (33 - 45 %) 22 L 23 L 20 L ABG Hemoglobin (11.0 - 15.0 G/DL) 7.4 L 7.9 L 6.9 L Sodium (134 - 147 mmol/L) 146 143 141 Potassium (3.4 - 5.0 mmol/L) 3.7 4.7 4.1 Chloride (100 - 108 mmol/L) 112 H 105 104 Ionized Calcium (1.12 - 1.32 MMOL/L) 1.35 H 1.19 1.19 Lactic Acid (0.9 - 1.7 mmol/l) 1.9 H 1.5 1.5 Chemistry POC Creatinine (0.6 - 1.3 mg/dL) 0.5 L 0.6 0.6 POC Glucose (mg/dL) (70 - 110 MG/DL) 139 H 138 H 147 H Coagulation Activated Coag Time (74 - 137 SEC) 579 H 458 H 11/09 11/09 11/09 1629 1620 1559 Blood Gas O2 Saturation (90 - 100 %) 100.0 ABG pH (7.35 - 7.45) 7.463 H ABG pCO2 (35.0 - 45 mmHg) 40.0 ABG pO2 (80 - 100.0 mmHg) 449.1 *H ABG HCO3 (22.0 - 26.0 MMOL/L) 28.6 *H ABG Total CO2 (22 - 29) 29.8 H ABG Base Excess (0 - +/ MMOL/L) 4.4 H ABG Hematocrit (33 - 45 %) 22 L ABG Hemoglobin (11.0 - 15.0 G/DL) 7.3 L Sodium (134 - 147 mmol/L) 144 Potassium (3.4 - 5.0 mmol/L) 3.7 Chloride (100 - 108 mmol/L) 104 Ionized Calcium (1.12 - 1.32 MMOL/L) 1.14 Lactic Acid (0.9 - 1.7 mmol/l) 0.9 Chemistry POC Creatinine (0.6 - 1.3 mg/dL) 0.6 POC Glucose (mg/dL) (70 - 110 MG/DL) 160 H Coagulation Activated Coag Time (74 - 137 SEC) 619 H 498 H Recent Impressions: RADIOLOGY - XR CHEST 1 V 11/09 1909 Report Impression - Status: SIGNED Entered: 11/09/[id number] IMPRESSION: Patient status post CABG. No pneumothorax. There is a right IJ line identified and probable mediastinal drain . Mild fluid overload appearing improved to the preoperative exam Impression By: Harinder - Terra Menchaca M.D. RADIOLOGY - XR CHEST 1 V 11/10 5714 Report Impression - Status: SIGNED Entered: 11/10/2024 1053 IMPRESSION: 1. Shallow inspiration with pulmonary vascular congestion. 2. Small pleural effusions. Impression By: [email or web address] - Robbie Barnett M.D. Diagnosis, Assessment Plan Free text A P: Patient is a 54 year old female who presents with the following: Chest pain, acute postoperative pain -S/P CABG on 11/09/24 -DC oxycodone 10mg q6h PRN -incr Acetaminophen 1000mg q6h -Start Dilaudid 4mg PO q4h PRN, pain scale 4-10 -incr Dilaudid 0.5mg IV q3h PRN, pain scale 7-10, second line Diabetic polyneuropathy -Start Amitriptyline 25mg at bedtime -Gabapentin 600mg BID Muscle spams -DC Robaxin 500mg PO TID -Start Methocarbamol 1000mg IV q8h Insomnia -Takes seroquel 200mg QHS at home Constipation -Docusate 100mg BID -Miralax 17gm daily -Senna 2tabs at bedtime Disposition: Rx: Pharmacy: [facility] [place] Past medical history: DM, HTN, CAD Past surgical history: CABG, ALAA, PP, EVH Family history: NC Social history: denies drugs, alcohol, smoking Allergies: NKDA All pertinent diagnostics/labs from the last 24 hours and during the course of the admission were reviewed. Plan discussed with the patient and the nurse. All questions were answered. Patient will be monitored for deleterious side effects associated with opioids and sedative medications. Medications will be adjusted further clinical course. Risks versus benefits of opioid medications were reviewed to include, but not limited to respiratory depression, accidental overdose, altered mental status, sudden , constipation which could result in bowel obstruction, seizures, withdrawal, dependency/addiction, risk for falls. Goals: Daily pain control. Case reviewed and discussed with Dr. Keith who agrees with plan of care. [place] [employer] records reviewed: Total Prescriptions 6 Total Private Pay 0 Total Prescribers 4 Total Pharmacies 2 2024 2024 1 HYDROCODONE-ACETAMIN 5-325 MG 20.00 3 [place] [id number] [facility] (1911) 0 33.33 MME Comm Ins [place] 2024 2024 1 TRAMADOL-ACETAMINOPHN 37.5-325 20.00 3 Pa Tho [id number] [facility] (7195) 0 50.00 MME Comm Ins [place] 06/08/2023 06/08/2023 1 ACETAMINOPHEN-COD #3 TABLET 10.00 10 Ma Gopi [id number] [facility] ( 5805) 0 4.50 MME Comm Ins [place] [facility] [phone] [facility] [id number] [facility] [phone] [facility] [id number] at 0932 RPT #:[id number] END OF REPORT [facility] 2024-11-10 13:28:00 [facility] Hospitalist Progress Note REPORT#:[id number] REPORT STATUS: Signed REPORT INITIALIZATION DATE:11/10/24 TIME: 1327 PATIENT: YUNIER PRATT UNIT #: [id number] ROOM/BED: [place] [address] : 72 AGE: 54 SEX: F ATTEND: Alejandro Bay MD ADM AUTHOR: Alejandro Bay MD REPT SERVICE DT/TIME: 11/10/24 1328 * ALL edits or amendments must be made on the electronic/computer document * Subjective Chief complaint: c/o bitterly of post op pain. Objective General VS/I O: Vital Signs: Date Time Temp Pulse Resp B/P B/P Pulse O2 O2 Flow FiO2 Mean Ox Delivery Rate 11/10 0808 100 Nasal 4 cannula 11/10 0800 Nasal cannula 11/10 0700 98.6 80 2 107/58 76 100 11/10 0600 98.6 83 21 113/59 81 100 11/10 0500 82 19 117/31 66 99 11/10 0400 Nasal 4 cannula 11/10 0400 98.2 83 23 123/70 91 100 11/10 0338 100 Nasal 4 36 cannula 11/10 0300 98.2 81 7 127/71 93 100 11/10 0230 98.2 81 1 126/67 91 100 11/10 0200 98.2 80 11 127/69 92 100 11/10 0130 97.9 79 12 124/70 92 100 11/10 0100 98.1 80 12 127/71 94 100 11/10 0030 97.9 80 5 128/70 93 100 11/10 0000 6 11/10 0000 97.9 77 1 126/68 92 100 11/09 2317 100 High flow 8 52 nasal cannula 11/09 2300 98.1 78 8 129/71 94 100 11/09 2200 98.1 77 12 126/68 92 100 11/09 2157 98.1 77 10 132/74 98 100 11/09 2100 98.6 76 21 100/57 74 100 11/09 2000 98.1 11/10 1999 BiPAP 40 11/10 1999 98.4 75 14 101/57 74 100 11/09 1900 97.9 78 18 99/64 76 100 11/09 1859 71 100 40 11/09 1859 100 BiPAP 40 11/09 1844 79 100 40 24 hour I O ending at 0700: 11/10 0700 11/09 1900 Intake Total 2014.00 Output Total 1130 250 Balance 884.00 -250 Intake, IV 1774.00 Intake, Oral 240 Output, Chest 475 140 Tube Drainage Output, Urine 655 110 Patient 72.8 kg Weight Weight Standing scale Measurement Method PATIENT WEIGHT: Weight (lb): 160 Weight (oz): 7.94 Weight (kg): 72.575 Physical Exam General appearance: alert, awake Head/Eyes: atraumatic, normocephalic ENT: moist mucosal membranes, normal dentition Neck: full range of motion, supple/no meningismus Cardiovascular: normal heart sounds, regular rate rhythm, no murmur Respiratory: aerating well, clear to auscultation, symmetric expansion, no distress Abdomen: non-tender, soft, no distention, no guarding, no rebound Extremities: moves all, no edema 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, oriented X 3, CNII-XII intact, no motor deficits, no sensory deficits Skin: dry, intact, no rash Psychiatry: normal affect, normal mood Results Radiology data: Laboratory Tests 11/10/24 0124: [Embedded Image Not Available] 11/09/24 1757: [Embedded Image Not Available] 11/09/24 0137: [Embedded Image Not Available] Current Medications Sig/Clarke Start time Last Medication Dose Route Stop Time Status Admin Ipratropium Hazard 500 MCG RTQ2H PRN PRN 11/12 1558 AC INH 02/10 1557 Cyanocobalamin 500 MCG DAILY 11/12 0900 AC PO 02/10 0859 Ferrous Sulfate 325 MG DAILY 11/12 0900 AC PO 02/10 0859 Bisacodyl 10 MG ONCE PRN 11/11 1200 AC RECTAL 02/09 1159 Magnesium Hydroxide 30 ML ONCE PRN 11/11 1200 AC PO Hydromorphone HCl 0.2 MG Q3H PRN PRN 11/10 1145 AC 11/10 IV 11/15 1144 1144 Hydromorphone HCl 0 .STK-MED ONE 11/10 1142 DC .ROUTE Clopidogrel Bisulfate 75 MG DAILY 11/10 0900 AC 11/10 PO 02/08 0859 0805 Famotidine 20 MG DAILY 11/10 0900 DC PO 02/08 0859 Gabapentin 600 MG BID 11/10 0900 AC 11/10 PO 02/08 0859 0806 Methocarbamol 500 MG TID 11/10 0900 AC 11/10 PO 02/08 0859 0806 Polyethylene Glycol 17 GM DAILY 11/10 0900 AC 11/10 PO 02/08 0859 0805 Fentanyl Citrate 25 MCG ONCE ONE 11/10 0645 DC 11/10 IV 11/10 0646 0648 Pantoprazole 40 MG DAILY@0600 11/10 0600 AC 11/10 PO 02/08 0559 0537 Hydromorphone HCl 0.5 MG ONCE ONE 11/10 0400 DC 11/10 IV 11/10 0401 0402 Oxycodone HCl 10 MG Q6H PRN PRN 11/09 2330 AC 11/10 PO 11/14 2329 1009 Aspirin 81 MG DAILY 11/09 2158 AC 11/10 PO 02/07 2157 0804 Methocarbamol 1,000 MG ONCE ONE 11/09 2144 DC 11/09 IV 11/09 2145 2148 Albumin Human 250 ML ONCE ONE 11/09 2129 DC 11/09 IV 11/09 215 2130 Amiodarone HCl 200 MG TID 11/09 2099 AC 11/10 PO 02/07 2059 0805 Atorvastatin Calcium 40 MG 2100 11/09 2099 AC 11/09 PO 12/09 Docusate Sodium 100 MG BID 11/09 2099 AC 11/10 PO 02/07 2059 0804 Gabapentin 300 MG TID 11/09 2099 DC 11/09 PO 02/07 Metoprolol Tartrate 12.5 MG Q12HR 11/09 2099 AC 11/10 PO 02/07 2059 0804 Mupirocin 1 APPLIC BID 11/09 2099 AC 11/10 NASAL 11/14 0901 0803 Quetiapine Fumarate 200 MG BEDTIME 11/09 2099 DC PO 02/07 2059 Sennosides 17.2 MG BEDTIME 11/09 2099 AC 11/09 PO 02/07 Fentanyl Citrate 25 MCG ONCE ONE 11/09 204 DC 11/09 IV 11/09 Acetaminophen 100 ML Q6H 11/09 1845 DC 11/09 IV 11/10 0659 1937 Fentanyl Citrate 0 .STK-MED ONE 11/09 1825 DC .ROUTE Ketorolac 0 .STK-MED ONE 11/09 1825 DC Tromethamine .ROUTE Hydromorphone HCl 0 .STK-MED ONE 11/09 1750 DC .ROUTE Propofol 20 ML .STK-MED ONE 11/09 1748 DC IV Sodium Chloride 50 ML .STK-MED ONE 11/09 1748 DC IV Sugammadex Sodium 0 .STK-MED ONE 11/09 1741 DC IV Protamine Sulfate 0 .STK-MED ONE 11/09 1733 DC IV Calcium Chloride 0 .STK-MED ONE 11/09 1722 DC IV Ipratropium Hazard 500 MCG RTQ4H 11/09 1700 AC 11/10 INH 02/07 1659 1147 Ephedrine Sulfate 0 .STK-MED ONE 11/09 1643 DC .ROUTE Acetaminophen 650 MG Q4H PRN PRN 11/09 1600 AC PO 02/07 1559 Acetaminophen 650 MG Q4H PRN PRN 11/09 1600 AC RECTAL 02/07 1559 Albumin Human 25 GM ASDIR PRN 11/09 1600 AC IV 11/10 1558 Calcium Chloride 1 GM ASDIR PRN 11/09 1600 AC IV 02/07 1559 Cefazolin Sodium 3 GM ONCE ONE 11/09 1600 DC 11/09 Sodium Chloride 250 ML IV 11/10 1159 1954 Dextrose/Water 125 ML ASDIR PRN 11/09 1600 CKD IV 02/07 1559 Dextrose/Water 250 ML ASDIR PRN 11/09 1600 CKD IV 02/07 1559 Epinephrine 4 MG ASDIR 11/09 1600 AC Dextrose/Water 246 ML IV 02/07 1559 Glucagon 1 MG ASDIR PRN 11/09 1600 AC IM 02/07 1559 Insulin Human Regular 100 ML ASDIR 11/09 1600 CKD IV 02/07 1559 Magnesium Sulfate 100 ML ASDIR PRN 11/09 1600 AC IV 02/07 1559 Magnesium Sulfate 50 ML ASDIR PRN 11/09 1600 AC IV 02/07 1559 Magnesium Sulfate/ 100 ML ASDIR PRN 11/09 1600 AC 11/10 Dextrose IV 02/07 1559 0353 Nicardipine HCl 0 .STK-MED ONE 11/09 1600 DC IV Nitroglycerin/ 250 ML ASDIR 11/09 1600 AC Dextrose IV 02/07 1559 Norepinephrine/ 250 ML TITRATE 11/09 1600 AC Dextrose IV 02/07 1559 Ondansetron HCl 4 MG Q6H PRN PRN 11/09 1600 AC IV 02/07 1559 Oxycodone HCl 5 MG Q4H PRN PRN 11/09 1600 DC PO 11/14 1559 Oxycodone HCl 10 MG Q4H PRN PRN 11/09 1600 DC PO 11/14 1559 Potassium Chloride 100 ML ASDIR PRN 11/09 1600 AC IV 02/07 1559 Sodium Bicarbonate 50 MEQ ASDIR PRN 11/09 1600 AC IV 02/07 1559 Sodium Chloride 250 ML Q24H 11/09 1600 AC IV 02/07 1559 Rocuronium Hazard 0 .STK-MED ONE 11/09 1554 DC IV Mupirocin 1 APPLIC BID 11/09 0930 DC NASAL 11/13 2101 Fluticasone 2 SPRAY DAILY 11/09 0900 CKD 11/10 Propionate NASAL 12/09 0859 0804 Cefazolin Sodium 2 GM PREOP ONCALL 11/09 0500 DC Sodium Chloride 20 ML IV 11/09 2359 Vancomycin HCl 1,000 MG PREOP ONCALL 11/09 0500 DC Sodium Chloride 250 ML IV 11/09 2359 Verapamil HCl 16.6 MG .Q24H ONE 11/09 0500 DC Heparin Sodium 1,660 UNIT IV 11/10 0459 (Porcine) Sodium Bicarbonate 0.7 ML Nitroglycerin/ 8.3 MG Dextrose Lactated Ringer's 949.5 ML Atorvastatin Calcium 40 MG 2100 11/08 2100 DC 11/08 PO 12/08 2059 2146 Hydralazine HCl 10 MG Q6H PRN PRN 11/08 1945 DC IV 02/06 1944 Gabapentin 1,200 MG TID 11/08 1700 DC 11/08 PO 02/06 1659 1702 Acetaminophen 1,000 MG PREOP ONCALL 11/08 1600 DC 11/09 PO 02/06 1559 0751 Gabapentin 200 MG PREOP ONCALL 11/08 1600 DC 11/09 PO 12/08 2359 0750 Sodium Chloride 100 ML ASDIR PRN 11/08 1600 DC IV 11/10 1549 Sodium Chloride 100 ML ASDIR PRN 11/08 1600 DC IV 11/10 1549 Sodium Chloride 100 ML ASDIR PRN 11/08 1600 DC IV 11/10 1549 Aspirin 81 MG DAILY 11/08 0900 DC 11/08 PO 02/06 0859 0918 Duloxetine HCl 20 MG DAILY 11/08 0900 DC 11/08 PO 02/06 0859 0917 Furosemide 40 MG BID 11/08 0900 DC 11/08 IV 02/06 0859 2150 Nicotine 21 MG DAILY 11/08 0900 DC 11/08 TRANSDERM 02/06 0859 0916 Carvedilol 6.25 MG C BK DIN 11/08 0800 DC 11/08 PO 02/06 0759 1702 Insulin Human Lispro 0 AC HS 11/08 0730 DC 11/09 SUBQ 02/06 0729 0831 Heparin Sodium 5,000 UNIT ASDIR PRN PRN 11/08 0600 DC 11/08 IV 02/06 0559 1121 Heparin Sodium 3,000 UNIT ASDIR PRN PRN 11/08 0600 DC 11/09 IV 02/06 0559 0227 Acetaminophen 650 MG Q4H PRN PRN 11/08 0230 DC PO 02/06 0229 Dextrose/Water 125 ML ASDIR PRN 11/08 0230 DC IV 02/06 0229 Dextrose/Water 250 ML ASDIR PRN 11/08 0230 DC IV 02/06 0229 Glucagon 1 MG ASDIR PRN 11/08 0230 DC IM 02/06 0229 Heparin Sodium 500 ML ASDIR 11/08 0230 DC 11/09 (Porcine) IV 02/06 0229 0508 Hydrocodone Bitart/ 1 TAB Q6H PRN PRN 11/08 023 DC 11/09 Acetaminophen PO 11/13 228 045 Morphine Sulfate 2 MG Q4H PRN PRN 11/08 229 DC IV 11/13 228 Ondansetron HCl 4 MG Q4H PRN PRN 11/08 023 DC IV 02/06 229 Laboratory Tests: 11/10 11/10 11/10 11/10 11/10 1119 0721 0616 0514 0204 Blood Gas Puncture Site Art Line Art Line O2 Saturation (90 - 100 %) 96.4 99.4 ABG pH (7.35 - 7.45) 7.359 7.353 ABG pCO2 (35.0 - 45 mmHg) 45.0 50.9 *H ABG pO2 (80 - 100.0 mmHg) 88.9 169.9 H ABG HCO3 (22.0 - 26.0 MMOL/L) 25.4 28.3 *H ABG Total CO2 (22 - 29) 26.8 29.9 H ABG Base Excess (0 - +/ MMOL/L) -0.1 L 2.8 ABG Hematocrit (33 - 45 %) 23 L 21 L ABG Hemoglobin (11.0 - 15.0 G/DL) 7.8 L 7.3 L Sodium (134 - 147 mmol/L) 143 144 Potassium (3.4 - 5.0 mmol/L) 4.3 4.4 Chloride (100 - 108 mmol/L) 107 106 Ionized Calcium (1.12 - 1.32 MMOL/L) 1.35 H 1.41 H Temperature (F) 98.4 98.2 O2 Delivery Device Cannula Cannula Chemistry POC Creatinine (0.6 - 1.3 mg/dL) 0.6 0.5 L POC Glucose (70 - 110 MG/DL) 124 H 153 H 187 H POC Glucose (mg/dL) (70 - 110 MG/DL) 175 H 120 H 11/10 11/10 11/09 11/09 0124 0013 7574 1738 Blood Gas Puncture Site Art Line O2 Saturation (90 - 100 %) 99.7 ABG pH (7.35 - 7.45) 7.320 L ABG pCO2 (35.0 - 45 mmHg) 50.6 *H ABG pO2 (80 - 100.0 mmHg) 229.7 *H ABG HCO3 (22.0 - 26.0 MMOL/L) 26.1 H ABG Total CO2 (22 - 29) 27.6 ABG Base Excess (0 - +/ MMOL/L) 0.0 ABG Hematocrit (33 - 45 %) 22 L ABG Hemoglobin (11.0 - 15.0 G/DL) 7.3 L Sodium (134 - 147 mmol/L) 143 Potassium (3.4 - 5.0 mmol/L) 4.3 Chloride (100 - 108 mmol/L) 108 Ionized Calcium (1.12 - 1.32 MMOL/L) 1.38 H Temperature (F) 97.9 O2 Delivery Device Cannula Chemistry Sodium (134 - 147 mEq/L) 141 Potassium (3.4 - 5.0 mEq/L) 4.5 Chloride (100 - 108 mEq/L) 113 H Carbon Dioxide (21 - 33 mEq/l) 26 Anion Gap (0 - 20) 6 BUN (7 - 25 mg/dL) 14 Creatinine (0.6 - 1.3 mg/dL) 0.6 POC Creatinine (0.6 - 1.3 mg/dL) 0.5 L Glomerular Filtr Rate (90 - 95) 107.9 H Glucose (77 - 141 mg/dL) 117 POC Glucose (70 - 110 MG/DL) 127 H 143 H POC Glucose (mg/dL) (70 - 110 MG/DL) 141 H Calcium (8.0 - 10.5 mg/dL) 8.5 Magnesium (1.6 - 2.6 mg/dL) 2.14 Total Bilirubin (0.0 - 1.0 mg/dL) 0.50 Direct Bilirubin (0.1 - 0.3 MG/DL) 0.20 Indirect Bilirubin (MG/DL) 0.30 AST (8 - 34 IUnit/L) 39 H ALT (10 - 49 IUnit/L) 14 Total Alk Phosphatase (20 - 125 IUnit/L) 65 Total Protein (5.7 - 8.2 g/dL) 5.7 Albumin (3.4 - 5.0 g/dL) 3.20 L Hematology WBC (4.5 - 11.0 x10 3/uL) 11.3 H RBC (3.54 - 5.02 x10 6/uL) 2.84 L Hgb (11.0 - 15.0 g/dL) 6.9 L Hct (33.0 - 45.0 %) 23.0 L MCV (81.0 - 99.0 fL) 81.0 MCH (27.0 - 33.0 pg) 24.3 L MCHC (33.0 - 37.0 g/dL) 30.0 L RDW (11.5 - 14.5 %) 16.4 H Plt Count (150 - 400 x10 3/uL) 94 L MPV (7.0 - 9.0 fL) 10.7 H Neut % (Auto) (56.0 - 77.0 %) 89.2 H Lymph % (Auto) (14.0 - 32.0 %) 4.9 L Brule % (Auto) (4.8 - 9.0 %) 5.4 Eos % (Auto) (0.3 - 3.7 %) 0.0 L Baso % (Auto) (0.0 - 2.0 %) 0.1 Neut # (Auto) (2.0 - 7.6 x10 3/uL) 10.11 H Lymph # (Auto) (1.0 - 3.8 x10 3/uL) 0.56 L Brule # (Auto) (0.1 - 0.8 x10 3/uL) 0.61 Eos # (Auto) (0.0 - 0.2 x10 3/uL) 0.00 Baso # (Auto) (0.0 - 0.2 x10 3/uL) 0.01 Abs Immat Gran (auto) (0.00 - 0.03 x10 3/uL) 0.05 H Immature Gran % (0.0 - 2.0 %) 0.4 Nucleated RBC % (0 - 0 %) 0.0 Nucleated RBCs # (Man) (0.0 - 0.1 x10 3/uL) 0.00 Platelet Estimate (150 - 400 x10 3/uL) 99 L Plt Morphology Comment NORMAL 11/09 Blood Gas Puncture Site Art Line O2 Saturation (90 - 100 %) 98.4 ABG pH (7.35 - 7.45) 7.338 L ABG pCO2 (35.0 - 45 mmHg) 51.0 *H ABG pO2 (80 - 100.0 mmHg) 120.6 H ABG HCO3 (22.0 - 26.0 MMOL/L) 27.4 H ABG Total CO2 (22 - 29) 29.0 ABG Base Excess (0 - +/ MMOL/L) 1.6 ABG Hematocrit (33 - 45 %) 25 L ABG Hemoglobin (11.0 - 15.0 G/DL) 8.7 L Sodium (134 - 147 mmol/L) 145 Potassium (3.4 - 5.0 mmol/L) 4.2 Chloride (100 - 108 mmol/L) 110 H Ionized Calcium (1.12 - 1.32 MMOL/L) 1.38 H Temperature (F) 98.4 O2 Delivery Device Cannula Chemistry POC Creatinine (0.6 - 1.3 mg/dL) 0.6 POC Glucose (mg/dL) (70 - 110 MG/DL) 152 H Coagulation INR (0.8 - 1.2) 1.3 H PTT (Dalton) (25.0 - 39.5 Seconds) 26.6 PT Patient/Control Mix (9.3 - 12.9 SECONDS) 14.0 H TEG R Time Citrated (4.6 - 9.1 min) 5.9 TEG K Time Citrated (0.8 - 2.1 min) 1.2 TEG Alpha Angle Citr (63 - 78 degrees) 74.0 TEG Max Ampl Citrated (52 - 69 mm) 59.6 TEG Max Ampl Citr Rapid (52 - 70 mm) 61.4 TEG Clot Time Rpd w Hep (4.3 - 8.3 mins) 5.4 Func Fibrinogen MA (15 - 32 mm) 19.1 Func Fibrinogen Level (278 - 581 mg/dL) 348.5 11/09 11/09 11/09 1836 1757 1742 Blood Gas Puncture Site Art Line O2 Saturation (90 - 100 %) 97.9 ABG pH (7.35 - 7.45) 7.310 L ABG pCO2 (35.0 - 45 mmHg) 60.3 *H ABG pO2 (80 - 100.0 mmHg) 115.3 H ABG PO2/FiO2 Ratio (mm/Hg) 192.10 ABG HCO3 (22.0 - 26.0 MMOL/L) 30.4 *H ABG Total CO2 (22 - 29) 32.2 H ABG Base Excess (0 - +/ MMOL/L) 4.1 H ABG Hematocrit (33 - 45 %) 24 L ABG Hemoglobin (11.0 - 15.0 G/DL) 8.3 L Tereso Test N/A Sodium (134 - 147 mmol/L) 146 Potassium (3.4 - 5.0 mmol/L) 4.4 Chloride (100 - 108 mmol/L) 110 H Ionized Calcium (1.12 - 1.32 MMOL/L) 1.45 H Lactic Acid (0.9 - 1.7 mmol/l) 1.6 Temperature (F) 98.4 O2 Delivery Device simple mask FiO2 (%) 60.0 Chemistry Sodium (134 - 147 mEq/L) 142 Potassium (3.4 - 5.0 mEq/L) 4.4 Chloride (100 - 108 mEq/L) 113 H Carbon Dioxide (21 - 33 mEq/l) 25 Anion Gap (0 - 20) 8 BUN (7 - 25 mg/dL) 13 Creatinine (0.6 - 1.3 mg/dL) 0.6 POC Creatinine (0.6 - 1.3 mg/dL) 0.6 Glomerular Filtr Rate (90 - 95) 107.9 H Glucose (77 - 141 mg/dL) 136 POC Glucose (mg/dL) (70 - 110 MG/DL) 151 H Calcium (8.0 - 10.5 mg/dL) 8.4 Magnesium (1.6 - 2.6 mg/dL) 2.30 Coagulation INR (0.8 - 1.2) 1.4 H PTT (Ravalli) (25.0 - 39.5 Seconds) 25.1 PT Patient/Control Mix (9.3 - 12.9 SECONDS) 15.3 H Activated Coag Time (74 - 137 SEC) 106 Hematology WBC (4.5 - 11.0 x10 3/uL) 18.3 H RBC (3.54 - 5.02 x10 6/uL) 3.23 L Hgb (11.0 - 15.0 g/dL) 8.0 L Hct (33.0 - 45.0 %) 26.2 L MCV (81.0 - 99.0 fL) 81.1 MCH (27.0 - 33.0 pg) 24.8 L MCHC (33.0 - 37.0 g/dL) 30.5 L RDW (11.5 - 14.5 %) 16.7 H Plt Count (150 - 400 x10 3/uL) 151 MPV (7.0 - 9.0 fL) 10.9 H Neut % (Auto) (56.0 - 77.0 %) 87.5 H Lymph % (Auto) (14.0 - 32.0 %) 6.1 L Brule % (Auto) (4.8 - 9.0 %) 4.6 L Eos % (Auto) (0.3 - 3.7 %) 0.8 Baso % (Auto) (0.0 - 2.0 %) 0.3 Neut # (Auto) (2.0 - 7.6 x10 3/uL) 15.97 H Lymph # (Auto) (1.0 - 3.8 x10 3/uL) 1.12 Brule # (Auto) (0.1 - 0.8 x10 3/uL) 0.84 H Eos # (Auto) (0.0 - 0.2 x10 3/uL) 0.15 Baso # (Auto) (0.0 - 0.2 x10 3/uL) 0.05 Abs Immat Gran (auto) (0.00 - 0.03 x10 3/uL) 0.13 H Immature Gran % (0.0 - 2.0 %) 0.7 Nucleated RBC % (0 - 0 %) 0.0 Nucleated RBCs # (Man) (0.0 - 0.1 x10 3/uL) 0.00 11/09 11/09 11/09 11/09 11/09 1739 1728 1719 1656 1649 Blood Gas O2 Saturation (90 - 100 %) 98.1 100.0 100.0 ABG pH (7.35 - 7.45) 7.448 7.386 7.390 ABG pCO2 (35.0 - 45 mmHg) 34.2 L 42.2 42.1 ABG pO2 (80 - 100.0 mmHg) 99.5 477.9 *H 407.2 *H ABG HCO3 (22.0 - 26.0 MMOL/L) 23.7 25.3 25.5 ABG Total CO2 (22 - 29) 24.7 26.6 26.8 ABG Base Excess (0 - +/ MMOL/L) -0.2 L 0.2 0.5 ABG Hematocrit (33 - 45 %) 22 L 23 L 20 L ABG Hemoglobin (11.0 - 15.0 G/DL) 7.4 L 7.9 L 6.9 L Sodium (134 - 147 mmol/L) 146 143 141 Potassium (3.4 - 5.0 mmol/L) 3.7 4.7 4.1 Chloride (100 - 108 mmol/L) 112 H 105 104 Ionized Calcium (1.12 - 1.32 MMOL/L) 1.35 H 1.19 1.19 Lactic Acid (0.9 - 1.7 mmol/l) 1.9 H 1.5 1.5 Chemistry POC Creatinine (0.6 - 1.3 mg/dL) 0.5 L 0.6 0.6 POC Glucose (mg/dL) (70 - 110 MG/DL) 139 H 138 H 147 H Coagulation Activated Coag Time (74 - 137 SEC) 579 H 458 H 11/09 11/09 11/09 11/09 11/09 1629 1620 1559 1551 1456 Blood Gas O2 Saturation (90 - 100 %) 100.0 99.8 ABG pH (7.35 - 7.45) 7.463 H 7.429 ABG pCO2 (35.0 - 45 mmHg) 40.0 39.3 ABG pO2 (80 - 100.0 mmHg) 449.1 *H 229.4 *H ABG HCO3 (22.0 - 26.0 MMOL/L) 28.6 *H 26.1 H ABG Total CO2 (22 - 29) 29.8 H 27.3 ABG Base Excess (0 - +/ MMOL/L) 4.4 H 1.6 ABG Hematocrit (33 - 45 %) 22 L 26 L ABG Hemoglobin (11.0 - 15.0 G/DL) 7.3 L 8.8 L Sodium (134 - 147 mmol/L) 144 142 Potassium (3.4 - 5.0 mmol/L) 3.7 4.2 Chloride (100 - 108 mmol/L) 104 106 Ionized Calcium (1.12 - 1.32 MMOL/L) 1.14 1.22 Lactic Acid (0.9 - 1.7 mmol/l) 0.9 0.7 L Chemistry POC Creatinine (0.6 - 1.3 mg/dL) 0.6 0.4 L POC Glucose (mg/dL) (70 - 110 MG/DL) 160 H 195 H Coagulation Activated Coag Time (74 - 137 SEC) 619 H 498 H 135 11/09 1452 Blood Gas O2 Saturation (90 - 100 %) 100.0 ABG pH (7.35 - 7.45) 7.422 ABG pCO2 (35.0 - 45 mmHg) 38.5 ABG pO2 (80 - 100.0 mmHg) 545.9 *H ABG HCO3 (22.0 - 26.0 MMOL/L) 25.1 ABG Total CO2 (22 - 29) 26.3 ABG Base Excess (0 - +/ MMOL/L) 0.7 ABG Hematocrit (33 - 45 %) 24 L ABG Hemoglobin (11.0 - 15.0 G/DL) 8.3 L Sodium (134 - 147 mmol/L) 145 Potassium (3.4 - 5.0 mmol/L) 3.8 Chloride (100 - 108 mmol/L) 108 Ionized Calcium (1.12 - 1.32 MMOL/L) 1.19 Lactic Acid (0.9 - 1.7 mmol/l) < 0.3 L Chemistry POC Creatinine (0.6 - 1.3 mg/dL) 0.5 L POC Glucose (mg/dL) (70 - 110 MG/DL) 195 H Recent Impressions: RADIOLOGY - XR CHEST 1 V 11/09 191 Report Impression - Status: SIGNED Entered: 11/09/2024 1923 IMPRESSION: Patient status post CABG. No pneumothorax. There is a right IJ line identified and probable mediastinal drain . Mild fluid overload appearing improved to the preoperative exam Impression By: [email or web address] - Terra Menchaca M.D. RADIOLOGY - XR CHEST 1 V 11/10 0724 Report Impression - Status: SIGNED Entered: 11/10/2024 1053 IMPRESSION: 1. Shallow inspiration with pulmonary vascular congestion. 2. Small pleural effusions. Impression By: [email or web address] - Robbie Barnett M.D. Diagnosis, Assessment Plan Hospital course to date: 11/10- POD #1 CABG. c/o post op pain. d/w CV surgery team and pain management consulted Consultants: cardiology, cardiovascular surgery Free Text DxA P Notes Free text DxA P notes: 54 yo F w PMHx of HTN, DM presented for evaluation of SOB and chest pain at [facility]. Patient was found to have NSTEMI. 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 Patient was transported to [facility] for CABG evaluation. Assessment and Plan NSTEMI Multivessel Coronary Artery Disease - s/p CABG 11/09 - POD #1. ask pain management to help w/ post op pain History of Essential Hypertension - Resume home BP meds when appropriate - lopressor 12.5 BID. History of Diabetes Mellitus Type-2, Uncontrolled - HGB A1c 8.0 - Blood sugar monitoring - Insulin SS History of Diabetic Neuropathy - Continue Gabapentin 1,200MG PO TID (verified) - Continue home Cymbalta History of Anxiety - Continue Seroquel 200MG PO bedtime Diet: Cardiac DVT ppx: Heparin gtt Pepcid FULL CODE Dispo: POD #1. CABG. at 1331 RPT #:[id number] END OF REPORT [facility] 2024-11-10 10:51:00 [facility] ([facility]) Cardiothoracic Surgery Prog REPORT#:[id number] REPORT STATUS: Signed REPORT INITIALIZATION DATE:11/10/24 TIME: 1051 PATIENT: YUNIER PRATT UNIT #: [id number] ROOM/BED: [place] [id number] : 74 AGE: 54 SEX: F ATTEND: Leyda Trotter MD ADM AUTHOR: Elise Harvey Physic REPT SERVICE DT/TIME: 11/10/24 1051 * ALL edits or amendments must be made on the electronic/computer document * General Post-op: day 1 Status post: 11/09/24 1. Coronary artery bypass graft surgery x5 (ASH to LAD, saphenous vein to diagonal, saphenous vein to first marginal, saphenous vein to second marginal, saphenous vein to PDA). 2. Amputation of left atrial appendage. 3. Endoscopic vein harvest bilateral greater saphenous vein. 4. Posterior pericardiotomy. Subjective Chief complaint: Post op Review of Systems Constitutional: Reports: fatigue, generalized weakness. Respiratory: Denies: HARTMAN (dyspnea on exertion), SOB. Cardiovascular: Reports: chest pain. All systems rev neg: except as marked Objective General VS/I O Last Documented: Result Date Time Pulse Ox 100 11/10 0808 O2 Delivery Nasal cannula 11/10 08 O2 Flow Rate 4 11/10 0808 B/P 107/58 11/10 07 B/P Mean 76 11/10 07 Temp 98.6 11/10 07 Pulse 80 11/10 0700 Resp 2 11/10 07 FiO2 36 11/10 0338 24 hour I O ending at 0700: 11/10 0700 11/09 1900 Intake Total 2014. 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 She was ruled in for NSTEMI on her blood work. 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 Patient was transferred to [facility] for further evaluation and workup of multivessel CAD. Patient denies any alcohol or drug use. He does report half pack a day smoking for the past 40 years. 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 Assessment/plan 1. Hypertension 2. Diabetes on insulin 3. NSTEMI 4. Multivessel CAD Patient seen and examined. Patient will begin workup for consideration for coronary bypass graft surgery. Appropriate preoperative studies will be completed. Echocardiogram pending vein mapping pending Carotid Doppler pending Will obtain pulmonary function test due to patient's history of smoking Further recs to follow based on further clinical workup. 11/09/24 1. Coronary artery bypass graft surgery x5 (ASH to LAD, saphenous vein to diagonal, saphenous vein to first marginal, saphenous vein to second marginal, saphenous vein to PDA). 2. Amputation of left atrial appendage. 3. Endoscopic vein harvest bilateral greater saphenous vein. 4. Posterior pericardiotomy. 11/10/24 POD 1 AAOx3 Patient reports pain, Multimodal pain control Respiratory: 4 L nasal cannula Encourage IS, Deep Breathing, CXR reviewed chest tube drainage 25 and 25 so far this morning after walking. Chest tubes causing marked amount of pain. Will DC chest tubes Cardiac: Sinus rhythm, pacing wires on standby GI: Advance diet as tolerated, monitor glycemic control : Ramirez in place, monitor urine output UO: 765 overnight PT/OT, patient walked the unit Disposition: Patient has good family support DVT prophylaxis, SCDs in place Continue DAPT, metoprolol, Lipitor, amiodarone Labs reveiwed- replace electrolytes as needed Patient seen and examined by Dr. Ross. Plan of care discussed with patient and multidisciplinary team. The patient's questions were answered Consultants: cardiology, cardiovascular surgery at 1223 at 0833 RPT #:[id number] END OF REPORT [facility] 2024-11-10 10:11:00 [facility] ([facility] Cardiology Progress Note REPORT#:[id number] REPORT STATUS: Signed REPORT INITIALIZATION DATE:11/10/24 TIME: 1011 PATIENT: YUNIER PRATT UNIT #: [id number] ROOM/BED: [place] [address] : 72 AGE: 54 SEX: F ATTEND: Alejandro Bay MD ADM AUTHOR: Sharon Lindquist MD REPT SERVICE DT/TIME: 11/10/24 1011 * ALL edits or amendments must be made on the electronic/computer document * Subjective Free Text Subj Notes Free Text Subj Notes: Doing okay, s/p CABG, complain of pain around the sternotomy site Objective General VS/I O: 24 hour I O ending at 0700: 11/10 0700 11/09 1900 Intake Total 2014.00 Output Total 1130 250 Balance 884.00 -250 Intake, IV 1774.00 Intake, Oral 240 Output, Chest 475 140 Tube Drainage Output, Urine 655 110 Patient 72.8 kg Weight Weight Standing scale Measurement Method Vital Signs: Date Time Temp Pulse Resp B/P B/P Pulse O2 O2 Flow FiO2 Mean Ox Delivery Rate 11/10 0808 100 Nasal 4 cannula 11/10 0800 Nasal cannula 11/10 0700 98.6 80 2 107/58 76 100 11/10 0600 98.6 83 21 113/59 81 100 11/10 0500 82 19 117/31 66 99 11/10 0400 Nasal 4 cannula 11/10 0400 98.2 83 23 123/70 91 100 11/10 0338 100 Nasal 4 36 cannula 11/10 0300 98.2 81 7 127/71 93 100 11/10 0230 98.2 81 1 126/67 91 100 11/10 0200 98.2 80 11 127/69 92 100 11/10 0130 97.9 79 12 124/70 92 100 11/10 0100 98.1 80 12 127/71 94 100 11/10 0030 97.9 80 5 128/70 93 100 11/10 0000 6 11/10 0000 97.9 77 1 126/68 92 100 11/09 2317 100 High flow 8 52 nasal cannula 11/09 2300 98.1 78 8 129/71 94 100 11/09 2200 98.1 77 12 126/68 92 100 11/09 2157 98.1 77 10 132/74 98 100 11/09 2100 98.6 76 21 100/57 74 100 11/10 1999 98.1 11/10 1999 BiPAP 40 11/10 1999 98.4 75 14 101/57 74 100 11/09 1900 97.9 78 18 99/64 76 100 11/09 1859 71 100 40 11/09 1859 100 BiPAP 40 11/09 1844 79 100 40 11/09 1116 69 19 149/67 95 96 11/09 1100 70 19 135/72 98 97 11/09 1019 72 28 154/77 108 99 PATIENT WEIGHT: Weight (lb): 160 Weight (oz): 7.94 Weight (kg): 72.800 Medications: Active Meds + DC'd Last 24 Hrs Ipratropium Hazard (ATROVENT) 500 MCG RTQ2H PRN PRN INH Cyanocobalamin (Vitamin B-12 500 mcg tab) 500 MCG DAILY PO Ferrous Sulfate (FERROUS SULFATE) 325 MG DAILY PO Bisacodyl (DULCOLAX) 10 MG ONCE PRN RECTAL Magnesium Hydroxide (MILK OF MAGNESIA) 30 ML ONCE PRN PO Clopidogrel Bisulfate (Plavix) 75 MG DAILY PO Famotidine (PEPCID) 20 MG DAILY PO (DC) Gabapentin (NEURONTIN) 600 MG BID PO Methocarbamol (ROBAXIN) 500 MG TID PO Polyethylene Glycol (MIRALAX) 17 GM DAILY PO Fentanyl Citrate (SUBLIMAZE) 25 MCG ONCE ONE IV (DC) Pantoprazole (PROTONIX) 40 MG DAILY@0600 PO Hydromorphone HCl (DILAUDID) 0.5 MG ONCE ONE IV (DC) Oxycodone HCl (Oxycodone HCl) 10 MG Q6H PRN PRN PO Aspirin (ASPIRIN) 81 MG DAILY PO Methocarbamol (ROBAXIN) 1,000 MG ONCE ONE IV (DC) Albumin Human (ALBUMINAR 5% 12.5GM/250ML) 250 ML ONCE ONE IV (DC) Amiodarone HCl (CORDARONE) 200 MG TID PO Atorvastatin Calcium (LIPITOR) 40 MG 2100 PO Docusate Sodium (COLACE) 100 MG BID PO Gabapentin (NEURONTIN) 300 MG TID PO (DC) Metoprolol Tartrate (LOPRESSOR) 12.5 MG Q12HR PO Mupirocin (BACTROBAN 2% 22 GM OINTMENT) 1 APPLIC BID NASAL Quetiapine Fumarate (SeroqueL) 200 MG BEDTIME PO (DC) Sennosides (Senna Lax 8.6 MG TABLET) 17.2 MG BEDTIME PO Fentanyl Citrate (SUBLIMAZE) 25 MCG ONCE ONE IV (DC) Acetaminophen (OFIRMEV 10MG/ML) 100 ML Q6H IV (DC) Fentanyl Citrate (SUBLIMAZE) 0 .STK-MED ONE .ROUTE (DC) Ketorolac Tromethamine (TORADOL 30 MG) 0 .STK-MED ONE .ROUTE (DC) Hydromorphone HCl (DILAUDID) 0 .STK-MED ONE .ROUTE (DC) Propofol (DIPRIVAN 200MG/20ML INJECTION) 20 ML .STK-MED ONE IV (DC) Sodium Chloride (SODIUM CHLORIDE 0.9%) 50 ML .STK-MED ONE IV (DC) Sugammadex Sodium (BRIDION) 0 .STK-MED ONE IV (DC) Protamine Sulfate (PROTAMINE SULFATE) 0 .STK-MED ONE IV (DC) Calcium Chloride (CALCIUM CHLORIDE) 0 .STK-MED ONE IV (DC) Ipratropium Hazard (ATROVENT) 500 MCG RTQ4H INH Ephedrine Sulfate (ePHEDrine sulfate) 0 .STK-MED ONE .ROUTE (DC) Acetaminophen (TYLENOL) 650 MG Q4H PRN PRN PO Acetaminophen (TYLENOL) 650 MG Q4H PRN PRN RECTAL Albumin Human (ALBUMINAR 25%) 25 GM ASDIR PRN IV Calcium Chloride (CALCIUM CHLORIDE) 1 GM ASDIR PRN IV Cefazolin Sodium (KEFZOL OR ANCEF) 3 GM ONCE ONE IV Sodium Chloride (SODIUM CHLORIDE 0.9%) 250 ML Dextrose/Water (DEXTROSE 10% IN WATER) 125 ML ASDIR PRN IV (CKD) Dextrose/Water (DEXTROSE 10% IN WATER) 250 ML ASDIR PRN IV (CKD) Epinephrine (ADRENALIN CHLORIDE) 4 MG ASDIR IV Dextrose/Water (DEXTROSE 5% WATER) 246 ML Glucagon (GLUCAGON) 1 MG ASDIR PRN IM Insulin Human Regular (MYXREDLIN 100 UNITS/NS 100ML) 100 ML ASDIR IV ( CKD) Magnesium Sulfate (MAGNESIUM SULFATE 4GM/SWFI 100ML) 100 ML ASDIR PRN IV Magnesium Sulfate (MAGNESIUM SULFATE 2GM/SWFI 50ML) 50 ML ASDIR PRN IV Magnesium Sulfate/Dextrose (MAGNESIUM SULFATE 1GM/D5W 100ML) 100 ML ASDIR PRN IV Nicardipine HCl (niCARdipine HCl) 0 .STK-MED ONE IV (DC) Nitroglycerin/Dextrose (NITROGLYCERIN 50,000MCG/D5W 250ML) 250 ML ASDIR IV Norepinephrine/Dextrose (Norepinephrine 8 MG/D5W 250 mL) 250 ML TITRATE IV Ondansetron HCl (ZOFRAN) 4 MG Q6H PRN PRN IV Oxycodone HCl (ROXICODONE) 5 MG Q4H PRN PRN PO (DC) Oxycodone HCl (ROXICODONE) 10 MG Q4H PRN PRN PO (DC) Potassium Chloride (KCL 20MEQ/SWFI 100ML) 100 ML ASDIR PRN IV Sodium Bicarbonate (SODIUM BICARBONATE) 50 MEQ ASDIR PRN IV Sodium Chloride (SODIUM CHLORIDE 0.9%) 250 ML Q24H IV Rocuronium Hazard (ZEMURON) 0 .STK-MED ONE IV (DC) Cefazolin Sodium (KEFZOL OR ANCEF) 0 .STK-MED ONE .ROUTE (DC) Sodium Chloride (SODIUM CHLORIDE 0.9%) 250 ML .STK-MED ONE IV (DC) Vancomycin HCl (VANCOMYCIN HCL) 0 .STK-MED ONE .ROUTE (DC) Albumin Human (ALBUMINAR-25%) 100 ML .STK-MED ONE IV (DC) Heparin Sodium (HEPARIN SODIUM) 0 .STK-MED ONE .ROUTE (DC) Sodium Chloride (SODIUM CHLORIDE 0.9%) 100 ML .STK-MED ONE IV (DC) Lidocaine HCl (Lidocaine HCl 2% Luer-Jet) 0 .STK-MED ONE IV (DC) Magnesium Sulfate (MAGNESIUM SULFATE) 0 .STK-MED ONE IV (DC) Phenylephrine HCl (FARIBA-SYNEPHRINE 10MG/ML AMP) 0 .STK-MED ONE .ROUTE (DC ) Sodium Bicarbonate (SODIUM BICARBONATE) 0 .STK-MED ONE IV (DC) Papaverine HCl (PAPAVERINE HC) 0 .STK-MED ONE IV (DC) Papaverine HCl (PAPAVERINE HC) 0 .STK-MED ONE IV (DC) Heparin Sodium (HEPARIN SODIUM) 0 .STK-MED ONE .ROUTE (DC) Midazolam HCl (VERSED) 0 .STK-MED ONE .ROUTE (DC) Propofol (DIPRIVAN 200MG/20ML INJECTION) 20 ML .STK-MED ONE IV (DC) Aminocaproic Acid (AMICAR) 0 .STK-MED ONE .ROUTE (DC) Dexamethasone Sodium Phosphate (DECADRON) 0 .STK-MED ONE .ROUTE (DC) Fentanyl Citrate (SUBLIMAZE) 0 .STK-MED ONE IV (DC) Heparin Sodium (HEPARIN SODIUM) 0 .STK-MED ONE .ROUTE (DC) Lidocaine HCl (XYLOCAINE) 0 .STK-MED ONE .ROUTE (DC) Ondansetron HCl (ZOFRAN) 0 .STK-MED ONE .ROUTE (DC) Rocuronium Hazard (ZEMURON) 0 .STK-MED ONE IV (DC) Mupirocin (BACTROBAN 2% 22 GM OINTMENT) 1 APPLIC BID NASAL (DC) Fluticasone Propionate (Flonase Nasal Baxter) 2 SPRAY DAILY NASAL (CKD) Cefazolin Sodium (ceFAZolin 2 GM Inj) 2 GM PREOP ONCALL IV (DC) Sodium Chloride (SODIUM CHLORIDE) 20 ML Vancomycin HCl (VANCOMYCIN HCL) 1,000 MG PREOP ONCALL IV (DC) Sodium Chloride (SODIUM CHLORIDE 0.9%) 250 ML Verapamil HCl (ISOPTIN) 16.6 MG .Q24H ONE IV (DC) Heparin Sodium (Porcine) (HEPARIN SODIUM) 1,660 UNIT Sodium Bicarbonate (SODIUM BICARBONATE) 0.7 ML Nitroglycerin/Dextrose (NITROGLYCERIN 50MG/D5W 250ML) 8.3 MG Lactated Ringer's (LACTATED RINGERS) 949.5 ML Atorvastatin Calcium (LIPITOR) 40 MG 2100 PO (DC) Hydralazine HCl (APRESOLINE) 10 MG Q6H PRN PRN IV (DC) Gabapentin (NEURONTIN) 1,200 MG TID PO (DC) Acetaminophen (TYLENOL EXTRA STRENGTH) 1,000 MG PREOP ONCALL PO (DC) Gabapentin (NEURONTIN) 200 MG PREOP ONCALL PO (DC) Sodium Chloride (SODIUM CHLORIDE 0.9%) 100 ML ASDIR PRN IV (DC) Sodium Chloride (SODIUM CHLORIDE 0.9%) 100 ML ASDIR PRN IV (DC) Sodium Chloride (SODIUM CHLORIDE 0.9%) 100 ML ASDIR PRN IV (DC) Aspirin (ASPIRIN) 81 MG DAILY PO (DC) Duloxetine HCl (CYMBALTA) 20 MG DAILY PO (DC) Famotidine (PEPCID) 20 MG DAILY IV (DC) Furosemide (LASIX 40 mg/4 mL INJECTION) 40 MG BID IV (DC) Nicotine (NICODERM) 21 MG DAILY TRANSDERM (DC) Carvedilol (COREG) 6.25 MG C BK DIN PO (DC) Insulin Human Lispro (Admelog) 0 AC HS SUBQ (DC) Heparin Sodium (HEPARIN 5000 UNITS/ML) 5,000 UNIT ASDIR PRN PRN IV (DC) Heparin Sodium (HEPARIN 5000 UNITS/ML) 3,000 UNIT ASDIR PRN PRN IV (DC) Acetaminophen (TYLENOL) 650 MG Q4H PRN PRN PO (DC) Dextrose/Water (DEXTROSE 10% IN WATER) 125 ML ASDIR PRN IV (DC) Dextrose/Water (DEXTROSE 10% IN WATER) 250 ML ASDIR PRN IV (DC) Glucagon (GLUCAGON) 1 MG ASDIR PRN IM (DC) Heparin Sodium (Porcine) (HEPARIN 25,000 UNITS/ 1/2NS 500ML) 500 ML ASDIR IV (DC) Hydrocodone Bitart/Acetaminophen (NORCO 5/325) 1 TAB Q6H PRN PRN PO (DC) Morphine Sulfate (morphine SULFATE) 2 MG Q4H PRN PRN IV (DC) Ondansetron HCl (ZOFRAN) 4 MG Q4H PRN PRN IV (DC) Physical Exam General appearance: alert, awake, oriented Neck: non-tender, no JVD Cardiovascular: CV assessment: regular rate and rhythm Respiratory: decreased breath sounds, shortness of breath, no distress Abdomen: soft, non-tender, normal bowel sounds, no distention Genitourinary: no flank pain, no urinary catheter Lower extremity: LE assessment: no calf tenderness, no edema Musculoskeletal: normal inspection 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, oriented X 3, normal speech Skin: dry, intact, normal color Psychiatry: normal affect, normal judgment/insight, normal mood Results Findings/Data: Laboratory Tests 11/10 11/10 11/10 11/09 0514 0204 0013 1946 Blood Gas Puncture Site Art Line Art Line Art Line Art Line O2 Saturation (90 - 100 %) 96.4 99.4 99.7 98.4 ABG pH (7.35 - 7.45) 7.359 7.353 7.320 L 7.338 L ABG pCO2 (35.0 - 45 mmHg) 45.0 50.9 *H 50.6 *H 51.0 *H ABG pO2 (80 - 100.0 mmHg) 88.9 169.9 H 229.7 *H 120.6 H ABG HCO3 (22.0 - 26.0 MMOL/L) 25.4 28.3 *H 26.1 H 27.4 H ABG Total CO2 (22 - 29) 26.8 29.9 H 27.6 29.0 ABG Base Excess (0 - +/ MMOL/L) -0.1 L 2.8 0.0 1.6 ABG Hematocrit (33 - 45 %) 23 L 21 L 22 L 25 L ABG Hemoglobin (11.0 - 15.0 G/DL) 7.8 L 7.3 L 7.3 L 8.7 L Sodium (134 - 147 mmol/L) 143 144 143 145 Potassium (3.4 - 5.0 mmol/L) 4.3 4.4 4.3 4.2 Chloride (100 - 108 mmol/L) 107 106 108 110 H Ionized Calcium (1.12 - 1.32 MMOL/L) 1.35 H 1.41 H 1.38 H 1.38 H Temperature (F) 98.4 98.2 97.9 98.4 O2 Delivery Device Cannula Cannula Cannula Cannula 11/09 11/09 11/09 11/09 1836 1739 1719 1649 Blood Gas Puncture Site Art Line O2 Saturation (90 - 100 %) 97.9 98.1 100.0 100.0 ABG pH (7.35 - 7.45) 7.310 L 7.448 7.386 7.390 ABG pCO2 (35.0 - 45 mmHg) 60.3 *H 34.2 L 42.2 42.1 ABG pO2 (80 - 100.0 mmHg) 115.3 H 99.5 477.9 *H 407.2 *H ABG PO2/FiO2 Ratio (mm/Hg) 192.10 ABG HCO3 (22.0 - 26.0 MMOL/L) 30.4 *H 23.7 25.3 25.5 ABG Total CO2 (22 - 29) 32.2 H 24.7 26.6 26.8 ABG Base Excess (0 - +/ MMOL/L) 4.1 H -0.2 L 0.2 0.5 ABG Hematocrit (33 - 45 %) 24 L 22 L 23 L 20 L ABG Hemoglobin (11.0 - 15.0 G/DL) 8.3 L 7.4 L 7.9 L 6.9 L Tereso Test N/A Sodium (134 - 147 mmol/L) 146 146 143 141 Potassium (3.4 - 5.0 mmol/L) 4.4 3.7 4.7 4.1 Chloride (100 - 108 mmol/L) 110 H 112 H 105 104 Ionized Calcium (1.12 - 1.32 MMOL/L) 1.45 H 1.35 H 1.19 1.19 Lactic Acid (0.9 - 1.7 mmol/l) 1.6 1.9 H 1.5 1.5 Temperature (F) 98.4 O2 Delivery Device simple mask FiO2 (%) 60.0 11/09 11/09 11/09 1620 1551 1452 Blood Gas O2 Saturation (90 - 100 %) 100.0 99.8 100.0 ABG pH (7.35 - 7.45) 7.463 H 7.429 7.422 ABG pCO2 (35.0 - 45 mmHg) 40.0 39.3 38.5 ABG pO2 (80 - 100.0 mmHg) 449.1 *H 229.4 *H 545.9 *H ABG HCO3 (22.0 - 26.0 MMOL/L) 28.6 *H 26.1 H 25.1 ABG Total CO2 (22 - 29) 29.8 H 27.3 26.3 ABG Base Excess (0 - +/ MMOL/L) 4.4 H 1.6 0.7 ABG Hematocrit (33 - 45 %) 22 L 26 L 24 L ABG Hemoglobin (11.0 - 15.0 G/DL) 7.3 L 8.8 L 8.3 L Sodium (134 - 147 mmol/L) 144 142 145 Potassium (3.4 - 5.0 mmol/L) 3.7 4.2 3.8 Chloride (100 - 108 mmol/L) 104 106 108 Ionized Calcium (1.12 - 1.32 MMOL/L) 1.14 1.22 1.19 Lactic Acid (0.9 - 1.7 mmol/l) 0.9 0.7 L < 0.3 L Laboratory Tests 11/10 11/10 11/10 11/10 11/10 0721 0616 0514 0204 0124 Chemistry Sodium (134 - 147 mEq/L) 141 Potassium (3.4 - 5.0 mEq/L) 4.5 Chloride (100 - 108 mEq/L) 113 H Carbon Dioxide (21 - 33 mEq/l) 26 Anion Gap (0 - 20) 6 BUN (7 - 25 mg/dL) 14 Creatinine (0.6 - 1.3 mg/dL) 0.6 POC Creatinine (0.6 - 1.3 mg/dL) 0.6 0.5 L Glomerular Filtr Rate (90 - 95) 107.9 H Glucose (77 - 141 mg/dL) 117 POC Glucose (70 - 110 MG/DL) 153 H 187 H POC Glucose (mg/dL) (70 - 110 MG/DL) 175 H 120 H Calcium (8.0 - 10.5 mg/dL) 8.5 Magnesium (1.6 - 2.6 mg/dL) 2.14 Total Bilirubin (0.0 - 1.0 mg/dL) 0.50 Direct Bilirubin (0.1 - 0.3 MG/DL) 0.20 Indirect Bilirubin (MG/DL) 0.30 AST (8 - 34 IUnit/L) 39 H ALT (10 - 49 IUnit/L) 14 Total Alk Phosphatase (20 - 125 65 IUnit/L) Total Protein (5.7 - 8.2 g/dL) 5.7 Albumin (3.4 - 5.0 g/dL) 3.20 L 11/10 11/09 11/09 11/09 11/09 0013 2355 2207 1946 1836 Chemistry POC Creatinine (0.6 - 1.3 mg/dL) 0.5 L 0.6 0.6 POC Glucose (70 - 110 MG/DL) 127 H 143 H POC Glucose (mg/dL) (70 - 110 MG/DL) 141 H 152 H 151 H 11/09 11/09 11/09 11/09 11/09 1757 1739 1719 1649 1620 Chemistry Sodium (134 - 147 mEq/L) 142 Potassium (3.4 - 5.0 mEq/L) 4.4 Chloride (100 - 108 mEq/L) 113 H Carbon Dioxide (21 - 33 mEq/l) 25 Anion Gap (0 - 20) 8 BUN (7 - 25 mg/dL) 13 Creatinine (0.6 - 1.3 mg/dL) 0.6 POC Creatinine (0.6 - 1.3 mg/dL) 0.5 L 0.6 0.6 0.6 Glomerular Filtr Rate (90 - 95) 107.9 H Glucose (77 - 141 mg/dL) 136 POC Glucose (mg/dL) (70 - 110 MG/DL) 139 H 138 H 147 H 160 H Calcium (8.0 - 10.5 mg/dL) 8.4 Magnesium (1.6 - 2.6 mg/dL) 2.30 11/09 11/09 11/09 1551 1452 1301 Chemistry POC Creatinine (0.6 - 1.3 mg/dL) 0.4 L 0.5 L POC Glucose (mg/dL) (70 - 110 MG/DL) 195 H 195 H Serum , Qual (NEGATIVE) SERUM NEGATIVE Laboratory Tests 11/095 4 1757 1742 Coagulation INR (0.8 - 1.2) 1.3 H 1.4 H PTT (Ravalli) (25.0 - 39.5 Seconds) 26.6 25.1 PT Patient/Control Mix (9.3 - 12.9 SECONDS) 14.0 H 15.3 H TEG R Time Citrated (4.6 - 9.1 min) 5.9 TEG K Time Citrated (0.8 - 2.1 min) 1.2 TEG Alpha Angle Citr (63 - 78 degrees) 74.0 TEG Max Ampl Citrated (52 - 69 mm) 59.6 TEG Max Ampl Citr Rapid (52 - 70 mm) 61.4 TEG Clot Time Rpd w Hep (4.3 - 8.3 mins) 5.4 Activated Coag Time (74 - 137 SEC) 106 Func Fibrinogen MA (15 - 32 mm) 19.1 Func Fibrinogen Level (278 - 581 mg/dL) 348.5 11/09 11/09 11/09 11/09 11/09 1728 1656 1629 1559 1456 Coagulation Activated Coag Time (74 - 137 SEC) 579 H 458 H 619 H 498 H 135 Laboratory Tests 11/10 11/09 0124 1757 Hematology WBC (4.5 - 11.0 x10 3/uL) 11.3 H 18.3 H RBC (3.54 - 5.02 x10 6/uL) 2.84 L 3.23 L Hgb (11.0 - 15.0 g/dL) 6.9 L 8.0 L Hct (33.0 - 45.0 %) 23.0 L 26.2 L MCV (81.0 - 99.0 fL) 81.0 81.1 MCH (27.0 - 33.0 pg) 24.3 L 24.8 L MCHC (33.0 - 37.0 g/dL) 30.0 L 30.5 L RDW (11.5 - 14.5 %) 16.4 H 16.7 H Plt Count (150 - 400 x10 3/uL) 94 L 151 MPV (7.0 - 9.0 fL) 10.7 H 10.9 H Neut % (Auto) (56.0 - 77.0 %) 89.2 H 87.5 H Lymph % (Auto) (14.0 - 32.0 %) 4.9 L 6.1 L Brule % (Auto) (4.8 - 9.0 %) 5.4 4.6 L Eos % (Auto) (0.3 - 3.7 %) 0.0 L 0.8 Baso % (Auto) (0.0 - 2.0 %) 0.1 0.3 Neut # (Auto) (2.0 - 7.6 x10 3/uL) 10.11 H 15.97 H Lymph # (Auto) (1.0 - 3.8 x10 3/uL) 0.56 L 1.12 Brule # (Auto) (0.1 - 0.8 x10 3/uL) 0.61 0.84 H Eos # (Auto) (0.0 - 0.2 x10 3/uL) 0.00 0.15 Baso # (Auto) (0.0 - 0.2 x10 3/uL) 0.01 0.05 Abs Immat Gran (auto) (0.00 - 0.03 x10 3/uL) 0.05 H 0.13 H Immature Gran % (0.0 - 2.0 %) 0.4 0.7 Nucleated RBC % (0 - 0 %) 0.0 0.0 Nucleated RBCs # (Man) (0.0 - 0.1 x10 3/uL) 0.00 0.00 Platelet Estimate (150 - 400 x10 3/uL) 99 L Plt Morphology Comment NORMAL Laboratory Tests 11/10 11/09 0124 1757 Chemistry Magnesium (1.6 - 2.6 mg/dL) 2.14 2.30 Radiology data: Recent Impressions: RADIOLOGY - XR CHEST 1 V 11/09 1909 Report Impression - Status: SIGNED Entered: 11/09/20241922 IMPRESSION: Patient status post CABG. No pneumothorax. There is a right IJ line identified and probable mediastinal drain . Mild fluid overload appearing improved to the preoperative exam Impression By: Harinder - Terra Menchaca M.D. Diagnosis, Assessment Plan Free Text DxA P Notes Free Text DxA P Notes: 54 YO patient with MH of HTN, DM, neuropathy, tobacco abuse who presented at [facility] with shortness of breath and chest pain. She was ruled for NSTEMI, had LHC which revealed multivessed CAD. She is transferred to [facility] for CABG evaluation. 1. NSTEMI/Multivessel CAD * Echo LVEF 50-54%, G1DD, mild MR * Heparin gtt, ASA, BB, statin * S/p CABG (ASH-LAD, SVG-OM1, SVG-OM2, SVG-Diag, SVG-PDA) AND alaa 2. Hypertension * Resume meds as tolerated. 3. Diabetes mellitus * A1c 8 * manage per CTS 4. Acute Diastolic CHF, present to admission * LVEF 50-54% * CXR showed bilateral pleural effusion * on IV lasix 40 mg BID at 1014 RPT #:[id number] END OF REPORT [facility] 2024-11-10 07:03:00 [facility] Critical Care Progress Note REPORT#:[id number] REPORT STATUS: Signed REPORT INITIALIZATION DATE:11/10/24 TIME: 07 PATIENT: YUNIER PRATT UNIT #: [id number] ROOM/BED: [place] [address] : 72 AGE: 54 SEX: F ATTEND: Flynn Becerra MD ADM AUTHOR: Jean Claude Smith MD REPT SERVICE DT/TIME: 11/10/24 0703 * ALL edits or amendments must be made on the electronic/computer document * Subjective Chief complaint: CP, SOB HPI: 52-year-old female with significant history of hypertension diabetes diabetic neuropathy history of CAD tobacco use who presented to an outside facility [facility] complaining of shortness of breath or chest pain. Diagnosed with elevated troponins and NSTEMI. Cardiac cath showed multivessel disease. Patient was transferred to [facility] for surgical vascularization evaluation. Patient today underwent CABG x 5 ASH to LAD SVG to diagonal VG to OM1 SVG to OM 2 SVG to RPDA bilateral lower extremity endoscopic vein harvest the left atrial appendage amputation. Patient received 1.5 L of crystalloids EBL was 200 Cell Saver received was 430 urine output through the case was 500. Cross-clamp time was 72 minutes cardiopulmonary bypass time was 78 minutes. Patient coming off pump was in V-fib that required x 1 shock and temporary pacing. Patient was extubated ultimately room and brought to the CVICU on norepinephrine at 3 mics per kilo per minute and insulin 2 units/h. Patient pCO2 was elevated at the initial gas and required BiPAP immediately after arrival. 11/10 Seen evaluated this morning. Postop day 1. Overnight significant issues with pain requiring multiple doses of narcotic agents. We will increase her Neurontin dose to her home dose. Up in a chair doing okay oxygen requirements are improved. Hemoglobin is 6.9 started low continues to be on insulin drip glucose well-controlled Objective General VS/I O Last Documented: Result Date Time Pulse Ox 100 11/10 0700 B/P 107/58 11/10 0700 B/P Mean 76 11/10 0700 Temp 98.6 11/10 0700 Pulse 80 11/10 0700 Resp 2 11/10 0700 O2 Delivery Nasal cannula 11/10 0400 O2 Flow Rate 4 11/10 0400 FiO2 36 11/10 0338 24 hour I O ending at 0700: 11/10 0700 11/09 1900 Intake Total 2014.00 Output Total 1130 250 Balance 884.00 -250 Intake, IV 1774.00 Intake, Oral 240 Output, Chest 475 140 Tube Drainage Output, Urine 655 110 Patient 72.8 kg Weight Weight Standing scale Measurement Method PATIENT WEIGHT: Weight (lb): 160 Weight (oz): 7.94 Weight (kg): 72.800 Medications: Active Meds + DC'd Last 24 Hrs Ipratropium Hazard (ATROVENT) 500 MCG RTQ2H PRN PRN INH Cyanocobalamin (Vitamin B-12 500 mcg tab) 500 MCG DAILY PO Ferrous Sulfate (FERROUS SULFATE) 325 MG DAILY PO Bisacodyl (DULCOLAX) 10 MG ONCE PRN RECTAL Magnesium Hydroxide (MILK OF MAGNESIA) 30 ML ONCE PRN PO Clopidogrel Bisulfate (Plavix) 75 MG DAILY PO Famotidine (PEPCID) 20 MG DAILY PO (DC) Gabapentin (NEURONTIN) 600 MG BID PO Methocarbamol (ROBAXIN) 500 MG TID PO Polyethylene Glycol (MIRALAX) 17 GM DAILY PO Fentanyl Citrate (SUBLIMAZE) 25 MCG ONCE ONE IV (DC) Pantoprazole (PROTONIX) 40 MG DAILY@0600 PO Hydromorphone HCl (DILAUDID) 0.5 MG ONCE ONE IV (DC) Oxycodone HCl (Oxycodone HCl) 10 MG Q6H PRN PRN PO Aspirin (ASPIRIN) 81 MG DAILY PO Methocarbamol (ROBAXIN) 1,000 MG ONCE ONE IV (DC) Albumin Human (ALBUMINAR 5% 12.5GM/250ML) 250 ML ONCE ONE IV (DC) Amiodarone HCl (CORDARONE) 200 MG TID PO Atorvastatin Calcium (LIPITOR) 40 MG 2100 PO Docusate Sodium (COLACE) 100 MG BID PO Gabapentin (NEURONTIN) 300 MG TID PO (DC) Metoprolol Tartrate (LOPRESSOR) 12.5 MG Q12HR PO Mupirocin (BACTROBAN 2% 22 GM OINTMENT) 1 APPLIC BID NASAL Quetiapine Fumarate (SeroqueL) 200 MG BEDTIME PO (DC) Sennosides (Senna Lax 8.6 MG TABLET) 17.2 MG BEDTIME PO Fentanyl Citrate (SUBLIMAZE) 25 MCG ONCE ONE IV (DC) Acetaminophen (OFIRMEV 10MG/ML) 100 ML Q6H IV (DC) Fentanyl Citrate (SUBLIMAZE) 0 .STK-MED ONE .ROUTE (DC) Ketorolac Tromethamine (TORADOL 30 MG) 0 .STK-MED ONE .ROUTE (DC) Hydromorphone HCl (DILAUDID) 0 .STK-MED ONE .ROUTE (DC) Propofol (DIPRIVAN 200MG/20ML INJECTION) 20 ML .STK-MED ONE IV (DC) Sodium Chloride (SODIUM CHLORIDE 0.9%) 50 ML .STK-MED ONE IV (DC) Sugammadex Sodium (BRIDION) 0 .STK-MED ONE IV (DC) Protamine Sulfate (PROTAMINE SULFATE) 0 .STK-MED ONE IV (DC) Calcium Chloride (CALCIUM CHLORIDE) 0 .STK-MED ONE IV (DC) Ipratropium Hazard (ATROVENT) 500 MCG RTQ4H INH Ephedrine Sulfate (ePHEDrine sulfate) 0 .STK-MED ONE .ROUTE (DC) Acetaminophen (TYLENOL) 650 MG Q4H PRN PRN PO Acetaminophen (TYLENOL) 650 MG Q4H PRN PRN RECTAL Albumin Human (ALBUMINAR 25%) 25 GM ASDIR PRN IV Calcium Chloride (CALCIUM CHLORIDE) 1 GM ASDIR PRN IV Cefazolin Sodium (KEFZOL OR ANCEF) 3 GM ONCE ONE IV Sodium Chloride (SODIUM CHLORIDE 0.9%) 250 ML Dextrose/Water (DEXTROSE 10% IN WATER) 125 ML ASDIR PRN IV (CKD) Dextrose/Water (DEXTROSE 10% IN WATER) 250 ML ASDIR PRN IV (CKD) Epinephrine (ADRENALIN CHLORIDE) 4 MG ASDIR IV Dextrose/Water (DEXTROSE 5% WATER) 246 ML Glucagon (GLUCAGON) 1 MG ASDIR PRN IM Insulin Human Regular (MYXREDLIN 100 UNITS/NS 100ML) 100 ML ASDIR IV ( CKD) Magnesium Sulfate (MAGNESIUM SULFATE 4GM/SWFI 100ML) 100 ML ASDIR PRN IV Magnesium Sulfate (MAGNESIUM SULFATE 2GM/SWFI 50ML) 50 ML ASDIR PRN IV Magnesium Sulfate/Dextrose (MAGNESIUM SULFATE 1GM/D5W 100ML) 100 ML ASDIR PRN IV Nicardipine HCl (niCARdipine HCl) 0 .STK-MED ONE IV (DC) Nitroglycerin/Dextrose (NITROGLYCERIN 50,000MCG/D5W 250ML) 250 ML ASDIR IV Norepinephrine/Dextrose (Norepinephrine 8 MG/D5W 250 mL) 250 ML TITRATE IV Ondansetron HCl (ZOFRAN) 4 MG Q6H PRN PRN IV Oxycodone HCl (ROXICODONE) 5 MG Q4H PRN PRN PO (DC) Oxycodone HCl (ROXICODONE) 10 MG Q4H PRN PRN PO (DC) Potassium Chloride (KCL 20MEQ/SWFI 100ML) 100 ML ASDIR PRN IV Sodium Bicarbonate (SODIUM BICARBONATE) 50 MEQ ASDIR PRN IV Sodium Chloride (SODIUM CHLORIDE 0.9%) 250 ML Q24H IV Rocuronium Hazard (ZEMURON) 0 .STK-MED ONE IV (DC) Cefazolin Sodium (KEFZOL OR ANCEF) 0 .STK-MED ONE .ROUTE (DC) Sodium Chloride (SODIUM CHLORIDE 0.9%) 250 ML .STK-MED ONE IV (DC) Vancomycin HCl (VANCOMYCIN HCL) 0 .STK-MED ONE .ROUTE (DC) Albumin Human (ALBUMINAR-25%) 100 ML .STK-MED ONE IV (DC) Heparin Sodium (HEPARIN SODIUM) 0 .STK-MED ONE .ROUTE (DC) Sodium Chloride (SODIUM CHLORIDE 0.9%) 100 ML .STK-MED ONE IV (DC) Lidocaine HCl (Lidocaine HCl 2% Luer-Jet) 0 .STK-MED ONE IV (DC) Magnesium Sulfate (MAGNESIUM SULFATE) 0 .STK-MED ONE IV (DC) Phenylephrine HCl (FARIBA-SYNEPHRINE 10MG/ML AMP) 0 .STK-MED ONE .ROUTE (DC ) Sodium Bicarbonate (SODIUM BICARBONATE) 0 .STK-MED ONE IV (DC) Papaverine HCl (PAPAVERINE HC) 0 .STK-MED ONE IV (DC) Papaverine HCl (PAPAVERINE HC) 0 .STK-MED ONE IV (DC) Heparin Sodium (HEPARIN SODIUM) 0 .STK-MED ONE .ROUTE (DC) Midazolam HCl (VERSED) 0 .STK-MED ONE .ROUTE (DC) Propofol (DIPRIVAN 200MG/20ML INJECTION) 20 ML .STK-MED ONE IV (DC) Aminocaproic Acid (AMICAR) 0 .STK-MED ONE .ROUTE (DC) Dexamethasone Sodium Phosphate (DECADRON) 0 .STK-MED ONE .ROUTE (DC) Fentanyl Citrate (SUBLIMAZE) 0 .STK-MED ONE IV (DC) Heparin Sodium (HEPARIN SODIUM) 0 .STK-MED ONE .ROUTE (DC) Lidocaine HCl (XYLOCAINE) 0 .STK-MED ONE .ROUTE (DC) Ondansetron HCl (ZOFRAN) 0 .STK-MED ONE .ROUTE (DC) Rocuronium Hazard (ZEMURON) 0 .STK-MED ONE IV (DC) Mupirocin (BACTROBAN 2% 22 GM OINTMENT) 1 APPLIC BID NASAL (DC) Epinephrine HCl (EPINEPHrine 4 mg/D5W 250 mL) 250 ML .STK-MED ONE IV (DC ) Insulin Human Regular (MYXREDLIN 100 UNITS/NS 100ML) 100 ML .STK-MED ONE IV (DC) Norepinephrine/Dextrose (Norepinephrine 8 MG/D5W 250 mL) 250 ML .STK-MED ONE IV (DC) Protamine Sulfate (PROTAMINE SULFATE) 0 .STK-MED ONE IV (DC) Ropivacaine (NAROPIN 0.5% 150 MG/30mL) 0 .STK-MED ONE .ROUTE (DC) Fluticasone Propionate (Flonase Nasal Baxter) 2 SPRAY DAILY NASAL (CKD) Cefazolin Sodium (ceFAZolin 2 GM Inj) 2 GM PREOP ONCALL IV (DC) Sodium Chloride (SODIUM CHLORIDE) 20 ML Vancomycin HCl (VANCOMYCIN HCL) 1,000 MG PREOP ONCALL IV (DC) Sodium Chloride (SODIUM CHLORIDE 0.9%) 250 ML Verapamil HCl (ISOPTIN) 16.6 MG .Q24H ONE IV (DC) Heparin Sodium (Porcine) (HEPARIN SODIUM) 1,660 UNIT Sodium Bicarbonate (SODIUM BICARBONATE) 0.7 ML Nitroglycerin/Dextrose (NITROGLYCERIN 50MG/D5W 250ML) 8.3 MG Lactated Ringer's (LACTATED RINGERS) 949.5 ML Atorvastatin Calcium (LIPITOR) 40 MG 2100 PO (DC) Hydralazine HCl (APRESOLINE) 10 MG Q6H PRN PRN IV (DC) Gabapentin (NEURONTIN) 1,200 MG TID PO (DC) Acetaminophen (TYLENOL EXTRA STRENGTH) 1,000 MG PREOP ONCALL PO (DC) Gabapentin (NEURONTIN) 200 MG PREOP ONCALL PO (DC) Sodium Chloride (SODIUM CHLORIDE 0.9%) 100 ML ASDIR PRN IV (DC) Sodium Chloride (SODIUM CHLORIDE 0.9%) 100 ML ASDIR PRN IV (DC) Sodium Chloride (SODIUM CHLORIDE 0.9%) 100 ML ASDIR PRN IV (DC) Aspirin (ASPIRIN) 81 MG DAILY PO (DC) Duloxetine HCl (CYMBALTA) 20 MG DAILY PO (DC) Famotidine (PEPCID) 20 MG DAILY IV (DC) Furosemide (LASIX 40 mg/4 mL INJECTION) 40 MG BID IV (DC) Nicotine (NICODERM) 21 MG DAILY TRANSDERM (DC) Carvedilol (COREG) 6.25 MG C BK DIN PO (DC) Insulin Human Lispro (Admelog) 0 AC HS SUBQ (DC) Heparin Sodium (HEPARIN 5000 UNITS/ML) 5,000 UNIT ASDIR PRN PRN IV (DC) Heparin Sodium (HEPARIN 5000 UNITS/ML) 3,000 UNIT ASDIR PRN PRN IV (DC) Acetaminophen (TYLENOL) 650 MG Q4H PRN PRN PO (DC) Dextrose/Water (DEXTROSE 10% IN WATER) 125 ML ASDIR PRN IV (DC) Dextrose/Water (DEXTROSE 10% IN WATER) 250 ML ASDIR PRN IV (DC) Glucagon (GLUCAGON) 1 MG ASDIR PRN IM (DC) Heparin Sodium (Porcine) (HEPARIN 25,000 UNITS/ 1/2NS 500ML) 500 ML ASDIR IV (DC) Hydrocodone Bitart/Acetaminophen (NORCO 5/325) 1 TAB Q6H PRN PRN PO (DC) Morphine Sulfate (morphine SULFATE) 2 MG Q4H PRN PRN IV (DC) Ondansetron HCl (ZOFRAN) 4 MG Q4H PRN PRN IV (DC) Physical Exam Head/eyes: EOMI, PERRLA ENT: moist mucosal membranes Neck: non-tender, no JVD, R IJ CVC Cardiovascular: normal capillary refill, normal heart sounds Respiratory: decreased breath sounds, prolonged exp phase, symmetric expansion, no distress Abdomen: soft, non-tender, no guarding Extremities: moves all, normal capillary refill 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: CNII-XII intact, normal speech, reflexes equal bilat, no motor deficits, no sensory deficits, somnolent but follows commands Results Findings/data: Laboratory Tests 11/10 11/10 11/10 11/09 0514 0204 0013 1946 Blood Gas Puncture Site Art Line Art Line Art Line Art Line O2 Saturation (90 - 100 %) 96.4 99.4 99.7 98.4 ABG pH (7.35 - 7.45) 7.359 7.353 7.320 L 7.338 L ABG pCO2 (35.0 - 45 mmHg) 45.0 50.9 *H 50.6 *H 51.0 *H ABG pO2 (80 - 100.0 mmHg) 88.9 169.9 H 229.7 *H 120.6 H ABG HCO3 (22.0 - 26.0 MMOL/L) 25.4 28.3 *H 26.1 H 27.4 H ABG Total CO2 (22 - 29) 26.8 29.9 H 27.6 29.0 ABG Base Excess (0 - +/ MMOL/L) -0.1 L 2.8 0.0 1.6 ABG Hematocrit (33 - 45 %) 23 L 21 L 22 L 25 L ABG Hemoglobin (11.0 - 15.0 G/DL) 7.8 L 7.3 L 7.3 L 8.7 L Sodium (134 - 147 mmol/L) 143 144 143 145 Potassium (3.4 - 5.0 mmol/L) 4.3 4.4 4.3 4.2 Chloride (100 - 108 mmol/L) 107 106 108 110 H Ionized Calcium (1.12 - 1.32 MMOL/L) 1.35 H 1.41 H 1.38 H 1.38 H Temperature (F) 98.4 98.2 97.9 98.4 O2 Delivery Device Cannula Cannula Cannula Cannula 11/09 11/09 11/09 11/09 1836 1739 1719 1649 Blood Gas Puncture Site Art Line O2 Saturation (90 - 100 %) 97.9 98.1 100.0 100.0 ABG pH (7.35 - 7.45) 7.310 L 7.448 7.386 7.390 ABG pCO2 (35.0 - 45 mmHg) 60.3 *H 34.2 L 42.2 42.1 ABG pO2 (80 - 100.0 mmHg) 115.3 H 99.5 477.9 *H 407.2 *H ABG PO2/FiO2 Ratio (mm/Hg) 192.10 ABG HCO3 (22.0 - 26.0 MMOL/L) 30.4 *H 23.7 25.3 25.5 ABG Total CO2 (22 - 29) 32.2 H 24.7 26.6 26.8 ABG Base Excess (0 - +/ MMOL/L) 4.1 H -0.2 L 0.2 0.5 ABG Hematocrit (33 - 45 %) 24 L 22 L 23 L 20 L ABG Hemoglobin (11.0 - 15.0 G/DL) 8.3 L 7.4 L 7.9 L 6.9 L Tereso Test N/A Sodium (134 - 147 mmol/L) 146 146 143 141 Potassium (3.4 - 5.0 mmol/L) 4.4 3.7 4.7 4.1 Chloride (100 - 108 mmol/L) 110 H 112 H 105 104 Ionized Calcium (1.12 - 1.32 MMOL/L) 1.45 H 1.35 H 1.19 1.19 Lactic Acid (0.9 - 1.7 mmol/l) 1.6 1.9 H 1.5 1.5 Temperature (F) 98.4 O2 Delivery Device simple mask FiO2 (%) 60.0 11/09 11/09 11/09 1620 1551 1452 Blood Gas O2 Saturation (90 - 100 %) 100.0 99.8 100.0 ABG pH (7.35 - 7.45) 7.463 H 7.429 7.422 ABG pCO2 (35.0 - 45 mmHg) 40.0 39.3 38.5 ABG pO2 (80 - 100.0 mmHg) 449.1 *H 229.4 *H 545.9 *H ABG HCO3 (22.0 - 26.0 MMOL/L) 28.6 *H 26.1 H 25.1 ABG Total CO2 (22 - 29) 29.8 H 27.3 26.3 ABG Base Excess (0 - +/ MMOL/L) 4.4 H 1.6 0.7 ABG Hematocrit (33 - 45 %) 22 L 26 L 24 L ABG Hemoglobin (11.0 - 15.0 G/DL) 7.3 L 8.8 L 8.3 L Sodium (134 - 147 mmol/L) 144 142 145 Potassium (3.4 - 5.0 mmol/L) 3.7 4.2 3.8 Chloride (100 - 108 mmol/L) 104 106 108 Ionized Calcium (1.12 - 1.32 MMOL/L) 1.14 1.22 1.19 Lactic Acid (0.9 - 1.7 mmol/l) 0.9 0.7 L < 0.3 L Laboratory Tests 11/10 11/10 11/10 11/10 11/10 0721 0616 0514 0204 0124 Chemistry Sodium (134 - 147 mEq/L) 141 Potassium (3.4 - 5.0 mEq/L) 4.5 Chloride (100 - 108 mEq/L) 113 H Carbon Dioxide (21 - 33 mEq/l) 26 Anion Gap (0 - 20) 6 BUN (7 - 25 mg/dL) 14 Creatinine (0.6 - 1.3 mg/dL) 0.6 POC Creatinine (0.6 - 1.3 mg/dL) 0.6 0.5 L Glomerular Filtr Rate (90 - 95) 107.9 H Glucose (77 - 141 mg/dL) 117 POC Glucose (70 - 110 MG/DL) 153 H 187 H POC Glucose (mg/dL) (70 - 110 MG/DL) 175 H 120 H Calcium (8.0 - 10.5 mg/dL) 8.5 Magnesium (1.6 - 2.6 mg/dL) 2.14 Total Bilirubin (0.0 - 1.0 mg/dL) 0.50 Direct Bilirubin (0.1 - 0.3 MG/DL) 0.20 Indirect Bilirubin (MG/DL) 0.30 AST (8 - 34 IUnit/L) 39 H ALT (10 - 49 IUnit/L) 14 Total Alk Phosphatase (20 - 125 65 IUnit/L) Total Protein (5.7 - 8.2 g/dL) 5.7 Albumin (3.4 - 5.0 g/dL) 3.20 L 11/10 11/09 11/09 11/09 11/09 0013 2355 2207 1946 1836 Chemistry POC Creatinine (0.6 - 1.3 mg/dL) 0.5 L 0.6 0.6 POC Glucose (70 - 110 MG/DL) 127 H 143 H POC Glucose (mg/dL) (70 - 110 MG/DL) 141 H 152 H 151 H 11/09 11/09 11/09 11/09 11/09 1757 1739 1719 1649 1620 Chemistry Sodium (134 - 147 mEq/L) 142 Potassium (3.4 - 5.0 mEq/L) 4.4 Chloride (100 - 108 mEq/L) 113 H Carbon Dioxide (21 - 33 mEq/l) 25 Anion Gap (0 - 20) 8 BUN (7 - 25 mg/dL) 13 Creatinine (0.6 - 1.3 mg/dL) 0.6 POC Creatinine (0.6 - 1.3 mg/dL) 0.5 L 0.6 0.6 0.6 Glomerular Filtr Rate (90 - 95) 107.9 H Glucose (77 - 141 mg/dL) 136 POC Glucose (mg/dL) (70 - 110 MG/DL) 139 H 138 H 147 H 160 H Calcium (8.0 - 10.5 mg/dL) 8.4 Magnesium (1.6 - 2.6 mg/dL) 2.30 11/09 11/09 11/09 11/09 1551 1452 1301 0810 Chemistry POC Creatinine (0.6 - 1.3 mg/dL) 0.4 L 0.5 L POC Glucose (70 - 110 MG/DL) 265 H POC Glucose (mg/dL) (70 - 110 MG/DL) 195 H 195 H Serum , Qual (NEGATIVE) SERUM NEGATIVE Laboratory Tests 11/09 1757 1742 Coagulation INR (0.8 - 1.2) 1.3 H 1.4 H PTT (Dalton) (25.0 - 39.5 Seconds) 26.6 25.1 PT Patient/Control Mix (9.3 - 12.9 SECONDS) 14.0 H 15.3 H TEG R Time Citrated (4.6 - 9.1 min) 5.9 TEG K Time Citrated (0.8 - 2.1 min) 1.2 TEG Alpha Angle Citr (63 - 78 degrees) 74.0 TEG Max Ampl Citrated (52 - 69 mm) 59.6 TEG Max Ampl Citr Rapid (52 - 70 mm) 61.4 TEG Clot Time Rpd w Hep (4.3 - 8.3 mins) 5.4 Activated Coag Time (74 - 137 SEC) 106 Func Fibrinogen MA (15 - 32 mm) 19.1 Func Fibrinogen Level (278 - 581 mg/dL) 348.5 11/09 11/09 11/09 11/09 11/09 1728 1656 1629 1559 1456 Coagulation Activated Coag Time (74 - 137 SEC) 579 H 458 H 619 H 498 H 135 Laboratory Tests 11/10 11/09 0124 1757 Hematology WBC (4.5 - 11.0 x10 3/uL) 11.3 H 18.3 H RBC (3.54 - 5.02 x10 6/uL) 2.84 L 3.23 L Hgb (11.0 - 15.0 g/dL) 6.9 L 8.0 L Hct (33.0 - 45.0 %) 23.0 L 26.2 L MCV (81.0 - 99.0 fL) 81.0 81.1 MCH (27.0 - 33.0 pg) 24.3 L 24.8 L MCHC (33.0 - 37.0 g/dL) 30.0 L 30.5 L RDW (11.5 - 14.5 %) 16.4 H 16.7 H Plt Count (150 - 400 x10 3/uL) 94 L 151 MPV (7.0 - 9.0 fL) 10.7 H 10.9 H Neut % (Auto) (56.0 - 77.0 %) 89.2 H 87.5 H Lymph % (Auto) (14.0 - 32.0 %) 4.9 L 6.1 L Brule % (Auto) (4.8 - 9.0 %) 5.4 4.6 L Eos % (Auto) (0.3 - 3.7 %) 0.0 L 0.8 Baso % (Auto) (0.0 - 2.0 %) 0.1 0.3 Neut # (Auto) (2.0 - 7.6 x10 3/uL) 10.11 H 15.97 H Lymph # (Auto) (1.0 - 3.8 x10 3/uL) 0.56 L 1.12 Brule # (Auto) (0.1 - 0.8 x10 3/uL) 0.61 0.84 H Eos # (Auto) (0.0 - 0.2 x10 3/uL) 0.00 0.15 Baso # (Auto) (0.0 - 0.2 x10 3/uL) 0.01 0.05 Abs Immat Gran (auto) (0.00 - 0.03 x10 3/uL) 0.05 H 0.13 H Immature Gran % (0.0 - 2.0 %) 0.4 0.7 Nucleated RBC % (0 - 0 %) 0.0 0.0 Nucleated RBCs # (Man) (0.0 - 0.1 x10 3/uL) 0.00 0.00 Platelet Estimate (150 - 400 x10 3/uL) 99 L Plt Morphology Comment NORMAL Laboratory Tests 11/10/24 0124: [Embedded Image Not Available] 11/09/24 1757: [Embedded Image Not Available] Microbiology: 11/08 1555 NASAL: MSSA Surveillance Screen - ORD 11/08 1555 NASAL: MRSA DNA Surveillance Screen - ORD 11/08 948 NASAL: MSSA Surveillance Screen - COMP 11/08 948 NASAL: MRSA DNA Surveillance Screen - COMP 11/08 0252 NASAL: MRSA DNA Surveillance Screen - COMP Radiology data Recent Impressions: ULTRASOUND - DUP UE ART UNI/LTD 11/09 0907 Report Impression - Status: SIGNED Entered: 11/09/2024 0951 IMPRESSION: Positive sonographic Tereso test suggesting no collateral flow from the ulnar artery to the radial artery. Palmar arch supplied by the radial artery. Impression By: [email or web address] Pulido M.D. RADIOLOGY - XR CHEST 1 V 11/09 1909 Report Impression - Status: SIGNED Entered: 11/09/20241922 IMPRESSION: Patient status post CABG. No pneumothorax. There is a right IJ line identified and probable mediastinal drain . Mild fluid overload appearing improved to the preoperative exam Impression By: [email or web address] - Terra Menchaca M.D. Diagnosis, Assessment Plan Problem list/A P: 1. Tobacco use 2. S/P CABG x 5 3. CAD (coronary artery disease) 4. DM neuropathy, type II diabetes mellitus 5. DM (diabetes mellitus) 6. HTN (hypertension) Free text A P: 52-year-old female significant past med history of hypertension diabetes CAD diabetic neuropathy current tobacco use who was evaluated outside facility for an NSTEMI and then found to have multivessel disease transferred for surgical vascularization. Assessment History hypertension History of diabetes History of CAD History of recent NSTEMI History of diabetic neuropathy Current tobacco use Status post CABG x 5 11/10 Doing okay pain is not adequately controlled. Patient does have significant chronic pain. Will restart long-term Neurontin dose and see if that helps. Continue weaning of FiO2. Chest x-ray does show some incipient pulmonary infiltrates suggestive of volume overload. Consider some diuresis today. Plan Continue care in CVICU Continue close hemodynamic metabolic respiratory neurological monitoring. Continue telemetry Close monitor chest tube output for any signs of tamponade or bleeding Off inotropic support Advance diet as tolerated continue bowel regimen Wean off FiO2 as able. Patient does have a history of tobacco use. BiPAP as needed. Continue aggressive pulmonary toilet incentive spirometry and pulm clearance as needed. Monitor urinary output renal function and replete electrolytes as needed. Consider gentle diuresis today. Monitor H H transfuse for hemoglobin less than 7 or active bleeding Mechanical DVT prophylaxis for now Multimodal pain management PT/OT ambulation as able Restart home medications as able Tight glucose control use insulin as needed glucose less than 180 Perioperative antibiotics per primary service Consultants: cardiology, cardiovascular surgery Critical care time: Minutes: 35 at 0800 RPT #:[id number] END OF REPORT [facility] 2024-11-10 04:38:00 [id number] [address] PATIENT NAME: YUNIER PRATT ADMIT DATE: 11/08/24 ACCOUNT NO: [id number] ROOM NO: [facility] AGE: 54 REPORT TYPE: eELECTROCARDIOGRAM REPORT SEX: F ADMITTING PHYSICIAN:Angela Aceves DO ATTENDING PHYSICIAN:Flynn Becerra MD Order: [id number] Test Reason : Cardiac Surgery Post Op Test Date/Time Stamp: TueNov 10 2024 04:38:42 Blood Pressure : / mmHG Vent. Rate : 083 BPM Atrial Rate : 083 BPM P-R Int : 176 ms QRS Dur : 098 ms QT Int : 380 ms P-R-T Axes : 072 030 -35 degrees QTc Int : 446 ms Normal sinus rhythm T wave abnormality, consider inferior ischemia Abnormal ECG When compared with ECG of 09-NOV-2024 18:41, Significant changes have occurred Confirmed by NITO JACQUES ([id number]) on 11/15/2024 1:20:05 PM Referred By: Self Referred Confirmed by:NITO JACQUES at 1320 PATIENT NAME: YUNIER PRATT [facility] 2024-11-09 23:41:00 [facility] Cardiology Progress Note REPORT#:[id number] REPORT STATUS: Signed REPORT INITIALIZATION DATE:11/09/24 TIME: 2340 PATIENT: YUNIER PRATT UNIT #: [id number] ROOM/BED: 2204 : 72 AGE: 54 SEX: F ATTEND: Flynn Becerra MD ADM AUTHOR: Sharon Lindquist MD REPT SERVICE DT/TIME: 03/21/25 2341 * ALL edits or amendments must be made on the electronic/computer document * Subjective Free Text Subj Notes Free Text Subj Notes: Seen preop, was resting comfortable, family at the bedside Objective General VS/I O: 24 hour I O ending at 0700: 11/09 0700 11/08 1900 Intake Total 240 Output Total Balance 240 Intake, Oral 240 Number 0 Bowel Movements Number Voids 1 Patient 69.7 kg Weight Weight Standing scale Measurement Method Vital Signs: Date Time Temp Pulse Resp B/P B/P Pulse O2 O2 Flow FiO2 Mean Ox Delivery Rate 11/09 2317 100 High flow 8 52 nasal cannula 11/09 2299 98.1 78 8 129/71 94 100 11/09 2200 98.1 77 12 126/68 92 100 11/097 98.1 77 10 132/74 98 100 11/09 2100 98.6 76 21 100/57 74 100 11/10 1999 98.1 11/10 1999 BiPAP 40 11/10 1999 98.4 75 14 101/57 74 100 11/09 1900 97.9 78 18 99/64 76 100 11/09 1859 71 100 40 11/09 1859 100 BiPAP 40 11/09 1844 79 100 40 11/09 1116 69 19 149/67 95 96 11/09 1100 70 19 135/72 98 97 11/09 1019 72 28 154/77 108 99 11/09 0810 98.1 88 20 161/83 108.6 98 11/09 0600 74 17 97 11/09 0423 98.6 79 20 133/70 91.0 97 Room air 11/09 0400 74 18 97 11/09 0200 82 98 11/09 0005 98.4 88 22 131/74 92.8 99 Room air PATIENT WEIGHT: Weight (lb): 153 Weight (oz): 10.6 Weight (kg): 69.700 Medications: Active Meds + DC'd Last 24 Hrs Ipratropium Hazard (ATROVENT) 500 MCG RTQ2H PRN PRN INH Cyanocobalamin (Vitamin B-12 500 mcg tab) 500 MCG DAILY PO Ferrous Sulfate (FERROUS SULFATE) 325 MG DAILY PO Bisacodyl (DULCOLAX) 10 MG ONCE PRN RECTAL Magnesium Hydroxide (MILK OF MAGNESIA) 30 ML ONCE PRN PO Clopidogrel Bisulfate (Plavix) 75 MG DAILY PO Famotidine (PEPCID) 20 MG DAILY PO (DC) Polyethylene Glycol (MIRALAX) 17 GM DAILY PO Pantoprazole (PROTONIX) 40 MG DAILY@0600 PO Oxycodone HCl (Oxycodone HCl) 10 MG Q6H PRN PRN PO Aspirin (ASPIRIN) 81 MG DAILY PO Methocarbamol (ROBAXIN) 1,000 MG ONCE ONE IV (DC) Albumin Human (ALBUMINAR 5% 12.5GM/250ML) 250 ML ONCE ONE IV (DC) Amiodarone HCl (CORDARONE) 200 MG TID PO Atorvastatin Calcium (LIPITOR) 40 MG 2100 PO Docusate Sodium (COLACE) 100 MG BID PO Gabapentin (NEURONTIN) 300 MG TID PO Metoprolol Tartrate (LOPRESSOR) 12.5 MG Q12HR PO Mupirocin (BACTROBAN 2% 22 GM OINTMENT) 1 APPLIC BID NASAL Quetiapine Fumarate (SeroqueL) 200 MG BEDTIME PO (DC) Sennosides (Senna Lax 8.6 MG TABLET) 17.2 MG BEDTIME PO Fentanyl Citrate (SUBLIMAZE) 25 MCG ONCE ONE IV (DC) Acetaminophen (OFIRMEV 10MG/ML) 100 ML Q6H IV Fentanyl Citrate (SUBLIMAZE) 0 .STK-MED ONE .ROUTE (DC) Ketorolac Tromethamine (TORADOL 30 MG) 0 .STK-MED ONE .ROUTE (DC) Hydromorphone HCl (DILAUDID) 0 .STK-MED ONE .ROUTE (DC) Propofol (DIPRIVAN 200MG/20ML INJECTION) 20 ML .STK-MED ONE IV (DC) Sodium Chloride (SODIUM CHLORIDE 0.9%) 50 ML .STK-MED ONE IV (DC) Sugammadex Sodium (BRIDION) 0 .STK-MED ONE IV (DC) Protamine Sulfate (PROTAMINE SULFATE) 0 .STK-MED ONE IV (DC) Calcium Chloride (CALCIUM CHLORIDE) 0 .STK-MED ONE IV (DC) Ipratropium Hazard (ATROVENT) 500 MCG RTQ4H INH Ephedrine Sulfate (ePHEDrine sulfate) 0 .STK-MED ONE .ROUTE (DC) Acetaminophen (TYLENOL) 650 MG Q4H PRN PRN PO Acetaminophen (TYLENOL) 650 MG Q4H PRN PRN RECTAL Albumin Human (ALBUMINAR 25%) 25 GM ASDIR PRN IV Calcium Chloride (CALCIUM CHLORIDE) 1 GM ASDIR PRN IV Cefazolin Sodium (KEFZOL OR ANCEF) 3 GM ONCE ONE IV Sodium Chloride (SODIUM CHLORIDE 0.9%) 250 ML Dextrose/Water (DEXTROSE 10% IN WATER) 125 ML ASDIR PRN IV (CKD) Dextrose/Water (DEXTROSE 10% IN WATER) 250 ML ASDIR PRN IV (CKD) Epinephrine (ADRENALIN CHLORIDE) 4 MG ASDIR IV Dextrose/Water (DEXTROSE 5% WATER) 246 ML Glucagon (GLUCAGON) 1 MG ASDIR PRN IM Insulin Human Regular (MYXREDLIN 100 UNITS/NS 100ML) 100 ML ASDIR IV ( CKD) Magnesium Sulfate (MAGNESIUM SULFATE 4GM/SWFI 100ML) 100 ML ASDIR PRN IV Magnesium Sulfate (MAGNESIUM SULFATE 2GM/SWFI 50ML) 50 ML ASDIR PRN IV Magnesium Sulfate/Dextrose (MAGNESIUM SULFATE 1GM/D5W 100ML) 100 ML ASDIR PRN IV Nicardipine HCl (niCARdipine HCl) 0 .STK-MED ONE IV (DC) Nitroglycerin/Dextrose (NITROGLYCERIN 50,000MCG/D5W 250ML) 250 ML ASDIR IV Norepinephrine/Dextrose (Norepinephrine 8 MG/D5W 250 mL) 250 ML TITRATE IV Ondansetron HCl (ZOFRAN) 4 MG Q6H PRN PRN IV Oxycodone HCl (ROXICODONE) 5 MG Q4H PRN PRN PO (DC) Oxycodone HCl (ROXICODONE) 10 MG Q4H PRN PRN PO (DC) Potassium Chloride (KCL 20MEQ/SWFI 100ML) 100 ML ASDIR PRN IV Sodium Bicarbonate (SODIUM BICARBONATE) 50 MEQ ASDIR PRN IV Sodium Chloride (SODIUM CHLORIDE 0.9%) 250 ML Q24H IV Rocuronium Hazard (ZEMURON) 0 .STK-MED ONE IV (DC) Cefazolin Sodium (KEFZOL OR ANCEF) 0 .STK-MED ONE .ROUTE (DC) Sodium Chloride (SODIUM CHLORIDE 0.9%) 250 ML .STK-MED ONE IV (DC) Vancomycin HCl (VANCOMYCIN HCL) 0 .STK-MED ONE .ROUTE (DC) Albumin Human (ALBUMINAR-25%) 100 ML .STK-MED ONE IV (DC) Heparin Sodium (HEPARIN SODIUM) 0 .STK-MED ONE .ROUTE (DC) Sodium Chloride (SODIUM CHLORIDE 0.9%) 100 ML .STK-MED ONE IV (DC) Lidocaine HCl (Lidocaine HCl 2% Luer-Jet) 0 .STK-MED ONE IV (DC) Magnesium Sulfate (MAGNESIUM SULFATE) 0 .STK-MED ONE IV (DC) Phenylephrine HCl (FARIBA-SYNEPHRINE 10MG/ML AMP) 0 .STK-MED ONE .ROUTE (DC ) Sodium Bicarbonate (SODIUM BICARBONATE) 0 .STK-MED ONE IV (DC) Papaverine HCl (PAPAVERINE HC) 0 .STK-MED ONE IV (DC) Papaverine HCl (PAPAVERINE HC) 0 .STK-MED ONE IV (DC) Heparin Sodium (HEPARIN SODIUM) 0 .STK-MED ONE .ROUTE (DC) Midazolam HCl (VERSED) 0 .STK-MED ONE .ROUTE (DC) Propofol (DIPRIVAN 200MG/20ML INJECTION) 20 ML .STK-MED ONE IV (DC) Aminocaproic Acid (AMICAR) 0 .STK-MED ONE .ROUTE (DC) Dexamethasone Sodium Phosphate (DECADRON) 0 .STK-MED ONE .ROUTE (DC) Fentanyl Citrate (SUBLIMAZE) 0 .STK-MED ONE IV (DC) Heparin Sodium (HEPARIN SODIUM) 0 .STK-MED ONE .ROUTE (DC) Lidocaine HCl (XYLOCAINE) 0 .STK-MED ONE .ROUTE (DC) Ondansetron HCl (ZOFRAN) 0 .STK-MED ONE .ROUTE (DC) Rocuronium Hazard (ZEMURON) 0 .STK-MED ONE IV (DC) Mupirocin (BACTROBAN 2% 22 GM OINTMENT) 1 APPLIC BID NASAL (DC) Epinephrine HCl (EPINEPHrine 4 mg/D5W 250 mL) 250 ML .STK-MED ONE IV (DC ) Insulin Human Regular (MYXREDLIN 100 UNITS/NS 100ML) 100 ML .STK-MED ONE IV (DC) Norepinephrine/Dextrose (Norepinephrine 8 MG/D5W 250 mL) 250 ML .STK-MED ONE IV (DC) Protamine Sulfate (PROTAMINE SULFATE) 0 .STK-MED ONE IV (DC) Ropivacaine (NAROPIN 0.5% 150 MG/30mL) [facility] ([facility] Fluticasone Propionate (Flonase Nasal Baxter) 2 SPRAY DAILY NASAL (CKD) Cefazolin Sodium (ceFAZolin 2 GM Inj) 2 GM PREOP ONCALL IV (DC) Sodium Chloride (SODIUM CHLORIDE) 20 ML Metoprolol Tartrate (LOPRESSOR) 6.25 MG ONCE ONE PO (DC) Vancomycin HCl (VANCOMYCIN HCL) 1,000 MG PREOP ONCALL IV (DC) Sodium Chloride (SODIUM CHLORIDE 0.9%) 250 ML Verapamil HCl (ISOPTIN) 16.6 MG .Q24H ONE IV (DC) Heparin Sodium (Porcine) (HEPARIN SODIUM) 1,660 UNIT Sodium Bicarbonate (SODIUM BICARBONATE) 0.7 ML Nitroglycerin/Dextrose (NITROGLYCERIN 50MG/D5W 250ML) 8.3 MG Lactated Ringer's (LACTATED RINGERS) 949.5 ML Atorvastatin Calcium (LIPITOR) 40 MG 2100 PO (DC) Hydralazine HCl (APRESOLINE) 10 MG Q6H PRN PRN IV (DC) Gabapentin (NEURONTIN) 1,200 MG TID PO (DC) Acetaminophen (TYLENOL EXTRA STRENGTH) 1,000 MG PREOP ONCALL PO (DC) Gabapentin (NEURONTIN) 200 MG PREOP ONCALL PO (DC) Sodium Chloride (SODIUM CHLORIDE 0.9%) 100 ML ASDIR PRN IV (DC) Sodium Chloride (SODIUM CHLORIDE 0.9%) 100 ML ASDIR PRN IV (DC) Sodium Chloride (SODIUM CHLORIDE 0.9%) 100 ML ASDIR PRN IV (DC) Aspirin (ASPIRIN) 81 MG DAILY PO (DC) Duloxetine HCl (CYMBALTA) 20 MG DAILY PO (DC) Famotidine (PEPCID) 20 MG DAILY IV (DC) Furosemide (LASIX 40 mg/4 mL INJECTION) 40 MG BID IV (DC) Nicotine (NICODERM) 21 MG DAILY TRANSDERM (DC) Carvedilol (COREG) 6.25 MG C BK DIN PO (DC) Insulin Human Lispro (Admelog) 0 AC HS SUBQ (DC) Heparin Sodium (HEPARIN 5000 UNITS/ML) 5,000 UNIT ASDIR PRN PRN IV (DC) Heparin Sodium (HEPARIN 5000 UNITS/ML) 3,000 UNIT ASDIR PRN PRN IV (DC) Acetaminophen (TYLENOL) 650 MG Q4H PRN PRN PO (DC) Dextrose/Water (DEXTROSE 10% IN WATER) 125 ML ASDIR PRN IV (DC) Dextrose/Water (DEXTROSE 10% IN WATER) 250 ML ASDIR PRN IV (DC) Glucagon (GLUCAGON) 1 MG ASDIR PRN IM (DC) Heparin Sodium (Porcine) (HEPARIN 25,000 UNITS/ 1/2NS 500ML) 500 ML ASDIR IV (DC) Hydrocodone Bitart/Acetaminophen (NORCO 5/325) 1 TAB Q6H PRN PRN PO (DC) Morphine Sulfate (morphine SULFATE) 2 MG Q4H PRN PRN IV (DC) Ondansetron HCl (ZOFRAN) 4 MG Q4H PRN PRN IV (DC) Physical Exam General appearance: pleasant, NAD Neck: non-tender, no JVD Cardiovascular: CV assessment: regular rate and rhythm Respiratory: decreased breath sounds, shortness of breath, no distress Abdomen: soft, non-tender, normal bowel sounds, no distention Genitourinary: no flank pain, no urinary catheter Lower extremity: LE assessment: no calf tenderness, no edema Musculoskeletal: normal inspection 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, oriented X 3, normal speech Skin: dry, intact, normal color Psychiatry: normal affect, normal judgment/insight, normal mood Results Findings/Data: Laboratory Tests 11/09 11/09 11/09 11/09 1946 [id number] Blood Gas Puncture Site Art Line Art Line O2 Saturation (90 - 100 %) 98.4 97.9 98.1 100.0 ABG pH (7.35 - 7.45) 7.338 L 7.310 L 7.448 7.386 ABG pCO2 (35.0 - 45 mmHg) 51.0 *H 60.3 *H 34.2 L 42.2 ABG pO2 (80 - 100.0 mmHg) 120.6 H 115.3 H 99.5 477.9 *H ABG PO2/FiO2 Ratio (mm/Hg) 192.10 ABG HCO3 (22.0 - 26.0 MMOL/L) 27.4 H 30.4 *H 23.7 25.3 ABG Total CO2 (22 - 29) 29.0 32.2 H 24.7 26.6 ABG Base Excess (0 - +/ MMOL/L) 1.6 4.1 H -0.2 L 0.2 ABG Hematocrit (33 - 45 %) 25 L 24 L 22 L 23 L ABG Hemoglobin (11.0 - 15.0 G/DL) 8.7 L 8.3 L 7.4 L 7.9 L Tereso Test N/A Sodium (134 - 147 mmol/L) 145 146 146 143 Potassium (3.4 - 5.0 mmol/L) 4.2 4.4 3.7 4.7 Chloride (100 - 108 mmol/L) 110 H 110 H 112 H 105 Ionized Calcium (1.12 - 1.32 MMOL/L) 1.38 H 1.45 H 1.35 H 1.19 Lactic Acid (0.9 - 1.7 mmol/l) 1.6 1.9 H 1.5 Temperature (F) 98.4 98.4 O2 Delivery Device Cannula simple mask FiO2 (%) 60.0 11/09 11/09 11/09 11/09 1649 1620 1551 1452 Blood Gas O2 Saturation (90 - 100 %) 100.0 100.0 99.8 100.0 ABG pH (7.35 - 7.45) 7.390 7.463 H 7.429 7.422 ABG pCO2 (35.0 - 45 mmHg) 42.1 40.0 39.3 38.5 ABG pO2 (80 - 100.0 mmHg) 407.2 *H 449.1 *H 229.4 *H 545.9 *H ABG HCO3 (22.0 - 26.0 MMOL/L) 25.5 28.6 *H 26.1 H 25.1 ABG Total CO2 (22 - 29) 26.8 29.8 H 27.3 26.3 ABG Base Excess (0 - +/ MMOL/L) 0.5 4.4 H 1.6 0.7 ABG Hematocrit (33 - 45 %) 20 L 22 L 26 L 24 L ABG Hemoglobin (11.0 - 15.0 G/DL) 6.9 L 7.3 L 8.8 L 8.3 L Sodium (134 - 147 mmol/L) 141 144 142 145 Potassium (3.4 - 5.0 mmol/L) 4.1 3.7 4.2 3.8 Chloride (100 - 108 mmol/L) 104 104 106 108 Ionized Calcium (1.12 - 1.32 MMOL/L) 1.19 1.14 1.22 1.19 Lactic Acid (0.9 - 1.7 mmol/l) 1.5 0.9 0.7 L < 0.3 L Laboratory Tests 11/09 11/09 11/09 11/09 11/09 2207 1946 1836 1757 1739 Chemistry Sodium (134 - 147 mEq/L) 142 Potassium (3.4 - 5.0 mEq/L) 4.4 Chloride (100 - 108 mEq/L) 113 H Carbon Dioxide (21 - 33 mEq/l) 25 Anion Gap (0 - 20) 8 BUN (7 - 25 mg/dL) 13 Creatinine (0.6 - 1.3 mg/dL) 0.6 POC Creatinine (0.6 - 1.3 mg/dL) 0.6 0.6 0.5 L Glomerular Filtr Rate (90 - 95) 107.9 H Glucose (77 - 141 mg/dL) 136 POC Glucose (70 - 110 MG/DL) 143 H POC Glucose (mg/dL) (70 - 110 MG/DL) 152 H 151 H 139 H Calcium (8.0 - 10.5 mg/dL) 8.4 Magnesium (1.6 - 2.6 mg/dL) 2.30 11/09 11/09 11/09 11/09 11/09 1719 1649 1620 1551 1452 Chemistry POC Creatinine (0.6 - 1.3 mg/dL) 0.6 0.6 0.6 0.4 L 0.5 L POC Glucose (mg/dL) (70 - 110 MG/DL) 138 H 147 H 160 H 195 H 195 H 11/09 11/09 11/09 1301 0810 0137 Chemistry Sodium (134 - 147 mEq/L) 141 Potassium (3.4 - 5.0 mEq/L) 3.8 Chloride (100 - 108 mEq/L) 108 Carbon Dioxide (21 - 33 mEq/l) 31 Anion Gap (0 - 20) 6 BUN (7 - 25 mg/dL) 12 Creatinine (0.6 - 1.3 mg/dL) 0.9 Glomerular Filtr Rate (90 - 95) 76.9 L Glucose (77 - 141 mg/dL) 233 H POC Glucose (70 - 110 MG/DL) 265 H Calcium (8.0 - 10.5 mg/dL) 8.6 Magnesium (1.6 - 2.6 mg/dL) 1.83 Serum , Qual (NEGATIVE) SERUM NEGATIVE Laboratory Tests 11/095 4 1757 1742 1728 Coagulation INR (0.8 - 1.2) 1.3 H 1.4 H PTT (Ravalli) (25.0 - 39.5 Seconds) 26.6 25.1 PT Patient/Control Mix (9.3 - 12.9 14.0 H 15.3 H SECONDS) TEG R Time Citrated (4.6 - 9.1 min) 5.9 TEG K Time Citrated (0.8 - 2.1 min) 1.2 TEG Alpha Angle Citr (63 - 78 degrees) 74.0 TEG Max Ampl Citrated (52 - 69 mm) 59.6 TEG Max Ampl Citr Rapid (52 - 70 mm) 61.4 TEG Clot Time Rpd w Hep (4.3 - 8.3 mins) 5.4 Activated Coag Time (74 - 137 SEC) 106 579 H Func Fibrinogen MA (15 - 32 mm) 19.1 Func Fibrinogen Level (278 - 581 mg/dL) 348.5 11/09 11/09 11/09 11/09 11/09 1656 1629 1559 1456 0137 Coagulation INR (0.8 - 1.2) 1.2 PTT (Dalton) (25.0 - 39.5 Seconds) 52.0 H PT Patient/Control Mix (9.3 - 12.9 13.5 H SECONDS) Activated Coag Time (74 - 137 SEC) 458 H 619 H 498 H 135 Laboratory Tests 11/09 11/09 1757 0137 Hematology WBC (4.5 - 11.0 x10 3/uL) 18.3 H 6.2 RBC (3.54 - 5.02 x10 6/uL) 3.23 L 3.63 Hgb (11.0 - 15.0 g/dL) 8.0 L 8.6 L Hct (33.0 - 45.0 %) 26.2 L 28.7 L MCV (81.0 - 99.0 fL) 81.1 79.1 L MCH (27.0 - 33.0 pg) 24.8 L 23.7 L MCHC (33.0 - 37.0 g/dL) 30.5 L 30.0 L RDW (11.5 - 14.5 %) 16.7 H 16.5 H Plt Count (150 - 400 x10 3/uL) 151 146 L MPV (7.0 - 9.0 fL) 10.9 H 11.0 H Neut % (Auto) (56.0 - 77.0 %) 87.5 H 58.1 Lymph % (Auto) (14.0 - 32.0 %) 6.1 L 29.6 Brule % (Auto) (4.8 - 9.0 %) 4.6 L 9.2 H Eos % (Auto) (0.3 - 3.7 %) 0.8 2.3 Baso % (Auto) (0.0 - 2.0 %) 0.3 0.5 Neut # (Auto) (2.0 - 7.6 x10 3/uL) 15.97 H 3.59 Lymph # (Auto) (1.0 - 3.8 x10 3/uL) 1.12 1.83 Brule # (Auto) (0.1 - 0.8 x10 3/uL) 0.84 H 0.57 Eos # (Auto) (0.0 - 0.2 x10 3/uL) 0.15 0.14 Baso # (Auto) (0.0 - 0.2 x10 3/uL) 0.05 0.03 Abs Immat Gran (auto) (0.00 - 0.03 x10 3/uL) 0.13 H 0.02 Immature Gran % (0.0 - 2.0 %) 0.7 0.3 Nucleated RBC % (0 - 0 %) 0.0 0.0 Nucleated RBCs # (Man) (0.0 - 0.1 x10 3/uL) 0.00 0.00 Laboratory Tests 11/09 11/09 1757 0137 Chemistry Magnesium (1.6 - 2.6 mg/dL) 2.30 1.83 Diagnosis, Assessment Plan Free Text DxA P Notes Free Text DxA P Notes: 54 YO patient with MH of HTN, DM, neuropathy, tobacco abuse who presented at [facility] with shortness of breath and chest pain. She was ruled for NSTEMI, had LHC which revealed multivessed CAD. She is transferred to [facility] for CABG evaluation. 1. NSTEMI/Multivessel CAD * Echo LVEF 50-54%, G1DD, mild MR * Heparin gtt, ASA, BB, statin * CABG scheduled for this afternoon 2. Hypertension * BP elevated * on carvedilol 6.25 mg BID * IV hydralazine as needed 3. Diabetes mellitus * A1c 8 * manage per CTS 4. Acute Diastolic CHF, present to admission * LVEF 50-54% * CXR showed bilateral pleural effusion * on IV lasix 40 mg BID at 7733 RPT #:[id number] END OF REPORT [facility] 2024-11-09 18:41:00 [id number] [place] [address] PATIENT NAME: YUNIER PRATT ADMIT DATE: 11/08/24 ACCOUNT NO: [id number] ROOM NO: [id number] AGE: 54 REPORT TYPE: eELECTROCARDIOGRAM REPORT SEX: F ADMITTING PHYSICIAN:Angela Aceves DO ATTENDING PHYSICIAN:Flynn Becerra MD Order: [id number] Test Reason : Cardiac Surgery Post Op Test Date/Time Stamp: TueNov 09 2024 18:41:01 Blood Pressure : / mmHG Vent. Rate : 074 BPM Atrial Rate : 074 BPM P-R Int : 176 ms QRS Dur : 098 ms QT Int : 408 ms P-R-T Axes : 051 071 -42 degrees QTc Int : 452 ms Normal sinus rhythm Septal infarct (cited on or before 08-NOV-2024) T wave abnormality, consider inferior ischemia Abnormal ECG When compared with ECG of 08-NOV-2024 06:35, Significant changes have occurred Confirmed by NITO JACQUES ([id number]) on 11/15/2024 1:19:49 PM Referred By: Self Referred Confirmed by:NITO JACQUES at [id number] PATIENT NAME: YUNIER PRATT [facility] 2024-11-09 18:39:00 [facility] ([facility] Critical Care Consult Note REPORT#:[id number] REPORT STATUS: Signed REPORT INITIALIZATION DATE:11/09/24 TIME: 1839 PATIENT: YUNIER PRATT UNIT #: [id number] ROOM/BED: [place] [address] : 74 AGE: 54 SEX: F ATTEND: Flynn Becerra MD ADM AUTHOR: Jean Claude Smith MD REPT SERVICE DT/TIME: 11/09/241838 * ALL edits or amendments must be made on the electronic/computer document * History of Present Illness HPI Requesting clinician: CVTS Reason for consult: post CAB managment Chief complaint: CP, SOB PCP: PCP: No Primary or Family Physician HPI: 52-year-old female with significant history of hypertension diabetes diabetic neuropathy history of CAD tobacco use who presented to an outside facility [facility] complaining of shortness of breath or chest pain. Diagnosed with elevated troponins and NSTEMI. Cardiac cath showed multivessel disease. Patient was transferred to [facility] for surgical vascularization evaluation. Patient today underwent CABG x 5 ASH to LAD SVG to diagonal VG to OM1 SVG to OM 2 SVG to RPDA bilateral lower extremity endoscopic vein harvest the left atrial appendage amputation. Patient received 1.5 L of crystalloids EBL was 200 Cell Saver received was 430 urine output through the case was 500. Cross-clamp time was 72 minutes cardiopulmonary bypass time was 78 minutes. Patient coming off pump was in V-fib that required x 1 shock and temporary pacing. Patient was extubated ultimately room and brought to the CVICU on norepinephrine at 3 mics per kilo per minute and insulin 2 units/h. Patient pCO2 was elevated at the initial gas and required BiPAP immediately after arrival. History - Adult longitudinal Past medical history: Reports: COPD, Coronary artery disease, Diabetes mellitus, Hypertension. Additional medical history: 1. DM 2. HTN 3. neuropathy Alcohol use: Denies EtOH use Drug use: Denies recreational drugs Smoking status for patients 13 years old or older: Current every day smoker Date last smoked: 11/07/24 Packs per day: 0.5 Pack years: 0 Allergies: Coded Allergies: No Known Allergies (11/08/24) Review of Systems ROS Unable to obtain due to: somnolent Objective Physical Exam VS/I O: Last Documented: Result Date Time Pulse Ox 96 11/09 1116 B/P 149/67 03/21 1116 B/P Mean 95 11/09 1116 Pulse 69 11/09 1116 Resp 19 11/09 1116 Temp 98.1 11/09 0810 O2 Delivery Room air 11/09 0423 24 hour I O ending at 0700: 11/09 0700 11/08 1900 Intake Total 240 Output Total Balance 240 Intake, Oral 240 Number 0 Bowel Movements Number Voids 1 Patient 69.7 kg Weight Weight Standing scale Measurement Method Patient Weight and BMI Weight (kg): 69.700 BMI: 24.8 Medications: Active Meds + DC'd Last 24 Hrs Ipratropium Hazard (ATROVENT) 500 MCG RTQ2H PRN PRN INH Cyanocobalamin (Vitamin B-12 500 mcg tab) 500 MCG DAILY PO Ferrous Sulfate (FERROUS SULFATE) 325 MG DAILY PO Bisacodyl (DULCOLAX) 10 MG ONCE PRN RECTAL Magnesium Hydroxide (MILK OF MAGNESIA) 30 ML ONCE PRN PO Clopidogrel Bisulfate (Plavix) 75 MG DAILY PO Famotidine (PEPCID) 20 MG DAILY PO Polyethylene Glycol (MIRALAX) 17 GM DAILY PO Pantoprazole (PROTONIX) 40 MG DAILY@0600 PO Aspirin (ASPIRIN) 81 MG DAILY PO Amiodarone HCl (CORDARONE) 200 MG TID PO Atorvastatin Calcium (LIPITOR) 40 MG 2100 PO Docusate Sodium (COLACE) 100 MG BID PO Metoprolol Tartrate (LOPRESSOR) 12.5 MG Q12HR PO Mupirocin (BACTROBAN 2% 22 GM OINTMENT) 1 APPLIC BID NASAL Quetiapine Fumarate (SeroqueL) 200 MG BEDTIME PO Sennosides (Senna Lax 8.6 MG TABLET) 17.2 MG BEDTIME PO Acetaminophen (OFIRMEV 10MG/ML) 100 ML Q6H IV Fentanyl Citrate (SUBLIMAZE) 0 .STK-MED ONE .ROUTE (DC) Ketorolac Tromethamine (TORADOL 30 MG) 0 .STK-MED ONE .ROUTE (DC) Hydromorphone HCl (DILAUDID) 0 .STK-MED ONE .ROUTE (DC) Propofol (DIPRIVAN 200MG/20ML INJECTION) 20 ML .STK-MED ONE IV (DC) Sodium Chloride (SODIUM CHLORIDE 0.9%) 50 ML .STK-MED ONE IV (DC) Sugammadex Sodium (BRIDION) 0 .STK-MED ONE IV (DC) Protamine Sulfate (PROTAMINE SULFATE) 0 .STK-MED ONE IV (DC) Calcium Chloride (CALCIUM CHLORIDE) 0 .STK-MED ONE IV (DC) Ipratropium Hazard (ATROVENT) 500 MCG RTQ4H INH Ephedrine Sulfate (ePHEDrine sulfate) 0 .STK-MED ONE .ROUTE (DC) Acetaminophen (TYLENOL) 650 MG Q4H PRN PRN PO Acetaminophen (TYLENOL) 650 MG Q4H PRN PRN RECTAL Albumin Human (ALBUMINAR 25%) 25 GM ASDIR PRN IV Calcium Chloride (CALCIUM CHLORIDE) 1 GM ASDIR PRN IV Cefazolin Sodium (KEFZOL OR ANCEF) 3 GM ONCE ONE IV Sodium Chloride (SODIUM CHLORIDE 0.9%) 250 ML Dextrose/Water (DEXTROSE 10% IN WATER) 125 ML ASDIR PRN IV (CKD) Dextrose/Water (DEXTROSE 10% IN WATER) 250 ML ASDIR PRN IV (CKD) Epinephrine (ADRENALIN CHLORIDE) 4 MG ASDIR IV Dextrose/Water (DEXTROSE 5% WATER) 246 ML Glucagon (GLUCAGON) 1 MG ASDIR PRN IM Insulin Human Regular (MYXREDLIN 100 UNITS/NS 100ML) 100 ML ASDIR IV ( CKD) Magnesium Sulfate (MAGNESIUM SULFATE 4GM/SWFI 100ML) 100 ML ASDIR PRN IV Magnesium Sulfate (MAGNESIUM SULFATE 2GM/SWFI 50ML) 50 ML ASDIR PRN IV Magnesium Sulfate/Dextrose (MAGNESIUM SULFATE 1GM/D5W 100ML) 100 ML ASDIR PRN IV Nicardipine HCl (niCARdipine HCl) 0 .STK-MED ONE IV (DC) Nitroglycerin/Dextrose (NITROGLYCERIN 50,000MCG/D5W 250ML) 250 ML ASDIR IV Norepinephrine/Dextrose (Norepinephrine 8 MG/D5W 250 mL) 250 ML TITRATE IV Ondansetron HCl (ZOFRAN) 4 MG Q6H PRN PRN IV Oxycodone HCl (ROXICODONE) 5 MG Q4H PRN PRN PO Oxycodone HCl (ROXICODONE) 10 MG Q4H PRN PRN PO Potassium Chloride (KCL 20MEQ/SWFI 100ML) 100 ML ASDIR PRN IV Sodium Bicarbonate (SODIUM BICARBONATE) 50 MEQ ASDIR PRN IV Sodium Chloride (SODIUM CHLORIDE 0.9%) 250 ML Q24H IV Rocuronium Hazard (ZEMURON) 0 .STK-MED ONE IV (DC) Cefazolin Sodium (KEFZOL OR ANCEF) 0 .STK-MED ONE .ROUTE (DC) Sodium Chloride (SODIUM CHLORIDE 0.9%) 250 ML .STK-MED ONE IV (DC) Vancomycin HCl (VANCOMYCIN HCL) 0 .STK-MED ONE .ROUTE (DC) Albumin Human (ALBUMINAR-25%) 100 ML .STK-MED ONE IV (DC) Heparin Sodium (HEPARIN SODIUM) 0 .STK-MED ONE .ROUTE (DC) Sodium Chloride (SODIUM CHLORIDE 0.9%) 100 ML .STK-MED ONE IV (DC) Lidocaine HCl (Lidocaine HCl 2% Luer-Jet) 0 .STK-MED ONE IV (DC) Magnesium Sulfate (MAGNESIUM SULFATE) 0 .STK-MED ONE IV (DC) Phenylephrine HCl (FARIBA-SYNEPHRINE 10MG/ML AMP) 0 .STK-MED ONE .ROUTE (DC ) Sodium Bicarbonate (SODIUM BICARBONATE) 0 .STK-MED ONE IV (DC) Papaverine HCl (PAPAVERINE HC) 0 .STK-MED ONE IV (DC) Papaverine HCl (PAPAVERINE HC) 0 .STK-MED ONE IV (DC) Heparin Sodium (HEPARIN SODIUM) 0 .STK-MED ONE .ROUTE (DC) Midazolam HCl (VERSED) 0 .STK-MED ONE .ROUTE (DC) Propofol (DIPRIVAN 200MG/20ML INJECTION) 20 ML .STK-MED ONE IV (DC) Aminocaproic Acid (AMICAR) 0 .STK-MED ONE .ROUTE (DC) Dexamethasone Sodium Phosphate (DECADRON) 0 .STK-MED ONE .ROUTE (DC) Fentanyl Citrate (SUBLIMAZE) 0 .STK-MED ONE IV (DC) Heparin Sodium (HEPARIN SODIUM) 0 .STK-MED ONE .ROUTE (DC) Lidocaine HCl (XYLOCAINE) 0 .STK-MED ONE .ROUTE (DC) Ondansetron HCl (ZOFRAN) 0 .STK-MED ONE .ROUTE (DC) Rocuronium Hazard (ZEMURON) 0 .STK-MED ONE IV (DC) Mupirocin (BACTROBAN 2% 22 GM OINTMENT) 1 APPLIC BID NASAL Epinephrine HCl (EPINEPHrine 4 mg/D5W 250 mL) 250 ML .STK-MED ONE IV (DC ) Insulin Human Regular (MYXREDLIN 100 UNITS/NS 100ML) 100 ML .STK-MED ONE IV (DC) Norepinephrine/Dextrose (Norepinephrine 8 MG/D5W 250 mL) 250 ML .STK-MED ONE IV (DC) Protamine Sulfate (PROTAMINE SULFATE) 0 .STK-MED ONE IV (DC) Ropivacaine (NAROPIN 0.5% 150 MG/30mL) 0 .STK-MED ONE .ROUTE (DC) Fluticasone Propionate (Flonase Nasal Baxter) 2 SPRAY DAILY NASAL (CKD) Cefazolin Sodium (ceFAZolin 2 GM Inj) 2 GM PREOP ONCALL IV (CKD) Sodium Chloride (SODIUM CHLORIDE) 20 ML Metoprolol Tartrate (LOPRESSOR) 6.25 MG ONCE ONE PO (DC) Vancomycin HCl (VANCOMYCIN HCL) 1,000 MG PREOP ONCALL IV (CKD) Sodium Chloride (SODIUM CHLORIDE 0.9%) 250 ML Verapamil HCl (ISOPTIN) 16.6 MG .Q24H ONE IV (CKD) Heparin Sodium (Porcine) (HEPARIN SODIUM) 1,660 UNIT Sodium Bicarbonate (SODIUM BICARBONATE) 0.7 ML Nitroglycerin/Dextrose (NITROGLYCERIN 50MG/D5W 250ML) 8.3 MG Lactated Ringer's (LACTATED RINGERS) 949.5 ML Quetiapine Fumarate (SeroqueL) 200 MG ONCE ONE PO (DC) Atorvastatin Calcium (LIPITOR) 40 MG 2100 PO (DC) Gabapentin (NEURONTIN) 1,200 MG TID PO (DC) Hydralazine HCl (APRESOLINE) 10 MG Q6H PRN PRN IV Gabapentin (NEURONTIN) 1,200 MG TID PO Acetaminophen (TYLENOL EXTRA STRENGTH) 1,000 MG PREOP ONCALL PO (CKD) Gabapentin (NEURONTIN) 200 MG PREOP ONCALL PO (CKD) Sodium Chloride (SODIUM CHLORIDE 0.9%) 100 ML ASDIR PRN IV Sodium Chloride (SODIUM CHLORIDE 0.9%) 100 ML ASDIR PRN IV Sodium Chloride (SODIUM CHLORIDE 0.9%) 100 ML ASDIR PRN IV Aspirin (ASPIRIN) 81 MG DAILY PO (DC) Duloxetine HCl (CYMBALTA) 20 MG DAILY PO Famotidine (PEPCID) 20 MG DAILY IV (DC) Furosemide (LASIX 40 mg/4 mL INJECTION) 40 MG BID IV Nicotine (NICODERM) 21 MG DAILY TRANSDERM (CKD) Carvedilol (COREG) 6.25 MG C BK DIN PO Insulin Human Lispro (Admelog) 0 AC HS SUBQ Heparin Sodium (HEPARIN 5000 UNITS/ML) 5,000 UNIT ASDIR PRN PRN IV Heparin Sodium (HEPARIN 5000 UNITS/ML) 3,000 UNIT ASDIR PRN PRN IV Acetaminophen (TYLENOL) 650 MG Q4H PRN PRN PO Dextrose/Water (DEXTROSE 10% IN WATER) 125 ML ASDIR PRN IV (CKD) Dextrose/Water (DEXTROSE 10% IN WATER) 250 ML ASDIR PRN IV (CKD) Glucagon (GLUCAGON) 1 MG ASDIR PRN IM Heparin Sodium (Porcine) (HEPARIN 25,000 UNITS/ 1/2NS 500ML) 500 ML ASDIR IV (CKD) Hydrocodone Bitart/Acetaminophen (NORCO 5/325) 1 TAB Q6H PRN PRN PO Morphine Sulfate (morphine SULFATE) 2 MG Q4H PRN PRN IV Ondansetron HCl (ZOFRAN) 4 MG Q4H PRN PRN IV General appearance: lethargic, alert, no acute distress, no respiratory distress Head/Eyes: EOMI, PERRLA ENT: moist mucosal membranes Neck: non-tender, no JVD, R IJ CVC Cardiovascular: normal capillary refill, normal heart sounds Respiratory: decreased breath sounds, prolonged exp phase, symmetric expansion, no distress Abdomen: soft, non-tender, no guarding Extremities: moves all, normal capillary refill 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: CNII-XII intact, normal speech, reflexes equal bilat, no motor deficits, no sensory deficits, somnolent but follows commands Results Findings/Data: Laboratory Tests 11/09/24 0137: [Embedded Image Not Available] Laboratory Tests 11/09 11/09 11/09 11/09 1836 1739 1719 1649 Blood Gas Puncture Site Art Line O2 Saturation (90 - 100 %) 97.9 98.1 100.0 100.0 ABG pH (7.35 - 7.45) 7.310 L 7.448 7.386 7.390 ABG pCO2 (35.0 - 45 mmHg) 60.3 *H 34.2 L 42.2 42.1 ABG pO2 (80 - 100.0 mmHg) 115.3 H 99.5 477.9 *H 407.2 *H ABG PO2/FiO2 Ratio (mm/Hg) 192.10 ABG HCO3 (22.0 - 26.0 MMOL/L) 30.4 *H 23.7 25.3 25.5 ABG Total CO2 (22 - 29) 32.2 H 24.7 26.6 26.8 ABG Base Excess (0 - +/ MMOL/L) 4.1 H -0.2 L 0.2 0.5 ABG Hematocrit (33 - 45 %) 24 L 22 L 23 L 20 L ABG Hemoglobin (11.0 - 15.0 G/DL) 8.3 L 7.4 L 7.9 L 6.9 L Tereso Test N/A Sodium (134 - 147 mmol/L) 146 146 143 141 Potassium (3.4 - 5.0 mmol/L) 4.4 3.7 4.7 4.1 Chloride (100 - 108 mmol/L) 110 H 112 H 105 104 Ionized Calcium (1.12 - 1.32 MMOL/L) 1.45 H 1.35 H 1.19 1.19 Lactic Acid (0.9 - 1.7 mmol/l) 1.6 1.9 H 1.5 1.5 Temperature (F) 98.4 O2 Delivery Device simple mask FiO2 (%) 60.0 11/09 11/09 11/09 1620 1551 1452 Blood Gas O2 Saturation (90 - 100 %) 100.0 99.8 100.0 ABG pH (7.35 - 7.45) 7.463 H 7.429 7.422 ABG pCO2 (35.0 - 45 mmHg) 40.0 39.3 38.5 ABG pO2 (80 - 100.0 mmHg) 449.1 *H 229.4 *H 545.9 *H ABG HCO3 (22.0 - 26.0 MMOL/L) 28.6 *H 26.1 H 25.1 ABG Total CO2 (22 - 29) 29.8 H 27.3 26.3 ABG Base Excess (0 - +/ MMOL/L) 4.4 H 1.6 0.7 ABG Hematocrit (33 - 45 %) 22 L 26 L 24 L ABG Hemoglobin (11.0 - 15.0 G/DL) 7.3 L 8.8 L 8.3 L Sodium (134 - 147 mmol/L) 144 142 145 Potassium (3.4 - 5.0 mmol/L) 3.7 4.2 3.8 Chloride (100 - 108 mmol/L) 104 106 108 Ionized Calcium (1.12 - 1.32 MMOL/L) 1.14 1.22 1.19 Lactic Acid (0.9 - 1.7 mmol/l) 0.9 0.7 L < 0.3 L Laboratory Tests 11/09 11/09 11/09 11/09 11/09 1836 1739 1719 1649 1620 Chemistry POC Creatinine (0.6 - 1.3 mg/dL) 0.6 0.5 L 0.6 0.6 0.6 POC Glucose (mg/dL) (70 - 110 MG/DL) 151 H 139 H 138 H 147 H 160 H 11/09 11/09 11/09 11/09 11/09 1551 1452 1301 0810 0137 Chemistry Sodium (134 - 147 mEq/L) 141 Potassium (3.4 - 5.0 mEq/L) 3.8 Chloride (100 - 108 mEq/L) 108 Carbon Dioxide (21 - 33 mEq/l) 31 Anion Gap (0 - 20) 6 BUN (7 - 25 mg/dL) 12 Creatinine (0.6 - 1.3 mg/dL) 0.9 POC Creatinine (0.6 - 1.3 mg/dL) 0.4 L 0.5 L Glomerular Filtr Rate (90 - 95) 76.9 L Glucose (77 - 141 mg/dL) 233 H POC Glucose (70 - 110 MG/DL) 265 H POC Glucose (mg/dL) (70 - 110 195 H 195 H MG/DL) Calcium (8.0 - 10.5 mg/dL) 8.6 Magnesium (1.6 - 2.6 mg/dL) 1.83 Serum , Qual (NEGATIVE) SERUM NEGATIVE 11/08 2128 Chemistry POC Glucose (70 - 110 MG/DL) 370 H Laboratory Tests 11/09 11/09 11/09 11/09 11/09 1742 1728 1656 1629 1559 Coagulation Activated Coag Time (74 - 137 SEC) 106 579 H 458 H 619 H 498 H 11/09 11/09 1456 0137 Coagulation INR (0.8 - 1.2) 1.2 PTT (Ravalli) (25.0 - 39.5 Seconds) 52.0 H PT Patient/Control Mix (9.3 - 12.9 SECONDS) 13.5 H Activated Coag Time (74 - 137 SEC) 135 Laboratory Tests 11/09 0137 Hematology WBC (4.5 - 11.0 x10 3/uL) 6.2 RBC (3.54 - 5.02 x10 6/uL) 3.63 Hgb (11.0 - 15.0 g/dL) 8.6 L Hct (33.0 - 45.0 %) 28.7 L MCV (81.0 - 99.0 fL) 79.1 L MCH (27.0 - 33.0 pg) 23.7 L MCHC (33.0 - 37.0 g/dL) 30.0 L RDW (11.5 - 14.5 %) 16.5 H Plt Count (150 - 400 x10 3/uL) 146 L MPV (7.0 - 9.0 fL) 11.0 H Neut % (Auto) (56.0 - 77.0 %) 58.1 Lymph % (Auto) (14.0 - 32.0 %) 29.6 Brule % (Auto) (4.8 - 9.0 %) 9.2 H Eos % (Auto) (0.3 - 3.7 %) 2.3 Baso % (Auto) (0.0 - 2.0 %) 0.5 Neut # (Auto) (2.0 - 7.6 x10 3/uL) 3.59 Lymph # (Auto) (1.0 - 3.8 x10 3/uL) 1.83 Brule # (Auto) (0.1 - 0.8 x10 3/uL) 0.57 Eos # (Auto) (0.0 - 0.2 x10 3/uL) 0.14 Baso # (Auto) (0.0 - 0.2 x10 3/uL) 0.03 Abs Immat Gran (auto) (0.00 - 0.03 x10 3/uL) 0.02 Immature Gran % (0.0 - 2.0 %) 0.3 Nucleated RBC % (0 - 0 %) 0.0 Nucleated RBCs # (Man) (0.0 - 0.1 x10 3/uL) 0.00 Microbiology: 11/08 1555 NASAL: MSSA Surveillance Screen - ORD 11/08 1555 NASAL: MRSA DNA Surveillance Screen - ORD 11/08 0849 NASAL: MSSA Surveillance Screen - COMP 11/08 948 NASAL: MRSA DNA Surveillance Screen - COMP 11/09 251 NASAL: MRSA DNA Surveillance Screen - COMP Radiology data: Recent Impressions: ULTRASOUND - DUP UE ART UNI/LTD 11/09 906 Report Impression - Status: SIGNED Entered: 11/09/2024 0951 IMPRESSION: Positive sonographic Tereso test suggesting no collateral flow from the ulnar artery to the radial artery. Palmar arch supplied by the radial artery. Impression By: [facility] Ange Pulido M.D. Diagnosis, Assessment Plan Diagnosis, Assessment Plan Problem list/A P: 1. Tobacco use 2. S/P CABG x 5 3. CAD (coronary artery disease) 4. DM neuropathy, type II diabetes mellitus 5. DM (diabetes mellitus) 6. HTN (hypertension) Critical care time: Minutes: 60 Separately billable procedures excluded from time. Free text DxA P: 52-year-old female significant past med history of hypertension diabetes CAD diabetic neuropathy current tobacco use who was evaluated outside facility for an NSTEMI and then found to have multivessel disease transferred for surgical vascularization. Assessment History hypertension History of diabetes History of CAD History of recent NSTEMI History of diabetic neuropathy Current tobacco use Status post CABG x 5 Plan Admit to CVICU Close hemodynamic metabolic respiratory neurological monitoring. Continue telemetry Close monitor chest tube output for any signs of tamponade or bleeding Inotropic and pressor support following CVTS post procedure protocols. Goal cardiac index more than 2.2 and mean arterial pressure more than 65. Wean off as able fluid resuscitation as needed N.p.o. for now till more awake and interactive then advance as tolerated and bowel regimen. Initial ABG shows significant hypercarbia likely secondary to tobacco use and some somnolence will start BiPAP wean off as able. Keep O2 sats more than 92% wean off FiO2 as able aggressive pulmonary toilet incentive spirometry and pulm clearance as needed. Monitor urinary output renal function and replete electrolytes as needed Monitor H H transfuse for hemoglobin less than 7 or active bleeding Mechanical DVT prophylaxis for now Multimodal pain management PT/OT ambulation as able Restart home medications as able Tight glucose control use insulin as needed glucose less than 180 Perioperative antibiotics per primary service at 1847 RPT #:[id number] END OF REPORT [facility] 2024-11-09 18:20:00 [id number] [address] PATIENT NAME: YUNIER PRATT ADMIT DATE: 11/08/24 ACCOUNT NO: [id number] ROOM NO: 336 AGE: 54 REPORT TYPE: OPERATIVE REPORT SEX: F ADMITTING PHYSICIAN:Angela Aceves DO ATTENDING PHYSICIAN:Leyda Trotter MD OPERATION DATE: 11/09/2024 PREOPERATIVE DIAGNOSIS: Coronary artery disease. POSTOPERATIVE DIAGNOSIS: Coronary artery disease. PROCEDURES: 1. Coronary artery bypass graft surgery x5 (ASH to LAD, saphenous vein to diagonal, saphenous vein to first marginal, saphenous vein to second marginal, saphenous vein to PDA). 2. Amputation of left atrial appendage. 3. Endoscopic vein harvest bilateral greater saphenous vein. 4. Posterior pericardiotomy. SURGEON: Vignesh Ross MD WINDSURFING INSTRUCTOR: Kang Butler. ANESTHESIOLOGIST: Dr. Davis. ANESTHESIA: General endotracheal anesthesia. ESTIMATED BLOOD LOSS: 100 mL. INDICATIONS: Ms. Pratt is a pleasant 54-year-old female with severe triple-vessel coronary artery disease. After due preop counseling, she was brought to the operating room today for surgical revascularization. Left radial artery was not harvested. It was very small in size and the Tereso's test was negative. FINDINGS: 1. Tereso's test shows incomplete palmar arch. 2. Vein was harvested from the bilateral thighs using endoscopic vein harvest technique. Vein was of satisfactory quality measuring about 4 mm in size. 3. Normal sternum. 4. Good quality ASH measuring 2 mm in size with excellent flow. 5. Normal pericardium without any intrapericardial adhesion and minimal intrapericardial fluid. 6. LAD 2 mm, good quality artery. 7. Diagonal 1.75 mm, slightly diseased artery. 8. First marginal 2 mm, good quality artery. PATIENT NAME: YUNIER PRATT 9. Second marginal 2 mm, good quality artery. 10. PDA 2 mm, good quality artery. 11. Left atrial appendage was amputated 0.5 cm from the base. This was then repaired with two layers of running pledgeted 4-0 Prolene suture. 12. A cruciate incision was made in the posterior pericardium. DESCRIPTION OF PROCEDURE: Ms. Pratt was identified in the preop holding area and brought to the operating room and placed supine on the operating table. After induction of general endotracheal anesthesia, Ramirez catheter, radial arterial line, antibiotics were placed. The patient's anterior torso and both lower extremities were prepped and draped in standard surgical fashion. Vein was harvested from both the thighs using endoscopic vein harvest technique. Following harvesting of vein, subcutaneous tissue was closed with 2-0 Vicryl and skin with 4-0 Vicryl. Simultaneously, median sternotomy was performed and left internal mammary artery was harvested. The patient was heparinized. Pericardium was opened longitudinally and pericardial well was created. Cardiopulmonary bypass was instituted using ascending aorta and 3-stage cannula in the right atrium. The patient was cooled to 34 degrees centigrade. Cross-clamp was applied and the heart was arrested with 1.5 liters of antegrade cold blood cardioplegia. Cardioplegia was repeated at interval of 10 minutes all throughout duration of cardiopulmonary bypass. We began by exploring the PDA. This was a good quality artery measuring 2 mm in size. Arteriotomy was performed with [place] blade and extended with [place] scissors. A segment of previously harvested reverse saphenous vein was anastomosed in end-to-side manner using 7-0 Prolene suture. Vein graft to PDA was brought along the right side of the heart and sized. Aortotomy was performed on the right aspect of the aorta using 4-mm punch. Proximal anastomosis of the PDA graft was then performed using running 6-0 Prolene suture. Left atrial appendage was amputated half a centimeter from the base. This was then repaired with two layers of running pledgeted 4-0 Prolene suture. A cruciate incision was made in the posterior pericardium. Next, the second marginal was explored. This was a good quality artery measuring 2 mm in size. Arteriotomy was performed with [place] blade and extended with [place] scissors. A segment of previously harvested reverse saphenous vein was anastomosed in an end-to-side manner using 7-0 Prolene suture. Vein graft to second marginal was brought along the left side of the heart and sized. Aortotomy was performed on the left aspect of the aorta using 4-mm punch. Proximal anastomosis of the second marginal graft was then performed using running 6-0 Prolene suture. First marginal was then explored. This was a good quality artery measuring 2 mm in size. Arteriotomy was performed with a [place] blade and extended with [place] scissors. A segment of previously harvested reverse saphenous vein was anastomosed in end-to-side manner using 7-0 Prolene suture. Vein graft to first marginal was brought along the left side of the heart and sized. Aortotomy was performed on the left aspect of the aorta using 4-mm punch. Proximal anastomosis of the first marginal graft was then performed using running 6-0 Prolene suture. Rewarming was then commenced at this stage. Next the diagonal was explored. This was a slightly diseased artery measuring 1.75 mm in size. Arteriotomy was performed with a [place] blade and extended with [place] scissors. A segment of previously harvested reverse saphenous vein was anastomosed in end-to-side manner using 7-0 Prolene suture. Vein graft to diagonal was brought along the left side of the heart and sized. Aortotomy was performed on the left aspect of the aorta using 4-mm punch. Proximal anastomosis of the diagonal graft was then performed using running 6-0 Prolene suture. Finally, the LAD was explored. This was a good quality artery measuring 2 mm in size. Arteriotomy was performed with a [place] PATIENT NAME: YUNIER PRATT blade and extended with [place] scissors. ASH was anastomosed in end-to-side manner using running 8-0 Prolene suture. ASH pedicle was tacked to epicardium using two interrupted 6-0 Prolene suture. A slit was made in the pericardium on the left aspect, so as to accommodate the ASH. Careful de-aeration was performed and the cross-clamp was released. One active ventricular wire was placed. A 28-Chadian chest tube was placed in the mediastinum and 28-angled chest tube was placed in the left pleural space. Once the patient had temperature, she was weaned off cardiopulmonary bypass with minimal inotropic support. Heparin was reversed with protamine. Decannulation was uneventful. After confirming hemostasis, the chest was closed in layers using stainless steel wires for the sternum, #1 Vicryl for the fascia, 2-0 Vicryl for the subcutaneous tissue and 4-0 Vicryl for the skin. The patient was transferred to intensive care unit, intubated, in stable condition. Dictated By: Vignesh Ross MD Date Dictated: 11/09/2024 18:20:05 Date Transcribed: 11/09/2024 21:16:04 /[facility] Receipt ID: [id number] Authenticated by Antoinette Ross MD On 11/13/2024 07:31:05 AM at 0731 PATIENT NAME: YUNIER PRATT [facility] 2024-11-09 18:06:00 [facility] ([facility]) Brief Op Note REPORT#:[id number] REPORT STATUS: Signed REPORT INITIALIZATION DATE:11/09/24 TIME: 1805 PATIENT: YUNIER PRATT UNIT #: [id number] ROOM/BED: [place] [address] : 72 AGE: 54 SEX: F ATTEND: Leyda Trotter MD ADM AUTHOR: Antoinette Ross MD REPT SERVICE DT/TIME: 11/09/241805 * ALL edits or amendments must be made on the electronic/computer document * Op/Inv Proc Note - Brief Pre-procedure diagnosis: CAD Post-procedure diagnosis: same as pre procedure dx Procedures performed: CABG (ASH-LAD, SVG-OM1, SVG-OM2, SVG-Diag, SVG-PDA) EVH ([place] GSV) ALAA PP Primary Surgeon: Vandana Bag Mender(s): Kang Butler Findings: LAD-2mm Complications: none Estimated blood loss in ml's: 100 cc Specimens removed/altered: SAHRA at 0832 RPT #:[id number] END OF REPORT [facility] 2024-11-09 09:46:00 [facility] ([facility]) Clinical Note REPORT#:[id number] REPORT STATUS: Signed REPORT INITIALIZATION DATE:11/09/24 TIME: 945 PATIENT: YUNIER PRATT UNIT #: [id number] ROOM/BED: 3359-1 : 72 AGE: 54 SEX: F ATTEND: Flynn Becerra MD ADM AUTHOR: Flynn Becerra MD REPT SERVICE DT/TIME: 11/09/24 0946 * ALL edits or amendments must be made on the electronic/computer document * Clinical Note Note: I verified with the patient and family, She does take 200mg of seroquel at night and 1,200mg of gabapentin q8hrs. at home. at 0948 RPT #:[id number] END OF REPORT [facility] 2024-11-09 09:02:00 [facility] ([facility]) Hospitalist Progress Note REPORT#:[id number] REPORT STATUS: Signed REPORT INITIALIZATION DATE:11/09/24 TIME: 901 PATIENT: YUNIER PRATT UNIT #: [id number] ROOM/BED: 2204-1 : 72 AGE: 54 SEX: F ATTEND: Flynn Becerra MD ADM AUTHOR: David Bass MD R1 REPT SERVICE DT/TIME: 11/09/24 0902 * ALL edits or amendments must be made on the electronic/computer document * David Miles 11/09/24 0902: Subjective Chief complaint: Doing well, feeling nervous for surgery. CABG today. HPI: 54 yo F w PMHx of HTN, DM presented for evaluation of chest pain at [facility]. Patient was found to have NSTEMI on blood work. She underwent LHC which showed severe multivessel disease in LAD and RCA. Patient was transported to [facility] for evaluation of CABG. Currently denies chest pain, shortness of breath, nausea, headache, diaphoresis, numbness, tingling and weakness. Patient is a current everyday smoker of 1/2 pack per day. 20 year smoking history of 1-1.5 packs per day. Denied history of COPD or asthma. Objective General VS/I O: Vital Signs: Date Time Temp Pulse Resp B/P B/P Pulse O2 O2 Flow FiO2 Mean Ox Delivery Rate 11/09 0810 98.1 88 20 161/83 108.6 98 11/09 0600 74 17 97 11/09 0423 98.6 79 20 133/70 91.0 97 Room air 11/09 0400 74 18 97 11/09 0200 82 98 11/09 0005 98.4 88 22 131/74 92.8 99 Room air 11/08 2200 86 98 11/08 2100 83 98 11/08 1825 98.6 88 25 143/70 0.0 98 Room air 11/08 1638 99.5 84 20 178/84 0.0 98 Room air 11/08 1635 86 23 178/84 120 100 11/08 1144 98.2 94 16 162/81 107.8 100 11/08 0913 97.9 79 16 155/79 104.2 98 24 hour I O ending at 0700: 11/09 0700 11/08 1900 Intake Total 240 Output Total Balance 240 Intake, Oral 240 Number 0 Bowel Movements Number Voids 1 Patient 69.7 kg Weight Weight Standing scale Measurement Method PATIENT WEIGHT: Weight (lb): 153 Weight (oz): 10.6 Weight (kg): 69.700 Medications: Active Meds + DC'd Last 24 Hrs Quetiapine Fumarate (SeroqueL) 200 MG BEDTIME PO Fluticasone Propionate (Flonase Nasal Baxter) 2 SPRAY DAILY NASAL (CKD) Cefazolin Sodium (ceFAZolin 2 GM Inj) 2 GM PREOP ONCALL IV (CKD) Sodium Chloride (SODIUM CHLORIDE) 20 ML Metoprolol Tartrate (LOPRESSOR) 6.25 MG ONCE ONE PO (DC) Vancomycin HCl (VANCOMYCIN HCL) 1,000 MG PREOP ONCALL IV (CKD) Sodium Chloride (SODIUM CHLORIDE 0.9%) 250 ML Verapamil HCl (ISOPTIN) 16.6 MG .Q24H ONE IV (CKD) Heparin Sodium (Porcine) (HEPARIN SODIUM) 1,660 UNIT Sodium Bicarbonate (SODIUM BICARBONATE) 0.7 ML Nitroglycerin/Dextrose (NITROGLYCERIN 50MG/D5W 250ML) 8.3 MG Lactated Ringer's (LACTATED RINGERS) 949.5 ML Quetiapine Fumarate (SeroqueL) 200 MG ONCE ONE PO (DC) Atorvastatin Calcium (LIPITOR) 40 MG 2100 PO Gabapentin (NEURONTIN) 600 MG BID PO (DC) Gabapentin (NEURONTIN) 1,200 MG TID PO (DC) Hydralazine HCl (APRESOLINE) 10 MG Q6H PRN PRN IV Gabapentin (NEURONTIN) 1,200 MG TID PO Acetaminophen (TYLENOL EXTRA STRENGTH) 1,000 MG PREOP ONCALL PO (CKD) Gabapentin (NEURONTIN) 200 MG PREOP ONCALL PO (CKD) Sodium Chloride (SODIUM CHLORIDE 0.9%) 100 ML ASDIR PRN IV Sodium Chloride (SODIUM CHLORIDE 0.9%) 100 ML ASDIR PRN IV Sodium Chloride (SODIUM CHLORIDE 0.9%) 100 ML ASDIR PRN IV Gabapentin (NEURONTIN) 1,200 MG TID PO (CAN) Albuterol Sulfate (ALBUTEROL SULFATE) 2.5 MG RTONCE ONE NEB (DC) Aspirin (ASPIRIN) 81 MG DAILY PO Duloxetine HCl (CYMBALTA) 20 MG DAILY PO Famotidine (PEPCID) 20 MG DAILY IV Furosemide (LASIX 40 mg/4 mL INJECTION) 40 MG BID IV Gabapentin (NEURONTIN) 300 MG TID PO (DC) Nicotine (NICODERM) 21 MG DAILY TRANSDERM (CKD) Carvedilol (COREG) 6.25 MG C BK DIN PO Insulin Human Lispro (Admelog) 0 AC HS SUBQ Potassium Chloride (POTASSIUM CHLORIDE 20MEQ TAB.ER) 40 MEQ Q2H PO (DC) Heparin Sodium (HEPARIN 5000 UNITS/ML) 5,000 UNIT ASDIR PRN PRN IV Heparin Sodium (HEPARIN 5000 UNITS/ML) 3,000 UNIT ASDIR PRN PRN IV Acetaminophen (TYLENOL) 650 MG Q4H PRN PRN PO Dextrose/Water (DEXTROSE 10% IN WATER) 125 ML ASDIR PRN IV (CKD) Dextrose/Water (DEXTROSE 10% IN WATER) 250 ML ASDIR PRN IV (CKD) Glucagon (GLUCAGON) 1 MG ASDIR PRN IM Heparin Sodium (Porcine) (HEPARIN 25,000 UNITS/ 1/2NS 500ML) 500 ML ASDIR IV (CKD) Hydrocodone Bitart/Acetaminophen (NORCO 5/325) 1 TAB Q6H PRN PRN PO Morphine Sulfate (morphine SULFATE) 2 MG Q4H PRN PRN IV Ondansetron HCl (ZOFRAN) 4 MG Q4H PRN PRN IV Physical Exam General appearance: alert, awake, oriented Head/Eyes: atraumatic, normocephalic ENT: moist mucosal membranes, normal dentition Neck: full range of motion, supple/no meningismus Cardiovascular: normal heart sounds, regular rate rhythm, no murmur Respiratory: aerating well, clear to auscultation, symmetric expansion, no distress Abdomen: non-tender, soft, no distention, no guarding, no rebound Extremities: moves all, no edema 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, oriented X 3, CNII-XII intact, no motor deficits, no sensory deficits Skin: dry, intact, no rash Psychiatry: normal affect, normal mood Results Findings/Data: Laboratory Tests 11/09 11/08 11/08 11/08 11/08 0137 2129 1631 1147 1145 Chemistry Sodium (134 - 147 mEq/L) 141 Potassium (3.4 - 5.0 mEq/L) 3.8 Chloride (100 - 108 mEq/L) 108 Carbon Dioxide (21 - 33 mEq/l) 31 Anion Gap (0 - 20) 6 BUN (7 - 25 mg/dL) 12 Creatinine (0.6 - 1.3 mg/dL) 0.9 Glomerular Filtr Rate (90 - 95) 76.9 L Glucose (77 - 141 mg/dL) 233 H POC Glucose (70 - 110 MG/DL) 370 H 126 H 334 H 334 H Calcium (8.0 - 10.5 mg/dL) 8.6 Magnesium (1.6 - 2.6 mg/dL) 1.83 11/08 11/08 0949 0914 Chemistry POC Glucose (70 - 110 MG/DL) 209 H Troponin I High Sens (0 - 34 ng/L) 1298 *H Laboratory Tests 11/09 11/08 11/08 0137 1724 0949 Coagulation INR (0.8 - 1.2) 1.2 PTT (Ravalli) (25.0 - 39.5 Seconds) 52.0 H 47.9 H 32.6 PT Patient/Control Mix (9.3 - 12.9 SECONDS) 13.5 H Laboratory Tests 11/09 013 Hematology WBC (4.5 - 11.0 x10 3/uL) 6.2 RBC (3.54 - 5.02 x10 6/uL) 3.63 Hgb (11.0 - 15.0 g/dL) 8.6 L Hct (33.0 - 45.0 %) 28.7 L MCV (81.0 - 99.0 fL) 79.1 L MCH (27.0 - 33.0 pg) 23.7 L MCHC (33.0 - 37.0 g/dL) 30.0 L RDW (11.5 - 14.5 %) 16.5 H Plt Count (150 - 400 x10 3/uL) 146 L MPV (7.0 - 9.0 fL) 11.0 H Neut % (Auto) (56.0 - 77.0 %) 58.1 Lymph % (Auto) (14.0 - 32.0 %) 29.6 Brule % (Auto) (4.8 - 9.0 %) 9.2 H Eos % (Auto) (0.3 - 3.7 %) 2.3 Baso % (Auto) (0.0 - 2.0 %) 0.5 Neut # (Auto) (2.0 - 7.6 x10 3/uL) 3.59 Lymph # (Auto) (1.0 - 3.8 x10 3/uL) 1.83 Brule # (Auto) (0.1 - 0.8 x10 3/uL) 0.57 Eos # (Auto) (0.0 - 0.2 x10 3/uL) 0.14 Baso # (Auto) (0.0 - 0.2 x10 3/uL) 0.03 Abs Immat Gran (auto) (0.00 - 0.03 x10 3/uL) 0.02 Immature Gran % (0.0 - 2.0 %) 0.3 Nucleated RBC % (0 - 0 %) 0.0 Nucleated RBCs # (Man) (0.0 - 0.1 x10 3/uL) 0.00 Radiology data: Recent Impressions: CAT SCAN - CT CHEST W/O CONTRAST 11/08 3832 Report Impression - Status: SIGNED Entered: 11/08/2024 1019 Impression: 1. There are moderate bilateral pleural effusions. There is moderate consolidation within the bilateral lower lobes. 2. Mildly prominent precarinal adenopathy measures 1.4 cm in short axis diameter. This may be reactive. This exam was performed according to our departmental dose-optimization program, which includes automated exposure control, adjustment of the mA and/or kV according to patient size and/or use of iterative reconstruction technique Impression By: [email or web address] - Remberto Pfeiffer M.D. RADIOLOGY - XR CHEST 1 V 11/08 8932 Report Impression - Status: SIGNED Entered: 11/08/2024 8386 IMPRESSION: Bilateral pleural effusions and bilateral lower lobe consolidative changes, similar to the CT performed the same day Impression By: [email or web address] - Samara Gordon M.D. Diagnosis, Assessment Plan Consultants: cardiology, cardiovascular surgery Free Text DxA P Notes Free text DxA P notes: 54 yo F w PMHx of HTN, DM presented for evaluation of SOB and chest pain at [facility]. Patient was found to have NSTEMI. 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 Patient was transported to [facility] for CABG evaluation. Assessment and Plan NSTEMI Multivessel Coronary Artery Disease - LHC done at [facility] - Cardiology and Cardiothoracic Surgery consulted - Troponin Trend 1099>1148>1298 - BNP 687 - Heparin gtt - Apirin 81MG daily + Atorvastatin 40MG daily - Monitor on Telemetry - Echocardiogram 11/08: LVEF 50-54%. No RWMA, Grade I DD. Dilated LA. RSVP 35-40 mmHg - CABG planned for today 11/09 SOB likely secondary to Volume overload - CT chest showing Bilateral pleural effusions - BNP elevated - Lasix 40MG IV BID - Strict I/Os Hypokalemia - Monitor and Replace as needed History of Essential Hypertension - Resume home BP meds when appropriate - Carvedilol 6.25MG PO BID History of Diabetes Mellitus Type-2, Uncontrolled - HGB A1c 8.0 - Blood sugar monitoring - Insulin SS History of Diabetic Neuropathy - Continue Gabapentin 1,200MG PO TID (verified) - Continue home Cymbalta History of Anxiety - Continue Seroquel 200MG PO bedtime Diet: Cardiac DVT ppx: Heparin gtt Pepcid FULL CODE Dispo: CABG today 11/09. Attestations Attestation needed: supervising physician Flynn Becerra 03/21/25 2019: Attestations Teaching Physician Attestation F/U visit w/o resident: I personally saw the patient and reviewed the resident's note. I agree with the resident's findings and plan. at 1653 at 2020 RPT #:[id number] END OF REPORT [facility] 2024-11-08 14:12:00 [id number] [place] [address] PATIENT NAME: YUNIER PRATT ADMIT DATE: 11/08/24 ACCOUNT NO: [id number] ROOM NO: [id number] AGE: 54 REPORT TYPE: eECHOCARDIOGRAM REPORT SEX: F ADMITTING PHYSICIAN:Angela Aceves DO ATTENDING PHYSICIAN:Flynn Becerra MD *[place] [address] Transthoracic Echocardiogram Patient: Yunier Pratt Study Date: 11/08/2024 BP: 150 / 77 URN: [id number] Location: : 1970 Age: 54 Gender: F Height: 66 in / 167.6 cm Weight: 160 lb / 72.6 kg BMI/BSA: 25.8 kg/m 2 / 1.85 m 2 *Ordering Physician: * Angela Aceves R3 *Interpreting Physician: * Nito Jacques *Bolt Maker: * Di Underwood Indications: CAD. Study data: Transthoracic echocardiogram. Procedure: A transthoracic echocardiogram was performed. Image quality was fair. Complete 2D, complete spectral Doppler, and color Doppler. Location: Bedside. Patient status: Inpatient. Patient room number: 6605. Study status: Routine. Heart rate: 83 bpm. Findings Left ventricle: The cavity size is normal. Wall thickness is mildly increased. Systolic function is normal. The estimated ejection fraction is 50-54%. Wall motion is normal; there are no regional wall motion abnormalities. Grade I diastolic dysfunction. PATIENT NAME: YUNIER PRATT Right ventricle: The cavity size is at the upper limits of normal. Systolic function is normal. Left atrium: The atrium is dilated. Right atrium: The atrium is normal in size. Aorta: Aortic root: The root is normal-sized. Aortic valve: The valve is structurally normal. The valve is trileaflet. There is no evidence of stenosis. There is no regurgitation. Mitral valve: The leaflets are mildly thickened and mildly calcified. There is no evidence of stenosis. There is mild regurgitation. Tricuspid valve: The valve is structurally normal. There is mild regurgitation. RVSP calculated 46.34mmHg. Pulmonic valve: The valve is structurally normal. There is mild regurgitation. Pericardium: There is no pericardial effusion. No evidence of pleural fluid accumulation. Pulmonary arteries: The main pulmonary artery is normal-sized. Systemic veins: Inferior vena cava: The IVC is normal-sized. Respirophasic diameter changes are in the normal range (>= 50%). Measurements Left ventricle Value Ref GLS, 2D -13 % --------- JUANI, LAX 4.1 cm 3.8 - 5.2 ESD, LAX 2.9 cm 2.2 - 3.5 FS, LAX 29 % 27 - 45 JUANI major ax, A2C 8.1 cm --------- ESD major ax, A2C 7.7 cm --------- IVS, ED 1.2 cm 0.6 - 0.9 PW, ED 1.6 cm 0.6 - 0.9 IVS/PW, ED 0.77 --------- EF 57 % 54 - 74 E', lat michelle, TDI 9.3 cm/sec >=10.0 E/e', lat michelle, TDI 15 <=13 E', med michelle, TDI 3.4 cm/sec >=7.0 E/e', med michelle, TDI 35 --------- E', avg, TDI 6.5 cm/sec --------- E/e', avg, TDI 21 <=14 LVOT Value Ref Diam, S 2.00 cm --------- Area 3.1 cm 2 --------- Peak mari, S 1.08 m/sec --------- Mean mari, S 0.69 m/sec --------- VTI, S 26.0 cm --------- Peak grad, S 5 mm Hg --------- Mean grad, S 2 mm Hg --------- SV 81 ml --------- SV/bsa 44 ml/m 2 --------- Right ventricle Value Ref PATIENT NAME: YUNIER PRATT JUANI, LAX 2.9 cm --------- TAPSE, MM 2.0 cm >=1.7 Pressure, S 43 mm Hg --------- Left atrium Value Ref AP dim, ES 4.3 cm 2.7 - 3.8 Vol/bsa, S 86 ml/m 2 16 - 34 Vol/bsa, ES, 1-p A4C 88 ml/m 2 11 - 40 Vol, ES, 2-p 159 ml --------- Vol/bsa, ES, 2-p 86 ml/m 2 16 - 34 Vol/bsa, ES, A/L 88 ml/m 2 16 - 34 Right atrium Value Ref Area, ES 11 cm 2 10 - 18 SI dim, ES, A4C 4.5 cm 3.4 - 5.3 Vol, ES, A/L 23 ml --------- Vol, ES, 1-p A4C 24 ml --------- Vol/bsa, ES, 1-p A4C 13 ml/m 2 9 - 33 Aortic valve Value Ref Peak v, S 1.6 m/sec --------- Mean v, S 1.14 m/sec --------- VTI, S 34.6 cm --------- Mean grad, S 6 mm Hg --------- Peak grad, S 10.2 mm Hg --------- LVOT/AV, VTI ratio 0.75 --------- BELEN, VTI 2.34 cm 2 --------- LVOT/AV, Vpeak ratio 0.68 --------- BELEN, Vmax 2.12 cm 2 --------- Mitral valve Value Ref Mean v, D 0.88 m/sec --------- Peak E 1.39 m/sec --------- Peak A 1.04 m/sec --------- VTI leaflet coapt 40.0 cm --------- MiV/LVOT VTI 1.5 --------- Decel time 230 ms --------- PHT 65 ms --------- Mean grad, D 4 mm Hg --------- Peak grad, D 10.2 mm Hg --------- Peak E/A ratio 1.33 --------- MVA, PHT 3.4 cm 2 --------- Pulmonic valve Value Ref CA peak v 1.35 m/sec --------- CA peak grad 7 mm Hg --------- Tricuspid valve Value Ref TR peak v 2.9 m/sec <=2.8 Peak RV-RA grad, S 33 mm Hg --------- Aortic root Value Ref Root diam 2.1 cm 2.6 - 4.0 PATIENT NAME: YUNIER PRATT Ascending aorta Value Ref AAo AP diam, S 3.1 cm --------- Pulmonary artery Value Ref Pressure, S 35.2 mm Hg --------- Systemic veins Value Ref Estimated CVP 10 mm Hg --------- Conclusions Summary: 1. Left ventricle: The cavity size is normal. Wall thickness is mildly increased. Systolic function is normal. The estimated ejection fraction is 50-54%. Wall motion is normal; there are no regional wall motion abnormalities. Grade I diastolic dysfunction. 2. Left atrium: The atrium is dilated. 3. Mitral valve: There is mild regurgitation. 4. Tricuspid valve: There is mild regurgitation. RVSP calculated 46.34mmHg. 5. Pulmonic valve: There is mild regurgitation. 6. Inferior vena cava: The IVC is normal-sized. Electronically signed by Nito Jacques 11/08/2024 14:11 at 1412 PATIENT NAME: YUNIER PRATT [facility] 2024-11-08 09:52:00 [facility] ([facility]) Hospitalist Progress Note REPORT#:[id number] REPORT STATUS: Signed REPORT INITIALIZATION DATE:11/08/24 TIME: 951 PATIENT: YUNIER PRATT UNIT #: [id number] ROOM/BED: [place] [address] : 72 AGE: 54 SEX: F ATTEND: Flynn Becerra MD ADM AUTHOR: David Bass MD R1 REPT SERVICE DT/TIME: 11/08/24951 * ALL edits or amendments must be made on the electronic/computer document * David Miles 11/08/24951: Subjective Chief complaint: Patient doing ok this morning. No complaints. Denies ches pain and SOB. On room air. On herapin drip. HPI: 54 yo F w PMHx of HTN, DM presented for evaluation of chest pain at [facility]. Patient was found to have NSTEMI on blood work. She underwent LHC which showed severe multivessel disease in LAD and RCA. Patient was transported to [facility] for evaluation of CABG. Currently denies chest pain, shortness of breath, nausea, headache, diaphoresis, numbness, tingling and weakness. Patient is a current everyday smoker of 1/2 pack per day. 20 year smoking history of 1-1.5 packs per day. Denied history of COPD or asthma. Review of Systems All systems rev neg: except as noted Objective General VS/I O: Vital Signs: Date Time Temp Pulse Resp B/P B/P Pulse O2 O2 Flow FiO2 Mean Ox Delivery Rate 11/08 912 97.9 79 16 155/79 104.2 98 11/08 0354 98.6 82 14 150/77 101.7 90 Room air 24 hour I O ending at 0700: 11/08 0700 11/07 1900 Intake Total Output Total Balance Patient 69.05 kg Weight Weight Standing scale Measurement Method PATIENT WEIGHT: Weight (lb): 152 Weight (oz): 3.67 Weight (kg): 69.050 Medications: Active Meds + DC'd Last 24 Hrs Atorvastatin Calcium (LIPITOR) 40 MG 2100 PO Albuterol Sulfate (ALBUTEROL SULFATE) 2.5 MG RTONCE ONE NEB (DC) Aspirin (ASPIRIN) 81 MG DAILY PO Duloxetine HCl (CYMBALTA) 20 MG DAILY PO Famotidine (PEPCID) 20 MG DAILY IV Furosemide (LASIX 40 mg/4 mL INJECTION) 40 MG BID IV Gabapentin (NEURONTIN) 300 MG TID PO Nicotine (NICODERM) 21 MG DAILY TRANSDERM (CKD) Carvedilol (COREG) 6.25 MG C BK DIN PO Insulin Human Lispro (Admelog) 0 AC HS SUBQ Potassium Chloride (POTASSIUM CHLORIDE 20MEQ TAB.ER) 40 MEQ Q2H PO (DC) Heparin Sodium (HEPARIN 5000 UNITS/ML) 5,000 UNIT ASDIR PRN PRN IV Heparin Sodium (HEPARIN 5000 UNITS/ML) 3,000 UNIT ASDIR PRN PRN IV Acetaminophen (TYLENOL) 650 MG Q4H PRN PRN PO Dextrose/Water (DEXTROSE 10% IN WATER) 125 ML ASDIR PRN IV (CKD) Dextrose/Water (DEXTROSE 10% IN WATER) 250 ML ASDIR PRN IV (CKD) Glucagon (GLUCAGON) 1 MG ASDIR PRN IM Heparin Sodium (HEPARIN 5000 UNITS/ML) 4,000 UNIT ONCE ONE IV (DC) Heparin Sodium (Porcine) (HEPARIN 25,000 UNITS/ 1/2NS 500ML) 500 ML ASDIR IV (CKD) Hydrocodone Bitart/Acetaminophen (NORCO 5/325) 1 TAB Q6H PRN PRN PO Morphine Sulfate (morphine SULFATE) 2 MG Q4H PRN PRN IV Ondansetron HCl (ZOFRAN) 4 MG Q4H PRN PRN IV Physical Exam General appearance: alert, awake, oriented Head/Eyes: atraumatic, normocephalic ENT: moist mucosal membranes, normal dentition Neck: full range of motion, supple/no meningismus Cardiovascular: normal heart sounds, regular rate rhythm, no murmur Respiratory: aerating well, clear to auscultation, symmetric expansion, no distress Abdomen: non-tender, soft, no distention, no guarding, no rebound Extremities: moves all, no edema 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, oriented X 3, CNII-XII intact, no motor deficits, no sensory deficits Skin: dry, intact, no rash Psychiatry: normal affect, normal mood Results Findings/Data: Laboratory Tests 11/08 11/08 11/08 11/08 0914 0652 0652 0353 Chemistry Sodium (134 - 147 mEq/L) 137 Potassium (3.4 - 5.0 mEq/L) 3.0 L Chloride (100 - 108 mEq/L) 107 Carbon Dioxide (21 - 33 mEq/l) 31 Anion Gap (0 - 20) 2 BUN (7 - 25 mg/dL) 9 Creatinine (0.6 - 1.3 mg/dL) 0.6 Glomerular Filtr Rate (90 - 95) 107.9 H Glucose (77 - 141 mg/dL) 205 H POC Glucose (70 - 110 MG/DL) 209 H 231 H Calcium (8.0 - 10.5 mg/dL) 8.6 Total Bilirubin (0.0 - 1.0 mg/dL) 0.50 AST (8 - 34 IUnit/L) 15 ALT (10 - 49 IUnit/L) 9 L Total Alk Phosphatase (20 - 125 IUnit/L) 99 Troponin I High Sens (0 - 34 ng/L) 1148 *H B-Natriuretic Peptide (0 - 100 PG/ML) 687.0 H Total Protein (5.7 - 8.2 g/dL) 6.4 Albumin (3.4 - 5.0 g/dL) 3.10 L Triglycerides (40 - 150 mg/dL) 85 Cholesterol (<200 mg/dL) 165 LDL Cholesterol Measurd (0 - 100 mg/dL) 112.0 H HDL Cholesterol (40 - 60 MG/DL) 44.6 Cholesterol/HDL Ratio (3.27 - 4.44 RATIO) 3.70 11/08 11/08 11/08 11/08 0330 0252 0252 0252 Chemistry Sodium (134 - 147 mEq/L) 137 Potassium (3.4 - 5.0 mEq/L) 3.1 L Chloride (100 - 108 mEq/L) 105 Carbon Dioxide (21 - 33 mEq/l) 30 Anion Gap (0 - 20) 5 BUN (7 - 25 mg/dL) 10 Creatinine (0.6 - 1.3 mg/dL) 0.7 Glomerular Filtr Rate (90 - 95) 104.0 H Glucose (77 - 141 mg/dL) 238 H Hemoglobin A1c (4.8 - 6.0 %A1C) 8.0 H Calcium (8.0 - 10.5 mg/dL) 8.7 Total Bilirubin (0.0 - 1.0 mg/dL) 0.50 Direct Bilirubin (0.1 - 0.3 MG/DL) 0.10 Indirect Bilirubin (MG/DL) 0.40 AST (8 - 34 IUnit/L) 18 ALT (10 - 49 IUnit/L) 10 Total Alk Phosphatase (20 - 125 IUnit/L) 98 Troponin I High Sens (0 - 34 ng/L) 1099 *H Total Protein (5.7 - 8.2 g/dL) 6.3 Albumin (3.4 - 5.0 g/dL) 3.10 L LDL Cholesterol Measurd (0 - 100 mg/dL) 108.0 H TSH (0.42 - 5.47 IU/mL) 2.39 Laboratory Tests 11/08 0251 Coagulation INR (0.8 - 1.2) 1.2 PTT (Ravalli) (25.0 - 39.5 Seconds) 27.5 PT Patient/Control Mix (9.3 - 12.9 SECONDS) 13.5 H Laboratory Tests 11/08 11/08 0652 0252 Hematology WBC (4.5 - 11.0 x10 3/uL) 6.8 6.8 RBC (3.54 - 5.02 x10 6/uL) 3.72 3.63 Hgb (11.0 - 15.0 g/dL) 9.0 L 9.1 L Hct (33.0 - 45.0 %) 28.6 L 28.6 L MCV (81.0 - 99.0 fL) 76.9 L 78.8 L MCH (27.0 - 33.0 pg) 24.2 L 25.1 L MCHC (33.0 - 37.0 g/dL) 31.5 L 31.8 L RDW (11.5 - 14.5 %) 16.1 H 16.2 H Plt Count (150 - 400 x10 3/uL) 163 159 MPV (7.0 - 9.0 fL) 10.5 H 10.4 H Neut % (Auto) (56.0 - 77.0 %) 72.4 70.9 Lymph % (Auto) (14.0 - 32.0 %) 17.5 21.0 Brule % (Auto) (4.8 - 9.0 %) 7.2 5.9 Eos % (Auto) (0.3 - 3.7 %) 2.2 1.6 Baso % (Auto) (0.0 - 2.0 %) 0.3 0.3 Neut # (Auto) (2.0 - 7.6 x10 3/uL) 4.95 4.79 Lymph # (Auto) (1.0 - 3.8 x10 3/uL) 1.20 1.42 Brule # (Auto) (0.1 - 0.8 x10 3/uL) 0.49 0.40 Eos # (Auto) (0.0 - 0.2 x10 3/uL) 0.15 0.11 Baso # (Auto) (0.0 - 0.2 x10 3/uL) 0.02 0.02 Abs Immat Gran (auto) (0.00 - 0.03 x10 3/uL) 0.03 0.02 Immature Gran % (0.0 - 2.0 %) 0.4 0.3 Nucleated RBC % (0 - 0 %) 0.0 0.0 Nucleated RBCs # (Man) (0.0 - 0.1 x10 3/uL) 0.00 0.00 Laboratory Tests 11/08 0757 Urines Urine Color (YEL/STRAW) YELLOW Urine Appearance (CLEAR) CLEAR Urine pH (5.0 - 7.0) 8.0 H Ur Specific [place] (1.005 - 1.030) 1.024 Urine Protein (NEGATIVE) NEGATIVE Urine Glucose (UA) (NEGATIVE) NEGATIVE Urine Ketones (NEGATIVE) NEGATIVE Urine Blood (NEGATIVE) NEGATIVE Urine Nitrite (NEGATIVE) NEGATIVE Urine Bilirubin (NEGATIVE) NEGATIVE Urine Urobilinogen (0.2 - 1.0 mg/dL) 4.0 H Ur Leukocyte Esterase (NEGATIVE) NEGATIVE Urine RBC (0 - 3 RBC/HPF) 0-3 Urine WBC (0 - 3 WBC/HPF) 0-3 Ur Squamous Epith Cells (NONE SEEN /HPF) 0-5 Urine Bacteria (NONE SEEN /HPF) NONE SEEN Radiology data: Recent Impressions: ULTRASOUND - US [facility] 11/08 8696 Report Impression - Status: SIGNED Entered: 11/08/2024 1109 IMPRESSION: 1. Venous mapping measurements noted above. 2. No evidence for venous thrombosis. Impression By: Janey Pulido M.D. ULTRASOUND - DUP EXTRACRANIAL CORNELL 11/08 0832 Report Impression - Status: SIGNED Entered: 11/08/2024 1105 IMPRESSION: Heavy plaque buildup primarily in the bulbs and internal carotid arteries on both sides. Impression By: Josefa - Emilio Mathew M.D. CAT SCAN - CT CHEST W/O CONTRAST 11/08 0949 Report Impression - Status: SIGNED Entered: 11/08/2024 1019 Impression: 1. There are moderate bilateral pleural effusions. There is moderate consolidation within the bilateral lower lobes. 2. Mildly prominent precarinal adenopathy measures 1.4 cm in short axis diameter. This may be reactive. This exam was performed according to our departmental dose-optimization program, which includes automated exposure control, adjustment of the mA and/or kV according to patient size and/or use of iterative reconstruction technique Impression By: [email or web address] - Remberto Pfeiffer M.D. Diagnosis, Assessment Plan Consultants: cardiology, cardiovascular surgery Free Text DxA P Notes Free text DxA P notes: 54 yo F w PMHx of HTN, DM presented for evaluation of SOB and chest pain at [facility]. Patient was found to have NSTEMI. 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 Patient was transported to [facility] for CABG evaluation. Assessment and Plan NSTEMI Multivessel Coronary Artery Disease - LHC done at [facility] - Cardiology and Cardiothoracic Surgery consulted - Troponin Trend 1099>1148>1298 - BNP 687 - Heparin gtt - Apirin 81MG daily + Atorvastatin 40MG daily - Monitor on Telemetry - Echocardiogram 11/08: LVEF 50-54%. No RWMA, Grade I DD. Dilated LA. RSVP 35-40 mmHg - CABG evaluation ongoing SOB likely secondary to Volume overload - CT chest showing Bilateral pleural effusions - BNP elevated - Lasix 40MG IV BID - Strict I/Os Hypokalemia - Monitor and Replace as needed History of Essential Hypertension - Resume home BP meds when appropriate - Carvedilol 6.25MG PO BID History of Diabetes Mellitus Type-2, Uncontrolled - HGB A1c 8.0 - Blood sugar monitoring - Insulin SS History of Diabetic Neuropathy - Gabapentin 600MG PO BID - Continue home Cymbalta Diet: Cardiac DVT ppx: Heparin gtt Pepcid FULL CODE Dispo: Pending CT surgery and Cardiology evaluation and recs. On heparin drip Attestations Attestation needed: supervising physician Flynn Becerra 11/08/241816: Attestations Teaching Physician Attestation F/U visit w/o resident: I personally saw the patient and reviewed the resident's note. I agree with the resident's findings and plan. at 1417 at 1820 RPT #:[id number] END OF REPORT [facility] 2024-11-08 09:19:00 [facility] ([facility] Cardiothoracic Surgery Consult REPORT#:[id number] REPORT STATUS: Signed REPORT INITIALIZATION DATE:11/08/24 TIME: 918 PATIENT: YUNIER PRATT UNIT #: [id number] ROOM/BED: [place] [address] : 72 AGE: 54 SEX: F ATTEND: Flynn Becerra MD ADM AUTHOR: Elise Harvey Physic REPT SERVICE DT/TIME: 11/08/24918 * ALL edits or amendments must be made on the electronic/computer document * History of Present Illness HPI Chief complaint: Coronary disease HPI: This is a 54-year-old female with a past medical history of hypertension, diabetes on insulin who presented to [facility] with complaints of chest pain. She was ruled in for NSTEMI on her blood work. 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 Patient was transferred to [facility] for further evaluation and workup of multivessel CAD. Patient denies any alcohol or drug use. He does report half pack a day smoking for the past 40 years. 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 History Additional Medical History: DM, HTN Smoking status for patients 13 years old or older: Current some day smoker Date last smoked: 11/07/24 Packs per day: 0.5 Pack years: 0 Allergies: Coded Allergies: No Known Allergies (11/08/24) Review of Systems Review of Systems ROS comments: Constitutional: Negative for fever, chills, weight loss Skin: Negative for rash, negative for swelling, negative for any laceration HEENT: Denies hearing loss, denies any ear ringing, denies any earache, denies any sore throat Respiratory: Denies dyspnea on exertion, denies hemoptysis denies any cough, denies any shortness of breath Cardiac: Denies chest pain, denies palpitations, denies orthopnea GI: Denies constipation, denies diarrhea : Denies hematuria, denies dysuria, denies flank pain Musculoskeletal: Denies any joint pain, denies any joint swelling, denies any myalgia Hematologic: Denies any easy bruising, denies any bleeding Endocrine: denies any night sweats, denies polyuria OR polydipsia Neurologic: Denies any lightheaded, denies any headache, denies any confusion, denies any dizziness Objective Physical Exam VS/I O: Last Documented: Result Date Time Pulse Ox 98 11/08 912 B/P 155/79 11/08 912 B/P Mean 104.2 11/08 09 Temp 97.9 11/08 912 Pulse 79 11/08 09 Resp 16 11/08 09 O2 Delivery Room air 11/08 0354 24 hour I O ending at 0700: 11/08 0700 11/07 1900 Intake Total Output Total Balance Patient 69.05 kg Weight Weight Standing scale Measurement Method PATIENT WEIGHT: Weight (lb): 152 Weight (oz): 3.67 Weight (kg): 69.050 General: well nourished, well groomed, no acute distress. HEENT: conjunctiva clear, extraocular movement intact, PERRLA, Neck: no, JVD, trachea midline, no, lymphadenopathy, neck supple, normal ROM. Respiratory: Clear to auscultation, no distress. Cardiovascular: regular rate and rhythm, S1, S2, normal, without murmurs, rubs or gallops, pulses, palpable, symetric. Abdomen: Soft, non tender. No rebound. No guarding Extremities: dry, moves all. Musculoskeletal: Full range of motion, no CVA tenderness, no muscle spasm Skin: warm, dry, no, lesions, rash. Neurologic: Alert and oriented x3. Psychiatric: affect and demeanor normal Diagnosis, Assessment Plan Free Text A P: This is a 54-year-old female with a past medical history of hypertension, diabetes on insulin who presented to [facility] with complaints of chest pain. She was ruled in for NSTEMI on her blood work. 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 Patient was transferred to [facility] for further evaluation and workup of multivessel CAD. Patient denies any alcohol or drug use. He does report half pack a day smoking for the past 40 years. 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 Assessment/plan 1. Hypertension 2. Diabetes on insulin 3. NSTEMI 4. Multivessel CAD Patient seen and examined. Patient will begin workup for consideration for coronary bypass graft surgery. Appropriate preoperative studies will be completed. Echocardiogram pending vein mapping pending Carotid Doppler pending Will obtain pulmonary function test due to patient's history of smoking Further recs to follow based on further clinical workup. at 0921 RPT #:[id number] END OF REPORT [facility] 2024-11-08 08:42:00 [facility] ([facility]) Cardiology Consultation REPORT#:[id number] REPORT STATUS: Signed REPORT INITIALIZATION DATE:11/08/24 TIME: 841 PATIENT: YUNIER PRATT UNIT #: [id number] ROOM/BED: [place] [address] : 72 AGE: 54 SEX: F ATTEND: Alejandro Bay MD ADM AUTHOR: Fay Fernandez AGACNP REPT SERVICE DT/TIME: 11/08/24 0842 * ALL edits or amendments must be made on the electronic/computer document * Fay Fernandez 11/08/24 0842: History of Present Illness HPI Requesting Clinician: Dr. Ross Reason for consult: NSTEMI/multivessel CAD Chief complaint: Shortness of breath and chest pain PCP: PCP: No Primary or Family Physician HPI: 54 YO patient with MH of HTN, DM, neuropathy, tobacco abuse who presented at [facility] with shortness of breath and chest pain. She was ruled for NSTEMI, had LHC which revealed multivessed CAD. She is transferred to [facility] for CABG evaluation. Hx Obtained From Patient History - Adult longitudinal Additional medical history: 1. DM 2. HTN 3. neuropathy Alcohol use: Denies EtOH use Drug use: Denies recreational drugs Smoking status for patients 13 years old or older: Current every day smoker Date last smoked: 11/07/24 Packs per day: 0.5 Pack years: 0 Home medications: Home Medications: DULoxetine DR (CYMBALTA) 20 MG PO DAILY FUROSEMIDE (LASIX) 40 MG IV BID GABAPENTIN (NEURONTIN) 300 MG PO TID NICOTINE (NICODERM 21 MG) 21 MG TRANSDERM DAILY Allergies: Coded Allergies: No Known Allergies (11/08/24) Ambulatory status: Independent Review of Systems Additional notes: As stated in HPI Objective General VS/I O: Vital Signs: Date Time Temp Pulse Resp B/P B/P Pulse O2 O2 Flow FiO2 Mean Ox Delivery Rate 11/08 0354 37.0 82 14 150/77 101.7 90 Room air 24 hour I O ending at 0700: 11/08 0700 11/07 1900 Intake Total Output Total Balance Patient 69.05 kg Weight Weight Standing scale Measurement Method PATIENT WEIGHT: Weight (lb): 152 Weight (oz): 3.67 Weight (kg): 69.050 Medications: Active Meds + DC'd Last 24 Hrs Atorvastatin Calcium (LIPITOR) 40 MG 2100 PO Aspirin (ASPIRIN) 81 MG DAILY PO Duloxetine HCl (CYMBALTA) 20 MG DAILY PO Famotidine (PEPCID) 20 MG DAILY IV Furosemide (LASIX 40 mg/4 mL INJECTION) 40 MG BID IV Gabapentin (NEURONTIN) 300 MG TID PO Nicotine (NICODERM) 21 MG DAILY TRANSDERM (CKD) Carvedilol (COREG) 6.25 MG C BK DIN PO Insulin Human Lispro (Admelog) 0 AC HS SUBQ Potassium Chloride (POTASSIUM CHLORIDE 20MEQ TAB.ER) 40 MEQ Q2H PO Heparin Sodium (HEPARIN 5000 UNITS/ML) 5,000 UNIT ASDIR PRN PRN IV Heparin Sodium (HEPARIN 5000 UNITS/ML) 3,000 UNIT ASDIR PRN PRN IV Acetaminophen (TYLENOL) 650 MG Q4H PRN PRN PO Dextrose/Water (DEXTROSE 10% IN WATER) 125 ML ASDIR PRN IV (CKD) Dextrose/Water (DEXTROSE 10% IN WATER) 250 ML ASDIR PRN IV (CKD) Glucagon (GLUCAGON) 1 MG ASDIR PRN IM Heparin Sodium (HEPARIN 5000 UNITS/ML) 4,000 UNIT ONCE ONE IV (DC) Heparin Sodium (Porcine) (HEPARIN 25,000 UNITS/ 1/2NS 500ML) 500 ML ASDIR IV (CKD) Hydrocodone Bitart/Acetaminophen (NORCO 5/325) 1 TAB Q6H PRN PRN PO Morphine Sulfate (morphine SULFATE) 2 MG Q4H PRN PRN IV Ondansetron HCl (ZOFRAN) 4 MG Q4H PRN PRN IV Physical Exam General appearance: alert, awake, oriented, no acute distress, no respiratory distress Neck: non-tender, no JVD Cardiovascular: CV assessment: regular rate and rhythm Respiratory: decreased breath sounds, shortness of breath, no distress Abdomen: soft, non-tender, normal bowel sounds, no distention Genitourinary: no flank pain, no urinary catheter Lower extremity: LE assessment: no calf tenderness, no edema Musculoskeletal: normal inspection 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, oriented X 3, normal speech Skin: dry, intact, normal color Psychiatry: normal affect, normal judgment/insight, normal mood Results Findings/Data: Laboratory Tests 11/08 11/08 11/08 11/08 0652 0652 0353 0330 Chemistry Sodium (134 - 147 mEq/L) 137 Potassium (3.4 - 5.0 mEq/L) 3.0 L Chloride (100 - 108 mEq/L) 107 Carbon Dioxide (21 - 33 mEq/l) 31 Anion Gap (0 - 20) 2 BUN (7 - 25 mg/dL) 9 Creatinine (0.6 - 1.3 mg/dL) 0.6 Glomerular Filtr Rate (90 - 95) 107.9 H Glucose (77 - 141 mg/dL) 205 H POC Glucose (70 - 110 MG/DL) 231 H Calcium (8.0 - 10.5 mg/dL) 8.6 Total Bilirubin (0.0 - 1.0 mg/dL) 0.50 AST (8 - 34 IUnit/L) 15 ALT (10 - 49 IUnit/L) 9 L Total Alk Phosphatase (20 - 125 IUnit/L) 99 Troponin I High Sens (0 - 34 ng/L) 1148 *H B-Natriuretic Peptide (0 - 100 PG/ML) 687.0 H Total Protein (5.7 - 8.2 g/dL) 6.4 Albumin (3.4 - 5.0 g/dL) 3.10 L Triglycerides (40 - 150 mg/dL) 85 Cholesterol (<200 mg/dL) 165 LDL Cholesterol Measurd (0 - 100 mg/dL) 112.0 H 108.0 H HDL Cholesterol (40 - 60 MG/DL) 44.6 Cholesterol/HDL Ratio (3.27 - 4.44 RATIO) 3.70 11/08 11/08 11/08 0252 0252 0252 Chemistry Sodium (134 - 147 mEq/L) 137 Potassium (3.4 - 5.0 mEq/L) 3.1 L Chloride (100 - 108 mEq/L) 105 Carbon Dioxide (21 - 33 mEq/l) 30 Anion Gap (0 - 20) 5 BUN (7 - 25 mg/dL) 10 Creatinine (0.6 - 1.3 mg/dL) 0.7 Glomerular Filtr Rate (90 - 95) 104.0 H Glucose (77 - 141 mg/dL) 238 H Hemoglobin A1c (4.8 - 6.0 %A1C) 8.0 H Calcium (8.0 - 10.5 mg/dL) 8.7 Total Bilirubin (0.0 - 1.0 mg/dL) 0.50 Direct Bilirubin (0.1 - 0.3 MG/DL) 0.10 Indirect Bilirubin (MG/DL) 0.40 AST (8 - 34 IUnit/L) 18 ALT (10 - 49 IUnit/L) 10 Total Alk Phosphatase (20 - 125 IUnit/L) 98 Troponin I High Sens (0 - 34 ng/L) 1099 *H Total Protein (5.7 - 8.2 g/dL) 6.3 Albumin (3.4 - 5.0 g/dL) 3.10 L TSH (0.42 - 5.47 IU/mL) 2.39 Laboratory Tests 11/08 0251 Coagulation INR (0.8 - 1.2) 1.2 PTT (Ravalli) (25.0 - 39.5 Seconds) 27.5 PT Patient/Control Mix (9.3 - 12.9 SECONDS) 13.5 H Laboratory Tests 11/08 11/08 0652 0252 Hematology WBC (4.5 - 11.0 x10 3/uL) 6.8 6.8 RBC (3.54 - 5.02 x10 6/uL) 3.72 3.63 Hgb (11.0 - 15.0 g/dL) 9.0 L 9.1 L Hct (33.0 - 45.0 %) 28.6 L 28.6 L MCV (81.0 - 99.0 fL) 76.9 L 78.8 L MCH (27.0 - 33.0 pg) 24.2 L 25.1 L MCHC (33.0 - 37.0 g/dL) 31.5 L 31.8 L RDW (11.5 - 14.5 %) 16.1 H 16.2 H Plt Count (150 - 400 x10 3/uL) 163 159 MPV (7.0 - 9.0 fL) 10.5 H 10.4 H Neut % (Auto) (56.0 - 77.0 %) 72.4 70.9 Lymph % (Auto) (14.0 - 32.0 %) 17.5 21.0 Brule % (Auto) (4.8 - 9.0 %) 7.2 5.9 Eos % (Auto) (0.3 - 3.7 %) 2.2 1.6 Baso % (Auto) (0.0 - 2.0 %) 0.3 0.3 Neut # (Auto) (2.0 - 7.6 x10 3/uL) 4.95 4.79 Lymph # (Auto) (1.0 - 3.8 x10 3/uL) 1.20 1.42 Brule # (Auto) (0.1 - 0.8 x10 3/uL) 0.49 0.40 Eos # (Auto) (0.0 - 0.2 x10 3/uL) 0.15 0.11 Baso # (Auto) (0.0 - 0.2 x10 3/uL) 0.02 0.02 Abs Immat Gran (auto) (0.00 - 0.03 x10 3/uL) 0.03 0.02 Immature Gran % (0.0 - 2.0 %) 0.4 0.3 Nucleated RBC % (0 - 0 %) 0.0 0.0 Nucleated RBCs # (Man) (0.0 - 0.1 x10 3/uL) 0.00 0.00 Laboratory Tests 11/08 0757 Urines Urine Color (YEL/STRAW) YELLOW Urine Appearance (CLEAR) CLEAR Urine pH (5.0 - 7.0) 8.0 H Ur Specific [place] (1.005 - 1.030) 1.024 Urine Protein (NEGATIVE) NEGATIVE Urine Glucose (UA) (NEGATIVE) NEGATIVE Urine Ketones (NEGATIVE) NEGATIVE Urine Blood (NEGATIVE) NEGATIVE Urine Nitrite (NEGATIVE) NEGATIVE Urine Bilirubin (NEGATIVE) NEGATIVE Urine Urobilinogen (0.2 - 1.0 mg/dL) 4.0 H Ur Leukocyte Esterase (NEGATIVE) NEGATIVE Urine RBC (0 - 3 RBC/HPF) 0-3 Urine WBC (0 - 3 WBC/HPF) 0-3 Ur Squamous Epith Cells (NONE SEEN /HPF) 0-5 Urine Bacteria (NONE SEEN /HPF) NONE SEEN Laboratory Tests 11/08 11/08 11/08 0652 0652 0252 Chemistry Troponin I High Sens (0 - 34 ng/L) 1148 *H 1099 *H B-Natriuretic Peptide (0 - 100 PG/ML) 687.0 H Radiology Data: Recent Impressions: ULTRASOUND - US [facility] 11/08 08 Report Impression - Status: SIGNED Entered: 11/08/2024 1108 IMPRESSION: 1. Venous mapping measurements noted above. 2. No evidence for venous thrombosis. Impression By: Janey Pulido M.D. ULTRASOUND - DUP EXTRACRANIAL CORNELL 11/08 0832 Report Impression - Status: SIGNED Entered: 11/08/2024 1105 IMPRESSION: Heavy plaque buildup primarily in the bulbs and internal carotid arteries on both sides. Impression By: Josefa Mathew M.D. CAT SCAN - CT CHEST W/O CONTRAST 11/08 0949 Report Impression - Status: SIGNED Entered: 11/08/2024 1019 Impression: 1. There are moderate bilateral pleural effusions. There is moderate consolidation within the bilateral lower lobes. 2. Mildly prominent precarinal adenopathy measures 1.4 cm in short axis diameter. This may be reactive. This exam was performed according to our departmental dose-optimization program, which includes automated exposure control, adjustment of the mA and/or kV according to patient size and/or use of iterative reconstruction technique Impression By: Derrick RamirezD. RADIOLOGY - XR CHEST 1 V 11/08 0957 Report Impression - Status: SIGNED Entered: 11/08/2024 9214 IMPRESSION: Bilateral pleural effusions and bilateral lower lobe consolidative changes, similar to the CT performed the same day Impression By: [email or web address] - Samara Gordon M.D. Results: labs reviewed, vital signs reviewed, rhythm personally rev'd Diagnosis, Assessment Plan Plan discussed with: patient, family, collaborating MD, nurse Free Text DxA P Notes Free Text DxA P Notes: 54 YO patient with MH of HTN, DM, neuropathy, tobacco abuse who presented at [facility] with shortness of breath and chest pain. She was ruled for NSTEMI, had LHC which revealed multivessed CAD. She is transferred to [facility] for CABG evaluation. 1. NSTEMI/Multivessel CAD * Echo LVEF 50-54%, G1DD, mild MR * Heparin gtt, ASA, BB, statin * CABG scheduled for tomorrow 2. Hypertension * BP elevated * on carvedilol 6.25 mg BID * IV hydralazine as needed 3. Diabetes mellitus * A1c 8 * manage per CTS 4. Acute Diastolic CHF, present to admission * LVEF 50-54% * CXR showed bilateral pleural effusion * on IV lasix 40 mg BID Appreciate the referral. Medical decision making by Dr. Lindquist. Sharon Lindquist 11/10/24 1014: Attestations Physician Attestation Agree w/findings plan: I have seen and examined the pt, I Agree with the findings and plan as documented by Fya Fernandez. at 1937 at 1015 RPT #:[id number] END OF REPORT [facility] 2024-11-08 06:35:00 [id number] [address] PATIENT NAME: YUNIER PRATT ADMIT DATE: 11/08/24 ACCOUNT NO: [id number] [place]OM NO: [facility] [place] AGE: 54 REPORT TYPE: eELECTROCARDIOGRAM REPORT SEX: F ADMITTING PHYSICIAN:Angela Aceves DO ATTENDING PHYSICIAN:Flynn Becerra MD Order: [id number] Test Reason : NSTEMI Test Date/Time Stamp: TueNov 08 2024 06:35:27 Blood Pressure : / mmHG Vent. Rate : 081 BPM Atrial Rate : 081 BPM P-R Int : 140 ms QRS Dur : 100 ms QT Int : 420 ms P-R-T Axes : 049 107 -40 degrees QTc Int : 487 ms Sinus rhythm with premature atrial complexes Rightward axis Possible Anterior infarct , age undetermined Marked ST abnormality, possible inferior subendocardial injury Abnormal ECG No previous ECGs available Confirmed by NITO JACQUES ([id number]) on 11/08/2024 7:43:26 AM Referred By: Self Referred Confirmed by:NITO JACQUES at 0743 PATIENT NAME: YUNIER PRATT [facility] 2024-[facility]-08 02:23:00 [facility] REPORT#:[id number] REPORT STATUS: Signed REPORT INITIALIZATION DATE:11/08/24 TIME: 222 PATIENT: YUNIER PRATT UNIT #: [id number] [place]OM[place]ED: [facility] [place] : 74 AGE: 54 SEX: F ATTEND: Angela Aceves DO ADM AUTHOR: Angela Aceves DO REPT SERVICE DT/TIME: 11/08/24222 * ALL edits or amendments must be made on the electronic/computer document * History of Present Illness HPI Chief complaint: chest pain PCP: PCP: No Primary or Family Physician HPI: 54 yo F w PMHx of HTN, DM presented for evaluation of chest pain at [facility]. Patient was found to have NSTEMI on blood work. She underwent LHC which showed severe multivessel disease in LAD and RCA. Patient was transported to [facility] for evaluation of CABG. Currently denies chest pain, shortness of breath, nausea, headache, diaphoresis, numbness, tingling and weakness. History Additional medical history: DM, HTN Medication/Allergy-Vaccine Hx Allergies: Coded Allergies: No Known Allergies (11/08/24) Review of Systems Constitutional: Denies: chills, fever. Skin: Denies: laceration, swelling. Allergy/Immun: Denies: allergic reaction, anaphylaxis. Eyes: Denies: redness, discharge. ENT: Denies: throat swelling, tongue swelling. Respiratory: Denies: HARTMAN (dyspnea on exertion), SOB. Cardiovascular: chest pain. Denies: edema. GI: Denies: abdominal pain, nausea, vomiting. : Denies: dysuria, flank pain. Musculoskeletal: Denies: extremity pain, extremity swelling. Neuro: Denies: confusion, dizziness. All systems rev neg: except as marked Objective General VS/I O: PATIENT WEIGHT: Weight (lb): Weight (oz): Weight (kg): Physical Exam General appearance: alert, awake, oriented, no acute distress, no respiratory distress Head/Eyes: atraumatic, normocephalic ENT: moist mucosal membranes, normal dentition Neck: full range of motion, supple/no meningismus Cardiovascular: normal heart sounds, regular rate rhythm, no murmur Respiratory: aerating well, clear to auscultation, symmetric expansion, no distress Abdomen: non-tender, soft, no distention, no guarding, no rebound Extremities: moves all, no edema 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, oriented X 3, CNII-XII intact, no motor deficits, no sensory deficits Skin: dry, intact, no rash Psychiatry: normal affect, normal mood Diagnosis, Assessment Plan Free Text DxA P Notes Free Text DxA P Notes: Assessment and Plan Acute NSTEMI Multivessel Coronary Artery Disease Essential Hypertension Cardiology and Cardiothoracic Surgery consulted Heparin gtt Hold BB and ACEi for blood pressure measurement Monitor on Telemetry Echocardiogram Diabetes Mellitus HGB A1c Insulin SS Cardiac Diet Heparin gtt Pepcid FULL CODE at 0722 RPT #:[id number] END OF REPORT [facility] 2018-06-26 15:39:[address] [address] Patient Name: YUNIER PRATT Patient#: [id number] Admission Date: 06/23/2018 Date of : 1970 Age/Gender: 47/F SV//BED: TEL/5202/A Admitting Phys: Leonor Eubanks, DO PROGRESS NOTE DATE: 06/26/2018 SUBJECTIVE Ms. Pratt is a very pleasant 47-year-old female, seen as a followup today for anemia and thrombocytopenia, found to be iron deficient. Current hemoglobin is stable at 10.8 g. Most recent platelet count was decreased but stable at 131,000 as of June 24. She did have an EGD and colonoscopy performed by Dr. Ndiaye, and [facility] yesterday, the results of which are unavailable at this time. She did have a serum iron of 28 and a percent saturation of only 5%, and she was given a one-time dose of intravenous iron infusion with 200 mg of Venofer on June 25. Patient is completely asymptomatic at this time. REVIEW OF SYSTEMS Negative other than what is mentioned above. ALLERGIES NO KNOWN DRUG ALLERGIES. CURRENT MEDICATIONS Reviewed. PHYSICAL EXAMINATION HEENT: Atraumatic, normocephalic, PERRLA, nares patent, mucosa and tongue moist. NECK: Supple. Negative JVD. Negative carotid bruit. LUNGS: Clear to auscultation. Negative gallop, wheezes or rub. CVS: Regular rate and rhythm. Negative gallop, clicks or murmurs. Normal pulses. ABDOMEN: Soft, positive bowel sounds, nontender. No evidence of ascites or organomegaly. EXTREMITIES: Negative cyanosis, clubbing or edema. NEUROLOGICALLY: Power 5/5. Reflexes symmetrical. Cranial nerves intact, no sensory deficits noted. SKIN: Warm with no evidence of any decubitus or skin rash. MUSCULOSKELETAL: No evidence of any arthritis or joint swelling. LABORATORY DATA Reviewed. ASSESSMENT AND PLAN 1. Iron deficiency anemia, likely secondary to occult gastrointestinal bleeding. She did have an EGD, colonoscopy, and Pill[facility], the results of which will be obtained and reviewed. Iron was down to 28, with a percent saturation of only 5%. Hemoglobin on admission was 5.1 g, with a platelet count of 137,000. She was given 200 mg of Venofer IV on June 25, which we will plan on continuing outpatient. We will also take this opportunity to initiate a complete workup for anemia, to rule out any other underlying etiologies. B12 and folate were within normal limits, and hemoglobin is currently low but stable at 10.8 g. 2. Thrombocytopenia with most recent platelet count being 131,000: Will initiate a workup for thrombocytopenia, including an ultrasound of her abdomen to rule out splenomegaly. If workup is unrevealing, she will need a bone marrow aspiration and biopsy with flow study and cytogenetic analysis, which would be performed outpatient. 3. History of alcoholism: Discontinued smoking and alcohol approximately 15 months prior. She lives in a [facility] house presently. She has never been diagnosed with any cirrhosis of her liver, to her knowledge. Electronically Signed By: ALLISON GONZÁLES 2018-06-26 17:00:30 Patient was seen and physically examined, and assessment and plan were formulated in collaboration with Dr. Collado. DICTATED BY: KURTIS De La Paz MD TT: 06/26/2018 15:39:43 /MODL /[id number] Electronically Signed By: ALLISON GONZÁLES 2018-06-26 17:00:30 [facility] 2018-06-23 22:14:42 [place] [address] Patient Name: YUNIER PRATT Patient#: [id number] Admission Date: 06/23/2018 Date of : 1970 Age/Gender: 47/F HSSV/RM/BED: TEL/[facility]/A Admitting Phys: Dana Perales MD CONSULTATION NOTE DATE OF CONSULTATION: 06/23/2018 ATTENDING PHYSICIAN: Dana Perales MD REFERRING PHYSICIAN: Dana Perales MD REASON FOR EVALUATION Profound iron deficiency anemia. HISTORY OF PRESENT ILLNESS Ms Pratt is 47-year-old reformed alcoholic who presents with weakness and was found to have a hemoglobin of less than 6 g. She states she does note that her stools have been dark in color, but was not aware that this was blood. She was an alcoholic, she states, but was never told she had any cirrhosis of her liver and denies known history of any GI bleed in the past. She does take ibuprofen, at least 2 daily on a regular basis. SOCIAL HISTORY She discontinued smoking and alcohol use approximately 15 months ago. She lives in a [facility] house presently. HOME MEDICATIONS Include Humulin insulin, Novolin insulin, metformin, and gabapentin. ALLERGIES NO KNOWN DRUG ALLERGIES. PAST MEDICAL HISTORY Includes diabetes mellitus, peripheral neuropathy. PAST SURGICAL HISTORY Includes right lower extremity surgery with a metal katarzyna, right shoulder surgery, bilateral hand surgery. FAMILY HISTORY Negative for colon cancer. REVIEW OF SYSTEMS GENERAL: Patient describes increasing fatigue and weakness. No associated weight loss. HEENT: No diplopia, otitis, or pharyngitis. RESPIRATORY: Dyspnea on exertion. No cough. CARDIOVASCULAR: No chest pain or palpitations. She has had progressive weakness with exertion. GASTROINTESTINAL: See present illness. GENITOURINARY: No dysuria. She has some mild nocturia. MUSCULOSKELETAL: Chronic back pain, chronic lower extremity pain. NEUROLOGIC: No seizure, syncope, or stroke. PHYSICAL EXAMINATION VITAL SIGNS: Blood pressure is 101/67, pulse 87, respirations 16, temperature Legally authenticated by MARLA DAVIDSON 2018-06-25 09:23:50 is 98.6. GENERAL: Patient is an alert female, pale in appearance with some coarse features worrisome for hypothyroidism. NECK: Supple. CHEST: Decreased breath sounds in lung base, otherwise clear. CARDIAC: Soft systolic murmur. Regular rhythm. ABDOMEN: Obese, soft. No significant tenderness. No hepatosplenomegaly is appreciated. EXTREMITIES: Trace pretibial edema. NEUROLOGIC: Unremarkable. LABORATORY STUDIES Hemoglobin 5.1, MCV is 74, RBC is 2.43 million, white count 6100, platelet count 137,000. BUN and creatinine are normal. Glucose 150. IMPRESSION 1. Profound microcytic anemia. a. Colonic etiology. b. Chronic ulcer with bleeding. c. Varices. d. Other. 2. History of alcoholism. 3. Diabetes mellitus. RECOMMENDATIONS Will obtain a TSH to rule out superimposed hypothyroidism. Will transfuse slowly, and give patient some Lasix in view of the chronic anemia that she obviously has. Patient will be tentatively scheduled for a colon and EGD for tomorrow with further recommendations to follow. Thank you very much for this referral. Jose Manuel Ndiaye Jr, MD TT: 06/23/2018 22:14:42 [facility]/NIESHA /[id number] cc: Dana Perales MD Electronically Authenticated by: Jose Manuel Ndiaye Jr., MD On 06/25/2018 09:23 AM CONVEYOR OPERATOR Legally authenticated by MARLA DAVIDSON 2018-06-25 09:23:50 JOSE MANUEL NDIAYE
[2024-11-24 08:37] LABS: Absolute Eosinophils 0.2 K/uL (0-0.5); Absolute Lymphocytes (CBC) 0.7 K/uL (0.7-4.9); Absolute Monocytes 0.6 K/uL (0.1-1.3); Absolute Neutrophil 6.7 K/uL (1.8-8.0); Basophils % 0.2 % (0-1.3); Eosinophils % 2.6 % (0-4.4); Hematocrit 26.2 % (36.0-45.0); Hemoglobin 8.5 g/dL (12.0-15.0); MCHC 32.6 g/dL (32.0-36.0); MCV 79.7 fL (80-100); MPV 10.3 fL (7.6-11.3); Monocytes % 7.9 % (3.3-12.3); Neutrophils % 81.3 % (41.7-73.7); Nucleated Red Blood Cells % 0.1 % (0-0); Platelets 239 thou/uL (152-406); RBC Red Blood Cell Count 3.28 M/uL (3.86-4.86); Red Cell Distribution Width 20.7 % (12.1-15.2)
--- NOTE | 2024-11-24 08:57 | RAD REPORT ---
EXAMINATION: CT CHEST WITHOUT CONTRAST CLINICAL INDICATION: CABG 2 weeks ago now SOB;Dyspnea TECHNIQUE: Routine CT scan of the chest without intravenous contrast. One or more of the following do se reduction techniques were used: Automated exposure control, adjustment of the mA and/or kV according to patient size, and/or iterative reconstruction. Unless otherwise specified, incidental fi ndings do not require dedicated imaging follow-up. COMPARISON: No prior exam. FINDINGS: LOWER NECK: Visualized thyroid gland and soft tissues are normal. LUNGS: There is mild atelectasis in both posterior lung bases. PLEURA: Small left and moderate right pleural effusion. MEDIASTINUM AND LYMPH NODES: Postsurgical changes are present about the mediastinum. Small focal brittany ection of air and fluid is seen prevascular space measuring 3.8 x 2.5 cm. Sterility is indeterminant. OSSEOUS STRUCTURES AND CHEST WALL: Sternotomy wiring noted. UPPER ABDOMEN: No significant abnormalities. IMPRESSION: Moderate bilateral pleural effusions, greater on the right with atelectasis in both lung bases. Postsurgical changes of recent CABG. Small fluid and air collection prevascular space measuring 38 x 25 mm noted presumably postoperative, sterility indeterminate. Examination limited by lack of IV contrast.
[2024-11-24 09:22] LABS: PT Prothrombin Time 15.2 SECONDS (10-13.0); Protime INR 1.35
[2024-11-24 09:39] LABS: Albumin 2.3 g/dL (3.4-5.0); Albumin/Globulin Ratio 0.5 (1.1-1.8); Anion Gap 10.8 mEq/L (5.0-15.0); Bilirubin Direct 0.2 mg/dL (0-0.2); Bilirubin Indirect, Calculated 0.2 mg/dL (0.2-0.8); Bilirubin Total 0.4 mg/dL (0.2-1.0); Globulin 4.2 g/dL (2.3-3.5); Magnesium 2.1 mg/dL (1.6-2.4); Potassium 4.8 mEq/L (3.5-5.1); Protein, Total 6.5 g/dL (6.4-8.2)
[2024-11-24 09:40] LABS: White Blood Cell Scan OK (OK)
[2024-11-24 09:41] LABS: Anisocytosis 1+; Blood Morphology Comment NOTED (NOT SEEN); Microcytosis 1+; Platelet Estimate ADEQ
[2024-11-24 09:43] LABS: Troponin High Sensitivity 530.5 pg/mL (<58.9)
--- NOTE | 2024-11-24 09:48 | ER ---
Nurse's Notes [facility] Name: Cira Warren Age: 54 yrs Sex: Female : 1970 Arrival Date: 11/24/2024 Time: 08:05 Bed 4 Private MD: Diagnosis: Dyspnea, pleural effusion bilaterally, elevated troponin from recent CABG Presentation: 11/24 08:09 Chief complaint: EMS states: Pt c/o SOB, had bypass sx approx 1 month ago, also c/o ph chest pain upon arrival to ED, pt states she feels bloated, hypotensive for EMS, took lasix this morning but did not take other home meds. Coronavirus screen: Vaccine status: Patient reports being unvaccinated. Ebola Screen: No symptoms or risks identified at this time. Initial Sepsis Screen: Does the patient meet any 2 criteria? No. Patient's initial sepsis screen is negative. Does the patient have a suspected source of infection? No. Patient's initial sepsis screen is negative. Risk Assessment: Do you want to hurt yourself or someone else? Patient reports no desire to harm self or others. Onset of symptoms was November 24, 2024. 08:09 Method Of Arrival: EMS: [facility] 08:09 Acuity: SWETHA 2 ph Triage Assessment: 08:13 General: Appears in no apparent distress. comfortable, well groomed, Behavior is calm, ph cooperative, appropriate for age. Pain: Complains of pain in chest, resolved at this time. Neuro: Level of Consciousness is awake, alert, obeys commands, Oriented to person, place, time, situation. Cardiovascular: Reports shortness of breath, Rhythm is sinus bradycardia. Respiratory: Reports shortness of breath Airway is patent Respiratory effort is even, unlabored, Respiratory pattern is regular, symmetrical, Onset: The symptoms/episode began/occurred this morning, the patient has mild shortness of breath. GI: Abdomen is round Reports bloating, Patient currently denies abdominal pain. Derm: Skin is pale. Musculoskeletal: Range of motion: intact in all extremities. Historical: - Allergies: 08:13 No Known Allergies; ph - Home Meds: 08:20 furosemide 40 mg Oral tablet 1 tab daily [Active]; ferrous sulfate 325 mg (65 mg iron) ph Oral tablet daily [Active]; pantoprazole 40 mg oral tablet, delayed release (enteric coated) 1 tab every morning [Active]; quetiapine 100 mg oral tablet 2 tabs daily [Active]; clopidogrel 75 mg oral tablet 1 tab daily [Active]; amiodarone 200 mg Oral tablet 1 tab daily [Active]; aspirin 81 mg Oral tablet,chewable 1 tab daily [Active]; atorvastatin 40 mg oral tablet 1 tab daily [Active]; metoprolol tartrate 25 mg Oral tablet 0.5 tab every 12 hours [Active]; fluticasone propionate 50 mcg/actuation intranasal spray, suspension [Active]; - PMHx: 08:13 diabetes mellitus; Hyperlipidemia; neuropathy; ph - PSHx: 08:13 Appendectomy; cardiac stents x 5 (Appendectomy); ph - Immunization history:: Adult Immunizations unknown. - Infectious Disease History:: Denies. - Social history:: Smoking status: Reported history of juuling and/or vaping. Screenin:15 [facility] ED Fall Risk Assessment (Adult) History of falling in the last 3 months, ph including since admission No falls in past 3 months (0 pts) Confusion or Disorientation No (0 pts) Intoxicated or Sedated No (0 pts) Impaired Gait No (0 pts) Mobility Assist Device Used No (0 pt) Altered Elimination No (0 pt) Score/Fall Risk Level 0 - 2 = Low Risk Oriented to surroundings, Maintained a safe environment, Hourly rounding (assess needs \T\ fall precautionary measures) done. Abuse screen: Denies threats or abuse. Denies injuries from another. Nutritional screening: No deficits noted. Tuberculosis screening: No symptoms or risk factors identified. Assessment: 08:28 General: SEE TRIAGE ASSESSMENT. ph 09:32 Reassessment: Patient appears in no apparent distress at this time. No changes from hb previously documented assessment. 09:37 Reassessment: Patient appears in no apparent distress at this time. Patient and/or ph family updated on plan of care and expected duration. Pain level reassessed. Patient is alert, oriented x 3, equal unlabored respirations, skin warm/dry/pink. 10:24 Reassessment: Patient appears in no apparent distress at this time. No changes from ph previously documented assessment. Report called to Valentin at [facility] ED, awaiting EMS for transport. Vital Signs: 08:09 BP 83 / 62; Pulse 55; Resp 18; Pulse Ox 96% on R/A; Weight 75.75 kg; Height 5 ft. 6 in. ph ; 08:20 Temp 97.5; ph 08:32 BP 94 / 57; Pulse 55; Resp 18; Pulse Ox 95% on R/A; ph 09:40 BP 105 / 65; Pulse 57; Resp 18; Pulse Ox 98% on R/A; ph 10:31 BP 119 / 63; Pulse 62; Resp 18; Pulse Ox 99% on R/A; ph 08:09 Body Mass Index 26.95 (75.75 kg, 167.64 cm) ph Vitals: 09:41 Cardiac Rhythm Assessment Sinus contreras. ph ED Course: 08:06 Patient arrived in ED. sp3 08:07 Lupis Wheat MD is Attending Physician. sp3 08:08 Brittanie Weldon RN is Primary Nurse. ph 08:13 Triage completed. ph 08:15 EKG done, by ED staff, reviewed by Lupis Wheat MD. em1 08:15 Arm band placed on Patient placed in an exam room, on a stretcher, on cardiac cath rn, ph on pulse oximetry. 08:16 Patient has correct armband on for positive identification. Bed in low position. Call ph light in reach. Side rails up X 1. compliance monitor on. Pulse ox on. NIBP on. Door closed. Noise minimized. Warm blanket given. 08:27 Accessed peripheral vein via ultrasound, utilizing dynamic ultrasound technique using hb per hospital protocol. Clean \T\ dry. Dressing intact. Good blood return. Flushes easily. 20g RFA. 08:28 Basic Metabolic Panel Sent. ph 08:28 CBC with Diff Sent. ph 08:28 LFT's Sent. ph 08:28 Magnesium Sent. ph 08:28 NT PRO-BNP Sent. ph 08:28 PT-INR Sent. ph 08:28 Troponin HS Sent. ph 08:44 CT Chest Wo Con In Process Unspecified. EDMS 09:54 initiated a transfer with Jessica from the [facility] transfer center. eb 10:06 administrative approval given by Jessica Donald Rn/ patient has been auto accepted to [facility] ED/ Dr. Daisy Hernadez has accepted the patient in transfer/ report to be called to the ED at [phone]. 10:30 No provider procedures requiring assistance completed. Patient transferred, IV remains ph in place. Administered Medications: 10:30 Drug: morphine IVP or IV 2 mg IVP once over 4 mins Route: IVP; Infused Over: 4 mins; ph Site: right forearm; 10:56 Follow up: Response: No adverse reaction; Pain is decreased ph 10:30 Drug: Ondansetron IVP 4 mg IVP once; over 2 minutes Route: IVP; Site: right forearm; ph 10:56 Follow up: Response: No adverse reaction ph Medication: 08:15 VIS not applicable for this client. ph Outcome: 09:47 ER care complete, transfer ordered by MD. laura 10:55 Transferred by [facility]. Transfer form completed. X-rays sent w/ ph patient. Note: Transferred to [facility] 10:55 Condition: stable 10:55 Instructed on the need for transfer, 10:56 Patient left the ED. ph Signatures: Dispatcher [employer] Abiodun Branham em1 Brittanie Weldon RN RN Brittnee Will RN RN hb Botello, Elizabeth eb Patel, Setul, MD MD sp3
--- NOTE | 2024-11-24 09:48 | EDPHYS ---
Physician Documentation [facility] Name: Cira Warren Age: 54 yrs Sex: Female : 1970 Arrival Date: 11/24/2024 Time: 08:05 Bed 4 Private MD: ED Physician Lupis Wheat HPI: 11/24 08:10 This 54 yrs old Female presents to ER via Unassigned with complaints of Shortness Of sp3 Breath. 08:10 54-year-old female presents with shortness of breath for the last 2-3 days. She is sp3 status post CABG 2 weeks ago at [facility] after having catheterization here demonstrating multivessel disease. She is currently on aspirin, Plavix and multitude of other medications. She denies any chest pain, back pain, headache, syncope, abdominal pain, bleeding, rash or any other signs or symptoms on ROS at this time. She states that she feels she is globally swollen and feels that she "may have fluid on her lungs".. Historical: - Allergies: 08:13 No Known Allergies; ph - Home Meds: 08:20 furosemide 40 mg Oral tablet 1 tab daily [Active]; ferrous sulfate 325 mg (65 mg iron) ph Oral tablet daily [Active]; pantoprazole 40 mg oral tablet, delayed release (enteric coated) 1 tab every morning [Active]; quetiapine 100 mg oral tablet 2 tabs daily [Active]; clopidogrel 75 mg oral tablet 1 tab daily [Active]; amiodarone 200 mg Oral tablet 1 tab daily [Active]; aspirin 81 mg Oral tablet,chewable 1 tab daily [Active]; atorvastatin 40 mg oral tablet 1 tab daily [Active]; metoprolol tartrate 25 mg Oral tablet 0.5 tab every 12 hours [Active]; fluticasone propionate 50 mcg/actuation intranasal spray, suspension [Active]; - PMHx: 08:13 diabetes mellitus; Hyperlipidemia; neuropathy; ph - PSHx: 08:13 Appendectomy; cardiac stents x 5 (Appendectomy); ph - Immunization history:: Adult Immunizations unknown. - Infectious Disease History:: Denies. - Social history:: Smoking status: Reported history of juuling and/or vaping. ROS: 08:11 Constitutional: Negative for fever, chills, and weight loss, Eyes: Negative for injury, sp3 pain, redness, and discharge, Neck: Negative for injury, pain, and swelling, Cardiovascular: Negative for chest pain, palpitations, and edema, Abdomen/GI: Negative for abdominal pain, nausea, vomiting, diarrhea, and constipation, Back: Negative for injury and pain, MS/Extremity: Negative for injury and deformity, Skin: Negative for injury, rash, and discoloration, Neuro: Negative for headache, weakness, numbness, tingling, and seizure, Psych: Negative for depression, anxiety, suicide ideation, homicidal ideation, and hallucinations, Allergy/Immunology: Negative for hives, rash, and allergies, Endocrine: Negative for neck swelling, polydipsia, polyuria, polyphagia, and marked weight changes, 08:11 All other systems are negative, Exam: 08:11 Constitutional: This is a well developed, well nourished patient who is awake, alert, sp3 and in no acute distress. Head/Face: Normocephalic, atraumatic. Eyes: Pupils equal round and reactive to light, extra-ocular motions intact. Lids and lashes normal. Conjunctiva and sclera are non-icteric and not injected. Cornea within normal limits. Periorbital areas with no swelling, redness, or edema. ENT: Nares patent. No nasal discharge, no septal abnormalities noted. External auditory canals are clear. Oropharynx with no redness, swelling, or masses, exudates, or evidence of obstruction, uvula midline. Mucous membranes moist. Neck: Trachea midline, no thyromegaly or masses palpated, and no cervical lymphadenopathy. Supple, full range of motion without nuchal rigidity, or vertebral point tenderness. No Meningismus. Abdomen/GI: Soft, non-tender, with normal bowel sounds. No distension or tympany. No guarding or rebound. No evidence of tenderness throughout. Back: No spinal tenderness. No costovertebral tenderness. Full range of motion. Skin: Warm, dry with normal turgor. Normal color with no rashes, no lesions, and no evidence of cellulitis. MS/ Extremity: Pulses equal, no cyanosis. Neurovascular intact. Full, normal range of motion. Neuro: Awake and alert, GCS 15, oriented to person, place, time, and situation. Cranial nerves II-XII grossly intact. Motor strength 5/5 in all extremities. Sensory grossly intact. Cerebellar exam normal. Normal gait. Psych: Awake, alert, with orientation to person, place and time. Behavior, mood, and affect are within normal limits. 08:11 Chest/axilla: Regular rate rhythm on cardiac exam. Sternotomy scar/wound present and healing.. 08:11 Respiratory: Rales bilaterally in global pitting edema noted., 08:15 ECG was reviewed by the Attending Physician. EKG demonstrates normal sinus rhythm at 60 sp3 bpm with normal intervals with QTc 468, rightward axis, poor R wave progression in the precordial leads nonspecific diffuse ST/T changes with inverted T waves in leads III and aVF. Vital Signs: 08:09 BP 83 / 62; Pulse 55; Resp 18; Pulse Ox 96% on R/A; Weight 75.75 kg; Height 5 ft. 6 in. ph ; 08:20 Temp 97.5; ph 08:32 BP 94 / 57; Pulse 55; Resp 18; Pulse Ox 95% on R/A; ph 09:40 BP 105 / 65; Pulse 57; Resp 18; Pulse Ox 98% on R/A; ph 10:31 BP 119 / 63; Pulse 62; Resp 18; Pulse Ox 99% on R/A; ph 08:09 Body Mass Index 26.95 (75.75 kg, 167.64 cm) ph MDM: 08:07 Medical Screening Exam initiated sp3 08:12 Data reviewed: vital signs, nurses notes, old medical records, lab test result(s), EKG, sp3 radiologic studies. ED course: 54-year-old female status post CABG 2 weeks ago now with shortness of breath. Differential diagnosis includes pulmonary edema, CHF, recurrent blockage, other coronary ischemic process, among others. Will obtain CT chest noncontrast to better assess lungs and heart, EKG, and general labs. Consider inpatient versus transfer after reviewing data and consulting with cardiology.. 09:45 ED course: Patient with bilateral pleural effusions on CT likely cause of her shortness sp3 of breath. Troponin at 500 likely sequela from her recent surgery however rate will need to be trended. Patient be transferred back to [facility] for continued postop care, pulmonary consult and cardiology follow-up.. 10:14 ED course: [facility] [place] accepted without conference. Patient will be transferred for sp3 continued care.. 11/24 08:08 Order name: Basic Metabolic Panel; Complete Time: 09:43 sp3 11/24 08:08 Order name: CBC with Diff; Complete Time: 09:43 sp3 11/24 08:08 Order name: LFT's; Complete Time: 09:43 sp3 11/24 08:08 Order name: Magnesium; Complete Time: 09:43 sp3 11/24 08:08 Order name: NT PRO-BNP; Complete Time: 09:43 sp3 11/24 08:08 Order name: PT-INR; Complete Time: 09:33 sp3 11/24 08:08 Order name: Troponin HS; Complete Time: 09:43 sp3 11/24 08:40 Order name: CBC Smear Scan; Complete Time: 09:43 EDMS 11/24 08:08 Order name: CT Chest Wo Con; Complete Time: 09:01 sp3 11/24 08:08 Order name: Cardiac monitoring; Complete Time: 08:16 sp3 11/24 08:08 Order name: EKG - Nurse/Tech; Complete Time: 08:15 sp3 11/24 08:08 Order name: IV Saline Lock; Complete Time: 08:28 sp3 11/24 08:08 Order name: Labs collected and sent; Complete Time: 08:28 sp3 11/24 08:08 Order name: O2 Per Protocol; Complete Time: 08:16 sp3 11/24 08:08 Order name: O2 Sat Monitoring; Complete Time: 08:16 sp3 11/24 08:45 Order name: Labs - recollect needed: recollect green and blue top; Complete Time: 09:30 eb Administered Medications: 10:30 Drug: morphine IVP or IV 2 mg IVP once over 4 mins Route: IVP; Infused Over: 4 mins; ph Site: right forearm; 10:56 Follow up: Response: No adverse reaction; Pain is decreased ph 10:30 Drug: Ondansetron IVP 4 mg IVP once; over 2 minutes Route: IVP; Site: right forearm; ph 10:56 Follow up: Response: No adverse reaction ph Disposition Summary: 11/24/24 09:47 Transfer Ordered Notes: Transfer Location: [facility] System sp3 Reason: Higher level of care sp3 Condition: Stable sp3 Problem: an acute exacerbation sp3 Symptoms: have worsened sp3 Accepting Physician: AUDREY [facility](11/24/24 10:56) ph Diagnosis - Dyspnea, pleural effusion bilaterally, elevated troponin from recent CABG sp3 Forms: - Medication Reconciliation Form sp3 - SBAR form sp3 Signatures: Dispatcher [employer] EDBrittanie Martínez RN RN ph Marlena Smith Setul, MD MD sp3 Corrections: (The following items were deleted from the chart) 08:08 08:08 BASIC METABOLIC PANEL+C.LAB.BRZ ordered. EDMS EDMS 08:08 08:08 CBC+H.LAB.BRZ ordered. EDMS EDMS 08:08 08:08 HEPATIC FUNCTION+C.LAB.BRZ ordered. EDMS EDMS 08:08 08:08 MAGNESIUM+C.LAB.BRZ ordered. EDMS EDMS 08:08 08:08 PROBNP+C.LAB.BRZ ordered. EDMS EDMS 08:08 08:08 PROTIME (+INR)+COAG.LAB.BRZ ordered. EDMS EDMS 08:08 08:08 Troponin High Sensitivity+C.LAB.BRZ ordered. EDMS EDMS 08:08 08:08 Thorax Wo Con+CT.RAD.BRZ ordered. EDMS EDMS 10:56 09:47 TBD [facility] sp3 ph
[2024-11-24] MEDS ORDERED: ONDANSETRON 4 MG/2 ML VIAL ONE (10:26)
[2024-11-24] MEDS ORDERED: MORPHINE 2 MG/ML SYR ONE (10:27)
[2024-11-24 11:20] VITALS: TEMP 97.5
[2024-11-24 11:24] VITALS: BP 119/63; O2SAT 99
--- NOTE | 2024-11-26 11:33 | EKG ---
Test Date: 2024-11-24 Test Time: 08:11:34 Recreational Aide: PEPE MEASUREMENT RESULTS: Intervals: Rate: 56 OH: 198 QRSD: 96 QT: 486 QTc: 468 [place]: P: 53 OH: 198 QRS: 104 T: -13 INTERPRETIVE STATEMENTS: Sinus bradycardia Rightward axis Low voltage QRS T wave abnormality, consider inferior ischemia Prolonged QT Abnormal ECG Compared to ECG 11/06/2024 08:58:41 Low QRS voltage now present T-wave abnormality now present Possible ischemia now present Prolonged QT interval now present Sinus rhythm no longer present Myocardial infarct finding no longer present Electronically Signed On 11-26-24 11:29:33 CDT by Nick Roca
== END 2024-11-24 10:56 | disposition short-term general hospital (02) ==
LOC: ER 08:05
DX: J90 Pleural effusion, not elsewhere classified (principal); R79.89 Other specified abnormal findings of blood chemistry; Z95.1 Presence of aortocoronary bypass graft; Z98.890 Other specified postprocedural states; Z95.818 Presence of other cardiac implants and grafts; Z79.82 Long term (current) use of aspirin
CPT/HCPCS: 93005; 85025; 80048; 36415; 83735; 85610; 80076; 84484; 83880; 71250; 96375; 96374; 99285; J2270; J2405

== ENCOUNTER 2024-12-04 10:43 | Emergency (ER) | payer OTHER ==
--- OUTSIDE RECORDS SUMMARY | 2024-12-04 10:53 | XMS REPORT | Continuity of Care Document ---
Author Name Unknown Address [address] [facility] [place] [address] [facility] [place] Address [address] 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 Name Role Phone Antoinette Ross Attending Clinician UnavailFlynn Garnica Attending Clinician Unavailab le UNKNOWN Attending Clinician Unavailable REMBERTO CONNORS Attending Clinician Unavailable LAB90 Attending Clinician Unavailable LAVELLE WILSON Attending Clinician Unavailable LAVELLE JOINER Attending Clinician Unavailable EVERARDO PAN Attending Clinician Unavailable Antoinette Ross Admitting Clinician UnavailAngela Ang Admitting Clinician Unavailable Payers Payer Name Policy Type Policy Number Effective Date Expirati on Date Source BCBS 2 [id number] 2022 00:00:00 [facility] 9 [id number] 2022 00:00:00 Problems Condition Name Condition Details [...] knee Disease Active 11-30 00:00: 00 Nancy ortega 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 type 2 with diabetic mixed hyperlipid emia Disease Active 11-30 00:00: 00 Nancy ortega Type 2 diabetes mellitus with hyperglyce branden, with long-term current use of insulin Type 2 diabetes mellitus with hyperglyce branden, with long-term current use of insulin Disease Active 11-30 00:00: 00 Nancy ortega Vitamin D deficiency Vitamin D deficiency Disease Active 11-30 00:00: 00 Nancy ortega Primary insomnia Primary insomnia Disease Active 10-01 00:00: 00 Nancy ortega Chronic bilateral low back pain without sciatica Chronic bilateral low back pain without sciatica Disease Active 10-01 00:00: 00 Nancy ortega DDD (degenerat leon disc disease), lumbar DDD (degenerat leon disc disease), lumbar Disease Active 10-01 00:00: 00 Nancy Tillmana shannon Class 2 severe obesity due to excess calories with serious comorbidit y and body mass index (BMI) of 37.0 to 37.9 in adult Class 2 severe obesity due to excess calories with serious comorbidit y and body mass index (BMI) of 37.0 to 37.9 in adult Disease Active 10-01 00:00: 00 Nancy ortega Diabetic polyneurop athy associated with type 2 diabetes mellitus Diabetic polyneurop athy associated with type 2 diabetes mellitus Disease Active 10-01 00:00: 00 Nancy Tillmana shannon Primary hypertensi on Primary hypertensi on Disease Active 10-01 00:00: 00 Nancy Tillmana shannon Allergies, Adverse Reactions, Alerts Allergy Name Allergy Type Status Severity Reaction(s) Onset Date Inactive Date Treating Clinician Comments Source heparin DA Active U BLOOD CLOT 4-05 00:00: 00 [facility] heparin DA Active U BLOOD CLOT 3- 00:00: 00 [facility] No Known Allergie s DA Active U 3-20 00:00: 00 [facility] Azithrom ycin Propensi ty to adverse reaction s Active Itching 2- 00:00: 00 Nancy ortega Social History Social Habit Start Date Stop Date Quantity Comments Source History of tobacco use Cigarette Smoker Nancy serrato - External Gender identity Radha Alba - External Sexual orientation Kallie kory Alba - External Alcohol intake 2023-02-17 00:00:00 2023-02-17 [...] MG oral Capsule 02-17 00:00: 00 Yes [id number] 900mg Take 3 capsules (900 mg total) by mouth 3 times daily Nancy ortega Losartan Potassium (COZAAR) 100 MG oral Tablet 02-17 00:00: 00 Yes [id number] 100mg Take 1 tablet (100 mg total) by mouth daily Nancy ortega Cyanocobala min (VIT B12) 1000 MCG/ML injection Solution 02-17 00:00: 00 Yes [id number] 1000ug Inject 1,000 mcg as directed once a month Nancy ortega Atorvastati n Calcium (Lipitor) 10 MG oral Tablet 02-17 00:00: 00 Yes [id number] 3 10mg Take 1 tablet (10 mg total) by mouth daily Nancy ortega Acetaminoph en-Codeine 300-30 MG oral Tablet 02-17 00:00: 00 Yes [id number] 1{tbl} Q.5D Take 1 tablet by mouth 2 times daily as needed for pain Nancy ortega Multiple Vitamins-Ir on (Multivitam in Plus Iron Adult) oral Tablet 01-09 00:00: 00 Yes [id number] 1{tbl} Take 1 tablet by mouth daily [...] MG oral Tablet 01-04 00:00: 00 Yes [id number] 100mg Take 1 tablet (100 mg total) by mouth daily Nancy ortega Gabapentin 300 MG oral Capsule 01-04 00:00: 00 Yes [id number] 900mg Take 3 capsules (900 mg total) by mouth 3 times daily Nancy ortega Atorvastati n Calcium (Lipitor) 10 MG oral Tablet 01-04 00:00: 00 Yes [id number] 3 10mg Take 1 tablet (10 mg total) by mouth daily Nancy ortega Quetiapine Fumarate 100 MG oral Tablet 01-04 00:00: 00 Yes [id number] 100mg QD Take 1 tablet (100 mg total) by mouth nightly as needed Nancy ortega Acetaminoph en-Codeine 300-30 MG oral Tablet 01-04 00:00: 00 Yes [id number] 1{tbl} Q.5D Take 1 tablet by mouth 2 times daily as needed for pain Nancy ortega Sertraline HCl 25 MG oral Tablet 01-04 00:00: 00 Yes [id number] 25mg Take 1 tablet (25 mg total) [...] MG oral Tablet 11-30 00:00: 00 Yes [id number] 1{tbl} Q.5D Take 1 tablet by mouth 2 times daily as needed for pain Nancy ortega Losartan Potassium (COZAAR) 100 MG oral Tablet 11-30 00:00: 00 Yes [id number] 100mg Take 1 tablet (100 mg total) by mouth daily Nancy ortega Gabapentin 300 MG oral Capsule 11-30 00:00: 00 Yes [id number] 900mg Take 3 capsules (900 mg total) by mouth 3 times daily Nancy ortega Quetiapine Fumarate 100 MG oral Tablet 11-30 00:00: 00 Yes [id number] 100mg QD Take 1 tablet (100 mg total) by mouth nightly as needed Nancy ortega Tirzepatide (Mounjaro) 10 MG/0.5ML subcutaneou s Solution Pen-injecto r 11-30 00:00: 00 Yes [id number] 10mg Inject 0.5 mL (10 mg total) into the skin once a week Nancy ortega Cyanocobala min (VIT B12) 1000 MCG/ML injection Solution 11-30 00:00: 00 02-17 00:00 :00 No [id number] 1000ug Inject 1,000 mcg as directed once a month Nancy ortega Tirzepatide (Mounjaro) 7.5 MG/0.5ML subcutaneou s Solution Pen-injecto r - 00:00: 00 11-30 00:00 :00 No [id number] 3 7.5mg Inject 0.5 mL (7.5 mg total) into the skin once a week Nancy ortega Quetiapine Fumarate 100 MG oral Tablet 11-04 00:00: 00 11-30 00:00 :00 No [id number] TAKE ONE (1) TABLET(S) BY MOUTH NIGHTLY. Nancy ortega Atorvastati n Calcium (Lipitor) 10 MG oral Tablet 2- 00:00: 00 01-04 00:00 :00 No [id number] 3 10mg Take 1 tablet (10 mg total) by mouth daily Nancy ortega Vitamin D, Ergocalcife rol, 1.25 MG (93849 UT) oral Capsule 2-15 00:00: 00 11-30 00:00 :00 No [id number] 76006G Take 1 capsule (50,000 units total) by [...] MG oral Tablet 10-01 00:00: 00 Yes [id number] 100mg Take 1 tablet (100 mg total) by mouth nightly Nancy ortega Tirzepatide (Mounjaro) 7.5 MG/0.5ML subcutaneou s Solution Pen-injecto r 10-01 00:00: 00 Yes [id number] 7.5mg Inject 0.5 mL (7.5 mg total) into the skin once a week Nancy ortega Metformin HCl 500 MG oral Tablet 10-01 00:00: 00 Yes [id number] 500mg Take 1 tablet (500 mg total) by mouth in the morning and 1 tablet (500 mg total) in the evening. Take with meals. Nancy ortega Cyanocobala min (VIT B12) 1000 MCG/ML injection Solution 10-01 00:00: 00 Yes [id number] 1000ug Inject 1,000 mcg as directed once a month Nancy ortega Losartan Potassium (COZAAR) 100 MG oral Tablet 10-01 00:00: 00 Yes [id number] 100mg Take 1 tablet (100 mg total) by mouth daily Nancy ortega Gabapentin 300 MG oral Capsule 10-01 00:00: 00 Yes [id number] 900mg Take 3 capsules (900 mg total) by mouth 3 times daily Nancy ortega Acetaminoph en-Codeine 300-30 MG oral Tablet 10-01 00:00: 00 Yes [id number] 1{tbl} Q.5D Take 1 tablet by mouth 2 times daily as needed for pain Nancy orteag Cyanocobala min (VIT B12) 1000 MCG/ML injection Solution 09-24 00:00: 00 10-01 00:00 :00 No INJECT ONE (1) ML(S) INTO THE MUSCLE ONCE A MONTH. Nancy ortega Vital Signs Vital Name Observation Time Observation Value Comments S ource Systolic blood pressure 2023-02-17 18:38:00 130 mm[Hg] Nancy El ld - External Diastolic blood pressure 2023-02-17 18:38:00 74 mm[Hg] Nancy El ld - External Heart rate 2023-02-17 18:38:00 75 /min Jacquelin Alba - External Body temperature 2023-02-17 18:38:00 36.22 Vale Nancy Alba - External Respiratory rate 2023-02-17 18:38:00 15 /min Nancy Alba - External Body height 2023-02-17 18:38:00 170.2 cm Radha Alba - External Body weight 2023-02-17 18:38:00 102.513 kg Radha Alba - External BMI 2023-02-17 18:38:00 35.40 kg/m2 Radha Alba - External Systolic blood pressure 2023-01-04 12:55:00 143 mm[Hg] Nancy Seybo ld - External Diastolic blood pressure 2023-01-04 12:55:00 85 mm[Hg] Nancy Seybo ld - External Heart rate 2023-01-04 12:55:00 79 /min Kelse y Seybold - External Body temperature 2023-01-04 12:55:00 36.56 [...] External Heart rate 2022-11-30 15:34:00 70 /min Raúlse y Seybold - External Body temperature 2022-11-30 [...] External Heart rate 2022-10-01 19:54:00 99 /min Jacquelin Alba - External Body temperature 2022-10-01 19:54:00 36.5 Vale Nancy Alba - External Respiratory rate 2022-10-01 19:54:00 15 /min Nancy Alba - External Body height 2022-10-01 19:54:00 170.2 cm Rahda Alba - External Body weight 2022-10-01 19:54:00 105.688 kg Radha artis Seybold - External BMI 2022-10-01 19:54:00 36.49 kg/m2 Radha artis Seybama - External Procedures Procedure Date / Time Performed Performing Clinicia n Source DRAINAGE OF CHEST WALL WITH DRAINAGE DEVICE, OPEN 2024-11-26 00:00:00 [facility].01 [facility] DRAINAGE OF PERICARDIAL CAVITY, OPEN APPROACH 2024-11-26 00:00:00 [facility]AAB.01 [facility] DRAINAGE OF R PLEURAL CAV WITH DRAIN DEV, PERC JOSE ANGEL 2024-11-19 00:00:00 SHEAL01 [facility] DRAINAGE OF L PLEURAL CAV WITH DRAIN DEV, PERC JOSE ANGEL 2024-11-19 00:00:00 SHEAL01 [facility] BYPASS 1 COR ART FROM L INT MAMMARY, OPEN APPROACH 2024-11-09 00:00:00 CHAAB.01 [facility] BYPASS 4+ COR ART FROM AORTA WITH AUTOL VN, OPEN A 2024-11-09 00:00:00 [facility]AA[facility].01 [facility] EXCISION OF RIGHT SAPHENOUS VEIN, PERC ENDO APPROA 2024-11-09 00:00:00 [facility]AA[facility].01 [facility] EXCISION OF LEFT SAPHENOUS VEIN, PERC ENDO APPROAC 2024-11-09 00:00:00 [facility].01 [facility] EXCISION OF LEFT ATRIAL APPENDAGE, OPEN APPROACH 2024-11-09 00:00:00 [facility]AA[facility].01 [facility] PERFORMANCE OF CARDIAC OUTPUT, CONTINUOUS 2024-11-09 00:00:00 [facility]AAB.01 [facility] INSERTION OF INFUSION DEVICE INTO UPPER VEIN, PERC 2024-11-09 00:00:00 RAMED [facility] INSERTION OF MONITORING DEVICE INTO UP ART, PERC A 2024-11-09 [facility], PERIPHERAL, PERC 2024-11-09 00:00:00 [facility] MONITORING OF ARTERIAL PULSE, PERIPHERAL, PERC JOSE ANGEL 2024-11-09 00:00:00 [facility] Encounters Start Date/Time End Date/Time Encounter Type Admission Type Attending Clinicians Care Facility Care Department Encounter ID Source 2024-11-26 08:55:00 2024-11-29 12:50:00 Inpatient Antoinette Gaona [facility] INTE [id number] [facility] 2024-11-08 01:59:00 2024-11-21 11:00:00 Inpatient Flynn Gold [facility] INTE.02 [id number] [facility] 2023-06-21 00:00:00 2023-06-21 00:00:00 Outpatient REMBERTO CONNORS [id number] [facility] 2023-04-07 08:15:00 2023-04-07 08:15:00 Outpatient PREREMBERTO NOBLE [id number] [facility] 2023-03-21 10:19:58 2023-03-21 10:19:58 Outpatient SFA SFA [id number] Luis F Mac Jose 2023-03-17 10:15:00 2023-03-17 10:15:00 Outpatient REMBERTO CONNORS [id number] [facility] 2023-03-01 08:45:00 2023-03-01 08:45:00 Outpatient PREREMBERTO NOBLE [id number] [facility] 2023-03-01 00:00:00 2023-03-01 00:00:00 Outpatient REMBERTO CONNORS [id number] [facility] 2023-02-17 14:45:00 2023-02-17 14:45:00 Outpatient LAB90 NANCY BENITEZ [id number] [facility] 2023-02-17 14:00:00 2023-02-17 14:00:00 Outpatient HUNDL, LAVELLE BENITEZ NANCY [id number] Nancy Seybold 2023-02-15 00:00:00 2023-02-15 00:00:00 Outpatient PREZAS, REMBERTO BENITEZ NANCY [id number] Nancy Seybold 2023-01-09 00:00:00 2023-01-09 00:00:00 Outpatient PREZAS, REMBERTO NANCY BENITEZ [id number] Nancy Seybold 2023-01-07 08:00:00 2023-01-07 08:00:00 Outpatient LAB90 NANCY BENITEZ [id number] Nancy Seybold 2023-01-07 00:00:00 2023-01-07 00:00:00 Outpatient PREZAS, REMBERTO NANCY BENITEZ [id number] Nancy Seybold 2023-01-07 00:00:00 2023-01-07 00:00:00 Outpatient IZOLA, LAVELLE NANCY BENITEZ [id number] Nancy Seybold 2023-01-04 08:30:00 2023-01-04 08:30:00 Outpatient LAB90 NANCY BENITEZ [id number] Nancy Seybold 2023-01-04 08:00:00 2023-01-04 08:00:00 Outpatient PREZAS, REMBERTO NANCY BENITEZ [id number] Nancy Seybold 2022-12-10 00:00:00 2022-12-10 00:00:00 Outpatient PREZAS, REMBERTO NANCY BENITEZ [id number] Nancy Seybold 2022-11-30 11:30:00 2022-11-30 11:30:00 Outpatient LAB90 NANCY BENITEZ [id number] Nancy Seybold 2022-11-30 10:45:00 2022-11-30 10:45:00 Outpatient PREZAS, REMBERTO NANCY BENITEZ [id number] Nancy Seybold 2022-11-25 00:00:00 2022-11-25 00:00:00 Outpatient PREZAS, REMBERTO NANCY BENITEZ [id number] Nancy Seybold 2022-11-22 00:00:00 2022-11-22 00:00:00 Outpatient PREZAS, REMBERTO COUCHSEY [id number] [facility] 2022-11-22 00:00:00 2022-11-22 00:00:00 Outpatient PREZAS, REMBERTO BENITEZ [id number] Nancy [facility] 2022-11-20 00:00:00 2022-11-20 00:00:00 Outpatient PREZAS, REMBERTO BENITEZ NANCY [id number] Nancy [facility] 2022-11-05 00:00:00 2022-11-05 00:00:00 Outpatient PREZAS, REMBERTO BENITEZ NANCY [id number] Nancy [facility] 2022-11-04 00:00:00 2022-11-04 00:00:00 Outpatient PREZAS, REMBERTO BENITEZ NANCY [id number] Nancy [facility] 2022-10-29 15:30:00 2022-10-29 15:30:00 Outpatient PREZAS, REMBERTO BENITEZ NANCY [id number] [facility] 2022-10-19 00:00:00 2022-10-19 00:00:00 Outpatient PREZAS, REMBERTO BENITEZ NANCY [id number] Nancy [facility] 2022-10-13 00:00:00 2022-10-13 00:00:00 Outpatient PREZAS, REMBERTO BENITEZ NANCY [id number] Nancy [facility] 2022-10-11 00:00:00 2022-10-11 00:00:00 Outpatient PREZAS, REMBERTO NANCY BENITEZ [id number] Nancy [facility] 2022-10-06 00:00:00 2022-10-06 00:00:00 Outpatient PREZAS, REMBERTO NANCY NANCY [id number] Nancy Seybold 2022-10-06 00:00:00 2022-10-06 00:00:00 Outpatient PREZAS, REMBERTO NANCY BENITEZ [id number] Nancy Seybold 2022-10-05 08:20:00 2022-10-05 08:20:00 Outpatient LABJenn BENITEZ [id number] Nancy [facility] 2022-10-04 00:00:00 2022-10-04 00:00:00 Outpatient EVERARDO PAN [id number] Nancy Alba 2022-10-01 15:00:00 2022-10-01 15:00:00 Outpatient LAB90 NANCY BENITEZ [id number] Nancy Alba 2022-10-01 14:15:00 2022-10-01 14:15:00 Outpatient REMBERTO CONNORS NANCY [id number] Nancyhaley Alba Results Test Description Test Time Test Comments Results Result Co mments Source [id number] 06:16:00* Test Item Value Reference Range Interpretation Comme nts MAGNESIUM (test code = MAG) 1.91 mg/dL 1.6-2.6 N CBC W/AUTO [id number] 05:47:00* Test Item Value Reference Range Interpretation Comme nts WHITE BLOOD CELL (test code = WBC) 5.8 x10 3/uL 4.5-11.0 N RED BLOOD CELL (test code = RBC) 3.02 x10 6/uL 3.54-5.02 L HEMOGLOBIN (test code = HGB) 7.5 g/dL 11.0-15.0 L HEMATOCRIT (test code = HCT) 25.7 % 33.0-45.0 L MEAN CELL VOLUME (test code = MCV) 85.1 fL 81.0-99.0 N MEAN CELL HGB (test code = MCH) 24.8 pg 27.0-33.0 L MEAN CELL HGB CONCETRATION (test code = MCHC) 29.2 g/dL 33.0-37.0 L RED CELL DISTRIBUTION WIDTH CV (test code = RDW) 19.3 % 11.5-14.5 H RED CELL DISTRIBUTION WIDTH SD (test code = RDW-SD) 59.7 fL 37.0-54.0 H PLATELET COUNT (test code = PLT) 180 x10 3/uL 150-400 N MEAN PLATELET VOLUME (test c ode = MPV) 10.4 fL 7.0-9.0 H NEUTROPHIL % (test code = NT%) 63.5 % 56.0-77.0 N IMMATURE GRANULOCYTE % (test code = IG%) 0.5 % 0.0-2.0 N LYMPHOCYTE % (test code = LY%) 18.8 % 14.0-32.0 N MONOCYTE % (test code = MO%) 8.2 % 4.8-9.0 N EOSINOPHIL % (test code = EO%) 8.5 % 0.3-3.7 H BASOPHIL % (test code = BA%) 0.5 % 0.0-2.0 N NUCLEATED RBC % (test code = NRBC%) 0.0 % 0-0 N NEUTROPHIL # (test code = NT#) 3.66 x10 3/uL 2.0-7.6 N IMMATURE GRANULOCYTE # (test code = IG#) 0.03 x10 3/uL 0.00-0.03 N LYMPHOCYTE # (test code = LY#) 1.08 x10 3/uL 1.0-3.8 N MONOCYTE # (test code = MO#) 0.47 x10 3/uL 0.1-0.8 N EOSINOPHIL # (test code = EO#) 0.49 x10 3/uL 0.0-0.2 H BASOPHIL # (test code = BA#) 0.03 x10 3/uL 0.0-0.2 N NUCLEATED RBC # (test code = NRBC#) 0.00 x10 3/uL 0.0-0.1 N HEPATIC FUNCTION [id number] 07:04:00* Test Item Value Reference Range Interpretation Comme nts TOTAL PROTEIN (test code = PROT) 6.4 g/dL 5.7-8.2 N Note change in REFERENCE RANGE due to change in REAGENT. ALBUMIN (test code = ALB) 2.50 g/dL 3.4-5.0 L BILIRUBIN TOTAL (test code = BILT) 0.30 mg/dL 0.0-1.0 N BILIRUBIN DIRECT (test code = BILD) 0.10 MG/DL 0.1-0.3 N BILIRUBIN INDIRECT (test code = BILIND) 0.20 MG/DL SGOT/AST (test code = AST) 34 IUnit/L 8-34 SGPT/ALT (test code = ALT) 54 IUnit/L 10-49 H ALKALINE PHOSPHATASE TOTAL (test code = ALKP) 109 IUnit/L 20-125 N [id number] 07:04:00* Test Item Value Reference Range Interpretation Comme nts MAGNESIUM (test code = MAG) 1.96 mg/dL 1.6-2.6 N BASIC METABOLIC [id number] 05:58:00* Test Item Value Reference Range Interpretation Comme nts SODIUM (test code = NA) 140 mEq/L 134-147 N POTASSIUM (test code = K) 4.3 mEq/L 3.4-5.0 N CHLORIDE (test code = CL) 106 mEq/L 100-108 N CARBON DIOXIDE (test code = CO2) 27 mEq/l 21-33 N ANION GAP (test code = GAP) 11 0-20 N GLUCOSE (test code = GLU) 191 mg/dL 77-141 H BLOOD UREA NITROGEN (test [...] code = CA) 8.8 mg/dL 8.0-10.5 N CBC W/AUTO [id number] 05:45:00* Test Item Value Reference Range Interpretation Comme nts WHITE BLOOD CELL (test code = WBC) 8.3 x10 3/uL 4.5-11.0 N RED BLOOD CELL (test code = RBC) 3.44 x10 6/uL 3.54-5.02 L HEMOGLOBIN (test code = HGB) 8.5 g/dL 11.0-15.0 L HEMATOCRIT (test code = HCT) 29.1 % 33.0-45.0 L MEAN CELL VOLUME (test code = MCV) 84.6 fL 81.0-99.0 N MEAN CELL HGB (test code = MCH) 24.7 pg 27.0-33.0 L MEAN CELL HGB CONCETRATION (test code = MCHC) 29.2 g/dL 33.0-37.0 L RED CELL DISTRIBUTION WIDTH CV (test code = RDW) 19.7 % 11.5-14.5 H RED CELL DISTRIBUTION WIDTH SD (test code = RDW-SD) 59.7 fL 37.0-54.0 H PLATELET COUNT (test code = PLT) 228 x10 3/uL 150-400 N MEAN PLATELET VOLUME (test c ode = MPV) 10.6 fL 7.0-9.0 H NEUTROPHIL % (test code = NT%) 68.4 % 56.0-77.0 N IMMATURE GRANULOCYTE % (test code = IG%) 0.5 % 0.0-2.0 N LYMPHOCYTE % (test code = LY%) 17.4 % 14.0-32.0 N MONOCYTE % (test code = MO%) 6.3 % 4.8-9.0 N EOSINOPHIL % (test code = EO%) 6.9 % 0.3-3.7 H BASOPHIL % (test code = BA%) 0.5 % 0.0-2.0 N NUCLEATED RBC % (test code = NRBC%) 0.0 % 0-0 N NEUTROPHIL # (test code = NT#) 5.65 x10 3/uL 2.0-7.6 N IMMATURE GRANULOCYTE # (test code = IG#) 0.04 x10 3/uL 0.00-0.03 H LYMPHOCYTE # (test code = LY#) 1.44 x10 3/uL 1.0-3.8 N MONOCYTE # (test code = MO#) 0.52 x10 3/uL 0.1-0.8 N EOSINOPHIL # (test code = EO#) 0.57 x10 3/uL 0.0-0.2 H BASOPHIL # (test code = BA#) 0.04 x10 3/uL 0.0-0.2 N NUCLEATED RBC # (test code = NRBC#) 0.00 x10 3/uL 0.0-0.1 N BASIC METABOLIC [id number] 18:42:00* Test Item Value Reference Range Interpretation Comme nts SODIUM (test code = NA) 139 mEq/L 134-147 N POTASSIUM (test code = K) 4.0 mEq/L 3.4-5.0 N CHLORIDE (test code = CL) 101 mEq/L 100-108 N CARBON DIOXIDE (test code = CO2) 28 mEq/l 21-33 N ANION GAP (test code = GAP) 14 0-20 N GLUCOSE (test code = GLU) 222 mg/dL 77-141 H BLOOD UREA NITROGEN (test code = BUN) 16 mg/dL 7-25 N GLOMERULAR FILTRATION RATE (test code = GFR) 67.8 90-95 L The Glomerular Filtration Rate is [...] <18 years. CREATININE (test code = CREAT) 1.0 mg/dL 0.6-1.3 N CALCIUM (test code = CA) 8.6 mg/dL 8.0-10.5 N [id number] 18:42:00* Test Item Value Reference Range Interpretation Comme nts MAGNESIUM (test code = MAG) 1.96 mg/dL 1.6-2.6 N GLUCOSE [id number] 14:02:00* Test Item Value Reference Range Interpretation Comme nts GLUCOSE BEDSIDE (test code = GLUBED) 135 MG/DL 70-110 H Performed by cer tified laser printing operator at [facility] GLUCOSE [id number] 08:56:00* Test Item Value Reference Range Interpretation Comme nts GLUCOSE BEDSIDE (test code = GLUBED) 119 MG/DL 70-110 H Performed by cer tified laser printing operator at [facility] GLUCOSE [id number] 06:21:00* Test Item Value Reference Range Interpretation Comme nts GLUCOSE BEDSIDE (test code = GLUBED) 121 MG/DL 70-110 H Performed by [employer] tified laser printing operator at [facility] GLUCOSE [id number] 04:30:00* Test Item Value Reference Range Interpretation Comme nts GLUCOSE BEDSIDE (test code = GLUBED) 200 MG/DL 70-110 H Performed by [employer] laser printing operator at [facility] BASIC METABOLIC [id number] 03:57:00* Test Item Value Reference Range Interpretation Comme nts SODIUM (test code = NA) 137 mEq/L 134-147 N POTASSIUM (test code = K) 4.2 mEq/L 3.4-5.0 N CHLORIDE (test code = CL) 105 mEq/L 100-108 N CARBON DIOXIDE (test code = CO2) 24 mEq/l 21-33 N ANION GAP (test code = GAP) 12 0-20 N GLUCOSE (test code = GLU) 223 mg/dL 77-141 H BLOOD UREA NITROGEN (test [...] code = CA) 8.6 mg/dL 8.0-10.5 N [id number] 03:57:00* Test Item Value Reference Range Interpretation Comme nts MAGNESIUM (test code = MAG) 2.23 mg/dL 1.6-2.6 N CBC W/AUTO [id number] 03:40:00* Test Item Value Reference Range Interpretation Comme nts WHITE BLOOD CELL (test code = WBC) 7.0 x10 3/uL 4.5-11.0 RED BLOOD CELL (test code = RBC) 3.53 x10 6/uL 3.54-5.02 L HEMOGLOBIN (test code = HGB) 8.7 g/dL 11.0-15.0 L HEMATOCRIT (test code = HCT) 30.1 % 33.0-45.0 L MEAN CELL VOLUME (test code = MCV) 85.3 fL 81.0-99.0 N MEAN CELL HGB (test code = MCH) 24.6 pg 27.0-33.0 L MEAN CELL HGB CONCETRATION (test code = MCHC) 28.9 g/dL 33.0-37.0 L RED CELL DISTRIBUTION WIDTH CV (test code = RDW) 19.3 % 11.5-14.5 H RED CELL DISTRIBUTION WIDTH SD (test code = RDW-SD) 59.4 fL 37.0-54.0 H PLATELET COUNT (test code = PLT) 197 x10 3/uL 150-400 N IMMATURE PLATELET FRACTION (test code = IPF) 5.3 % 0.9-11.2 N MEAN PLATELET VOLUME (test c ode = MPV) 11.4 fL 7.0-9.0 H NEUTROPHIL % (test code = NT%) 83.5 % 56.0-77.0 H IMMATURE GRANULOCYTE % (test code = IG%) 0.6 % 0.0-2.0 N LYMPHOCYTE % (test code = LY%) 9.6 % 14.0-32.0 L MONOCYTE % (test code = MO%) 6.1 % 4.8-9.0 N EOSINOPHIL % (test code = EO%) 0.1 % 0.3-3.7 L BASOPHIL % (test code = BA%) 0.1 % 0.0-2.0 N NUCLEATED RBC % (test code = NRBC%) 0.0 % 0-0 N NEUTROPHIL # (test code = NT#) 5.85 x10 3/uL 2.0-7.6 N IMMATURE GRANULOCYTE # (test code = IG#) 0.04 x10 3/uL 0.00-0.03 H LYMPHOCYTE # (test code = LY#) 0.67 x10 3/uL 1.0-3.8 L MONOCYTE # (test code = MO#) 0.43 x10 3/uL 0.1-0.8 N EOSINOPHIL # (test code = EO#) 0.01 x10 3/uL 0.0-0.2 N BASOPHIL # (test code = BA#) 0.01 x10 3/uL 0.0-0.2 N NUCLEATED RBC # (test code = NRBC#) 0.00 x10 3/uL 0.0-0.1 N GLUCOSE [id number] 02:17:00* Test Item Value Reference Range Interpretation Comme nts GLUCOSE BEDSIDE (test code = GLUBED) 260 MG/DL 70-110 H Performed by cer tified laser printing operator at [facility] GLUCOSE [id number] 00:10:00* Test Item Value Reference Range Interpretation Comme nts GLUCOSE BEDSIDE (test code = GLUBED) 372 MG/DL 70-110 H Performed by cer tified laser printing operator at [facility] GLUCOSE [id number] 21:30:00* Test Item Value Reference Range Interpretation Comme nts GLUCOSE BEDSIDE (test code = GLUBED) 445 MG/DL 70-110 H Performed by cer tified laser printing operator at [facility] GLUCOSE [id number] 20:18:00* Test Item Value Reference Range Interpretation Comme nts GLUCOSE BEDSIDE (test code = GLUBED) 338 MG/DL 70-110 H Performed by cer tified laser printing operator at [facility] GLUCOSE [id number] 20:13:00* Test Item Value Reference Range Interpretation Comme nts GLUCOSE BEDSIDE (test code = GLUBED) 277 MG/DL 70-110 H Performed by cer tified laser printing operator at [facility] GLUCOSE [id number] 18:20:00* Test Item Value Reference Range Interpretation Comme nts GLUCOSE BEDSIDE (test code = GLUBED) 154 MG/DL 70-110 H Performed by cer tified laser printing operator at [facility] BASIC METABOLIC [id number] 15:12:00* Test Item Value Reference Range Interpretation Comme nts SODIUM (test code = NA) 138 mEq/L 134-147 N POTASSIUM (test code = K) 3.7 mEq/L 3.4-5.0 N CHLORIDE (test code = CL) 104 mEq/L 100-108 N CARBON DIOXIDE (test code = CO2) 27 mEq/l 21-33 N ANION GAP (test code = GAP) 11 0-20 N GLUCOSE (test code = GLU) 249 mg/dL 77-141 H BLOOD UREA NITROGEN (test [...] 0.6-1.3 N CALCIUM (test code = CA) 7.9 mg/dL 8.0-10.5 L HGB [id number] 14:56:00* Test Item Value Reference Range Interpretation Comme nts HEMOGLOBIN (test code = HGB) 7.6 g/dL 11.0-15.0 L HEMATOCRIT (test code = HCT) 26.3 % 33.0-45.0 L COMMENTS: On [id number] 13:14:00* Test Item Value Reference Range Interpretation Comme nts ACT-ISTAT (test code = ACTI) 152 SEC 74-137 H Performed by cer tified laser printing operator at [facility] POC ARTERIAL BLOOD [id number] 12:58:00* Test Item Value Reference Range Interpretation Comme nts POC ARTERIAL BLOOD GAS PH (test code = POCPHA) 7.434 7.35-7.45 N POC ARTERIAL BLOOD GAS PCO2 (test code = JLXMHJ5R) 36.9 mmHg 35.0-45 N POC TCO2 ARTERIAL (test code = POCTCO2) 25.8 22-29 N POC ARTERIAL BLOOD GAS PO2 (test code = EONUN2V) 453.3 mmHg 80-100.0 HH POC HCO3 ARTERIAL (test code = UOKTNX0F) 24.7 MMOL/L 22.0-26.0 N POC BASE EXCESS (test code = POCBEA) 0.5 MMOL/L See_Comment N [Automated messa ge] The system which generated this result transmitted reference range: 0-+/-4. The reference range was not used to interpret this result as normal/abnormal. POC O2 SATURATION (test code = POCO2S) 100.0 % 90-100 N BASIC METABOLIC [id number] 12:58:00* Test Item Value Reference Range Interpretation Comme nts SODIUM (test code = NA/ABG) 138 mmol/L 134-147 N POTASSIUM (test code = K/ABG) 3.4 mmol/L 3.4-5.0 N CHLORIDE (test code = CL/ABG) 107 mmol/L 100-108 N CREATININE ABG (test code = CREAABG) 0.6 mg/dL 0.6-1.3 N POC IONIZED CALCIUM (test co de = POCCA) 1.12 MMOL/L 1.12-1.32 N POC GLUCOSE (test code = POCGLU) 169 MG/DL 70-110 H HEMOGLOBIN [id number] 12:58:00* Test Item Value Reference Range Interpretation Comme nts HEMOGLOBIN ABG (test code = HGB/ABG) 8.0 G/DL 11.0-15.0 L [id number] 12:58:00* Test Item Value Reference Range Interpretation Comme nts HEMATOCRIT (test code = HCT/ABG) 24 % 33-45 L POC LACTIC [id number] 12:58:00* Test Item Value Reference Range Interpretation Comme nts POC LACTIC ACID (test code = POCLAC) < 0.3 mmol/l 0.9-1.7 L HCG SERUM [id number] 07:36:00* Test Item Value Reference Range Interpretation Comme nts HCG SERUM QUAL (test code = HCGQL) SERUM NEGATIVE NEGATIVE GLUCOSE [id number] 07:35:00* Test Item Value Reference Range Interpretation Comme nts GLUCOSE BEDSIDE (test code = GLUBED) 155 MG/DL 70-110 H Performed by cer tified laser printing operator at [facility] COMPREHENSIVE METABOLIC [id number] 04:58:00* Test Item Value Reference Range Interpretation Comme nts SODIUM (test code = NA) 139 mEq/L 134-147 N POTASSIUM (test code = K) 3.7 mEq/L 3.4-5.0 N CHLORIDE (test code = CL) 105 mEq/L 100-108 N CARBON DIOXIDE (test code = CO2) 28 mEq/l 21-33 N ANION GAP (test code = GAP) 10 0-20 N GLUCOSE (test code = GLU) 158 mg/dL 77-141 H BLOOD UREA NITROGEN (test code = BUN) 16 mg/dL 7-25 N GLOMERULAR FILTRATION RATE (test [...] code = CREAT) 0.8 mg/dL 0.6-1.3 N TOTAL PROTEIN (test code = PROT) 6.1 g/dL 5.7-8.2 N Note change in REFERENCE RANGE due to change in REAGENT. ALBUMIN (test code = ALB) 2.40 g/dL 3.4-5.0 L CALCIUM (test code = CA) 8.1 mg/dL 8.0-10.5 N BILIRUBIN TOTAL (test code = BILT) 0.40 mg/dL 0.0-1.0 N SGOT/AST (test code = AST) 72 IUnit/L 8-34 H SGPT/ALT (test code = ALT) 83 IUnit/L 10-49 H ALKALINE PHOSPHATASE TOTAL (test code = ALKP) 98 IUnit/L 20-125 N [id number] 04:58:00* Test Item Value Reference Range Interpretation Comme nts MAGNESIUM (test code = MAG) 2.22 mg/dL 1.6-2.6 N PROTHROMBIN [id number] 04:35:00* Test Item Value Reference Range Interpretation Comme [...] Infarction (to prevent recurrent infarct). THROMBOPLASTIN TIME [id number] 04:35:00* Test Item Value Reference Range Interpretation Comme nts THROMBOPLASTIN TIME PARTIAL (test code = PTT) 29.7 Seconds 25.0-39.5 N Therapeutic Rang e: 58.8 - 96.0 Seconds Effective 06/15/2024 CBC W/AUTO [id number] 04:20:00* Test Item Value Reference Range Interpretation Comme nts WHITE BLOOD CELL (test code = WBC) 4.0 x10 3/uL 4.5-11.0 L RED BLOOD CELL (test code = RBC) 2.95 x10 6/uL 3.54-5.02 L HEMOGLOBIN (test code = HGB) 7.3 g/dL 11.0-15.0 L HEMATOCRIT (test code = HCT) 25.1 % 33.0-45.0 L MEAN CELL VOLUME (test code = MCV) 85.1 fL 81.0-99.0 N MEAN CELL HGB (test code = MCH) 24.7 pg 27.0-33.0 L MEAN CELL HGB CONCETRATION (test code = MCHC) 29.1 g/dL 33.0-37.0 L RED CELL DISTRIBUTION WIDTH CV (test code = RDW) 19.3 % 11.5-14.5 H RED CELL DISTRIBUTION WIDTH SD (test code = RDW-SD) 59.1 fL 37.0-54.0 H PLATELET COUNT (test code = PLT) 178 x10 3/uL 150-400 N MEAN PLATELET VOLUME (test c ode = MPV) 11.1 fL 7.0-9.0 H NEUTROPHIL % (test code = NT%) 55.4 % 56.0-77.0 L IMMATURE GRANULOCYTE % (test code = IG%) 1.0 % 0.0-2.0 N LYMPHOCYTE % (test code = LY%) 24.4 % 14.0-32.0 N MONOCYTE % (test code = MO%) 11.7 % 4.8-9.0 H EOSINOPHIL % (test code = EO%) 7.0 % 0.3-3.7 H BASOPHIL % (test code = BA%) 0.5 % 0.0-2.0 N NUCLEATED RBC % (test code = NRBC%) 0.0 % 0-0 N NEUTROPHIL # (test code = NT#) 2.22 x10 3/uL 2.0-7.6 N IMMATURE GRANULOCYTE # (test code = IG#) 0.04 x10 3/uL 0.00-0.03 H LYMPHOCYTE # (test code = LY#) 0.98 x10 3/uL 1.0-3.8 L MONOCYTE # (test code = MO#) 0.47 x10 3/uL 0.1-0.8 N EOSINOPHIL # (test code = EO#) 0.28 x10 3/uL 0.0-0.2 H BASOPHIL # (test code = BA#) 0.02 x10 3/uL 0.0-0.2 N NUCLEATED RBC # (test code = NRBC#) 0.00 x10 3/uL 0.0-0.1 N GLUCOSE [id number] 22:28:00* Test Item Value Reference Range Interpretation Comme nts GLUCOSE BEDSIDE (test code = GLUBED) 159 MG/DL 70-110 H Performed by cer tified laser printing operator at [facility] GLUCOSE [id number] 21:08:00* Test Item Value Reference Range Interpretation Comme nts GLUCOSE BEDSIDE (test code = GLUBED) 114 MG/DL 70-110 H Performed by cer tified laser printing operator at [facility] GLUCOSE [id number] 16:07:00* Test Item Value Reference Range Interpretation Comme nts GLUCOSE BEDSIDE (test code = GLUBED) 152 MG/DL 70-110 H Performed by cer tified laser printing operator at [facility] GLUCOSE [id number] 12:10:00* Test Item Value Reference Range Interpretation Comme nts GLUCOSE BEDSIDE (test code = GLUBED) 246 MG/DL 70-110 H Performed by cer tified laser printing operator at [facility] GLUCOSE [id number] 08:22:00* Test Item Value Reference Range Interpretation Comme nts GLUCOSE BEDSIDE (test code = GLUBED) 248 MG/DL 70-110 H Performed by [employer] tified laser printing operator at [facility] BASIC METABOLIC [id number] 06:17:00* Test Item Value Reference Range Interpretation Comme nts SODIUM (test code = NA) 137 mEq/L 134-147 N POTASSIUM (test code = K) 4.1 mEq/L 3.4-5.0 N CHLORIDE (test code = CL) 102 mEq/L 100-108 N CARBON DIOXIDE (test code = CO2) 29 mEq/l 21-33 N ANION GAP (test code = GAP) 10 0-20 N GLUCOSE (test code = GLU) 235 mg/dL 77-141 H BLOOD UREA NITROGEN (test code = BUN) 21 mg/dL 7-25 N GLOMERULAR FILTRATION RATE (test [...] 0.6-1.3 N CALCIUM (test code = CA) 7.9 mg/dL 8.0-10.5 L COMPREHENSIVE METABOLIC [id number] 06:17:00* Test Item Value Reference Range Interpretation Comme nts TOTAL PROTEIN (test code = PROT) 5.8 g/dL 5.7-8.2 N Note change in REFERENCE RANGE due to change in REAGENT. ALBUMIN (test code = ALB) 2.40 g/dL 3.4-5.0 L BILIRUBIN TOTAL (test code = BILT) 0.30 mg/dL 0.0-1.0 N SGOT/AST (test code = AST) 60 IUnit/L 8-34 H SGPT/ALT (test code = ALT) 71 IUnit/L 10-49 H ALKALINE PHOSPHATASE TOTAL (test code = ALKP) 102 IUnit/L 20-125 N CBC W/AUTO [id number] 05:38:00* Test Item Value Reference Range Interpretation Comme nts WHITE BLOOD CELL (test code = WBC) 4.4 x10 3/uL 4.5-11.0 L RED BLOOD CELL (test code = RBC) 2.83 x10 6/uL 3.54-5.02 L HEMOGLOBIN (test code = HGB) 7.0 g/dL 11.0-15.0 L HEMATOCRIT (test code = HCT) 23.7 % 33.0-45.0 L MEAN CELL VOLUME (test code = MCV) 83.7 fL 81.0-99.0 N MEAN CELL HGB (test code = MCH) 24.7 pg 27.0-33.0 L MEAN CELL HGB CONCETRATION (test code = MCHC) 29.5 g/dL 33.0-37.0 L RED CELL DISTRIBUTION WIDTH CV (test code = RDW) 19.1 % 11.5-14.5 H RED CELL DISTRIBUTION WIDTH SD (test code = RDW-SD) 57.0 fL 37.0-54.0 H PLATELET COUNT (test code = PLT) 169 x10 3/uL 150-400 N MEAN PLATELET VOLUME (test c ode = MPV) 11.1 fL 7.0-9.0 H NEUTROPHIL % (test code = NT%) 67.1 % 56.0-77.0 N IMMATURE GRANULOCYTE % (test code = IG%) 0.7 % 0.0-2.0 N LYMPHOCYTE % (test code = LY%) 15.8 % 14.0-32.0 N MONOCYTE % (test code = MO%) 11.5 % 4.8-9.0 H EOSINOPHIL % (test code = EO%) 4.4 % 0.3-3.7 H BASOPHIL % (test code = BA%) 0.5 % 0.0-2.0 N NUCLEATED RBC % (test code = NRBC%) 0.0 % 0-0 N NEUTROPHIL # (test code = NT#) 2.93 x10 3/uL 2.0-7.6 N IMMATURE GRANULOCYTE # (test code = IG#) 0.03 x10 3/uL 0.00-0.03 N LYMPHOCYTE # (test code = LY#) 0.69 x10 3/uL 1.0-3.8 L MONOCYTE # (test code = MO#) 0.50 x10 3/uL 0.1-0.8 N EOSINOPHIL # (test code = EO#) 0.19 x10 3/uL 0.0-0.2 N BASOPHIL # (test code = BA#) 0.02 x10 3/uL 0.0-0.2 N NUCLEATED RBC # (test code = NRBC#) 0.00 x10 3/uL 0.0-0.1 N GLUCOSE [id number] 21:19:00* Test Item Value Reference Range Interpretation Comme nts GLUCOSE BEDSIDE (test code = GLUBED) 236 MG/DL 70-110 H Performed by manju varma laser printing operator at [facility] B-TYPE NATRIURETIC [id number] 18:50:00* Test Item Value Reference Range Interpretation Comme [facility] B-TYPE NATRIURETIC PEPTIDE ( test code = BNP) 318.0 PG/ML 0-100 H PROTHROMBIN [id number] 18:39:00* Test Item Value Reference Range Interpretation Comme [facility] PROTHROMBIN TIME PATIENT (test code = PTP) 13.7 SECONDS 9.3-12.9 H INTERNATIONAL NORMAL RATIO (test [...] Acute Myocardial Infarction (to prevent recurrent infarct). COMPREHENSIVE METABOLIC [id number] 18:38:00* Test Item Value Reference Range Interpretation Comme nts SODIUM (test code = NA) 130 mEq/L 134-147 L POTASSIUM (test code = K) 5.0 mEq/L 3.4-5.0 N CHLORIDE (test code = CL) 97 mEq/L 100-108 L CARBON DIOXIDE (test code = CO2) 26 mEq/l 21-33 N ANION GAP (test code = GAP) 12 0-20 N GLUCOSE (test code = GLU) 158 mg/dL 77-141 H BLOOD UREA NITROGEN (test code = BUN) 24 mg/dL 7-25 N GLOMERULAR FILTRATION RATE (test code = GFR) 67.8 90-95 L The Glomerular Filtration Rate is [...] <18 years. CREATININE (test code = CREAT) 1.0 mg/dL 0.6-1.3 N TOTAL PROTEIN (test code = PROT) 6.7 g/dL 5.7-8.2 N Note change in REFERENCE RANGE due to change in REAGENT. ALBUMIN (test code = ALB) 2.90 g/dL 3.4-5.0 L CALCIUM (test code = CA) 8.6 mg/dL 8.0-10.5 N BILIRUBIN TOTAL (test code = BILT) 0.30 mg/dL 0.0-1.0 N SGOT/AST (test code = AST) 107 IUnit/L 8-34 H SGPT/ALT (test code = ALT) 91 IUnit/L 10-49 H ALKALINE PHOSPHATASE TOTAL (test code = ALKP) 122 IUnit/L 20-125 N [id number] 18:38:00* Test Item Value Reference Range Interpretation Comme nts MAGNESIUM (test code = MAG) 2.17 mg/dL 1.6-2.6 N CBC W/AUTO [id number] 18:32:00* Test Item Value Reference Range Interpretation Comme nts WHITE BLOOD CELL (test code = WBC) 7.8 x10 3/uL 4.5-11.0 RED BLOOD CELL (test code = RBC) 3.04 x10 6/uL 3.54-5.02 L HEMOGLOBIN (test code = HGB) 7.7 g/dL 11.0-15.0 L HEMATOCRIT (test code = HCT) 25.7 % 33.0-45.0 L MEAN CELL VOLUME (test code = MCV) 84.5 fL 81.0-99.0 N MEAN CELL HGB (test code = MCH) 25.3 pg 27.0-33.0 L MEAN CELL HGB CONCETRATION (test code = MCHC) 30.0 g/dL 33.0-37.0 L RED CELL DISTRIBUTION WIDTH CV (test code = RDW) 19.8 % 11.5-14.5 H RED CELL DISTRIBUTION WIDTH SD (test code = RDW-SD) 59.7 fL 37.0-54.0 H PLATELET COUNT (test code = PLT) 201 x10 3/uL 150-400 N MEAN PLATELET VOLUME (test c ode = MPV) 11.7 fL 7.0-9.0 H NEUTROPHIL % (test code = NT%) 74.8 % 56.0-77.0 N IMMATURE GRANULOCYTE % (test code = IG%) 0.5 % 0.0-2.0 N LYMPHOCYTE % (test code = LY%) 11.8 % 14.0-32.0 L MONOCYTE % (test code = MO%) 9.6 % 4.8-9.0 H EOSINOPHIL % (test code = EO%) 2.9 % 0.3-3.7 N BASOPHIL % (test code = BA%) 0.4 % 0.0-2.0 N NUCLEATED RBC % (test code = NRBC%) 0.0 % 0-0 N NEUTROPHIL # (test code = NT#) 5.85 x10 3/uL 2.0-7.6 N IMMATURE GRANULOCYTE # (test code = IG#) 0.04 x10 3/uL 0.00-0.03 H LYMPHOCYTE # (test code = LY#) 0.92 x10 3/uL 1.0-3.8 L MONOCYTE # (test code = MO#) 0.75 x10 3/uL 0.1-0.8 N EOSINOPHIL # (test code = EO#) 0.23 x10 3/uL 0.0-0.2 H BASOPHIL # (test code = BA#) 0.03 x10 3/uL 0.0-0.2 N NUCLEATED RBC # (test code = NRBC#) 0.00 x10 3/uL 0.0-0.1 N GLUCOSE [id number] 08:10:00* Test Item Value Reference Range Interpretation Comme [facility] GLUCOSE BEDSIDE (test code = GLUBED) 184 MG/DL 70-110 H Performed by cer tified laser printing operator at [facility] GLUCOSE [id number] 21:30:00* Test Item Value Reference Range Interpretation Comme [facility] GLUCOSE BEDSIDE (test code = GLUBED) 135 MG/DL 70-110 H Performed by cer tified laser printing operator at [facility] GLUCOSE [id number] 17:28:00* Test Item Value Reference Range Interpretation Comme nts GLUCOSE BEDSIDE (test code = GLUBED) 177 MG/DL 70-110 H Performed by cer tified laser printing operator at [facility] GLUCOSE [id number] 12:41:00* Test Item Value Reference Range Interpretation Comme nts GLUCOSE BEDSIDE (test code = GLUBED) 221 MG/DL 70-110 H Performed by [facility] tified laser printing operator at [facility] GLUCOSE [id number] 08:54:00* Test Item Value Reference Range Interpretation Comme nts GLUCOSE BEDSIDE (test code = GLUBED) 173 MG/DL 70-110 H Performed by cer tified laser printing operator at [facility] UNFRACT HEPARIN DEPEND PLT [id number] 07:53:00* Test Item Value Reference Range Interpretation Comme nts UNFRACT HEPARIN LOW DOSE (test code = UHDPABL) <1 % 0-20 UNFRACT HEPARIN HIGH DOSE (test code = UHDPABH) 3 % 0-20 UNFRACT HEPARIN RESULT (test code = UHDPABT) Comment See_Comment RACHELLE Result: NEGATIVECOMMENT: While these results argue against a diagnosis holhlekki-habnwar-rhxnhcfpm topenia (HIT), they do notcompletely exclude the [...] of high dose (100 IU/mL) heparin.Performed At: [address] [id number] Armstrong MD Ph:[phone] [Automated message] The system which generated this result transmitted reference range: (). The reference range was not used to interpret this result as normal/abnormal. SHORT SAMPLE.GLUCOSE [id number] 03:35:00* Test Item Value Reference Range Interpretation Comme nts GLUCOSE BEDSIDE (test code = GLUBED) 200 MG/DL 70-110 H Performed by cer tified laser printing operator at [facility] GLUCOSE [id number] 16:34:00* Test Item Value Reference Range Interpretation Comme nts GLUCOSE BEDSIDE (test code = GLUBED) 172 MG/DL 70-110 H Performed by cer tified laser printing operator at [facility] GLUCOSE [id number] 12:51:00* Test Item Value Reference Range Interpretation Comme nts GLUCOSE BEDSIDE (test code = GLUBED) 193 MG/DL 70-110 H Performed by cer tified laser printing operator at [facility] GLUCOSE [id number] 08:36:00* Test Item Value Reference Range Interpretation Comme nts GLUCOSE BEDSIDE (test code = GLUBED) 174 MG/DL 70-110 H Performed by cer tified laser printing operator at [facility] GLUCOSE [id number] 19:50:00* Test Item Value Reference Range Interpretation Comme nts GLUCOSE BEDSIDE (test code = GLUBED) 104 MG/DL 70-110 N Performed by cer tified laser printing operator at [facility] GLUCOSE [id number] 17:28:00* Test Item Value Reference Range Interpretation Comme nts GLUCOSE BEDSIDE (test code = GLUBED) 181 MG/DL 70-110 H Performed by cer tified laser printing operator at [facility] GLUCOSE [id number] 13:21:00* Test Item Value Reference Range Interpretation Comme nts GLUCOSE BEDSIDE (test code = GLUBED) 197 MG/DL 70-110 H Performed by cer tified laser printing operator at [facility] GLUCOSE [id number] 09:09:00* Test Item Value Reference Range Interpretation Comme nts GLUCOSE BEDSIDE (test code = GLUBED) 106 MG/DL 70-110 N Performed by cer tified laser printing operator at [facility] BASIC METABOLIC [id number] 03:49:00* Test Item Value Reference Range Interpretation [...] code = CA) 8.6 mg/dL 8.0-10.5 N [id number] 03:49:00* Test Item Value Reference Range Interpretation Comme nts MAGNESIUM (test code = MAG) 1.90 mg/dL 1.6-2.6 N CBC W/AUTO [id number] 03:31:00* Test Item Value Reference Range Interpretation [...] NRBC#) 0.00 x10 3/uL 0.0-0.1 N GLUCOSE [id number] 20:44:00* Test Item Value Reference Range Interpretation Comme nts GLUCOSE BEDSIDE (test code = GLUBED) 123 MG/DL 70-110 H Performed by cer tified laser printing operator at [facility] GLUCOSE [id number] 17:34:00* Test Item Value Reference Range Interpretation Comme nts GLUCOSE BEDSIDE (test code = GLUBED) 171 MG/DL 70-110 H Performed by cer tified laser printing operator at [facility] GLUCOSE [id number] 12:46:00* Test Item Value Reference Range Interpretation Comme nts GLUCOSE BEDSIDE (test code = GLUBED) 148 MG/DL 70-110 H Performed by cer tified laser printing operator at [facility] GLUCOSE [id number] 07:33:00* Test Item Value Reference Range Interpretation Comme nts GLUCOSE BEDSIDE (test code = GLUBED) 153 MG/DL 70-110 H Performed by cer tified laser printing operator at [facility] GLUCOSE [id number] 07:33:00* Test Item Value Reference Range Interpretation Comme nts GLUCOSE BEDSIDE (test code = GLUBED) 133 MG/DL 70-110 H Performed by cer tified laser printing operator at [facility] BASIC METABOLIC [id number] 05:53:00* Test Item Value Reference Range Interpretation [...] code = CA) 8.4 mg/dL 8.0-10.5 N [id number] 05:53:00* Test Item Value Reference Range Interpretation Comme nts MAGNESIUM (test code = MAG) 1.92 mg/dL 1.6-2.6 N CBC W/AUTO [id number] 05:35:00* Test Item Value Reference Range Interpretation [...] NRBC#) 0.00 x10 3/uL 0.0-0.1 N GLUCOSE [id number] 16:43:00* Test Item Value Reference Range Interpretation Comme nts GLUCOSE BEDSIDE (test code = GLUBED) 211 MG/DL 70-110 H Performed by cer tified laser printing operator at [facility] GLUCOSE [id number] 11:58:00* Test Item Value Reference Range Interpretation Comme nts GLUCOSE BEDSIDE (test code = GLUBED) 197 MG/DL 70-110 H Performed by cer tified laser printing operator at [facility] GLUCOSE [id number] 08:12:00* Test Item Value Reference Range Interpretation Comme nts GLUCOSE BEDSIDE (test code = GLUBED) 139 MG/DL 70-110 H Performed by [facility] tified laser printing operator at [facility] BASIC METABOLIC [id number] 06:27:00* Test Item Value Reference Range Interpretation [...] code = CA) 8.7 mg/dL 8.0-10.5 N [id number] 06:27:00* Test Item Value Reference Range Interpretation Comme nts MAGNESIUM (test code = MAG) 1.98 mg/dL 1.6-2.6 N CBC W/AUTO [id number] 06:05:00* Test Item Value Reference Range Interpretation [...] NRBC#) 0.00 x10 3/uL 0.0-0.1 N GLUCOSE [id number] 21:17:00* Test Item Value Reference Range Interpretation Comme nts GLUCOSE BEDSIDE (test code = GLUBED) 206 MG/DL 70-110 H Performed by [employer] laser printing operator at [facility] GLUCOSE [id number] 17:02:00* Test Item Value Reference Range Interpretation Comme nts GLUCOSE BEDSIDE (test code = GLUBED) 256 MG/DL 70-110 H Performed by [employer] laser printing operator at [facility] GLUCOSE [id number] 11:36:00* Test Item Value Reference Range Interpretation Comme nts GLUCOSE BEDSIDE (test code = GLUBED) 209 MG/DL 70-110 H Performed by [employer] laser printing operator at [facility] GLUCOSE [id number] 10:54:00* Test Item Value Reference Range Interpretation Comme nts GLUCOSE BEDSIDE (test code = GLUBED) 211 MG/DL 70-110 H Performed by [employer] laser printing operator at [facility] BASIC METABOLIC [id number] 07:41:00* Test Item Value Reference Range Interpretation [...] code = CA) 8.6 mg/dL 8.0-10.5 N [id number] 07:41:00* Test Item Value Reference Range Interpretation Comme nts MAGNESIUM (test code = MAG) 2.03 mg/dL 1.6-2.6 N CBC W/AUTO [id number] 06:43:00* Test Item Value Reference Range Interpretation [...] NRBC#) 0.00 x10 3/uL 0.0-0.1 N GLUCOSE [id number] 21:22:00* Test Item Value Reference Range Interpretation Comme nts GLUCOSE BEDSIDE (test code = GLUBED) 143 MG/DL 70-110 H Performed by cer tified laser printing operator at [facility] GLUCOSE [id number] 18:07:00* Test Item Value Reference Range Interpretation Comme nts GLUCOSE BEDSIDE (test code = GLUBED) 82 MG/DL 70-110 N Performed by cer tified laser printing operator at [facility] GLUCOSE [id number] 13:16:00* Test Item Value Reference Range Interpretation Comme nts GLUCOSE BEDSIDE (test code = GLUBED) 295 MG/DL 70-110 H Performed by cer tified laser printing operator at [facility] [id number] 11:58:00* Test Item Value Reference Range Interpretation Comments SURGICAL (test code = SR) RUN DATE: 11/14/24 [place] - LAB PAGE 1 RUN TIME: 1158 Specimen Inquiry RUN USER: INTERFACE PATIENT: YUNIER PRATT LOC: [facility] U #: [id number] AGE/SX: 54/F ROOM: [facility] RE11/08/24REG DR: Leyda Trotter MD : 72 BED: 1 DIS: STATUS: ADM IN TLOC: SPEC #: [id number] RECD: 11/12/24 STATUS: ELIAN JANSEN #: [id number] PANCHO: 11/09/24- SUBM DR: Antoinette Ross MD ENTERED: 11/12/24-948 SP TYPE: SURGICAL OTHR DR: No Primary or Family Physician Self Referred Sharon Lindquist MD, Hannan H MD Hatmaker, Daniel C NP Howard, Lauren DO Jacques,Haroonur MD Anant-Caren,Jean Claude Man,Dayanara PEPE [id number]: [id number], ANATOMIC SPEC COPIES TO: No Primary or Family Physician Self Referred Sharon Lindquist MD [address] [phone] Antoinette Ross MD [address] [place] [address] Alejandro Cabrera NP [address] [place] [address] Angela Aceves DO [address] [place] [address] [place] [address] [facility] [address] [phone] CONTINUED ON NEXT PAGE RUN DATE: 11/14/24 [facility] PAGE 2 RUN TIME: 1158 Specimen Inquiry RUN USER: INTERFACE SPEC #: [id number] PATIENT: YUNIER PRATT #[id number] (Continued) - COPIES TO: (Continued) Jean Claude Smith MD [address] [place] [address] Dayanara Man MD R1 [address] [place] [id number] PROCEDURES: [id number] (11/12/24) TISSUES: A. ATRIUM - LEFT ATRIAL APPENDAGE CLINICAL HISTORY SAME FINAL DIAGNOSIS Heart, left atrial appendage, wedge biopsy: - Myocardium with focal mild ischemic change. GROSS DESCRIPTION Received in formalin labeled "left atrial appendage" is a kaur-red atrial appendagemeasuring up to 4.1 cm. The specimen is serially sectioned and no gross lesions areidentified. Duplicating Machine Operator sections are submitted in cassette A. Technical component performed at [facility],[address] [place] [id number] Unless gross only, the diagnosis is based [...] INFORMATION MULTIVESSEL DISEASE Signed SIGNATURE ON FILE Greg Longaudra 11/14/24 1158 END OF REPORT BASIC METABOLIC [id number] 11:11:00* Test Item Value Reference Range Interpretation [...] code = CA) 8.7 mg/dL 8.0-10.5 N [id number] 11:11:00* Test Item Value Reference Range Interpretation Comme nts MAGNESIUM (test code = MAG) 1.99 mg/dL 1.6-2.6 N CBC W/AUTO [id number] 10:56:00* Test Item Value Reference Range Interpretation [...] NRBC#) 0.00 x10 3/uL 0.0-0.1 N GLUCOSE [id number] 08:42:00* Test Item Value Reference Range Interpretation Comme nts GLUCOSE BEDSIDE (test code = GLUBED) 128 MG/DL 70-110 H Performed by cer tified laser printing operator at [facility] GLUCOSE [id number] 00:23:00* Test Item Value Reference Range Interpretation Comme nts GLUCOSE BEDSIDE (test code = GLUBED) 93 MG/DL 70-110 N Performed by cer tified laser printing operator at [facility] GLUCOSE [id number] 22:53:00* Test Item Value Reference Range Interpretation Comme nts GLUCOSE BEDSIDE (test code = GLUBED) 213 MG/DL 70-110 H Performed by cer tified laser printing operator at [facility] GLUCOSE [id number] 16:59:00* Test Item Value Reference Range Interpretation Comme nts GLUCOSE BEDSIDE (test code = GLUBED) 85 MG/DL 70-110 N Performed by cer tified laser printing operator at [facility] GLUCOSE [id number] 12:00:00* Test Item Value Reference Range Interpretation Comme nts GLUCOSE BEDSIDE (test code = GLUBED) 212 MG/DL 70-110 H Performed by cer tified laser printing operator at [facility] GLUCOSE [id number] 08:26:00* Test Item Value Reference Range Interpretation Comme nts GLUCOSE BEDSIDE (test code = GLUBED) 287 MG/DL 70-110 H Performed by cer tified laser printing operator at [facility] BASIC METABOLIC [id number] 06:34:00* Test Item Value Reference Range Interpretation [...] code = CA) 8.4 mg/dL 8.0-10.5 N [id number] 06:34:00* Test Item Value Reference Range Interpretation Comme nts MAGNESIUM (test code = MAG) 1.74 mg/dL 1.6-2.6 N CBC W/AUTO [id number] 06:00:00* Test Item Value Reference Range Interpretation [...] 0.00 x10 3/uL 0.0-0.1 N HEPARIN INDUCED [id number] 23:31:00* Test Item Value Reference Range Interpretation Comme nts HEPARIN INDUCED THROMBOCYTOPEN (test code = HITAB) POSITIVE A Critical Value r eported toFirst Name:HARDIK Last Name:BETHANIE READ BACK AND VERIFIEDby [id number], on 11/12/24, @ 3668.The HIT (PF4) test is a qualitative, fully automated lateximmunoassay that detects, IgG, IgM and IgA associatedantibodies and is used as a primary screening assay for thedetection of Platelet Factor 4 Heparin-Dependent Antibodies.Positive or negative is the final interpreted result. Thepositive or negative result should be used with otherinformation, including the clinical context, in forming adiagnosis such as the 4T score and the 2013 [place] [employer] guidelines. NEGATIVE results indicate the [...] heparin for at least4 hours. HEPARIN INDUCED [id number] 23:31:00* Test Item Value Reference Range Interpretation Comme nts HEPARIN INDUCED THROMBOCYTOPEN (test code = HITAB) POSITIVE See_Comment A Critical Value r eported toFirst Name:HARDIK Last Name:BETHANIE READ BACK AND VERIFIEDby [id number], on 11/12/24, @ 0991.The HIT (PF4) test is a qualitative, fully automated lateximmunoassay that detects, IgG, IgM and IgA associatedantibodies and is used as a primary screening assay for thedetection of Platelet Factor 4 Heparin-Dependent Antibodies.Positive or negative is the final interpreted result. Thepositive or negative result should be used with otherinformation, including the clinical context, in forming adiagnosis such as the 4T score and the 2013 [place] [employer] guidelines. NEGATIVE results indicate the [...] to interpret this result as normal/abnormal. GLUCOSE [id number] 20:51:00* Test Item Value Reference Range Interpretation Comme nts GLUCOSE BEDSIDE (test code = GLUBED) 229 MG/DL 70-110 H Performed by cer tified laser printing operator at [facility] GLUCOSE [id number] 16:56:00* Test Item Value Reference Range Interpretation Comme nts GLUCOSE BEDSIDE (test code = GLUBED) 141 MG/DL 70-110 H Performed by cer tified laser printing operator at [facility] GLUCOSE [id number] 12:25:00* Test Item Value Reference Range Interpretation Comme nts GLUCOSE BEDSIDE (test code = GLUBED) 321 MG/DL 70-110 H Performed by [facility] tified laser printing operator at [facility] GLUCOSE [id number] 09:14:00* Test Item Value Reference Range Interpretation Comme nts GLUCOSE BEDSIDE (test code = GLUBED) 333 MG/DL 70-110 H Performed by cer tified laser printing operator at [facility] BASIC METABOLIC [id number] 06:20:00* Test Item Value Reference Range Interpretation [...] mg/dL 8.0-10.5 N COMMENTS: POD #1HEPATIC FUNCTION [id number] 06:20:00* Test Item Value Reference Range Interpretation [...] ALKP) 77 IUnit/L 20-125 N COMMENTS: POD #[id number] 06:20:00* Test Item Value Reference Range Interpretation Comme nts MAGNESIUM (test code = MAG) 1.72 mg/dL 1.6-2.6 N COMMENTS: POD #1CBC W/AUTO [id number] 04:22:00* Test Item Value Reference Range Interpretation [...] NRBC#) 0.00 x10 3/uL 0.0-0.1 N GLUCOSE [id number] 23:57:00* Test Item Value Reference Range Interpretation Comme [facility] GLUCOSE BEDSIDE (test code = GLUBED) 241 MG/DL 70-110 H Performed by cer [employer] laser printing operator at [facility] GLUCOSE [id number] 19:33:00* Test Item Value Reference Range Interpretation Comme [facility] GLUCOSE BEDSIDE (test code = GLUBED) 227 MG/DL 70-110 H Performed by cer tified laser printing operator at [facility] BASIC METABOLIC [id number] 18:12:00* Test Item Value Reference Range Interpretation [...] code = CA) 8.7 mg/dL 8.0-10.5 N [id number] 18:12:00* Test Item Value Reference Range Interpretation Comme nts MAGNESIUM (test code = MAG) 1.61 mg/dL 1.6-2.6 N GLUCOSE [id number] 16:43:00* Test Item Value Reference Range Interpretation Comme nts GLUCOSE BEDSIDE (test code = GLUBED) 185 MG/DL 70-110 H Performed by cer tified laser printing operator at [facility] GLUCOSE [id number] 11:39:00* Test Item Value Reference Range Interpretation Comme nts GLUCOSE BEDSIDE (test code = GLUBED) 371 MG/DL 70-110 H Performed by cer tified laser printing operator at [facility] GLUCOSE [id number] 08:34:00* Test Item Value Reference Range Interpretation Comme nts GLUCOSE BEDSIDE (test code = GLUBED) 270 MG/DL 70-110 H Performed by manju [employer] laser printing operator at [facility] BASIC METABOLIC [id number] 04:27:00* Test Item Value Reference Range Interpretation [...] mg/dL 8.0-10.5 N COMMENTS: POD #1HEPATIC FUNCTION [id number] 04:27:00* Test Item Value Reference Range Interpretation [...] ALKP) 73 IUnit/L 20-125 N COMMENTS: POD #[id number] 04:27:00* Test Item Value Reference Range Interpretation Comme nts MAGNESIUM (test code = MAG) 1.76 mg/dL 1.6-2.6 N COMMENTS: POD #1CBC W/AUTO [id number] 04:10:00* Test Item Value Reference Range Interpretation [...] NRBC#) 0.00 x10 3/uL 0.0-0.1 N GLUCOSE [id number] 19:46:00* Test Item Value Reference Range Interpretation Comme nts GLUCOSE BEDSIDE (test code = GLUBED) 135 MG/DL 70-110 H Performed by cer tified laser printing operator at [facility] GLUCOSE [id number] 11:34:00* Test Item Value Reference Range Interpretation Comme nts GLUCOSE BEDSIDE (test code = GLUBED) 124 MG/DL 70-110 H Performed by [employer] tified laser printing operator at [facility] GLUCOSE [id number] 07:32:00* Test Item Value Reference Range Interpretation Comme nts GLUCOSE BEDSIDE (test code = GLUBED) 153 MG/DL 70-110 H Performed by [employer] laser printing operator at [facility] GLUCOSE [id number] 06:27:00* Test Item Value Reference Range Interpretation Comme nts GLUCOSE BEDSIDE (test code = GLUBED) 187 MG/DL 70-110 H Performed by [employer] laser printing operator at [facility] POC ARTERIAL BLOOD [id number] 05:22:00* Test Item Value Reference Range Interpretation Comme nts POC ARTERIAL BLOOD GAS PH (test code = POCPHA) 7.359 7.35-7.45 N POC ARTERIAL BLOOD GAS PCO2 (test code = JWBEGW3X) 45.0 mmHg 35.0-45 N POC TCO2 ARTERIAL (test code = POCTCO2) 26.8 22-29 N POC ARTERIAL BLOOD GAS PO2 (test code = FZXBZ3X) 88.9 mmHg 80-100.0 N POC HCO3 ARTERIAL (test code = SDAFQK2O) 25.4 MMOL/L 22.0-26.0 N POC BASE EXCESS [...] code = SITEA) Art [employer] BASIC METABOLIC [id number] 05:22:00* Test Item Value Reference Range Interpretation [...] = POCGLU) 175 MG/DL 70-110 H HEMOGLOBIN [id number] 05:22:00* Test Item Value Reference Range Interpretation Comme nts HEMOGLOBIN ABG (test code = HGB/ABG) 7.8 G/DL 11.0-15.0 L [id number] 05:22:00* Test Item Value Reference Range Interpretation Comme nts HEMATOCRIT (test code = HCT/ABG) 23 % 33-45 L CBC W/AUTO [id number] 03:16:00* Test Item Value Reference Range Interpretation [...] NRBC#) 0.00 x10 3/uL 0.0-0.1 N PLT [id number] 03:16:00* Test Item Value Reference Range Interpretation Comme nts PLATELET ESTIMATE (test code = PLTEST) 99 x10 3/uL 150-400 L PLATELET MORPHOLOGY (test co de = PLTMORPH) NORMAL BASIC METABOLIC [id number] 02:34:00* Test Item Value Reference Range Interpretation [...] mg/dL 8.0-10.5 N COMMENTS: POD #1HEPATIC FUNCTION [id number] 02:34:00* Test Item Value Reference Range Interpretation [...] ALKP) 65 IUnit/L 20-125 N COMMENTS: POD #[id number] 02:34:00* Test Item Value Reference Range Interpretation Comme nts MAGNESIUM (test code = MAG) 2.14 mg/dL 1.6-2.6 N COMMENTS: POD #1POC ARTERIAL BLOOD [id number] 02:11:00* Test Item Value Reference Range Interpretation Comme nts POC ARTERIAL BLOOD GAS PH (test code = POCPHA) 7.353 7.35-7.45 N POC ARTERIAL BLOOD GAS PCO2 (test code = HBYGVZ0Q) 50.9 mmHg 35.0-45 HH POC TCO2 ARTERIAL (test code = POCTCO2) 29.9 22-29 H POC ARTERIAL BLOOD GAS PO2 (test code = HHCGE3Y) 169.9 mmHg 80-100.0 H POC HCO3 ARTERIAL (test code = XBTWGS7Y) 28.3 MMOL/L 22.0-26.0 HH POC BASE EXCESS (test code = POCBEA) 2.8 MMOL/L See_Comment N [Automated [employer]] The system which generated this result transmitted reference range: 0-+/-4. The reference range was not used to interpret this result as normal/abnormal. POC O2 SATURATION (test code = POCO2S) 99.4 % 90-100 N ABG DELIVERY (test code = ESTHER) Cannula ABG TEMPERATURE (test code = TEMPA) 98.2 F ABG SITE (test code = SITEA) Art Line BASIC METABOLIC [id number] 02:11:00* Test Item Value Reference Range Interpretation [...] = POCGLU) 120 MG/DL 70-110 H HEMOGLOBIN [id number] 02:11:00* Test Item Value Reference Range Interpretation Comme nts HEMOGLOBIN ABG (test code = HGB/ABG) 7.3 G/DL 11.0-15.0 L [id number] 02:11:00* Test Item Value Reference Range Interpretation Comme nts HEMATOCRIT (test code = HCT/ABG) 21 % 33-45 L POC ARTERIAL BLOOD [id number] 00:17:00* Test Item Value Reference Range Interpretation Comme nts POC ARTERIAL BLOOD GAS PH (test code = POCPHA) 7.320 7.35-7.45 L POC ARTERIAL BLOOD GAS PCO2 (test code = NUHIFU2B) 50.6 mmHg 35.0-45 HH POC TCO2 ARTERIAL (test code = POCTCO2) 27.6 22-29 N POC ARTERIAL BLOOD GAS PO2 (test code = SUJXL2X) 229.7 mmHg 80-100.0 HH POC HCO3 ARTERIAL (test code = MQZVWI5F) 26.1 MMOL/L 22.0-26.0 H POC BASE EXCESS [...] code = SITEA) Art Line BASIC METABOLIC [id number] 00:17:00* Test Item Value Reference Range Interpretation [...] = POCGLU) 141 MG/DL 70-110 H HEMOGLOBIN [id number] 00:17:00* Test Item Value Reference Range Interpretation Comme [facility] HEMOGLOBIN ABG (test code = HGB/ABG) 7.3 G/DL 11.0-15.0 L [id number] 00:17:00* Test Item Value Reference Range Interpretation Comme nts HEMATOCRIT (test code = HCT/ABG) 22 % 33-45 L GLUCOSE [id number] 00:12:00* Test Item Value Reference Range Interpretation Comme [facility] GLUCOSE BEDSIDE (test code = GLUBED) 127 MG/DL 70-110 H Performed by [employer] laser printing operator at [facility] [id number] 22:55:00* Test Item Value Reference Range Interpretation Comme nts R-TIME (test code = RTIME) 5.9 min 4.6-9.1 N K-TIME (test code = KTIME) 1.2 min 0.8-2.1 N ANGLE (test code = ANG) 74.0 degrees 63-78 N MAXIMUM AMPLITUDE (test code = MA) 59.6 mm 52-69 N TEG [employer] RAP MAXIMUM AMPLITUD E (test code = CRTMA) 61.4 mm 52-70 N TEG CIT KOALIN HEPARINASE CT (test code = CKHR) 5.4 mins 4.3-8.3 N Citrated FUNC FIB MAX AMP (t est code = CFFMA) 19.1 mm 15-32 N CIT FUNCTIONAL FIB ESTIMATED (test code = CFFFLEV) 348.5 mg/dL 278-581 N GLUCOSE [id number] 22:21:00* Test Item Value Reference Range Interpretation Comme [facility] GLUCOSE BEDSIDE (test code = GLUBED) 143 MG/DL 70-110 H Performed by cer [employer] laser printing operator at [facility] PROTHROMBIN [id number] 21:05:00* Test Item Value Reference Range Interpretation Comme [facility] PROTHROMBIN TIME PATIENT (test code = PTP) [...] Infarction (to prevent recurrent infarct). THROMBOPLASTIN TIME [id number] 21:05:00* Test Item Value Reference Range Interpretation Comme nts THROMBOPLASTIN TIME PARTIAL (test code = PTT) 26.6 Seconds 25.0-39.5 N Therapeutic Rang e: 58.8 - 96.0 Seconds Effective 06/15/2024 POC ARTERIAL BLOOD [id number] 19:50:00* Test Item Value Reference Range Interpretation Comme nts POC ARTERIAL BLOOD GAS PH (test code = POCPHA) 7.338 7.35-7.45 L POC ARTERIAL BLOOD GAS PCO2 (test code = VKTXLG1Q) 51.0 mmHg 35.0-45 HH POC TCO2 ARTERIAL (test code = POCTCO2) 29.0 22-29 N POC ARTERIAL BLOOD GAS PO2 (test code = RKIQX7L) 120.6 mmHg 80-100.0 H POC HCO3 ARTERIAL (test code = ATTFWE3T) 27.4 MMOL/L 22.0-26.0 H POC BASE EXCESS (test code = POCBEA) 1.6 MMOL/L See_Comment N [Automated [employer]] The system which generated this result transmitted reference range: 0-+/-4. The reference range was not used to interpret this result as normal/abnormal. POC O2 SATURATION (test code = POCO2S) 98.4 % 90-100 N ABG DELIVERY (test code = ESTHER) Cannula ABG TEMPERATURE (test code = TEMPA) 98.4 F ABG SITE (test code = SITEA) Art Line BASIC METABOLIC [id number] 19:50:00* Test Item Value Reference Range Interpretation [...] = POCGLU) 152 MG/DL 70-110 H HEMOGLOBIN [id number] 19:50:00* Test Item Value Reference Range Interpretation Comme nts HEMOGLOBIN ABG (test code = HGB/ABG) 8.7 G/DL 11.0-15.0 L [id number] 19:50:00* Test Item Value Reference Range Interpretation Comme nts HEMATOCRIT (test code = HCT/ABG) 25 % 33-45 L BASIC METABOLIC [id number] 19:26:00* Test Item Value Reference Range Interpretation [...] mg/dL 8.0-10.5 N COMMENTS: On arrivalComment: On [id number] 19:26:00* Test Item Value Reference Range Interpretation Comme nts MAGNESIUM (test code = MAG) 2.30 mg/dL 1.6-2.6 COMMENTS: On arrivalComment: On arrivalPROTHROMBIN [id number] 19:16:00* Test Item Value Reference Range Interpretation [...] prevent recurrent infarct). COMMENTS: On arrivalTHROMBOPLASTIN TIME [id number] 19:16:00* Test Item Value Reference Range Interpretation Comme nts THROMBOPLASTIN TIME PARTIAL (test code = PTT) 25.1 Seconds 25.0-39.5 Therapeutic Rang e: 58.8 - 96.0 Seconds Effective 06/15/2024 COMMENTS: On arrivalCBC W/AUTO [id number] 18:46:00* Test Item Value Reference Range Interpretation [...] 0.00 x10 3/uL 0.0-0.1 N COMMENTS: [facility] [id number] 18:38:00* Test Item Value Reference Range Interpretation Comme nts POC ARTERIAL BLOOD GAS PH (test code = POCPHA) 7.310 7.35-7.45 L POC ARTERIAL BLOOD GAS PCO2 (test code = IRFHOT0U) 60.3 mmHg 35.0-45 HH POC TCO2 ARTERIAL (test code = POCTCO2) 32.2 22-29 H POC ARTERIAL BLOOD GAS PO2 (test code = UYNMK8H) 115.3 mmHg 80-100.0 H POC HCO3 ARTERIAL (test code = PBPSGS6F) 30.4 MMOL/L 22.0-26.0 HH POC BASE EXCESS (test code = POCBEA) 4.1 MMOL/L See_Comment H [Automated messa ge] The system which generated this result transmitted reference range: 0-+/-4. The reference range was not used to interpret this result as normal/abnormal. POC O2 SATURATION (test code = POCO2S) 97.9 % 90-100 N FIO2 (test code = FIO2A) 60.0 % PaO2/FiO2 (test code = TIQ0ULX5) 192.10 mm/Hg ABG DELIVERY (test code = ESTHER) simple mask ABG TEMPERATURE (test code = TEMPA) 98.4 F ABG SITE (test code = SITEA) Art Line TERESO'S TEST (test code = ALLENS) N/A BASIC METABOLIC [id number] 18:38:00* Test Item Value Reference Range Interpretation [...] = POCGLU) 151 MG/DL 70-110 H HEMOGLOBIN [id number] 18:38:00* Test Item Value Reference Range Interpretation Comme nts HEMOGLOBIN ABG (test code = HGB/ABG) 8.3 G/DL 11.0-15.0 L [id number] 18:38:00* Test Item Value Reference Range Interpretation Comme nts HEMATOCRIT (test code = HCT/ABG) 24 % 33-45 L POC LACTIC [id number] 18:38:00* Test Item Value Reference Range Interpretation Comme nts POC LACTIC ACID (test code = POCLAC) 1.6 mmol/l 0.9-1.7 N [id number] 17:44:00* Test Item Value Reference Range Interpretation Comme nts ACT-ISTAT (test code = ACTI) 106 SEC 74-137 N Performed by cer tified laser printing operator at [facility] POC ARTERIAL BLOOD [id number] 17:41:00* Test Item Value Reference Range Interpretation Comme nts POC ARTERIAL BLOOD GAS PH (test code = POCPHA) 7.448 7.35-7.45 N POC ARTERIAL BLOOD GAS PCO2 (test code = LTRUMN0D) 34.2 mmHg 35.0-45 L POC TCO2 ARTERIAL (test code = POCTCO2) 24.7 22-29 N POC ARTERIAL BLOOD GAS PO2 (test code = SYWZI9V) 99.5 mmHg 80-100.0 N POC HCO3 ARTERIAL (test code = KWNNPA0F) 23.7 MMOL/L 22.0-26.0 N POC BASE EXCESS (test code = POCBEA) -0.2 MMOL/L See_Comment L [Automated messa ge] The system which generated this result transmitted reference range: 0-+/-4. The reference range was not used to interpret this result as normal/abnormal. POC O2 SATURATION (test code = POCO2S) 98.1 % 90-100 N BASIC METABOLIC [id number] 17:41:00* Test Item Value Reference Range Interpretation [...] = POCGLU) 139 MG/DL 70-110 H HEMOGLOBIN [id number] 17:41:00* Test Item Value Reference Range Interpretation Comme nts HEMOGLOBIN ABG (test code = HGB/ABG) 7.4 G/DL 11.0-15.0 L [id number] 17:41:00* Test Item Value Reference Range Interpretation Comme nts HEMATOCRIT (test code = HCT/ABG) 22 % 33-45 L POC LACTIC [id number] 17:41:00* Test Item Value Reference Range Interpretation Comme nts POC LACTIC ACID (test code = POCLAC) 1.9 mmol/l 0.9-1.7 H [id number] 17:30:00* Test Item Value Reference Range Interpretation Comme nts ACT-ISTAT (test code = ACTI) 579 SEC 74-137 H Performed by cer [employer] laser printing operator at [facility] POC ARTERIAL BLOOD [id number] 17:22:00* Test Item Value Reference Range Interpretation Comme nts POC ARTERIAL BLOOD GAS PH (test code = POCPHA) 7.386 7.35-7.45 N POC ARTERIAL BLOOD GAS PCO2 (test code = YOKVZE3C) 42.2 mmHg 35.0-45 N POC TCO2 ARTERIAL (test code = POCTCO2) 26.6 22-29 N POC ARTERIAL BLOOD GAS PO2 (test code = TVYIN4G) 477.9 mmHg 80-100.0 HH POC HCO3 ARTERIAL (test code = ZSEKBH6W) 25.3 MMOL/L 22.0-26.0 N POC BASE EXCESS (test code = POCBEA) 0.2 MMOL/L See_Comment N [Automated messa ge] The system which generated this result transmitted reference range: 0-+/-4. The reference range was not used to interpret this result as normal/abnormal. POC O2 SATURATION (test code = POCO2S) 100.0 % 90-100 N BASIC METABOLIC [id number] 17:22:00* Test Item Value Reference Range Interpretation [...] = POCGLU) 138 MG/DL 70-110 H HEMOGLOBIN [id number] 17:22:00* Test Item Value Reference Range Interpretation Comme nts HEMOGLOBIN ABG (test code = HGB/ABG) 7.9 G/DL 11.0-15.0 L [id number] 17:22:00* Test Item Value Reference Range Interpretation Comme nts HEMATOCRIT (test code = HCT/ABG) 23 % 33-45 L POC LACTIC [id number] 17:22:00* Test Item Value Reference Range Interpretation Comme nts POC LACTIC ACID (test code = POCLAC) 1.5 mmol/l 0.9-1.7 N [id number] 17:03:00* Test Item Value Reference Range Interpretation Comme nts ACT-ISTAT (test code = ACTI) 458 SEC 74-137 H Performed by cer tified laser printing operator at [facility] POC ARTERIAL BLOOD [id number] 16:53:00* Test Item Value Reference Range Interpretation Comme nts POC ARTERIAL BLOOD GAS PH (test code = POCPHA) 7.390 7.35-7.45 N POC ARTERIAL BLOOD GAS PCO2 (test code = AGCGHD8E) 42.1 mmHg 35.0-45 N POC TCO2 ARTERIAL (test code = POCTCO2) 26.8 22-29 N POC ARTERIAL BLOOD GAS PO2 (test code = ZGWWX6O) 407.2 mmHg 80-100.0 HH POC HCO3 ARTERIAL (test code = NITUVZ7X) 25.5 MMOL/L 22.0-26.0 N POC BASE EXCESS (test code = POCBEA) 0.5 MMOL/L See_Comment N [Automated messa ge] The system which generated this result transmitted reference range: 0-+/-4. The reference range was not used to interpret this result as normal/abnormal. POC O2 SATURATION (test code = POCO2S) 100.0 % 90-100 N BASIC METABOLIC [id number] 16:53:00* Test Item Value Reference Range Interpretation [...] = POCGLU) 147 MG/DL 70-110 H HEMOGLOBIN [id number] 16:53:00* Test Item Value Reference Range Interpretation Comme nts HEMOGLOBIN ABG (test code = HGB/ABG) 6.9 G/DL 11.0-15.0 L [id number] 16:53:00* Test Item Value Reference Range Interpretation Comme nts HEMATOCRIT (test code = HCT/ABG) 20 % 33-45 L POC LACTIC [id number] 16:53:00* Test Item Value Reference Range Interpretation Comme nts POC LACTIC ACID (test code = POCLAC) 1.5 mmol/l 0.9-1.7 N [id number] 16:30:00* Test Item Value Reference Range Interpretation Comme nts ACT-ISTAT (test code = ACTI) 619 SEC 74-137 H Performed by cer tified laser printing operator at [facility] POC ARTERIAL BLOOD [id number] 16:22:00* Test Item Value Reference Range Interpretation Comme nts POC ARTERIAL BLOOD GAS PH (test code = POCPHA) 7.463 7.35-7.45 H POC ARTERIAL BLOOD GAS PCO2 (test code = AXFZRT5P) 40.0 mmHg 35.0-45 N POC TCO2 ARTERIAL (test code = POCTCO2) 29.8 22-29 H POC ARTERIAL BLOOD GAS PO2 (test code = SVJMI4C) 449.1 mmHg 80-100.0 HH POC HCO3 ARTERIAL (test code = GCZMOV2F) 28.6 MMOL/L 22.0-26.0 HH POC BASE EXCESS (test code = POCBEA) 4.4 MMOL/L See_Comment H [Automated messa ge] The system which generated this result transmitted reference range: 0-+/-4. The reference range was not used to interpret this result as normal/abnormal. POC O2 SATURATION (test code = POCO2S) 100.0 % 90-100 N BASIC METABOLIC [id number] 16:22:00* Test Item Value Reference Range Interpretation [...] = POCGLU) 160 MG/DL 70-110 H HEMOGLOBIN [id number] 16:22:00* Test Item Value Reference Range Interpretation Comme nts HEMOGLOBIN ABG (test code = HGB/ABG) 7.3 G/DL 11.0-15.0 L [id number] 16:22:00* Test Item Value Reference Range Interpretation Comme nts HEMATOCRIT (test code = HCT/ABG) 22 % 33-45 L POC LACTIC [id number] 16:22:00* Test Item Value Reference Range Interpretation Comme nts POC LACTIC ACID (test code = POCLAC) 0.9 mmol/l 0.9-1.7 N [id number] 16:01:00* Test Item Value Reference Range Interpretation Comme nts ACT-ISTAT (test code = ACTI) 498 SEC 74-137 H Performed by cer tified laser printing operator at [facility] POC ARTERIAL BLOOD [id number] 15:55:00* Test Item Value Reference Range Interpretation Comme nts POC ARTERIAL BLOOD GAS PH (test code = POCPHA) 7.429 7.35-7.45 N POC ARTERIAL BLOOD GAS PCO2 (test code = CLRMYV9J) 39.3 mmHg 35.0-45 N POC TCO2 ARTERIAL (test code = POCTCO2) 27.3 22-29 N POC ARTERIAL BLOOD GAS PO2 (test code = PCBOK5I) 229.4 mmHg 80-100.0 HH POC HCO3 ARTERIAL (test code = OESKEE2H) 26.1 MMOL/L 22.0-26.0 H POC BASE EXCESS (test code = POCBEA) 1.6 MMOL/L See_Comment N [Automated messa ge] The system which generated this result transmitted reference range: 0-+/-4. The reference range was not used to interpret this result as normal/abnormal. POC O2 SATURATION (test code = POCO2S) 99.8 % 90-100 N BASIC METABOLIC [id number] 15:55:00* Test Item Value Reference Range Interpretation [...] = POCGLU) 195 MG/DL 70-110 H HEMOGLOBIN [id number] 15:55:00* Test Item Value Reference Range Interpretation Comme nts HEMOGLOBIN ABG (test code = HGB/ABG) 8.8 G/DL 11.0-15.0 L [id number] 15:55:00* Test Item Value Reference Range Interpretation Comme nts HEMATOCRIT (test code = HCT/ABG) 26 % 33-45 L POC LACTIC [id number] 15:55:00* Test Item Value Reference Range Interpretation Comme nts POC LACTIC ACID (test code = POCLAC) 0.7 mmol/l 0.9-1.7 L [id number] 15:03:00* Test Item Value Reference Range Interpretation Comme nts ACT-ISTAT (test code = ACTI) 135 SEC 74-137 N Performed by cer tified laser printing operator at [facility] POC ARTERIAL BLOOD [id number] 14:54:00* Test Item Value Reference Range Interpretation Comme nts POC ARTERIAL BLOOD GAS PH (test code = POCPHA) 7.422 7.35-7.45 N POC ARTERIAL BLOOD GAS PCO2 (test code = GXUIXO5B) 38.5 mmHg 35.0-45 N POC TCO2 ARTERIAL (test code = POCTCO2) 26.3 22-29 N POC ARTERIAL BLOOD GAS PO2 (test code = HGREI8P) 545.9 mmHg 80-100.0 HH POC HCO3 ARTERIAL (test code = WKIOVJ8R) 25.1 MMOL/L 22.0-26.0 N POC BASE EXCESS (test code = POCBEA) 0.7 MMOL/L See_Comment N [Automated messa ge] The system which generated this result transmitted reference range: 0-+/-4. The reference range was not used to interpret this result as normal/abnormal. POC O2 SATURATION (test code = POCO2S) 100.0 % 90-100 N BASIC METABOLIC [id number] 14:54:00* Test Item Value Reference Range Interpretation [...] = POCGLU) 195 MG/DL 70-110 H HEMOGLOBIN [id number] 14:54:00* Test Item Value Reference Range Interpretation Comme nts HEMOGLOBIN ABG (test code = HGB/ABG) 8.3 G/DL 11.0-15.0 L [id number] 14:54:00* Test Item Value Reference Range Interpretation Comme nts HEMATOCRIT (test code = HCT/ABG) 24 % 33-45 L POC LACTIC [id number] 14:54:00* Test Item Value Reference Range Interpretation Comme nts POC LACTIC ACID (test code = POCLAC) < 0.3 mmol/l 0.9-1.7 L HCG SERUM [id number] 13:40:00* Test Item Value Reference Range Interpretation Comme nts HCG SERUM QUAL (test code = HCGQL) SERUM NEGATIVE NEGATIVE GLUCOSE [id number] 09:48:00* Test Item Value Reference Range Interpretation Comme nts GLUCOSE BEDSIDE (test code = GLUBED) 265 MG/DL 70-110 H Performed by cer tified laser printing operator at [facility] BASIC METABOLIC [id number] 02:20:00* Test Item Value Reference Range Interpretation [...] code = CA) 8.6 mg/dL 8.0-10.5 N [id number] 02:20:00* Test Item Value Reference Range Interpretation Comme nts MAGNESIUM (test code = MAG) 1.83 mg/dL 1.6-2.6 N PROTHROMBIN [id number] 02:13:00* Test Item Value Reference Range Interpretation [...] Infarction (to prevent recurrent infarct). THROMBOPLASTIN TIME [id number] 02:13:00* Test Item Value Reference Range Interpretation Comme nts THROMBOPLASTIN TIME PARTIAL (test code = PTT) 52.0 Seconds 25.0-39.5 H Therapeutic Rang e: 58.8 - 96.0 Seconds Effective 06/15/2024 CBC W/AUTO [id number] 01:52:00* Test Item Value Reference Range Interpretation [...] N COMMENTS: Daily while on heparin dripGLUCOSE [id number] 21:41:00* Test Item Value Reference Range Interpretation Comme nts GLUCOSE BEDSIDE (test code = GLUBED) 370 MG/DL 70-110 H Performed by cer [employer] laser printing operator at [facility] THROMBOPLASTIN TIME [id number] 18:00:00* Test Item Value Reference Range Interpretation Comme nts THROMBOPLASTIN TIME PARTIAL (test code = PTT) 47.9 Seconds 25.0-39.5 H Therapeutic Rang e: 58.8 - 96.0 Seconds Effective 06/15/2024 GLUCOSE [id number] 17:35:00* Test Item Value Reference Range Interpretation Comme nts GLUCOSE BEDSIDE (test code = GLUBED) 126 MG/DL 70-110 H Performed by cer tified laser printing operator at [facility] GLUCOSE [id number] 13:11:00* Test Item Value Reference Range Interpretation Comme nts GLUCOSE BEDSIDE (test code = GLUBED) 334 MG/DL 70-110 H Performed by cer tified laser printing operator at [facility] GLUCOSE [id number] 13:11:00* Test Item Value Reference Range Interpretation Comme nts GLUCOSE BEDSIDE (test code = GLUBED) 334 MG/DL 70-110 H Performed by cer tified laser printing operator at [facility] TROP-I HIGH [id number] 11:09:00* Test Item Value Reference Range Interpretation [...] the URL. These results were obtained using [employer] IM TnIHreagent. Results from different methodologies should not becompared to one another as quantitative results and URLs mayvary by method. THROMBOPLASTIN TIME [id number] 11:08:00* Test Item Value Reference Range Interpretation Comme [facility] THROMBOPLASTIN TIME PARTIAL (test code = PTT) 32.6 Seconds 25.0-39.5 N Therapeutic Rang e: 58.8 - 96.0 Seconds Effective 06/15/2024 GLUCOSE [id number] 09:30:00* Test Item Value Reference Range Interpretation Comme nts GLUCOSE BEDSIDE (test code = GLUBED) 209 MG/DL 70-110 H Performed by cer tified laser printing operator at [facility] UA RFLX MICR CULT IF [id number] 08:28:00* Test Item Value Reference Range Interpretation [...] culture: Flank PainSpecimen Description: CLEAN CATCHB-TYPE NATRIURETIC [id number] 07:52:00* Test Item Value Reference Range Interpretation Comme nts B-TYPE NATRIURETIC PEPTIDE ( test code = BNP) 687.0 PG/ML 0-100 H COMPREHENSIVE METABOLIC [id number] 07:43:00* Test Item Value Reference Range Interpretation [...] = LDL) 112.0 mg/dL 0-100 H <100 CYLYYEW15 0-129 NEAR OPTIMAL/ABOVE [id number] [id number] HIGH>VI=452 VERY HIGH*Guidelines provided by the National Cholesterol EducationProgram Adult Treatment Panel III TROP-I HIGH [id number] 07:43:00* Test Item Value Reference Range Interpretation [...] the URL. These results were obtained using [employer] IM TnIHreagent. Results from different methodologies should not becompared to one another as quantitative results and URLs mayvary by method. CBC W/AUTO [id number] 07:20:00* Test Item Value Reference Range Interpretation Comme [facility] WHITE BLOOD CELL (test code = WBC) [...] NRBC#) 0.00 x10 3/uL 0.0-0.1 N GLUCOSE [id number] 04:05:00* Test Item Value Reference Range Interpretation Comme nts GLUCOSE BEDSIDE (test code = GLUBED) 231 MG/DL 70-110 H Performed by cer [employer] laser printing operator at [facility] LIPOPROTEIN [id number] 03:44:00* Test Item Value Reference Range Interpretation Comme nts LIPOPROTEIN LDL (test code = LDL) 108.0 mg/dL 0-100 H <100 ODKKUYY23 0-129 NEAR OPTIMAL/ABOVE [id number] ADZIUVYVXL990-172 HIGH>IP=060 VERY HIGH*Guidelines provided by the National Cholesterol EducationProgram Adult Treatment Panel III HEPATIC FUNCTION [id number] 03:30:00* Test Item Value Reference Range Interpretation [...] 98 IUnit/L 20-125 N TSH REFLEX TO [id number] 03:30:00* Test Item Value Reference Range Interpretation Comme nts TSH REFLEX TO FT4 (test code = TSHREFLEX) 2.39 IU/mL 0.42-5.47 N TROP-I HIGH [id number] 03:30:00* Test Item Value Reference Range Interpretation Comme nts TROP-I HIGH SENSITIVITY (test code = TROPIHS) 1099 ng/L 0-34 HH Critical result called to TAO Dumas [id number] at 0326 11/08/24Nurse read back result and [...] URL. These results were obtained using [employer] IM TnIHreagent. Results from different methodologies should not becompared to one another as quantitative results and URLs mayvary by method. BASIC METABOLIC [id number] 03:30:00* Test Item Value Reference Range Interpretation [...] = CA) 8.7 mg/dL 8.0-10.5 N PROTHROMBIN [id number] 03:27:00* Test Item Value Reference Range Interpretation [...] prior to initiation of heparinComment: infusionTHROMBOPLASTIN TIME [id number] 03:27:00* Test Item Value Reference Range Interpretation Comme nts THROMBOPLASTIN TIME PARTIAL (test code = PTT) 27.5 Seconds 25.0-39.5 N Therapeutic Rang e: 58.8 - 96.0 Seconds Effective 06/15/2024 COMMENTS: STAT if not done within 24 hours prior to initiation of heparinComment: [id number]%2024-11-08 03:26:00* Test Item Value Reference Range Interpretation Comme nts HGBA1C% (test code = HGBA1C%) 8.0 %A1C 4.8-6.0 H CBC W/AUTO [id number] 03:11:00* Test Item Value Reference Range Interpretation [...] initiation of heparin Comment: infusionHEPATITIS C ANTIBODY [id number] 15:31:00* Test Item Value Reference Range Interpretation Comme [facility] SCRN HCV (test code = SCRN HCV) NEGATIVE NEGATIVE Hepatitis C Anti body test is for screening purposes only. All reactives will be confirmed by additional testing. ER SCREEN FOR HIV 14:10:00* Test Item Value Reference Range Interpretation Comme [facility] HIV 1/2 AB (test code = SCRN HIV) NONREACTIVE NONREACTIVE This test is us ed for SCREENING purposes only. All reactive results are prelimenary and confirmation results will follow. ISTAT CHEM [id number] 16:35:00* Test Item Value Reference Range Interpretation [...] (test code = ISTANGAP) 17 MMOL/L ANTIBODY [id number] 20:23:00* Test Item Value Reference Range Interpretation Comme nts AB ID (test code = ABID) Anti-E [id number] 19:35:00* Test Item Value Reference Range Interpretation Comme nts BLOOD TYPE (test code = TYPE) O Rh Positive ANTIBODY SCREEN (test code = SCREEN) POSITIVE NEGATIVE LIVER [id number] 18:38:00* Test Item Value Reference Range Interpretation [...] (test code = ALT) 33 U/L 13-69 [id number] 18:05:00* Test Item Value Reference Range Interpretation Comme nts PTT (test code = PTT) 33.0 SECONDS 24.4-36.3 HEPARIN THERAPEU TIC RANGE 57-92 SECONDS PROTHROMBIN TIME WITH [id number] 18:05:00* Test Item Value Reference Range Interpretation Comme nts PROTHROMBIN TIME (test code = PT) 14.6 SECONDS 12.0-14.6 INR Usual Range = 2 to 3 for prevention of deep vein thrombosis (DVT) INR (test code = INR) 1.1 [id number] 17:59:00* Test Item Value Reference Range Interpretation [...] = NEUT) 2.9 K/UL 1.2-7.2 WHOLE BLOOD [id number] 17:25:00* Test Item Value Reference Range Interpretation Comme nts WHOLE BLOOD GLUCOSE (test co de = POC GLU) 189 MG/DL 70-99 H ANTI-NUCLEAR AB, IGG [id number] 16:27:00* Test Item Value Reference Range Interpretation Comme nts ANTI-NUCLEAR AB, IGG (test c ode = DANIEL IGG) NEGATIVE NEGATIVE HEMOGLOBIN [id number] 15:23:00* Test Item Value Reference Range Interpretation [...] Normal adult hem oglobin present. Performed at: - [facility], [place], [place] [id number] Fusing Line Inspector: GRETCHEN Luna MD, Phone: [phone] PAROXYSMAL NOCT. [id number] 11:09:00* Test Item Value Reference Range Interpretation Comme nts PNH (test code = PNH) NEGATIVE TESTING PERFORME D AT [facility] INTERPRETATION: NO EVIDENCE OF PAROXYSMAL NOCTURNAL HEMOGLOBINURIA FREE K AND L LIGHT CHAIN [id number] 09:47:00* Test Item Value Reference Range Interpretation Comme nts FREE KAPPA LT CHAIN (test co de = FRKLTCH) 21.5 mg/l 3.3-19.4 H FREE LAMBDA LT CHAINS (test code = FRLLTCH) 22.3 mg/l 5.7-26.3 KAPPA/LAMBDA RATIO (test cod e = K/L RATI) 0.96 0.26-1.65 TESTING PERFORMED AT [facility] [address]NR[address]OOZUPJY[address], QUANT 2018-06-28 08:30:00* Test Item Value Reference Range Interpretation Comme nts HAPTO (test code = HAPTO) 61 mg/dL 34-200 Performed at: [facility] [address] [place], [place] [id number] Fusing Line Inspector: Patti Bustillos MD, Phone: [phone] HOMOCYSTEINE, [id number] 10:17:00* Test Item Value Reference Range Interpretation Comme [facility] HOMOCYSTEINE, PLASMA (test code = HOMO-S) 12.5 umol/L 0.0-15.0 Performed at: - [facility] [address] [id number] Fusing Line Inspector: Kiet Carpenter MD, Phone: [phone] DIRECT [id number] 13:36:00* Test Item Value Reference Range Interpretation Comme nts IGG (test code = ANTI-IGG) NEGATIVE NEGATIVE IGG-C3D (test code = IGG-C3D) NEGATIVE NEGATIVE RHEUMATOID [id number] 12:50:00* Test Item Value Reference Range Interpretation Comme nts RF/RA (test code = RA) <8.6 IU/mL 0-12 HIV 1/2 [id number] 12:50:00* Test Item Value Reference Range Interpretation Comme nts HIV 1/2 ANTIBODY (test code = AHIV) NONREACTIVE NONREACTIVE This test is used for SCREENING purposes only. All reactive results are prelimenary and confirmation results will follow. ACUTE HEPATITIS [id number] 12:49:00* Test Item Value Reference Range Interpretation [...] be sent to reference lab for confirmation. [id number] 12:49:00* Test Item Value Reference Range Interpretation Comme nts LDH (test code = LDH) 510 U/L 313-618 WHOLE BLOOD [id number] 12:26:00* Test Item Value Reference Range Interpretation Comme nts WHOLE BLOOD GLUCOSE (test code = POC GLU) 122 mg/dL 70-99 H Fasting glucose normal <100 MG/DL- [employer] recommendation US LIMITED ABD [id number] 11:55:[address] [address]NJKJDMHMOK IMAGING REPORTPatient Name: Kade PRATT of Service: [id number]: 47 Sex: F Order #: [id number] Room: [address] [place] [address] T3DOB: 1970 X-Ray Number: [id number] Record Number: [id number] Hospital Number: [id number] Physician: LEONOR EUBANKS -Ordering Physician: Lauren COOPER [...] code = RHCT) 33.6 % 38-52 L [id number] 08:04:00* Test Item Value Reference Range Interpretation Comme nts HGB (test code = HGB) 10.8 G/DL 11.5-15.5 L HCT (test code = HCT) 34.7 % 34-46 MCV (test code = MCV) 77.6 FL 80-98 L MCHC (test code = MCHC) 31.1 G/DL 32.5-36.5 L WHOLE BLOOD [id number] 20:30:00* Test Item Value Reference Range Interpretation Comme nts WHOLE BLOOD GLUCOSE (test code = POC GLU) 127 mg/dL 70-99 H Fasting glucose normal <100 MG/DL- [employer] recommendation VITAMIN [id number] 18:40:00* Test Item Value Reference Range Interpretation Comme nts B12 (test code = B12) 286 pg/mL 239-931 [id number] 18:40:00* Test Item Value Reference Range Interpretation Comme nts FOLATE (test code = FOLATE) 11.8 ng/mL 2.76-20.0 WHOLE BLOOD [id number] 18:01:00* Test Item Value Reference Range Interpretation Comme nts WHOLE BLOOD GLUCOSE (test code = POC GLU) 84 mg/dL 70-99 Fasting glucose normal <100 MG/DL- [employer] recommendation WHOLE BLOOD [id number] 12:26:00* Test Item Value Reference Range Interpretation Comme nts WHOLE BLOOD GLUCOSE (test code = POC GLU) 197 mg/dL 70-99 H Fasting glucose normal <100 MG/DL- [employer] recommendation 1 UNIT [id number] 12:00:00* Test Item Value Reference Range Interpretation Comme nts PI (test code = PI) FIELD PARTY MANAGER SI (test code = SI) Transfused HCT/[id number] 08:56:00* Test Item Value Reference Range Interpretation Comme nts HGB (test code = HGB) 10.3 G/DL 11.5-15.5 L HCT (test code = HCT) 32.9 % 34-46 L MCV (test code = MCV) 78.5 FL 80-98 L MCHC (test code = MCHC) 31.3 G/DL 32.5-36.5 L WHOLE BLOOD [id number] 08:12:00* Test Item Value Reference Range Interpretation Comme nts WHOLE BLOOD GLUCOSE (test code = POC GLU) 114 mg/dL 70-99 H Fasting glucose normal <100 MG/DL- [employer] recommendation ER SCREEN FOR HIV 07:38:00* Test Item Value Reference Range Interpretation Comme nts HIV 1/2 AB (test code = SCRN HIV) NONREACTIVE NONREACTIVE This test is us ed for SCREENING purposes only. All reactive results are prelimenary and confirmation results will follow. HEPATITIS C ANTIBODY [id number] 07:38:00* Test Item Value Reference Range Interpretation Comme nts SCRN HCV (test code = SCRN HCV) NEGATIVE NEGATIVE Hepatitis C Anti body test is for screening purposes only. All reactives will be confirmed by additional testing. 1 UNIT [id number] 04:00:00* Test Item Value Reference Range Interpretation Comme nts PI (test code = PI) FIELD PARTY MANAGER SI (test code = SI) Transfused HCT/[id number] 01:31:00* Test Item Value Reference Range Interpretation Comme nts HGB (test code = HGB) 8.9 G/DL 11.5-15.5 L HCT (test code = HCT) 28.8 % 34-46 L MCV (test code = MCV) 77.4 FL 80-98 L MCHC (test code = MCHC) 30.9 G/DL 32.5-36.5 L WHOLE BLOOD [id number] 00:56:00* Test Item Value Reference Range Interpretation Comme nts WHOLE BLOOD GLUCOSE (test code = POC GLU) 139 mg/dL 70-99 H Fasting glucose normal <100 MG/DL- [employer] recommendation WHOLE BLOOD [id number] 21:17:00* Test Item Value Reference Range Interpretation Comme nts WHOLE BLOOD GLUCOSE (test code = POC GLU) 105 mg/dL 70-99 H Fasting glucose normal <100 MG/DL- [employer] recommendation HCT/[id number] 17:49:00* Test Item Value Reference Range Interpretation Comme nts HGB (test code = HGB) 9.8 G/DL 11.5-15.5 L HCT (test code = HCT) 31.5 % 34-46 L MCV (test code = MCV) 78.2 FL 80-98 L MCHC (test code = MCHC) 31.1 G/DL 32.5-36.5 L SMALL BOWEL [id number] 16:22:[address] [address]DWFAIRONDR IMAGING REPORTPatient Name: Kade PRATT of Service: [id number]: 47 Sex: F Order #: [id number] Room: [address] [place] [address] T3DOB: 1970 X-Ray Number: [id number] Record Number: [id number] Hospital Number: [id number] Physician: DANA PERALES NHATOrdering Physician: Sameera NDIAYE bowel study 1500 hoursHistory: Anemia, recent colonoscopyGastrografin Contrast was given orally.Findings:Small bowel loops have a normal course, caliber and motility.Contrast reaches the colon within 45 minutes.There is no definitepersistent constricting or obstructing lesion.Impression:Unremarkable small bowel series.Electronically Signed By: Chris Brannon M.D., 06/24/2018 4:20 PMLegally authenticated by LIDYA DAVIDSON 2018-06-24 16:20:24IRON/ BINDING CAPACITY/ %[id number] 15:07:00* Test Item Value Reference Range Interpretation Comme nts IRON % SATURATION (test code = %SAT) 5 % 20-45 L IRON (test code = FE) 28 UG/DL 37-170 L If Iron is <6 the % saturation is incalculable. IBC (test code = IBC) 521 265-497 H HCT/[id number] 13:26:00* Test Item Value Reference Range Interpretation Comme nts HGB (test code = HGB) 8.7 G/DL 11.5-15.5 L HCT (test code = HCT) 28.2 % 34-46 L MCV (test code = MCV) 78.3 FL 80-98 L MCHC (test code = MCHC) 30.9 G/DL 32.5-36.5 L 1 UNIT [id number] 10:26:00* Test Item Value Reference Range Interpretation Comme nts PI (test code = PI) FIELD PARTY MANAGER SI (test code = SI) Transfused [id number] 10:14:00* Test Item Value Reference Range Interpretation [...] = NEUT) 3.4 K/UL 1.2-7.2 1 UNIT [id number] 10:07:00* Test Item Value Reference Range Interpretation Comme nts PI (test code = PI) FIELD PARTY MANAGER SI (test code = SI) Transfused BMP, BASIC METABOLIC [id number] 10:02:00* Test Item Value Reference Range Interpretation Comme nts SODIUM (test code = NA) 142 MMOL/L 137-145 K+ (test code = KSERUM) 4.3 MMOL/L 3.5-5.1 PLEASE NOTE NEW REFERENCE RANGE(S) IN EFFECT EFFECTIVE 03/26/2010 - NEW ANALYZER (Vint 5600) CHLORIDE (test code = CL) 107 MMOL/L 98-107 CO2 (test code = CO2) 28 MMOL/L 22-30 BUN (test code = BUN) 8 MG/DL 7-17 CREA (test code = CREA) 0.5 MG/DL 0.7-1.2 L GLUCOSE (test code = GLUCOSE) 122 MG/DL 70-99 H Fasting glucos e normal <100 MG/DL- [employer] recommendation CALCIUM (test code = CABLOOD) 8.8 MG/DL 8.4-10.2 GFR (test code = GFR) 142 mL/min/1.73m2 A GFR of >90 mL/min/1.73m2 is considered normal. HCT/[id number] 08:53:00* Test Item Value Reference Range Interpretation Comme nts HGB (test code = HGB) 8.2 G/DL 11.5-15.5 L HCT (test code = HCT) 27.1 % 34-46 L MCV (test code = MCV) 77.7 FL 80-98 L MCHC (test code = MCHC) 30.3 G/DL 32.5-36.5 L THYROID STIMULATION [id number] 23:21:00* Test Item Value Reference Range Interpretation Comme nts TSH (test code = TSH) 2.88 UIU/ML 0.465-4.68 OCCULT BLOOD, [id number] 17:52:00* Test Item Value Reference Range Interpretation Comme nts OCCULT BLOOD FECES (test cod e = OCCBLFEC) POSITIVE NEGATIVE A LOT# CRD (test code = LOT# CRD) 26739 EXP CRD (test code = EXP CRD) LOT# DVL (test code = LOT# DVL) 96136 EXP DVL (test code = EXP DVL) INT QC (test code = INT QC) PASSED ABO/RH [id number] 17:49:00* Test Item Value Reference Range Interpretation Comme nts CONFIRMATION BLOOD TYPE (juan carlos t code = CONFTYPE) O POSITIVE [id number] 17:46:00* Test Item Value Reference Range Interpretation Comme nts BLOOD TYPE (test code = TYPE) O Rh Positive ANTIBODY SCREEN (test code = SCREEN) NEGATIVE NEGATIVE [id number] 17:04:00* Test Item Value Reference Range Interpretation Comme nts SODIUM (test code = NA) 141 MMOL/L 137-145 K+ (test code = KSERUM) 4.1 MMOL/L 3.5-5.1 PLEASE NOTE NEW REFERENCE RANGE(S) IN EFFECT EFFECTIVE 03/26/2010 - NEW ANALYZER (Vint 5600) CHLORIDE (test code = CL) 111 MMOL/L 98-107 H CO2 (test code = CO2) 28 MMOL/L 22-30 BUN (test code = BUN) 9 MG/DL 7-17 CREA (test code = CREA) 0.5 MG/DL 0.7-1.2 L GLUCOSE (test code = GLUCOSE) 150 MG/DL 70-99 H Fasting glucos e normal <100 MG/DL- [employer] recommendation CALCIUM (test code = [...] GFR of >90 mL/min/1.73m2 is considered normal. [id number] 16:38:00* Test Item Value Reference Range Interpretation [...] TO ight/ped er/1637/caCHEST 1 VIEW PORTABLE 2018-06-23 14:01:00[address] [address]ZIYISACRLV IMAGING REPORTPatient Name: Kade PRATT of Service: [id number]: 47 Sex: F Order #: [id number] [facility] 1970 [facility] Number: [id number] Record Number: [id number] Hospital Number: [id number] Physician: JANETTE BARRETT -Ordering Physician: JANETTE BARRETT -CHEST 1 VIEW PORTABLE 06/23/2018 1:58 PMHistory: Cough without feverComparisons: 06/12/2018FINDINGS:Heart size is normal.There is no focal lung consolidation.There is no definite pleural effusion or pneumothorax identified.Resection of thedistal RIGHT clavicle.IMPRESSION:No acute cardiopulmonary process.Electronically Signed By: Nico Brannon M.D., 06/23/2018 1:59 PMLegally authenticated by LIDYA DAVIDSON 2018-06-23 13:59:27WHOLE BLOOD [id number] 12:41:00* Test Item Value Reference Range Interpretation Comme nts WHOLE BLOOD GLUCOSE (test code = POC GLU) 127 mg/dL 70-99 H Fasting glucose normal <100 MG/DL- [employer] recommendation GROUP A STREP [id number] 12:44:00* Test Item Value Reference Range Interpretation Comme nts GROUP A STREP SCREEN (test code = STREPGRA) POSITIVE NEGATIVE A SCREEN PO S/CULT POS - GRP A STREP ISOLATED. FINAL REPORT STREP A INTERNAL POS CNTRL (test code = STRPAIPC) PASS PASS STREP A LOT # (test code = STRPALOT) [id number] STREP A EXPIRATION DATE (test code = STRPAEXP) 2020-06-16 SCREEN POS/CULT POS - GRP A STREP ISOLATED. FINAL REPORTWHOLE BLOOD GLUCOSE 2018-06-12 11:33:00* Test Item Value Reference Range Interpretation Comme nts WHOLE BLOOD GLUCOSE (test code = POC GLU) 146 mg/dL 70-99 H Fasting glucose normal <100 MG/DL- [employer] recommendation CHEST XR 2 [id number] 09:28:00[address] [address]HKIHRMLZHB IMAGING REPORTPatient Name: Kade PRATT of Service: [id number]: 47 Sex: F Order #: [id number] Room: [facility]: [facility] X-Ray Number: [id number] Record Number: [id number] Hospital Number: [id number] Physician: Sophia LAW Physician: SALOMON CAMACHO 2 VIEWS@0 912 hours June 12, 2018:CLINICAL HISTORY: Sore throat, swollen glands and cough dyspnea andlightheaded bodyachesTECHNIQUE: PA and lateralFINDINGS: The heart and pulmonary vasculature are normal, and the lungs areclear.The mediastin al structures and bony thorax are normal.IMPRESSION:Normal chest.Electronically Signed By: Luis F Uribe M.D., 06/12/2018 9:26 AMLegafaizan authenticated by LORNE Tafoya 2018-06-12 09:26:12INFLUENZA [id number] 09:10:00* Test Item Value Reference Range Interpretation Comme nts FLU A (test code = FLU A) NEGATIVE NEGATIVE FLU B (test code = FLU B) NEGATIVE NEGATIVE FLU INTERNAL POSITIVE CNTRL (test code = FLU IPC) PASS PASS INFLUENZA LOT # (test code = FLULOT) [id number] INFLUENZA EXPIRATION DATE (t est code = FLUEXP) [id number] Notes Date/Time Note Provider Source 2024-11-29 11:50:00 [facility] ([facility] Int. Radiology Progress Note REPORT#:[id number] REPORT STATUS: Signed REPORT INITIALIZATION DATE:11/29/24 TIME: 1150 PATIENT: YUNIER PRATT UNIT #: [id number] [facility] AGE: 54 SEX: F ATTEND: Antoinette Ross MD ADM AUTHOR: Vito Buitrago REPT SERVICE DT/TIME: 11/29/24 1150 * ALL edits or amendments must be made on the electronic/computer document * General Date of Procedure: 11/28/24 Status post: right thoracostomy for pleural effusion Subjective Chief complaint: SOB, weakness Patient reports: improvement per nurse and PERSONAL INJURY SPECIALIST Review of Systems All systems rev neg: except as marked Objective General VS/I O: Last Documented: Result Date Time Pulse Ox 100 11/29 0832 B/P 128/62 11/29 0832 B/P Mean 0.0 11/29 0832 O2 Delivery Room air 11/29 0832 Temp 36.9 11/29 0832 Pulse 67 11/29 0832 Resp 21 11/29 0832 FiO2 21 11/28 0705 O2 Flow Rate 2 11/26 1600 24 hour I O ending at 0700: 11/29 0700 11/28 1900 Intake Total 500 250 Output Total 800 2300 Balance -300 -2050 Intake, Oral 500 250 Number 0 Bowel Movements Number Voids 2 Output, Chest 0 1500 Tube Drainage Output, Urine 800 800 Patient 77.2 kg Weight Weight Standing scale Measurement Method PATIENT WEIGHT: Weight (lb): 170 Weight (oz): 3.15 Weight (kg): 77.200 Medications: Active Meds + DC'd Last 24 Hrs Furosemide (LASIX 40 mg/4 mL INJECTION) 40 MG ONCE ONE IV (DC) Ketorolac Tromethamine (TORADOL) 15 MG Q6HR IV Oxycodone/Acetaminophen (PERCOCET 5/325MG TAB) 2 TAB Q6H PRN PRN PO Hydromorphone HCl (DILAUDID) 0.5 MG Q6H PRN PRN IV Sodium Chloride (SODIUM CHLORIDE) 0 ASDIR PRN IV (DC) Polyethylene Glycol (MIRALAX) 17 GM DAILY PO Hydrocodone Bitart/Acetaminophen (NORCO 10/325) 1 TAB Q4H PRN PRN PO Amitriptyline HCl (ELAVIL) 25 MG BEDTIME PO Gabapentin (NEURONTIN) 1,200 MG TID PO Hydromorphone HCl (DILAUDID) 0.2 MG Q6H PRN PRN IV (DC) Methocarbamol (ROBAXIN) 500 MG Q8H PRN PRN PO Bisacodyl (DULCOLAX) 10 MG DAILY PRN PRN PO Naloxone HCl (NARCAN) 0.4 MG Q2M PRN PRN IV Dextrose/Water (DEXTROSE 10% IN WATER) 125 ML ASDIR PRN IV (CKD) Dextrose/Water (DEXTROSE 10% IN WATER) 250 ML ASDIR PRN IV (CKD) Glucagon (GLUCAGON) 1 MG ASDIR PRN IM Docusate Sodium (COLACE) 100 MG BID PO Ipratropium Basom (ATROVENT) 500 MCG RTQ6H NEB Furosemide (LASIX 40 mg/4 mL INJECTION) 40 MG BID 9A 5P IV Mupirocin (BACTROBAN 2% 22 GM OINTMENT) 1 APPLIC BID NASAL Sterile Water (WATER FOR INJECTION) 5 ML ASDIR PRN IV Amiodarone HCl (CORDARONE) 200 MG DAILY PO Aspirin (ASPIRIN) 81 MG DAILY PO Clopidogrel Bisulfate (Plavix) 75 MG DAILY PO Cyanocobalamin (Vitamin B-12 500 mcg tab) 500 MCG DAILY PO Duloxetine HCl (CYMBALTA) 20 MG DAILY PO Ferrous Sulfate (FERROUS SULFATE) 325 MG DAILY PO Pantoprazole (PROTONIX) 40 MG DAILY@0600 PO Quetiapine Fumarate (SeroqueL) 200 MG BEDTIME PO Atorvastatin Calcium (LIPITOR) 40 MG 2100 PO Metoprolol Tartrate (LOPRESSOR) 12.5 MG Q12HR PO Magnesium Sulfate (MAGNESIUM SULFATE 2GM/SWFI 50ML) 50 ML ASDIR PRN IV Potassium Chloride (POTASSIUM CHLORIDE 20MEQ TAB.ER) 20 MEQ ASDIR PRN PO Potassium Chloride (POTASSIUM CHLORIDE 20MEQ TAB.ER) 40 MEQ ASDIR PRN PO Acetaminophen (TYLENOL) 650 MG Q4H PRN PRN PO Acetaminophen (TYLENOL) 650 MG Q4H PRN PRN RECTAL Al Hydrox/Mg Hydrox/Simethicone (MYLANTA) 30 ML Q4H PRN PRN PO Docusate Sodium (COLACE) 100 MG BID PRN PRN PO Ondansetron HCl (ZOFRAN) 4 MG Q4H PRN PRN IV Physical Exam General appearance: alert, awake, oriented Wound/incision: Location: posterior right chest Site condition: dressing clean dry, dressing intact Respiratory: no distress Neuro/REWRITER: alert, oriented X 3 Results Findings/Data: Recent Impressions: RADIOLOGY - XR CHEST 1 V 11/30 0751 Report Impression - Status: SIGNED Entered: 11/29/2024851 IMPRESSION: Stable chest with mild CHF and small effusions. Tiny almost imperceptible right apical residual pneumothorax with right thoracostomy tube. Impression By: Fern - Jordan Galindo M.D. Results: labs reviewed, vital signs reviewed, x-ray personally reviewed Diagnosis, Assessment Plan Problem List/A P: 1. Pleural effusion 2. Decompensated heart failure 3. Status post coronary artery bypass graft Consultants: cardiology Free Text DxA P Notes: improvement seen in imaging. Tiny R ptx notd, no treatment indicated at this time. Patient left prior to being seen by IR. CHIVO reynolds. at 0835 RPT #:[id number] END OF REPORT [facility] 2024-11-29 10:54:00 [facility] ([facility]) Discharge Summary REPORT#:[id number] REPORT STATUS: Signed REPORT INITIALIZATION DATE:11/29/24 TIME: 1053 PATIENT: YUNIER PRATT UNIT #: [id number] [facility] AGE: 54 SEX: F ATTEND: Antoinette Ross MD ADM AUTHOR: Talita Monzon REPT SERVICE DT/TIME: 11/29/24 1054 * ALL edits or amendments must be made on the electronic/computer document * PCP PCP PCP: PCP: No Primary or Family Physician Discharge to: home General Information Date of admission: Observation Start Date: 11/24/24 Date of admission: 11/26/24 Discharge date: 11/29/24 Admission diagnosis: s/p cabg pleural effusion Discharge diagnosis: s/p right pigtail Hospital course: This is a 54-year-old female with a past medical history of hypertension, diabetes on insulin, and neuropathy who had a recent NSTEMI and had severe MVD. Patient had successful CABG x 5 (ASH to LAD, saphenous vein to diagonal, saphenous vein to first marginal, saphenous vein to second marginal, saphenous vein to PDA), ALAA on 11/09/24. Patient had bilateral pleural effusions drained prior to discharge on 11/21/24 with pigtail chest tube catheters, later in which were removed. Patient denies any alcohol or drug use. He does report half pack a day smoking for the past 40 years. 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 Patient presents to OSH with shortness of breath and reports acute onset of symptoms that began 2-3 days ago. She admits to associated cough productive sputum, chest pain and global swelling. Her CXR revealed a pleural effusion. Her notable lab findings were as follows: H/H 8.5/26.2, AST 105, ALT, 95, alk phos 124, troponin 530.5 and BNP 4063. She denies fever, abdominal pain, nausea /vomiting, melena, hematuria, hematochezia or calf pain. Assessment/plan: 1. Shortness of breath 2. Pleural effusion 3. Status post CABG 4. Hypertension 5. Neuropathy 6. Type 2 diabetes Admit to observation unit Monitor on telemetry for arrhythmia Labs reviewed, replace electrolytes as needed Diurese patient with IV Lasix Echocardiogram Encourage incentive spirometer use PT/OT Resume home medications and adjust as needed SCDs for DVT prophylaxis Cardiology consulted Further recommendations based on clinical course Patient seen and examined. Discussed plan of care with patient, all patient's questions have been answered MDM done by Dr. Little 11/25/24 Patient alert, awake, oriented, reports feeling better Labs reviewed, replace electrolytes as needed Wean off oxygen, currently on 2 L nasal cannula, I-S use encouraged Normal sinus rhythm, monitoring blood pressure closely Echocardiogram pending Strict I's and O's and daily weights, weight trending down, diurese with Lasix, give Diamox today Out of bed to chair for all meals, ambulate, PT OT following Patient seen and examined. Discussed plan of care with patient, all questions answered. MDM done by Dr. Little 11/27/24 Patient alert, awake, oriented, reports pain. Pain management following. Labs reviewed, replace electrolytes as needed Wean off oxygen, on Room Air, I-S use encouraged Normal sinus rhythm, monitoring blood pressure closely Minimal drianage on Chest tubes. CT Dc'd Strict I's and O's and daily weights, weight trending down, Out of bed to chair for all meals, ambulate, PT OT following Patient seen and examined. Consult Pain management. 11/28/24 Patient alert, awake, oriented, pain management following. Labs reviewed, replace electrolytes as needed On room air. Chest x-ray reviewed shows increased right pleural effusion. Will obtain pigtail cath placement. Normal sinus rhythm, monitoring blood pressure closely Strict I's and O's and daily weights, weight trending down, Out of bed to chair for all meals, ambulate, PT OT following IR consulted for pigtail placement Continue supportive care. Patient seen examined Dr. Ross plan of care discussed with patient. 11/29/24 Patient alert, awake, oriented, pain management following. Labs reviewed, replace electrolytes as needed Breathing comfortably on RA, CXR reviewed, s/p R pigtail placement CXR shows Stable chest with mild CHF and small effusions. Tiny almost imperceptible right apical residual pneumothorax with right thoracostomy tube. Will DC CT. Normal sinus rhythm, monitoring blood pressure closely Strict I's and O's and daily weights, weight trending down Out of bed to chair for all meals, ambulate, PT OT following Discharge today, post op apt given, all questions answered. Patient seen examined Dr. Ross plan of care discussed with patient. All questions answered. Consultants: cardiology Med Rec PCP PCP: PCP: No Primary or Family Physician Med Rec Discharge meds: Continue taking these medications: DULoxetine DR (CYMBALTA) 20 MG CAP.DR 20 MILLIGRAM ORAL DAILY. GABAPENTIN (NEURONTIN) 300 MG CAP 600 MILLIGRAM ORAL THREE TIMES A DAY. Qty = 2 CLOPIDOGREL (PLAVIX) 75 MG TAB 75 MILLIGRAM ORAL DAILY. Days = 60 Qty = 60 FERROUS SULFATE (FEOSOL) 325 MG (65 MG IRON) TAB 325 MILLIGRAM ORAL DAILY. Days = 30 Qty = 30 AMIODARONE (PACERONE) 200 MG TAB 200 MILLIGRAM ORAL DAILY. Days = 7 Qty = 7 ATORVASTATIN (LIPITOR) 40 MG TAB 40 MILLIGRAM ORAL 2100 Days = 30 Qty = 30 METOPROLOL TARTRATE (LOPRESSOR) 25 MG TAB 12.5 MILLIGRAM ORAL EVERY 12 HOURS. Days = 30 Qty = 30 ASPIRIN (ASPIRIN) 81 MG TAB.CHEW 81 MILLIGRAM ORAL DAILY. Days = 30 Qty = [address] (PROTONIX) 40 MG TAB.DR 40 MILLIGRAM ORAL DAILY. Days = 30 Qty = 30 CYANOCOBALAMIN (VITAMIN B-12) 500 MCG TAB 500 MICROGRAM ORAL DAILY. Days = 30 Qty = 30 FUROSEMIDE (LASIX) 40 MG TAB 40 MILLIGRAM ORAL DAILY. Days = 7 Qty = 7 QUEtiapine XR (SEROquel XR) 200 MG TAB.SR.24H 200 MILLIGRAM ORAL BEDTIME. Start taking the following new medications: methocarbamoL (ROBAXIN) 500 MG TAB 500 MILLIGRAM ORAL EVERY 8 HR NEEDED. as needed for MUSCLE SPASMS Days = 7 Qty = 21 No Refills Objective VS/I O Last Documented: Result Date Time Pulse Ox 100 11/30 831 B/P 128/62 11/29 0832 B/P Mean 0.0 11/29 0832 O2 Delivery Room air 11/29 0832 Temp 98.4 11/29 0832 Pulse 67 11/29 0832 Resp 21 11/29 0832 FiO2 21 11/28 0705 O2 Flow Rate 2 11/26 1600 24 hour I O ending at 0700: 11/29 0700 11/28 1900 Intake Total 500 250 Output Total 800 2300 Balance -300 -2050 Intake, Oral 500 250 Number 0 Bowel Movements Number Voids 2 Output, Chest 0 1500 Tube Drainage Output, Urine 800 800 Patient 77.2 kg Weight Weight Standing scale Measurement Method PATIENT WEIGHT: Weight (lb): 170 Weight (oz): 3.15 Weight (kg): 77.200 General appearance: alert, awake, oriented Head/Eyes: atraumatic, clear cornea, EOMI, normocephalic ENT: normal dentition Neck: full range of motion, non-tender Cardiovascular: normal capillary refill, regular rate rhythm, normal heart sounds, BP/pulses equal bilat. Respiratory: no tenderness, aerating well, symmetric expansion GI: soft, non-tender, no guarding Genitourinary: urine Extremities: moves all, no edema-all extremities, normal capillary refill, normal range of motion Musculoskeletal: full range of motion, normal inspection Neuro/REWRITER: alert, oriented X 3 Skin: dry, intact, no gross abnormalities, normal color, normal turgor Wound/incision: Location: sternum Site Condition: edges approximated, no changes in wound, no drainage, no ecchymosis Results Findings/Data: Laboratory Tests: 11/29 0420 Chemistry Sodium (134 - 147 mEq/L) 138 Potassium (3.4 - 5.0 mEq/L) 4.3 Chloride (100 - 108 mEq/L) 103 Carbon Dioxide (21 - 33 mEq/l) 30 Anion Gap (0 - 20) 10 BUN (7 - 25 mg/dL) 17 Creatinine (0.6 - 1.3 mg/dL) 0.8 Glomerular Filtr Rate (90 - 95) 88.6 L Glucose (77 - 141 mg/dL) 206 H Calcium (8.0 - 10.5 mg/dL) 8.1 Magnesium (1.6 - 2.6 mg/dL) 1.91 Hematology WBC (4.5 - 11.0 x10 3/uL) 5.8 RBC (3.54 - 5.02 x10 6/uL) 3.02 L Hgb (11.0 - 15.0 g/dL) 7.5 L Hct (33.0 - 45.0 %) 25.7 L MCV (81.0 - 99.0 fL) 85.1 MCH (27.0 - 33.0 pg) 24.8 L MCHC (33.0 - 37.0 g/dL) 29.2 L RDW (11.5 - 14.5 %) 19.3 H Plt Count (150 - 400 x10 3/uL) 180 MPV (7.0 - 9.0 fL) 10.4 H Neut % (Auto) (56.0 - 77.0 %) 63.5 Lymph % (Auto) (14.0 - 32.0 %) 18.8 [place] % (Auto) (4.8 - 9.0 %) 8.2 Eos % (Auto) (0.3 - 3.7 %) 8.5 H Baso % (Auto) (0.0 - 2.0 %) 0.5 Neut # (Auto) (2.0 - 7.6 x10 3/uL) 3.66 Lymph # (Auto) (1.0 - 3.8 x10 3/uL) 1.08 [place] # (Auto) (0.1 - 0.8 x10 3/uL) 0.47 Eos # (Auto) (0.0 - 0.2 x10 3/uL) 0.49 H Baso # (Auto) (0.0 - 0.2 x10 3/uL) 0.03 Abs Immat Gran (auto) (0.00 - 0.03 x10 3/uL) 0.03 Immature Gran % (0.0 - 2.0 %) 0.5 Nucleated RBC % (0 - 0 %) 0.0 Nucleated RBCs # (Man) (0.0 - 0.1 x10 3/uL) 0.00 Radiology data: Recent Impressions: RADIOLOGY - XR CHEST 1 V 11/28 1113 Report Impression - Status: DRAFT (not yet signed) Entered: 11/28/2024 1200 IMPRESSION: Considerable improvement in right effusion after right thoracostomy tube placement. Tiny right apical pneumothorax. Impression By: Fern Galindo M.D. SPECIAL PROCEDURES - SP PERC DRAIN 11/28 1129 Report Impression - Status: SIGNED Entered: 11/28/2024 1413 IMPRESSION: Successful image guided aspiration and drain placement of right chest fluid collection. Microbiology results are pending. Impression By: Jj Wynne M.D. RADIOLOGY - XR CHEST 1 V 11/29 0851 Report Impression - Status: SIGNED Entered: 11/29/2024 0852 IMPRESSION: Stable chest with mild CHF and small effusions. Tiny almost imperceptible right apical residual pneumothorax with right thoracostomy tube. Impression By: Fern Glaindo M.D. Results: labs reviewed, vital signs reviewed, vital signs stable, rhythm personally rev'd, current med profile rev'd Treatments Procedures Lab: Chemistry last 24 hrs: 11/29 0420 Chemistry Sodium (134 - 147 mEq/L) 138 Potassium (3.4 - 5.0 mEq/L) 4.3 Chloride (100 - 108 mEq/L) 103 BUN (7 - 25 mg/dL) 17 Creatinine (0.6 - 1.3 mg/dL) 0.8 Glucose (77 - 141 mg/dL) 206 H Hematology last 24 hrs: 11/29 042 Hematology WBC (4.5 - 11.0 x10 3/uL) 5.8 Hgb (11.0 - 15.0 g/dL) 7.5 L Hct (33.0 - 45.0 %) 25.7 L Plt Count (150 - 400 x10 3/uL) 180 Neut % (Auto) (56.0 - 77.0 %) 63.5 Imaging: Recent Impressions: RADIOLOGY - XR CHEST 1 V 11/28 0638 Report Impression - Status: SIGNED Entered: 11/28/2024 1840 IMPRESSION: 1. No change in small to moderate right pleural effusion. 2. Mild bibasilar hazy opacities at the lung bases have differential of atelectasis, versus mild infiltrates or effusions. Impression By: Catherine Loredo M.D. RADIOLOGY - XR CHEST 1 V 11/28 1113 Report Impression - Status: DRAFT (not yet signed) Entered: 11/28/2024 1200 IMPRESSION: Considerable improvement in right effusion after right thoracostomy tube placement. Tiny right apical pneumothorax. Impression By: Fern Galindo M.D. SPECIAL PROCEDURES - SP PERC DRAIN 11/28 1129 Report Impression - Status: SIGNED Entered: 11/28/2024 1413 IMPRESSION: Successful image guided aspiration and drain placement of right chest fluid collection. Microbiology results are pending. Impression By: Jj Wynne M.D. RADIOLOGY - XR CHEST 1 V 11/29 0851 Report Impression - Status: SIGNED Entered: 11/29/2024 0852 IMPRESSION: Stable chest with mild CHF and small effusions. Tiny almost imperceptible right apical residual pneumothorax with right thoracostomy tube. Impression By: Fern Galindo M.D. Discharge Instructions PCP PCP: PCP: No Primary or Family Physician )( Discharge to: Home/Self Care Discharge Instructions Additional Discharge Routines: PCP Follow-Up, Attending Follow-Up )( Diet: Cardiac )( Activity: As Tolerated, Appropriate for Age, Do not Submerge Incision, Light Duty, No Driving, No Lifting >10lbs, Shower Only, Sternal Precautions, Walk Follow-up Appointments PCP follow up: PCP: No Primary or Family Physician PCP follow up timeframe: In 1-2 weeks Attending Physician: Attending Physician: Antoinette Ross MD Quality: Discharge Current Medications Current medication review: I attest that the foregoing medication list in the medical record is true, accurate, and complete to the best of my knowledge. at 1059 at 1440 RPT #:[id number] END OF REPORT [facility] 2024-11-29 10:06:00 [facility] Progress Note REPORT#:[id number] REPORT STATUS: Signed REPORT INITIALIZATION DATE:11/29/24 TIME: 1006 PATIENT: YUNIER PRATT UNIT #: [id number] [facility] AGE: 54 SEX: F ATTEND: Antoinette Ross MD ADM AUTHOR: Chandler Marinelli REPT SERVICE DT/TIME: 11/29/24 1006 * ALL edits or amendments must be made on the electronic/computer document * See Addendum Subjective Chief complaint: Patient seen and examined. Chart/MAR reviewed Patient s chest tubes have been removed today. Oral and IV narcotics are working well for her pain medicine as well as Toradol. No new spasms or neuropathy symptoms to report today. She ll be going home. Labs reviewed Patient being seen for acute postoperative pain, hereditary and idiopathic neuropathy, muscle spasms, constipation Patient is still requiring medications to help with managing current problems Patient is requiring IV narcotics to help manage breakthrough pain No fever/chills, chest pain, orthopnea, nausea/vomiting, pruritus, or hallucinations 14 point ROS undertaken unremarkable except as noted Objective General VS/I O: Vital Signs Date Temp Pulse Resp B/P B/P Mean Pulse Ox FiO2 11/28-11/29 36.7-37.5 67-77 17-25 115-151/56-78 0.0-103 97-100 Last Documented: Result Date Time Pulse Ox 100 11/29 0832 B/P 128/62 11/29 0832 B/P Mean 0.0 11/29 0832 O2 Delivery Room air 11/30 831 Temp 36.9 11/29 0832 Pulse 67 11/29 0832 Resp 21 11/29 0832 FiO2 21 11/28 0705 O2 Flow Rate 2 11/26 1600 24 hour I O ending at 0700: 11/29 0700 11/28 1900 Intake Total 500 250 Output Total 800 2300 Balance -300 -2050 Intake, Oral 500 250 Number 0 Bowel Movements Number Voids 2 Output, Chest 0 1500 Tube Drainage Output, Urine 800 800 Patient 77.2 kg Weight Weight Standing scale Measurement Method PATIENT WEIGHT: Weight (lb): 170 Weight (oz): 3.15 Weight (kg): 77.200 Medications: Active Meds + DC'd Last 24 Hrs Furosemide (LASIX 40 mg/4 mL INJECTION) 40 MG ONCE ONE IV (DC) Ketorolac Tromethamine (TORADOL) 15 MG Q6HR IV Oxycodone/Acetaminophen (PERCOCET 5/325MG TAB) 2 TAB Q6H PRN PRN PO Hydromorphone HCl (DILAUDID) 0.5 MG Q6H PRN PRN IV Fentanyl Citrate (SUBLIMAZE) 50 MCG ONCE ONE IV (DC) Fentanyl Citrate (SUBLIMAZE) 0 .STK-MED ONE IV (DC) Sodium Chloride (SODIUM CHLORIDE) 0 ASDIR PRN IV (DC) Polyethylene Glycol (MIRALAX) 17 GM DAILY PO Hydrocodone Bitart/Acetaminophen (NORCO 10/325) 1 TAB Q4H PRN PRN PO Amitriptyline HCl (ELAVIL) 25 MG BEDTIME PO Gabapentin (NEURONTIN) 1,200 MG TID PO Hydromorphone HCl (DILAUDID) 0.2 MG Q6H PRN PRN IV (DC) Methocarbamol (ROBAXIN) 500 MG Q8H PRN PRN PO Bisacodyl (DULCOLAX) 10 MG DAILY PRN PRN PO Naloxone HCl (NARCAN) 0.4 MG Q2M PRN PRN IV Dextrose/Water (DEXTROSE 10% IN WATER) 125 ML ASDIR PRN IV (CKD) Dextrose/Water (DEXTROSE 10% IN WATER) 250 ML ASDIR PRN IV (CKD) Glucagon (GLUCAGON) 1 MG ASDIR PRN IM Docusate Sodium (COLACE) 100 MG BID PO Ipratropium Basom (ATROVENT) 500 MCG RTQ6H NEB Furosemide (LASIX 40 mg/4 mL INJECTION) 40 MG BID 9A 5P IV Mupirocin (BACTROBAN 2% 22 GM OINTMENT) 1 APPLIC BID NASAL Sterile Water (WATER FOR INJECTION) 5 ML ASDIR PRN IV Amiodarone HCl (CORDARONE) 200 MG DAILY PO Aspirin (ASPIRIN) 81 MG DAILY PO Clopidogrel Bisulfate (Plavix) 75 MG DAILY PO Cyanocobalamin (Vitamin B-12 500 mcg tab) 500 MCG DAILY PO Duloxetine HCl (CYMBALTA) 20 MG DAILY PO Ferrous Sulfate (FERROUS SULFATE) 325 MG DAILY PO Pantoprazole (PROTONIX) 40 MG DAILY@0600 PO Quetiapine Fumarate (SeroqueL) 200 MG BEDTIME PO Atorvastatin Calcium (LIPITOR) 40 MG 2100 PO Metoprolol Tartrate (LOPRESSOR) 12.5 MG Q12HR PO Magnesium Sulfate (MAGNESIUM SULFATE 2GM/SWFI 50ML) 50 ML ASDIR PRN IV Potassium Chloride (POTASSIUM CHLORIDE 20MEQ TAB.ER) 20 MEQ ASDIR PRN PO Potassium Chloride (POTASSIUM CHLORIDE 20MEQ TAB.ER) 40 MEQ ASDIR PRN PO Acetaminophen (TYLENOL) 650 MG Q4H PRN PRN PO Acetaminophen (TYLENOL) 650 MG Q4H PRN PRN RECTAL Al Hydrox/Mg Hydrox/Simethicone (MYLANTA) 30 ML Q4H PRN PRN PO Docusate Sodium (COLACE) 100 MG BID PRN PRN PO Ondansetron HCl (ZOFRAN) 4 MG Q4H PRN PRN IV Physical Exam General appearance: conversational Wound/Incision: Location: sternal incision Site condition: healing well Head/eyes: atraumatic, EOMI, normocephalic, normal conjunctiva/sclera, PERRLA ENT: normal pharynx, moist mucosal membranes Neck: supple, midline, trachea Cardiovascular: regular rate rhythm, TTP over anterior sternal area Respiratory: clear to auscultation, no distress Abdomen: soft, non-tender, no distention, active bowel sounds in all quadrant. Extremities: moves all, no edema Neuro/REWRITER: alert, oriented X 3, no motor deficits, no sensory deficits, CNII-XII grossly intact Psychiatry: normal affect Results Findings/data: Laboratory Tests: 11/29 0420 Chemistry Sodium (134 - 147 mEq/L) 138 Potassium (3.4 - 5.0 mEq/L) 4.3 Chloride (100 - 108 mEq/L) 103 Carbon Dioxide (21 - 33 mEq/l) 30 Anion Gap (0 - 20) 10 BUN (7 - 25 mg/dL) 17 Creatinine (0.6 - 1.3 mg/dL) 0.8 Glomerular Filtr Rate (90 - 95) 88.6 L Glucose (77 - 141 mg/dL) 206 H Calcium (8.0 - 10.5 mg/dL) 8.1 Magnesium (1.6 - 2.6 mg/dL) 1.91 Hematology WBC (4.5 - 11.0 x10 3/uL) 5.8 RBC (3.54 - 5.02 x10 6/uL) 3.02 L Hgb (11.0 - 15.0 g/dL) 7.5 L Hct (33.0 - 45.0 %) 25.7 L MCV (81.0 - 99.0 fL) 85.1 MCH (27.0 - 33.0 pg) 24.8 L MCHC (33.0 - 37.0 g/dL) 29.2 L RDW (11.5 - 14.5 %) 19.3 H Plt Count (150 - 400 x10 3/uL) 180 MPV (7.0 - 9.0 fL) 10.4 H Neut % (Auto) (56.0 - 77.0 %) 63.5 Lymph % (Auto) (14.0 - 32.0 %) 18.8 [place] % (Auto) (4.8 - 9.0 %) 8.2 Eos % (Auto) (0.3 - 3.7 %) 8.5 H Baso % (Auto) (0.0 - 2.0 %) 0.5 Neut # (Auto) (2.0 - 7.6 x10 3/uL) 3.66 Lymph # (Auto) (1.0 - 3.8 x10 3/uL) 1.08 [place] # (Auto) (0.1 - 0.8 x10 3/uL) 0.47 Eos # (Auto) (0.0 - 0.2 x10 3/uL) 0.49 H Baso # (Auto) (0.0 - 0.2 x10 3/uL) 0.03 Abs Immat Gran (auto) (0.00 - 0.03 x10 3/uL) 0.03 Immature Gran % (0.0 - 2.0 %) 0.5 Nucleated RBC % (0 - 0 %) 0.0 Nucleated RBCs # (Man) (0.0 - 0.1 x10 3/uL) 0.00 Recent Impressions: RADIOLOGY - XR CHEST 1 V 11/28 1113 Report Impression - Status: DRAFT (not yet signed) Entered: 11/28/2024 1200 IMPRESSION: Considerable improvement in right effusion after right thoracostomy tube placement. Tiny right apical pneumothorax. Impression By: Fern Galindo M.D. SPECIAL PROCEDURES - SP PERC DRAIN 11/28 1129 Report Impression - Status: SIGNED Entered: 11/28/2024 1413 IMPRESSION: Successful image guided aspiration and drain placement of right chest fluid collection. Microbiology results are pending. Impression By: Jj Wynne M.D. RADIOLOGY - XR CHEST 1 V 11/29 0851 Report Impression - Status: SIGNED Entered: 11/29/2024 0852 IMPRESSION: Stable chest with mild CHF and small effusions. Tiny almost imperceptible right apical residual pneumothorax with right thoracostomy tube. Impression By: Fern Galindo M.D. Diagnosis, Assessment Plan Free text A P: Patient is a 54-year-old female who presents with the following: Past medical history: DM, HTN, CAD Past surgical history: CABG 11/09/24, ALAA, PP, EVH, chest tube placement x2, pericardial window 11/26/24 Family history: Noncontributory Social history: Denies drugs, alcohol, smoking Allergies: NKDA Acute postoperative pain -S/P CABG -S/P pericardial window -S/P right chest tube placement -Chest tube removed 11/29/24 -Tylenol 650 mg PO q4h PRN pain scale 1-3 -[place] 10/325 mg PO q4h PRN pain scale 4-10, first line (incr dose 11/27) -Dilaudid 0.5 mg IV q6h PRN pain scale 7-10, second line (11/27, incr dose 11/28 ) -Manageable Hereditary and idiopathic neuropathy -Gabapentin 1200 mg PO TID (incr dose 11/27) -Amitriptyline 25 mg PO qhs (11/27) -Manageable Muscle spasms -Robaxin 500 mg PO q8h PRN (11/27) -Manageable CAD, hypertension -MAR reviewed, continue present cardiac medications -We will monitor hypertension and tachycardia associated with uncontrolled pain. We will monitor for bradycardia and hypotension associated with oversedation with narcotics Constipation -We will monitor while utilizing opioid narcotic medications -Adequate fluid intake also discussed -Miralax 17 g PO daily -Colace 100 mg PO BID -Dulcolax 10 mg PO daily PRN -Colace 100 mg PO BID PRN -Manageable Disposition: PDC 11/29/24 DC date: RX sent for: 11/29-Rx sent electronically for [place] 10/325 mg PO q6h PRN #20, Narcan Pharmacy: [facility] #[id number] ([id number]) [address] [place] [address] [place] [address] Patient has failed conservative medical therapy. Patient will require monitoring while utilize narcotic medications for any adverse effects, and will adjust as needed. Patient will require monitoring drug therapy for toxic effects. Plan of care discussed with patient and nurse. All diagnostics of last 24 hours been reviewed. Have reviewed other specialties notes. Risks versus benefits of opioid medications were reviewed to include, but not limited to respiratory depression, accidental overdose, altered mental status, sudden , constipation which could result in bowel obstruction, seizures, withdrawal, dependency addiction, risk for falls. Case discussed with Dr Keith whom agrees. [place] [employer] report reviewed: Yunier Santa 1970 Summary Total Prescriptions 7 Total Private Pay 0 Total Prescribers 5 Total Pharmacies 2 Narcotics (excluding Buprenorphine) Current MME/day 0.00 30 Day Avg MME/day 6.00 Current Qty 0 11/21/2024 11/21/2024 1 ACETAMINOPHEN-COD #4 TABLET 20.00 5 Ar Qur [id number] [facility] ( 5114) 0 36.00 MME Comm Ins [place] 2024 2024 1 HYDROCODONE-ACETAMIN 5-325 MG 20.00 3 Pa o [id number] [facility] (1910) 0 33.33 MME Comm Ins [place] 2024 2024 1 TRAMADOL-ACETAMINOPHN 37.5-325 20.00 3 Pa Tho [id number] [facility] (5115) 0 50.00 MME Comm Ins [place] [employer] (1910) [address] [facility] [address] [facility][id number] ([id number]) [address] [facility] [address] at 1309 Addendum 1: 11/29/24 1443 by Chandler Marinelli [place] is on back order at [facility] [place] [place] [facility] [place] Rx to [facility], [address] [place] [address] at 1442 RPT #:[id number] END OF REPORT [facility] 2024-11-29 08:53:[address] [facility]) Cardiothoracic Surgery Prog REPORT#:[id number] REPORT STATUS: Signed REPORT INITIALIZATION DATE:11/29/24 TIME: 852 PATIENT: YUNIER PRATT UNIT #: [id number] [facility] AGE: 54 SEX: F ATTEND: Antoinette Ross MD ADM AUTHOR: Talita Monzon REPT SERVICE DT/TIME: 11/29/24 0853 * ALL edits or amendments must be made on the electronic/computer document * General Post-op: post surgery rounds Subjective Chief complaint: Post op pericardial window Review of Systems Constitutional: Denies: chills, fatigue, generalized weakness. Skin: Denies: abrasion, contusion, ecchymosis. Allergy/Immun: Denies: allergic reaction, hives, itching. Eyes: Denies: redness, visual loss/blurred, diplopia. Cardiovascular: Denies: chest pain, palpitations. GI: Denies: abdominal pain, nausea, vomiting. : Denies: dysuria, flank pain. Heme: Denies: adenopathy, bleeding. Neuro: Denies: dizziness, seizure, syncope. All systems rev neg: except as marked Objective General VS/I O Last Documented: Result Date Time Pulse Ox 100 11/30 831 B/P 128/62 11/30 831 B/P Mean 0.0 11/30 831 O2 Delivery Room air 11/30 831 Temp 98.4 11/30 831 Pulse 67 11/30 831 Resp 21 11/30 831 FiO2 21 11/28 0705 O2 Flow Rate 2 11/26 1600 24 hour I O ending at 0700: 11/29 0700 11/28 1900 Intake Total 500 250 Output Total 800 2300 Balance -300 -2050 Intake, Oral 500 250 Number 0 Bowel Movements Number Voids 2 Output, Chest 0 1500 Tube Drainage Output, Urine 800 800 Patient 77.2 kg Weight Weight Standing scale Measurement Method PATIENT WEIGHT: Weight (lb): 170 Weight (oz): 3.15 Weight (kg): 77.200 Dietitian Nutrition assessment The data set between the solid lines has been imported from the dietitian's assessment. BMI Calculated: 27.2 Nutrition related diagnosis: Nutrition diagnosis details: Nutrition problem: Nutrition etiology: Nutrition signs and symptoms: Nutrition prescription: Dietitian name: Assessment completed: Physical Exam General appearance: alert, awake, oriented Wound/incision: Location: sternum Site condition: dressing clean dry, dressing intact HEENT: mucosal membranes moist Cardiovascular: normal heart sounds Respiratory: aerating well, symmetric expansion Abdomen: soft, non-tender Genitourinary: no bladder distention, no flank pain Extremities: dry, moves all Neuro/REWRITER: alert, oriented X 3 Skin: dry, intact Psychiatry: normal affect, normal mood Current Medications Medications: Active Meds + DC'd Last 24 Hrs Ketorolac Tromethamine (TORADOL) 15 MG Q6HR IV Oxycodone/Acetaminophen (PERCOCET 5/325MG TAB) 2 TAB Q6H PRN PRN PO Hydromorphone HCl (DILAUDID) 0.5 MG Q6H PRN PRN IV Fentanyl Citrate (SUBLIMAZE) 50 MCG ONCE ONE IV (DC) Fentanyl Citrate (SUBLIMAZE) 0 .STK-MED ONE IV (DC) Lorazepam (ATIVAN) 1 MG ONCE ONE IV (DC) Sodium Chloride (SODIUM CHLORIDE) 0 ASDIR PRN IV (DC) Polyethylene Glycol (MIRALAX) 17 GM DAILY PO Hydrocodone Bitart/Acetaminophen (NORCO 10/325) 1 TAB Q4H PRN PRN PO Amitriptyline HCl (ELAVIL) 25 MG BEDTIME PO Gabapentin (NEURONTIN) 1,200 MG TID PO Hydromorphone HCl (DILAUDID) 0.2 MG Q6H PRN PRN IV (DC) Methocarbamol (ROBAXIN) 500 MG Q8H PRN PRN PO Bisacodyl (DULCOLAX) 10 MG DAILY PRN PRN PO Naloxone HCl (NARCAN) 0.4 MG Q2M PRN PRN IV Dextrose/Water (DEXTROSE 10% IN WATER) 125 ML ASDIR PRN IV (CKD) Dextrose/Water (DEXTROSE 10% IN WATER) 250 ML ASDIR PRN IV (CKD) Glucagon (GLUCAGON) 1 MG ASDIR PRN IM Docusate Sodium (COLACE) 100 MG BID PO Ipratropium Basom (ATROVENT) 500 MCG RTQ6H NEB Furosemide (LASIX 40 mg/4 mL INJECTION) 40 MG BID 9A 5P IV Mupirocin (BACTROBAN 2% 22 GM OINTMENT) 1 APPLIC BID NASAL Sterile Water (WATER FOR INJECTION) 5 ML ASDIR PRN IV Amiodarone HCl (CORDARONE) 200 MG DAILY PO Aspirin (ASPIRIN) 81 MG DAILY PO Clopidogrel Bisulfate (Plavix) 75 MG DAILY PO Cyanocobalamin (Vitamin B-12 500 mcg tab) 500 MCG DAILY PO Duloxetine HCl (CYMBALTA) 20 MG DAILY PO Ferrous Sulfate (FERROUS SULFATE) 325 MG DAILY PO Pantoprazole (PROTONIX) 40 MG DAILY@0600 PO Quetiapine Fumarate (SeroqueL) 200 MG BEDTIME PO Atorvastatin Calcium (LIPITOR) 40 MG 2100 PO Metoprolol Tartrate (LOPRESSOR) 12.5 MG Q12HR PO Magnesium Sulfate (MAGNESIUM SULFATE 2GM/SWFI 50ML) 50 ML ASDIR PRN IV Potassium Chloride (POTASSIUM CHLORIDE 20MEQ TAB.ER) 20 MEQ ASDIR PRN PO Potassium Chloride (POTASSIUM CHLORIDE 20MEQ TAB.ER) 40 MEQ ASDIR PRN PO Acetaminophen (TYLENOL) 650 MG Q4H PRN PRN PO Acetaminophen (TYLENOL) 650 MG Q4H PRN PRN RECTAL Al Hydrox/Mg Hydrox/Simethicone (MYLANTA) 30 ML Q4H PRN PRN PO Docusate Sodium (COLACE) 100 MG BID PRN PRN PO Ondansetron HCl (ZOFRAN) 4 MG Q4H PRN PRN IV Results Findings/Data: Laboratory Tests 11/30 419 Chemistry Sodium (134 - 147 mEq/L) 138 Potassium (3.4 - 5.0 mEq/L) 4.3 Chloride (100 - 108 mEq/L) 103 Carbon Dioxide (21 - 33 mEq/l) 30 Anion Gap (0 - 20) 10 BUN (7 - 25 mg/dL) 17 Creatinine (0.6 - 1.3 mg/dL) 0.8 Glomerular Filtr Rate (90 - 95) 88.6 L Glucose (77 - 141 mg/dL) 206 H Calcium (8.0 - 10.5 mg/dL) 8.1 Magnesium (1.6 - 2.6 mg/dL) 1.91 Laboratory Tests 11/30 419 Hematology WBC (4.5 - 11.0 x10 3/uL) 5.8 RBC (3.54 - 5.02 x10 6/uL) 3.02 L Hgb (11.0 - 15.0 g/dL) 7.5 L Hct (33.0 - 45.0 %) 25.7 L MCV (81.0 - 99.0 fL) 85.1 MCH (27.0 - 33.0 pg) 24.8 L MCHC (33.0 - 37.0 g/dL) 29.2 L RDW (11.5 - 14.5 %) 19.3 H Plt Count (150 - 400 x10 3/uL) 180 MPV (7.0 - 9.0 fL) 10.4 H Neut % (Auto) (56.0 - 77.0 %) 63.5 Lymph % (Auto) (14.0 - 32.0 %) 18.8 [place] % (Auto) (4.8 - 9.0 %) 8.2 Eos % (Auto) (0.3 - 3.7 %) 8.5 H Baso % (Auto) (0.0 - 2.0 %) 0.5 Neut # (Auto) (2.0 - 7.6 x10 3/uL) 3.66 Lymph # (Auto) (1.0 - 3.8 x10 3/uL) 1.08 [place] # (Auto) (0.1 - 0.8 x10 3/uL) 0.47 Eos # (Auto) (0.0 - 0.2 x10 3/uL) 0.49 H Baso # (Auto) (0.0 - 0.2 x10 3/uL) 0.03 Abs Immat Gran (auto) (0.00 - 0.03 x10 3/uL) 0.03 Immature Gran % (0.0 - 2.0 %) 0.5 Nucleated RBC % (0 - 0 %) 0.0 Nucleated RBCs # (Man) (0.0 - 0.1 x10 3/uL) 0.00 Radiology data: Recent Impressions: RADIOLOGY - XR CHEST 1 V 11/28 1113 Report Impression - Status: DRAFT (not yet signed) Entered: 11/28/2024 1200 IMPRESSION: Considerable improvement in right effusion after right thoracostomy tube placement. Tiny right apical pneumothorax. Impression By: Fern - Jordan Galindo M.D. SPECIAL PROCEDURES - SP PERC DRAIN 11/28 1129 Report Impression - Status: SIGNED Entered: 11/28/2024 1413 IMPRESSION: Successful image guided aspiration and drain placement of right chest fluid collection. Microbiology results are pending. Impression By: MitchJJY Ange Wynne M.D. RADIOLOGY - XR CHEST 1 V 11/29 0851 Report Impression - Status: SIGNED Entered: 11/29/2024 0852 IMPRESSION: Stable chest with mild CHF and small effusions. Tiny almost imperceptible right apical residual pneumothorax with right thoracostomy tube. Impression By: [email or web address] - Jordan Galindo M.D. Results: labs reviewed, vital signs stable, alfonsom personally rev'd, current med profile rev'd Quality: Trauma Gen Surg Current Medications Current medication review: I attest that the foregoing medication list in the medical record is true, accurate, and complete to the best of my knowledge. Diagnosis, Assessment Plan Hospital course to date: This is a 54-year-old female with a past medical history of hypertension, diabetes on insulin, and neuropathy who had a recent NSTEMI and had severe MVD. Patient had successful CABG x 5 (ASH to LAD, saphenous vein to diagonal, saphenous vein to first marginal, saphenous vein to second marginal, saphenous vein to PDA), ALAA on 11/09/24. Patient had bilateral pleural effusions drained prior to discharge on 11/21/24 with pigtail chest tube catheters, later in which were removed. Patient denies any alcohol or drug use. He does report half pack a day smoking for the past 40 years. 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 Patient presents to OSH with shortness of breath and reports acute onset of symptoms that began 2-3 days ago. She admits to associated cough productive sputum, chest pain and global swelling. Her CXR revealed a pleural effusion. Her notable lab findings were as follows: H/H 8.5/26.2, AST 105, ALT, 95, alk phos 124, troponin 530.5 and BNP 4063. She denies fever, abdominal pain, nausea /vomiting, melena, hematuria, hematochezia or calf pain. Assessment/plan: 1. Shortness of breath 2. Pleural effusion 3. Status post CABG 4. Hypertension 5. Neuropathy 6. Type 2 diabetes Admit to observation unit Monitor on telemetry for arrhythmia Labs reviewed, replace electrolytes as needed Diurese patient with IV Lasix Echocardiogram Encourage incentive spirometer use PT/OT Resume home medications and adjust as needed SCDs for DVT prophylaxis Cardiology consulted Further recommendations based on clinical course Patient seen and examined. Discussed plan of care with patient, all patient's questions have been answered MDM done by Dr. Little 11/25/24 Patient alert, awake, oriented, reports feeling better Labs reviewed, replace electrolytes as needed Wean off oxygen, currently on 2 L nasal cannula, I-S use encouraged Normal sinus rhythm, monitoring blood pressure closely Echocardiogram pending Strict I's and O's and daily weights, weight trending down, diurese with Lasix, give Diamox today Out of bed to chair for all meals, ambulate, PT OT following Patient seen and examined. Discussed plan of care with patient, all questions answered. MDM done by Dr. Little 11/27/24 Patient alert, awake, oriented, reports pain. Pain management following. Labs reviewed, replace electrolytes as needed Wean off oxygen, on Room Air, I-S use encouraged Normal sinus rhythm, monitoring blood pressure closely Minimal drianage on Chest tubes. CT Dc'd Strict I's and O's and daily weights, weight trending down, Out of bed to chair for all meals, ambulate, PT OT following Patient seen and examined. Consult Pain management. 11/28/24 Patient alert, awake, oriented, pain management following. Labs reviewed, replace electrolytes as needed On room air. Chest x-ray reviewed shows increased right pleural effusion. Will obtain pigtail cath placement. Normal sinus rhythm, monitoring blood pressure closely Strict I's and O's and daily weights, weight trending down, Out of bed to chair for all meals, ambulate, PT OT following IR consulted for pigtail placement Continue supportive care. Patient seen examined Dr. Ross plan of care discussed with patient. 11/29/24 Patient alert, awake, oriented, pain management following. Labs reviewed, replace electrolytes as needed Breathing comfortably on RA, CXR reviewed, s/p R pigtail placement CXR shows Stable chest with mild CHF and small effusions. Tiny almost imperceptible right apical residual pneumothorax with right thoracostomy tube. Reassess CT after ambulation, possible DC, will continue to monitor for now. Normal sinus rhythm, monitoring blood pressure closely Strict I's and O's and daily weights, weight trending down Out of bed to chair for all meals, ambulate, PT OT following Continue supportive care. Discharge soon. Patient seen examined Dr. Ross plan of care discussed with patient. All questions answered. Consultants: cardiology Code status: full code Plan discussed with: patient, collaborating MD, nurse, interdisc care team at 0905 at 1440 RPT #:[id number] END OF REPORT [facility] 2024-11-29 08:45:00 [facility] ([facility] Cardiology Progress Note REPORT#:[id number] REPORT STATUS: Signed REPORT INITIALIZATION DATE:11/29/24 TIME: 844 PATIENT: YUNIER PRATT UNIT #: [id number] [facility] AGE: 54 SEX: F ATTEND: Antoinette Ross MD ADM AUTHOR: Fay Fernandez AGACNP REPT SERVICE DT/TIME: 11/29/24 0845 * ALL edits or amendments must be made on the electronic/computer document * Subjective Patient reports: No: complaints. Objective General VS/I O: 24 hour I O ending at 0700: 11/29 0700 11/28 1900 Intake Total 500 250 Output Total 800 2300 Balance -300 -2050 Intake, Oral 500 250 Number 0 Bowel Movements Number Voids 2 Output, Chest 0 1500 Tube Drainage Output, Urine 800 800 Patient 77.2 kg Weight Weight Standing scale Measurement Method Vital Signs: Date Time Temp Pulse Resp B/P B/P Pulse O2 O2 Flow FiO2 Mean Ox Delivery Rate 11/29 0832 36.9 67 21 128/62 0.0 100 Room air 11/29 0738 99 Room air 11/29 0430 36.7 67 17 150/71 0.0 100 Room air 11/28 2204 37.0 72 22 115/56 0.0 97 Room air 11/28 1950 99 Room air 11/28 1821 37.5 77 22 151/71 0.0 99 Room air 11/28 1607 37.0 77 20 146/65 0.0 100 Room air 11/28 1458 98 11/28 1450 77 139/63 91 11/28 1203 70 25 139/78 103 11/28 0900 73 19 134/66 94 96 PATIENT WEIGHT: Weight (lb): 170 Weight (oz): 3.15 Weight (kg): 77.200 Medications: Active Meds + DC'd Last 24 Hrs Ketorolac Tromethamine (TORADOL) 15 MG Q6HR IV Oxycodone/Acetaminophen (PERCOCET 5/325MG TAB) 2 TAB Q6H PRN PRN PO Hydromorphone HCl (DILAUDID) 0.5 MG Q6H PRN PRN IV Fentanyl Citrate (SUBLIMAZE) 50 MCG ONCE ONE IV (DC) Fentanyl Citrate (SUBLIMAZE) 0 .STK-MED ONE IV (DC) Lorazepam (ATIVAN) 1 MG ONCE ONE IV (DC) Sodium Chloride (SODIUM CHLORIDE) 0 ASDIR PRN IV (DC) Polyethylene Glycol (MIRALAX) 17 GM DAILY PO Hydrocodone Bitart/Acetaminophen (NORCO 10/325) 1 TAB Q4H PRN PRN PO Amitriptyline HCl (ELAVIL) 25 MG BEDTIME PO Gabapentin (NEURONTIN) 1,200 MG TID PO Hydromorphone HCl (DILAUDID) 0.2 MG Q6H PRN PRN IV (DC) Methocarbamol (ROBAXIN) 500 MG Q8H PRN PRN PO Bisacodyl (DULCOLAX) 10 MG DAILY PRN PRN PO Naloxone HCl (NARCAN) 0.4 MG Q2M PRN PRN IV Dextrose/Water (DEXTROSE 10% IN WATER) 125 ML ASDIR PRN IV (CKD) Dextrose/Water (DEXTROSE 10% IN WATER) 250 ML ASDIR PRN IV (CKD) Glucagon (GLUCAGON) 1 MG ASDIR PRN IM Docusate Sodium (COLACE) 100 MG BID PO Ipratropium Basom (ATROVENT) 500 MCG RTQ6H NEB Furosemide (LASIX 40 mg/4 mL INJECTION) 40 MG BID 9A 5P IV Mupirocin (BACTROBAN 2% 22 GM OINTMENT) 1 APPLIC BID NASAL Sterile Water (WATER FOR INJECTION) 5 ML ASDIR PRN IV Amiodarone HCl (CORDARONE) 200 MG DAILY PO Aspirin (ASPIRIN) 81 MG DAILY PO Clopidogrel Bisulfate (Plavix) 75 MG DAILY PO Cyanocobalamin (Vitamin B-12 500 mcg tab) 500 MCG DAILY PO Duloxetine HCl (CYMBALTA) 20 MG DAILY PO Ferrous Sulfate (FERROUS SULFATE) 325 MG DAILY PO Pantoprazole (PROTONIX) 40 MG DAILY@0600 PO Quetiapine Fumarate (SeroqueL) 200 MG BEDTIME PO Atorvastatin Calcium (LIPITOR) 40 MG 2100 PO Metoprolol Tartrate (LOPRESSOR) 12.5 MG Q12HR PO Magnesium Sulfate (MAGNESIUM SULFATE 2GM/SWFI 50ML) 50 ML ASDIR PRN IV Potassium Chloride (POTASSIUM CHLORIDE 20MEQ TAB.ER) 20 MEQ ASDIR PRN PO Potassium Chloride (POTASSIUM CHLORIDE 20MEQ TAB.ER) 40 MEQ ASDIR PRN PO Acetaminophen (TYLENOL) 650 MG Q4H PRN PRN PO Acetaminophen (TYLENOL) 650 MG Q4H PRN PRN RECTAL Al Hydrox/Mg Hydrox/Simethicone (MYLANTA) 30 ML Q4H PRN PRN PO Docusate Sodium (COLACE) 100 MG BID PRN PRN PO Ondansetron HCl (ZOFRAN) 4 MG Q4H PRN PRN IV Physical Exam General appearance: alert, awake, oriented Head/Eyes: PERRLA ENT: normal nose Neck: no JVD Cardiovascular: CV assessment: regular rate and rhythm Respiratory: clear to auscultation Abdomen: soft Genitourinary: no urinary catheter Lower extremity: LE assessment: edema Musculoskeletal: normal inspection Neuro/REWRITER: alert, oriented X 3, normal speech Skin: dry, intact, normal color Psychiatry: normal affect, normal judgment/insight, normal mood, no hallucinations Results Findings/Data: Laboratory Tests 11/30 419 Chemistry Sodium (134 - 147 mEq/L) 138 Potassium (3.4 - 5.0 mEq/L) 4.3 Chloride (100 - 108 mEq/L) 103 Carbon Dioxide (21 - 33 mEq/l) 30 Anion Gap (0 - 20) 10 BUN (7 - 25 mg/dL) 17 Creatinine (0.6 - 1.3 mg/dL) 0.8 Glomerular Filtr Rate (90 - 95) 88.6 L Glucose (77 - 141 mg/dL) 206 H Calcium (8.0 - 10.5 mg/dL) 8.1 Magnesium (1.6 - 2.6 mg/dL) 1.91 Laboratory Tests 04/10 0420 Hematology WBC (4.5 - 11.0 x10 3/uL) 5.8 RBC (3.54 - 5.02 x10 6/uL) 3.02 L Hgb (11.0 - 15.0 g/dL) 7.5 L Hct (33.0 - 45.0 %) 25.7 L MCV (81.0 - 99.0 fL) 85.1 MCH (27.0 - 33.0 pg) 24.8 L MCHC (33.0 - 37.0 g/dL) 29.2 L RDW (11.5 - 14.5 %) 19.3 H Plt Count (150 - 400 x10 3/uL) 180 MPV (7.0 - 9.0 fL) 10.4 H Neut % (Auto) (56.0 - 77.0 %) 63.5 Lymph % (Auto) (14.0 - 32.0 %) 18.8 [place] % (Auto) (4.8 - 9.0 %) 8.2 Eos % (Auto) (0.3 - 3.7 %) 8.5 H Baso % (Auto) (0.0 - 2.0 %) 0.5 Neut # (Auto) (2.0 - 7.6 x10 3/uL) 3.66 Lymph # (Auto) (1.0 - 3.8 x10 3/uL) 1.08 [place] # (Auto) (0.1 - 0.8 x10 3/uL) 0.47 Eos # (Auto) (0.0 - 0.2 x10 3/uL) 0.49 H Baso # (Auto) (0.0 - 0.2 x10 3/uL) 0.03 Abs Immat Gran (auto) (0.00 - 0.03 x10 3/uL) 0.03 Immature Gran % (0.0 - 2.0 %) 0.5 Nucleated RBC % (0 - 0 %) 0.0 Nucleated RBCs # (Man) (0.0 - 0.1 x10 3/uL) 0.00 Laboratory Tests 11/29 0420 Chemistry Magnesium (1.6 - 2.6 mg/dL) 1.91 Radiology data: Recent Impressions: RADIOLOGY - XR CHEST 1 V 11/28 1113 Report Impression - Status: DRAFT (not yet signed) Entered: 11/28/2024 1200 IMPRESSION: Considerable improvement in right effusion after right thoracostomy tube placement. Tiny right apical pneumothorax. Impression By: [email or web address] - Jordan Galindo M.D. SPECIAL PROCEDURES - SP PERC DRAIN 11/28 1129 Report Impression - Status: SIGNED Entered: 11/28/2024 1413 IMPRESSION: Successful image guided aspiration and drain placement of right chest fluid collection. Microbiology results are pending. Impression By: MitchJJY Ange Wynne M.D. Results: labs reviewed, vital signs reviewed Diagnosis, Assessment Plan Plan discussed with: patient, collaborating MD Free Text DxA P Notes Free Text DxA P Notes: 54 YO female with MH of CAD, PR, recent CABG x5V, HTN, DM, diastolic CHF, longtime heavy smoker. She underwent CABG x5 on November 09, 2024 . Post CABG she developed post-op anemia (s/p PRBC transfusion), thrombocytopenia, as well pleural effusion (s/p bilateral thoracentesis). She was discharged on 2024. Unfortunately she presented back to [facility] on 11/24/2024 with complaint of shortness of breath, cough, generalized edema. Chest imaging at OSH revealed pleural effusion. She was transferred to [facility] for further management. Her echocardiogram revealed large pericardial effusion. 1. Cfyaj-cu-wobkfic Diastolic CHF exacerbation * continue Lasix 40 mg IV BID * strict I/O * negative fluid balance 2. Pericardial effusion * 11/26/2024: underwent pericardial window 3. Pleural effusion * s/p thoracentesis then had chest tube placement by IR * s/p IV Lasix * CXR 11/28 showed improvement in R pleural effusion, has tiny apical pneumothorax 4. Coronary artery disease s/p CABG x5 (11/09/2024) * S/p CABG (ASH-LAD, SVG-OM1, SVG-OM2, SVG-Diag, SVG-PDA) * on Plavix ASA, BB, statin 5. Hypertension * BP stable * continue metoprolol 12.5 mg BID 6. Diabetes mellitus * manage per CTS 7. Anemia * hgb 8.7->7.5 * on iron supplement Discharging home today. Outpatient FU with Dr. Roca/Dr. Cooney. at 1849 RPT #:[id number] END OF REPORT [facility] 2024-11-28 08:24:00 [facility] ([facility]) Pain Management Progress Note REPORT#:[id number] REPORT STATUS: Signed REPORT INITIALIZATION DATE:11/28/24 TIME: 823 PATIENT: YUNIER PRATT UNIT #: [id number] ROOM/BED: [place] [address] : 72 AGE: 54 SEX: F ATTEND: Antoinette Ross MD ADM AUTHOR: Chandler Marinelli REPT SERVICE DT/TIME: 11/28/24823 * ALL edits or amendments must be made on the electronic/computer document * Subjective Chief complaint: Patient seen and examined. Chart/MAR reviewed Patient seen and examined in ICU. We increased her [place] dose last night to 10/ 325 mg. Today she had to have a chest tube inserted on the right side for pleural effusion. She is having more discomfort, both aching and sharp sensations. We will increase the dosage of her Dialudid and add on Amitriptyline since she is at maximum on her Gabapentin. Patient being seen for acute postoperative pain, hereditary and idiopathic neuropathy, muscle spasms, constipation Patient is still requiring medications to help with managing current problems Patient is requiring IV narcotics to help manage breakthrough pain No fever/chills, chest pain, orthopnea, nausea/vomiting, pruritus, or hallucinations 14 point ROS undertaken unremarkable except as noted Objective General VS/I O: Vital Signs Date Temp Pulse Resp B/P B/P Mean Pulse Ox FiO2 11/27-11/28 36.6-36.8 55-72 5-30 102-153/56-79 74-109 70-99 21 Last Documented: Result Date Time Pulse Ox 95 11/28 07 FiO2 21 11/28 0705 O2 Delivery Room air 11/28 704 Temp 36.8 11/28 0400 Pulse 61 11/28 0237 Resp 18 11/28 0237 B/P 142/76 11/28 0121 B/P Mean 104 11/28 0121 O2 Flow Rate 2 11/26 1600 24 hour I O ending at 0700: 04/09 0700 04/08 1900 Intake Total 450.00 480 Output Total 700 1515 Balance -250.00 -1035 Intake, IV 50.00 Intake, Oral 400 480 Number 0 Bowel Movements Number 0 Incontinent Voids Number Voids 4 Output, Chest 15 Tube Drainage Output, Stool 0 Output, Urine 700 1500 Patient 76.4 kg 77.111 kg Weight Weight Standing scale Measurement Method PATIENT WEIGHT: Weight (lb): 168 Weight (oz): 6.93 Weight (kg): 76.400 Medications: Active Meds + DC'd Last 24 Hrs Polyethylene Glycol (MIRALAX) 17 GM DAILY PO Hydrocodone Bitart/Acetaminophen (NORCO 10/325) 1 TAB Q4H PRN PRN PO Amitriptyline HCl (ELAVIL) 25 MG BEDTIME PO Gabapentin (NEURONTIN) 1,200 MG TID PO Hydromorphone HCl (DILAUDID) 0.2 MG Q6H PRN PRN IV Gabapentin (NEURONTIN) 1,200 MG ONCE ONE PO (DC) Methocarbamol (ROBAXIN) 500 MG Q8H PRN PRN PO Bisacodyl (DULCOLAX) 10 MG DAILY PRN PRN PO Naloxone HCl (NARCAN) 0.4 MG Q2M PRN PRN IV Hydrocodone Bitart/Acetaminophen (NORCO 7.5/325 TABLET) 1 TAB Q4H PRN PRN PO (DC) Morphine Sulfate (morphine SULFATE) 2 MG ONCE ONE IV (DC) Dextrose/Water (DEXTROSE 10% IN WATER) 125 ML ASDIR PRN IV (CKD) Dextrose/Water (DEXTROSE 10% IN WATER) 250 ML ASDIR PRN IV (CKD) Glucagon (GLUCAGON) 1 MG ASDIR PRN IM Insulin Human Regular (MYXREDLIN 100 UNITS/NS 100ML) 100 ML ASDIR IV (DC ) Docusate Sodium (COLACE) 100 MG BID PO Ipratropium Basom (ATROVENT) 500 MCG RTQ6H NEB Furosemide (LASIX 40 mg/4 mL INJECTION) 40 MG BID 9A 5P IV Mupirocin (BACTROBAN 2% 22 GM OINTMENT) 1 APPLIC BID NASAL Sodium Chloride (SODIUM CHLORIDE 0.9%) 100 ML ASDIR PRN IV (DC) Sodium Chloride (SODIUM CHLORIDE 0.9%) 100 ML ASDIR PRN IV (DC) Sterile Water (WATER FOR INJECTION) 5 ML ASDIR PRN IV Amiodarone HCl (CORDARONE) 200 MG DAILY PO Aspirin (ASPIRIN) 81 MG DAILY PO Clopidogrel Bisulfate (Plavix) 75 MG DAILY PO Cyanocobalamin (Vitamin B-12 500 mcg tab) 500 MCG DAILY PO Duloxetine HCl (CYMBALTA) 20 MG DAILY PO Ferrous Sulfate (FERROUS SULFATE) 325 MG DAILY PO Pantoprazole (PROTONIX) 40 MG DAILY@0600 PO Quetiapine Fumarate (SeroqueL) 200 MG BEDTIME PO Atorvastatin Calcium (LIPITOR) 40 MG 2100 PO Gabapentin (NEURONTIN) 600 MG TID PO (DC) Metoprolol Tartrate (LOPRESSOR) 12.5 MG Q12HR PO Hydrocodone Bitart/Acetaminophen (NORCO 5/325) 1 TAB Q6H PRN PRN PO (DC) Magnesium Sulfate (MAGNESIUM SULFATE 2GM/SWFI 50ML) 50 ML ASDIR PRN IV Potassium Chloride (POTASSIUM CHLORIDE 20MEQ TAB.ER) 20 MEQ ASDIR PRN PO Potassium Chloride (POTASSIUM CHLORIDE 20MEQ TAB.ER) 40 MEQ ASDIR PRN PO Acetaminophen (TYLENOL) 650 MG Q4H PRN PRN PO Acetaminophen (TYLENOL) 650 MG Q4H PRN PRN RECTAL Al Hydrox/Mg Hydrox/Simethicone (MYLANTA) 30 ML Q4H PRN PRN PO Docusate Sodium (COLACE) 100 MG BID PRN PRN PO Ondansetron HCl (ZOFRAN) 4 MG Q4H PRN PRN IV Physical Exam General appearance: pleasant Wound/Incision: Location: sternal incision Site condition: healing well Head/eyes: atraumatic, EOMI, normocephalic, normal conjunctiva/sclera, PERRLA ENT: normal pharynx, moist mucosal membranes Neck: supple, midline, trachea Cardiovascular: regular rate rhythm, TTP over anterior sternal area Respiratory: clear to auscultation, no distress Abdomen: soft, non-tender, no distention, active bowel sounds in all quadrant. Extremities: moves all, no edema Neuro/REWRITER: alert, oriented X 3, no motor deficits, no sensory deficits, CNII-XII grossly intact Psychiatry: normal mood Results Findings/data: Laboratory Tests: 11/28 11/28 11/27 11/27 11/27 0229 0229 1805 1142 0845 Chemistry Sodium (134 - 147 mEq/L) 140 139 Potassium (3.4 - 5.0 mEq/L) 4.3 4.0 Chloride (100 - 108 mEq/L) 106 101 Carbon Dioxide (21 - 33 mEq/l) 27 28 Anion Gap (0 - 20) 11 14 BUN (7 - 25 mg/dL) 13 16 Creatinine (0.6 - 1.3 mg/dL) 0.8 1.0 Glomerular Filtr Rate (90 - 95) 88.6 L 67.8 L Glucose (77 - 141 mg/dL) 191 H 222 H POC Glucose (70 - 110 MG/DL) 135 H 119 H Calcium (8.0 - 10.5 mg/dL) 8.8 8.6 Magnesium (1.6 - 2.6 mg/dL) 1.96 1.96 Total Bilirubin (0.0 - 1.0 mg/dL) 0.30 Direct Bilirubin (0.1 - 0.3 MG/DL) 0.10 Indirect Bilirubin (MG/DL) 0.20 AST (8 - 34 IUnit/L) 34 ALT (10 - 49 IUnit/L) 54 H Total Alk Phosphatase (20 - 125 IUnit/L) 109 Total Protein (5.7 - 8.2 g/dL) 6.4 Albumin (3.4 - 5.0 g/dL) 2.50 L Hematology WBC (4.5 - 11.0 x10 3/uL) 8.3 RBC (3.54 - 5.02 x10 6/uL) 3.44 L Hgb (11.0 - 15.0 g/dL) 8.5 L Hct (33.0 - 45.0 %) 29.1 L MCV (81.0 - 99.0 fL) 84.6 MCH (27.0 - 33.0 pg) 24.7 L MCHC (33.0 - 37.0 g/dL) 29.2 L RDW (11.5 - 14.5 %) 19.7 H Plt Count (150 - 400 x10 3/uL) 228 MPV (7.0 - 9.0 fL) 10.6 H Neut % (Auto) (56.0 - 77.0 %) 68.4 Lymph % (Auto) (14.0 - 32.0 %) 17.4 [place] % (Auto) (4.8 - 9.0 %) 6.3 Eos % (Auto) (0.3 - 3.7 %) 6.9 H Baso % (Auto) (0.0 - 2.0 %) 0.5 Neut # (Auto) (2.0 - 7.6 x10 3/uL) 5.65 Lymph # (Auto) (1.0 - 3.8 x10 3/uL) 1.44 [place] # (Auto) (0.1 - 0.8 x10 3/uL) 0.52 Eos # (Auto) (0.0 - 0.2 x10 3/uL) 0.57 H Baso # (Auto) (0.0 - 0.2 x10 3/uL) 0.04 Abs Immat Gran (auto) (0.00 - 0.03 0.04 H x10 3/uL) Immature Gran % (0.0 - 2.0 %) 0.5 Nucleated RBC % (0 - 0 %) 0.0 Nucleated RBCs # (Man) (0.0 - 0.1 0.00 x10 3/uL) Diagnosis, Assessment Plan Free text A P: Patient is a 54-year-old female who presents with the following: Past medical history: DM, HTN, CAD Past surgical history: CABG 11/09/24, ALAA, PP, EVH, chest tube placement x2, pericardial window 11/26/24 Family history: Noncontributory Social history: denies drugs, alcohol, smoking Allergies: NKDA Acute postoperative pain -S/p CABG -S/P pericardial window -S/P right chest tube placement -Tylenol 650 mg PO q4h PRN pain scale 1-3 -[place] 10/325 mg PO q4h PRN pain scale 4-10, first line (incr dose 11/27) -Dilaudid 0.5 mg IV q6h PRN pain scale 7-10, second line (11/27, incr dose 11/28 ) -Manageable Hereditary and idiopathic neuropathy -Gabapentin 1200 mg PO TID (incr dose 11/27) -Amitriptyline 25 mg PO qhs (11/27) -Manageable Muscle spasms -Robaxin 500 mg PO q8h PRN (11/27) -Manageable CAD, hypertension -MAR reviewed, continue present cardiac medications -We will monitor hypertension and tachycardia associated with uncontrolled pain. We will monitor for bradycardia and hypotension associated with oversedation with narcotics Constipation -We will monitor while utilizing opioid narcotic medications -Adequate fluid intake also discussed -Miralax 17 g PO daily -Colace 100 mg PO BID -Dulcolax 10 mg PO daily PRN -Colace 100 mg PO BID PRN -Manageable Disposition: DC date: RX sent for: Pharmacy: [facility] #[id number] ([id number]) [address] [place] [address] Patient has failed conservative medical therapy. Patient will require monitoring while utilize narcotic medications for any adverse effects, and will adjust as needed. Patient will require monitoring drug therapy for toxic effects. Plan of care discussed with patient and nurse. All diagnostics of last 24 hours been reviewed. Have reviewed other specialties notes. Risks versus benefits of opioid medications were reviewed to include, but not limited to respiratory depression, accidental overdose, altered mental status, sudden , constipation which could result in bowel obstruction, seizures, withdrawal, dependency addiction, risk for falls. Case discussed with Dr Keith whom agrees. [place] [employer] report reviewed: Yunier Pratt 1970 Summary Total Prescriptions 7 Total Private Pay 0 Total Prescribers 5 Total Pharmacies 2 Narcotics (excluding Buprenorphine) Current MME/day 0.00 30 Day Avg MME/day 6.00 Current Qty 0 11/21/2024 11/21/2024 1 ACETAMINOPHEN-COD #4 TABLET 20.00 5 Ar Qur [id number] [facility] ( [id number]) 0 36.00 MME Comm Ins [place] 2024 2024 1 HYDROCODONE-ACETAMIN 5-325 MG 20.00 3 Pa o [id number] [facility] ([id number]) 0 33.33 MME Comm Ins [place] 2024 2024 1 TRAMADOL-ACETAMINOPHN 37.5-325 20.00 3 Pa o [id number] [facility] ([id number]) 0 50.00 MME Comm Ins [place] [facility] ([id number]) [address] [place] [address] [facility] #[id number] ([id number]) [address] [place] [address] at 1239 RPT #:[id number] END OF REPORT [facility] 2024-11-28 08:12:00 [facility] ([facility]) Cardiothoracic Surgery Prog REPORT#:[id number] REPORT STATUS: Signed REPORT INITIALIZATION DATE:11/28/24 TIME: 811 PATIENT: YUNIER PRATT UNIT #: [id number] ROOM/BED: [place] [address] : [birth year] AGE: 54 SEX: F ATTEND: Antoinette Ross MD ADM AUTHOR: Elise Harvey Physic REPT SERVICE DT/TIME: 11/28/24811 * ALL edits or amendments must be made on the electronic/computer document * General Post-op: post surgery rounds Subjective Chief complaint: Post op pericardial window Review of Systems Constitutional: Denies: chills, fatigue, generalized weakness. Skin: Denies: abrasion, contusion, ecchymosis. Allergy/Immun: Denies: allergic reaction, hives, itching. Eyes: Denies: redness, visual loss/blurred, diplopia. Cardiovascular: Denies: chest pain, palpitations. GI: Denies: abdominal pain, nausea, vomiting. : Denies: dysuria, flank pain. Heme: Denies: adenopathy, bleeding. Neuro: Denies: dizziness, seizure, syncope. All systems rev neg: except as marked Objective General VS/I O Last Documented: Result Date Time Pulse Ox 95 11/28 0705 FiO2 21 11/28 0705 O2 Delivery Room air 11/28 0705 Temp 98.3 11/28 0400 Pulse 61 11/28 0237 Resp 18 11/28 0237 B/P 142/76 11/28 0121 B/P Mean 104 11/28 0121 O2 Flow Rate 2 11/26 1600 24 hour I O ending at 0700: 11/28 0700 11/27 1900 Intake Total 450.00 480 Output Total 700 1515 Balance -250.00 -1035 Intake, IV 50.00 Intake, Oral 400 480 Number 0 Bowel Movements Number 0 Incontinent Voids Number Voids 4 Output, Chest 15 Tube Drainage Output, Stool 0 Output, Urine 700 1500 Patient 76.4 kg 77.111 kg Weight Weight Standing scale Measurement Method PATIENT WEIGHT: Weight (lb): 168 Weight (oz): 6.93 Weight (kg): 76.400 Physical Exam General appearance: alert, awake, oriented Wound/incision: Location: sternum Site condition: dressing clean dry, dressing intact HEENT: mucosal membranes moist Cardiovascular: normal heart sounds Respiratory: aerating well, symmetric expansion Abdomen: soft, non-tender Genitourinary: no bladder distention, no flank pain Extremities: dry, moves all Neuro/REWRITER: alert, oriented X 3 Skin: dry, intact Psychiatry: normal affect, normal mood Quality: Trauma Gen Surg Current Medications Current medication review: I attest that the foregoing medication list in the medical record is true, accurate, and complete to the best of my knowledge. Diagnosis, Assessment Plan Hospital course to date: This is a 54-year-old female with a past medical history of hypertension, diabetes on insulin, and neuropathy who had a recent NSTEMI and had severe MVD. Patient had successful CABG x 5 (ASH to LAD, saphenous vein to diagonal, saphenous vein to first marginal, saphenous vein to second marginal, saphenous vein to PDA), ALAA on 11/09/24. Patient had bilateral pleural effusions drained prior to discharge on 11/21/24 with pigtail chest tube catheters, later in which were removed. Patient denies any alcohol or drug use. He does report half pack a day smoking for the past 40 years. 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 Patient presents to OSH with shortness of breath and reports acute onset of symptoms that began 2-3 days ago. She admits to associated cough productive sputum, chest pain and global swelling. Her CXR revealed a pleural effusion. Her notable lab findings were as follows: H/H 8.5/26.2, AST 105, ALT, 95, alk phos 124, troponin 530.5 and BNP 4063. She denies fever, abdominal pain, nausea /vomiting, melena, hematuria, hematochezia or calf pain. Assessment/plan: 1. Shortness of breath 2. Pleural effusion 3. Status post CABG 4. Hypertension 5. Neuropathy 6. Type 2 diabetes Admit to observation unit Monitor on telemetry for arrhythmia Labs reviewed, replace electrolytes as needed Diurese patient with IV Lasix Echocardiogram Encourage incentive spirometer use PT/OT Resume home medications and adjust as needed SCDs for DVT prophylaxis Cardiology consulted Further recommendations based on clinical course Patient seen and examined. Discussed plan of care with patient, all patient's questions have been answered MDM done by Dr. Little 11/25/24 Patient alert, awake, oriented, reports feeling better Labs reviewed, replace electrolytes as needed Wean off oxygen, currently on 2 L nasal cannula, I-S use encouraged Normal sinus rhythm, monitoring blood pressure closely Echocardiogram pending Strict I's and O's and daily weights, weight trending down, diurese with Lasix, give Diamox today Out of bed to chair for all meals, ambulate, PT OT following Patient seen and examined. Discussed plan of care with patient, all questions answered. MDM done by Dr. Little 11/27/24 Patient alert, awake, oriented, reports pain. Pain management following. Labs reviewed, replace electrolytes as needed Wean off oxygen, on Room Air, I-S use encouraged Normal sinus rhythm, monitoring blood pressure closely Minimal drianage on Chest tubes. CT Dc'd Strict I's and O's and daily weights, weight trending down, Out of bed to chair for all meals, ambulate, PT OT following Patient seen and examined. Consult Pain management. 11/28/24 Patient alert, awake, oriented, pain management following. Labs reviewed, replace electrolytes as needed On room air. Chest x-ray reviewed shows increased right pleural effusion. Will obtain pigtail cath placement. Normal sinus rhythm, monitoring blood pressure closely Strict I's and O's and daily weights, weight trending down, Out of bed to chair for all meals, ambulate, PT OT following IR consulted for pigtail placement Continue supportive care. Patient seen examined Dr. Ross plan of care discussed with patient. Consultants: cardiology at 0510 at 1413 RPT #:[id number] END OF REPORT [facility] 2024-11-27 16:20:00 [facility] ([facility]) Critical Care Progress Note REPORT#:[id number] REPORT STATUS: Signed REPORT INITIALIZATION DATE:11/27/24 TIME: 1620 PATIENT: YUNIER PRATT UNIT #: [id number] ROOM[place]BED: [facility] : 72 AGE: 54 SEX: F ATTEND: Antoinette Ross MD ADM AUTHOR: Anshul Wharton MD REPT SERVICE DT/TIME: 11/27/24 1620 * ALL edits or amendments must be made on the electronic/computer document * Subjective Chief complaint: Shortness of breath HPI: 54-year-old female past medical history of hypertension, diabetes on insulin, neuropathy, NSTEMI with a recent CABG on 11/09/2024 was discharged home. Patient presented to outside hospital shortness of breath. Echo was done which showed pericardial effusion and bilateral pleural effusions. Patient was transferred here for pericardial window creation. Patient has been receiving IV diuresis. Patient underwent pericardial drainage today and was brought to CVICU extubated on room air. Complaining of pain in the left shoulder. Patient has a mediastinal chest tube and a left pleural chest tube. Comments: Interval history- Patient still having a lot of pain issues. Will discontinue chest tubes. Pain management evaluation Objective General VS/I O Last Documented: Result Date Time Pulse Ox 70 11/27 1400 B/P 131/74 11/27 1400 B/P Mean 97 11/27 1400 Pulse 68 / 1400 Resp 21 11/27 1400 FiO2 21 11/27 0721 O2 Delivery Room air 11/27 0721 Temp 36.8 11/27 0400 O2 Flow Rate 2 11/26 1600 24 hour I O ending at 0700: 11/27 0700 11/26 1900 Intake Total 546.00 480 Output Total 735 1270 Balance -189.00 -790 Intake, IV 66.00 Intake, Oral 480 480 Number 1 Bowel Movements Output, Chest 135 170 Tube Drainage Output, Urine 600 1100 Patient 77.5 kg Weight Weight Standing scale Measurement Method PATIENT WEIGHT: Weight (lb): 170 Weight (oz): 0 Weight (kg): 77.111 Medications: Active Meds + DC'd Last 24 Hrs Polyethylene Glycol (MIRALAX) 17 GM DAILY PO Amitriptyline HCl (ELAVIL) 25 MG BEDTIME PO Gabapentin (NEURONTIN) 1,200 MG TID PO Gabapentin (NEURONTIN) 1,200 MG ONCE ONE PO (DC) Methocarbamol (ROBAXIN) 500 MG Q8H PRN PRN PO Bisacodyl (DULCOLAX) 10 MG DAILY PRN PRN PO Naloxone HCl (NARCAN) 0.4 MG Q2M PRN PRN IV Hydrocodone Bitart/Acetaminophen (NORCO 7.5/325 TABLET) 1 TAB Q4H PRN PRN PO Morphine Sulfate (morphine SULFATE) 2 MG ONCE ONE IV (DC) Dextrose/Water (DEXTROSE 10% IN WATER) 125 ML ASDIR PRN IV (CKD) Dextrose/Water (DEXTROSE 10% IN WATER) 250 ML ASDIR PRN IV (CKD) Glucagon (GLUCAGON) 1 MG ASDIR PRN IM Insulin Human Regular (MYXREDLIN 100 UNITS/NS 100ML) 100 ML ASDIR IV (DC ) Insulin Human Regular (MYXREDLIN 100 UNITS/NS 100ML) 100 ML ASDIR IV (DC ) Docusate Sodium (COLACE) 100 MG BID PO Ipratropium Basom (ATROVENT) 500 MCG RTQ6H NEB Acetaminophen (OFIRMEV 10MG/ML) 100 ML Q6H IV (DC) Morphine Sulfate (morphine SULFATE) 2 MG ONCE ONE IV (DC) Potassium Chloride (POTASSIUM CHLORIDE 20MEQ TAB.ER) 20 MEQ ONCE ONE PO (DC) Methocarbamol (ROBAXIN) 1,000 MG Q8HR IV (DC) Furosemide (LASIX 40 mg/4 mL INJECTION) 40 MG BID 9A 5P IV Mupirocin (BACTROBAN 2% 22 GM OINTMENT) 1 APPLIC BID NASAL Cefazolin Sodium (ceFAZolin 2 GM Inj) 2 GM PREOP ONCALL IV (DC) Sodium Chloride (SODIUM CHLORIDE) 20 ML Sodium Chloride (SODIUM CHLORIDE 0.9%) 100 ML ASDIR PRN IV (DC) Sodium Chloride (SODIUM CHLORIDE 0.9%) 100 ML ASDIR PRN IV (DC) Insulin Glargine (Semglee) 10 UNIT DAILY SUBQ (DC) Sterile Water (WATER FOR INJECTION) 5 ML ASDIR PRN IV Amiodarone HCl (CORDARONE) 200 MG DAILY PO Aspirin (ASPIRIN) 81 MG DAILY PO Clopidogrel Bisulfate (Plavix) 75 MG DAILY PO Cyanocobalamin (Vitamin B-12 500 mcg tab) 500 MCG DAILY PO Duloxetine HCl (CYMBALTA) 20 MG DAILY PO Ferrous Sulfate (FERROUS SULFATE) 325 MG DAILY PO Pantoprazole (PROTONIX) 40 MG DAILY@0600 PO Quetiapine Fumarate (SeroqueL) 200 MG BEDTIME PO Atorvastatin Calcium (LIPITOR) 40 MG 2100 PO Gabapentin (NEURONTIN) 600 MG TID PO (DC) Insulin Human Lispro (Admelog) 0 AC HS SUBQ (DC) Metoprolol Tartrate (LOPRESSOR) 12.5 MG Q12HR PO Dextrose/Water (DEXTROSE 10% IN WATER) 125 ML ASDIR PRN IV (DC) Dextrose/Water (DEXTROSE 10% IN WATER) 250 ML ASDIR PRN IV (DC) Glucagon (GLUCAGON) 1 MG ASDIR PRN IM (DC) Hydrocodone Bitart/Acetaminophen (NORCO 5/325) 1 TAB Q6H PRN PRN PO (DC) Magnesium Sulfate (MAGNESIUM SULFATE 2GM/SWFI 50ML) 50 ML ASDIR PRN IV Potassium Chloride (POTASSIUM CHLORIDE 20MEQ TAB.ER) 20 MEQ ASDIR PRN PO Potassium Chloride (POTASSIUM CHLORIDE 20MEQ TAB.ER) 40 MEQ ASDIR PRN PO Acetaminophen (TYLENOL) 650 MG Q4H PRN PRN PO Acetaminophen (TYLENOL) 650 MG Q4H PRN PRN RECTAL Al Hydrox/Mg Hydrox/Simethicone (MYLANTA) 30 ML Q4H PRN PRN PO Docusate Sodium (COLACE) 100 MG BID PRN PRN PO Ondansetron HCl (ZOFRAN) 4 MG Q4H PRN PRN IV Results Findings/data: Laboratory Tests 11/27 11/27 11/27 11/27 11/27 1142 0845 0549 0417 0251 Chemistry Sodium (134 - 147 mEq/L) 137 Potassium (3.4 - 5.0 mEq/L) 4.2 Chloride (100 - 108 mEq/L) 105 Carbon Dioxide (21 - 33 mEq/l) 24 Anion Gap (0 - 20) 12 BUN (7 - 25 mg/dL) 14 Creatinine (0.6 - 1.3 mg/dL) 0.9 Glomerular Filtr Rate (90 - 95) 76.9 L Glucose (77 - 141 mg/dL) 223 H POC Glucose (70 - 110 MG/DL) 135 H 119 H 121 H 200 H Calcium (8.0 - 10.5 mg/dL) 8.6 Magnesium (1.6 - 2.6 mg/dL) 2.23 11/27/07 0207 2356 2111 2003 1659 Chemistry POC Glucose (70 - 110 MG/DL) 260 H 372 H 445 H 338 H 277 H Laboratory Tests 11/27 0251 Hematology WBC (4.5 - 11.0 x10 3/uL) 7.0 RBC (3.54 - 5.02 x10 6/uL) 3.53 L Hgb (11.0 - 15.0 g/dL) 8.7 L Hct (33.0 - 45.0 %) 30.1 L MCV (81.0 - 99.0 fL) 85.3 MCH (27.0 - 33.0 pg) 24.6 L MCHC (33.0 - 37.0 g/dL) 28.9 L RDW (11.5 - 14.5 %) 19.3 H Plt Count (150 - 400 x10 3/uL) 197 MPV (7.0 - 9.0 fL) 11.4 H Neut % (Auto) (56.0 - 77.0 %) 83.5 H Lymph % (Auto) (14.0 - 32.0 %) 9.6 L [place] % (Auto) (4.8 - 9.0 %) 6.1 Eos % (Auto) (0.3 - 3.7 %) 0.1 L Baso % (Auto) (0.0 - 2.0 %) 0.1 Neut # (Auto) (2.0 - 7.6 x10 3/uL) 5.85 Lymph # (Auto) (1.0 - 3.8 x10 3/uL) 0.67 L [place] # (Auto) (0.1 - 0.8 x10 3/uL) 0.43 Eos # (Auto) (0.0 - 0.2 x10 3/uL) 0.01 Baso # (Auto) (0.0 - 0.2 x10 3/uL) 0.01 Abs Immat Gran (auto) (0.00 - 0.03 x10 3/uL) 0.04 H Immature Gran % (0.0 - 2.0 %) 0.6 Nucleated RBC % (0 - 0 %) 0.0 Nucleated RBCs # (Man) (0.0 - 0.1 x10 3/uL) 0.00 Immature Plt Fraction (0.9 - 11.2 %) 5.3 Laboratory Tests 11/27/24 0251: [Embedded Image Not Available] Microbiology: 11/25 132 NASAL: MSSA Surveillance Screen - ORD 11/25 1321 NASAL: MRSA DNA Surveillance Screen - ORD 11/24 1901 Blood: Blood Culture - RES 11/24 1901 Blood: Blood Culture Gram Stain - RES Free Text Obj Notes Free Text Obj Notes: GEN: Elderly female in no acute distress, interactive and conversational HEENT: Atraumatic, normocephalic, moist mucous membranes NECK: Supple, good range of motion, no tenderness LUNGS: Symmetrical air entry, no acute respiratory distress CV: S1, S2 regular rate and rhythm GI: Abdomen is soft, not tender or distended EXT/Musc: No edema or cyanosis. Pedal pulses present Skin: Surgical site clean, dry and intact. Warm to touch NEURO: Awake, alert and oriented x3. No facial droop or focal deficit Diagnosis, Assessment Plan Free text A P: 54-year-old female admitted to CVICU Status post pericardial window History of recent CABG on 11/09/2024 Bilateral pleural effusions Diabetes with hemoglobin A1c 8 Hypertension Hyperlipidemia Pain control. Will add Robaxin. [place]. Patient is being diuresed with Lasix 40 IV twice daily. Is on glargine 10 units daily. Replete electrolytes. Creatinine stable. Continue aspirin Plavix. Resume home medications the Seroquel. On beta-trell. In sinus rhythm. SCDs for DVT prophylaxis. Discontinue the pleural chest tube and mediastinal Full code. Consultants: cardiology Quality: [facility] Crit Care Current Medications Current medication review: I attest that the foregoing medication list in the medical record is true, accurate, and complete to the best of my knowledge. at 1621 RPT #:[id number] END OF REPORT [facility] 2024-11-27 15:28:00 [facility] ([facility]) Pain Management Consult Note REPORT#:[id number] REPORT STATUS: Signed REPORT INITIALIZATION DATE:11/27/24 TIME: 1528 PATIENT: YUNIER PRATT UNIT #: [id number] ROOM/BED: [place] [address] : 74 AGE: 54 SEX: F ATTEND: Antoinette Ross MD ADM AUTHOR: Chandler Marinelli REPT SERVICE DT/TIME: 11/27/24 2308 * ALL edits or amendments must be made on the electronic/computer document * History of Present Illness Primary Care Physician: Antoinette Ross MD HPI: Patient seen and examined in the ICU. She had a recent CABG. She was discharged and came back to the hospital with chest discomfort. She was found to have a pericardial effusion, s/p pericardial window. Anterior chest discomfort, aching, sore, intermittent, rated 7/10 at worst. aggravated with palpation, better with narcotic medications. Current dose of [place] 5/325 mg is not helping her pain. She also has history of neuropathy issues. Review of Systems Additional notes: 14 point ROS undertaken unremarkable except as noted in HPI, past medical and surgical history History Past History Past Medical History: Reports: COPD, Coronary artery disease, Diabetes mellitus, Hypertension, Dyslipidemia. Medications: Home Medications: Medication Dose/Rte/Freq Days Qty Entered Last Max Daily Dose Reviewed DULoxetine (CYMBALTA) 20 MG PO DAILY 11/08/24 11/24/24 Strength: 20 MG CAP. 0304 1457 GABAPENTIN (NEURONTIN) 600 MG PO TID 2 11/08/24 11/24/24 Strength: 300 MG CAP 0307 1457 QUEtiapine XR 200 MG PO BEDTIME 11/24/24 11/24/24 (SEROquel XR) 1458 1458 Strength: 200 MG TAB.SR.24H CLOPIDOGREL (PLAVIX) 75 MG PO DAILY 60 60 11/21/24 11/24/24 Strength: 75 MG TAB 0734 1457 FERROUS SULFATE 325 MG PO DAILY 30 30 11/21/24 11/24/24 (FEOSOL) 0734 1457 Strength: 325 MG (65 MG IRON) TAB AMIODARONE (PACERONE) 200 MG PO DAILY 7 7 11/21/24 11/24/24 Strength: 200 MG TAB 0736 1457 ATORVASTATIN (LIPITOR) 40 MG PO 2100 30 30 11/21/24 11/24/24 Strength: 40 MG TAB 0736 1457 METOPROLOL TARTRATE 12.5 MG PO Q12HR 30 30 11/21/24 11/24/24 (LOPRESSOR) 0736 1457 Strength: 25 MG TAB ASPIRIN 81 MG PO DAILY 30 30 11/21/24 11/24/24 Strength: 81 MG TAB.CHEW [address] 40 MG PO 30 30 11/21/24 11/24/24 (PROTONIX) DAILY@0600 0737 1457 Strength: 40 MG TAB.DR CYANOCOBALAMIN 500 MCG PO DAILY 30 30 11/21/24 11/24/24 (VITAMIN B-12) 0737 1457 Strength: 500 MCG TAB FUROSEMIDE (LASIX) 40 MG PO DAILY 7 7 11/21/24 11/24/24 Strength: 40 MG TAB 0738 1457 Current Hospital Medications: Anti-Infective Agents Sig/Clarke Start time Last Medication Dose Route Stop Time Status Admin Cefazolin Sodium 2 GM PREOP ONCALL 11/26 0500 DC (ceFAZolin 2 GM Inj) IV 11/26 2359 Sodium Chloride 20 ML (SODIUM CHLORIDE) Antihistamine Drugs Sig/Clarke Start time Last Medication Dose Route Stop Time Status Admin Diphenhydramine HCl 12.5 MG PACU ONCE PRN 11/26 1415 DC (BENADRYL) IV 11/27 0005 Promethazine HCl 25 MG PACU ONCE PRN 11/26 1415 DC (PHENERGAN) PO 11/27 0005 Autonomic Drugs Sig/Clarke Start time Last Medication Dose Route Stop Time Status Admin Ipratropium Basom 500 MCG RTQ6H 11/26 2100 AC 11/27 (ATROVENT) NEB 02/24 2059 1444 Methocarbamol 1,000 MG Q8HR 11/26 1545 DC 11/27 (ROBAXIN) IV 11/27 0601 0557 Blood Formation,Coagulation Sig/Clarke Start time Last Medication Dose Route Stop Time Status Admin Clopidogrel Bisulfate 75 MG DAILY 11/25 899 AC 11/27 (Plavix) PO 02/23 0859 0813 Ferrous Sulfate 325 MG DAILY 11/25 899 AC 11/27 (FERROUS SULFATE) PO 02/23 0859 0814 Cardiovascular Drugs Sig/Clarke Start time Last Medication Dose Route Stop Time Status Admin Hydralazine HCl 5 MG PACU Q10MIN PRN PRN 11/26 1415 DC (APRESOLINE) IV 11/27 0005 Labetalol HCl 5 MG PACU Q10MIN PRN PRN 11/26 1415 DC (labetalol 100 mg/20 IV 11/27 0005 mL Inj) Amiodarone HCl 200 MG DAILY 11/25 899 AC 11/27 (CORDARONE) PO 02/23 08 08 Atorvastatin Calcium 40 MG 11/24 AC 11/26 (LIPITOR) PO 12/24 Metoprolol Tartrate 12.5 MG Q12HR 11/24 2099 AC 11/27 (LOPRESSOR) PO 02/22 Central Nervous System Agents Sig/Clarke Start time Last Medication Dose Route Stop Time Status Admin Hydrocodone Bitart/ 1 TAB Q4H PRN PRN 11/27 1330 AC 11/27 Acetaminophen PO 12/19 1200 1449 (NORCO 7.5/325 TABLET) Morphine Sulfate 2 MG ONCE ONE 11/27 1230 DC 11/27 (morphine SULFATE) IV 11/27 1231 1247 Acetaminophen 100 ML Q6H 11/26 1930 DC 11/27 (OFIRMEV 10MG/ML) IV 11/27 0744 0807 Morphine Sulfate 2 MG ONCE ONE 11/26 1800 DC 11/26 (morphine SULFATE) IV 11/26 1801 1803 Fentanyl Citrate 100 MCG PACU Q10MIN PRN PRN 11/26 1415 DC 11/26 (SUBLIMAZE) IV 11/27 0005 1418 Fentanyl Citrate 50 MCG PACU Q10MIN PRN PRN 11/26 1415 DC (SUBLIMAZE) IV 11/27 0005 Hydrocodone Bitart/ 1 TAB PACU ONCE 11/26 1415 DC Acetaminophen PO 11/27 0005 (NORCO 5/325) Hydromorphone HCl 1 MG PACU Q10MIN PRN PRN 11/26 1415 DC 11/26 (DILAUDID) IV 11/27 0005 1505 Hydromorphone HCl 0.5 MG PACU Q5MIN PRN PRN 11/26 1415 DC (DILAUDID) IV 11/27 0005 Meperidine HCl 12.5 MG PACU ONCE PRN 11/26 1415 DC (DEMEROL 50MG/ML) IV 11/27 0005 Morphine Sulfate 2 MG PACU Q10MIN PRN PRN 11/26 1415 DC (morphine SULFATE) IV 11/27 0005 Tramadol HCl 50 MG PACU ONCE 11/26 1415 DC (ULTRAM) PO 11/27 0005 Aspirin 81 MG DAILY 11/25 899 AC 11/27 (ASPIRIN) PO 02/23 0859 0814 Duloxetine HCl 20 MG DAILY 11/25 09 AC 11/27 (CYMBALTA) PO 02/23 0859 0813 Quetiapine Fumarate 200 MG BEDTIME 11/24 2214 AC 11/26 (SeroqueL) PO 02/22 Gabapentin 600 MG TID 11/24 2100 AC 11/27 (NEURONTIN) PO 02/22 2059 1450 Hydrocodone Bitart/ 1 TAB Q6H PRN PRN 11/24 1645 DC 11/27 Acetaminophen PO 11/29 1644 0935 (NORCO 5/325) Magnesium Sulfate 50 ML ASDIR PRN 11/24 1645 AC (MAGNESIUM SULFATE IV 02/22 1644 2GM/SWFI 50ML) Acetaminophen 650 MG Q4H PRN PRN 11/24 1630 AC 11/27 (TYLENOL) PO 02/22 1629 0318 Acetaminophen 650 MG Q4H PRN PRN 11/24 1630 AC (TYLENOL) RECTAL 02/22 1629 Electrolytic, Caloric, And Prosper Sig/Clarke Start time Last Medication Dose Route Stop Time Status Admin Dextrose/Water 125 ML ASDIR PRN 11/26 2145 CKD (DEXTROSE 10% IN IV 02/25 2144 WATER) Dextrose/Water 250 ML ASDIR PRN 11/26 2145 CKD (DEXTROSE 10% IN IV 02/25 2144 WATER) Potassium Chloride 20 MEQ ONCE ONE 11/26 1700 DC 11/26 (POTASSIUM CHLORIDE PO 11/26 1701 1719 20MEQ TAB.ER) Furosemide 40 MG BID 9A 5P 11/26 0900 AC 11/27 (LASIX 40 mg/4 mL IV 02/22 1659 0814 INJECTION) Sodium Chloride 100 ML ASDIR PRN 11/25 1330 DC (SODIUM CHLORIDE IV 11/27 1318 0.9%) Sodium Chloride 100 ML ASDIR PRN 11/25 1330 DC (SODIUM CHLORIDE IV 11/27 1318 0.9%) Dextrose/Water 125 ML ASDIR PRN 11/24 1800 DC (DEXTROSE 10% IN IV 02/22 175 WATER) Dextrose/Water 250 ML ASDIR PRN 11/24 1800 DC (DEXTROSE 10% IN IV 02/22 175 WATER) Potassium Chloride 20 MEQ ASDIR PRN 11/24 1645 AC (POTASSIUM CHLORIDE PO 02/22 1644 20MEQ TAB.ER) Potassium Chloride 40 MEQ ASDIR PRN 11/24 1645 AC (POTASSIUM CHLORIDE PO 02/22 1644 20MEQ TAB.ER) Gastrointestinal Drugs Sig/Clarke Start time Last Medication Dose Route Stop Time Status Admin Docusate Sodium 100 MG BID 11/26 2100 AC 11/27 (COLACE) PO 02/24 2059 0814 Ondansetron HCl 4 MG PACU ONCE PRN 11/26 1415 DC (ZOFRAN) IV 11/27 0005 Pantoprazole 40 MG DAILY@0600 11/25 0600 AC 11/27 (PROTONIX) PO 02/23 0559 0515 Al Hydrox/Mg Hydrox/ 30 ML Q4H PRN PRN 11/24 1630 AC Simethicone PO 02/22 1629 (MYLANTA) Docusate Sodium 100 MG BID PRN PRN 11/24 1630 AC (COLACE) PO 02/22 1629 Ondansetron HCl 4 MG Q4H PRN PRN 11/24 1630 AC (ZOFRAN) IV 02/22 1629 Hormones And Synthetic Substit Sig/Clarke Start time Last Medication Dose Route Stop Time Status Admin Glucagon 1 MG ASDIR PRN 11/26 2145 AC (GLUCAGON) IM 02/24 2144 Insulin Human Regular 100 ML ASDIR 11/26 2145 DC 11/26 (MYXREDLIN 100 UNITS/ IV 02/24 2144 2149 NS 100ML) Insulin Human Regular 100 ML ASDIR 11/26 2130 DC (MYXREDLIN 100 UNITS/ IV 02/24 2129 NS 100ML) Insulin Human Lispro 0 PACU ONCE PRN 11/26 1415 DC (Admelog) SUBQ 11/27 0005 Insulin Glargine 10 UNIT DAILY 11/25 0930 DC 11/26 (Semglee) SUBQ 02/23 0929 0844 Insulin Human Lispro 0 AC HS 11/24 2100 DC 11/26 (Admelog) SUBQ 02/22 2059 2107 Glucagon 1 MG ASDIR PRN 11/24 1800 DC (GLUCAGON) IM 02/22 1759 Local Anesthetics (Parenteral) Sig/Clarke Start time Last Medication Dose Route Stop Time Status Admin Ropivacaine 150 MG ASDIR PRN 11/26 1415 DC (NAROPIN 0.5% 150 MG/ LOCAL 11/27 0005 30mL) Pharmaceutical Aids Sig/Clarke Start time Last Medication Dose Route Stop Time Status Admin Sterile Water 5 ML ASDIR PRN 11/25 929 AC (WATER FOR INJECTION) IV 02/23 929 Skin And Mucous Membrane Agent Sig/Clarke Start time Last Medication Dose Route Stop Time Status Admin Mupirocin 1 APPLIC BID 11/26 899 AC 11/27 (BACTROBAN 2% 22 GM NASAL 11/30 210 0823 OINTMENT) Vitamins Sig/Clarke Start time Last Medication Dose Route Stop Time Status Admin Cyanocobalamin 500 MCG DAILY 11/25 899 AC 11/27 (Vitamin B-12 500 PO 02/23 0859 0814 mcg tab) Allergies: Coded Allergies: heparin (BLOOD CLOT 11/24/24) HIT (+) Objective Physical Exam VS/I O: Last Documented: Result Date Time Pulse Ox 70 11/27 1400 B/P 131/74 11/27 1400 B/P Mean 97 11/27 1400 Pulse 68 11/27 1400 Resp 21 11/27 1400 FiO2 21 11/27 0721 O2 Delivery Room air 11/27 720 Temp 36.8 11/27 0400 O2 Flow Rate 2 11/26 1600 24 hour I O ending at 0700: 11/27 0700 11/26 1900 Intake Total 546.00 480 Output Total 735 1270 Balance -189.00 -790 Intake, IV 66.00 Intake, Oral 480 480 Number 1 Bowel Movements Output, Chest 135 170 Tube Drainage Output, Urine 600 1100 Patient 77.5 kg Weight Weight Standing scale Measurement Method PATIENT WEIGHT: Weight (lb): 170 Weight (oz): 0 Weight (kg): 77.111 General appearance: alert, awake, oriented Wound/Incision: Location: sternal incision Site condition: healing well Head/eyes: atraumatic, EOMI, normocephalic, normal conjunctiva/sclera, PERRLA ENT: normal pharynx, moist mucosal membranes Neck: supple, midline, trachea Cardiovascular: regular rate rhythm, TTP over anterior sternal area Respiratory: clear to auscultation, no distress Abdomen: soft, non-tender, no distention, active bowel sounds in all quadrant. Extremities: moves all, no edema Neuro/REWRITER: alert, oriented X 3, no motor deficits, no sensory deficits, CNII-XII grossly intact Results Findings/data: Laboratory Tests: 11/27 11/27 11/27 11/27 1142 0845 0549 0417 Chemistry POC Glucose (70 - 110 MG/DL) 135 H 119 H 121 H 200 H 11/27 11/27 11/26 11/26 0251 0207 2167 5542 Chemistry Sodium (134 - 147 mEq/L) 137 Potassium (3.4 - 5.0 mEq/L) 4.2 Chloride (100 - 108 mEq/L) 105 Carbon Dioxide (21 - 33 mEq/l) 24 Anion Gap (0 - 20) 12 BUN (7 - 25 mg/dL) 14 Creatinine (0.6 - 1.3 mg/dL) 0.9 Glomerular Filtr Rate (90 - 95) 76.9 L Glucose (77 - 141 mg/dL) 223 H POC Glucose (70 - 110 MG/DL) 260 H 372 H 445 H Calcium (8.0 - 10.5 mg/dL) 8.6 Magnesium (1.6 - 2.6 mg/dL) 2.23 Hematology WBC (4.5 - 11.0 x10 3/uL) 7.0 RBC (3.54 - 5.02 x10 6/uL) 3.53 L Hgb (11.0 - 15.0 g/dL) 8.7 L Hct (33.0 - 45.0 %) 30.1 L MCV (81.0 - 99.0 fL) 85.3 MCH (27.0 - 33.0 pg) 24.6 L MCHC (33.0 - 37.0 g/dL) 28.9 L RDW (11.5 - 14.5 %) 19.3 H Plt Count (150 - 400 x10 3/uL) 197 MPV (7.0 - 9.0 fL) 11.4 H Neut % (Auto) (56.0 - 77.0 %) 83.5 H Lymph % (Auto) (14.0 - 32.0 %) 9.6 L [place] % (Auto) (4.8 - 9.0 %) 6.1 Eos % (Auto) (0.3 - 3.7 %) 0.1 L Baso % (Auto) (0.0 - 2.0 %) 0.1 Neut # (Auto) (2.0 - 7.6 x10 3/uL) 5.85 Lymph # (Auto) (1.0 - 3.8 x10 3/uL) 0.67 L [place] # (Auto) (0.1 - 0.8 x10 3/uL) 0.43 Eos # (Auto) (0.0 - 0.2 x10 3/uL) 0.01 Baso # (Auto) (0.0 - 0.2 x10 3/uL) 0.01 Abs Immat Gran (auto) (0.00 - 0.03 x10 3/uL) 0.04 H Immature Gran % (0.0 - 2.0 %) 0.6 Nucleated RBC % (0 - 0 %) 0.0 Nucleated RBCs # (Man) (0.0 - 0.1 x10 3/uL) 0.00 Immature Plt Fraction (0.9 - 11.2 %) 5.3 11/26 1659 Chemistry POC Glucose (70 - 110 MG/DL) 338 H 277 H Diagnosis, Assessment Plan Free text A P: Patient is a 54-year-old female who presents with the following: Past medical history: DM, HTN, CAD Past surgical history: CABG 11/09/24, ALAA, PP, EVH, chest tube placement x2, pericardial window 11/26/24 Family history: Noncontributory Social history: denies drugs, alcohol, smoking Allergies: NKDA Acute postoperative pain -S/p CABG -S/P pericardial window -Tylenol 650 mg PO q4h PRN pain scale 1-3 -[place] 7.5/325 mg PO q4h PRN pain scale 4-10 (incr dose 11/27) Hereditary and idiopathic neuropathy -Gabapentin 1200 mg PO TID (incr dose 11/27) -Amitriptyline 25 mg PO qhs (11/27) Muscle spasms -Robaxin 500 mg PO q8h PRN (11/27) CAD, hypertension -MAR reviewed, continue present cardiac medications -We will monitor hypertension and tachycardia associated with uncontrolled pain. We will monitor for bradycardia and hypotension associated with oversedation with narcotics Constipation -We will monitor while utilizing opioid narcotic medications -Adequate fluid intake also discussed -Miralax 17 g PO daily -Colace 100 mg PO BID -Dulcolax 10 mg PO daily PRN -Colace 100 mg PO BID PRN Disposition: DC date: RX sent for: Pharmacy: [facility] #[id number] ([id number] [address] [address] Patient has failed conservative medical therapy. Patient will require monitoring while utilize narcotic medications for any adverse effects, and will adjust as needed. Patient will require monitoring drug therapy for toxic effects. Plan of care discussed with patient and nurse. All diagnostics of last 24 hours been reviewed. Have reviewed other specialties notes. Risks versus benefits of opioid medications were reviewed to include, but not limited to respiratory depression, accidental overdose, altered mental status, sudden , constipation which could result in bowel obstruction, seizures, withdrawal, dependency addiction, risk for falls. Case discussed with Dr Keith whom agrees. Thank you for the consultation. [facility] report reviewed: Yunier Pratt 1970 Summary Total Prescriptions 7 Total Private Pay 0 Total Prescribers 5 Total Pharmacies 2 Narcotics (excluding Buprenorphine) Current MME/day 0.00 30 Day Avg MME/day 6.00 Current Qty 0 11/21/2024 11/21/2024 1 ACETAMINOPHEN-COD #4 TABLET 20.00 5 Ar Qur [id number] Heb ( 4384) 0 36.00 MME Comm Ins [place] 2024 2024 1 HYDROCODONE-ACETAMIN 5-325 MG 20.00 3 Pa o [id number] Wal (1910) 0 33.33 MME Comm Ins [place] 2024 2024 1 TRAMADOL-ACETAMINOPHN 37.5-325 20.00 3 Pa Tho [id number] b (9315) 0 50.00 MME Comm Ins [place] [facility] (1910) [address] [id number] #[id number] ([id number]) [address] [address] at 7589 RPT #:[id number] END OF REPORT [facility] 2024-11-27 11:55:00 [id number] [address] PATIENT NAME: YUNIER PRATT ADMIT DATE: 11/26/24 ACCOUNT NO: [id number] ROOM NO: [facility] AGE: 54 REPORT TYPE: eECHOCARDIOGRAM REPORT SEX: F ADMITTING PHYSICIAN:Antoinette Ross MD ATTENDING PHYSICIAN:Antoinette Ross MD *[address] [address] Transthoracic Echocardiogram Patient: Yunier Pratt Study Date: 11/25/2024 BP: 118 / 71 URN: [id number] Location: : 1970 Age: 54 Gender: F Height: 66 in / 167.6 cm Weight: 154 lb / 69.9 kg BMI/BSA: 24.9 kg/m 2 / 1.81 m 2 *Ordering Physician: * Vanessa Sams Aprn *Interpreting Physician: * Sharon Lindquist MD *Stretcher And Drier: * Tessa Sue Indications: SOB. Study data: Transthoracic echocardiogram. Procedure: A transthoracic echocardiogram was performed. Image quality was adequate. Complete 2D, complete spectral Doppler, and color Doppler. Location: Bedside. Patient status: Inpatient. Patient room number: C130. Study status: Routine. Heart rate: 64 bpm. Findings Left ventricle: The cavity size is normal. Wall thickness is increased. Systolic function is normal. The estimated ejection fraction is 55-60%. Wall motion is normal; there are no regional wall motion abnormalities. Left ventricular diastolic function parameters are normal. PATIENT NAME: YUNIER PRATT Right ventricle: The cavity size is normal. Systolic function is normal. The RV pressure during systole is 51 mm Hg. Left atrium: The atrium is dilated. Right atrium: The atrium is normal in size. Aorta: Aortic root: The root is normal-sized. Aortic valve: The valve is trileaflet. There is thickening, consistent with sclerosis. There is no evidence of stenosis. There is no regurgitation. Mitral valve: The annulus is mildly to moderately calcified and mildly to moderately thickened. There is no evidence of stenosis. There is mild regurgitation. Tricuspid valve: The valve is structurally normal. There is mild regurgitation. Pulmonic valve: The valve is structurally normal. There is trivial regurgitation. Pericardium: A large pericardial effusion is identified along the right ventricular free wall. There is a large left pleural effusion. Pulmonary arteries: The main pulmonary artery is normal-sized. Systemic veins: Inferior vena cava: The IVC is dilated. Measurements Left ventricle Value Ref 11/20/2024 JUANI, LAX 5.3 cm 3.8 - 5.2 5.2 ESD, LAX 3.9 cm 2.2 - 3.5 3.6 FS, LAX 27 % 27 - 45 31 IVS, ED 1.0 cm 0.6 - 0.9 1.0 PW, ED 1.0 cm 0.6 - 0.9 1.0 IVS/PW, ED 1.04 --------- 0.95 EF 52 % 54 - 74 58 IVRT 57 ms --------- E', lat michelle, TDI 10.6 cm/sec >=10.0 E/e', lat michelle, TDI 14 <=13 E', med michelle, TDI 6.8 cm/sec >=7.0 E/e', med michelle, TDI 22 --------- E', avg, TDI 8.7 cm/sec --------- E/e', avg, TDI 17 <=14 LVOT Value Ref 11/20/2024 Diam, S 2.00 cm --------- 1.91 Area 3.1 cm 2 --------- 2.9 Peak mari, S 1.59 m/sec --------- Mean mari, S 1.15 m/sec --------- VTI, S 32.5 cm --------- Peak grad, S 10 mm Hg --------- Mean grad, S 6 mm Hg --------- SV 102 ml --------- SV/bsa 56 ml/m 2 --------- Right ventricle Value Ref 11/20/2024 JUANI, LAX 4.0 cm --------- 3.0 PATIENT NAME: YUNIER PRATT TAPSE, MM 1.4 cm >=1.7 Pressure, S 51 mm Hg --------- Left atrium Value Ref 11/20/2024 Vol/bsa, ES, 1-p A4C 39 ml/m 2 11 - 40 53 Vol/bsa, ES, A/L 41 ml/m 2 16 - 34 56 AP dim, ES MM 4.6 cm 2.7 - 3.8 5.3 LA/Ao root ratio, MM 1.59 --------- 1.75 Right atrium Value Ref 11/20/2024 Area, ES 18 cm 2 10 - 18 SI dim, ES, A4C 5.6 cm 3.4 - 5.3 Vol, ES, A/L 52 ml --------- Vol, ES, 1-p A4C 50 ml --------- Vol/bsa, ES, 1-p A4C 28 ml/m 2 9 - 33 Aortic valve Value Ref 11/20/2024 Leaflet sep, MM 1.91 cm --------- 2.02 Peak v, S 1.9 m/sec --------- Mean v, S 1.17 m/sec --------- VTI, S 29.7 cm --------- Mean grad, S 6 mm Hg --------- Peak grad, S 15.0 mm Hg --------- LVOT/AV, VTI ratio 1.09 --------- BELEN, VTI 3.43 cm 2 --------- LVOT/AV, Vpeak ratio 0.82 --------- BELEN, Vmax 2.57 cm 2 --------- Mitral valve Value Ref 11/20/2024 Mean v, D 0.79 m/sec --------- Peak E 1.52 m/sec --------- Peak A 0.63 m/sec --------- VTI leaflet coapt 46.4 cm --------- MiV/LVOT VTI 1.4 --------- Decel time 260 ms --------- PHT 75 ms --------- Mean grad, D 3 mm Hg --------- Peak grad, D 15.0 mm Hg --------- Peak E/A ratio 2.42 --------- MVA, PHT 2.9 cm 2 --------- Pulmonic valve Value Ref 11/20/2024 AR peak v 1.09 m/sec --------- AR peak grad 5 mm Hg --------- Tricuspid valve Value Ref 11/20/2024 TR peak v 3 m/sec <=2.8 Peak RV-RA grad, S 36 mm Hg --------- Aortic root Value Ref 11/20/2024 Root diam, ED MM 2.9 cm --------- 3.0 Pulmonary artery Value Ref 11/20/2024 Pressure, S 39.8 mm Hg --------- PATIENT NAME: YUNIER PRATT Systemic veins Value Ref 11/20/2024 Estimated CVP 15 mm Hg --------- Inferior vena cava Value Ref 11/20/2024 Diam 3.0 cm <=2.1 Pulmonary veins Value Ref 11/20/2024 A rev duration 108 ms --------- Conclusions Summary: 1. Left ventricle: The cavity size is normal. Wall thickness is increased. Systolic function is normal. The estimated ejection fraction is 55-60%. Wall motion is normal; there are no regional wall motion abnormalities. Left ventricular diastolic function parameters are normal. 2. Right ventricle: The RV pressure during systole is 51 mm Hg. 3. Left atrium: The atrium is dilated. 4. Aortic valve: There is thickening, consistent with sclerosis. 5. Mitral valve: The annulus is mildly to moderately calcified and mildly to moderately thickened. 6. Pericardium, extracardiac: A large pericardial effusion is identified along the right ventricular free wall. There is a large left pleural effusion. Electronically signed by Sharon Lindquist MD 11/27/2024 11:55 at 1155 PATIENT NAME: YUNIER PRATT [facility] 2024-11-27 10:11:00 [facility] Cardiothoracic Surgery Prog REPORT#:[id number] REPORT STATUS: Signed REPORT INITIALIZATION DATE:11/27/24 TIME: 1011 PATIENT: YUNIER PRATT UNIT #: [id number] [facility] AGE: 54 SEX: F ATTEND: Antoinette Ross MD ADM AUTHOR: Elise Harvey Physic REPT SERVICE DT/TIME: 11/27/24 1011 * ALL edits or amendments must be made on the electronic/computer document * General Post-op: post surgery rounds Subjective Chief complaint: reports feeling better after BM Review of Systems Constitutional: Denies: chills, fatigue, generalized weakness. Skin: Denies: abrasion, contusion, ecchymosis. Allergy/Immun: Denies: allergic reaction, hives, itching. Eyes: Denies: redness, visual loss/blurred, diplopia. Cardiovascular: Denies: chest pain, palpitations. GI: Denies: abdominal pain, nausea, vomiting. : Denies: dysuria, flank pain. Heme: Denies: adenopathy, bleeding. Neuro: Denies: dizziness, seizure, syncope. All systems rev neg: except as marked Objective General VS/I O Last Documented: Result Date Time Pulse Ox 94 11/27 720 FiO2 21 11/27 720 O2 Delivery Room air 11/27 720 B/P 142/71 11/27 620 B/P Mean 102 11/27 620 Pulse 60 11/27 0621 Resp 19 11/27 620 Temp 98.3 11/27 0400 O2 Flow Rate 2 11/26 1600 24 hour I O ending at 0700: 11/27 0700 11/26 1900 Intake Total 546.00 480 Output Total 735 1270 Balance -189.00 -790 Intake, IV 66.00 Intake, Oral 480 480 Number 1 Bowel Movements Output, Chest 135 170 Tube Drainage Output, Urine 600 1100 Patient 77.5 kg Weight Weight Standing scale Measurement Method PATIENT WEIGHT: Weight (lb): 170 Weight (oz): 13.73 Weight (kg): 77.500 Physical Exam General appearance: alert, awake, oriented Wound/incision: Location: sternum Site condition: dressing clean dry, dressing intact HEENT: mucosal membranes moist Cardiovascular: normal heart sounds Respiratory: aerating well, symmetric expansion Abdomen: soft, non-tender Genitourinary: no bladder distention, no flank pain Extremities: dry, moves all Neuro/REWRITER: alert, oriented X 3 Skin: dry, intact Psychiatry: normal affect, normal mood Quality: Trauma Gen Surg Current Medications Current medication review: I attest that the foregoing medication list in the medical record is true, accurate, and complete to the best of my knowledge. Diagnosis, Assessment Plan Hospital course to date: This is a 54-year-old female with a past medical history of hypertension, diabetes on insulin, and neuropathy who had a recent NSTEMI and had severe MVD. Patient had successful CABG x 5 (ASH to LAD, saphenous vein to diagonal, saphenous vein to first marginal, saphenous vein to second marginal, saphenous vein to PDA), ALAA on 11/09/24. Patient had bilateral pleural effusions drained prior to discharge on 11/21/24 with pigtail chest tube catheters, later in which were removed. Patient denies any alcohol or drug use. He does report half pack a day smoking for the past 40 years. 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 Patient presents to OSH with shortness of breath and reports acute onset of symptoms that began 2-3 days ago. She admits to associated cough productive sputum, chest pain and global swelling. Her CXR revealed a pleural effusion. Her notable lab findings were as follows: H/H 8.5/26.2, AST 105, ALT, 95, alk phos 124, troponin 530.5 and BNP 4063. She denies fever, abdominal pain, nausea /vomiting, melena, hematuria, hematochezia or calf pain. Assessment/plan: 1. Shortness of breath 2. Pleural effusion 3. Status post CABG 4. Hypertension 5. Neuropathy 6. Type 2 diabetes Admit to observation unit Monitor on telemetry for arrhythmia Labs reviewed, replace electrolytes as needed Diurese patient with IV Lasix Echocardiogram Encourage incentive spirometer use PT/OT Resume home medications and adjust as needed SCDs for DVT prophylaxis Cardiology consulted Further recommendations based on clinical course Patient seen and examined. Discussed plan of care with patient, all patient's questions have been answered MDM done by Dr. Little 11/25/24 Patient alert, awake, oriented, reports feeling better Labs reviewed, replace electrolytes as needed Wean off oxygen, currently on 2 L nasal cannula, I-S use encouraged Normal sinus rhythm, monitoring blood pressure closely Echocardiogram pending Strict I's and O's and daily weights, weight trending down, diurese with Lasix, give Diamox today Out of bed to chair for all meals, ambulate, PT OT following Patient seen and examined. Discussed plan of care with patient, all questions answered. MDM done by Dr. Little 11/27/24 Patient alert, awake, oriented, reports pain. Pain management following. Labs reviewed, replace electrolytes as needed Wean off oxygen, on Room Air, I-S use encouraged Normal sinus rhythm, monitoring blood pressure closely Minimal drianage on Chest tubes. CT Dc'd Strict I's and O's and daily weights, weight trending down, Out of bed to chair for all meals, ambulate, PT OT following Patient seen and examined. Consult Pain management. Consultants: cardiology at 1433 at 1419 RPT #:[id number] END OF REPORT [facility] 2024-11-27 09:01:00 [facility] ([facility]) Cardiology Progress Note REPORT#:[id number] REPORT STATUS: Signed REPORT INITIALIZATION DATE:11/27/24 TIME: 900 PATIENT: YUNIER PRATT UNIT #: [id number] ROOM/BED: [place] [address] : 74 AGE: 54 SEX: F ATTEND: Antoinette Ross MD ADM AUTHOR: Fay Fernandez AGACNP REPT SERVICE DT/TIME: 11/27/24 0901 * ALL edits or amendments must be made on the electronic/computer document * Subjective Patient reports: No: complaints. Objective General VS/I O: 24 hour I O ending at 0700: 11/27 0700 11/26 1900 Intake Total 546.00 480 Output Total 735 1270 Balance -189.00 -790 Intake, IV 66.00 Intake, Oral 480 480 Number 1 Bowel Movements Output, Chest 135 170 Tube Drainage Output, Urine 600 1100 Patient 77.5 kg Weight Weight Standing scale Measurement Method Vital Signs: Date Time Temp Pulse Resp B/P B/P Pulse O2 O2 Flow FiO2 Mean Ox Delivery Rate 11/27 720 94 Room air 21 11/27 620 60 19 142/71 102 94 04/08 0518 56 13 130/71 94 97 04/08 0430 56 13 99 04/08 0400 36.8 04/08 0329 57 28 151/72 104 100 04/08 0306 59 19 159/127 138 100 04/08 0300 60 35 114/114 114 04/08 0230 125/69 92 04/08 0230 52 13 123/56 80 97 04/08 0200 134/70 97 04/08 0200 53 13 129/58 83 97 04/08 0130 133/70 96 04/08 0130 52 13 127/58 82 98 04/08 0100 120/69 89 04/08 0100 52 13 119/56 78 97 04/08 0030 124/63 87 04/08 0030 51 13 114/54 75 98 04/08 0000 36.7 04/08 0000 121/63 85 04/08 0000 51 12 110/55 75 97 04/07 2330 116/61 82 04/07 2330 52 13 107/52 72 97 04/07 2300 112/60 81 04/07 2300 53 14 106/52 71 98 04/07 2230 106/58 76 04/07 2230 54 14 96/48 65 97 04/07 2200 108/56 76 04/07 2200 57 14 91/49 64 96 04/07 2130 122/65 88 04/07 2130 59 20 84/75 80 95 04/07 2100 133/70 97 04/07 2100 62 22 94/72 83 96 04/07 2100 97 Room air 04/07 2030 137/78 100 04/07 2030 70 29 98/81 90 100 04/07 2000 36.8 04/07 2000 136/70 97 04/07 2000 66 23 95/80 89 97 04/07 1930 67 30 124/58 82 96 04/07 1900 124/64 89 04/07 1900 68 19 141/134 137 94 04/07 1800 77 28 04/07 1745 74 123/49 72 91 04/07 1700 68 17 115/45 66 04/07 1600 Nasal 2 cannula 04/07 1600 63 29 166/66 99 88 04/07 1533 100 Nasal 2 cannula 04/07 1530 Nasal 2 cannula 04/07 1530 59 156/61 90 100 04/07 1518 59 20 125/68 100 04/07 1516 Nasal 2 cannula 04/07 1515 59 14 131/68 98 Nasal 2 cannula 04/07 1510 61 11 132/64 90 Nasal 2 cannula 04/07 1505 62 18 136/60 95 04/07 1500 61 14 116/64 91 04/07 1455 61 14 118/65 95 04/07 1450 61 17 112/57 99 04/07 1445 61 18 111/56 99 Room air 04/07 1440 60 14 119/60 98 04/07 1435 61 13 124/63 95 04/07 1430 61 14 121/60 97 04/07 1425 61 12 125/68 99 04/07 1420 60 14 118/68 100 04/07 1415 60 19 119/64 98 04/07 1410 61 20 119/67 99 04/07 1409 Simple 6 mask 04/07 1405 61 22 119/62 98 04/07 1400 61 11 116/61 97 Room air 04/07 1355 59 19 111/56 99 04/07 1350 58 20 131/65 95 Simple 6 mask 04/07 1347 60 16 122/58 96 Simple 6 mask 04/07 1115 62 20 155/51 76 92 04/07 1100 62 23 105/71 90 92 04/07 1030 62 19 148/54 79 96 04/07 1024 63 22 152/52 78 94 PATIENT WEIGHT: Weight (lb): 170 Weight (oz): 13.73 Weight (kg): 77.500 Medications: Active Meds + DC'd Last 24 Hrs Dextrose/Water (DEXTROSE 10% IN WATER) 125 ML ASDIR PRN IV (CKD) Dextrose/Water (DEXTROSE 10% IN WATER) 250 ML ASDIR PRN IV (CKD) Glucagon (GLUCAGON) 1 MG ASDIR PRN IM Insulin Human Regular (MYXREDLIN 100 UNITS/NS 100ML) 100 ML ASDIR IV ( CKD) Insulin Human Regular (MYXREDLIN 100 UNITS/NS 100ML) 100 ML ASDIR IV (DC ) Docusate Sodium (COLACE) 100 MG BID PO Ipratropium Basom (ATROVENT) 500 MCG RTQ6H NEB Acetaminophen (OFIRMEV 10MG/ML) 100 ML Q6H IV (DC) Morphine Sulfate (morphine SULFATE) 2 MG ONCE ONE IV (DC) Potassium Chloride (POTASSIUM CHLORIDE 20MEQ TAB.ER) 20 MEQ ONCE ONE PO (DC) Methocarbamol (ROBAXIN) 1,000 MG Q8HR IV (DC) Hydromorphone HCl (DILAUDID) 0 .STK-MED ONE .ROUTE (DC) Fentanyl Citrate (SUBLIMAZE) 0 .STK-MED ONE .ROUTE (DC) Diphenhydramine HCl (BENADRYL) 12.5 MG PACU ONCE PRN IV (DC) Fentanyl Citrate (SUBLIMAZE) 100 MCG PACU Q10MIN PRN PRN IV (DC) Fentanyl Citrate (SUBLIMAZE) 50 MCG PACU Q10MIN PRN PRN IV (DC) Hydralazine HCl (APRESOLINE) 5 MG PACU Q10MIN PRN PRN IV (DC) Hydrocodone Bitart/Acetaminophen (NORCO 5/325) 1 TAB PACU ONCE PO (DC) Hydromorphone HCl (DILAUDID) 1 MG PACU Q10MIN PRN PRN IV (DC) Hydromorphone HCl (DILAUDID) 0.5 MG PACU Q5MIN PRN PRN IV (DC) Insulin Human Lispro (Admelog) 0 PACU ONCE PRN SUBQ (DC) Labetalol HCl (labetalol 100 mg/20 mL Inj) 5 MG PACU Q10MIN PRN PRN IV ( DC) Meperidine HCl (DEMEROL 50MG/ML) 12.5 MG PACU ONCE PRN IV (DC) Morphine Sulfate (morphine SULFATE) 2 MG PACU Q10MIN PRN PRN IV (DC) Ondansetron HCl (ZOFRAN) 4 MG PACU ONCE PRN IV (DC) Promethazine HCl (PHENERGAN) 25 MG PACU ONCE PRN PO (DC) Ropivacaine (NAROPIN 0.5% 150 MG/30mL) 150 MG ASDIR PRN LOCAL (DC) Tramadol HCl (ULTRAM) 50 MG PACU ONCE PO (DC) Sugammadex Sodium (BRIDION) 0 .STK-MED ONE IV (DC) Cefazolin Sodium (KEFZOL OR ANCEF) 0 .STK-MED ONE .ROUTE (DC) Lidocaine HCl (Lidocaine PF1% 20 mg/2 mL Inj) 2 ML .STK-MED ONE LOCAL ( DC) Furosemide (LASIX 40 mg/4 mL INJECTION) 40 MG BID 9A 5P IV Mupirocin (BACTROBAN 2% 22 GM OINTMENT) 1 APPLIC BID NASAL Cefazolin Sodium (ceFAZolin 2 GM Inj) 2 GM PREOP ONCALL IV (DC) Sodium Chloride (SODIUM CHLORIDE) 20 ML Sodium Chloride (SODIUM CHLORIDE 0.9%) 100 ML ASDIR PRN IV Sodium Chloride (SODIUM CHLORIDE 0.9%) 100 ML ASDIR PRN IV Insulin Glargine (Semglee) 10 UNIT DAILY SUBQ (DC) Sterile Water (WATER FOR INJECTION) 5 ML ASDIR PRN IV Amiodarone HCl (CORDARONE) 200 MG DAILY PO Aspirin (ASPIRIN) 81 MG DAILY PO Clopidogrel Bisulfate (Plavix) 75 MG DAILY PO Cyanocobalamin (Vitamin B-12 500 mcg tab) 500 MCG DAILY PO Duloxetine HCl (CYMBALTA) 20 MG DAILY PO Ferrous Sulfate (FERROUS SULFATE) 325 MG DAILY PO Pantoprazole (PROTONIX) 40 MG DAILY@0600 PO Quetiapine Fumarate (SeroqueL) 200 MG BEDTIME PO Atorvastatin Calcium (LIPITOR) 40 MG 2100 PO Gabapentin (NEURONTIN) 600 MG TID PO Insulin Human Lispro (Admelog) 0 AC HS SUBQ (DC) Metoprolol Tartrate (LOPRESSOR) 12.5 MG Q12HR PO Morphine Sulfate (morphine SULFATE) 2 MG Q6H PRN PRN IV (DC) Dextrose/Water (DEXTROSE 10% IN WATER) 125 ML ASDIR PRN IV (DC) Dextrose/Water (DEXTROSE 10% IN WATER) 250 ML ASDIR PRN IV (DC) Glucagon (GLUCAGON) 1 MG ASDIR PRN IM (DC) Hydrocodone Bitart/Acetaminophen (NORCO 5/325) 1 TAB Q6H PRN PRN PO Magnesium Sulfate (MAGNESIUM SULFATE 2GM/SWFI 50ML) 50 ML ASDIR PRN IV Potassium Chloride (POTASSIUM CHLORIDE 20MEQ TAB.ER) 20 MEQ ASDIR PRN PO Potassium Chloride (POTASSIUM CHLORIDE 20MEQ TAB.ER) 40 MEQ ASDIR PRN PO Acetaminophen (TYLENOL) 650 MG Q4H PRN PRN PO Acetaminophen (TYLENOL) 650 MG Q4H PRN PRN RECTAL Al Hydrox/Mg Hydrox/Simethicone (MYLANTA) 30 ML Q4H PRN PRN PO Docusate Sodium (COLACE) 100 MG BID PRN PRN PO Ondansetron HCl (ZOFRAN) 4 MG Q4H PRN PRN IV Physical Exam General appearance: alert, awake Neck: non-tender Cardiovascular: CV assessment: regular rate and rhythm Respiratory: decreased breath sounds, no distress Abdomen: soft, non-tender Genitourinary: no urinary catheter Lower extremity: LE assessment: no edema Musculoskeletal: normal inspection Neuro/REWRITER: alert, oriented X 3, normal speech Skin: dry, intact, normal color Psychiatry: normal affect, normal mood Results Findings/Data: Laboratory Tests 11/26 1254 Blood Gas O2 Saturation (90 - 100 %) 100.0 ABG pH (7.35 - 7.45) 7.434 ABG pCO2 (35.0 - 45 mmHg) 36.9 ABG pO2 (80 - 100.0 mmHg) 453.3 *H ABG HCO3 (22.0 - 26.0 MMOL/L) 24.7 ABG Total CO2 (22 - 29) 25.8 ABG Base Excess (0 - +/ MMOL/L) 0.5 ABG Hematocrit (33 - 45 %) 24 L ABG Hemoglobin (11.0 - 15.0 G/DL) 8.0 L Sodium (134 - 147 mmol/L) 138 Potassium (3.4 - 5.0 mmol/L) 3.4 Chloride (100 - 108 mmol/L) 107 Ionized Calcium (1.12 - 1.32 MMOL/L) 1.12 Lactic Acid (0.9 - 1.7 mmol/l) < 0.3 L Laboratory Tests 11/27 11/27 11/27 11/27 11/27 0845 0549 0417 0251 0207 Chemistry Sodium (134 - 147 mEq/L) 137 Potassium (3.4 - 5.0 mEq/L) 4.2 Chloride (100 - 108 mEq/L) 105 Carbon Dioxide (21 - 33 mEq/l) 24 Anion Gap (0 - 20) 12 BUN (7 - 25 mg/dL) 14 Creatinine (0.6 - 1.3 mg/dL) 0.9 Glomerular Filtr Rate (90 - 95) 76.9 L Glucose (77 - 141 mg/dL) 223 H POC Glucose (70 - 110 MG/DL) 119 H 121 H 200 H 260 H Calcium (8.0 - 10.5 mg/dL) 8.6 Magnesium (1.6 - 2.6 mg/dL) 2.23 11/26 11/26 11/26 11/26 11/26 2359 2115 2003 1659 1434 Chemistry Sodium (134 - 147 mEq/L) 138 Potassium (3.4 - 5.0 mEq/L) 3.7 Chloride (100 - 108 mEq/L) 104 Carbon Dioxide (21 - 33 mEq/l) 27 Anion Gap (0 - 20) 11 BUN (7 - 25 mg/dL) 14 Creatinine (0.6 - 1.3 mg/dL) 0.7 Glomerular Filtr Rate (90 - 95) 104.0 H Glucose (77 - 141 mg/dL) 249 H POC Glucose (70 - 110 MG/DL) 372 H 445 H 338 H 277 H Calcium (8.0 - 10.5 mg/dL) 7.9 L 11/26 11/26 1357 1254 Chemistry POC Creatinine (0.6 - 1.3 mg/dL) 0.6 POC Glucose (70 - 110 MG/DL) 154 H POC Glucose (mg/dL) (70 - 110 MG/DL) 169 H Laboratory Tests 11/26 1306 Coagulation Activated Coag Time (74 - 137 SEC) 152 H Laboratory Tests 11/27 11/26 0251 1434 Hematology WBC (4.5 - 11.0 x10 3/uL) 7.0 RBC (3.54 - 5.02 x10 6/uL) 3.53 L Hgb (11.0 - 15.0 g/dL) 8.7 L 7.6 L Hct (33.0 - 45.0 %) 30.1 L 26.3 L MCV (81.0 - 99.0 fL) 85.3 MCH (27.0 - 33.0 pg) 24.6 L MCHC (33.0 - 37.0 g/dL) 28.9 L RDW (11.5 - 14.5 %) 19.3 H Plt Count (150 - 400 x10 3/uL) 197 MPV (7.0 - 9.0 fL) 11.4 H Neut % (Auto) (56.0 - 77.0 %) 83.5 H Lymph % (Auto) (14.0 - 32.0 %) 9.6 L [place] % (Auto) (4.8 - 9.0 %) 6.1 Eos % (Auto) (0.3 - 3.7 %) 0.1 L Baso % (Auto) (0.0 - 2.0 %) 0.1 Neut # (Auto) (2.0 - 7.6 x10 3/uL) 5.85 Lymph # (Auto) (1.0 - 3.8 x10 3/uL) 0.67 L [place] # (Auto) (0.1 - 0.8 x10 3/uL) 0.43 Eos # (Auto) (0.0 - 0.2 x10 3/uL) 0.01 Baso # (Auto) (0.0 - 0.2 x10 3/uL) 0.01 Abs Immat Gran (auto) (0.00 - 0.03 x10 3/uL) 0.04 H Immature Gran % (0.0 - 2.0 %) 0.6 Nucleated RBC % (0 - 0 %) 0.0 Nucleated RBCs # (Man) (0.0 - 0.1 x10 3/uL) 0.00 Immature Plt Fraction (0.9 - 11.2 %) 5.3 Laboratory Tests 11/27 0251 Chemistry Magnesium (1.6 - 2.6 mg/dL) 2.23 Results: labs reviewed, vital signs reviewed, rhythm personally rev'd Diagnosis, Assessment Plan Plan discussed with: patient, collaborating MD, nurse Free Text DxA P Notes Free Text DxA P Notes: 54 YO female with MH of CAD, PR, recent CABG x5V, HTN, DM, diastolic CHF, longtime heavy smoker. She underwent CABG x5 on November 09, 2024 . Post CABG she developed post-op anemia (s/p PRBC transfusion), thrombocytopenia, as well pleural effusion (s/p bilateral thoracentesis). She was discharged on 2024. Unfortunately she presented back to [facility] on 11/24/2024 with complaint of shortness of breath, cough, generalized edema. Chest imaging at OSH revealed pleural effusion. She was transferred to [facility] for further management. Her echocardiogram revealed large pericardial effusion. 1. [id number] Diastolic CHF exacerbation * continue Lasix 40 mg IV BID * strict I/O * negative fluid balance 2. Pericardial effusion * 11/26/2024: underwent pericardial window 3. Pleural effusion * 11/26/2024: underwent chest tube placement * continue IV Lasix 40 mg IV BID 4. Coronary artery disease s/p CABG x5 (11/09/2024) * S/p CABG (ASH-LAD, SVG-OM1, SVG-OM2, SVG-Diag, SVG-PDA) * on Plavix ASA, BB, statin 5. Hypertension * BP stable * continue metoprolol 12.5 mg BID 6. Diabetes mellitus * manage per CTS 7. Anemia * hgb 8.7 * on iron supplement Medical decision making by Dr. Lindquist. at 2308 RPT #:[id number] END OF REPORT [facility] 2024-11-26 19:00:00 [facility] ([facility]) Brief Op Note REPORT#:[id number] REPORT STATUS: Signed REPORT INITIALIZATION DATE:11/26/24 TIME: 1899 PATIENT: YUNIER PRATT UNIT #: [id number] ROOM/BED: [place] [id number] : 72 AGE: 54 SEX: F ATTEND: Antoinette Ross MD ADM AUTHOR: Antoinette Ross MD REPT SERVICE DT/TIME: 11/26/241899 * ALL edits or amendments must be made on the electronic/computer document * Op/Inv Proc Note - Brief Pre-procedure diagnosis: pericardial effusion pleural effusion Post-procedure diagnosis: same as pre procedure dx Procedures performed: subxiphoid pericardial window drainage of pericardial effusion drainage of pleural effusion Primary Surgeon: Vandana [employer]): Christina Galaviz Findings: 100 cc pericardial fluid removed 700 cc pleural effusion removed Complications: none Estimated blood loss in ml's: 10 cc Specimens removed/altered: none at 0728 RPT #:[id number] END OF REPORT [facility] 2024-11-26 16:56:00 [facility] ([facility]) Critical Care Consult Note REPORT#:[id number] REPORT STATUS: Signed REPORT INITIALIZATION DATE:11/26/24 TIME: 1655 PATIENT: YUNIER PRATT UNIT #: [id number] ROOM/BED: [place] [id number] : 72 AGE: 54 SEX: F ATTEND: Antoinette Ross MD ADM AUTHOR: Anshul Wharton MD REPT SERVICE DT/TIME: 11/26/24 4267 * ALL edits or amendments must be made on the electronic/computer document * History of Present Illness HPI Requesting clinician: Dr Ross Reason for consult: Status post pericardial window Chief complaint: Shortness of breath HPI: 54-year-old female past medical history of hypertension, diabetes on insulin, neuropathy, NSTEMI with a recent CABG on 11/09/2024 was discharged home. Patient presented to outside hospital shortness of breath. Echo was done which showed pericardial effusion and bilateral pleural effusions. Patient was transferred here for pericardial window creation. Patient has been receiving IV diuresis. Patient underwent pericardial drainage today and was brought to CVICU extubated on room air. Complaining of pain in the left shoulder. Patient has a mediastinal chest tube and a left pleural chest tube. History - Adult longitudinal Past medical history: Reports: COPD, Coronary artery disease, Diabetes mellitus, Hypertension, Dyslipidemia. Additional medical history: Neuropathy Past surgical history: Reports: CABG. 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) Drug use: Denies recreational drugs Smoking status for patients 13 years old or older: Former Smoker (quit 10/2024) Date last smoked: 11/13/24 Packs per day: 1 Years smoked: 37 Pack years: 37 Allergies: Coded Allergies: heparin (BLOOD CLOT 11/24/24) HIT (+) Objective Physical Exam VS/I O: Last Documented: Result Date Time Pulse Ox 100 11/26 1533 O2 Delivery Nasal cannula 11/26 1533 O2 Flow Rate 2 11/26 1533 B/P 125/68 11/26 1518 Pulse 59 11/26 1518 Resp 20 11/26 1518 B/P Mean 76 11/26 1115 Temp 36.8 11/26 0734 24 hour I O ending at 0700: 11/26 0700 11/25 1900 Intake Total 360 Output Total 200 1400 Balance -200 -1040 Intake, Oral 360 Output, Urine 200 1400 Patient 69.853 kg Weight Patient Weight and BMI Weight (kg): 69.853 BMI: 24.9 Medications: Active Meds + DC'd Last 24 Hrs Docusate Sodium (COLACE) 100 MG BID PO Potassium Chloride (POTASSIUM CHLORIDE 20MEQ TAB.ER) 20 MEQ ONCE ONE PO Methocarbamol (ROBAXIN) 1,000 MG Q8HR IV Hydromorphone HCl (DILAUDID) 0 .STK-MED ONE .ROUTE (DC) Fentanyl Citrate (SUBLIMAZE) 0 .STK-MED ONE .ROUTE (DC) Diphenhydramine HCl (BENADRYL) 12.5 MG PACU ONCE PRN IV (DC) Fentanyl Citrate (SUBLIMAZE) 100 MCG PACU Q10MIN PRN PRN IV (DC) Fentanyl Citrate (SUBLIMAZE) 50 MCG PACU Q10MIN PRN PRN IV (DC) Hydralazine HCl (APRESOLINE) 5 MG PACU Q10MIN PRN PRN IV (DC) Hydrocodone Bitart/Acetaminophen (NORCO 5/325) 1 TAB PACU ONCE PO (DC) Hydromorphone HCl (DILAUDID) 1 MG PACU Q10MIN PRN PRN IV (DC) Hydromorphone HCl (DILAUDID) 0.5 MG PACU Q5MIN PRN PRN IV (DC) Insulin Human Lispro (Admelog) 0 PACU ONCE PRN SUBQ (DC) Labetalol HCl (labetalol 100 mg/20 mL Inj) 5 MG PACU Q10MIN PRN PRN IV ( DC) Meperidine HCl (DEMEROL 50MG/ML) 12.5 MG PACU ONCE PRN IV (DC) Morphine Sulfate (morphine SULFATE) 2 MG PACU Q10MIN PRN PRN IV (DC) Ondansetron HCl (ZOFRAN) 4 MG PACU ONCE PRN IV (DC) Promethazine HCl (PHENERGAN) 25 MG PACU ONCE PRN PO (DC) Ropivacaine (NAROPIN 0.5% 150 MG/30mL) 150 MG ASDIR PRN LOCAL (DC) Tramadol HCl (ULTRAM) 50 MG PACU ONCE PO (DC) Sugammadex Sodium (BRIDION) 0 .STK-MED ONE IV (DC) Cefazolin Sodium (KEFZOL OR ANCEF) 0 .STK-MED ONE .ROUTE (DC) Lidocaine HCl (Lidocaine PF1% 20 mg/2 mL Inj) 2 ML .STK-MED ONE LOCAL ( DC) Furosemide (LASIX 40 mg/4 mL INJECTION) 40 MG BID 9A 5P IV Mupirocin (BACTROBAN 2% 22 GM OINTMENT) 1 APPLIC BID NASAL Dexamethasone Sodium Phosphate (DECADRON) 0 .STK-MED ONE .ROUTE (DC) Fentanyl Citrate (SUBLIMAZE) 0 .STK-MED ONE .ROUTE (DC) Lidocaine HCl (XYLOCAINE) 0 .STK-MED ONE .ROUTE (DC) Midazolam HCl (VERSED) 0 .STK-MED ONE .ROUTE (DC) Norepinephrine Bitartrate (LEVOPHED BITARTATE) 0 .STK-MED ONE IV (DC) Ondansetron HCl (ZOFRAN) 0 .STK-MED ONE .ROUTE (DC) Propofol (DIPRIVAN 200MG/20ML INJECTION) 20 ML .STK-MED ONE IV (DC) Rocuronium Basom (ZEMURON) 0 .STK-MED ONE IV (DC) Cefazolin Sodium (ceFAZolin 2 GM Inj) 2 GM PREOP ONCALL IV (CKD) Sodium Chloride (SODIUM CHLORIDE) 20 ML Sodium Chloride (SODIUM CHLORIDE 0.9%) 100 ML ASDIR PRN IV Sodium Chloride (SODIUM CHLORIDE 0.9%) 100 ML ASDIR PRN IV Insulin Glargine (Semglee) 10 UNIT DAILY SUBQ Sterile Water (WATER FOR INJECTION) 5 ML ASDIR PRN IV Amiodarone HCl (CORDARONE) 200 MG DAILY PO Aspirin (ASPIRIN) 81 MG DAILY PO Clopidogrel Bisulfate (Plavix) 75 MG DAILY PO Cyanocobalamin (Vitamin B-12 500 mcg tab) 500 MCG DAILY PO Duloxetine HCl (CYMBALTA) 20 MG DAILY PO Ferrous Sulfate (FERROUS SULFATE) 325 MG DAILY PO Pantoprazole (PROTONIX) 40 MG DAILY@0600 PO Quetiapine Fumarate (SeroqueL) 200 MG BEDTIME PO Atorvastatin Calcium (LIPITOR) 40 MG 2100 PO Gabapentin (NEURONTIN) 600 MG TID PO Insulin Human Lispro (Admelog) 0 AC HS SUBQ Metoprolol Tartrate (LOPRESSOR) 12.5 MG Q12HR PO Morphine Sulfate (morphine SULFATE) 2 MG Q6H PRN PRN IV (DC) Dextrose/Water (DEXTROSE 10% IN WATER) 125 ML ASDIR PRN IV (CKD) Dextrose/Water (DEXTROSE 10% IN WATER) 250 ML ASDIR PRN IV (CKD) Glucagon (GLUCAGON) 1 MG ASDIR PRN IM Furosemide (LASIX 20MG INJ) 20 MG BID 9A 5P IV (DC) Hydrocodone Bitart/Acetaminophen (NORCO 5/325) 1 TAB Q6H PRN PRN PO Magnesium Sulfate (MAGNESIUM SULFATE 2GM/SWFI 50ML) 50 ML ASDIR PRN IV Potassium Chloride (POTASSIUM CHLORIDE 20MEQ TAB.ER) 20 MEQ ASDIR PRN PO Potassium Chloride (POTASSIUM CHLORIDE 20MEQ TAB.ER) 40 MEQ ASDIR PRN PO Acetaminophen (TYLENOL) 650 MG Q4H PRN PRN PO Acetaminophen (TYLENOL) 650 MG Q4H PRN PRN RECTAL Al Hydrox/Mg Hydrox/Simethicone (MYLANTA) 30 ML Q4H PRN PRN PO Docusate Sodium (COLACE) 100 MG BID PRN PRN PO Ondansetron HCl (ZOFRAN) 4 MG Q4H PRN PRN IV Results Findings/Data: Laboratory Tests 11/26/24 1434: [Embedded Image Not Available] 11/26/24 0341: [Embedded Image Not Available] Laboratory Tests 11/26 1254 Blood Gas O2 Saturation (90 - 100 %) 100.0 ABG pH (7.35 - 7.45) 7.434 ABG pCO2 (35.0 - 45 mmHg) 36.9 ABG pO2 (80 - 100.0 mmHg) 453.3 *H ABG HCO3 (22.0 - 26.0 MMOL/L) 24.7 ABG Total CO2 (22 - 29) 25.8 ABG Base Excess (0 - +/ MMOL/L) 0.5 ABG Hematocrit (33 - 45 %) 24 L ABG Hemoglobin (11.0 - 15.0 G/DL) 8.0 L Sodium (134 - 147 mmol/L) 138 Potassium (3.4 - 5.0 mmol/L) 3.4 Chloride (100 - 108 mmol/L) 107 Ionized Calcium (1.12 - 1.32 MMOL/L) 1.12 Lactic Acid (0.9 - 1.7 mmol/l) < 0.3 L Laboratory Tests 11/26 11/26 11/26 11/26 1434 1254 0723 0646 Chemistry Sodium (134 - 147 mEq/L) 138 Potassium (3.4 - 5.0 mEq/L) 3.7 Chloride (100 - 108 mEq/L) 104 Carbon Dioxide (21 - 33 mEq/l) 27 Anion Gap (0 - 20) 11 BUN (7 - 25 mg/dL) 14 Creatinine (0.6 - 1.3 mg/dL) 0.7 POC Creatinine (0.6 - 1.3 mg/dL) 0.6 Glomerular Filtr Rate (90 - 95) 104.0 H Glucose (77 - 141 mg/dL) 249 H POC Glucose (70 - 110 MG/DL) 155 H POC Glucose (mg/dL) (70 - 110 MG/DL) 169 H Calcium (8.0 - 10.5 mg/dL) 7.9 L Serum , Qual (NEGATIVE) SERUM NEGATIVE 11/26 11/25 11/25 0341 8837 2526 Chemistry Sodium (134 - 147 mEq/L) 139 Potassium (3.4 - 5.0 mEq/L) 3.7 Chloride (100 - 108 mEq/L) 105 Carbon Dioxide (21 - 33 mEq/l) 28 Anion Gap (0 - 20) 10 BUN (7 - 25 mg/dL) 16 Creatinine (0.6 - 1.3 mg/dL) 0.8 Glomerular Filtr Rate (90 - 95) 88.6 L Glucose (77 - 141 mg/dL) 158 H POC Glucose (70 - 110 MG/DL) 159 H 114 H Calcium (8.0 - 10.5 mg/dL) 8.1 Magnesium (1.6 - 2.6 mg/dL) 2.22 Total Bilirubin (0.0 - 1.0 mg/dL) 0.40 AST (8 - 34 IUnit/L) 72 H ALT (10 - 49 IUnit/L) 83 H Total Alk Phosphatase (20 - 125 IUnit/L) 98 Total Protein (5.7 - 8.2 g/dL) 6.1 Albumin (3.4 - 5.0 g/dL) 2.40 L Laboratory Tests 11/26 11/26 1306 0341 Coagulation INR (0.8 - 1.2) 1.3 H PTT ([place]) (25.0 - 39.5 Seconds) 29.7 PT Patient/Control Mix (9.3 - 12.9 SECONDS) 14.0 H Activated Coag Time (74 - 137 SEC) 152 H Laboratory Tests 11/26 11/26 1434 0341 Hematology WBC (4.5 - 11.0 x10 3/uL) 4.0 L RBC (3.54 - 5.02 x10 6/uL) 2.95 L Hgb (11.0 - 15.0 g/dL) 7.6 L 7.3 L Hct (33.0 - 45.0 %) 26.3 L 25.1 L MCV (81.0 - 99.0 fL) 85.1 MCH (27.0 - 33.0 pg) 24.7 L MCHC (33.0 - 37.0 g/dL) 29.1 L RDW (11.5 - 14.5 %) 19.3 H Plt Count (150 - 400 x10 3/uL) 178 MPV (7.0 - 9.0 fL) 11.1 H Neut % (Auto) (56.0 - 77.0 %) 55.4 L Lymph % (Auto) (14.0 - 32.0 %) 24.4 [place] % (Auto) (4.8 - 9.0 %) 11.7 H Eos % (Auto) (0.3 - 3.7 %) 7.0 H Baso % (Auto) (0.0 - 2.0 %) 0.5 Neut # (Auto) (2.0 - 7.6 x10 3/uL) 2.22 Lymph # (Auto) (1.0 - 3.8 x10 3/uL) 0.98 L [place] # (Auto) (0.1 - 0.8 x10 3/uL) 0.47 Eos # (Auto) (0.0 - 0.2 x10 3/uL) 0.28 H Baso # (Auto) (0.0 - 0.2 x10 3/uL) 0.02 Abs Immat Gran (auto) (0.00 - 0.03 x10 3/uL) 0.04 H Immature Gran % (0.0 - 2.0 %) 1.0 Nucleated RBC % (0 - 0 %) 0.0 Nucleated RBCs # (Man) (0.0 - 0.1 x10 3/uL) 0.00 Microbiology: 11/25 1321 NASAL: MSSA Surveillance Screen - ORD 11/25 1321 NASAL: MRSA DNA Surveillance Screen - ORD 11/24 1901 Blood: Blood Culture - RES 11/24 1901 Blood: Blood Culture Gram Stain - RES Radiology data: Recent Impressions: RADIOLOGY - XR CHEST 1 V 11/26 0552 Report Impression - Status: SIGNED Entered: 11/26/2024 08 IMPRESSION: Worsening CHF and increasing effusions. Impression By: [email or web address] Pulido M.D. Free Text Obj Notes Free Text Obj Notes: GEN: Elderly female in no acute distress, interactive and conversational HEENT: Atraumatic, normocephalic, moist mucous membranes NECK: Supple, good range of motion, no tenderness LUNGS: Symmetrical air entry, no acute respiratory distress CV: S1, S2 regular rate and rhythm GI: Abdomen is soft, not tender or distended EXT/Musc: No edema or cyanosis. Pedal pulses present Skin: Surgical site clean, dry and intact. Warm to touch NEURO: Awake, alert and oriented x3. No facial droop or focal deficit Diagnosis, Assessment Plan Diagnosis, Assessment Plan Consultants: cardiology Free text DxA P: 54-year-old female admitted to CVICU Status post pericardial window History of recent CABG on 11/09/2024 Bilateral pleural effusions Diabetes with hemoglobin A1c 8 Hypertension Hyperlipidemia Pain control. Will add Robaxin. [place]. Patient is being diuresed with Lasix 40 IV twice daily. Is on glargine 10 units daily. Replete electrolytes. Creatinine stable. Continue aspirin Plavix. Resume home medications the Seroquel. On beta-trell. In sinus rhythm. SCDs for DVT prophylaxis. The mediastinal chest tube has continuous bubbling continue monitor for now. The left pleural chest tube put out 700 in the OR and 100 so far. Will reassess and discontinue orally if no more fluid on the pleural space. Full code. Total critical care time 31 minutes excluding procedures at 1706 RPT #:[id number] END OF REPORT [facility] 2024-11-26 12:20:00 [facility] ([facility] Cardiology Progress Note REPORT#:[id number] REPORT STATUS: Signed REPORT INITIALIZATION DATE:11/26/24 TIME: 1220 PATIENT: YUNIER PRATT UNIT #: [id number] ROOM/BED: [place] [id number] : 74 AGE: 54 SEX: F ATTEND: Antoinette Ross MD ADM AUTHOR: Fay FernandezCNSaad REPT SERVICE DT/TIME: 11/26/24 1220 * ALL edits or amendments must be made on the electronic/computer document * Subjective Comments: s/p pericardial window, complaining of incisional pain. Objective General VS/I O: 24 hour I O ending at 0700: 11/26 0700 11/25 1900 Intake Total 360 Output Total 200 1400 Balance -200 -1040 Intake, Oral 360 Output, Urine 200 1400 Patient 69.853 kg Weight Vital Signs: Date Time Temp Pulse Resp B/P B/P Pulse O2 O2 Flow FiO2 Mean Ox Delivery Rate 11/26 1115 62 20 155/51 76 92 04/07 1100 62 23 105/71 90 92 04/07 1030 62 19 148/54 79 96 04/07 1024 63 22 152/52 78 94 04/07 0900 70 24 138/68 96 95 04/07 0734 36.8 04/07 0707 64 14 120/57 82 93 04/07 0630 65 11 91 04/07 0600 61 14 93 04/07 0521 63 16 121/57 81 92 04/07 0434 92 Nasal 2 cannula 04/07 0400 61 16 106/54 77 92 04/07 0333 65 17 122/60 86 94 04/07 0300 60 15 98/55 73 94 04/07 0200 60 15 97/53 72 94 04/07 0100 60 15 98/53 72 95 04/07 0000 58 15 98/54 72 94 04/06 2300 57 14 95/51 66 95 04/06 2230 58 14 95 04/06 2200 59 15 106/58 78 93 04/06 2130 59 22 93 04/06 2100 37.0 04/06 2100 68 22 118/65 86 96 04/06 1851 36.9 65 16 116/67 83.3 100 04/06 1548 37.0 66 15 126/75 91.7 100 PATIENT WEIGHT: Weight (lb): 154 Weight (oz): 10.82 Weight (kg): 69.853 Medications: Active Meds + DC'd Last 24 Hrs Cefazolin Sodium (KEFZOL OR ANCEF) 0 .STK-MED ONE .ROUTE (DC) Lidocaine HCl (Lidocaine PF1% 20 mg/2 mL Inj) 2 ML .STK-MED ONE LOCAL ( DC) Furosemide (LASIX 40 mg/4 mL INJECTION) 40 MG BID 9A 5P IV Mupirocin (BACTROBAN 2% 22 GM OINTMENT) 1 APPLIC BID NASAL Dexamethasone Sodium Phosphate (DECADRON) 0 .STK-MED ONE .ROUTE (DC) Fentanyl Citrate (SUBLIMAZE) 0 .STK-MED ONE .ROUTE (DC) Lidocaine HCl (XYLOCAINE) 0 .STK-MED ONE .ROUTE (DC) Midazolam HCl (VERSED) 0 .STK-MED ONE .ROUTE (DC) Norepinephrine Bitartrate (LEVOPHED BITARTATE) 0 .STK-MED ONE IV (DC) Ondansetron HCl (ZOFRAN) 0 .STK-MED ONE .ROUTE (DC) Propofol (DIPRIVAN 200MG/20ML INJECTION) 20 ML .STK-MED ONE IV (DC) Rocuronium Basom (ZEMURON) 0 .STK-MED ONE IV (DC) Cefazolin Sodium (ceFAZolin 2 GM Inj) 2 GM PREOP ONCALL IV (CKD) Sodium Chloride (SODIUM CHLORIDE) 20 ML Methocarbamol (ROBAXIN) 500 MG ONCE ONE PO (DC) Sodium Chloride (SODIUM CHLORIDE 0.9%) 100 ML ASDIR PRN IV Sodium Chloride (SODIUM CHLORIDE 0.9%) 100 ML ASDIR PRN IV Insulin Glargine (Semglee) 10 UNIT DAILY SUBQ Sterile Water (WATER FOR INJECTION) 5 ML ASDIR PRN IV Amiodarone HCl (CORDARONE) 200 MG DAILY PO Aspirin (ASPIRIN) 81 MG DAILY PO Clopidogrel Bisulfate (Plavix) 75 MG DAILY PO Cyanocobalamin (Vitamin B-12 500 mcg tab) 500 MCG DAILY PO Duloxetine HCl (CYMBALTA) 20 MG DAILY PO Ferrous Sulfate (FERROUS SULFATE) 325 MG DAILY PO Pantoprazole (PROTONIX) 40 MG DAILY@0600 PO Quetiapine Fumarate (SeroqueL) 200 MG BEDTIME PO Atorvastatin Calcium (LIPITOR) 40 MG 2100 PO Gabapentin (NEURONTIN) 600 MG TID PO Insulin Human Lispro (Admelog) 0 AC HS SUBQ Metoprolol Tartrate (LOPRESSOR) 12.5 MG Q12HR PO Morphine Sulfate (morphine SULFATE) 2 MG Q6H PRN PRN IV Dextrose/Water (DEXTROSE 10% IN WATER) 125 ML ASDIR PRN IV (CKD) Dextrose/Water (DEXTROSE 10% IN WATER) 250 ML ASDIR PRN IV (CKD) Glucagon (GLUCAGON) 1 MG ASDIR PRN IM Furosemide (LASIX 20MG INJ) 20 MG BID 9A 5P IV (DC) Hydrocodone Bitart/Acetaminophen (NORCO 5/325) 1 TAB Q6H PRN PRN PO Magnesium Sulfate (MAGNESIUM SULFATE 2GM/SWFI 50ML) 50 ML ASDIR PRN IV Potassium Chloride (POTASSIUM CHLORIDE 20MEQ TAB.ER) 20 MEQ ASDIR PRN PO Potassium Chloride (POTASSIUM CHLORIDE 20MEQ TAB.ER) 40 MEQ ASDIR PRN PO Acetaminophen (TYLENOL) 650 MG Q4H PRN PRN PO Acetaminophen (TYLENOL) 650 MG Q4H PRN PRN RECTAL Al Hydrox/Mg Hydrox/Simethicone (MYLANTA) 30 ML Q4H PRN PRN PO Docusate Sodium (COLACE) 100 MG BID PRN PRN PO Ondansetron HCl (ZOFRAN) 4 MG Q4H PRN PRN IV Physical Exam General appearance: alert, awake, oriented Neck: non-tender Cardiovascular: CV assessment: regular rate and rhythm Respiratory: decreased breath sounds, on oxygen, shortness of breath Abdomen: soft, non-tender Genitourinary: no urinary catheter Lower extremity: LE assessment: no edema Musculoskeletal: normal inspection Neuro/REWRITER: alert, oriented X 3, normal speech Skin: dry, intact, normal color Psychiatry: anxious Results Findings/Data: Laboratory Tests 11/26 11/26 11/26 11/25 0723 0646 6041 2133 Chemistry Sodium (134 - 147 mEq/L) 139 Potassium (3.4 - 5.0 mEq/L) 3.7 Chloride (100 - 108 mEq/L) 105 Carbon Dioxide (21 - 33 mEq/l) 28 Anion Gap (0 - 20) 10 BUN (7 - 25 mg/dL) 16 Creatinine (0.6 - 1.3 mg/dL) 0.8 Glomerular Filtr Rate (90 - 95) 88.6 L Glucose (77 - 141 mg/dL) 158 H POC Glucose (70 - 110 MG/DL) 155 H 159 H Calcium (8.0 - 10.5 mg/dL) 8.1 Magnesium (1.6 - 2.6 mg/dL) 2.22 Total Bilirubin (0.0 - 1.0 mg/dL) 0.40 AST (8 - 34 IUnit/L) 72 H ALT (10 - 49 IUnit/L) 83 H Total Alk Phosphatase (20 - 125 IUnit/L) 98 Total Protein (5.7 - 8.2 g/dL) 6.1 Albumin (3.4 - 5.0 g/dL) 2.40 L Serum , Qual (NEGATIVE) SERUM NEGATIVE 11/25 11/25 3378 7424 Chemistry POC Glucose (70 - 110 MG/DL) 114 H 152 H Laboratory Tests 11/26 0341 Coagulation INR (0.8 - 1.2) 1.3 H PTT ([place]) (25.0 - 39.5 Seconds) 29.7 PT Patient/Control Mix (9.3 - 12.9 SECONDS) 14.0 H Laboratory Tests 11/26 0341 Hematology WBC (4.5 - 11.0 x10 3/uL) 4.0 L RBC (3.54 - 5.02 x10 6/uL) 2.95 L Hgb (11.0 - 15.0 g/dL) 7.3 L Hct (33.0 - 45.0 %) 25.1 L MCV (81.0 - 99.0 fL) 85.1 MCH (27.0 - 33.0 pg) 24.7 L MCHC (33.0 - 37.0 g/dL) 29.1 L RDW (11.5 - 14.5 %) 19.3 H Plt Count (150 - 400 x10 3/uL) 178 MPV (7.0 - 9.0 fL) 11.1 H Neut % (Auto) (56.0 - 77.0 %) 55.4 L Lymph % (Auto) (14.0 - 32.0 %) 24.4 [place] % (Auto) (4.8 - 9.0 %) 11.7 H Eos % (Auto) (0.3 - 3.7 %) 7.0 H Baso % (Auto) (0.0 - 2.0 %) 0.5 Neut # (Auto) (2.0 - 7.6 x10 3/uL) 2.22 Lymph # (Auto) (1.0 - 3.8 x10 3/uL) 0.98 L [place] # (Auto) (0.1 - 0.8 x10 3/uL) 0.47 Eos # (Auto) (0.0 - 0.2 x10 3/uL) 0.28 H Baso # (Auto) (0.0 - 0.2 x10 3/uL) 0.02 Abs Immat Gran (auto) (0.00 - 0.03 x10 3/uL) 0.04 H Immature Gran % (0.0 - 2.0 %) 1.0 Nucleated RBC % (0 - 0 %) 0.0 Nucleated RBCs # (Man) (0.0 - 0.1 x10 3/uL) 0.00 Laboratory Tests 11/26 0341 Chemistry Magnesium (1.6 - 2.6 mg/dL) 2.22 Radiology data: Recent Impressions: RADIOLOGY - XR CHEST 1 V 11/26 0552 Report Impression - Status: SIGNED Entered: 11/26/2024 08 IMPRESSION: Worsening CHF and increasing effusions. Impression By: MitchBhupinder Pulido M.D. Results: labs reviewed, vital signs reviewed, rhythm personally rev'd Telemetry Interpretation: NSR Diagnosis, Assessment Plan Plan discussed with: patient, consultants (CTS PERSONAL INJURY SPECIALIST), nurse Free Text DxA P Notes Free Text DxA P Notes: 54 YO female with MH of CAD, PR, recent CABG x5V, HTN, DM, diastolic CHF, longtime heavy smoker. She underwent CABG x5 on November 09, 2024 . Post CABG she developed post-op anemia (s/p PRBC transfusion), thrombocytopenia, as well pleural effusion (s/p bilateral thoracentesis). She was discharged on 2024. Unfortunately she presented back to [facility] on 11/24/2024 with complaint of shortness of breath, cough, generalized edema. Chest imaging at OSH revealed pleural effusion. She was transferred to [facility] for further management. Her echocardiogram revealed large pericardial effusion. 1. [id number] Diastolic CHF exacerbation * continue Lasix 40 mg IV BID * strict I/O 2. Pericardial effusion * 11/26/2024: underwent pericardial window 3. Pleural effusion * 11/26/2024: underwent chest tube placement * continue IV Lasix 40 mg IV BID 4. Coronary artery disease s/p CABG x5 (11/09/2024) * S/p CABG (ASH-LAD, SVG-OM1, SVG-OM2, SVG-Diag, SVG-PDA) * on Plavix ASA, BB, statin 5. Hypertension * BP stable * continue metoprolol 12.5 mg BID 6. Diabetes mellitus * manage per CTS 7. Anemia * hgb 7.6 * on iron supplement Medical decision making by Dr. Lindquist. at 2313 RPT #:[id number] END OF REPORT [facility] 2024-11-25 08:56:00 [facility] Cardiothoracic Surgery Prog REPORT#:[id number] REPORT STATUS: Signed REPORT INITIALIZATION DATE:11/25/24 TIME: 855 PATIENT: YUNIER PRATT UNIT #: [id number] ROOM/BED: [place] [address] : 72 AGE: 54 SEX: F ATTEND: Antoinette Ross MD ADM AUTHOR: Vanessa Sams APRN REPT SERVICE DT/TIME: 11/25/24 0856 * ALL edits or amendments must be made on the electronic/computer document * See Addendum General Post-op: post surgery rounds Subjective Chief complaint: reports feeling better after BM Review of Systems Constitutional: Denies: chills, fatigue, generalized weakness. Skin: Denies: abrasion, contusion, ecchymosis. Allergy/Immun: Denies: allergic reaction, hives, itching. Eyes: Denies: redness, visual loss/blurred, diplopia. Cardiovascular: Denies: chest pain, palpitations. GI: Denies: abdominal pain, nausea, vomiting. : Denies: dysuria, flank pain. Heme: Denies: adenopathy, bleeding. Neuro: Denies: dizziness, seizure, syncope. All systems rev neg: except as marked Objective General VS/I O Last Documented: Result Date Time Temp 98.2 11/25 07 Pulse Ox 89 04/06 0720 B/P 118/71 11/26 719 B/P Mean 86.5 11/26 719 Pulse 74 11/26 719 Resp 15 11/26 719 O2 Delivery Nasal cannula 11/24 1909 O2 Flow Rate 2 11/24 1909 24 hour I O ending at 0700: 11/25 Intake Total 250 200 Output Total Balance 250 200 Intake, Oral 250 200 Number Voids 2 Patient 70.16 kg Weight Weight Standing scale Measurement Method PATIENT WEIGHT: Weight (lb): 154 Weight (oz): 10.82 Weight (kg): 70.160 Dietitian Nutrition assessment The data set between the solid lines has been imported from the dietitian's assessment. BMI Calculated: 25.0 Nutrition related diagnosis: Nutrition diagnosis details: Nutrition problem: Nutrition etiology: Nutrition signs and symptoms: Nutrition prescription: Dietitian name: Assessment completed: Physical Exam General appearance: alert, awake, oriented Wound/incision: Location: sternum Site condition: dressing clean dry, dressing intact HEENT: mucosal membranes moist Cardiovascular: normal heart sounds Respiratory: aerating well, symmetric expansion Abdomen: soft, non-tender Genitourinary: no bladder distention, no flank pain Extremities: dry, moves all Neuro/REWRITER: alert, oriented X 3 Skin: dry, intact Psychiatry: normal affect, normal mood Current Medications Medications: Active Meds + DC'd Last 24 Hrs Quetiapine Fumarate (SeroqueL) 200 MG BEDTIME PO (DC) Amiodarone HCl (CORDARONE) 200 MG DAILY PO Aspirin (ASPIRIN) 81 MG DAILY PO Clopidogrel Bisulfate (Plavix) 75 MG DAILY PO Cyanocobalamin (Vitamin B-12 500 mcg tab) 500 MCG DAILY PO Duloxetine HCl (CYMBALTA) 20 MG DAILY PO Ferrous Sulfate (FERROUS SULFATE) 325 MG DAILY PO Pantoprazole (PROTONIX) 40 MG DAILY@0600 PO Quetiapine Fumarate (SeroqueL) 200 MG BEDTIME PO Atorvastatin Calcium (LIPITOR) 40 MG 2100 PO Gabapentin (NEURONTIN) 600 MG TID PO Insulin Human Lispro (Admelog) 0 AC HS SUBQ Metoprolol Tartrate (LOPRESSOR) 12.5 MG Q12HR PO Morphine Sulfate (morphine SULFATE) 2 MG Q6H PRN PRN IV Dextrose/Water (DEXTROSE 10% IN WATER) 125 ML ASDIR PRN IV (CKD) Dextrose/Water (DEXTROSE 10% IN WATER) 250 ML ASDIR PRN IV (CKD) Glucagon (GLUCAGON) 1 MG ASDIR PRN IM Furosemide (LASIX 20MG INJ) 20 MG BID 9A 5P IV Hydrocodone Bitart/Acetaminophen (NORCO 5/325) 1 TAB Q6H PRN PRN PO Magnesium Sulfate (MAGNESIUM SULFATE 2GM/SWFI 50ML) 50 ML ASDIR PRN IV Potassium Chloride (POTASSIUM CHLORIDE 20MEQ TAB.ER) 20 MEQ ASDIR PRN PO Potassium Chloride (POTASSIUM CHLORIDE 20MEQ TAB.ER) 40 MEQ ASDIR PRN PO Acetaminophen (TYLENOL) 650 MG Q4H PRN PRN PO Acetaminophen (TYLENOL) 650 MG Q4H PRN PRN RECTAL Al Hydrox/Mg Hydrox/Simethicone (MYLANTA) 30 ML Q4H PRN PRN PO Docusate Sodium (COLACE) 100 MG BID PRN PRN PO Ondansetron HCl (ZOFRAN) 4 MG Q4H PRN PRN IV Fentanyl Citrate (SUBLIMAZE) 25 MCG X1ED STA IV (DC) Results Findings/Data: Laboratory Tests 11/25 11/25 11/24 11/24 11/24 0737 0440 2107 1223 1223 Chemistry Sodium (134 - 147 mEq/L) 137 130 L Potassium (3.4 - 5.0 mEq/L) 4.1 5.0 Chloride (100 - 108 mEq/L) 102 97 L Carbon Dioxide (21 - 33 mEq/l) 29 26 Anion Gap (0 - 20) 10 12 BUN (7 - 25 mg/dL) 21 24 Creatinine (0.6 - 1.3 mg/dL) 0.8 1.0 Glomerular Filtr Rate (90 - 95) 88.6 L 67.8 L Glucose (77 - 141 mg/dL) 235 H 158 H POC Glucose (70 - 110 MG/DL) 248 H 236 H Calcium (8.0 - 10.5 mg/dL) 7.9 L 8.6 Magnesium (1.6 - 2.6 mg/dL) 2.17 Total Bilirubin (0.0 - 1.0 mg/dL) 0.30 0.30 AST (8 - 34 IUnit/L) 60 H 107 H ALT (10 - 49 IUnit/L) 71 H 91 H Total Alk Phosphatase (20 - 125 102 122 IUnit/L) B-Natriuretic Peptide (0 - 100 PG/ML) 318.0 H Total Protein (5.7 - 8.2 g/dL) 5.8 6.7 Albumin (3.4 - 5.0 g/dL) 2.40 L 2.90 L Laboratory Tests 11/24 1223 Coagulation INR (0.8 - 1.2) 1.2 PT Patient/Control Mix (9.3 - 12.9 SECONDS) 13.7 H Laboratory Tests 11/25 04/05 0440 1223 Hematology WBC (4.5 - 11.0 x10 3/uL) 4.4 L 7.8 RBC (3.54 - 5.02 x10 6/uL) 2.83 L 3.04 L Hgb (11.0 - 15.0 g/dL) 7.0 L 7.7 L Hct (33.0 - 45.0 %) 23.7 L 25.7 L MCV (81.0 - 99.0 fL) 83.7 84.5 MCH (27.0 - 33.0 pg) 24.7 L 25.3 L MCHC (33.0 - 37.0 g/dL) 29.5 L 30.0 L RDW (11.5 - 14.5 %) 19.1 H 19.8 H Plt Count (150 - 400 x10 3/uL) 169 201 MPV (7.0 - 9.0 fL) 11.1 H 11.7 H Neut % (Auto) (56.0 - 77.0 %) 67.1 74.8 Lymph % (Auto) (14.0 - 32.0 %) 15.8 11.8 L [place] % (Auto) (4.8 - 9.0 %) 11.5 H 9.6 H Eos % (Auto) (0.3 - 3.7 %) 4.4 H 2.9 Baso % (Auto) (0.0 - 2.0 %) 0.5 0.4 Neut # (Auto) (2.0 - 7.6 x10 3/uL) 2.93 5.85 Lymph # (Auto) (1.0 - 3.8 x10 3/uL) 0.69 L 0.92 L [place] # (Auto) (0.1 - 0.8 x10 3/uL) 0.50 0.75 Eos # (Auto) (0.0 - 0.2 x10 3/uL) 0.19 0.23 H Baso # (Auto) (0.0 - 0.2 x10 3/uL) 0.02 0.03 Abs Immat Gran (auto) (0.00 - 0.03 x10 3/uL) 0.03 0.04 H Immature Gran % (0.0 - 2.0 %) 0.7 0.5 Nucleated RBC % (0 - 0 %) 0.0 0.0 Nucleated RBCs # (Man) (0.0 - 0.1 x10 3/uL) 0.00 0.00 Radiology data: Recent Impressions: RADIOLOGY - XR CHEST 2 V 11/24 1333 Report Impression - Status: SIGNED Entered: 11/24/2024 1523 IMPRESSION: Cardiomegaly with central congestion and infrahilar opacities suggestive of atelectasis and or dependent edema. Suspect small posterior pleural effusions. Superimposed infectious process should be clinically excluded. Location: H2 Impression By: Janet Winters M.D. Results: labs reviewed, vital signs stable, rythm personally rev'd, x-ray personally reviewed, current med profile rev'd Treatment Prophylaxis Treatment Prophylaxis CVC/PICC documentation: The data below has been imported from nursing documentation. Any exceptions have been noted below under Provider comments. CVC/PICC insertion date/time: Provider comments on imported nursing data: [] Quality: Trauma Gen Surg Current Medications Current medication review: I attest that the foregoing medication list in the medical record is true, accurate, and complete to the best of my knowledge. Diagnosis, Assessment Plan Hospital course to date: This is a 54-year-old female with a past medical history of hypertension, diabetes on insulin, and neuropathy who had a recent NSTEMI and had severe MVD. Patient had successful CABG x 5 (ASH to LAD, saphenous vein to diagonal, saphenous vein to first marginal, saphenous vein to second marginal, saphenous vein to PDA), ALAA on 11/09/24. Patient had bilateral pleural effusions drained prior to discharge on 11/21/24 with pigtail chest tube catheters, later in which were removed. Patient denies any alcohol or drug use. He does report half pack a day smoking for the past 40 years. 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 Patient presents to OSH with shortness of breath and reports acute onset of symptoms that began 2-3 days ago. She admits to associated cough productive sputum, chest pain and global swelling. Her CXR revealed a pleural effusion. Her notable lab findings were as follows: H/H 8.5/26.2, AST 105, ALT, 95, alk phos 124, troponin 530.5 and BNP 4063. She denies fever, abdominal pain, nausea /vomiting, melena, hematuria, hematochezia or calf pain. Assessment/plan: 1. Shortness of breath 2. Pleural effusion 3. Status post CABG 4. Hypertension 5. Neuropathy 6. Type 2 diabetes Admit to observation unit Monitor on telemetry for arrhythmia Labs reviewed, replace electrolytes as needed Diurese patient with IV Lasix Echocardiogram Encourage incentive spirometer use PT/OT Resume home medications and adjust as needed SCDs for DVT prophylaxis Cardiology consulted Further recommendations based on clinical course Patient seen and examined. Discussed plan of care with patient, all patient's questions have been answered MDM done by Dr. Little 11/25 Patient alert, awake, oriented, reports feeling better Labs reviewed, replace electrolytes as needed Wean off oxygen, currently on 2 L nasal cannula, I-S use encouraged Normal sinus rhythm, monitoring blood pressure closely Echocardiogram pending Strict I's and O's and daily weights, weight trending down, diurese with Lasix, give Diamox today Out of bed to chair for all meals, ambulate, PT OT following Patient seen and examined. Discussed plan of care with patient, all questions answered. MDM done by Dr. Little Problem List/A P: 1. Pleural effusion 2. CAD (coronary artery disease) 3. DM (diabetes mellitus) 4. HTN (hypertension) 5. S/P CABG x 5 Orders: Procedure Date/time Status Strict I O 11/25 1935 Active Daily Weight 11/25 1935 Active CULTURE BLOOD 11/24 1816 Active PROTHROMBIN TIME 11/24 175 Complete MAGNESIUM 11/24 175 Complete COMPREHENSIVE METABOLIC PANEL 11/25 1751 Complete CBC W/AUTO DIFF 11/24 175 Complete B TYPE NATRIURETIC PEPT 11/25 1751 Complete Educate/Teach Patient 11/24 1750 Active Notify MD: Hypoglycemia 11/24 175 Active NPO/Low Intake Insulin Instr 11/24 175 Active Hypoglycemia Orders 11/24 175 Active Educate/Teach Hypoglycemia 11/24 175 Active Correctional Insulin Instr 11/24 175 Active Consultants: cardiology Code status: full code Plan discussed with: patient, collaborating MD, nurse at 0919 at 1315 Addendum 1: 11/25/24 1317 by Vanessa Sams APRN Echocardiogram reviewed, patient will benefit from drainage of pericardial effusion. Discussed with patient need for pericardial window creation. Explained to the patient the operation, risks involved, benefits, alternatives, complications. Patient acknowledges understanding and is agreeable to proceed with surgery. All questions have been answered. Preop orders and testing entered. at 1318 at 1315 RPT #:[id number] END OF REPORT [facility] 2024-11-25 08:07:00 [facility] ([facility] Cardiology Consultation REPORT#:[id number] REPORT STATUS: Signed REPORT INITIALIZATION DATE:11/25/24 TIME: 08 PATIENT: YUNIER PRATT UNIT #: [id number] ROOM[place]BED: [facility] [place] : 74 AGE: 54 SEX: F ATTEND: Antoinette Ross MD ADM AUTHOR: Sharon Lindquist MD REPT SERVICE DT/TIME: 11/25/24 0807 * ALL edits or amendments must be made on the electronic/computer document * History of Present Illness HPI Requesting Clinician: Dr. Ross Reason for consult: SOB, CAD Chief complaint: SOB PCP: PCP: No Primary or Family Physician HPI: 54 YO female with MH of CAD, PR, recent CABG x5V, HTN, DM, diastolic CHF, longtime heavy smoker. She underwent CABG x5 on November 09, 2024 . Post CABG she developed post-op anemia (s/p PRBC transfusion), thrombocytopenia, as well pleural effusion (s/p bilateral thoracentesis). She was discharged on 2024. Unfortunately she presented back to [facility] on 11/24/2024 with complaint of shortness of breath, cough, generalized edema. Chest imaging at OSH revealed pleural effusion. She was transferred to [facility] for further management. Her echocardiogram revealed large pericardial effusion. History - Adult longitudinal Past medical history: Reports: COPD, Coronary artery disease, Diabetes mellitus, Hypertension, Dyslipidemia. Additional medical history: Neuropathy Past surgical history: Reports: CABG. 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) Drug use: Denies recreational drugs Smoking status for patients 13 years old or older: Former Smoker (quit 10/2024) Date last smoked: 11/13/24 Packs per day: 1 Years smoked: 37 Pack years: 37 Allergies: Coded Allergies: heparin (BLOOD CLOT 11/24/24) HIT (+) Review of Systems Additional notes: As per HPI otherwise -12 system point Objective General VS/I O: Vital Signs: Date Time Temp Pulse Resp B/P B/P Pulse O2 O2 Flow FiO2 Mean Ox Delivery Rate 11/25 738 98.2 11/25 0720 74 15 118/71 86.5 89 11/25 0345 98.4 73 14 108/58 75.0 91 11/24 2328 98.6 75 18 102/59 73.5 97 11/24 1910 Nasal 2 cannula 11/24 1805 101.1 77 18 99/55 69.8 97 11/24 1742 Nasal 2 cannula 11/24 1529 99.5 70 16 131/75 93.9 94 11/24 1351 113/74 11/24 1246 14 11/24 1245 60 100 11/24 1212 98.6 62 20 / 93 Room air 24 hour I O ending at 0700: 11/25 0700 11/24 1900 Intake Total 250 200 Output Total Balance 250 200 Intake, Oral 250 200 Number Voids 2 Patient 70.16 kg Weight Weight Standing scale Measurement Method PATIENT WEIGHT: Weight (lb): 154 Weight (oz): 10.82 Weight (kg): 70.160 Medications: Active Meds + DC'd Last 24 Hrs Quetiapine Fumarate (SeroqueL) 200 MG BEDTIME PO (DC) Amiodarone HCl (CORDARONE) 200 MG DAILY PO Aspirin (ASPIRIN) 81 MG DAILY PO Clopidogrel Bisulfate (Plavix) 75 MG DAILY PO Cyanocobalamin (Vitamin B-12 500 mcg tab) 500 MCG DAILY PO Duloxetine HCl (CYMBALTA) 20 MG DAILY PO Ferrous Sulfate (FERROUS SULFATE) 325 MG DAILY PO Pantoprazole (PROTONIX) 40 MG DAILY@0600 PO Quetiapine Fumarate (SeroqueL) 200 MG BEDTIME PO Atorvastatin Calcium (LIPITOR) 40 MG 2100 PO Gabapentin (NEURONTIN) 600 MG TID PO Insulin Human Lispro (Admelog) 0 AC HS SUBQ Metoprolol Tartrate (LOPRESSOR) 12.5 MG Q12HR PO Morphine Sulfate (morphine SULFATE) 2 MG Q6H PRN PRN IV Dextrose/Water (DEXTROSE 10% IN WATER) 125 ML ASDIR PRN IV (CKD) Dextrose/Water (DEXTROSE 10% IN WATER) 250 ML ASDIR PRN IV (CKD) Glucagon (GLUCAGON) 1 MG ASDIR PRN IM Furosemide (LASIX 20MG INJ) 20 MG BID 9A 5P IV Hydrocodone Bitart/Acetaminophen (NORCO 5/325) 1 TAB Q6H PRN PRN PO Magnesium Sulfate (MAGNESIUM SULFATE 2GM/SWFI 50ML) 50 ML ASDIR PRN IV Potassium Chloride (POTASSIUM CHLORIDE 20MEQ TAB.ER) 20 MEQ ASDIR PRN PO Potassium Chloride (POTASSIUM CHLORIDE 20MEQ TAB.ER) 40 MEQ ASDIR PRN PO Acetaminophen (TYLENOL) 650 MG Q4H PRN PRN PO Acetaminophen (TYLENOL) 650 MG Q4H PRN PRN RECTAL Al Hydrox/Mg Hydrox/Simethicone (MYLANTA) 30 ML Q4H PRN PRN PO Docusate Sodium (COLACE) 100 MG BID PRN PRN PO Ondansetron HCl (ZOFRAN) 4 MG Q4H PRN PRN IV Fentanyl Citrate (SUBLIMAZE) 25 MCG X1ED STA IV (DC) Physical Exam General appearance: alert, awake, oriented Head/Eyes: PERRLA ENT: normal nose Neck: no JVD Cardiovascular: CV assessment: regular rate and rhythm Respiratory: clear to auscultation Abdomen: soft Lower extremity: LE assessment: edema Neuro/REWRITER: alert, oriented X 3, normal speech Psychiatry: normal affect, normal judgment/insight, normal mood, no hallucinations Results Findings/Data: Laboratory Tests 11/25 11/24 11/24 11/24 0440 2107 1223 1223 Chemistry Sodium (134 - 147 mEq/L) 137 130 L Potassium (3.4 - 5.0 mEq/L) 4.1 5.0 Chloride (100 - 108 mEq/L) 102 97 L Carbon Dioxide (21 - 33 mEq/l) 29 26 Anion Gap (0 - 20) 10 12 BUN (7 - 25 mg/dL) 21 24 Creatinine (0.6 - 1.3 mg/dL) 0.8 1.0 Glomerular Filtr Rate (90 - 95) 88.6 L 67.8 L Glucose (77 - 141 mg/dL) 235 H 158 H POC Glucose (70 - 110 MG/DL) 236 H Calcium (8.0 - 10.5 mg/dL) 7.9 L 8.6 Magnesium (1.6 - 2.6 mg/dL) 2.17 Total Bilirubin (0.0 - 1.0 mg/dL) 0.30 0.30 AST (8 - 34 IUnit/L) 60 H 107 H ALT (10 - 49 IUnit/L) 71 H 91 H Total Alk Phosphatase (20 - 125 IUnit/L) 102 122 B-Natriuretic Peptide (0 - 100 PG/ML) 318.0 H Total Protein (5.7 - 8.2 g/dL) 5.8 6.7 Albumin (3.4 - 5.0 g/dL) 2.40 L 2.90 L Laboratory Tests 11/24 1223 Coagulation INR (0.8 - 1.2) 1.2 PT Patient/Control Mix (9.3 - 12.9 SECONDS) 13.7 H Laboratory Tests 11/25 11/24 0440 1223 Hematology WBC (4.5 - 11.0 x10 3/uL) 4.4 L 7.8 RBC (3.54 - 5.02 x10 6/uL) 2.83 L 3.04 L Hgb (11.0 - 15.0 g/dL) 7.0 L 7.7 L Hct (33.0 - 45.0 %) 23.7 L 25.7 L MCV (81.0 - 99.0 fL) 83.7 84.5 MCH (27.0 - 33.0 pg) 24.7 L 25.3 L MCHC (33.0 - 37.0 g/dL) 29.5 L 30.0 L RDW (11.5 - 14.5 %) 19.1 H 19.8 H Plt Count (150 - 400 x10 3/uL) 169 201 MPV (7.0 - 9.0 fL) 11.1 H 11.7 H Neut % (Auto) (56.0 - 77.0 %) 67.1 74.8 Lymph % (Auto) (14.0 - 32.0 %) 15.8 11.8 L [place] % (Auto) (4.8 - 9.0 %) 11.5 H 9.6 H Eos % (Auto) (0.3 - 3.7 %) 4.4 H 2.9 Baso % (Auto) (0.0 - 2.0 %) 0.5 0.4 Neut # (Auto) (2.0 - 7.6 x10 3/uL) 2.93 5.85 Lymph # (Auto) (1.0 - 3.8 x10 3/uL) 0.69 L 0.92 L [place] # (Auto) (0.1 - 0.8 x10 3/uL) 0.50 0.75 Eos # (Auto) (0.0 - 0.2 x10 3/uL) 0.19 0.23 H Baso # (Auto) (0.0 - 0.2 x10 3/uL) 0.02 0.03 Abs Immat Gran (auto) (0.00 - 0.03 x10 3/uL) 0.03 0.04 H Immature Gran % (0.0 - 2.0 %) 0.7 0.5 Nucleated RBC % (0 - 0 %) 0.0 0.0 Nucleated RBCs # (Man) (0.0 - 0.1 x10 3/uL) 0.00 0.00 Laboratory Tests 11/24 11/24 1223 1223 Chemistry Magnesium (1.6 - 2.6 mg/dL) 2.17 B-Natriuretic Peptide (0 - 100 PG/ML) 318.0 H Radiology Data: Recent Impressions: RADIOLOGY - XR CHEST 2 V 11/24 1333 Report Impression - Status: SIGNED Entered: 11/24/2024 1353 IMPRESSION: Cardiomegaly with central congestion and infrahilar opacities suggestive of atelectasis and or dependent edema. Suspect small posterior pleural effusions. Superimposed infectious process should be clinically excluded. Location: Impression By: Janet Winters M.D. Diagnosis, Assessment Plan Consultants: cardiology Free Text DxA P Notes Free Text DxA P Notes: 1. Coronary artery disease: Recently had non-STEMI, and underwent CABG * Echo LVEF 50-54%, G1DD, mild MR * Plavix ASA, BB, statin * S/p CABG (ASH-LAD, SVG-OM1, SVG-OM2, SVG-Diag, SVG-PDA) and ALAA 2. Hypertension * BP stable, continue BB. 3. Diabetes mellitus * A1c 8 * manage per CTS 4. Acute Diastolic CHF, present to admission * LVEF 50-54% * cont GDMT, IV diuresis 5. Pericardial effusion: Moderate to large, mostly around the RV discussed with CT surgery and plan for pericardial tomorrow. at 1003 RPT #:[id number] END OF REPORT [facility] 2024-11-24 16:39:00 [facility] ([facility]) History Physical - Adult REPORT#:[id number] REPORT STATUS: Signed REPORT INITIALIZATION DATE:11/24/24 TIME: 1639 PATIENT: YUNIER PRATT UNIT #: [id number] ROOM/BED: 2207-1 : 74 AGE: 54 SEX: F ATTEND: Antoinette Ross MD ADM AUTHOR: Vanessa Sams APRN REPT SERVICE DT/TIME: 11/24/24 1634 * ALL edits or amendments must be made on the electronic/computer document * Vanessa Sams 11/24/24 1639: History of Present Illness HPI Chief complaint: shortness of breath recent CABG PCP: PCP: No Primary or Family Physician HPI: This is a 54-year-old female with a past medical history of hypertension, diabetes on insulin, and neuropathy who had a recent NSTEMI and had severe MVD. Patient had successful CABG x 5 (ASH to LAD, saphenous vein to diagonal, saphenous vein to first marginal, saphenous vein to second marginal, saphenous vein to PDA), ALAA on 11/09/24. Patient had bilateral pleural effusions drained prior to discharge on 11/21/24 with pigtail chest tube catheters, later in which were removed. Patient denies any alcohol or drug use. He does report half pack a day smoking for the past 40 years. 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 Patient presents to OSH with shortness of breath and reports acute onset of symptoms that began 2-3 days ago. She admits to associated cough productive sputum, chest pain and global swelling. Her CXR revealed a pleural effusion. Her notable lab findings were as follows: H/H 8.5/26.2, AST 105, ALT, 95, alk phos 124, troponin 530.5 and BNP 4063. She denies fever, abdominal pain, nausea /vomiting, melena, hematuria, hematochezia or calf pain. Hx Obtained From Patient History Past medical history: Reports: COPD, Coronary artery disease, Diabetes mellitus, Hypertension, Dyslipidemia. Additional medical history: Neuropathy Past surgical history: Reports: CABG. 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 0304 1457 GABAPENTIN (NEURONTIN) 600 MG PO TID 2 11/08/24 11/24/24 Strength: 300 MG CAP 0307 1457 QUEtiapine XR 200 MG PO BEDTIME 11/24/24 11/24/24 (SEROquel XR) 1458 1458 Strength: 200 MG TAB.SR.24H CLOPIDOGREL (PLAVIX) 75 MG PO DAILY 60 60 11/21/24 11/24/24 Strength: 75 MG TAB 0734 1457 FERROUS SULFATE 325 MG PO DAILY 30 30 11/21/24 11/24/24 (FEOSOL) 0734 1457 Strength: 325 MG (65 MG IRON) TAB AMIODARONE (PACERONE) 200 MG PO DAILY 7 7 11/21/24 11/24/24 Strength: 200 MG TAB 0736 1457 ATORVASTATIN (LIPITOR) 40 MG PO 2100 30 30 11/21/24 11/24/24 Strength: 40 MG TAB 0736 1457 METOPROLOL TARTRATE 12.5 MG PO Q12HR 30 30 11/21/24 11/24/24 (LOPRESSOR) 0736 1457 Strength: 25 MG TAB ASPIRIN 81 MG PO DAILY 30 30 11/21/24 11/24/24 Strength: 81 MG TAB.CHEW [address] 40 MG PO 30 30 11/21/24 11/24/24 (PROTONIX) DAILY@0600 0737 1457 Strength: 40 MG TAB. CYANOCOBALAMIN 500 MCG PO DAILY 30 30 11/21/24 11/24/24 (VITAMIN B-12) 0737 1457 Strength: 500 MCG TAB FUROSEMIDE (LASIX) 40 MG PO DAILY 7 7 11/21/24 11/24/24 Strength: 40 MG TAB 0738 1457 Current Hospital Medications: Blood Formation,Coagulation Sig/Clarke Start time Last Medication Dose Route Stop Time Status Admin Clopidogrel Bisulfate 75 MG DAILY 11/25 899 UNV (Plavix) PO 02/23 859 Ferrous Sulfate 325 MG DAILY 11/25 899 UNV (FERROUS SULFATE) PO 02/23 859 Cardiovascular Drugs Sig/Clarke Start time Last Medication Dose Route Stop Time Status Admin Amiodarone HCl 200 MG DAILY 11/25 899 UNV (CORDARONE) PO 02/23 859 Atorvastatin Calcium 40 MG 2100 11/24 2099 UNV (LIPITOR) PO 12/24 2058 Metoprolol Tartrate 12.5 MG Q12HR 11/24 2099 UNV (LOPRESSOR) PO 02/22 2059 Central Nervous System Agents Sig/Clarke Start time Last Medication Dose Route Stop Time Status Admin Aspirin 81 MG DAILY 11/25 0900 AC (ASPIRIN) PO 02/23 0859 Duloxetine HCl 20 MG DAILY 11/25 09 UNV (CYMBALTA) PO 02/23 859 Gabapentin 600 MG TID 11/24 2099 UNV (NEURONTIN) PO 02/22 2059 Hydrocodone Bitart/ 1 TAB Q6H PRN PRN 11/24 1645 UNV Acetaminophen PO 11/29 1644 (NORCO 5/325) Magnesium Sulfate 50 ML ASDIR PRN 11/24 1645 UNV (MAGNESIUM SULFATE IV 02/22 1644 2GM/SWFI 50ML) Acetaminophen 650 MG Q4H PRN PRN 11/24 1630 AC (TYLENOL) PO 02/22 1629 Acetaminophen 650 MG Q4H PRN PRN 11/24 1630 UNV (TYLENOL) RECTAL 02/22 1629 Fentanyl Citrate 25 MCG X1ED STA 11/24 1254 DC 11/24 (SUBLIMAZE) IV 11/24 1255 1303 Electrolytic, Caloric, And Prosper Sig/Clarke Start time Last Medication Dose Route Stop Time Status Admin Furosemide 20 MG BID 9A 5P 11/24 1700 UNV (LASIX 20MG INJ) IV 02/22 1659 Potassium Chloride 20 MEQ ASDIR PRN 11/24 1645 UNV (POTASSIUM CHLORIDE PO 02/22 1644 20MEQ TAB.ER) Potassium Chloride 40 MEQ ASDIR PRN 11/24 1645 UNV (POTASSIUM CHLORIDE PO 02/22 1644 20MEQ TAB.ER) Gastrointestinal Drugs Sig/Clarke Start time Last Medication Dose Route Stop Time Status Admin Pantoprazole 40 MG DAILY@0600 11/25 0600 UNV (PROTONIX) PO 02/23 0559 Al Hydrox/Mg Hydrox/ 30 ML Q4H PRN PRN 11/24 1630 UNV Simethicone PO 02/22 1629 (MYLANTA) Docusate Sodium 100 MG BID PRN PRN 11/24 1630 AC (COLACE) PO 02/22 1629 Ondansetron HCl 4 MG Q4H PRN PRN 11/24 1630 UNV (ZOFRAN) IV 02/22 1629 Vitamins Sig/Clarke Start time Last Medication Dose Route Stop Time Status Admin Cyanocobalamin 500 MCG DAILY 11/25 0900 UNV (Vitamin B-12 500 PO 02/23 0859 mcg tab) Allergies: Coded Allergies: heparin (BLOOD CLOT 11/24/24) HIT (+) Review of Systems Constitutional: Reports: fatigue. Denies: chills, fever, generalized weakness. Skin: Denies: abrasion, bruising, contusion. Allergy/Immun: Denies: allergic reaction, anaphylaxis, itching. Respiratory: Reports: HARTMAN (dyspnea on exertion). Cardiovascular: Denies: chest pain. GI: Denies: abdominal pain, nausea, vomiting. : Denies: dysuria, flank pain. Heme: Denies: adenopathy, bleeding, bruising. Endocrine: Denies: cold intolerance, heat intolerance, polydipsia. Neuro: Denies: confusion, dizziness, seizure, syncope. All systems rev neg: except as marked Physical Exam VS/I O Vital Signs: Date Time Temp Pulse Resp B/P B/P Pulse O2 O2 Flow FiO2 Mean Ox Delivery Rate 11/24 1529 99.5 70 16 131/75 93.9 94 / 1351 113/74 04/ 1246 14 /05 1245 60 100 / 1212 98.6 62 20 113/74 93 Room air PATIENT WEIGHT: Weight (lb): Weight (oz): Weight (kg): 75.000 General appearance: alert, awake, oriented Head/Eyes: atraumatic ENT: moist mucosal membranes Neck: non-tender Cardiovascular: abnormal S1/S2 Respiratory: decreased breath sounds, no distress, symmetric expansion Abdomen/GI: active bowel sounds, soft Genitourinary: no flank pain Extremities: moves all Neuro/REWRITER: alert, oriented X 3 Skin: (sternalincision CDI) Psychiatry: normal affect Results Radiology data: Recent Impressions: RADIOLOGY - XR CHEST 2 V 11/24 1333 Report Impression - Status: SIGNED Entered: 11/24/2024 1353 IMPRESSION: Cardiomegaly with central congestion and infrahilar opacities suggestive of atelectasis and or dependent edema. Suspect small posterior pleural effusions. Superimposed infectious process should be clinically excluded. Location: Impression By: Janet Winters M.D. Results: labs reviewed, vital signs reviewed, vital signs stable, rhythm personally rev'd, x-ray personally reviewed, current med profile rev'd Treatment Prophylaxis Treatment Prophylaxis CVC/PICC documentation: The data below has been imported from nursing documentation. Any exceptions have been noted below under Provider comments. CVC/PICC insertion date/time: Provider comments on imported nursing data: [] Diagnosis, Assessment Plan Problem List/A P: 1. Pleural effusion 2. CAD (coronary artery disease) 3. DM (diabetes mellitus) 4. HTN (hypertension) 5. S/P CABG x 5 Orders: Procedure Date/time Status CBC W/AUTO DIFF 11/29 0500 Active BASIC METABOLIC PANEL 11/29 0500 Active CBC W/AUTO DIFF 11/28 0500 Active BASIC METABOLIC PANEL 11/28 0500 Active CBC W/AUTO DIFF 11/27 0500 Active BASIC METABOLIC PANEL 11/27 0500 Active CBC W/AUTO DIFF 11/26 0500 Active BASIC METABOLIC PANEL 11/26 0500 Active XR CHEST SPECIAL VIEWS 11/25 0500 Active COMPREHENSIVE METABOLIC PANEL 11/25 0500 Active CBC W/AUTO DIFF 11/25 0500 Active BASIC METABOLIC PANEL 11/25 0500 Active REGULAR DIET 11/24 D Active Oral Potassium NSG Orders 11/24 1637 Active PHOSPHATE NSG ORDERS 11/24 1637 Active MAGNESIUM NSG ORDERS 11/24 1637 Active CALCIUM NSG ORDERS 11/24 1637 Active _RT: INCENTIVE SPIROMETER 11/24 1635 Active Incentive Spirometry: Nursing 11/24 1635 Active Weigh patient daily 11/24 1633 Active Strict I O 11/24 1633 Active ADULT ECHO COMPLETE 11/24 1633 Active PHYSICIAN CONSULT 11/24 1633 Active Sequential Compression Device 11/24 1632 Active MRSA Protocol 11/24 1632 Active IV Access 11/24 1632 Active Intake Output 11/24 1632 Active Fall Precautions 11/24 1632 Active VTE Education 11/24 1632 Active VTE Prophylaxis Status 11/24 1632 Active PHYSICAL THERAPIST CONSULT 11/24 163 Active Occupational Therapist Consult 11/24 163 Active Consultants: cardiology Plan discussed with: patient, collaborating MD, nurse Code Status/Resusc. Discussion Resuscitation discussion: Discussed with: patient Code status: full code Free Text DxA P Notes Free Text DxA P Notes: This is a 54-year-old female with a past medical history of hypertension, diabetes on insulin, and neuropathy who had a recent NSTEMI and had severe MVD. Patient had successful CABG x 5 (ASH to LAD, saphenous vein to diagonal, saphenous vein to first marginal, saphenous vein to second marginal, saphenous vein to PDA), ALAA on 11/09/24. Patient had bilateral pleural effusions drained prior to discharge on 11/21/24 with pigtail chest tube catheters, later in which were removed. Patient denies any alcohol or drug use. He does report half pack a day smoking for the past 40 years. 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 Patient presents to OSH with shortness of breath and reports acute onset of symptoms that began 2-3 days ago. She admits to associated cough productive sputum, chest pain and global swelling. Her CXR revealed a pleural effusion. Her notable lab findings were as follows: H/H 8.5/26.2, AST 105, ALT, 95, alk phos 124, troponin 530.5 and BNP 4063. She denies fever, abdominal pain, nausea /vomiting, melena, hematuria, hematochezia or calf pain. Assessment/plan: 1. Shortness of breath 2. Pleural effusion 3. Status post CABG 4. Hypertension 5. Neuropathy 6. Type 2 diabetes Admit to observation unit Monitor on telemetry for arrhythmia Labs reviewed, replace electrolytes as needed Diurese patient with IV Lasix Echocardiogram Encourage incentive spirometer use PT/OT Resume home medications and adjust as needed SCDs for DVT prophylaxis Cardiology consulted Further recommendations based on clinical course Patient seen and examined. Discussed plan of care with patient, all patient's questions have been answered MDM done by Dr. Little [facility] Current Medications Current medication review: I attest that the foregoing medication list in the medical record is true, accurate, and complete to the best of my knowledge. MARY MOSS 11/26/24 1259: Attestations Physician Attestation Agree w/findings plan: Agree with findings and evaluation by CVNP. Treatment plans made. I personally provided 45 minutes of total time on direct and indirect patient care activities on the date of this encounter, exclusive of time spent on other separately reportable services. at 1656 at 1315 RPT #:[id number] END OF REPORT [facility] 2024-11-24 13:13:00 [facility] ([facility]) EMERGENCY PROVIDER REPORT REPORT#:[id number] REPORT STATUS: Signed DATE:11/24/24 TIME: 1313 PATIENT: YUNIER PRATT UNIT #: [id number] ROOM/BED: [place] [address] : [birth year] AGE: 54 SEX:F PCP PHYS: No Primary or Family Physician SERVICE AUTHOR: Daisy Hernadez MD REP SRV REP SRV TM: 1313 * ALL edits or amendments must be made on the electronic/computer document * HPI-Dyspnea/Wheezing General Confirmed Patient Yes Initial Greet Date/Time 11/24/24 1208 PCP Marie Miner - PMDVandana - CT surg, [facility] Presentation Chief Complaint Shortness of breath )( Sudden in Onset? Yes Free Text HPI Notes Free Text HPI Notes 54-year-old female with PMH CAD (status post CABG 2 weeks ago here in this hospital), DM, HLD, CAD (status post stent x 5) and neuropathy presents with shortness of breath. The patient reports acute onset of symptoms that began 2-3 days ago. She admits to associated cough productive of taupe colored sputum, chest pain and global swelling. She was initially seen in the [facility] ED for her complaint, and underwent lab testing and imaging studies. Her CXR revealed a pleural effusion. Her notable lab findings were as follows: H/H 8.5/26.2, AST 105, ALT, 95, alk phos 124, troponin 530.5 and BNP 4063. She was transferred to this hospital for continuity of care. The patient denies fever, abdominal pain, nausea/vomiting, melena, hematuria, hematochezia or calf pain. Review of Systems ROS Statements All systems rev neg except as marked. Past Medical History - Adult Stated Complaint PLEURAL EFFUSION, CABG 2 WEEKS AGO Allergies Coded Allergies: heparin (BLOOD CLOT 11/24/24) HIT (+) Home Medications Active Scripts CLOPIDOGREL (PLAVIX) 75 MG PO DAILY 60 Days #60 TAB Prov: 11/21/24 FERROUS SULFATE (FEOSOL) 325 MG PO DAILY 30 Days #30 TAB Prov: 11/21/24 AMIODARONE (PACERONE) 200 MG PO DAILY 7 Days #7 TAB Prov: 11/21/24 ATORVASTATIN (LIPITOR) 40 MG PO 2100 30 Days #30 TAB Prov: 11/21/24 METOPROLOL TARTRATE (LOPRESSOR) 12.5 MG PO Q12HR 30 Days #30 TAB Prov: 11/21/24 ASPIRIN 81 MG PO DAILY 30 Days #30 TAB Prov: 11/21/[address] (PROTONIX) 40 MG PO DAILY@0600 30 Days #30 TAB Prov: 11/21/24 CYANOCOBALAMIN (VITAMIN B-12) 500 MCG PO DAILY 30 Days #30 TAB Prov: 11/21/24 FUROSEMIDE (LASIX) 40 MG PO DAILY 7 Days #7 TABS Prov: 11/21/[address] (CYMBALTA) 20 MG PO DAILY GABAPENTIN (NEURONTIN) 600 MG PO TID GABAPENTIN (NEURONTIN) 600 MG PO TID #2 QUEtiapine XR (SEROquel XR) 200 MG PO BEDTIME Discontinued Reported Medications FUROSEMIDE (LASIX) 40 MG IV BID NICOTINE (NICODERM 21 MG) 21 MG TRANSDERM DAILY Calculated Suicide Risk (nurs) No risk Past Medical History: Reports: COPD, Coronary artery disease, Diabetes mellitus, Hypertension, Dyslipidemia. 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) Drug Use Denies recreational drugs Smoking status for patients 13 years old or older: Former Smoker (quit 10/2024) Physical Exam Vital Signs Vital Signs First Documented: Result Date Time Pulse Ox 93 11/24 1212 B/P 113/74 11/24 121 O2 Delivery Room air 11/25 1211 Temp 37.0 11/24 121 Pulse 62 11/24 1212 Resp 20 11/24 1212 Last Documented: Result Date Time B/P 113/74 11/24 1351 Resp 14 11/24 1246 Pulse Ox 100 11/24 1245 Pulse 60 11/24 1245 O2 Delivery Room air 11/24 1212 Temp 37.0 11/24 1212 Review of Vital Signs Reviewed Focused PE General/Const General/Const Awake, Alert, No acute distress Text/Dict Notes Afebrile, lying comfortably on stretcher in NAD, nontoxic but frail and globally weak appearing MS Neck Neck Supple Resp/Chest Respiratory/Chest No respiratory distress, No wheezing Text/Dict Notes Bibasilar crackles (R > L) Cardiovascular Cardiovascular Heart rate NL, Regular rhythm, Heart sounds NL Abdomen/GI Abdomen/GI Soft, Non-tender, No distention MS Back Back No midline vertebral tend, No CVA tenderness MS Lower Extrem Text/Dict Notes There is pitting edema of the LEs BL Skin Skin Warm, Dry Neurologic Neurologic Oriented X3, Speech NL Interpretation Diagnostics Lab Results Interpretation Results Laboratory Tests 11/24/24 1223: [Embedded Image Not Available] Laboratory Tests: 11/24 11/24 1223 1223 Chemistry Sodium (134 - 147 mEq/L) 130 L Potassium (3.4 - 5.0 mEq/L) 5.0 Chloride (100 - 108 mEq/L) 97 L Carbon Dioxide (21 - 33 mEq/l) 26 Anion Gap (0 - 20) 12 BUN (7 - 25 mg/dL) 24 Creatinine (0.6 - 1.3 mg/dL) 1.0 Glomerular Filtr Rate (90 - 95) 67.8 L Glucose (77 - 141 mg/dL) 158 H Calcium (8.0 - 10.5 mg/dL) 8.6 Magnesium (1.6 - 2.6 mg/dL) 2.17 Total Bilirubin (0.0 - 1.0 mg/dL) 0.30 AST (8 - 34 IUnit/L) 107 H ALT (10 - 49 IUnit/L) 91 H Total Alk Phosphatase (20 - 125 IUnit/L) 122 B-Natriuretic Peptide (0 - 100 PG/ML) 318.0 H Total Protein (5.7 - 8.2 g/dL) 6.7 Albumin (3.4 - 5.0 g/dL) 2.90 L Coagulation INR (0.8 - 1.2) 1.2 PT Patient/Control Mix (9.3 - 12.9 SECONDS) 13.7 H Hematology WBC (4.5 - 11.0 x10 3/uL) 7.8 RBC (3.54 - 5.02 x10 6/uL) 3.04 L Hgb (11.0 - 15.0 g/dL) 7.7 L Hct (33.0 - 45.0 %) 25.7 L MCV (81.0 - 99.0 fL) 84.5 MCH (27.0 - 33.0 pg) 25.3 L MCHC (33.0 - 37.0 g/dL) 30.0 L RDW (11.5 - 14.5 %) 19.8 H Plt Count (150 - 400 x10 3/uL) 201 MPV (7.0 - 9.0 fL) 11.7 H Neut % (Auto) (56.0 - 77.0 %) 74.8 Lymph % (Auto) (14.0 - 32.0 %) 11.8 L [place] % (Auto) (4.8 - 9.0 %) 9.6 H Eos % (Auto) (0.3 - 3.7 %) 2.9 Baso % (Auto) (0.0 - 2.0 %) 0.4 Neut # (Auto) (2.0 - 7.6 x10 3/uL) 5.85 Lymph # (Auto) (1.0 - 3.8 x10 3/uL) 0.92 L [place] # (Auto) (0.1 - 0.8 x10 3/uL) 0.75 Eos # (Auto) (0.0 - 0.2 x10 3/uL) 0.23 H Baso # (Auto) (0.0 - 0.2 x10 3/uL) 0.03 Abs Immat Gran (auto) (0.00 - 0.03 x10 3/uL) 0.04 H Immature Gran % (0.0 - 2.0 %) 0.5 Nucleated RBC % (0 - 0 %) 0.0 Nucleated RBCs # (Man) (0.0 - 0.1 x10 3/uL) 0.00 Recent Impressions: RADIOLOGY - XR CHEST 2 V 11/24 1333 Report Impression - Status: SIGNED Entered: 11/24/2024 1353 IMPRESSION: Cardiomegaly with central congestion and infrahilar opacities suggestive of atelectasis and or dependent edema. Suspect small posterior pleural effusions. Superimposed infectious process should be clinically excluded. Location: H2 Impression By: Janet Winters M.D. Point of Care Testing Pulse Oximetry Pulse Ox % 93 On: Room air Interpretation Interpreted by me, Mild desaturation Time 1212 ECG #1 Interpretation Text/Dict Note Date: 11/24/2024 Time: 1211 Independently reviewed and interpreted by me NSR, rate 62, nl axis, TWI in the inferior leads, PRWP, no STEMI Free Text I D Notes Free Text I D Notes Laboratory radiographic studies (from both this facility and the outside facility) independently reviewed and interpreted in the medical decision-making by me. RADIOLOGY - XR CHEST 2 V 11/24 1333 Report Impression - Status: SIGNED Entered: 11/24/2024 1353 IMPRESSION: Cardiomegaly with central congestion and infrahilar opacities suggestive of atelectasis and or dependent edema. Suspect small posterior pleural effusions. Superimposed infectious process should be clinically excluded. Location: H2 Impression By: Janet Winters M.D. Re-Evaluation MDM Free Text MDM Notes Free Text MDM Notes It should be noted that the patient received IV narcotics during this ED visit. )( Re-Evaluation/Progress #1 Text/Dict Note The patient is aware of the plan of care. Time of Re-Eval 1400 ED Course Medication(s) Ordered Medication(s) Ordered: Central Nervous System Agents Sig/Clarke Start time Last Medication Dose Route Stop Time Status Admin Fentanyl Citrate 25 MCG X1ED STA 11/24 1254 DC 11/24 IV 11/24 1255 1303 Patient Discharge Departure Vital Signs/Condition Vital Signs First Documented: Result Date Time Pulse Ox 93 11/24 1212 B/P 113/74 11/24 1212 O2 Delivery Room air 11/24 1212 Temp 37.0 11/24 1212 Pulse 62 11/24 1212 Resp 20 11/24 1212 Last Documented: Result Date Time B/P 113/74 11/24 1351 Resp 14 11/24 1246 Pulse Ox 100 11/24 1245 Pulse 60 11/24 1245 O2 Delivery Room air 11/24 1212 Temp 37.0 11/24 1212 All vital signs available at the time of this entry have been reviewed. Condition Stable Clinical Impression Clinical Impression Primary Impression: Decompensated heart failure Secondary Impressions: Pleural effusion, Status post coronary artery bypass graft Disposition Decision Hospitalize Hosp Physician Name Antoinette Ross MD )( Accepts Hospitalization Yes )( Reason for Hospitalization See above )( Accepted Time 1400 )( Accepted Date 11/24/24 Call Information will see patient, agrees with plan Discharge/Care Plan Counseled Regarding Diagnosis, Lab results, Imaging studies, Need for admission at 0708 RPT #:[id number] END OF REPORT [facility] 2024-11-23 14:23:00 [phone] [place] [address] PATIENT NAME: YUNIER PRATT ADMIT DATE: 11/08/24 ACCOUNT NO: [id number] ROOM NO: DCCVN1 AGE: 54 REPORT TYPE: eECHOCARDIOGRAM REPORT SEX: F ADMITTING PHYSICIAN:Angela Aceves DO ATTENDING PHYSICIAN:Flynn Becerra MD *[place] [address] Limited Transthoracic Echocardiogram Patient: Yunier Pratt Study Date: 11/20/2024 BP: 118 / 69 URN: [id number] Location: : 1970 Age: 54 Gender: F Height: 66 in / 167.6 cm Weight: 166 lb / 75.3 kg BMI/BSA: 26.8 kg/m 2 / 1.89 m 2 *Ordering Physician: * Talita Monzon *Interpreting Physician: * Sharon Lindquist MD *Stretcher And Drier: * Isabela Nguyen Indications: S/P CABG. Study [...] at 1423 PATIENT NAME: YUNIER PRATT [facility] 2024-11-23 01:49:00 [phone] [place] [address] PATIENT NAME: YUNIER PRATT ADMIT DATE: 11/08/24 ACCOUNT NO: [id number] ROOM NO: G.DCCVN1 AGE: 54 REPORT TYPE: 360 - QUERY RESPONSE DOCUMENT SEX: F ADMITTING PHYSICIAN:Angela Aceves DO ATTENDING PHYSICIAN:Flynn Becerra MD Provider Query QUERY TEXT: Condition Nutritional Status 360MD Query related questions should be directed to:[facility] Coding Query Helpline Based on your clinical [...] at 0149 PATIENT NAME: YUNIER PRATT [facility] 2024-11-23 01:49:00 [phone] [place] [address] PATIENT NAME: YUNIER PRATT ADMIT DATE: 11/08/24 ACCOUNT NO: [id number] ROOM NO: G.DCCVN1 AGE: 54 REPORT TYPE: 360 - QUERY RESPONSE DOCUMENT SEX: F ADMITTING PHYSICIAN:Angela Aceves DO ATTENDING PHYSICIAN:Flynn Becerra MD Provider Query QUERY TEXT: Condition General 360MD Query related questions should be directed to:[facility] Coding Query Helpline [Based on your clinical [...] at 0149 PATIENT NAME: YUNIER PRATT [facility] 2024-11-21 16:24:00 [facility] REPORT#:[id number] REPORT STATUS: Signed REPORT INITIALIZATION DATE:11/21/24 TIME: 1623 PATIENT: YUNIER PRATT UNIT #: [id number] ROOM/BED: DCCVN1-1 : 74 AGE: 54 SEX: F ATTEND: [...] Flow FiO2 Mean Ox Delivery Rate 11/21 0911 100 Room air 11/21 0725 74 38 112/59 79 100 11/21 0725 98.4 74 20 112/59 0.0 100 Room air 11/21 0547 98.4 76 14 148/75 0.0 100 Room air 11/21 0545 78 25 148/75 105 100 11/20 2354 69 18 100/59 75 99 11/20 2354 97.7 69 12 100/59 0.0 99 Room air 11/20 2153 99 Room air 11/20 2037 86 22 [...] no rebound Extremities: moves all, no edema Neuro/REWRITER: alert, oriented X 3, CNII-XII intact, no [...] evaluation of SOB and chest pain at [facility]. Patient was found to have NSTEMI. 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 Patient was transported to [facility] for CABG evaluation. Assessment and Plan CRONELL pleural effusion: -As seen on US -s/p [...] DC acording to CTS. at 1625 RPT #:[id number] END OF REPORT [facility] 2024-11-21 08:27:00 [facility] ([facility]) Pain Management Progress Note REPORT#:[id number] REPORT STATUS: Signed REPORT INITIALIZATION DATE:11/21/24 TIME: 826 PATIENT: YUNIER PRATT UNIT #: [id number] [facility] AGE: 54 SEX: F ATTEND: Flynn Becerra MD ADM AUTHOR: Alejandro Cabrera PERSONAL INJURY SPECIALIST REPT SERVICE DT/TIME: 11/21/24826 * ALL edits [...] 0725 B/P 112/59 11/21 0725 B/P Mean 79 11/21 07 Pulse 74 11/21 724 Resp 38 11/21 724 O2 Delivery Room air 11/21 724 Temp 98.4 11/21 724 FiO2 21 11/20 0141 O2 Flow Rate [...] Glargine (Semglee) 20 UNIT BID SUBQ Ipratropium Basom (ATROVENT) 500 MCG RTQ2H PRN PRN INH [...] ASDIR PRN IV Fluticasone Propionate (Flonase Nasal [place]) 2 SPRAY DAILY NASAL (CKD) Physical Exam General appearance: alert, awake, oriented, no acute distress Head/eyes: atraumatic, EOMI, normocephalic, PERRLA ENT: normal nose, moist mucosal membranes Neck: no JVD, supple/no meningismus Cardiovascular: regular rate rhythm, normal heart sounds, dressing over sternum Respiratory: aerating well, symmetric expansion Abdomen: soft, non-tender, no distention Extremities: moves all, no edema, no clubbing, no cyanosis Neuro/REWRITER: alert, oriented X 3, normal speech, CNII-XII [...] prior study. Impression By: MitchABNba Gonzalez D.O. Diagnosis, Assessment Plan Free text [...] wall daily 12h on 12h off (11/16) -[place] 7.5/325 mg 2 tabs PO q4h PRN [...] 17.2 mg at bedtime -Dulcolax 10 mg AR daily PRN -Manageable Disposition: Okay for outpatient follow up Rx: sent electronically 11/19 [place] 7.5/325 mg PO q6h PRN #20, Narcan, [...] Keith who agrees with plan of care. [place] [employer] records reviewed: Total Prescriptions 6 Total Private Pay 0 Total Prescribers 4 Total Pharmacies 2 2024 2024 1 HYDROCODONE-ACETAMIN 5-325 MG 20.00 3 Pa Tho [id number] [facility] (1910) 0 33.33 MME Comm Ins [place] 2024 2024 1 TRAMADOL-ACETAMINOPHN 37.5-325 20.00 3 Pa Tho [id number] [facility] (5) 0 50.00 MME Comm Ins [place] 06/08/2023 06/08/2023 1 ACETAMINOPHEN-COD #3 TABLET 10.00 10 Ma Gopi [id number] [facility] ( 6925) 0 4.50 MME Comm Ins [place] [facility] (1910) [address] [place]vonne Stewart [place] [address] [facility] (3788) [address] [facility] [address] at 1404 RPT #:[id number] END OF REPORT [facility] 2024-11-21 07:42:00 [facility] ([facility]) Discharge Summary REPORT#:[id number] REPORT STATUS: Signed REPORT INITIALIZATION DATE:11/21/24 TIME: 741 PATIENT: YUNIER PRATT UNIT #: [id number] ROOM/BED: DCCVN1-1 : 74 AGE: 54 SEX: F ATTEND: [...] hypertension, diabetes on insulin who presented to [facility] with complaints of chest pain. She was ruled in for NSTEMI on her blood work. 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 Patient was transferred to [facility] for further evaluation and workup of multivessel [...] multidisciplinary team. The patient's questions were answered. 3/26/25 POD 5 AAOx3 Pending updated labs, replace [...] Musculoskeletal: full range of motion, normal inspection Neuro/REWRITER: alert, oriented X 3 Skin: dry, intact, [...] Impression By: [email or web address] - George Gonzalez D.O. Discharge Instructions PCP PCP: PCP: [...] up timeframe: In 1-2 weeks at 0747 at 0847 RPT #:[id number] END OF REPORT [facility] 2024-11-20 23:34:00 [facility] ([facility]) Cardiology Progress Note REPORT#:[id number] REPORT STATUS: Signed REPORT INITIALIZATION DATE:11/20/24 TIME: 2333 PATIENT: YUNIER PRATT UNIT #: [id number] ROOM/BED: [place] [address] : 72 AGE: 54 SEX: F ATTEND: Flynn Becerra MD ADM AUTHOR: Sharon Lindquist MD REPT SERVICE DT/TIME: 11/20/242333 * ALL edits or amendments must be [...] Flow FiO2 Mean Ox Delivery Rate 11/20 2153 99 Room air 11/20 1937 99.3 85 14 118/69 85.2 100 Room air 11/20 1648 97.9 78 16 102/65 77.2 99 04/ 1154 98.1 68 20 108/62 0.0 100 11/20 0920 96 Room air 11/20 0828 98.1 66 16 101/56 0.0 100 11/20 0444 97.7 67 15 99/58 0.0 96 11/20 0443 67 16 99/58 76 98 04/ 0141 97 Room air 21 11/20 0049 98.1 75 17 140/67 0.0 97 / 0047 75 22 140/67 96 100 PATIENT [...] Glargine (Semglee) 20 UNIT BID SUBQ Ipratropium Basom (ATROVENT) 500 MCG RTQ2H PRN PRN INH [...] ASDIR PRN IV Fluticasone Propionate (Flonase Nasal [place]) 2 SPRAY DAILY NASAL (CKD) Physical Exam [...] LE assessment: no edema Musculoskeletal: normal inspection Neuro/REWRITER: alert, oriented X 3, normal speech Skin: [...] DM, neuropathy, tobacco abuse who presented at [facility] with shortness of breath and chest pain. She was ruled for NSTEMI, had LHC which revealed multivessed CAD. She is transferred to [facility] for CABG evaluation. 1. NSTEMI/Multivessel CAD * [...] 2 units PRBC 11/14 at 2336 RPT #:[id number] END OF REPORT [facility] 2024-11-20 23:23:00 [facility] ([facility]) Tereso/Oncology Progress Note REPORT#:[id number] REPORT STATUS: Signed REPORT INITIALIZATION DATE:11/20/24 TIME: 2322 PATIENT: YUNIER PRATT UNIT #: [id number] ROOM/BED: [place] [address] : 72 AGE: 54 SEX: F ATTEND: Flynn Becerra MD ADM AUTHOR: Huey Michelle MD REPT SERVICE DT/TIME: 11/20/242322 * ALL edits or amendments must be made on the electronic/computer document * Subjective Chief Complaint: pt doing ok. s/p 2 u prbc HGB at 7.8 positive DCELAN ab ELISAA and RACHELLE pending. fu on [...] Temp 37.4 11/20 1936 Pulse 85 11/20 193 Resp 14 11/20 1936 FiO2 21 11/20 0141 O2 Flow Rate 0 11/11 1601 HEENT: pupils reactive to light Cardiovascular: regular rate and rhythm, normal S1/S2 Respiratory: symmetric expansion Abdomen: non-tender, soft Extremities: edema, moves all, normal temperature, no edema Neuro/REWRITER: alert, oriented X 3, no motor deficits [...] Glargine (Semglee) 20 UNIT BID SUBQ Ipratropium Basom (ATROVENT) 500 MCG RTQ2H PRN PRN INH [...] ASDIR PRN IV Fluticasone Propionate (Flonase Nasal [place]) 2 SPRAY DAILY NASAL (CKD) Results Findings/Data: [...] post surgery acute on chronic Per MICA ([place] society of Hematology) guidelines of diagnosis and [...] recieve 2 u prbc on 11/14 at 6417 RPT #:[id number] END OF REPORT [facility] 2024-11-20 10:28:00 [facility] Cardiothoracic Surgery Prog REPORT#:[id number] REPORT STATUS: Signed REPORT INITIALIZATION DATE:11/20/24 TIME: 1028 PATIENT: YUNIER PRATT UNIT #: [id number] [facility] AGE: 54 SEX: F ATTEND: [...] Result Date Time Pulse Ox 96 11/20 09 O2 Delivery Room air 11/21 919 B/P [...] RECOMMEND GLUCERNA TID WITH MEALS. Dietitian name: Eevlin Perez, DIET Assessment completed: 11/16/24 Physical Exam General appearance: alert, awake, oriented Wound/incision: Location: sternum Site condition: incision intact, no changes in wound, no drainage HEENT: mucosal membranes moist, pupils reactive to light Neck: full range of motion, non-tender Cardiovascular: regular rate rhythm Respiratory: symmetric expansion, no distress Abdomen: soft, non-tender Extremities: dry, moves all Neuro/REWRITER: alert, oriented X 3 Skin: dry, intact [...] Glargine (Semglee) 20 UNIT BID SUBQ Ipratropium Basom (ATROVENT) 500 MCG RTQ2H PRN PRN INH [...] ASDIR PRN IV Fluticasone Propionate (Flonase Nasal [place]) 2 SPRAY DAILY NASAL (CKD) Results Findings/Data: [...] CHF with effusions noted. Impression By: [email or web address] Ange Galindo M.D. RADIOLOGY - XR CHEST [...] hypertension, diabetes on insulin who presented to [facility] with complaints of chest pain. She was ruled in for NSTEMI on her blood work. 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 Patient was transferred to [facility] for further evaluation and workup of multivessel [...] MD, nurse, interdisc care team at 1035 at 0839 RPT #:[id number] END OF REPORT [facility] 2024-11-20 10:26:00 [facility] ([facility]) Pain Management Progress Note REPORT#:[id number] REPORT STATUS: Signed REPORT INITIALIZATION DATE:11/20/24 TIME: 1026 PATIENT: YUNIER PRATT UNIT #: [id number] ROOM/BED: [place] [address] : 72 AGE: 54 SEX: F ATTEND: Flynn Becerra MD ADM AUTHOR: Alejandro Cabrera PERSONAL INJURY SPECIALIST REPT SERVICE DT/TIME: 11/20/24 1026 * ALL [...] 827 Temp 98.1 11/21 827 Pulse 66 11/20 08 Resp 16 11/21 827 FiO2 21 11/20 0141 O2 Flow Rate 0 11/11 1601 24 hour I O ending at 0700: 11/20 0711/19 1900 Intake Total 300 Output Total 560 [...] Glargine (Semglee) 20 UNIT BID SUBQ Ipratropium Basom (ATROVENT) 500 MCG RTQ2H PRN PRN INH [...] ASDIR PRN IV Fluticasone Propionate (Flonase Nasal [place]) 2 SPRAY DAILY NASAL (CKD) Physical Exam [...] all, no edema, no clubbing, no cyanosis Neuro/REWRITER: alert, oriented X 3, normal speech, CNII-XII [...] wall daily 12h on 12h off (11/16) -[place] 7.5/325 mg 2 tabs PO q4h PRN [...] 17.2 mg at bedtime -Dulcolax 10 mg AR daily PRN -Manageable Disposition: Okay for outpatient follow up Rx: sent electronically 11/19 [place] 7.5/325 mg PO q6h PRN #20, Narcan, [...] Keith who agrees with plan of care. [place] [employer] records reviewed: Total Prescriptions 6 Total Private Pay 0 Total Prescribers 4 Total Pharmacies 2 2024 2024 1 HYDROCODONE-ACETAMIN 5-325 MG 20.00 3 Pa Tho [id number] Wal (1910) 0 33.33 MME Comm Ins [place] 2024 2024 1 TRAMADOL-ACETAMINOPHN 37.5-325 20.00 3 Pa Tho 227741 [facility] (5115) 0 50.00 MME Comm Ins [place] 06/08/2023 06/08/2023 1 ACETAMINOPHEN-COD #3 TABLET 10.00 10 Ma Gopi 974102 [facility] ( 2667) 0 4.50 MME Comm Ins [place] [facility] (1910) [address] [facility] [address] [facility] (3284) [address] [facility] [address] at 1128 RPT #:[id number] END OF REPORT [facility] 2024-11-20 08:34:00 [facility] ([facility]) Hospitalist Progress Note REPORT#:[id number] REPORT STATUS: Signed REPORT INITIALIZATION DATE:11/20/24 TIME: 833 PATIENT: YUNIER PRATT UNIT #: [id number] ROOM/BED: [place] [address] : 72 AGE: 54 SEX: F ATTEND: Flynn Becerra MD ADM AUTHOR: Dayanara Man MD R1 REPT SERVICE DT/TIME: 11/20/24 08 * ALL edits or amendments must be made on the electronic/computer document * Dayanara Man 11/20/2434: Subjective Chief complaint: s/p chest tube insertion, [...] 11/19 2144 84 29 128/68 93 98 11/20 1911 89 35 128/62 89 96 11/20 1911 38.7 91 16 128/62 0.0 96 24 [...] Glargine (Semglee) 20 UNIT BID SUBQ Ipratropium Basom (ATROVENT) 500 MCG RTQ2H PRN PRN INH [...] ASDIR PRN IV Fluticasone Propionate (Flonase Nasal [place]) 2 SPRAY DAILY NASAL (CKD) Physical Exam Head/Eyes: atraumatic, normocephalic ENT: moist mucosal membranes, normal dentition Neck: full range of motion, supple/no meningismus Cardiovascular: normal heart sounds, regular rate rhythm, no murmur Respiratory: aerating well, clear to auscultation, symmetric expansion, no distress Abdomen: non-tender, soft, no distention, no guarding, no rebound Extremities: moves all, no edema Neuro/REWRITER: alert, oriented X 3, CNII-XII intact, no [...] compared to prior study. Impression By: [email or web address] - George Gonzalez D.O. Diagnosis, Assessment Plan Hospital course [...] evaluation of SOB and chest pain at [facility]. Patient was found to have NSTEMI. 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 Patient was transported to [facility] for CABG evaluation. Assessment and Plan CORNELL [...] and plan. at 1739 at 2132 RPT #:[id number] END OF REPORT [facility] 2024-11-20 08:05:00 [facility] ([facility]) Int. Radiology Progress Note REPORT#:[id number] REPORT STATUS: Signed REPORT INITIALIZATION DATE:11/20/24 TIME: 804 PATIENT: YUNIER PRATT UNIT #: [id number] ROOM/BED: [place] [address] : 72 AGE: 54 SEX: F ATTEND: [...] Result Date Time Pulse Ox 96 11/21 443 B/P 99/58 11/21 443 B/P Mean 0.0 11/21 443 Temp 36.5 11/21 443 Pulse 67 11/21 443 Resp 15 11/21 443 FiO2 21 11/20 014 O2 Delivery Room air 11/20 140 O2 Flow Rate 0 11/11 1601 24 hour I O ending at 0700: 11/20 0711/19 1900 Intake Total 300 Output Total 560 [...] Glargine (Semglee) 20 UNIT BID SUBQ Ipratropium Basom (ATROVENT) 500 MCG RTQ2H PRN PRN INH [...] ASDIR PRN IV Fluticasone Propionate (Flonase Nasal [place]) 2 SPRAY DAILY NASAL (CKD) Physical Exam General appearance: alert, awake, oriented Wound/incision: Location: bilateral chest Site condition: dressing clean dry, dressing intact HEENT: anicteric Cardiovascular: regular rate rhythm Respiratory: no distress, no tenderness, symmetric expansion Abdomen: soft, non-tender, no rebound Musculoskeletal: normal inspection Neuro/REWRITER: alert, oriented X 3 Results Findings/Data: Laboratory [...] prior study. Impression By: Jackeline Gonzalez D.O. Results: labs reviewed, vital signs [...] Patient otherwise no complaints. at 1343 RPT #:[id number] END OF REPORT [facility] 2024-11-19 14:10:00 [facility] Cardiology Progress Note REPORT#:[id number] REPORT STATUS: Signed REPORT INITIALIZATION DATE:11/19/24 TIME: 141 PATIENT: YUNIER PRATT UNIT #: [id number] ROOM/BED: [place] [address] : 72 AGE: 54 SEX: F ATTEND: Flynn Becerra MD ADM AUTHOR: Judi Diaz MD [facility]TIME: 11/19/24 1410 * ALL edits or amendments must be made on the electronic/computer document * Subjective Chief complaint: Shortness of breath and chest pain HPI: 54 YO patient with MH of HTN, DM, neuropathy, tobacco abuse who presented at [facility] with shortness of breath and chest pain. She was ruled for NSTEMI, had LHC which revealed multivessed CAD. She is transferred to [facility] for CABG evaluation. Comments: Has pain on [...] Glargine (Semglee) 20 UNIT BID SUBQ Ipratropium Basom (ATROVENT) 500 MCG RTQ2H PRN PRN INH [...] ASDIR PRN IV Fluticasone Propionate (Flonase Nasal [place]) 2 SPRAY DAILY NASAL (CKD) Physical Exam Head/Eyes: atraumatic, normocephalic Neck: non-tender, no JVD Cardiovascular: CV assessment: regular rate and rhythm Respiratory: accessory muscle use (B/L chest tube placed ), decreased breath sounds, shortness of breath, mild SOB Abdomen: soft, non-tender, normal bowel sounds, no distention Genitourinary: no flank pain, no urinary catheter Lower extremity: LE assessment: no edema Musculoskeletal: normal inspection Neuro/REWRITER: alert, oriented X 3, normal speech Skin: [...] DM, neuropathy, tobacco abuse who presented at [facility] with shortness of breath and chest pain. She was ruled for NSTEMI, had LHC which revealed multivessed CAD. She is transferred to [facility] for CABG evaluation. # NSTEMI/Multivessel CAD Post [...] 50-54% - cont GDMT at 1424 RPT #:[id number] END OF REPORT [facility] 2024-11-19 11:44:00 [facility] ([facility]) Brief Op Note REPORT#:[id number] REPORT STATUS: Signed REPORT INITIALIZATION DATE:11/19/24 TIME: 1144 PATIENT: YUNIER PRATT UNIT #: [id number] ROOM/BED: [place] [address] : 72 AGE: 54 SEX: F ATTEND: Flynn Becerra MD ADM AUTHOR: Vito Buitrago REPT SERVICE DT/TIME: 11/19/24 1144 * ALL edits or amendments must be made on the electronic/computer document * Op/Inv Proc Note - Brief Pre-procedure diagnosis: bilateral pleural effusion Post-procedure diagnosis: same as pre procedure dx Procedures performed: Ultrasound guided pleural drain placement Primary Surgeon: Ravi Buitrago. 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 Tract was dilated and a 10 Brazilian drain was guided into the thorax. Pleural [...] none Specimens removed/altered: none at 1150 RPT #:[id number] END OF REPORT [facility] 2024-11-19 10:24:00 [facility] ([facility]) Pain Management Progress Note REPORT#:[id number] REPORT STATUS: Signed REPORT INITIALIZATION DATE:11/19/24 TIME: 1024 PATIENT: YUNIER PRATT UNIT #: [id number] ROOM/BED: [place] [address] : 72 AGE: 54 SEX: F ATTEND: Flynn Becerra MD ADM AUTHOR: Alejandro Cabrera PERSONAL INJURY SPECIALIST REPT SERVICE DT/TIME: 11/19/24 1024 * ALL [...] Glargine (Semglee) 20 UNIT BID SUBQ Ipratropium Basom (ATROVENT) 500 MCG RTQ2H PRN PRN INH [...] ASDIR PRN IV Fluticasone Propionate (Flonase Nasal [place]) 2 SPRAY DAILY NASAL (CKD) Physical Exam General appearance: alert, awake, oriented Head/eyes: atraumatic, EOMI, normocephalic, PERRLA ENT: normal nose, moist mucosal membranes Neck: no JVD, supple/no meningismus Cardiovascular: regular rate rhythm, normal heart sounds, dressing over sternum Respiratory: aerating well, symmetric expansion Abdomen: soft, non-tender, no distention Extremities: moves all, no edema, no clubbing, no cyanosis Neuro/REWRITER: alert, oriented X 3, normal speech, CNII-XII [...] lower lobes. Impression By: [email or web address] - David sAhby M.D. Diagnosis, Assessment Plan Free text A P: Patient is a 54 year old female who presents with the following: Chest pain, acute postoperative pain -S/P CABG on 11/09/24 -DC oxycodone 10mg q6h PRN -DC Dilaudid 4mg PO q4h PRN, pain scale 4-10 (11/15) -DC Acetaminophen 1000mg q6h (11/15) -Lidocaine patch to chest wall daily 12h on 12h off (11/16) -[place] 7.5/325 mg 2 tabs PO q4h PRN [...] 17.2 mg at bedtime -Dulcolax 10 mg AR daily PRN -Manageable Disposition: Okay for outpatient follow up Rx: sent electronically 11/19 [place] 7.5/325 mg PO q6h PRN #20, Narcan, [...] Keith who agrees with plan of care. [place] [employer] records reviewed: Total Prescriptions 6 Total Private Pay 0 Total Prescribers 4 Total Pharmacies 2 2024 2024 1 HYDROCODONE-ACETAMIN 5-325 MG 20.00 3 Pa o [id number] Wal (191) 0 33.33 M[place] Comm Ins [place] 2024 2024 1 TRAMADOL-ACETAMINOPHN 37.5-325 20.00 3 Pa o 607258 [facility] (0655) 0 50.00 MME Comm Ins [place] 06/08/2023 06/08/2023 1 ACETAMINOPHEN-COD #3 TABLET 10.00 10 Ma Gopi 316843 [facility] ( 7395) 0 4.50 MME Comm Ins [place] [employer] (1911) [address] [facility] [address] [facility] (3426) [address] [facility] [address] at 1326 RPT #:[id number] END OF REPORT [facility] 2024-11-19 09:09:00 [facility] ([facility]) Cardiothoracic Surgery Prog REPORT#:[id number] REPORT STATUS: Signed REPORT INITIALIZATION DATE:11/19/24 TIME: 908 PATIENT: YUNIER PRATT UNIT #: [id number] [address]BED: [address] : 72 AGE: 54 SEX: F ATTEND: Flynn Becerra MD ADM AUTHOR: Talita MonzonSKEIN DRIER REPT SERVICE DT/TIME: 11/19/24 0909 * ALL [...] Result Date Time Pulse Ox 92 11/19 08 B/P 125/73 11/19 806 B/P Mean 0.0 11/19 08 O2 Delivery Room air 11/19 806 Temp 99.0 11/19 08 Pulse 78 11/19 08 Resp 15 11/19 806 FiO2 21 11/18 2305 O2 Flow Rate [...] Abdomen: soft, non-tender Extremities: dry, moves all Neuro/REWRITER: alert, oriented X 3 Skin: dry, intact [...] Glargine (Semglee) 20 UNIT BID SUBQ Ipratropium Basom (ATROVENT) 500 MCG RTQ2H PRN PRN INH [...] ASDIR PRN IV Fluticasone Propionate (Flonase Nasal [place]) 2 SPRAY DAILY NASAL (CKD) Results Findings/Data: [...] hypertension, diabetes on insulin who presented to [facility] with complaints of chest pain. She was ruled in for NSTEMI on her blood work. 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 Patient was transferred to [facility] for further evaluation and workup of multivessel [...] MD, nurse, interdisc care team at 0916 at 0838 RPT #:[id number] END OF REPORT [facility] 2024-11-19 08:47:00 [facility] ([facility]) Hospitalist Progress Note REPORT#:[id number] REPORT STATUS: Signed REPORT INITIALIZATION DATE:11/19/24 TIME: 846 PATIENT: YUNIER PRATT UNIT #: [id number] ROOM/BED: [place] [address] : 72 AGE: 54 SEX: F ATTEND: Flynn Becerra MD ADM AUTHOR: Dayanara Man MD R1 REPT SERVICE DT/TIME: 11/19/24 08 * ALL edits or amendments must be made on the electronic/computer document * Dayanara Man 11/19/24 0847: Subjective Chief complaint: has [...] Glargine (Semglee) 20 UNIT BID SUBQ Ipratropium Basom (ATROVENT) 500 MCG RTQ2H PRN PRN INH [...] ASDIR PRN IV Fluticasone Propionate (Flonase Nasal [place]) 2 SPRAY DAILY NASAL (CKD) Physical Exam Head/Eyes: atraumatic, normocephalic ENT: moist mucosal membranes, normal dentition Neck: full range of motion, supple/no meningismus Cardiovascular: normal heart sounds, regular rate rhythm, no murmur Respiratory: aerating well, clear to auscultation, symmetric expansion, no distress Abdomen: non-tender, soft, no distention, no guarding, no rebound Extremities: moves all, no edema Neuro/REWRITER: alert, oriented X 3, CNII-XII intact, no [...] evaluation of SOB and chest pain at [facility]. Patient was found to have NSTEMI. 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 Patient was transported to [facility] for CABG evaluation. Assessment and Plan CORNELL [...] with the resident's findings and plan. at 3378 at 9749 RPT #:[id number] END OF REPORT [facility] 2024-11-18 12:54:00 [facility] ([facility]) Hospitalist Progress Note REPORT#:[id number] REPORT STATUS: Signed REPORT INITIALIZATION DATE:11/18/24 TIME: 1253 PATIENT: YUNIER PRATT UNIT #: [id number] ROOM/BED: [place] [address] : 72 AGE: 54 SEX: F ATTEND: Flynn Becerra MD ADM AUTHOR: Flynn Becerra MD REPT SERVICE DT/TIME: 11/18/24 125 * ALL edits or amendments must be [...] no rebound Extremities: moves all, no edema Neuro/REWRITER: alert, oriented X 3, CNII-XII intact, no motor deficits, no sensory deficits Skin: dry, intact, no rash Psychiatry: normal affect, normal mood Results Findings/Data: Laboratory Tests 11/18 11/18 11/17 11/17 0731 0248 2031 1659 Chemistry Sodium (134 - 147 mEq/L) 141 [...] % (Auto) (14.0 - 32.0 %) 20.2 [place] % (Auto) (4.8 - 9.0 %) 11.7 H Eos % (Auto) (0.3 - 3.7 %) 4.6 H Baso % (Auto) (0.0 - 2.0 %) 0.8 Neut # (Auto) (2.0 - 7.6 x10 3/uL) 3.22 Lymph # (Auto) (1.0 - 3.8 x10 3/uL) 1.05 [place] # (Auto) (0.1 - 0.8 x10 3/uL) [...] evaluation of SOB and chest pain at [facility]. Patient was found to have NSTEMI. 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 Patient was transported to [facility] for CABG evaluation. Assessment and Plan Heparin [...] trending. Keep trending Hb at 1256 RPT #:[id number] END OF REPORT [facility] 2024-11-18 11:19:00 [facility] Cardiology Progress Note REPORT#:[id number] REPORT STATUS: Signed REPORT INITIALIZATION DATE:11/18/24 TIME: 111 PATIENT: YUNIER PRATT UNIT #: [id number] ROOM/BED: [place] [address] : 74 AGE: 54 SEX: F ATTEND: Flynn Becerra MD ADM AUTHOR: Celeste Diaan APRN REPT SERVICE DT/TIME: 11/18/24 1119 * [...] Glargine (Semglee) 20 UNIT BID SUBQ Ipratropium Basom (ATROVENT) 500 MCG RTQ2H PRN PRN INH [...] ASDIR PRN IV Fluticasone Propionate (Flonase Nasal [place]) 2 SPRAY DAILY NASAL (CKD) Physical Exam Head/Eyes: atraumatic, normocephalic Neck: non-tender, no JVD Cardiovascular: CV assessment: regular rate and rhythm Respiratory: decreased breath sounds, shortness of breath, mild SOB Abdomen: soft, non-tender, normal bowel sounds, no distention Genitourinary: no flank pain, no urinary catheter Lower extremity: LE assessment: no edema Musculoskeletal: normal inspection Neuro/REWRITER: alert, oriented X 3, normal speech Skin: [...] % (Auto) (14.0 - 32.0 %) 20.2 [place] % (Auto) (4.8 - 9.0 %) 11.7 H Eos % (Auto) (0.3 - 3.7 %) 4.6 H Baso % (Auto) (0.0 - 2.0 %) 0.8 Neut # (Auto) (2.0 - 7.6 x10 3/uL) 3.22 Lymph # (Auto) (1.0 - 3.8 x10 3/uL) 1.05 [place] # (Auto) (0.1 - 0.8 x10 3/uL) [...] DM, neuropathy, tobacco abuse who presented at [facility] with shortness of breath and chest pain. She was ruled for NSTEMI, had LHC which revealed multivessed CAD. She is transferred to [facility] for CABG evaluation. 1. NSTEMI/Multivessel CAD * [...] MDM per Dr. Richardson. at 1456 at 1702 RPT #:[id number] END OF REPORT [facility] 2024-11-18 09:53:00 [facility] ([facility]) Pain Management Progress Note REPORT#:[id number] REPORT STATUS: Signed REPORT INITIALIZATION DATE:11/18/24 TIME: 952 PATIENT: YUNIER PRATT UNIT #: [id number] ROOM/BED: [address]60[address]1 : 74 AGE: 54 SEX: F ATTEND: Flynn Becerra MD ADM AUTHOR: Alejandro Cabrera NP REPT SERVICE DT/TIME: 11/18/24952 * ALL edits or amendments must be [...] Ox 96 11/18 0734 B/P 129/68 11/18 07 B/P Mean 0.0 11/18 07 O2 Delivery Room air 11/18 733 Temp 97.9 11/18 07 Pulse 81 11/18 0734 Resp 24 11/18 [...] Glargine (Semglee) 20 UNIT BID SUBQ Ipratropium Basom (ATROVENT) 500 MCG RTQ2H PRN PRN INH [...] ASDIR PRN IV Fluticasone Propionate (Flonase Nasal [place]) 2 SPRAY DAILY NASAL (CKD) Physical Exam [...] all, no edema, no clubbing, no cyanosis Neuro/REWRITER: alert, oriented X 3, normal speech, CNII-XII grossly intact Skin: dry, warm Psychiatry: normal affect, normal mood Results Findings/data: Laboratory Tests: 11/18 11/18 11/17 11/17 0731 0248 2031 1659 Chemistry Sodium (134 - 147 mEq/L) 141 [...] % (Auto) (14.0 - 32.0 %) 20.2 [place] % (Auto) (4.8 - 9.0 %) 11.7 H Eos % (Auto) (0.3 - 3.7 %) 4.6 H Baso % (Auto) (0.0 - 2.0 %) 0.8 Neut # (Auto) (2.0 - 7.6 x10 3/uL) 3.22 Lymph # (Auto) (1.0 - 3.8 x10 3/uL) 1.05 [place] # (Auto) (0.1 - 0.8 x10 3/uL) [...] Report Impression - Status: SIGNED Entered: 11/18/2024 0105 IMPRESSION: Moderate central vasculature congestion/pulmonary edema with [...] wall daily 12h on 12h off (11/16) -[place] 7.5/325 mg 2 tabs PO q4h PRN [...] Keith who agrees with plan of care. [place] [employer] records reviewed: Total Prescriptions 6 Total Private Pay 0 Total Prescribers 4 Total Pharmacies 2 2024 2024 1 HYDROCODONE-ACETAMIN 5-325 MG 20.00 3 Pa Tho [id number] Wal (1910) 0 33.33 M[place] Comm Ins [place] 2024 2024 1 TRAMADOL-ACETAMINOPHN 37.5-325 20.00 3 Pa Tho 254999 [facility] (1425) 0 50.00 MME Comm Ins [place] 06/08/2023 06/08/2023 1 ACETAMINOPHEN-COD #3 TABLET 10.00 10 Ma Gopi 046903 [facility] ( 3095) 0 4.50 MME Comm Ins [place] [facility] (1911) [address] [facility] [address] [facility] (1347) [address] [facility] [address] at 1811 RPT #:[id number] END OF REPORT [facility] 2024-11-18 08:53:00 [facility] ([facility]) Cardiothoracic Surgery Prog REPORT#:[id number] REPORT STATUS: Signed REPORT INITIALIZATION DATE:11/18/24 TIME: 852 PATIENT: YUNIER PRATT UNIT #: [id number] ROOM/BED: [place] [address] : 74 AGE: 54 SEX: F ATTEND: Flynn Becerra MD ADM AUTHOR: Talita MonzonSKEIN DRIER REPT SERVICE DT/TIME: 11/18/24 0853 * ALL edits or amendments must [...] Abdomen: soft, non-tender Extremities: dry, moves all Neuro/REWRITER: alert, oriented X 3 Skin: dry, intact [...] Glargine (Semglee) 20 UNIT BID SUBQ Ipratropium Basom (ATROVENT) 500 MCG RTQ2H PRN PRN INH [...] ASDIR PRN IV Fluticasone Propionate (Flonase Nasal [place]) 2 SPRAY DAILY NASAL (CKD) Results Findings/Data: Laboratory Tests 11/188 2031 1659 1210 Chemistry Sodium (134 - [...] (1.6 - 2.6 mg/dL) 1.90 Laboratory Tests 11/188 Hematology WBC (4.5 - 11.0 x10 3/uL) [...] % (Auto) (14.0 - 32.0 %) 20.2 [place] % (Auto) (4.8 - 9.0 %) 11.7 H Eos % (Auto) (0.3 - 3.7 %) 4.6 H Baso % (Auto) (0.0 - 2.0 %) 0.8 Neut # (Auto) (2.0 - 7.6 x10 3/uL) 3.22 Lymph # (Auto) (1.0 - 3.8 x10 3/uL) 1.05 [place] # (Auto) (0.1 - 0.8 x10 3/uL) [...] hypertension, diabetes on insulin who presented to [facility] with complaints of chest pain. She was ruled in for NSTEMI on her blood work. 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 Patient was transferred to [facility] for further evaluation and workup of multivessel [...] MD, nurse, interdisc care team at 0859 at 0837 RPT #:[id number] END OF REPORT [facility] 2024-11-17 14:56:00 [facility] ([facility]) Tereso/Oncology Progress Note REPORT#:[id number] REPORT STATUS: Signed REPORT INITIALIZATION DATE:11/17/24 TIME: 1455 PATIENT: YUNIER PRATT UNIT #: [id number] ROOM/BED: [facility] [place]-1 : 74 AGE: 54 SEX: F ATTEND: Flynn Becerra MD ADM AUTHOR: Huey Michelle MD REPT SERVICE DT/TIME: 11/17/24 1456 * ALL edits or amendments must be [...] 11/17 1212 O2 Delivery Room air 11/17 121 Temp 36.8 11/17 1212 Pulse 75 11/17 1212 Resp 18 11/17 1212 FiO2 21 11/16 0743 O2 Flow Rate 0 11/11 1601 General appearance: awake HEENT: pupils reactive to light Cardiovascular: regular rate and rhythm, normal S1/S2 Respiratory: symmetric expansion Abdomen: non-tender, soft Extremities: edema, moves all, normal temperature, no edema Neuro/REWRITER: alert, oriented X 3, no motor deficits [...] Glargine (Semglee) 20 UNIT BID SUBQ Ipratropium Basom (ATROVENT) 500 MCG RTQ2H PRN PRN INH [...] ASDIR PRN IV Fluticasone Propionate (Flonase Nasal [place]) 2 SPRAY DAILY NASAL (CKD) Results Findings/Data: [...] % (Auto) (14.0 - 32.0 %) 16.5 [place] % (Auto) (4.8 - 9.0 %) 10.5 H Eos % (Auto) (0.3 - 3.7 %) 4.6 H Baso % (Auto) (0.0 - 2.0 %) 0.6 Neut # (Auto) (2.0 - 7.6 x10 3/uL) 4.28 Lymph # (Auto) (1.0 - 3.8 x10 3/uL) 1.05 [place] # (Auto) (0.1 - 0.8 x10 3/uL) [...] post surgery acute on chronic Per MICA ([place] society of Hematology) guidelines of diagnosis and [...] team and CV surgery at 1458 RPT #:[id number] END OF REPORT [facility] 2024-11-17 12:12:00 [facility] ([facility] Cardiology Progress Note REPORT#:[id number] REPORT STATUS: Signed REPORT INITIALIZATION DATE:11/17/24 TIME: 1212 PATIENT: YUNIER PRATT UNIT #: [id number] ROOM/BED: [place] [address] : 74 AGE: 54 SEX: F ATTEND: [...] Glargine (Semglee) 20 UNIT BID SUBQ Ipratropium Basom (ATROVENT) 500 MCG RTQ2H PRN PRN INH [...] ASDIR PRN IV Fluticasone Propionate (Flonase Nasal [place]) 2 SPRAY DAILY NASAL (CKD) Physical Exam General appearance: alert, awake, oriented Head/Eyes: atraumatic, normocephalic Neck: non-tender, no JVD Cardiovascular: CV assessment: regular rate and rhythm Respiratory: decreased breath sounds, shortness of breath, mild SOB Abdomen: soft, non-tender, normal bowel sounds, no distention Genitourinary: no flank pain, no urinary catheter Lower extremity: LE assessment: no edema Musculoskeletal: normal inspection Neuro/REWRITER: alert, oriented X 3, normal speech Skin: dry, intact, normal color Psychiatry: normal affect, normal judgment/insight, normal mood Results Findings/Data: Laboratory Tests 11/17 11/17 11/16 11/16 0722 0406 2023 1624 Chemistry Sodium (134 [...] % (Auto) (14.0 - 32.0 %) 16.5 [place] % (Auto) (4.8 - 9.0 %) 10.5 H Eos % (Auto) (0.3 - 3.7 %) 4.6 H Baso % (Auto) (0.0 - 2.0 %) 0.6 Neut # (Auto) (2.0 - 7.6 x10 3/uL) 4.28 Lymph # (Auto) (1.0 - 3.8 x10 3/uL) 1.05 [place] # (Auto) (0.1 - 0.8 x10 3/uL) [...] DM, neuropathy, tobacco abuse who presented at [facility] with shortness of breath and chest pain. She was ruled for NSTEMI, had LHC which revealed multivessed CAD. She is transferred to [facility] for CABG evaluation. 1. NSTEMI/Multivessel CAD * [...] MDM per Dr. Richardson. at 1734 at 1834 RPT #:[id number] END OF REPORT [facility] 2024-11-17 10:52:[address] [facility]) Cardiothoracic Surgery Prog REPORT#:[id number] REPORT STATUS: Signed REPORT INITIALIZATION DATE:11/17/24 TIME: 105 PATIENT: YUNIER PRATT UNIT #: [id number] [facility] AGE: 54 SEX: F ATTEND: Flynn Becerra MD ADM AUTHOR: Talita Monzon APRN-SKEIN DRIER REPT SERVICE DT/TIME: 11/17/24 1052 * ALL [...] Documented: Result Date Time Pulse Ox 93 11/17 0820 O2 Delivery Room air 11/17 0820 B/P 124/64 11/17 0652 B/P Mean 0.0 11/17 06 Temp 98.2 11/17 0652 Pulse 75 11/17 0652 Resp 17 11/17 0652 FiO2 21 11/16 0743 O2 Flow Rate [...] Abdomen: soft, non-tender Extremities: dry, moves all Neuro/REWRITER: alert, oriented X 3 Skin: dry, intact [...] Glargine (Semglee) 20 UNIT BID SUBQ Ipratropium Basom (ATROVENT) 500 MCG RTQ2H PRN PRN INH [...] ASDIR PRN IV Fluticasone Propionate (Flonase Nasal [place]) 2 SPRAY DAILY NASAL (CKD) Results Findings/Data: [...] % (Auto) (14.0 - 32.0 %) 16.5 [place] % (Auto) (4.8 - 9.0 %) 10.5 H Eos % (Auto) (0.3 - 3.7 %) 4.6 H Baso % (Auto) (0.0 - 2.0 %) 0.6 Neut # (Auto) (2.0 - 7.6 x10 3/uL) 4.28 Lymph # (Auto) (1.0 - 3.8 x10 3/uL) 1.05 [place] # (Auto) (0.1 - 0.8 x10 3/uL) [...] RADIOLOGY - XR CHEST 1 V 11/17 6543 Report Impression - Status: SIGNED Entered: 11/17/2024 [...] hypertension, diabetes on insulin who presented to [facility] with complaints of chest pain. She was ruled in for NSTEMI on her blood work. 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 Patient was transferred to [facility] for further evaluation and workup of multivessel [...] MD, nurse, interdisc care team at 1058 at 0816 RPT #:[id number] END OF REPORT [facility] 2024-11-17 08:14:00 [facility] Hospitalist Progress Note REPORT#:[id number] REPORT STATUS: Signed REPORT INITIALIZATION DATE:11/17/24 TIME: 813 PATIENT: YUNIER PRATT UNIT #: [id number] ROOM/BED: [place] [address] : 74 AGE: 54 SEX: F ATTEND: Flynn Becerra MD ADM AUTHOR: Dayanara Man MD R1 REPT SERVICE DT/TIME: 11/17/24813 * ALL edits or amendments must be [...] Glargine (Semglee) 20 UNIT BID SUBQ Ipratropium Basom (ATROVENT) 500 MCG RTQ2H PRN PRN INH [...] ASDIR PRN IV Fluticasone Propionate (Flonase Nasal [place]) 2 SPRAY DAILY NASAL (CKD) Physical Exam Head/Eyes: atraumatic, normocephalic ENT: moist mucosal membranes, normal dentition Neck: full range of motion, supple/no meningismus Cardiovascular: normal heart sounds, regular rate rhythm, no murmur Respiratory: aerating well, clear to auscultation, symmetric expansion, no distress Abdomen: non-tender, soft, no distention, no guarding, no rebound Extremities: moves all, no edema Neuro/REWRITER: alert, oriented X 3, CNII-XII intact, no motor deficits, no sensory deficits Skin: dry, intact, no rash Psychiatry: normal affect, normal mood Results Findings/Data: Laboratory Tests 11/17 11/17 11/17 11/16 11/16 1210 0722 0406 2024 1624 Chemistry Sodium (134 [...] % (Auto) (14.0 - 32.0 %) 16.5 [place] % (Auto) (4.8 - 9.0 %) 10.5 H Eos % (Auto) (0.3 - 3.7 %) 4.6 H Baso % (Auto) (0.0 - 2.0 %) 0.6 Neut # (Auto) (2.0 - 7.6 x10 3/uL) 4.28 Lymph # (Auto) (1.0 - 3.8 x10 3/uL) 1.05 [place] # (Auto) (0.1 - 0.8 x10 3/uL) [...] evaluation of SOB and chest pain at [facility]. Patient was found to have NSTEMI. 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 Patient was transported to [facility] for CABG evaluation. Assessment and Plan Heparin [...] RACHELLE trending. Keep trending Hb Flynn Becerra 11/17/24 1532: Attestations Teaching Physician Attestation F/U visit w/o resident: I personally saw the patient and reviewed the resident's note. I agree with the resident's findings and plan. at 1515 at 1533 RPT #:[id number] END OF REPORT [facility] 2024-11-17 07:49:00 [facility] Pain Management Progress Note REPORT#:[id number] REPORT STATUS: Signed REPORT INITIALIZATION DATE:11/17/24 TIME: 748 PATIENT: YUNIER PRTAT UNIT #: [id number] ROOM/BED: [place] [address] : 74 AGE: 54 SEX: F ATTEND: Flynn Becerra MD ADM AUTHOR: Alejandro Cabrera PERSONAL INJURY SPECIALIST REPT SERVICE DT/TIME: 11/17/24 0749 * ALL [...] Glargine (Semglee) 20 UNIT BID SUBQ Ipratropium Basom (ATROVENT) 500 MCG RTQ2H PRN PRN INH [...] ASDIR PRN IV Fluticasone Propionate (Flonase Nasal [place]) 2 SPRAY DAILY NASAL (CKD) Physical Exam General appearance: alert, awake, oriented, no respiratory distress Head/eyes: atraumatic, EOMI, normocephalic, PERRLA ENT: normal nose, moist mucosal membranes Neck: no JVD, supple/no meningismus Cardiovascular: regular rate rhythm, normal heart sounds, dressing over sternum Respiratory: clear to auscultation, aerating well, symmetric expansion Abdomen: soft, non-tender, no distention Extremities: moves all, no edema, no clubbing, no cyanosis Neuro/REWRITER: alert, oriented X 3, normal speech, CNII-XII grossly intact Skin: dry Psychiatry: normal affect, normal mood Results Findings/data: Laboratory Tests: 11/17 11/17 11/16 11/16 0722 3081 2023 1624 Chemistry Sodium (134 - 147 [...] % (Auto) (14.0 - 32.0 %) 16.5 [place] % (Auto) (4.8 - 9.0 %) 10.5 H Eos % (Auto) (0.3 - 3.7 %) 4.6 H Baso % (Auto) (0.0 - 2.0 %) 0.6 Neut # (Auto) (2.0 - 7.6 x10 3/uL) 4.28 Lymph # (Auto) (1.0 - 3.8 x10 3/uL) 1.05 [place] # (Auto) (0.1 - 0.8 x10 3/uL) [...] wall daily 12h on 12h off (11/16) -[place] 7.5/325 mg 2 tabs PO q4h PRN [...] Keith who agrees with plan of care. [place] [employer] records reviewed: Total Prescriptions 6 Total Private Pay 0 Total Prescribers 4 Total Pharmacies 2 2024 2024 1 HYDROCODONE-ACETAMIN 5-325 MG 20.00 3 [place] [id number] [facility] (1910) 0 33.33 MME Comm Ins [place] 2024 2024 1 TRAMADOL-ACETAMINOPHN 37.5-325 20.00 3 Pa Tho [id number] [facility] (5114) 0 50.00 MME Comm Ins [place] 06/08/2023 06/08/2023 1 ACETAMINOPHEN-COD #3 TABLET 10.00 10 Ma Gopi [id number] [facility] ( 5115) 0 4.50 M[place] Comm [place] Group [facility] [place] (1910) [address] [place] [id number] [facility] (2724) [address] [place] [address] at 1525 RPT #:[id number] END OF REPORT [facility] 2024-11-16 23:11:00 [facility] ([facility]) Tereso/Oncology Progress Note REPORT#:[id number] REPORT STATUS: Signed REPORT INITIALIZATION DATE:11/16/24 TIME: 2310 PATIENT: YUNIER PRATT UNIT #: [id number] ROOM/BED: [place] [address] : 74 AGE: 54 SEX: F ATTEND: [...] 11/16 2099 O2 Delivery Room air 11/16 2100 B/P 149/70 11/17 1915 B/P Mean 0.0 11/17 1915 Temp 36.5 11/17 1915 Pulse 101 11/17 1915 Resp 20 11/17 1915 FiO2 21 11/16 0743 O2 Flow Rate 0 11/11 1601 HEENT: pupils reactive to light Cardiovascular: regular rate and rhythm, normal S1/S2 Respiratory: symmetric expansion Abdomen: non-tender, soft Extremities: edema, moves all, normal temperature, no edema Neuro/REWRITER: alert, oriented X 3, no motor deficits [...] Glargine (Semglee) 20 UNIT BID SUBQ Ipratropium Basom (ATROVENT) 500 MCG RTQ2H PRN PRN INH [...] ASDIR PRN IV Fluticasone Propionate (Flonase Nasal [place]) 2 SPRAY DAILY NASAL (CKD) Results Findings/Data: Laboratory Tests 11/16/24 0458: [Embedded Image Not Available] 11/16/24 0457: [Embedded Image Not Available] Laboratory Tests 11/16 [...] % (Auto) (14.0 - 32.0 %) 22.2 [place] % (Auto) (4.8 - 9.0 %) 11.3 H Eos % (Auto) (0.3 - 3.7 %) 3.8 H Baso % (Auto) (0.0 - 2.0 %) 0.6 Neut # (Auto) (2.0 - 7.6 x10 3/uL) 3.05 Lymph # (Auto) (1.0 - 3.8 x10 3/uL) 1.10 [place] # (Auto) (0.1 - 0.8 x10 3/uL) [...] post surgery acute on chronic Per MICA ([place] society of Hematology) guidelines of diagnosis and [...] plavix * supportive meds at 2313 RPT #:[id number] END OF REPORT [facility] 2024-11-16 10:11:00 [facility] Cardiothoracic Surgery Prog REPORT#:[id number] REPORT STATUS: Signed REPORT INITIALIZATION DATE:11/16/24 TIME: 101 PATIENT: YUNIER PRATT UNIT #: [id number] ROOM/BED: [facility] : 74 AGE: 54 SEX: F ATTEND: Flynn Becerra MD ADM AUTHOR: Talita Monzon APRN-SKEIN DRIER REPT SERVICE DT/TIME: 11/16/24 1011 * ALL [...] Abdomen: soft, non-tender Extremities: dry, moves all Neuro/REWRITER: alert, oriented X 3 Skin: dry, intact Current Medications Medications: Active Meds + DC'd Last 24 Hrs Tizanidine HCl (ZANAFLEX) 4 MG Q8HR PO Hydrocodone Bitart/Acetaminophen ([place] 7.5/325 TABLET) 2 TAB Q4H PRN PRN PO Hydromorphone HCl (DILAUDID) 0.5 MG Q6H PRN PRN IV Insulin Glargine (Semglee) 20 UNIT BID SUBQ Sodium Chloride (SODIUM CHLORIDE 0.9%) 100 ML ASDIR PRN IV (DC) Ipratropium Basom (ATROVENT) 500 MCG RTQ2H PRN PRN INH [...] ASDIR PRN IV Fluticasone Propionate (Flonase Nasal [place]) 2 SPRAY DAILY NASAL (CKD) Results Findings/Data: [...] % (Auto) (14.0 - 32.0 %) 22.2 [place] % (Auto) (4.8 - 9.0 %) 11.3 H Eos % (Auto) (0.3 - 3.7 %) 3.8 H Baso % (Auto) (0.0 - 2.0 %) 0.6 Neut # (Auto) (2.0 - 7.6 x10 3/uL) 3.05 Lymph # (Auto) (1.0 - 3.8 x10 3/uL) 1.10 [place] # (Auto) (0.1 - 0.8 x10 3/uL) [...] hypertension, diabetes on insulin who presented to [facility] with complaints of chest pain. She was ruled in for NSTEMI on her blood work. 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 Patient was transferred to [facility] for further evaluation and workup of multivessel [...] were answered Give Lasix 20 IV today. 3 POD 3 AAOx3 Patient reports pain, Multimodal [...] MD, nurse, interdisc care team at 1457 at 0846 RPT #:[id number] END OF REPORT [facility] 2024-11-16 09:00:00 [facility] ([facility]) Pain Management Progress Note REPORT#:[id number] REPORT STATUS: Signed REPORT INITIALIZATION DATE:11/16/24 TIME: 09 PATIENT: YUNIER PRATT UNIT #: [id number] ROOM/BED: [place] [address] : 74 AGE: 54 SEX: F ATTEND: Flynn Becerra MD ADM AUTHOR: Alejandro Cabrera PERSONAL INJURY SPECIALIST REPT SERVICE DT/TIME: 11/16/24 0900 * ALL [...] 100 ML ASDIR PRN IV (DC) Methylnaltrexone Basom (RELISTOR 12MG VIAL) 12 MG DAILY SUBQ (DC) Ipratropium Basom (ATROVENT) 500 MCG RTQ2H PRN PRN INH [...] ASDIR PRN IV Fluticasone Propionate (Flonase Nasal [place]) 2 SPRAY DAILY NASAL (CKD) Physical Exam General appearance: alert, awake Head/eyes: atraumatic, EOMI, normocephalic, PERRLA ENT: normal nose Neck: no JVD, supple/no meningismus Cardiovascular: regular rate rhythm, normal heart sounds, dressing over sternum Respiratory: clear to auscultation, aerating well, symmetric expansion Abdomen: soft, non-tender, no distention Extremities: moves all, no edema, no clubbing, no cyanosis Neuro/REWRITER: alert, oriented X 3, normal speech, CNII-XII grossly intact Skin: dry, normal turgor, warm Psychiatry: normal affect, normal mood Results Findings/data: Laboratory Tests: 11/16 11/16 11/16 11/15 0755 0458 0457 2105 Chemistry Sodium (134 - 147 mEq/L) 139 [...] % (Auto) (14.0 - 32.0 %) 22.2 [place] % (Auto) (4.8 - 9.0 %) 11.3 H Eos % (Auto) (0.3 - 3.7 %) 3.8 H Baso % (Auto) (0.0 - 2.0 %) 0.6 Neut # (Auto) (2.0 - 7.6 x10 3/uL) 3.05 Lymph # (Auto) (1.0 - 3.8 x10 3/uL) 1.10 [place] # (Auto) (0.1 - 0.8 x10 3/uL) [...] RADIOLOGY - XR CHEST 1 V 11/15 2856 Report Impression - Status: SIGNED Entered: 11/15/2024 4362 IMPRESSION: Features of congestive heart failure with [...] wall daily 12h on 12h off (11/16) -[place] 7.5/325 mg 2 tabs PO q4h PRN [...] days (11/13) -Adjustment made Disposition: Rx: Pharmacy: [facility] [place] Past medical history: DM, HTN, CAD Past [...] Keith who agrees with plan of care. [place] [employer] records reviewed: Total Prescriptions 6 Total Private Pay 0 Total Prescribers 4 Total Pharmacies 2 2024 2024 1 HYDROCODONE-ACETAMIN 5-325 MG 20.00 3 Pa Tho [id number] [facility] (1910) 0 33.33 MME Comm Ins [place] 2024 2024 1 TRAMADOL-ACETAMINOPHN 37.5-325 20.00 3 Pa Tho [id number] [facility] (4135) 0 50.00 MME Comm Ins [place] 06/08/2023 06/08/2023 1 ACETAMINOPHEN-COD #3 TABLET 10.00 10 Ma Gopi [id number] [facility] ( 3905) 0 4.50 [place] [facility] [place] (1910) [address] [facility] [address] [facility] (6246) [address] [facility] [address] at 1657 RPT #:[id number] END OF REPORT [facility] 2024-11-16 08:03:00 [facility] ([facility]) Hospitalist Progress Note REPORT#:[id number] REPORT STATUS: Signed REPORT INITIALIZATION DATE:11/16/24 TIME: 802 PATIENT: YUNIER PRATT UNIT #: [id number] ROOM/BED: [place] [address] : 74 AGE: 54 SEX: F ATTEND: [...] no rebound Extremities: moves all, no edema Neuro/REWRITER: alert, oriented X 3, CNII-XII intact, no [...] evaluation of SOB and chest pain at [facility]. Patient was found to have NSTEMI. 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 Patient was transported to [facility] for CABG evaluation. Assessment and Plan Heparin [...] resident's findings and plan. at 1733 at 1208 RPT #:[id number] END OF REPORT [facility] 2024-11-15 09:12:00 [facility] ([facility]) Pain Management Progress Note REPORT#:[id number] REPORT STATUS: Signed REPORT INITIALIZATION DATE:11/15/24 TIME: 911 PATIENT: YUNIER PRATT UNIT #: [id number] ROOM/BED: [place] [address] : 74 AGE: 54 SEX: F ATTEND: Leyda Trotter MD ADM AUTHOR: Alejandro Cabrera PERSONAL INJURY SPECIALIST REPT SERVICE DT/TIME: 11/15/24 0912 * ALL [...] Mean Pulse Ox FiO2 11/14-11/15 98.4-99.5 76-88 12- 116-159/60-84 0.0-82.4 94-100 Last Documented: Result Date Time Pulse Ox 96 11/15 0757 B/P 116/66 11/15 0757 B/P Mean 82.4 03/27 0757 Temp 98.6 11/15 0757 Pulse 81 [...] 0.9%) 100 ML ASDIR PRN IV Methylnaltrexone Basom (RELISTOR 12MG VIAL) 12 MG DAILY SUBQ (DC) Ipratropium Basom (ATROVENT) 500 MCG RTQ2H PRN PRN INH [...] ASDIR PRN IV Fluticasone Propionate (Flonase Nasal [place]) 2 SPRAY DAILY NASAL (CKD) Physical Exam General appearance: alert, awake Head/eyes: atraumatic, EOMI, normocephalic, PERRLA ENT: normal ear right, normal nose Neck: no JVD, supple/no meningismus Cardiovascular: regular rate rhythm, normal heart sounds, dressing over sternum Respiratory: clear to auscultation, aerating well, symmetric expansion Abdomen: soft, non-tender, no distention Extremities: moves all, no edema, no clubbing, no cyanosis Neuro/REWRITER: alert, oriented X 3, normal speech, CNII-XII [...] % (Auto) (14.0 - 32.0 %) 17.8 [place] % (Auto) (4.8 - 9.0 %) 11.6 H Eos % (Auto) (0.3 - 3.7 %) 4.3 H Baso % (Auto) (0.0 - 2.0 %) 0.6 Neut # (Auto) (2.0 - 7.6 x10 3/uL) 3.05 Lymph # (Auto) (1.0 - 3.8 x10 3/uL) 0.83 L [place] # (Auto) (0.1 - 0.8 x10 3/uL) [...] % (Auto) (14.0 - 32.0 %) 17.9 [place] % (Auto) (4.8 - 9.0 %) 8.3 Eos % (Auto) (0.3 - 3.7 %) 4.0 H Baso % (Auto) (0.0 - 2.0 %) 0.4 Neut # (Auto) (2.0 - 7.6 x10 3/uL) 3.67 Lymph # (Auto) (1.0 - 3.8 x10 3/uL) 0.95 L [place] # (Auto) (0.1 - 0.8 x10 3/uL) [...] 4-10 (11/15) -DC Acetaminophen 1000mg q6h (11/15) -[place] 7.5/325 mg 2 tabs PO q4h PRN [...] Keith who agrees with plan of care. [facility] records reviewed: Total Prescriptions 6 Total Private Pay 0 Total Prescribers 4 Total Pharmacies 2 2024 2024 1 HYDROCODONE-ACETAMIN 5-325 MG 20.00 3 Pa o [id number] [facility] (1910) 0 33.33 M[place] Comm Ins [place] 2024 2024 1 TRAMADOL-ACETAMINOPHN 37.5-325 20.00 3 Pa o [id number] [facility] (5885) 0 50.00 MME Comm Ins [place] 06/08/2023 06/08/2023 1 ACETAMINOPHEN-COD #3 TABLET 10.00 10 Ma Gopi [id number] [facility] ( 5775) 0 4.50 MME Comm Ins [place] Group Therapy [place] (1910) [address] [facility] [id number] [facility] (3592) [address] [facility] [address] at 1251 RPT #:[id number] END OF REPORT [facility] 2024-11-15 08:10:00 [facility] ([facility]) Cardiology Progress Note REPORT#:[id number] REPORT STATUS: Signed REPORT INITIALIZATION DATE:11/15/24 TIME: 08 PATIENT: YUNIER PRATT UNIT #: [id number] ROOM/BED: [place] [address] : 74 AGE: 54 SEX: F ATTEND: Leyda Trotter MD ADM AUTHOR: Fay Fernandez AGACNP REPT SERVICE DT/TIME: 11/15/24 0810 * ALL [...] 0.9%) 100 ML ASDIR PRN IV Methylnaltrexone Basom (RELISTOR 12MG VIAL) 12 MG DAILY SUBQ (CKD) Ipratropium Basom (ATROVENT) 500 MCG RTQ2H PRN PRN INH [...] ASDIR PRN IV Fluticasone Propionate (Flonase Nasal [place]) 2 SPRAY DAILY NASAL (CKD) Physical Exam General appearance: alert, awake, oriented Neck: non-tender, no JVD Cardiovascular: CV assessment: regular rate and rhythm Respiratory: decreased breath sounds, shortness of breath, mild SOB Abdomen: soft, non-tender, normal bowel sounds, no distention Genitourinary: no flank pain, no urinary catheter Lower extremity: LE assessment: no edema Musculoskeletal: normal inspection Neuro/REWRITER: alert, oriented X 3, normal speech Skin: [...] (Auto) (14.0 - 32.0 %) 17.8 17.9 [place] % (Auto) (4.8 - 9.0 %) 11.6 H 8.3 Eos % (Auto) (0.3 - 3.7 %) 4.3 H 4.0 H Baso % (Auto) (0.0 - 2.0 %) 0.6 0.4 Neut # (Auto) (2.0 - 7.6 x10 3/uL) 3.05 3.67 Lymph # (Auto) (1.0 - 3.8 x10 3/uL) 0.83 L 0.95 L [place] # (Auto) (0.1 - 0.8 x10 3/uL) [...] DM, neuropathy, tobacco abuse who presented at [facility] with shortness of breath and chest pain. She was ruled for NSTEMI, had LHC which revealed multivessed CAD. She is transferred to [facility] for CABG evaluation. 1. NSTEMI/Multivessel CAD * [...] MDM by Dr. Lindquist. at 1838 RPT #:[id number] END OF REPORT [facility] 2024-11-15 08:02:00 [facility] REPORT#:[id number] REPORT STATUS: Signed REPORT INITIALIZATION DATE:11/15/24 TIME: 08 PATIENT: YUNIER PRATT UNIT #: [id number] ROOM/BED: [place] [address] : 74 AGE: 54 SEX: F ATTEND: [...] 0.9%) 100 ML ASDIR PRN IV Methylnaltrexone Basom (RELISTOR 12MG VIAL) 12 MG DAILY SUBQ (CKD) Ipratropium Basom (ATROVENT) 500 MCG RTQ2H PRN PRN INH [...] ASDIR PRN IV Fluticasone Propionate (Flonase Nasal [place]) 2 SPRAY DAILY NASAL (CKD) Physical Exam Head/Eyes: atraumatic, normocephalic ENT: moist mucosal membranes, normal dentition Neck: full range of motion, supple/no meningismus Cardiovascular: normal heart sounds, regular rate rhythm, no murmur Respiratory: aerating well, clear to auscultation, symmetric expansion, no distress Abdomen: non-tender, soft, no distention, no guarding, no rebound Extremities: moves all, no edema Neuro/REWRITER: alert, oriented X 3, CNII-XII intact, no [...] (Auto) (14.0 - 32.0 %) 17.8 17.9 [place] % (Auto) (4.8 - 9.0 %) 11.6 H 8.3 Eos % (Auto) (0.3 - 3.7 %) 4.3 H 4.0 H Baso % (Auto) (0.0 - 2.0 %) 0.6 0.4 Neut # (Auto) (2.0 - 7.6 x10 3/uL) 3.05 3.67 Lymph # (Auto) (1.0 - 3.8 x10 3/uL) 0.83 L 0.95 L [place] # (Auto) (0.1 - 0.8 x10 3/uL) [...] evaluation of SOB and chest pain at [facility]. Patient was found to have NSTEMI. 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 Patient was transported to [facility] for CABG evaluation. Assessment and Plan Heparin [...] and plan. at 1526 at 2014 RPT #:[id number] END OF REPORT [facility] 2024-11-14 20:28:[address] [facility]) Tereso/Oncology Progress Note REPORT#:[id number] REPORT STATUS: Signed REPORT INITIALIZATION DATE:11/14/24 TIME: 2027 PATIENT: YUNIER PRATT UNIT #: [id number] ROOM/BED: [place] [id number] : 74 AGE: 54 SEX: F ATTEND: [...] Ox 96 11/14 1902 B/P 159/73 11/14 190 B/P Mean 0.0 11/14 190 O2 Delivery Room air 11/14 1901 Temp 37.4 11/14 190 Pulse 85 11/14 190 Resp 14 11/14 190 FiO2 21 11/13 1053 O2 Flow Rate 0 11/11 1601 HEENT: pupils reactive to light Cardiovascular: regular rate and rhythm, normal S1/S2 Respiratory: symmetric expansion Abdomen: non-tender, soft Extremities: edema, moves all, normal temperature, no edema Neuro/REWRITER: alert, oriented X 3, no motor deficits [...] 0.9%) 100 ML ASDIR PRN IV Methylnaltrexone Basom (RELISTOR 12MG VIAL) 12 MG DAILY SUBQ (CKD) Ipratropium Basom (ATROVENT) 500 MCG RTQ2H PRN PRN INH [...] ASDIR PRN IV Fluticasone Propionate (Flonase Nasal [place]) 2 SPRAY DAILY NASAL (CKD) Results Findings/Data: [...] % (Auto) (14.0 - 32.0 %) 17.9 [place] % (Auto) (4.8 - 9.0 %) 8.3 Eos % (Auto) (0.3 - 3.7 %) 4.0 H Baso % (Auto) (0.0 - 2.0 %) 0.4 Neut # (Auto) (2.0 - 7.6 x10 3/uL) 3.67 Lymph # (Auto) (1.0 - 3.8 x10 3/uL) 0.95 L [place] # (Auto) (0.1 - 0.8 x10 3/uL) [...] RADIOLOGY - XR CHEST 1 V 11/14 0809 Report Impression - Status: SIGNED Entered: 11/14/2024 [...] post surgery acute on chronic Per MICA ([place] society of Hematology) guidelines of diagnosis and [...] * cbc in am at 2031 RPT #:[id number] END OF REPORT [facility] 2024-11-14 13:46:00 [facility] ([facility]) Clinical Note REPORT#:[id number] REPORT STATUS: Signed REPORT INITIALIZATION DATE:11/14/24 TIME: 1345 PATIENT: YUNIER PRATT UNIT #: [id number] [facility] AGE: 54 SEX: F ATTEND: Flynn Becerra MD ADM AUTHOR: Talita Monzon APRN-MICHAEL REPT SERVICE DT/TIME: 11/14/24 1346 * ALL [...] LAD Stenosis = 70%, Non- ST Elevation PR, PR: 1 to 7 Days Valve Disease: Mild [...] LAD Stenosis = 70%, Non- ST Elevation PR, PR: 1 to 7 Days Valve Disease: Mild MR, Mild TR at 1352 at 0846 Addendum 1: 11/14/24 1353 by Talita Monzon Procedure Type: Isolated CABG Perioperative Outcome Estimate % Operative Mortality 0.841% Morbidity Mortality 6.27% Stroke 0.912% Renal Failure 0.946% Reoperation 1.93% Prolonged Ventilation 3.05% Deep Sternal Wound Infection 0.567% Long Hospital Stay (>14 days) 3.2% Short Hospital Stay (<6 days)* 48.8% at 1353 RPT #:[id number] END OF REPORT [facility] 2024-11-14 10:06:00 [facility] Cardiothoracic Surgery Prog REPORT#:[id number] REPORT STATUS: Signed REPORT INITIALIZATION DATE:11/14/24 TIME: 1006 PATIENT: YUNIER PRATT UNIT #: [id number] ROOM/BED: [facility]-1 : 72 AGE: 54 SEX: F ATTEND: Flynn Becerra MD ADM AUTHOR: Talita MonzonSKEIN DRIER REPT SERVICE DT/TIME: 11/14/24 1006 * ALL [...] 11/14 0815 B/P Mean 0.0 11/14 0815 Temp 99.0 11/14 0815 Pulse 84 11/14 [...] Abdomen: soft, non-tender Extremities: dry, moves all Neuro/REWRITER: alert, oriented X 3 Skin: dry, intact Current Medications Medications: Active Meds + DC'd Last 24 Hrs Methocarbamol (ROBAXIN) 1,000 MG Q8HR IV Bisacodyl (DULCOLAX) 10 MG ONCE ONE RECTAL (DC) Magnesium Hydroxide (MILK OF MAGNESIA) 30 ML ONCE ONE PO (DC) Insulin Glargine (Semglee) 20 UNIT BID SUBQ Sodium Chloride (SODIUM CHLORIDE 0.9%) 100 ML ASDIR PRN IV Methylnaltrexone Basom (RELISTOR 12MG VIAL) 12 MG DAILY SUBQ (CKD) Ipratropium Basom (ATROVENT) 500 MCG RTQ2H PRN PRN INH [...] ASDIR PRN IV Fluticasone Propionate (Flonase Nasal [place]) 2 SPRAY DAILY NASAL (CKD) Results Findings/Data: [...] hypertension, diabetes on insulin who presented to [facility] with complaints of chest pain. She was ruled in for NSTEMI on her blood work. 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 Patient was transferred to [facility] for further evaluation and workup of multivessel [...] were answered Give Lasix 20 IV today. 3 POD 3 AAOx3 Patient reports pain, Multimodal [...] MD, nurse, interdisc care team at 1015 at 0846 RPT #:[id number] END OF REPORT [facility] 2024-11-14 08:53:00 [facility] ([facility] Hospitalist Progress Note REPORT#:[id number] REPORT STATUS: Signed REPORT INITIALIZATION DATE:11/14/24 TIME: 852 PATIENT: YUNIER PRATT UNIT #: [id number] ROOM[address]BED: [address] : 72 AGE: 54 SEX: F [...] 0.9%) 100 ML ASDIR PRN IV Methylnaltrexone Basom (RELISTOR 12MG VIAL) 12 MG DAILY SUBQ (CKD) Ipratropium Basom (ATROVENT) 500 MCG RTQ2H PRN PRN INH [...] ASDIR PRN IV Fluticasone Propionate (Flonase Nasal [place]) 2 SPRAY DAILY NASAL (CKD) Physical Exam Head/Eyes: atraumatic, normocephalic ENT: moist mucosal membranes, normal dentition Neck: full range of motion, supple/no meningismus Cardiovascular: normal heart sounds, regular rate rhythm, no murmur Respiratory: aerating well, clear to auscultation, symmetric expansion, no distress Abdomen: non-tender, soft, no distention, no guarding, no rebound Extremities: moves all, no edema Neuro/REWRITER: alert, oriented X 3, CNII-XII intact, no [...] % (Auto) (14.0 - 32.0 %) 17.9 [place] % (Auto) (4.8 - 9.0 %) 8.3 Eos % (Auto) (0.3 - 3.7 %) 4.0 H Baso % (Auto) (0.0 - 2.0 %) 0.4 Neut # (Auto) (2.0 - 7.6 x10 3/uL) 3.67 Lymph # (Auto) (1.0 - 3.8 x10 3/uL) 0.95 L [place] # (Auto) (0.1 - 0.8 x10 3/uL) [...] RADIOLOGY - XR CHEST 1 V 11/14 9733 Report Impression - Status: SIGNED Entered: 11/14/2024 [...] evaluation of SOB and chest pain at [facility]. Patient was found to have NSTEMI. 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 Patient was transported to [facility] for CABG evaluation. Assessment and Plan Heparin [...] and plan. at 1421 at 0056 RPT #:[id number] END OF REPORT [facility] 2024-11-14 08:42:00 [facility] ([facility]) Pain Management Progress Note REPORT#:[id number] REPORT STATUS: Signed REPORT INITIALIZATION DATE:11/14/24 TIME: 841 PATIENT: YUNIER PRATT UNIT #: [id number] ROOM/BED: [place] [address] : 72 AGE: 54 SEX: F ATTEND: Leyda Trotter MD ADM AUTHOR: Alejandro Cabrera PERSONAL INJURY SPECIALIST REPT SERVICE DT/TIME: 11/14/24 0842 * ALL [...] 11/14 0815 O2 Delivery Room air 11/14 0815 Temp 99.0 11/14 0815 Pulse 84 11/14 [...] 0.9%) 100 ML ASDIR PRN IV Methylnaltrexone Basom (RELISTOR 12MG VIAL) 12 MG DAILY SUBQ (CKD) Ipratropium Basom (ATROVENT) 500 MCG RTQ2H PRN PRN INH [...] ASDIR PRN IV Fluticasone Propionate (Flonase Nasal [place]) 2 SPRAY DAILY NASAL (CKD) Physical Exam General appearance: alert, awake Head/eyes: atraumatic, EOMI, normocephalic, PERRLA ENT: normal nose Neck: no JVD, supple/no meningismus Cardiovascular: regular rate rhythm, normal heart sounds, dressing over sternum Respiratory: clear to auscultation, aerating well, symmetric expansion Abdomen: soft, non-tender, no distention Extremities: moves all, no edema, no clubbing, no cyanosis Neuro/REWRITER: alert, oriented X 3, normal speech, CNII-XII [...] days (11/13) -Adjustment made Dis[facility]: [facility] Past medical history: DM, HTN, CAD [...] Keith who agrees with plan of care. [place] [employer] records reviewed: Total Prescriptions 6 Total Private Pay 0 Total Prescribers 4 Total Pharmacies 2 2024 2024 1 HYDROCODONE-ACETAMIN 5-325 MG 20.00 3 [facility] [id number] Charu (191) 0 33.33 MME Comm Ins [place] 2024 2024 1 TRAMADOL-ACETAMINOPHN 37.5-325 20.00 3 Pa o [id number] [facility] (7908) 0 50.00 MME Comm Ins [place] 06/08/2023 06/08/2023 1 ACETAMINOPHEN-COD #3 TABLET 10.00 10 Ma Gopi [id number] [facility] ( 5185) 0 4.50 MME Comm Ins [place] [facility] (1911) [address] [place] [address] [facility] (9463) [address] [place] [address] at 1403 RPT #:[id number] END OF REPORT [facility] 2024-11-14 07:25:00 [facility] ([facility]) Cardiology Progress Note REPORT#:[id number] REPORT STATUS: Signed REPORT INITIALIZATION DATE:11/14/24 TIME: 724 PATIENT: YUNIER PRATT UNIT #: [id number] ROOM/BED: [place] [address] : 72 AGE: 54 SEX: F ATTEND: Leyda Trotter MD ADM AUTHOR: Fay FernandezCNSaad REPT SERVICE DT/TIME: 11/14/24724 * ALL edits [...] 0.9%) 100 ML ASDIR PRN IV Methylnaltrexone Basom (RELISTOR 12MG VIAL) 12 MG DAILY SUBQ (CKD) Potassium Chloride (POTASSIUM CHLORIDE 20MEQ TAB.ER) 20 MEQ ONCE ONE PO (DC) Bisacodyl (DULCOLAX) 10 MG ONCE ONE RECTAL (DC) Furosemide (LASIX 20MG INJ) 20 MG ONCE ONE IV (DC) Magnesium Hydroxide (MILK OF MAGNESIA) 30 ML ONCE ONE PO (DC) Ipratropium Basom (ATROVENT) 500 MCG RTQ2H PRN PRN INH [...] ASDIR PRN IV Fluticasone Propionate (Flonase Nasal [place]) 2 SPRAY DAILY NASAL (CKD) Physical Exam General appearance: alert, awake, oriented, no acute distress Neck: non-tender, no JVD Cardiovascular: CV assessment: regular rate and rhythm Respiratory: decreased breath sounds, shortness of breath, mild SOB Abdomen: soft, non-tender, normal bowel sounds, no distention Genitourinary: no flank pain, no urinary catheter Lower extremity: LE assessment: no edema Musculoskeletal: normal inspection Neuro/REWRITER: alert, oriented X 3, normal speech Skin: [...] DM, neuropathy, tobacco abuse who presented at [facility] with shortness of breath and chest pain. She was ruled for NSTEMI, had LHC which revealed multivessed CAD. She is transferred to [facility] for CABG evaluation. 1. NSTEMI/Multivessel CAD * [...] MDM by Dr. Lindquist. at 1845 RPT #:[id number] END OF REPORT [facility] 2024-11-13 13:11:00 [facility] ([facility]) Tereso/Oncology Consult Note REPORT#:[id number] REPORT STATUS: Signed REPORT INITIALIZATION DATE:11/13/24 TIME: 1310 PATIENT: YUNIER PRATT UNIT #: [id number] ROOM/BED: [place] [address] : 72 AGE: 54 SEX: F ATTEND: [...] diabetes on insulin, tobacco use presented to [facility] with complaints of chest pain. 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 Patient was transferred to [facility] for further evaluation and workup of multivessel [...] Dose Route Stop Time Status Admin Ipratropium Basom 500 MCG RTQ2H PRN PRN 11/12 1558 AC 11/13 (ATROVENT) INH 02/10 1557 0914 Nicotine 7 MG DAILY 11/11 0900 CKD 11/13 (NICODERM) TRANSDERM 11/17 0901 0827 Methocarbamol 1,000 MG Q8HR 11/10 2200 AC 11/13 (ROBAXIN) IV 11/13 215 0547 Ipratropium Basom 500 MCG RTQ4H 11/09 1700 DC 11/12 [...] 11/12 0900 AC (FERROUS SULFATE) PO 02/10 08 Clopidogrel Bisulfate 75 MG DAILY 11/10 0900 AC 11/13 (Plavix) PO 02/08 0859 0826 Cardiovascular Drugs Sig/Clarke Start time Last Medication Dose Route Stop Time Status Admin Amiodarone HCl 200 MG TID 11/09 2100 AC 11/13 (CORDARONE) PO 02/07 2059 0826 Atorvastatin Calcium 40 MG 2100 11/09 2100 AC 11/12 (LIPITOR) PO 12/09 Metoprolol Tartrate 12.5 MG Q12HR 11/09 2100 AC 11/13 (LOPRESSOR) PO 02/07 2059 0826 Nitroglycerin/ 250 ML ASDIR 11/09 1600 DC Dextrose IV 02/07 155 (NITROGLYCERIN 50,000MCG/D5W 250ML) Central Nervous System Agents Sig/Clarke Start time Last Medication Dose Route Stop Time Status Admin Quetiapine Fumarate 200 MG BEDTIME 11/11 2100 AC 11/12 (SeroqueL) PO 02/09 2059 212 Gabapentin 1,200 MG TID 11/11 1500 AC 11/13 (NEURONTIN) PO 02/09 145 0826 Hydromorphone HCl 1 MG Q4H PRN PRN 11/11 1045 AC 11/13 (DILAUDID) IV 12/12 1300 1037 Amitriptyline HCl 25 MG BEDTIME 11/10 2100 AC 11/12 (ELAVIL) PO 02/08 2059 212 Naloxone HCl 0.4 MG Q2M PRN PRN 11/10 1700 AC (NARCAN) IV 12/10 1659 Acetaminophen 1,000 MG Q6H 11/10 1600 AC 11/13 (TYLENOL EXTRA PO 02/07 1559 1037 STRENGTH) Hydromorphone HCl 4 MG Q4H PRN PRN 11/10 1545 AC 11/13 (DILAUDID) PO 12/11 1300 0824 Aspirin 81 MG DAILY 11/098 AC 11/13 (ASPIRIN) PO 02/07 215 0826 [...] 02/07 155 0353 (MAGNESIUM SULFATE 1GM/D5W 100ML) Electrolytic, Caloric, [...] DC 11/12 (LASIX 20MG INJ) IV 11/12 1816 2123 Calcium Chloride 1 GM ASDIR PRN 11/09 [...] Propionate NASAL 12/09 0859 1038 (Flonase Nasal [place]) Gastrointestinal Drugs Sig/Clarke Start time Last Medication Dose Route Stop Time Status Admin Methylnaltrexone 12 MG DAILY 11/13 0915 CKD 11/13 Basom SUBQ 11/15 0901 1038 (RELISTOR 12MG VIAL) Bisacodyl 10 MG ONCE ONE 11/13 0745 DC 11/13 (DULCOLAX) RECTAL 11/13 0746 0825 Magnesium Hydroxide 30 ML ONCE ONE 11/13 0745 DC 11/13 (MILK OF MAGNESIA) PO 11/13 0746 0825 Bisacodyl 10 MG ONCE PRN 11/11 1200 DC 11/11 (DULCOLAX) RECTAL 02/09 1159 1448 Polyethylene Glycol 17 GM DAILY 11/10 0900 AC 11/13 (MIRALAX) PO 02/08 0859 0825 Pantoprazole 40 MG DAILY@0600 11/10 0600 AC 11/13 (PROTONIX) PO 02/08 0559 0547 Docusate Sodium 100 MG BID 11/09 2100 AC 11/13 (COLACE) PO 02/07 205 0826 Sennosides 17.2 MG BEDTIME 11/09 2100 AC 11/12 (Senna Lax 8.6 MG PO 02/07 2059 212 TABLET) Ondansetron HCl 4 MG Q6H PRN PRN 11/09 1600 AC (ZOFRAN) IV 02/07 1559 Hormones And Synthetic Substit Sig/Clarke Start time Last Medication Dose Route Stop Time Status Admin Insulin Glargine 20 UNIT BID 11/13 2100 AC (Semglee) SUBQ 02/11 205 Insulin Glargine 15 UNIT BID 11/11 2100 DC 11/13 (Semglee) SUBQ 02/09 205 0824 Insulin Human Lispro 0 AC HS [...] non-tender, soft Extremities: moves all, no edema Neuro/REWRITER: alert, oriented X 3 Results Findings/Data: Laboratory [...] % (Auto) (14.0 - 32.0 %) 18.7 [place] % (Auto) (4.8 - 9.0 %) 10.6 H Eos % (Auto) (0.3 - 3.7 %) 2.8 Baso % (Auto) (0.0 - 2.0 %) 0.3 Neut # (Auto) (2.0 - 7.6 x10 3/uL) 2.66 Lymph # (Auto) (1.0 - 3.8 x10 3/uL) 0.74 L [place] # (Auto) (0.1 - 0.8 x10 3/uL) [...] post surgery acute on chronic Per MICA ([place] society of Hematology) guidelines of diagnosis and [...] and await RACHELLE testing. at 2305 RPT #:[id number] END OF REPORT [facility] 2024-11-13 09:13:00 [facility] ([facility]) Pain Management Progress Note REPORT#:[id number] REPORT STATUS: Signed REPORT INITIALIZATION DATE:11/13/24 TIME: 912 PATIENT: YUNIER PRATT UNIT #: [id number] ROOM/BED: [place] [address] : 74 AGE: 54 SEX: F ATTEND: Leyda Trotter MD ADM AUTHOR: Alejandro Cabrera NP REPT SERVICE DT/TIME: 11/13/24912 * ALL edits or amendments must be [...] 20 MG ONCE ONE IV (DC) Ipratropium Basom (ATROVENT) 500 MCG RTQ2H PRN PRN INH [...] MG TABLET) 17.2 MG BEDTIME PO Ipratropium Basom (ATROVENT) 500 MCG RTQ4H INH (DC) Acetaminophen [...] Q24H IV (DC) Fluticasone Propionate (Flonase Nasal [place]) 2 SPRAY DAILY NASAL (CKD) Physical Exam General appearance: alert, awake, oriented, conversational Head/eyes: atraumatic, EOMI, normocephalic, PERRLA ENT: moist mucosal membranes Neck: no JVD, supple/no meningismus Cardiovascular: regular rate rhythm, normal heart sounds, dressing over sternum Respiratory: clear to auscultation, aerating well, symmetric expansion Abdomen: soft, non-tender, no distention Extremities: moves all, no edema, no clubbing, no cyanosis Neuro/REWRITER: alert, oriented X 3, normal speech, CNII-XII [...] Keith who agrees with plan of care. [place] [employer] records reviewed: Total Prescriptions 6 Total Private Pay 0 Total Prescribers 4 Total Pharmacies 2 2024 2024 1 HYDROCODONE-ACETAMIN 5-325 MG 20.00 3 Pa o [id number] [facility] (191) 0 33.33 MME Comm Ins [place] 2024 2024 1 TRAMADOL-ACETAMINOPHN 37.5-325 20.00 3 Pa Tho [id number] [facility] (6321) 0 50.00 MME Comm Ins [place] 06/08/2023 06/08/2023 1 ACETAMINOPHEN-COD #3 TABLET 10.00 10 Ma Gopi [id number] [facility] ( 1132) 0 4.50 MME Comm Ins [place] [facility] (6571) [address] [facility] 050886 [facility] (1644) [address] [facility] [address] at 0926 RPT #:[id number] END OF REPORT [facility] 2024-11-13 08:57:00 [id number] [address] PATIENT NAME: YUNIER PRATT ADMIT DATE: 11/08/24 ACCOUNT NO: [id number] ROOM NO: DCCVN1 AGE: 54 REPORT TYPE: PULMONARY FUNCTION REPORT SEX: F ADMITTING PHYSICIAN:Angela Aceves DO ATTENDING PHYSICIAN:Flynn Becerra MD STUDY DATE: 11/13/2024 SPIROMETRY: FVC is 64% of predicted. FEV1 is 60% of predicted. Ratio is normal. Spirometry is very limited. Post-bronchodilator without lung volume. However, it is suggestive of interstitial lung disease. Dictated By: Jaren Grullon MD Date Dictated: 11/13/2024 08:57:46 Date Transcribed: 11/13/2024 09:00:43 /WILL Receipt ID: [id number] Authenticated by JAREN GRULLON MD On 11/30/2024 09:02:52 AM at 0902 PATIENT NAME: YUNIER PRATT [facility] 2024-11-13 08:50:00 [facility] ([facility]) Hospitalist Progress Note REPORT#:[id number] REPORT STATUS: Signed REPORT INITIALIZATION DATE:11/13/24 TIME: 0850 PATIENT: YUNIER PRATT UNIT #: [id number] ROOM/BED: 3360-1 : 72 AGE: 54 SEX: F ATTEND: Leyda Trotter MD ADM AUTHOR: Dayanara Man MD R1 REPT SERVICE DT/TIME: 11/13/24 0850 * ALL edits or amendments must be made on the electronic/computer document * Dayanara Man Z 11/13/24 0850: Subjective Chief complaint: No complaints [...] 0.9%) 100 ML ASDIR PRN IV Methylnaltrexone Basom (RELISTOR 12MG VIAL) 12 MG DAILY SUBQ (CKD) Potassium Chloride (POTASSIUM CHLORIDE 20MEQ TAB.ER) 20 MEQ ONCE ONE PO (DC) Bisacodyl (DULCOLAX) 10 MG ONCE ONE RECTAL (DC) Furosemide (LASIX 20MG INJ) 20 MG ONCE ONE IV (DC) Magnesium Hydroxide (MILK OF MAGNESIA) 30 ML ONCE ONE PO (DC) Furosemide (LASIX 20MG INJ) 20 MG ONCE ONE IV (DC) Ipratropium Basom (ATROVENT) 500 MCG RTQ2H PRN PRN INH [...] MG TABLET) 17.2 MG BEDTIME PO Ipratropium Basom (ATROVENT) 500 MCG RTQ4H INH (DC) Acetaminophen [...] Q24H IV (DC) Fluticasone Propionate (Flonase Nasal [place]) 2 SPRAY DAILY NASAL (CKD) Physical Exam Head/Eyes: atraumatic, normocephalic ENT: moist mucosal membranes, normal dentition Neck: full range of motion, supple/no meningismus Cardiovascular: normal heart sounds, regular rate rhythm, no murmur Respiratory: aerating well, clear to auscultation, symmetric expansion, no distress Abdomen: non-tender, soft, no distention, no guarding, no rebound Extremities: moves all, no edema Neuro/REWRITER: alert, oriented X 3, CNII-XII intact, no [...] % (Auto) (14.0 - 32.0 %) 18.7 [place] % (Auto) (4.8 - 9.0 %) 10.6 H Eos % (Auto) (0.3 - 3.7 %) 2.8 Baso % (Auto) (0.0 - 2.0 %) 0.3 Neut # (Auto) (2.0 - 7.6 x10 3/uL) 2.66 Lymph # (Auto) (1.0 - 3.8 x10 3/uL) 0.74 L [place] # (Auto) (0.1 - 0.8 x10 3/uL) [...] REDUCED 11/13 1129 Active PHYSICIAN CONSULT 11/13 0904 Active Consultants: cardiology, cardiovascular surgery Free Text DxA P Notes Free text DxA P notes: 54 yo F w PMHx of HTN, DM presented for evaluation of SOB and chest pain at [facility]. Patient was found to have NSTEMI. 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 Patient was transported to [facility] for CABG evaluation. Assessment and Plan Heparin [...] and plan. at 1317 at 1821 RPT #:[id number] END OF REPORT [facility] 2024-11-13 07:40:00 [facility] ([facility]) Cardiothoracic Surgery Prog REPORT#:[id number] REPORT STATUS: Signed REPORT INITIALIZATION DATE:11/13/24 TIME: 739 PATIENT: YUNIER PRATT UNIT #: [id number] ROOM/BED: [place] [address] : 72 AGE: 54 SEX: F ATTEND: Leyda Trotter MD ADM AUTHOR: Talita MonzonSKEIN DRIER REPT SERVICE DT/TIME: 11/13/24 0740 * ALL [...] 111/61 11/13 0353 B/P Mean 0.0 11/13 352 Temp 98.6 11/13 035 Pulse 77 11/13 035 Resp 11/13 0353 O2 Delivery Room air 11/12 [...] Abdomen: soft, non-tender Extremities: dry, moves all Neuro/REWRITER: alert, oriented X 3 Skin: dry, intact Current Medications Medications: Active Meds + DC'd Last 24 Hrs Furosemide (LASIX 20MG INJ) 20 MG ONCE ONE IV (DC) Ipratropium Basom (ATROVENT) 500 MCG RTQ2H PRN PRN INH [...] MG TABLET) 17.2 MG BEDTIME PO Ipratropium Basom (ATROVENT) 500 MCG RTQ4H INH (DC) Acetaminophen [...] Q24H IV (DC) Fluticasone Propionate (Flonase Nasal [place]) 2 SPRAY DAILY NASAL (CKD) Results Findings/Data: [...] % (Auto) (14.0 - 32.0 %) 18.7 [place] % (Auto) (4.8 - 9.0 %) 10.6 H Eos % (Auto) (0.3 - 3.7 %) 2.8 Baso % (Auto) (0.0 - 2.0 %) 0.3 Neut # (Auto) (2.0 - 7.6 x10 3/uL) 2.66 Lymph # (Auto) (1.0 - 3.8 x10 3/uL) 0.74 L [place] # (Auto) (0.1 - 0.8 x10 3/uL) [...] lower extremity. Impression By: Janey Pulido M.D. Results: labs reviewed, vital signs stable, nadia personally rev'd, current med profile rev'd Diagnosis, Assessment Plan Hospital course to date: This is a 54-year-old female with a past medical history of hypertension, diabetes on insulin who presented to [facility] with complaints of chest pain. She was ruled in for NSTEMI on her blood work. 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 Patient was transferred to [facility] for further evaluation and workup of multivessel [...] nurse, interdisc care team at 0753 at 0887 [facility] #:[id number] END OF REPORT [facility] 2024-11-13 07:30:00 [facility] ([facility]) Cardiology Progress Note REPORT#:[id number] REPORT STATUS: Signed REPORT INITIALIZATION DATE:11/13/24 TIME: 729 PATIENT: YUNIER PRATT UNIT #: [id number] ROOM/BED: [place] [address] : 74 AGE: 54 SEX: F ATTEND: Leyda Trotter MD ADM AUTHOR: Fay Fernandez REPT SERVICE DT/TIME: 11/13/24729 * ALL edits or amendments must be [...] 20 MG ONCE ONE IV (DC) Ipratropium Basom (ATROVENT) 500 MCG RTQ2H PRN PRN INH [...] MG TABLET) 17.2 MG BEDTIME PO Ipratropium Basom (ATROVENT) 500 MCG RTQ4H INH (DC) Acetaminophen [...] Q24H IV (DC) Fluticasone Propionate (Flonase Nasal [place]) 2 SPRAY DAILY NASAL (CKD) Physical Exam General appearance: alert, awake, oriented, no acute distress Neck: non-tender, no JVD Cardiovascular: CV assessment: regular rate and rhythm Respiratory: decreased breath sounds, shortness of breath, mild SOB Abdomen: soft, non-tender, normal bowel sounds, no distention Genitourinary: no flank pain, no urinary catheter Lower extremity: LE assessment: no edema Musculoskeletal: normal inspection Neuro/REWRITER: alert, oriented X 3, normal speech Skin: [...] % (Auto) (14.0 - 32.0 %) 18.7 [place] % (Auto) (4.8 - 9.0 %) 10.6 H Eos % (Auto) (0.3 - 3.7 %) 2.8 Baso % (Auto) (0.0 - 2.0 %) 0.3 Neut # (Auto) (2.0 - 7.6 x10 3/uL) 2.66 Lymph # (Auto) (1.0 - 3.8 x10 3/uL) 0.74 L [place] # (Auto) (0.1 - 0.8 x10 3/uL) [...] of the left lower extremity. Impression By: MitchBhupinder Pulido M.D. Results: labs reviewed, vital signs reviewed, rhythm personally rev'd Telemetry Interpretation: Sinus rhythm Diagnosis, Assessment Plan Plan discussed with: patient, collaborating MD, nurse Free Text DxA P Notes Free Text DxA P Notes: 54 YO patient with MH of HTN, DM, neuropathy, tobacco abuse who presented at [facility] with shortness of breath and chest pain. She was ruled for NSTEMI, had LHC which revealed multivessed CAD. She is transferred to [facility] for CABG evaluation. 1. NSTEMI/Multivessel CAD * [...] MDM by Dr. Lindquist. at 1523 RPT #:[id number] END OF REPORT [facility] 2024-11-12 18:06:00 [facility] Cardiology Progress Note REPORT#:[id number] REPORT STATUS: Signed REPORT INITIALIZATION DATE:11/12/24 TIME: 1805 PATIENT: YUNIER PRATT UNIT #: [id number] [address]: [address] : 74 AGE: 54 SEX: F ATTEND: Leyda Trotter MD ADM AUTHOR: Fay FernandezCNSaad REPT SERVICE DT/TIME: 11/12/24 1806 * ALL edits or amendments must be [...] Meds + DC'd Last 24 Hrs Ipratropium Basom (ATROVENT) 500 MCG RTQ2H PRN PRN INH [...] MG TABLET) 17.2 MG BEDTIME PO Ipratropium Basom (ATROVENT) 500 MCG RTQ4H INH (DC) Acetaminophen [...] ML Q24H IV Fluticasone Propionate (Flonase Nasal [place]) 2 SPRAY DAILY NASAL (CKD) Physical Exam General appearance: alert, awake, oriented, no acute distress Neck: non-tender, no JVD Cardiovascular: CV assessment: regular rate and rhythm Respiratory: decreased breath sounds, no distress Abdomen: soft, non-tender, normal bowel sounds, no distention Genitourinary: no flank pain, no urinary catheter Lower extremity: LE assessment: no edema Musculoskeletal: normal inspection Neuro/REWRITER: alert, oriented X 3, normal speech Skin: [...] % (Auto) (14.0 - 32.0 %) 16.7 [place] % (Auto) (4.8 - 9.0 %) 8.9 [place] % (Auto) (0.3 - 3.7 %) 2.1 Baso % (Auto) (0.0 - 2.0 %) 0.4 Neut # (Auto) (2.0 - 7.6 x10 3/uL) 5.38 Lymph # (Auto) (1.0 - 3.8 x10 3/uL) 1.26 [place] # (Auto) (0.1 - 0.8 x10 3/uL) [...] DM, neuropathy, tobacco abuse who presented at [facility] with shortness of breath and chest pain. She was ruled for NSTEMI, had LHC which revealed multivessed CAD. She is transferred to [facility] for CABG evaluation. 1. NSTEMI/Multivessel CAD * [...] MDM by Dr. Lindquist. at 1810 RPT #:[id number] END OF REPORT [facility] 2024-11-12 09:25:00 [facility] Pain Management Progress Note REPORT#:[id number] REPORT STATUS: Signed REPORT INITIALIZATION DATE:11/12/24 TIME: 924 PATIENT: YUNIER PRATT UNIT #: [id number] ROOM/BED: [place] [address] : 72 AGE: 54 SEX: F ATTEND: Alejandro Bay MD ADM AUTHOR: Alejandro Cabrera PERSONAL INJURY SPECIALIST REPT SERVICE DT/TIME: 11/12/24924 * ALL edits [...] Meds + DC'd Last 24 Hrs Ipratropium Basom (ATROVENT) 500 MCG RTQ2H PRN PRN INH [...] MG TABLET) 17.2 MG BEDTIME PO Ipratropium Basom (ATROVENT) 500 MCG RTQ4H INH Acetaminophen (TYLENOL) [...] ML Q24H IV Fluticasone Propionate (Flonase Nasal [place]) 2 SPRAY DAILY NASAL (CKD) Physical Exam General appearance: alert, awake, oriented, no acute distress Head/eyes: atraumatic, EOMI, normocephalic, PERRLA ENT: moist mucosal membranes Neck: no JVD, supple/no meningismus Cardiovascular: regular rate rhythm, normal heart sounds, dressing over sternum Respiratory: clear to auscultation, aerating well, symmetric expansion Abdomen: soft, non-tender, no distention Extremities: moves all, no edema, no clubbing, no cyanosis Neuro/REWRITER: alert, oriented X 3, normal speech, CNII-XII grossly intact Skin: dry, warm Psychiatry: normal affect, normal judgment/insight, normal mood Results Findings/data: Laboratory Tests: 11/12 11/12 11/12 11/11 0902 0549 0342 2345 Chemistry Sodium (134 - 147 mEq/L) [...] % (Auto) (14.0 - 32.0 %) 16.7 [place] % (Auto) (4.8 - 9.0 %) 8.9 Eos % (Auto) (0.3 - 3.7 %) 2.1 Baso % (Auto) (0.0 - 2.0 %) 0.4 Neut # (Auto) (2.0 - 7.6 x10 3/uL) 5.38 Lymph # (Auto) (1.0 - 3.8 x10 3/uL) 1.26 [place] # (Auto) (0.1 - 0.8 x10 3/uL) [...] Keith who agrees with plan of care. [place] [employer] records reviewed: Total Prescriptions 6 Total Private Pay 0 Total Prescribers 4 Total Pharmacies 2 2024 2024 1 HYDROCODONE-ACETAMIN 5-325 MG 20.00 3 Pa o [id number] [facility] (1910) 0 33.33 MME Comm Ins [place] 2024 2024 1 TRAMADOL-ACETAMINOPHN 37.5-325 20.00 3 Pa Tho [id number] [facility] (6575) 0 50.00 MME Comm Ins [place] 06/08/2023 06/08/2023 1 ACETAMINOPHEN-COD #3 TABLET 10.00 10 Ma Gopi 111300 [facility] ( 5895) 0 4.50 [place] Comm [place] [facility] [place] (1910) [address] [place] [address] [facility] (5755) [address] [facility] [address] at 1147 RPT #:[id number] END OF REPORT [facility] 2024-11-12 08:31:[address] [facility]) Hospitalist Progress Note REPORT#:[id number] REPORT STATUS: Signed REPORT INITIALIZATION DATE:11/12/24 TIME: 830 PATIENT: YUNIER PRATT UNIT #: [id number] ROOM/BED: [place] [address] : 72 AGE: 54 SEX: F ATTEND: [...] 94 11/11 2014 91 135/65 93 100 11/11 2000 17 11/11 2000 37.6 11/11 1959 96 Room air 11/11 [...] Meds + DC'd Last 24 Hrs Ipratropium Basom (ATROVENT) 500 MCG RTQ2H PRN PRN INH [...] MG TABLET) 17.2 MG BEDTIME PO Ipratropium Basom (ATROVENT) 500 MCG RTQ4H INH Acetaminophen (TYLENOL) [...] ML Q24H IV Fluticasone Propionate (Flonase Nasal [place]) 2 SPRAY DAILY NASAL (CKD) Physical Exam Head/Eyes: atraumatic, normocephalic ENT: moist mucosal membranes, normal dentition Neck: full range of motion, supple/no meningismus Cardiovascular: normal heart sounds, regular rate rhythm, no murmur Respiratory: aerating well, clear to auscultation, symmetric expansion, no distress Abdomen: non-tender, soft, no distention, no guarding, no rebound Extremities: moves all, no edema Neuro/REWRITER: alert, oriented X 3, CNII-XII intact, no [...] evaluation of SOB and chest pain at [facility]. Patient was found to have NSTEMI. 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 Patient was transported to [facility] for CABG evaluation. Assessment and Plan NSTEMI [...] findings and plan. at 1912 at 1959 RPT #:[id number] END OF REPORT [facility] 2024-11-12 08:01:00 [facility] Critical Care Progress Note REPORT#:[id number] REPORT STATUS: Signed REPORT INITIALIZATION DATE:11/12/24 TIME: 08 PATIENT: YUNIER PRATT UNIT #: [id number] ROOM/BED: [place] [address] : 72 AGE: 54 SEX: F ATTEND: Alejandro Bay MD ADM AUTHOR: Jean Claude Smith MD REPT SERVICE DT/TIME: 11/12/24 0801 * ALL edits or amendments must be made on the electronic/computer document * Subjective Chief complaint: CP, SOB HPI: 52-year-old female with significant history of hypertension diabetes diabetic neuropathy history of CAD tobacco use who presented to an outside facility [facility] complaining of shortness of breath or chest pain. Diagnosed with elevated troponins and NSTEMI. Cardiac cath showed multivessel disease. Patient was transferred to [facility] for surgical vascularization evaluation. Patient today underwent [...] Meds + DC'd Last 24 Hrs Ipratropium Basom (ATROVENT) 500 MCG RTQ2H PRN PRN INH [...] MG TABLET) 17.2 MG BEDTIME PO Ipratropium Basom (ATROVENT) 500 MCG RTQ4H INH Acetaminophen (TYLENOL) [...] ML Q24H IV Fluticasone Propionate (Flonase Nasal [place]) 2 SPRAY DAILY NASAL (CKD) Physical Exam Head/eyes: EOMI, PERRLA ENT: moist mucosal membranes Neck: non-tender, no JVD Cardiovascular: normal capillary refill, normal heart sounds Respiratory: decreased breath sounds, symmetric expansion, no distress Abdomen: soft, non-tender, no guarding Extremities: moves all, normal capillary refill Neuro/REWRITER: CNII-XII intact, normal speech, reflexes equal bilat, [...] % (Auto) (14.0 - 32.0 %) 16.7 [place] % (Auto) (4.8 - 9.0 %) 8.9 Eos % (Auto) (0.3 - 3.7 %) 2.1 Baso % (Auto) (0.0 - 2.0 %) 0.4 Neut # (Auto) (2.0 - 7.6 x10 3/uL) 5.38 Lymph # (Auto) (1.0 - 3.8 x10 3/uL) 1.26 [place] # (Auto) (0.1 - 0.8 x10 3/uL) [...] transfer to the floor Plan Transfer to CVN 1 Continue telemetry Advance diet as tolerated [...] care time: Minutes: 35 at 0823 RPT #:[id number] END OF REPORT [facility] 2024-11-12 07:51:00 [facility] Cardiothoracic Surgery Prog REPORT#:[id number] REPORT STATUS: Signed REPORT INITIALIZATION DATE:11/12/24 TIME: 750 PATIENT: YUNIER PRATT UNIT #: [id number] ROOM/BED: [place] [address] : 72 AGE: 54 SEX: F ATTEND: Leyda Trotter MD ADM AUTHOR: Elise Harvey Physic REPT SERVICE DT/TIME: 11/12/24750 * ALL edits or amendments must be [...] Abdomen: soft, non-tender Extremities: dry, moves all Neuro/REWRITER: alert, oriented X 3 Skin: dry, intact Diagnosis, Assessment Plan Hospital course to date: This is a 54-year-old female with a past medical history of hypertension, diabetes on insulin who presented to [facility] with complaints of chest pain. She was ruled in for NSTEMI on her blood work. 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 Patient was transferred to [facility] for further evaluation and workup of multivessel [...] cardiovascular surgery at 1717 at 0834 RPT #:[id number] END OF REPORT [facility] 2024-11-11 15:50:00 [facility] ([facility] Cardiology Progress Note REPORT#:[id number] REPORT STATUS: Signed REPORT INITIALIZATION DATE:11/11/24 TIME: 1550 PATIENT: YUNIER PRATT UNIT #: [id number] ROOM/BED: [place] [address] : 72 AGE: 54 SEX: F ATTEND: [...] Meds + DC'd Last 24 Hrs Ipratropium Basom (ATROVENT) 500 MCG RTQ2H PRN PRN INH [...] MG TABLET) 17.2 MG BEDTIME PO Ipratropium Basom (ATROVENT) 500 MCG RTQ4H INH Acetaminophen (TYLENOL) [...] ML Q24H IV Fluticasone Propionate (Flonase Nasal [place]) 2 SPRAY DAILY NASAL (CKD) Physical Exam General appearance: alert, awake Neck: non-tender, no JVD Cardiovascular: CV assessment: pedal edema, regular rate and rhythm Respiratory: decreased breath sounds, no distress Abdomen: soft, non-tender, normal bowel sounds, no distention Genitourinary: no flank pain, no urinary catheter Lower extremity: LE assessment: edema Musculoskeletal: normal inspection Neuro/REWRITER: alert, oriented X 3, normal speech Skin: [...] (Auto) (14.0 - 32.0 %) 12.2 L [place] % (Auto) (4.8 - 9.0 %) 9.9 H Eos % (Auto) (0.3 - 3.7 %) 1.9 Baso % (Auto) (0.0 - 2.0 %) 0.4 Neut # (Auto) (2.0 - 7.6 x10 3/uL) 8.36 H Lymph # (Auto) (1.0 - 3.8 x10 3/uL) 1.35 [place] # (Auto) (0.1 - 0.8 x10 3/uL) [...] Report Impression - Status: SIGNED Entered: 11/11/2024 4604 IMPRESSION: 1. No significant change. Impression By: Alexa - Remberto Pfeiffer M.D. Results: labs reviewed, vital signs reviewed, rhythm personally rev'd Diagnosis, Assessment Plan Plan discussed with: patient, family, collaborating MD, nurse Free Text DxA P Notes Free Text DxA P Notes: 54 YO patient with MH of HTN, DM, neuropathy, tobacco abuse who presented at [facility] with shortness of breath and chest pain. She was ruled for NSTEMI, had LHC which revealed multivessed CAD. She is transferred to [facility] for CABG evaluation. 1. NSTEMI/Multivessel CAD * Echo LVEF 50-54%, G1DD, mild MR * Plavix ASA, BB, statin * S/p CABG (ASH-LAD, SVG-OM1, SVG-OM2, SVG-Diag, SVG-PDA) and ALAA 2. Hypertension * BP stable, continue BB. 3. Diabetes mellitus * A1c 8 * manage per CTS 4. Acute Diastolic CHF, present to admission * LVEF 50-54% MDM by Dr. Lindquist. at 0725 RPT #:[id number] END OF REPORT [facility] 2024-11-11 14:34:00 [facility] Hospitalist Progress Note REPORT#:[id number] REPORT STATUS: Signed REPORT INITIALIZATION DATE:11/11/24 TIME: 1433 PATIENT: YUNIER PRATT UNIT #: [id number] ROOM/BED: [place] [address] : 72 AGE: 54 SEX: F ATTEND: Alejandro Bay MD ADM AUTHOR: Alejandro Bay MD REPT SERVICE DT/TIME: 11/11/24 1434 * ALL edits or amendments must be [...] 73 15 129/63 90 100 Room air 11/11 0000 73 15 129/63 90 100 11/10 2300 71 21 123/63 88 96 11/10 2200 73 26 122/61 86 95 11/10 2112 28 121/59 83 91 11/11 1999 98.9 79 25 143/65 93 97 Room air 11/10 2000 79 25 143/65 93 97 11/10 1959 96 Room air 11/10 1900 78 30 [...] no rebound Extremities: moves all, no edema Neuro/REWRITER: alert, oriented X 3, CNII-XII intact, no motor deficits, no sensory deficits Skin: dry, intact, no rash Psychiatry: normal affect, normal mood Results Radiology data: Laboratory Tests 11/11/24 0321: [Embedded Image Not Available] 11/10/24 0124: [Embedded Image Not Available] 11/09/24 1757: [Embedded Image Not Available] Current Medications Sig/Clarke Start time Last Medication Dose Route Stop Time Status Admin Ipratropium Basom 500 MCG RTQ2H PRN PRN 11/12 1558 [...] 0859 0807 Nicotine 7 MG DAILY 11/11 0900 CKD 11/11 TRANSDERM 11/17 0901 1011 Methocarbamol [...] 1411 Clopidogrel Bisulfate 75 MG DAILY 11/10 0900 AC 11/11 PO 02/08 0859 0807 Gabapentin 600 MG BID 11/10 0900 DC 11/10 PO 02/08 0859 2003 Methocarbamol 500 MG TID 11/10 0900 DC 11/10 PO 02/08 0859 1411 Polyethylene Glycol 17 GM DAILY 11/10 0900 AC 11/11 PO 02/08 0859 0806 Pantoprazole 40 MG DAILY@0600 11/10 0600 AC 11/11 PO 02/08 0559 0600 Oxycodone HCl 10 MG Q6H PRN PRN 11/09 2330 DC 11/10 PO 11/14 2329 1009 Aspirin 81 MG DAILY 11/09 2157 AC 11/11 PO 02/07 215 0808 Amiodarone HCl 200 MG TID 11/09 2100 AC 11/11 PO 02/07 2059 0807 Atorvastatin Calcium 40 MG 2100 11/09 2100 AC 11/10 PO 12/09 Docusate Sodium 100 MG BID 11/09 2100 AC 11/11 PO 02/07 2059 0807 Metoprolol Tartrate 12.5 MG Q12HR 11/09 2100 AC 11/11 PO 02/07 2059 0807 Mupirocin 1 APPLIC BID 11/09 2100 AC 11/11 NASAL 11/14 0901 0806 Sennosides 17.2 MG BEDTIME 11/09 2100 AC 11/10 PO 02/07 Ipratropium Basom 500 MCG RTQ4H 11/09 1700 AC 11/11 [...] PRN 11/09 1600 AC IV 02/07 1559 Potassium Chloride 100 ML ASDIR PRN 11/09 1600 AC IV 02/07 1559 Sodium Bicarbonate 50 MEQ ASDIR PRN 11/09 1600 AC IV 02/07 1559 Sodium Chloride 250 ML Q24H 11/09 1600 AC IV 02/07 1559 Fluticasone 2 SPRAY DAILY 11/09 0900 CKD 11/11 Propionate NASAL 12/09 0859 0806 Laboratory Tests: 11/11 11/11 11/11 11/10 1045 0745 0321 [...] (Auto) (14.0 - 32.0 %) 12.2 L [place] % (Auto) (4.8 - 9.0 %) 9.9 H Eos % (Auto) (0.3 - 3.7 %) 1.9 Baso % (Auto) (0.0 - 2.0 %) 0.4 Neut # (Auto) (2.0 - 7.6 x10 3/uL) 8.36 H Lymph # (Auto) (1.0 - 3.8 x10 3/uL) 1.35 [place] # (Auto) (0.1 - 0.8 x10 3/uL) [...] RADIOLOGY - XR CHEST 1 V 11/11 9533 Report Impression - Status: SIGNED Entered: 11/11/2024 1353 IMPRESSION: 1. No significant change. Impression By: Alexa Pfeiffer M.D. Diagnosis, Assessment Plan Hospital course [...] evaluation of SOB and chest pain at [facility]. Patient was found to have NSTEMI. 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 Patient was transported to [facility] for CABG evaluation. Assessment and Plan NSTEMI Multivessel Coronary Artery Disease - s/p CABG 3 - POD #2. History of Essential Hypertension [...] CABG...out of icu transfer at 1439 RPT #:[id number] END OF REPORT [facility] 2024-11-11 12:23:00 [facility] ([facility]) Cardiothoracic Surgery Prog REPORT#:[id number] REPORT STATUS: Signed REPORT INITIALIZATION DATE:11/11/24 TIME: 1223 PATIENT: YUNIER PRATT UNIT #: [id number] ROOM/BED: 3360-1 : 72 AGE: 54 SEX: [...] Abdomen: soft, non-tender Extremities: dry, moves all Neuro/REWRITER: alert, oriented X 3 Skin: dry, intact Diagnosis, Assessment Plan Hospital course to date: This is a 54-year-old female with a past medical history of hypertension, diabetes on insulin who presented to [facility] with complaints of chest pain. She was ruled in for NSTEMI on her blood work. 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 Patient was transferred to [facility] for further evaluation and workup of multivessel [...] Consultants: cardiology, cardiovascular surgery at 1228 at 0833 RPT #:[id number] END OF REPORT [facility] 2024-11-11 09:32:00 [facility] ([facility]) Pain Management Progress Note REPORT#:[id number] REPORT STATUS: Signed REPORT INITIALIZATION DATE:11/11/24 TIME: 931 PATIENT: YUNIER PRATT UNIT #: [id number] ROOM/BED: [place] [address] : 72 AGE: 54 SEX: F ATTEND: Alejandro Bay MD ADM AUTHOR: Alejandro Cabrera PERSONAL INJURY SPECIALIST REPT SERVICE DT/TIME: 11/11/24 0932 * ALL edits or amendments must be [...] Meds + DC'd Last 24 Hrs Ipratropium Basom (ATROVENT) 500 MCG RTQ2H PRN PRN INH [...] MG TABLET) 17.2 MG BEDTIME PO Ipratropium Basom (ATROVENT) 500 MCG RTQ4H INH Acetaminophen (TYLENOL) [...] ML Q24H IV Fluticasone Propionate (Flonase Nasal [place]) 2 SPRAY DAILY NASAL (CKD) Physical Exam General appearance: alert, awake, oriented, no respiratory distress Head/eyes: atraumatic, EOMI, normocephalic, PERRLA ENT: moist mucosal membranes Neck: no JVD, supple/no meningismus Cardiovascular: regular rate rhythm, normal heart sounds, dressing over sternum Respiratory: clear to auscultation, aerating well, symmetric expansion Abdomen: soft, non-tender, no distention Extremities: moves all, no edema, no clubbing, no cyanosis Neuro/REWRITER: alert, oriented X 3, normal speech, CNII-XII [...] (Auto) (14.0 - 32.0 %) 12.2 L [place] % (Auto) (4.8 - 9.0 %) 9.9 H Eos % (Auto) (0.3 - 3.7 %) 1.9 Baso % (Auto) (0.0 - 2.0 %) 0.4 Neut # (Auto) (2.0 - 7.6 x10 3/uL) 8.36 H Lymph # (Auto) (1.0 - 3.8 x10 3/uL) 1.35 [place] # (Auto) (0.1 - 0.8 x10 3/uL) [...] Keith who agrees with plan of care. [place] [employer] records reviewed: Total Prescriptions 6 Total Private Pay 0 Total Prescribers 4 Total Pharmacies 2 2024 2024 1 [facility]AM[facility] 5-325 [facility]00 [id number] (1910) 0 33.33 M[place] Comm Ins [place] 2024 2024 1 TRAMADOL-ACETAMINOPHN 37.5-325 20.00 3 Pa o [id number] [facility] (1292) 0 50.00 MME Comm Ins [place] 06/08/2023 06/08/2023 1 ACETAMINOPHEN-COD #3 TABLET 10.00 10 Ma Gopi [id number] [facility] ( 1185) 0 4.50 MME Comm Ins [place] [employer]. (1910) [address] [place] [address] [facility]707 ([address]) [address] [place] [address] at 1142 [facility] #:[id number] END OF REPORT [facility] 2024-11-11 06:53:00 [facility] Critical Care Progress Note REPORT#:[id number] REPORT STATUS: Signed REPORT INITIALIZATION DATE:11/11/24 TIME: 652 PATIENT: YUNIER PRATT UNIT #: [id number] ROOM/BED: [place] [address] : 72 AGE: 54 SEX: F ATTEND: Alejandro Bay MD ADM AUTHOR: Jean Claude Smith MD REPT SERVICE DT/TIME: 11/11/24 0653 * ALL edits or amendments must be made on the electronic/computer document * Subjective Chief complaint: CP, SOB HPI: 52-year-old female with significant history of hypertension diabetes diabetic neuropathy history of CAD tobacco use who presented to an outside facility [facility] complaining of shortness of breath or chest pain. Diagnosed with elevated troponins and NSTEMI. Cardiac cath showed multivessel disease. Patient was transferred to [facility] for surgical vascularization evaluation. Patient today underwent [...] Meds + DC'd Last 24 Hrs Ipratropium Basom (ATROVENT) 500 MCG RTQ2H PRN PRN INH [...] MG TABLET) 17.2 MG BEDTIME PO Ipratropium Basom (ATROVENT) 500 MCG RTQ4H INH Acetaminophen (TYLENOL) [...] ML Q24H IV Fluticasone Propionate (Flonase Nasal [place]) 2 SPRAY DAILY NASAL (CKD) Physical Exam Head/eyes: EOMI, PERRLA ENT: moist mucosal membranes Neck: non-tender, no JVD Cardiovascular: normal capillary refill, normal heart sounds Respiratory: decreased breath sounds, prolonged exp phase, symmetric expansion, no distress Abdomen: soft, non-tender, no guarding Extremities: moves all, normal capillary refill Neuro/REWRITER: CNII-XII intact, normal speech, reflexes equal bilat, [...] (Auto) (14.0 - 32.0 %) 12.2 L [place] % (Auto) (4.8 - 9.0 %) 9.9 H Eos % (Auto) (0.3 - 3.7 %) 1.9 Baso % (Auto) (0.0 - 2.0 %) 0.4 Neut # (Auto) (2.0 - 7.6 x10 3/uL) 8.36 H Lymph # (Auto) (1.0 - 3.8 x10 3/uL) 1.35 [place] # (Auto) (0.1 - 0.8 x10 3/uL) [...] 0321: [Embedded Image Not Available] Microbiology: 11/08 1554 NASAL: MSSA Surveillance Screen - ORD 11/08 1554 NASAL: MRSA DNA Surveillance Screen - ORD [...] care time: Minutes: 35 at 0839 RPT #:[id number] END OF REPORT [facility] 2024-11-11 04:08:00 [id number] [place] [address] PATIENT NAME: YUNIER PRATT ADMIT DATE: 11/08/24 ACCOUNT NO: [id number] ROOM NO: [facility] AGE: 54 REPORT TYPE: eELECTROCARDIOGRAM REPORT SEX: F ADMITTING PHYSICIAN:Angela Aceves DO ATTENDING PHYSICIAN:Flynn Becerra MD Order: [id number] Test Reason : CABG POD 2 Test [...] at 1321 PATIENT NAME: YUNIER PRATT [facility] 2024-11-10 15:37:00 [facility] ([facility]) Pain Management Consult Note REPORT#:[id number] REPORT STATUS: Signed REPORT INITIALIZATION DATE:11/10/24 TIME: 1536 PATIENT: YUNIER PRATT UNIT #: [id number] ROOM/BED: [place] [address] : 72 AGE: 54 SEX: F ATTEND: Alejandro Bay MD ADM AUTHOR: Alejandro Cabrera PERSONAL INJURY SPECIALIST REPT SERVICE DT/TIME: 11/10/24 1537 * ALL edits or amendments must be [...] Dose Route Stop Time Status Admin Ipratropium Basom 500 MCG RTQ2H PRN PRN 11/12 1558 AC (ATROVENT) INH 02/10 1557 Methocarbamol 1,000 MG Q8HR 11/10 2200 AC (ROBAXIN) IV 11/13 2159 Methocarbamol 500 MG TID 11/10 0900 DC 11/10 (ROBAXIN) PO 02/08 0859 1411 Methocarbamol 1,000 MG ONCE ONE 11/09 2145 DC 11/09 (ROBAXIN) IV 11/09 2146 2148 Ipratropium Basom 500 MCG RTQ4H 11/09 1700 AC 11/10 (ATROVENT) INH 02/07 1659 1147 Ephedrine Sulfate 0 .STK-MED ONE 11/09 1643 DC (ePHEDrine sulfate) .ROUTE Epinephrine 4 MG ASDIR 11/09 1600 AC (ADRENALIN CHLORIDE) IV 02/07 1559 Dextrose/Water 246 ML (DEXTROSE 5% WATER) Norepinephrine/ 250 ML TITRATE 11/09 1600 AC Dextrose IV 02/07 1559 (Norepinephrine 8 MG/ D5W 250 mL) Rocuronium Basom 0 .STK-MED ONE 11/09 1554 DC (ZEMURON) IV Nicotine 21 MG DAILY 11/08 0900 DC 11/08 (NICODERM) TRANSDERM 02/06 0859 0916 Blood Derivatives Sig/Clarke Start time Last Medication Dose Route Stop Time Status Admin Albumin Human 250 ML ONCE ONE 11/09 2130 DC 11/09 (ALBUMINAR 5% 12.5GM/ IV 11/09 2159 2130 250ML) Albumin Human 25 GM ASDIR [...] Admin Amiodarone HCl 200 MG TID 11/09 2100 AC 11/10 (CORDARONE) PO 02/07 2059 1410 Atorvastatin Calcium 40 MG 2100 11/09 2100 AC 11/09 (LIPITOR) PO 12/09 Metoprolol Tartrate 12.5 MG Q12HR 11/09 2100 AC 11/10 (LOPRESSOR) PO 02/07 2059 0804 Nicardipine HCl 0 .STK-MED ONE 11/09 [...] MG Q6H PRN PRN 11/08 1945 DC (APRESOLINE) IV 02/06 194 Carvedilol 6.25 [...] 215 0804 Gabapentin 300 MG TID 11/09 2100 DC 11/09 (NEURONTIN) PO 02/07 Quetiapine Fumarate 200 MG BEDTIME 11/09 2099 DC (SeroqueL) PO 02/07 2059 Fentanyl Citrate 25 MCG ONCE ONE 11/09 2045 DC 11/09 (SUBLIMAZE) IV 11/09 204 204 Acetaminophen 100 ML Q6H 11/09 1845 DC 11/09 (OFIRMEV 10MG/ML) IV 11/10 0659 1937 Fentanyl Citrate 0 .STK-MED ONE 11/09 1825 DC (SUBLIMAZE) .ROUTE Ketorolac 0 .STK-MED ONE [...] 0230 DC (DEXTROSE 10% IN IV 02/06 0229 WATER) Dextrose/Water 250 ML ASDIR PRN 11/08 0230 DC (DEXTROSE 10% IN IV 02/06 022 WATER) Eye, Ear, Nose And Throat (Een Sig/Clarke Start time Last Medication Dose Route Stop Time Status Admin Fluticasone 2 SPRAY DAILY 11/09 0900 CKD 11/10 Propionate NASAL 12/09 0859 0804 (Flonase Nasal [place]) Gastrointestinal Drugs Sig/Clarke Start time Last Medication [...] PO 02/08 0859 0805 Pantoprazole 40 MG DAILY@00 11/10 0600 AC 11/10 (PROTONIX) PO 02/08 [...] PRN 11/08 0230 DC (ZOFRAN) IV 02/06 0229 Hormones And Synthetic Substit Sig/Clarke Start time [...] all, no edema, no clubbing, no cyanosis Neuro/REWRITER: alert, oriented X 3, normal speech, CNII-XII [...] H 11/10 11/10 11/09 11/09 0124 0013 2409 0309 Blood Gas Puncture Site Art Line O2 [...] (Auto) (14.0 - 32.0 %) 4.9 L [place] % (Auto) (4.8 - 9.0 %) 5.4 Eos % (Auto) (0.3 - 3.7 %) 0.0 L Baso % (Auto) (0.0 - 2.0 %) 0.1 Neut # (Auto) (2.0 - 7.6 x10 3/uL) 10.11 H Lymph # (Auto) (1.0 - 3.8 x10 3/uL) 0.56 L [place] # (Auto) (0.1 - 0.8 x10 3/uL) [...] INR (0.8 - 1.2) 1.4 H PTT ([place]) (25.0 - 39.5 Seconds) 25.1 PT Patient/Control [...] (Auto) (14.0 - 32.0 %) 6.1 L [place] % (Auto) (4.8 - 9.0 %) 4.6 L Eos % (Auto) (0.3 - 3.7 %) 0.8 Baso % (Auto) (0.0 - 2.0 %) 0.3 Neut # (Auto) (2.0 - 7.6 x10 3/uL) 15.97 H Lymph # (Auto) (1.0 - 3.8 x10 3/uL) 1.12 [place] # (Auto) (0.1 - 0.8 x10 3/uL) [...] 1909 Report Impression - Status: SIGNED Entered: 11/09/2024 1923 IMPRESSION: Patient status post CABG. No pneumothorax. There is a right IJ line identified and probable mediastinal drain . Mild fluid overload appearing improved to the preoperative exam Impression By: [email or web address] - Terra Menchaca M.D. RADIOLOGY - XR CHEST 1 V 11/10 0624 Report Impression - Status: SIGNED Entered: 11/10/2024 [...] -Senna 2tabs at bedtime Disposition: Rx: Pharmacy: [facility] Past medical [...] Keith who agrees with plan of care. [place] [employer] records reviewed: Total Prescriptions 6 Total Private Pay 0 Total Prescribers 4 Total Pharmacies 2 2024 2024 1 HYDROCODONE-ACETAMIN 5-325 MG 20.00 3 [facility] [id number] [facility] (1910) 0 33.33 MME Comm Ins [place] 2024 2024 1 TRAMADOL-ACETAMINOPHN 37.5-325 20.00 3 Pa [place]o [id number] [facility] (5) 0 50.00 MME Comm Ins [place] 06/08/2023 06/08/2023 1 ACETAMINOPHEN-COD #3 TABLET 10.00 10 Ma Gopi [id number] [facility] ( 6905) 0 4.50 M[place] [facility] [place] [facility] (1910) [address] [facility] [id number] [facility]707 (3749) [address] [facility] [address] at 0932 RPT #:[id number] END OF REPORT [facility] 2024-11-10 13:28:00 [facility] Hospitalist Progress Note REPORT#:[id number] REPORT STATUS: Signed REPORT INITIALIZATION DATE:11/10/24 TIME: 1327 PATIENT: YUNIER PRATT UNIT #: [id number] ROOM/BED: [place] [address] : 74 AGE: 54 SEX: F ATTEND: [...] 21 100/57 74 100 11/09 2000 98.1 11/09 2000 BiPAP 40 11/10 1999 98.4 75 14 [...] no rebound Extremities: moves all, no edema Neuro/REWRITER: alert, oriented X 3, CNII-XII intact, no motor deficits, no sensory deficits Skin: dry, intact, no rash Psychiatry: normal affect, normal mood Results Radiology data: Laboratory Tests 11/10/24 0124: [Embedded Image Not Available] 11/09/24 1757: [Embedded Image Not Available] 11/09/24 0137: [Embedded Image Not Available] Current Medications Sig/Clarke Start time Last Medication Dose Route Stop Time Status Admin Ipratropium Basom 500 MCG RTQ2H PRN PRN 11/12 1558 [...] .ROUTE Clopidogrel Bisulfate 75 MG DAILY 11/10 09 AC 11/10 PO 02/08 0859 0805 Famotidine 20 MG DAILY 11/10 0900 DC PO 02/08 0859 Gabapentin 600 MG BID 11/10 0900 AC 11/10 PO 02/08 0859 0806 Methocarbamol 500 MG TID 11/10 09 AC 11/10 PO 02/08 0859 0806 Polyethylene [...] DAILY 11/09 2158 AC 11/10 PO 02/07 215 0804 Methocarbamol 1,000 MG ONCE ONE 11/09 2145 DC 11/09 IV 11/09 214 2148 Albumin Human 250 ML ONCE ONE 11/090 DC 11/09 IV 11/09 2158 213 Amiodarone HCl 200 MG TID 11/09 2099 AC 11/10 PO 02/07 2059 0805 Atorvastatin Calcium 40 MG 2100 11/09 2099 AC 11/09 PO 12/09 Docusate Sodium 100 MG BID 11/09 2099 AC 11/10 PO 02/07 2059 0804 Gabapentin 300 MG TID 11/09 2100 DC 11/09 PO 02/07 Metoprolol Tartrate 12.5 MG Q12HR 11/09 2099 AC 11/10 PO 02/07 2059 0804 Mupirocin 1 APPLIC BID 11/09 2099 AC 11/10 NASAL 11/14 0901 0803 Quetiapine Fumarate 200 MG BEDTIME 11/09 2099 DC PO 02/07 2059 Sennosides 17.2 MG BEDTIME 11/09 2099 AC 11/09 PO 02/07 Fentanyl Citrate 25 MCG ONCE ONE 11/09 204 DC 11/09 IV 11/09 2045 204 Acetaminophen 100 ML Q6H 11/09 1845 DC [...] .STK-MED ONE 11/09 1722 DC IV Ipratropium Basom 500 MCG RTQ4H 11/09 1700 AC 11/10 [...] 11/09 1600 AC IV 02/07 1559 Rocuronium Basom 0 .STK-MED ONE 11/09 1554 DC IV [...] Q4H PRN PRN 11/08 0230 DC PO 06/18 0229 Dextrose/Water 125 ML ASDIR PRN 11/08 229 DC IV 02/06 229 Dextrose/Water 250 ML ASDIR PRN 11/08 229 DC IV 02/06 229 Glucagon 1 MG ASDIR PRN 11/08 229 DC IM 02/06 229 Heparin Sodium 500 ML ASDIR 11/08 023 DC 11/09 (Porcine) IV 02/06 229 0508 Hydrocodone Bitart/ 1 TAB Q6H PRN PRN 11/08 229 DC 11/09 Acetaminophen PO 11/13 228 0459 Morphine Sulfate 2 MG Q4H PRN PRN 11/08 229 DC IV 11/13 228 Ondansetron HCl 4 MG Q4H PRN PRN 11/08 229 DC IV 02/06 229 Laboratory Tests: 11/10 [...] H 11/10 11/10 11/09 11/09 0124 0013 7402 2574 Blood Gas Puncture Site Art Line O2 [...] (Auto) (14.0 - 32.0 %) 4.9 L [place] % (Auto) (4.8 - 9.0 %) 5.4 Eos % (Auto) (0.3 - 3.7 %) 0.0 L Baso % (Auto) (0.0 - 2.0 %) 0.1 Neut # (Auto) (2.0 - 7.6 x10 3/uL) 10.11 H Lymph # (Auto) (1.0 - 3.8 x10 3/uL) 0.56 L [place] # (Auto) (0.1 - 0.8 x10 3/uL) [...] 99 L Plt Morphology Comment NORMAL 11/09 194 Blood Gas Puncture Site Art Line O2 [...] INR (0.8 - 1.2) 1.3 H PTT (Titus) (25.0 - 39.5 Seconds) 26.6 PT Patient/Control [...] 581 mg/dL) 348.5 11/09 11/09 11/09 1836 3001 1742 Blood Gas Puncture Site Art Line [...] INR (0.8 - 1.2) 1.4 H PTT (Dalton) (25.0 - 39.5 Seconds) 25.1 PT Patient/Control [...] (Auto) (14.0 - 32.0 %) 6.1 L [place] % (Auto) (4.8 - 9.0 %) 4.6 L Eos % (Auto) (0.3 - 3.7 %) 0.8 Baso % (Auto) (0.0 - 2.0 %) 0.3 Neut # (Auto) (2.0 - 7.6 x10 3/uL) 15.97 H Lymph # (Auto) (1.0 - 3.8 x10 3/uL) 1.12 [place] # (Auto) (0.1 - 0.8 x10 3/uL) [...] 1909 Report Impression - Status: SIGNED Entered: 11/09/2024 [...] evaluation of SOB and chest pain at [facility]. Patient was found to have NSTEMI. 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 Patient was transported to [facility] for CABG evaluation. Assessment and Plan NSTEMI [...] Dispo: POD #1. CABG. at 1331 RPT #:[id number] END OF REPORT [facility] 2024-11-10 10:51:[address] [facility]) Cardiothoracic Surgery Prog REPORT#:[id number] REPORT STATUS: Signed REPORT INITIALIZATION DATE:11/10/24 TIME: 105 PATIENT: YUNIER PRATT UNIT #: [id number] ROOM/BED: [place] [address] : 72 AGE: 54 SEX: F ATTEND: [...] Result Date Time Pulse Ox 100 11/10 08 O2 Delivery Nasal cannula 11/11 807 O2 Flow Rate 4 11/10 0808 B/P 107/58 11/10 07 B/P Mean 76 11/10 699 Temp 98.6 11/10 699 Pulse 80 11/10 07 Resp 2 11/10 699 FiO2 36 11/10 0338 24 hour I [...] Abdomen: soft, non-tender Extremities: dry, moves all Neuro/REWRITER: alert, oriented X 3 Skin: dry, intact Diagnosis, Assessment Plan Hospital course to date: This is a 54-year-old female with a past medical history of hypertension, diabetes on insulin who presented to [facility] with complaints of chest pain. She was ruled in for NSTEMI on her blood work. 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 Patient was transferred to [facility] for further evaluation and workup of multivessel [...] cardiovascular surgery at 1223 at 0833 RPT #:[id number] END OF REPORT [facility] 2024-11-10 10:11:00 [facility] Cardiology Progress Note REPORT#:[id number] REPORT STATUS: Signed REPORT INITIALIZATION DATE:11/10/24 TIME: 1011 PATIENT: YUNIER PRATT UNIT #: [id number] ROOM/BED: [place] [address] : 72 AGE: 54 SEX: F ATTEND: [...] 11/09 1116 69 19 149/67 95 96 03/21 1100 70 19 135/72 98 97 03/21 1019 72 28 154/77 108 99 PATIENT WEIGHT: Weight (lb): 160 Weight (oz): 7.94 Weight (kg): 72.800 Medications: Active Meds + DC'd Last 24 Hrs Ipratropium Basom (ATROVENT) 500 MCG RTQ2H PRN PRN INH [...] CHLORIDE) 0 .STK-MED ONE IV (DC) Ipratropium Basom (ATROVENT) 500 MCG RTQ4H INH Ephedrine Sulfate [...] CHLORIDE 0.9%) 250 ML Q24H IV Rocuronium Basom (ZEMURON) 0 .STK-MED ONE IV (DC) Cefazolin [...] (ZOFRAN) 0 .STK-MED ONE .ROUTE (DC) Rocuronium Basom (ZEMURON) 0 .STK-MED ONE IV (DC) Mupirocin (BACTROBAN 2% 22 GM OINTMENT) 1 APPLIC BID NASAL (DC) Fluticasone Propionate (Flonase Nasal [place]) 2 SPRAY DAILY NASAL (CKD) Cefazolin Sodium [...] calf tenderness, no edema Musculoskeletal: normal inspection Neuro/REWRITER: alert, oriented X 3, normal speech Skin: [...] - 32.0 %) 4.9 L 6.1 L [place] % (Auto) (4.8 - 9.0 %) 5.4 4.6 L Eos % (Auto) (0.3 - 3.7 %) 0.0 L 0.8 Baso % (Auto) (0.0 - 2.0 %) 0.1 0.3 Neut # (Auto) (2.0 - 7.6 x10 3/uL) 10.11 H 15.97 H Lymph # (Auto) (1.0 - 3.8 x10 3/uL) 0.56 L 1.12 [place] # (Auto) (0.1 - 0.8 x10 3/uL) [...] DM, neuropathy, tobacco abuse who presented at [facility] with shortness of breath and chest pain. She was ruled for NSTEMI, had LHC which revealed multivessed CAD. She is transferred to [facility] for CABG evaluation. 1. NSTEMI/Multivessel CAD * [...] lasix 40 mg BID at 1014 RPT #:[id number] END OF REPORT [facility] 2024-11-10 07:03:00 [facility] Critical Care Progress Note REPORT#:[id number] REPORT STATUS: Signed REPORT INITIALIZATION DATE:11/10/24 TIME: 702 PATIENT: YUNIER PRATT UNIT #: [id number] ROOM/BED: [place] [address] : 72 AGE: 54 SEX: F ATTEND: Flynn Becerra MD ADM AUTHOR: Jean Claude Smith MD REPT SERVICE DT/TIME: 11/10/24 0703 * ALL edits or amendments must be made on the electronic/computer document * Subjective Chief complaint: CP, SOB HPI: 52-year-old female with significant history of hypertension diabetes diabetic neuropathy history of CAD tobacco use who presented to an outside facility [facility] complaining of shortness of breath or chest pain. Diagnosed with elevated troponins and NSTEMI. Cardiac cath showed multivessel disease. Patient was transferred to [facility] for surgical vascularization evaluation. Patient today underwent [...] Meds + DC'd Last 24 Hrs Ipratropium Basom (ATROVENT) 500 MCG RTQ2H PRN PRN INH [...] CHLORIDE) 0 .STK-MED ONE IV (DC) Ipratropium Basom (ATROVENT) 500 MCG RTQ4H INH Ephedrine Sulfate [...] CHLORIDE 0.9%) 250 ML Q24H IV Rocuronium Basom (ZEMURON) 0 .STK-MED ONE IV (DC) Cefazolin [...] (ZOFRAN) 0 .STK-MED ONE .ROUTE (DC) Rocuronium Basom (ZEMURON) 0 .STK-MED ONE IV (DC) Mupirocin [...] ONE .ROUTE (DC) Fluticasone Propionate (Flonase Nasal [place]) 2 SPRAY DAILY NASAL (CKD) Cefazolin Sodium [...] guarding Extremities: moves all, normal capillary refill Neuro/REWRITER: CNII-XII intact, normal speech, reflexes equal bilat, [...] Qual (NEGATIVE) SERUM NEGATIVE Laboratory Tests 11/095 2023 1757 1742 Coagulation INR (0.8 - 1.2) 1.3 H 1.4 H PTT (Titus) (25.0 - 39.5 Seconds) 26.6 25.1 PT [...] - 32.0 %) 4.9 L 6.1 L [place] % (Auto) (4.8 - 9.0 %) 5.4 4.6 L Eos % (Auto) (0.3 - 3.7 %) 0.0 L 0.8 Baso % (Auto) (0.0 - 2.0 %) 0.1 0.3 Neut # (Auto) (2.0 - 7.6 x10 3/uL) 10.11 H 15.97 H Lymph # (Auto) (1.0 - 3.8 x10 3/uL) 0.56 L 1.12 [place] # (Auto) (0.1 - 0.8 x10 3/uL) [...] MRSA DNA Surveillance Screen - ORD 11/08 0949 NASAL: MSSA Surveillance Screen - COMP 11/08 0949 NASAL: MRSA DNA Surveillance Screen - COMP 11/08 0252 NASAL: MRSA DNA Surveillance Screen - COMP Radiology data Recent Impressions: ULTRASOUND - DUP UE ART UNI/LTD 11/09 0907 Report Impression - Status: SIGNED Entered: 11/09/2024 0951 IMPRESSION: Positive sonographic Tereso test suggesting no collateral flow from the ulnar artery to the radial artery. Palmar arch supplied by the radial artery. Impression By: Janey Pulido M.D. RADIOLOGY - [...] does have significant chronic pain. Will restart long term Neurontin dose and see if that helps. [...] care time: Minutes: 35 at 0800 RPT #:[id number] END OF REPORT [facility] 2024-11-10 04:38:00 [id number] [place] [address] PATIENT NAME: YUNIER PRATT ADMIT DATE: 11/08/24 ACCOUNT NO: [id number] ROOM NO: [facility] AGE: 54 REPORT TYPE: eELECTROCARDIOGRAM REPORT SEX: F ADMITTING PHYSICIAN:Angela Aceves DO ATTENDING PHYSICIAN:Flynn Becerra MD Order: [id number] Test Reason : Cardiac Surgery Post Op [...] at 1320 PATIENT NAME: YUNIER PRATT [facility] 2024-11-09 23:41:00 [facility] ([facility]) Cardiology Progress Note REPORT#:[id number] REPORT STATUS: Signed REPORT INITIALIZATION DATE:11/09/24 TIME: 2341 PATIENT: YUNIER PRATT UNIT #: [id number] ROOM/BED: [place] [address] : 72 AGE: 54 SEX: F ATTEND: Flynn Becerra MD ADM AUTHOR: Sharon Lindquist MD REPT SERVICE DT/TIME: 11/09/242340 * ALL edits or amendments must be [...] Meds + DC'd Last 24 Hrs Ipratropium Basom (ATROVENT) 500 MCG RTQ2H PRN PRN INH [...] CHLORIDE) 0 .STK-MED ONE IV (DC) Ipratropium Basom (ATROVENT) 500 MCG RTQ4H INH Ephedrine Sulfate [...] CHLORIDE 0.9%) 250 ML Q24H IV Rocuronium Basom (ZEMURON) 0 .STK-MED ONE IV (DC) Cefazolin [...] (ZOFRAN) 0 .STK-MED ONE .ROUTE (DC) Rocuronium Basom (ZEMURON) 0 .STK-MED ONE IV (DC) Mupirocin [...] ONE .ROUTE (DC) Fluticasone Propionate (Flonase Nasal [place]) 2 SPRAY DAILY NASAL (CKD) Cefazolin Sodium [...] calf tenderness, no edema Musculoskeletal: normal inspection Neuro/REWRITER: alert, oriented X 3, normal speech Skin: dry, intact, normal color Psychiatry: normal affect, normal judgment/insight, normal mood Results Findings/Data: Laboratory Tests 11/09 11/09 11/09 11/09 1946 1836 0484 1705 Blood Gas Puncture Site Art Line Art [...] SERUM NEGATIVE Laboratory Tests 11/09 1757 1742 1728 Coagulation INR (0.8 - [...] Coagulation INR (0.8 - 1.2) 1.2 PTT (Titus) (25.0 - 39.5 Seconds) 52.0 H PT [...] (14.0 - 32.0 %) 6.1 L 29.6 [place] % (Auto) (4.8 - 9.0 %) 4.6 L 9.2 H Eos % (Auto) (0.3 - 3.7 %) 0.8 2.3 Baso % (Auto) (0.0 - 2.0 %) 0.3 0.5 Neut # (Auto) (2.0 - 7.6 x10 3/uL) 15.97 H 3.59 Lymph # (Auto) (1.0 - 3.8 x10 3/uL) 1.12 1.83 [place] # (Auto) (0.1 - 0.8 x10 3/uL) [...] 3/uL) 0.00 0.00 Laboratory Tests 11/09 11/09 1187 6917 Chemistry Magnesium (1.6 - 2.6 mg/dL) 2.30 1.83 Diagnosis, Assessment Plan Free Text DxA P Notes Free Text DxA P Notes: 54 YO patient with MH of HTN, DM, neuropathy, tobacco abuse who presented at [facility] with shortness of breath and chest pain. She was ruled for NSTEMI, had LHC which revealed multivessed CAD. She is transferred to [facility] for CABG evaluation. 1. NSTEMI/Multivessel CAD * [...] on IV lasix 40 mg BID at 2343 RPT #:[id number] END OF REPORT [facility] 2024-11-09 18:41:00 [id number] [place] [address] PATIENT NAME: YUNIER PRATT ADMIT DATE: 11/08/24 ACCOUNT NO: [id number] ROOM NO: [facility] AGE: 54 REPORT TYPE: eELECTROCARDIOGRAM REPORT SEX: F ADMITTING PHYSICIAN:Angela Aceves DO ATTENDING PHYSICIAN:Flynn Becerra MD Order: [id number] Test Reason : Cardiac Surgery Post Op [...] By: Self Referred Confirmed by:NITO JACQUES at 1319 PATIENT NAME: YUNIER PRATT [facility] 2024-11-09 18:39:00 [facility] ([facility]) Critical Care Consult Note REPORT#:[id number] REPORT STATUS: Signed REPORT INITIALIZATION DATE:11/09/24 TIME: 1838 PATIENT: YUNIER PRATT UNIT #: [id number] ROOM/BED: [place] [address] : 72 AGE: 54 SEX: F ATTEND: [...] use who presented to an outside facility [facility] complaining of shortness of breath or chest pain. Diagnosed with elevated troponins and NSTEMI. Cardiac cath showed multivessel disease. Patient was transferred to [facility] for surgical vascularization evaluation. Patient today underwent [...] Pulse Ox 96 11/09 1116 B/P 149/67 11/09 1116 B/P Mean 95 11/09 1116 Pulse [...] Meds + DC'd Last 24 Hrs Ipratropium Basom (ATROVENT) 500 MCG RTQ2H PRN PRN INH [...] CHLORIDE) 0 .STK-MED ONE IV (DC) Ipratropium Basom (ATROVENT) 500 MCG RTQ4H INH Ephedrine Sulfate [...] CHLORIDE 0.9%) 250 ML Q24H IV Rocuronium Basom (ZEMURON) 0 .STK-MED ONE IV (DC) Cefazolin [...] (ZOFRAN) 0 .STK-MED ONE .ROUTE (DC) Rocuronium Basom (ZEMURON) 0 .STK-MED ONE IV (DC) Mupirocin [...] ONE .ROUTE (DC) Fluticasone Propionate (Flonase Nasal [place]) 2 SPRAY DAILY NASAL (CKD) Cefazolin Sodium [...] guarding Extremities: moves all, normal capillary refill Neuro/REWRITER: CNII-XII intact, normal speech, reflexes equal bilat, [...] Coagulation INR (0.8 - 1.2) 1.2 PTT (Titus) (25.0 - 39.5 Seconds) 52.0 H PT [...] % (Auto) (14.0 - 32.0 %) 29.6 [place] % (Auto) (4.8 - 9.0 %) 9.2 H Eos % (Auto) (0.3 - 3.7 %) 2.3 Baso % (Auto) (0.0 - 2.0 %) 0.5 Neut # (Auto) (2.0 - 7.6 x10 3/uL) 3.59 Lymph # (Auto) (1.0 - 3.8 x10 3/uL) 1.83 [place] # (Auto) (0.1 - 0.8 x10 3/uL) [...] MRSA DNA Surveillance Screen - ORD 11/08 0949 NASAL: MSSA Surveillance Screen - COMP 11/08 948 NASAL: MRSA DNA Surveillance Screen - COMP 11/08 025 NASAL: MRSA DNA Surveillance Screen - COMP Radiology data: Recent Impressions: ULTRASOUND - DUP UE ART UNI/LTD 11/09 906 Report Impression - Status: SIGNED Entered: 11/09/2024 0982 IMPRESSION: Positive sonographic Tereso test suggesting no collateral flow from the ulnar artery to the radial artery. Palmar arch supplied by the radial artery. Impression By: [facility] Ange Pulido M.D. Diagnosis, Assessment Plan Diagnosis, [...] antibiotics per primary service at 1847 RPT #:[id number] END OF REPORT [facility] 2024-11-09 18:20:00 [id number] [place] [address] PATIENT NAME: YUNIER PRATT ADMIT DATE: 11/08/24 ACCOUNT NO: [id number] ROOM NO: [facility] AGE: 54 REPORT TYPE: OPERATIVE REPORT SEX: [...] 4. Posterior pericardiotomy. SURGEON: Vignesh Ross MD HELPDESK ANALYST: Kang Butler. ANESTHESIOLOGIST: Dr. Davis. ANESTHESIA: General [...] mm in size. Arteriotomy was performed with Campo blade and extended with Clinton scissors. A [...] mm in size. Arteriotomy was performed with Campo blade and extended with Clinton scissors. A [...] in size. Arteriotomy was performed with a Campo blade and extended with Clinton scissors. A [...] in size. Arteriotomy was performed with a Campo blade and extended with Clinton scissors. A [...] in size. Arteriotomy was performed with a Campo PATIENT NAME: YUNIER PRATT blade and extended [...] One active ventricular wire was placed. A 28-Brazilian chest tube was placed in the mediastinum [...] Dictated: 11/09/2024 18:20:05 Date Transcribed: 11/09/2024 21:16:04 /[facility] Receipt ID: [id number] Authenticated by Antoinette Ross MD On 11/13/2024 07:31:05 AM at 0731 PATIENT NAME: YUNIER PRATT [facility] 2024-11-09 18:06:00 [facility] ([facility]) Brief Op Note REPORT#:[id number] REPORT STATUS: Signed REPORT INITIALIZATION DATE:11/09/24 TIME: 1805 PATIENT: YUNIER PRATT UNIT #: [id number] ROOM/BED: [place] [address] : 72 AGE: 54 SEX: F ATTEND: Leyda Trotter MD ADM AUTHOR: Antoinette Ross MD REPT SERVICE DT/TIME: 11/09/241805 * ALL edits or amendments must be made on the electronic/computer document * Op/Inv Proc Note - Brief Pre-procedure diagnosis: CAD Post-procedure diagnosis: same as pre procedure dx Procedures performed: CABG (ASH-LAD, SVG-OM1, SVG-OM2, SVG-Diag, SVG-PDA) EVH (Cornell GSV) ALAA PP Primary Surgeon: Vandana [employer](s): Kang Butler Findings: LAD-2mm Complications: none Estimated blood loss in ml's: 100 cc Specimens removed/altered: SAHRA at 0832 RPT #:[id number] END OF REPORT [facility] 2024-11-09 09:46:00 [facility] ([facility]) Clinical Note REPORT#:[id number] REPORT STATUS: Signed REPORT INITIALIZATION DATE:11/09/24 TIME: 945 PATIENT: YUNIER PRATT UNIT #: [id number] ROOM/BED: [place] [address] : 72 AGE: 54 SEX: F ATTEND: Flynn Becerra MD ADM AUTHOR: Flynn Becerra MD REPT SERVICE DT/TIME: 11/09/2446 * ALL edits or amendments must be made on the electronic/computer document * Clinical Note Note: I verified with the patient and family, She does take 200mg of seroquel at night and 1,200mg of gabapentin q8hrs. at home. at 0948 RPT #:[id number] END OF REPORT [facility] 2024-11-09 09:02:00 [facility] ([facility]) Hospitalist Progress Note REPORT#:[id number] REPORT STATUS: Signed REPORT INITIALIZATION DATE:11/09/24 TIME: 901 PATIENT: YUNIER PRATT UNIT #: [id number] ROOM/BED: [place] [address] : 72 AGE: 54 SEX: F ATTEND: [...] presented for evaluation of chest pain at [facility]. Patient was found to have NSTEMI on blood work. She underwent LHC which showed severe multivessel disease in LAD and RCA. Patient was transported to [facility] for evaluation of CABG. Currently denies chest [...] MG BEDTIME PO Fluticasone Propionate (Flonase Nasal [place]) 2 SPRAY DAILY NASAL (CKD) Cefazolin Sodium [...] no rebound Extremities: moves all, no edema Neuro/REWRITER: alert, oriented X 3, CNII-XII intact, no [...] Coagulation INR (0.8 - 1.2) 1.2 PTT (Titus) (25.0 - 39.5 Seconds) 52.0 H 47.9 H 32.6 PT Patient/Control Mix (9.3 - 12.9 SECONDS) 13.5 H Laboratory Tests 11/09 0137 Hematology WBC (4.5 [...] % (Auto) (14.0 - 32.0 %) 29.6 [place] % (Auto) (4.8 - 9.0 %) 9.2 H Eos % (Auto) (0.3 - 3.7 %) 2.3 Baso % (Auto) (0.0 - 2.0 %) 0.5 Neut # (Auto) (2.0 - 7.6 x10 3/uL) 3.59 Lymph # (Auto) (1.0 - 3.8 x10 3/uL) 1.83 [place] # (Auto) (0.1 - 0.8 x10 3/uL) [...] SCAN - CT CHEST W/O CONTRAST 11/08 948 Report Impression - Status: SIGNED Entered: 11/08/2024 [...] RADIOLOGY - XR CHEST 1 V 11/08 956 Report Impression - Status: SIGNED Entered: 11/08/2024 1753 IMPRESSION: Bilateral pleural effusions and bilateral lower lobe consolidative changes, similar to the CT performed the same day Impression By: [email or web address] - Samara Gordon M.D. Diagnosis, Assessment Plan Consultants: cardiology, cardiovascular surgery Free Text DxA P Notes Free text DxA P notes: 54 yo F w PMHx of HTN, DM presented for evaluation of SOB and chest pain at [facility]. Patient was found to have NSTEMI. 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 Patient was transported to [facility] for CABG evaluation. Assessment and Plan NSTEMI [...] Attestations Attestation needed: supervising physician Flynn Becerra 11/09/24 2019: Attestations Teaching Physician Attestation F/U visit w/o resident: I personally saw the patient and reviewed the resident's note. I agree with the resident's findings and plan. at 1653 at 2020 RPT #:[id number] END OF REPORT [facility] 2024-11-08 14:12:00 [phone] [place] [address] PATIENT NAME: YUNIER PRATT ADMIT DATE: 11/08/24 ACCOUNT NO: [id number] ROOM NO: [facility] AGE: 54 REPORT TYPE: eECHOCARDIOGRAM REPORT SEX: F ADMITTING PHYSICIAN:Angela Aceves DO ATTENDING PHYSICIAN:Flynn Becerra MD *[place] [address] Transthoracic Echocardiogram Patient: Yunier Pratt Study Date: 11/08/2024 BP: 150 / 77 URN: [id number] Location: : 1970 Age: 54 Gender: F Height: 66 in / 167.6 cm Weight: 160 lb / 72.6 kg BMI/BSA: 25.8 kg/m 2 / 1.85 m 2 *Ordering Physician: * Angela Aceves R3 *Interpreting Physician: * Nito Jacques *Stretcher And Drier: * Di Underwood [facility] Indications: CAD. Study data: Transthoracic echocardiogram. Procedure: [...] cm 2 --------- Pulmonic valve Value Ref AR peak v 1.35 m/sec --------- AR peak grad 7 mm Hg --------- Tricuspid [...] at 1412 PATIENT NAME: YUNIER PRATT [facility] 2024-11-08 09:52:00 [facility] ([facility] Hospitalist Progress Note REPORT#:[id number] REPORT STATUS: Signed REPORT INITIALIZATION DATE:11/08/24 TIME: 951 PATIENT: YUNIER PRATT UNIT #: [id number] ROOM/BED: [place] [address] : 74 AGE: 54 SEX: F ATTEND: Flynn Becerra MD ADM AUTHOR: David Bass MD R1 REPT SERVICE DT/TIME: 11/08/24 09 * ALL edits or amendments must be made on the electronic/computer document * David Miles 11/08/24 0952: Subjective Chief complaint: Patient doing ok this morning. No complaints. Denies ches pain and SOB. On room air. On herapin drip. HPI: 54 yo F w PMHx of HTN, DM presented for evaluation of chest pain at [facility]. Patient was found to have NSTEMI on blood work. She underwent LHC which showed severe multivessel disease in LAD and RCA. Patient was transported to [facility] for evaluation of CABG. Currently denies chest [...] no rebound Extremities: moves all, no edema Neuro/REWRITER: alert, oriented X 3, CNII-XII intact, no [...] Coagulation INR (0.8 - 1.2) 1.2 PTT (Titus) (25.0 - 39.5 Seconds) 27.5 PT Patient/Control [...] (Auto) (14.0 - 32.0 %) 17.5 21.0 [place] % (Auto) (4.8 - 9.0 %) 7.2 5.9 Eos % (Auto) (0.3 - 3.7 %) 2.2 1.6 Baso % (Auto) (0.0 - 2.0 %) 0.3 0.3 Neut # (Auto) (2.0 - 7.6 x10 3/uL) 4.95 4.79 Lymph # (Auto) (1.0 - 3.8 x10 3/uL) 1.20 1.42 [place] # (Auto) (0.1 - 0.8 x10 3/uL) [...] (5.0 - 7.0) 8.0 H Ur Specific [place] (1.005 - 1.030) 1.024 Urine Protein (NEGATIVE) [...] Radiology data: Recent Impressions: ULTRASOUND - US EXTREM NON VASC LTD 11/09 831 Report Impression - Status: SIGNED Entered: 11/08/2024 1108 IMPRESSION: 1. Venous mapping measurements noted above. 2. No evidence for venous thrombosis. Impression By: Janey Pulido M.D. ULTRASOUND - DUP EXTRACRANIAL CORNELL 11/09 831 Report Impression - Status: SIGNED Entered: 11/08/2024 1105 IMPRESSION: Heavy plaque buildup primarily in the bulbs and internal carotid arteries on both sides. Impression By: Josefa Mathew M.D. CAT SCAN - CT CHEST W/O CONTRAST 11/08 0849 Report Impression - Status: SIGNED Entered: 11/08/2024 [...] use of iterative reconstruction technique Impression By: [email or web address] - Remberto Pfeiffer M.D. Diagnosis, Assessment Plan Consultants: cardiology, cardiovascular surgery Free Text DxA P Notes Free text DxA P notes: 54 yo F w PMHx of HTN, DM presented for evaluation of SOB and chest pain at [facility]. Patient was found to have NSTEMI. 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 Patient was transported to [facility] for CABG evaluation. Assessment and Plan NSTEMI [...] Attestations Attestation needed: supervising physician Flynn Becerra 11/08/24 1817: Attestations Teaching Physician Attestation F/U visit w/o resident: I personally saw the patient and reviewed the resident's note. I agree with the resident's findings and plan. at 1417 at 1820 RPT #:[id number] END OF REPORT [facility] 2024-11-08 09:19:00 [facility] [facility] ([facility] Cardiothoracic Surgery Consult REPORT#:[id number] REPORT STATUS: Signed REPORT INITIALIZATION DATE:11/08/24 TIME: 918 PATIENT: YUNIER PRATT UNIT #: [id number] ROOM[address]BED: [address] : 72 AGE: 54 SEX: F ATTEND: Flynn Becerra MD ADM AUTHOR: Elise Harvey Physic REPT SERVICE DT/TIME: 11/08/24918 * ALL edits or amendments must be made on the electronic/computer document * Elise Harvye 11/08/24918: History of Present Illness HPI Chief complaint: Coronary disease HPI: This is a 54-year-old female with a past medical history of hypertension, diabetes on insulin who presented to [facility] with complaints of chest pain. She was ruled in for NSTEMI on her blood work. 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 Patient was transferred to [facility] for further evaluation and workup of multivessel [...] Packs per day: 0.5 Pack years: 0 Review of Systems Review of Systems ROS [...] Ox 98 11/08 912 B/P 155/79 11/08 09 B/P Mean 104.2 11/08 912 Temp 97.9 11/08 09 Pulse 79 11/08 0913 Resp 16 11/08 09 O2 Delivery Room [...] hypertension, diabetes on insulin who presented to [facility] with complaints of chest pain. She was ruled in for NSTEMI on her blood work. 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 Patient was transferred to [facility] for further evaluation and workup of multivessel [...] to follow based on further clinical workup. Antoinette Ross 11/24/24 0915: History Allergies: Coded Allergies: heparin (BLOOD CLOT 11/13/24) HIT (+) Attestations Physician Attestation Agree w/findings plan: I have seen and examined Ms. Pratt. I agree with the findings and plan as documented by JUSTIN Damian. Briefly, 54-year-old female with severe coronary artery disease. Patient will benefit from surgical revascularization. I had a long discussion with the patient, explained to her the angiogram finding and need for surgical revascularization. I have discussed with her the procedure, risk involved, benefit, alternatives, and complications Patient verbalized understanding the risk and has consented for surgery.. at 0921 at 0921 RPT #:[id number] END OF REPORT [facility] 2024-11-08 08:42:00 [facility] ([facility]) Cardiology Consultation REPORT#:[id number] REPORT STATUS: Signed REPORT INITIALIZATION DATE:11/08/24 TIME: 841 PATIENT: YUNIER PRATT UNIT #: [id number] ROOM/BED: [place] [address] : 72 AGE: 54 SEX: F ATTEND: Alejandro Bay MD ADM AUTHOR: Fay Fernandez AGACNP REPT SERVICE DT/TIME: 11/08/24 08 * ALL edits or amendments must be made on the electronic/computer document * Fay Fernandez 11/08/24841: History of Present Illness HPI Requesting Clinician: Dr. Ross Reason for consult: NSTEMI/multivessel CAD Chief complaint: Shortness of breath and chest pain PCP: PCP: No Primary or Family Physician HPI: 54 YO patient with MH of HTN, DM, neuropathy, tobacco abuse who presented at [facility] with shortness of breath and chest pain. She was ruled for NSTEMI, had LHC which revealed multivessed CAD. She is transferred to [facility] for CABG evaluation. Hx Obtained From Patient [...] calf tenderness, no edema Musculoskeletal: normal inspection Neuro/REWRITER: alert, oriented X 3, normal speech Skin: dry, intact, normal color Psychiatry: normal affect, normal judgment/insight, normal mood Results Findings/Data: Laboratory Tests 11/08 11/08 11/08 11/08 0652 [id number] Chemistry Sodium (134 - 147 mEq/L) 137 [...] 1.2 PTT ([place]) (25.0 - 39.5 Seconds) 27.5 PT Patient/Control [...] (Auto) (14.0 - 32.0 %) 17.5 21.0 [place] % (Auto) (4.8 - 9.0 %) 7.2 5.9 Eos % (Auto) (0.3 - 3.7 %) 2.2 1.6 Baso % (Auto) (0.0 - 2.0 %) 0.3 0.3 Neut # (Auto) (2.0 - 7.6 x10 3/uL) 4.95 4.79 Lymph # (Auto) (1.0 - 3.8 x10 3/uL) 1.20 1.42 [place] # (Auto) (0.1 - 0.8 x10 3/uL) [...] (5.0 - 7.0) 8.0 H Ur Specific [place] (1.005 - 1.030) 1.024 Urine Protein (NEGATIVE) [...] Recent Impressions: ULTRASOUND - US EXTREM NON VASC LTD 03/20 0832 Report Impression - Status: SIGNED Entered: 11/08/2024 1108 IMPRESSION: 1. Venous mapping measurements noted above. 2. No evidence for venous thrombosis. Impression By: MitchBhupinder Pulido M.D. ULTRASOUND - DUP EXTRACRANIAL CORNELL [...] Report Impression - Status: SIGNED Entered: 11/08/2024 1753 IMPRESSION: Bilateral pleural effusions and bilateral lower [...] DM, neuropathy, tobacco abuse who presented at [facility] with shortness of breath and chest pain. She was ruled for NSTEMI, had LHC which revealed multivessed CAD. She is transferred to [facility] for CABG evaluation. 1. NSTEMI/Multivessel CAD * [...] the findings and plan as documented by Fay Fernandez. at 1937 at 1015 RPT #:[id number] END OF REPORT [facility] 2024-11-08 06:35:00 [id number] [facility] [place] [address] PATIENT NAME: YUNIER PRATT ADMIT DATE: 11/08/24 ACCOUNT NO: [id number] ROOM NO: [id number] AGE: 54 REPORT TYPE: eELECTROCARDIOGRAM REPORT SEX: F ADMITTING PHYSICIAN:Angela Aceves DO ATTENDING PHYSICIAN:Flynn Becerra MD Order: [id number] Test Reason : NSTEMI Test Date/Time Stamp: [...] at 0743 PATIENT NAME: YUNIER PRATT [facility] 2024-11-08 02:23:00 [facility] ([facility]) Hospitalist History Physical REPORT#:[id number] REPORT STATUS: Signed REPORT INITIALIZATION DATE:11/08/24 TIME: 222 PATIENT: YUNIER PRATT UNIT #: [id number] ROOM/BED: [place] [address] : 72 AGE: 54 SEX: F ATTEND: [...] presented for evaluation of chest pain at [facility]. Patient was found to have NSTEMI on blood work. She underwent LHC which showed severe multivessel disease in LAD and RCA. Patient was transported to [facility] for evaluation of CABG. Currently denies chest [...] no rebound Extremities: moves all, no edema Neuro/REWRITER: alert, oriented X 3, CNII-XII intact, no [...] gtt Pepcid FULL CODE at 0722 RPT #:[id number] END OF REPORT [facility] 2018-06-26 15:39:43 [place] [address] Patient Name: YUNIER PRATT Patient#: [id number] Admission Date: 06/23/2018 Date of : 1970 Age/Gender: 47/F HSSV/RM/BED: TEL/8082/A Admitting Phys: Leonor Eubanks DO PROGRESS NOTE DATE: 06/26/2018 SUBJECTIVE Ms. [...] 15 months prior. She lives in a penitentiary house presently. She has never been diagnosed with any cirrhosis of her liver, to her knowledge. Electronically Signed By: ALLISON GONZÁLES 2018-06-26 17:00:30 Patient was seen and physically examined, and assessment and plan were formulated in collaboration with Dr. Collado. DICTATED BY: KURTIS De La Paz MD TT: 06/26/2018 15:39:43 /MODL /[id number] Electronically Signed By: ALLISON GONZÁLES 2018-06-26 17:00:30 ELIECER COOPER JOAN 2018-06-23 22:14:[address] [address] Patient Name: YUNIER PRATT Patient#: [id number] Admission Date: 06/23/2018 Date of : 1970 Age/Gender: 47/F HSSV/RM/BED: TEL/3302/A Admitting Phys: Dana Perales MD CONSULTATION NOTE [...] 15 months ago. She lives in a penitentiary house presently. 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
[2024-12-04 12:16] LABS: Albumin 2.4 g/dL (3.4-5.0); Albumin/Globulin Ratio 0.5 (1.1-1.8); Anion Gap 8.2 mEq/L (5.0-15.0); Bilirubin Total 0.6 mg/dL (0.2-1.0); Globulin 4.9 g/dL (2.3-3.5); Potassium 4.2 mEq/L (3.5-5.1); Protein, Total 7.3 g/dL (6.4-8.2)
[2024-12-04 12:29] LABS: Absolute Eosinophils 0.3 K/uL (0-0.5); Absolute Lymphocytes (CBC) 0.7 K/uL (0.7-4.9); Absolute Monocytes 0.6 K/uL (0.1-1.3); Absolute Neutrophil 7.8 K/uL (1.8-8.0); Basophils % 0.3 % (0-1.3); Eosinophils % 2.9 % (0-4.4); Hematocrit 30.8 % (36.0-45.0); Hemoglobin 9.8 g/dL (12.0-15.0); Lymphocytes % 7.3 % (15.3-44.8); MCH 25.8 pg (27.0-35.0); MCHC 31.7 g/dL (32.0-36.0); MCV 81.2 fL (80-100); MPV 8.5 fL (7.6-11.3); Monocytes % 6.3 % (3.3-12.3); Neutrophils % 83.2 % (41.7-73.7); Nucleated Red Blood Cells % 0.1 % (0-0); Platelets 159 thou/uL (152-406); Red Cell Distribution Width 22.3 % (12.1-15.2)
[2024-12-04] MEDS ORDERED: VANCOMYCIN 1 GM/VIAL ONE (13:18)
[2024-12-04] MEDS ORDERED: ONDANSETRON 4 MG/2 ML VIAL ONE (13:18)
[2024-12-04] MEDS ORDERED: NA CHLORIDE 0.9% 250 ML ONE (13:19)
[2024-12-04] MEDS ORDERED: MORPHINE 4 MG/ML SYR ONE ×3 (13:19→15:32)
--- NOTE | 2024-12-04 13:19 | RAD REPORT ---
EXAM: CT CHEST WITH CONTRAST CLINICAL INDICATION: wound infection TECHNIQUE: Routine CT scan of the chest with intravenous contrast. One or more of the following dose reduction techniques were used: Automated exposure control, adjustment of the mA and/or kV according to patient size, and/or iterative reconstruction. Unless otherwise specified, incidental fi ndings do not require dedicated imaging follow-up. COMPARISON: 11/24/2024 FINDINGS: LUNGS: Mild linear atelectasis is seen in both lung bases posteriorly, greater on the left. PLEURA: Small to moderate bilateral pleural effusions, greater on the right. Large irregular fluid co llection is seen along the inferior aspect of the heart which appears to communicate with an abnormal fluid collection anterior to the inferior margin of the sternum. This large collection has i ncreased significantly since prior study of is likely a large abscess. The collection measures 10 x 5 cm. MEDIASTINUM AND LYMPH NODES: Postsurgical changes of sternotomy. Small amount of fluid prevascular sp thiago. UPPER ABDOMEN: Small amount of free fluid is seen with mild hepatomegaly. IMPRESSION: Large abnormal rim-enhancing fluid collection is seen along the inferior aspect of the heart which co mmunicates through the lower infrasternal soft tissues to an irregular subcutaneous fluid collection and presumably communicates with the skin surface. This is likely an abscess and measures at least 10 x 5 cm.
--- NOTE | 2024-12-04 13:44 | EDPHYS ---
Physician Documentation [facility] Name: Cira Warren Age: 54 yrs Sex: Female : 1970 Arrival Date: 12/04/2024 Time: 10:43 Bed 24 Private MD: ED Physician Bobo Connell HPI: 12/04 14:13 This 54 yrs old Female presents to ER via Ambulatory with complaints of Post surgical rt wound check 11/09/24. 14:13 Patient had a recent CABG complicated by postoperative fluid collection, likely an rt abscess that was drained, patient had the drain subsequently removed. She states that for the past day, she has developed worsening pain, redness and drainage of purulent material from the inferior incision. Reports fever and chills but denies any acute complaints at this time, symptoms are moderate in severity, no other aggravating alleviating factors.. 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 Historical: - Allergies: 11:11 Heparin; iw - Home Meds: 11:11 amiodarone 200 mg Oral tablet 1 tab daily [Active]; aspirin 81 mg Oral tablet 1 tab iw daily [Active]; atorvastatin 40 mg Oral tablet 1 tab daily [Active]; clopidogrel 75 mg Oral tablet 1 tab daily [Active]; ferrous sulfate 325 mg (65 mg iron) Oral tablet daily [Active]; fluticasone propionate 50 mcg/actuation intranasal spray [Active]; furosemide 40 mg Oral tablet 1 tab daily [Active]; metoprolol tartrate 25 mg Oral tablet 0.5 tab every 12 hours [Active]; pantoprazole 40 mg Oral tablet 1 tab every morning [Active]; quetiapine 100 mg Oral tablet 2 tabs daily [Active]; - PMHx: 11:11 diabetes mellitus; Hyperlipidemia; neuropathy; iw - PSHx: 11:11 Appendectomy; cardiac stents X 5 (ec); iw - Immunization history:: Adult Immunizations unknown. - Infectious Disease History:: Denies. - Family history:: not pertinent. ROS: 14:20 Constitutional: Negative for fever, chills, and weight loss, Respiratory: Negative for rt shortness of breath, cough, wheezing, and pleuritic chest pain, Abdomen/GI: Negative for abdominal pain, nausea, vomiting, diarrhea, and constipation, Neuro: Negative for headache, weakness, numbness, tingling, and seizure, 14:20 Cardiovascular: Positive for chest pain, Negative for edema, 14:20 Skin: Positive for Wound, erythema, Exam: 14:20 Constitutional: This is a well developed, well nourished patient who is awake, alert, rt and in no acute distress. Cardiovascular: Regular rate and rhythm with a normal S1 and S2. No gallops, murmurs, or rubs. Normal PMI, no JVD. No pulse deficits. Respiratory: Lungs have equal breath sounds bilaterally, clear to auscultation and percussion. No rales, rhonchi or wheezes noted. No increased work of breathing, no retractions or nasal flaring. Abdomen/GI: Soft, non-tender, with normal bowel sounds. No distension or tympany. No guarding or rebound. No evidence of tenderness throughout. Skin: Warm, dry with normal turgor. Normal color with no rashes, no lesions, and no evidence of cellulitis. MS/ Extremity: Pulses equal, no cyanosis. Neurovascular intact. Full, normal range of motion. Neuro: Awake and alert, GCS 15, oriented to person, place, time, and situation. Cranial nerves II-XII grossly intact. Motor strength 5/5 in all extremities. Sensory grossly intact. Cerebellar exam normal. Normal gait. 14:20 Chest/axilla: Surgical site to the inferior chest is somewhat dehisced, with purulent drainage coming from it. Mild surrounding erythema, side of the left chest tube appears to be dehisced with scant amount of discharge as well.. 14:20 ECG was reviewed by the Attending Physician. Vital Signs: 11:08 BP 156 / 90; Pulse 80; Resp 19; Temp 98.1; Pulse Ox 100% on R/A; Weight 75.3 kg; Height iw 5 ft. 6 in. ; Pain 10/10; 13:30 BP 138 / 70; Pulse 79; Resp 18; Pulse Ox 96% on R/A; kj2 14:30 BP 135 / 62; Pulse 83; Resp 20; Pulse Ox 97% on R/A; kj2 16:06 BP 134 / 64; Pulse 80; Resp 20; Temp 98.1; Pulse Ox 100% ; kj2 11:08 Body Mass Index 26.79 (75.30 kg, 167.64 cm) iw 11:08 Pain Scale: Adult iw MDM: 11:14 Medical Screening Exam initiated rt 14:36 Differential Diagnosis Postoperative wound infection, postoperative abscess. Data rt reviewed: vital signs, nurses notes, lab test result(s), EKG, radiologic studies. Consideration of Admission/Observation Patient requires transfer for continuity of care. Management of patient was discussed with the following: Pyrotechnic Mixer: Discussed with patient surgeon, accepts patient in transfer. I considered the following discharge prescriptions or medication management in the emergency department Medications were administered in the Emergency Department. See MAR. Independent interpretation of the following test(s) in the Emergency Department CT Scan: My interpretation is Abscess seen on my interpretation of CT scan images. Care significantly affected by the following chronic conditions: Diabetes. Counseling: I had a detailed discussion with the patient and/or guardian regarding the historical points, exam findings, and any diagnostic results supporting the discharge/admit diagnosis, lab results, radiology results, the need to transfer to another facility. Response to treatment: There is no appreciated change of the patient's symptoms at this time. 12/04 11:23 Order name: Blood Culture Adult (2) rt 12/04 11:23 Order name: CBC with Diff; Complete Time: 14:11 rt 12/04 11:23 Order name: CMP; Complete Time: 12:36 rt 12/04 11:23 Order name: Lactate w/ 2H reflex if indic.; Complete Time: 13:27 rt 12/04 11:23 Order name: Protime (+inr); Complete Time: 14:27 rt 12/04 11:23 Order name: Ptt, Activated; Complete Time: 14:27 rt 12/04 11:23 Order name: Wound Culture rt 12/04 12:44 Order name: CBC Smear Scan; Complete Time: 14:11 EDMS 12/04 11:23 Order name: CT Chest W/ Con; Complete Time: 13:27 rt 12/04 11:23 Order name: Accucheck; Complete Time: 14:24 rt 12/04 11:23 Order name: Cardiac monitoring; Complete Time: 13:19 rt 12/04 11:23 Order name: EKG - Nurse/Tech; Complete Time: 13:30 rt 12/04 11:23 Order name: IV Saline Lock - Large Bore; Complete Time: 13:30 rt 12/04 11:23 Order name: Labs collected and sent; Complete Time: 13:30 rt 12/04 11:23 Order name: O2 Per Protocol; Complete Time: 13:19 rt 12/04 11:23 Order name: O2 Sat Monitoring; Complete Time: 13:19 rt 12/04 11:23 Order name: Vital Signs; Complete Time: 13:30 rt 12/04 13:11 Order name: Labs - recollect needed: recollect blue top; Complete Time: 14:14 bd EC:20 Rate is 77 beats/min. Rhythm is regular, Normal Sinus Rhythm with No ectopy. Right axis rt deviation noted. VA interval is normal. QRS interval is normal. QT interval is normal. No Q waves. No ST changes noted. Interpreted by me. Administered Medications: 13:29 Drug: morphine IVP or IV 4 mg IVP once over 4 mins Route: IVP; Infused Over: 4 mins; kj2 Site: left forearm; 15:19 Follow up: Response: No adverse reaction kj2 13:29 Drug: Ondansetron IVP 4 mg IVP once; over 2 minutes Route: IVP; Site: left forearm; kj2 15:19 Follow up: Response: No adverse reaction kj2 13:30 Drug: vancoMYCIN IVPB 1 grams IVPB once over 2 hrs Route: IVPB; Infused Over: 2 hrs; kj2 Site: left forearm; 15:40 Follow up: IV Status: Completed infusion; IV Intake: 250ml kj2 14:21 Drug: morphine IVP or IV 4 mg IVP once over 4 mins Route: IVP; Infused Over: 4 mins; kj2 Site: left forearm; 15:19 Follow up: Response: No adverse reaction kj2 15:39 Drug: morphine IVP or IV 4 mg IVP once over 4 mins Route: IVP; Infused Over: 4 mins; kj2 Site: left forearm; 16:05 Follow up: Response: No adverse reaction kj2 Disposition Summary: 12/04/24 13:43 Transfer Ordered Notes: Transfer Location: [facility] rt Reason: Private Physician at Transferring Hospital rt Condition: Fair rt Problem: an ongoing problem rt Symptoms: are unchanged rt Accepting Physician: (12/04/24 16:06) kj2 Diagnosis - Postoperative abscess status post coronary artery bypass grafting rt Forms: - Medication Reconciliation Form rt - SBAR form rt Critical care time excluding procedures: 15:17 Critical care time: Bedside Care: 30 minutes, Consultation: 5 minutes. Total time: 35 rt minutes Signatures: Dispatcher [employer] EDMS Yahaira ghosh bd Ximena Gaitan, TAO BURGER iw Bobo Connell MD MD rt Colleen Springer, TAO RN kj2 Corrections: (The following items were deleted from the chart) 11:24 11:24 BLOOD CULTURE*+BA.LAB.BRZ ordered. EDMS EDMS 11:24 11:24 CBC+H.LAB.BRZ ordered. EDMS EDMS 11:24 11:24 COMPREHENSIVE METABOLIC PANEL+C.LAB.BRZ ordered. EDMS EDMS 11:24 11:24 LACTATE+C.LAB.BRZ ordered. EDMS EDMS 11:24 11:24 PROTIME (+INR)+COAG.LAB.BRZ ordered. EDMS EDMS 11:24 11:24 PTT, ACTIVATED+COAG.LAB.BRZ ordered. EDMS EDMS 11:24 11:24 Wound Culture+BA.LAB.BRZ ordered. EDMS EDMS 11:24 11:24 Thorax W/ Con+CT.RAD.BRZ ordered. EDMS EDMS 16:06 13:43 rt kj2
--- NOTE | 2024-12-04 13:44 | ER ---
Nurse's Notes [facility] Name: Cira Warren Age: 54 yrs Sex: Female : 1970 Arrival Date: 12/04/2024 Time: 10:43 Bed 24 Private MD: Diagnosis: Postoperative abscess status post coronary artery bypass grafting Presentation: 12/04 11:08 Chief complaint: Patient states: had open heart surgery 3 weeks ago , my incision this iw morning is oozing a lot of puss, I had to go back last week for chest tubes and when they removed it they left a hole under my left breast, had surgery at [facility] . has appt with surgeon tomorrow Dr. Ross. Coronavirus screen: At this time, the client does not indicate any symptoms associated with coronavirus-19. Ebola Screen: No symptoms or risks identified at this time. Initial Sepsis Screen: Does the patient meet any 2 criteria? No. Patient's initial sepsis screen is negative. Does the patient have a suspected source of infection? No. Patient's initial sepsis screen is negative. Risk Assessment: Do you want to hurt yourself or someone else? Patient reports no desire to harm self or others. Onset of symptoms was December 04, 2024. 11:08 Method Of Arrival: Ambulatory iw 11:08 Acuity: SWETHA 3 iw Triage Assessment: 11:13 General: Appears in no apparent distress. Behavior is calm, cooperative. Pain: iw Complains of pain in xiphoid area, right breast and left breast Pain currently is 10 out of 10 on a pain scale. Neuro: Level of Consciousness is awake, alert, obeys commands. 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 Historical: - Allergies: 11:11 Heparin; iw - Home Meds: 11:11 amiodarone 200 mg Oral tablet 1 tab daily [Active]; aspirin 81 mg Oral tablet 1 tab iw daily [Active]; atorvastatin 40 mg Oral tablet 1 tab daily [Active]; clopidogrel 75 mg Oral tablet 1 tab daily [Active]; ferrous sulfate 325 mg (65 mg iron) Oral tablet daily [Active]; fluticasone propionate 50 mcg/actuation intranasal spray [Active]; furosemide 40 mg Oral tablet 1 tab daily [Active]; metoprolol tartrate 25 mg Oral tablet 0.5 tab every 12 hours [Active]; pantoprazole 40 mg Oral tablet 1 tab every morning [Active]; quetiapine 100 mg Oral tablet 2 tabs daily [Active]; - PMHx: 11:11 diabetes mellitus; Hyperlipidemia; neuropathy; iw - PSHx: 11:11 Appendectomy; cardiac stents X 5 (ec); iw - Immunization history:: Adult Immunizations unknown. - Infectious Disease History:: Denies. - Family history:: not pertinent. Screenin:15 [facility] ED Fall Risk Assessment (Adult) History of falling in the last 3 months, kj2 including since admission No falls in past 3 months (0 pts) Confusion or Disorientation No (0 pts) Intoxicated or Sedated No (0 pts) Impaired Gait Yes (1 pt) Mobility Assist Device Used Yes (1 pt) Altered Elimination No (0 pt) Score/Fall Risk Level 0 - 2 = Low Risk Maintained a safe environment, Hourly rounding (assess needs \T\ fall precautionary measures) done. Abuse screen: Denies threats or abuse. Denies injuries from another. Nutritional screening: No deficits noted. Tuberculosis screening: No symptoms or risk factors identified. Assessment: 12:15 General: Appears in no apparent distress. Behavior is cooperative. Pain: Complains of kj2 pain in chest and left breast and xiphoid area Pain currently is 6 out of 10 on a pain scale. Neuro: Level of Consciousness is awake, alert, obeys commands, Oriented to person, place, time, situation. Cardiovascular: Patient's skin is warm and dry. Respiratory: Airway Respiratory effort is unlabored. GI: No signs and/or symptoms were reported involving the gastrointestinal system. : No signs and/or symptoms were reported regarding the genitourinary system. 13:15 Reassessment: Patient appears in no apparent distress at this time. Patient and/or kj2 family updated on plan of care and expected duration. Pain level reassessed. Patient is alert, oriented x 3, equal unlabored respirations, skin warm/dry/pink. 14:18 Reassessment: Initiated transfer to [facility] for continuity of care as requested by Dr. mike Connell. DX: Postoperative abscess s/p CAB. Spoke with Angela, compensation coordinator. 15:04 Reassessment: called to give report to [facility] Reyes Douglas, placed on hold for 7 minutes. kj2 Will attempt shortly. 16:06 Reassessment: Patient appears in no apparent distress at this time. Patient and/or kj2 family updated on plan of care and expected duration. Pain level reassessed. Patient is alert, oriented x 3, equal unlabored respirations, skin warm/dry/pink. Vital Signs: 11:08 BP 156 / 90; Pulse 80; Resp 19; Temp 98.1; Pulse Ox 100% on R/A; Weight 75.3 kg; Height iw 5 ft. 6 in. ; Pain 10/10; 13:30 BP 138 / 70; Pulse 79; Resp 18; Pulse Ox 96% on R/A; kj2 14:30 BP 135 / 62; Pulse 83; Resp 20; Pulse Ox 97% on R/A; kj2 16:06 BP 134 / 64; Pulse 80; Resp 20; Temp 98.1; Pulse Ox 100% ; kj2 11:08 Body Mass Index 26.79 (75.30 kg, 167.64 cm) iw 11:08 Pain Scale: Adult iw ED Course: 10:46 Patient arrived in ED. im 10:48 Bobo Connell MD is Attending Physician. rt 11:11 Triage completed. iw 11:13 Arm band placed on. iw 11:50 Inserted saline lock: 24 gauge in left forearm, using aseptic technique. Blood bc6 collected. Flushed with 10 mL NS. 11:50 Missed attempt(s): 24 gauge in right forearm. Bleeding controlled, band aid applied, bc6 catheter tip intact. 12:09 Colleen Springer, RN is Primary Nurse. kj2 12:15 Patient has correct armband on for positive identification. Placed in gown. Bed in low kj2 position. Call light in reach. Provided Education on: call light. 12:59 CT Chest W/ Con In Process Unspecified. EDMS 14:37 pt accepted in transfer to [facility] by dr Hernadez admin approval given by Angela Skinner,pt going to ER. 15:19 Wound Culture Sent. kj2 Administered Medications: 13:29 Drug: morphine IVP or IV 4 mg IVP once over 4 mins Route: IVP; Infused Over: 4 mins; kj2 Site: left forearm; 15:19 Follow up: Response: No adverse reaction kj2 13:29 Drug: Ondansetron IVP 4 mg IVP once; over 2 minutes Route: IVP; Site: left forearm; kj2 15:19 Follow up: Response: No adverse reaction kj2 13:30 Drug: vancoMYCIN IVPB 1 grams IVPB once over 2 hrs Route: IVPB; Infused Over: 2 hrs; kj2 Site: left forearm; 15:40 Follow up: IV Status: Completed infusion; IV Intake: 250ml kj2 14:21 Drug: morphine IVP or IV 4 mg IVP once over 4 mins Route: IVP; Infused Over: 4 mins; kj2 Site: left forearm; 15:19 Follow up: Response: No adverse reaction kj2 15:39 Drug: morphine IVP or IV 4 mg IVP once over 4 mins Route: IVP; Infused Over: 4 mins; kj2 Site: left forearm; 16:05 Follow up: Response: No adverse reaction kj2 Medication: 12:15 VIS not applicable for this client. kj2 Intake: 15:40 IV: 250ml; Total: 250ml. kj2 Outcome: 13:43 ER care complete, transfer ordered by MD. rt 16:06 Patient left the ED. kj2 Signatures: Dispatcher [employer] EDMS Yahaira Vega Irene, TAO BURGER Marcelle Dawson RN RN ss Bobo Connell MD MD rt Jnaiya Talley 6 May Aguilar Krystal, RN RN kj2 Corrections: (The following items were deleted from the chart) 11:11 11:08 BP 156 / 90; Pulse 80bpm; Resp 19bpm; Pulse Ox 100% RA; Temp 98.1F; iw iw 11:13 11:08 Chief complaint: Patient states: had open heart surgery 3 weeks ago , my incision iw this morning is oozing a lot of puss, I had to go back last week for chest tubes and when they removed it they left a hole under my left breast, had surgery at [facility] iw 13:29 13:29 morphine IVP or IV 4 mg IVP in right forearm over 4 mins kj2 kj2
[2024-12-04 14:07] LABS: Anisocytosis 2+; Blood Morphology Comment NOTED (NOT SEEN); Platelet Estimate ADEQ; Poikilocytosis 1+; White Blood Cell Scan OK (OK)
[2024-12-04 14:25] LABS: PT Prothrombin Time 14.3 SECONDS (10-13.0); Protime INR 1.27
[2024-12-04 16:29] VITALS: TEMP 98.1
[2024-12-04 16:35] VITALS: BP 134/64; O2SAT 100
== END 2024-12-04 16:06 | disposition short-term general hospital (02) ==
LOC: ER 10:43
DX: T81.41XA Infection following a procedure, superficial incisional surgical site, initial encounter (principal); Z98.890 Other specified postprocedural states; Z95.1 Presence of aortocoronary bypass graft; E11.9 Type 2 diabetes mellitus without complications; E78.5 Hyperlipidemia, unspecified; Z79.82 Long term (current) use of aspirin; Z95.818 Presence of other cardiac implants and grafts
CPT/HCPCS: 93005; 87040 ×2; 87070; 85025; 36415; 87205; 85610; 83605; 85730; 80053; 71260; Q9967; J3370; J2405; J7050; 87077; 87186